=== PATIENT | female | born 1985 | race Caucasian/White ===

== ENCOUNTER → 2021-07-22 11:32 | Outpatient (CLI) | payer MEDICAID, SELFPAY ==
[2021-07-22 12:38] LABS: Basophils % 0.6 % (0.1-2.0); Eosinophils # 0.3 K/mm3 (0.0-0.4); Hemoglobin 13.8 g/dL (12.2-16.2); Lymphocytes # 1.3 K/mm3 (0.7-4.5); Lymphocytes % 23.2 % (10-50); Mean Corpuscular HGB Conc 31.5 g/dL (31.8-35.4); Mean Corpuscular Hemoglobin 30.1 pg (27.0-31.2); Mean Corpuscular Volume 95.5 fl (81-99); Mean Platelet Volume 8.1 fl (7.4-10.4); Monocytes # 0.2 K/mm3 (0.1-1.0); Monocytes % 3.4 % (1.7-9.3); Neutrophils # 3.7 K/mm3 (1.8-7.8); Neutrophils % 66.9 % (37.0-80.0); Platelet Count 232 K/mm3 (142-424); Red Cell Distribution Width 13.7 % (11.5-17.5); White Blood Count 5.6 K/mm3 (4.8-10.8)
[2021-07-22 13:40] LABS: Alanine Aminotransferase 21 U/L (12-78); Albumin Level 4.1 g/dl (3.5-5.0); Albumin/Globulin Ratio 1.4 (1.1-1.8); Alkaline Phosphatase 70 U/L (38-126); Anion Gap 10.1 mEq/L (5-15); Aspartate Amino Transferase 36 U/L (14-36); Bilirubin,Total 0.4 mg/dl (0.2-1.3); Blood Urea Nitrogen 6 mg/dl (7-17); Carbon Dioxide 25 mmol/L (22.0-30.0); Chloride 107 mmol/L (98-107); Chol/HDL Ratio 3.2 (1-3.5); Cholesterol 214 mg/dl (140-200); Estimated Glomerular Filt Rate 112 ml/min (>60); GFR (African American) 135 ML/MIN (>60); Globulin 2.9 g/dL (1.3-3.2); Glucose 119 mg/dl (74-100); HDL Cholesterol 66 mg/dl (40-60); Potassium 4.1 mmoL/L (3.5-5.1); Sodium 138 mmol/L (136-145); Triglycerides 120 mg/dl (30-150); VLDL Cholesterol 24 mg/dL (0-40)
[2021-07-22 14:08] LABS: Direct LDL Cholesterol 120.05 mg/dL (100-129)
[2021-07-22 14:12] LABS: Thyroid Stimulating Hormone 1.24 uIU/mL (0.465-4.68)
[2021-07-22 14:37] LABS: Hemoglobin A1C 5.1 % (4.0-6.0)
[2021-07-22 15:18] LABS: Amphetamine/Metha Screen,Urine Negative ng/ml (<1000); Barbiturates Screen,Urine Negative ng/ml (<200)
[2021-07-22 15:19] LABS: Benzodiazepines Screen,Urine Negative ng/ml (<200)
[2021-07-22 15:20] LABS: Cannabinoid Screen,Urine Negative ng/ml (<50); Cocaine Screen,Urine Negative ng/ml (<300)
[2021-07-22 15:21] LABS: Methadone Screen,Urine Negative ng/ml (<300)
[2021-07-22 15:22] LABS: Opiate Screen,Urine Negative ng/ml (<300); Phencyclidine Screen,Urine Negative ng/ml (<25)
== END ==
LOC: LAB 11:33 → LAB.DROPOF 13:43
PROVIDERS: PCP Family Medicine; Visit Provider Family Medicine
DX: D68.61 Antiphospholipid syndrome (principal); M54.9 Dorsalgia, unspecified
CPT/HCPCS: 36415; 80053; 80061; 80305; 83036; 84443; 85025

== ENCOUNTER → 2021-08-22 16:00 | Outpatient (CLI) | payer MEDICAID, SELFPAY ==
[2021-08-22 18:51] LABS: Alanine Aminotransferase 32 U/L (12-78); Albumin Level 4.3 g/dl (3.5-5.0); Albumin/Globulin Ratio 1.3 (1.1-1.8); Alkaline Phosphatase 88 U/L (38-126); Anion Gap 11.7 mEq/L (5-15); Aspartate Amino Transferase 53 U/L (14-36); Bilirubin,Total 0.6 mg/dl (0.2-1.3); Blood Urea Nitrogen 3 mg/dl (7-17); Carbon Dioxide 25 mmol/L (22.0-30.0); Chloride 106 mmol/L (98-107); Estimated Glomerular Filt Rate 112 ml/min (>60); GFR (African American) 135 ML/MIN (>60); Globulin 3.2 g/dL (1.3-3.2); Glucose 98 mg/dl (74-100); Lipase 154 U/L (23-300); Potassium 4.7 mmoL/L (3.5-5.1); Sodium 138 mmol/L (136-145); Total Protein,Serum 7.5 g/dl (6.3-8.2)
== END ==
PROVIDERS: Visit Provider Family Medicine
DX: K85.90 Acute pancreatitis without necrosis or infection, unspecified (principal)
CPT/HCPCS: 80053; 83690

== ENCOUNTER → 2021-09-03 10:08 | Outpatient (CLI) | payer MEDICAID, SELFPAY ==
[2021-09-03 11:23] LABS: Basophils % 0.7 % (0.1-2.0); Eosinophils # 0.2 K/mm3 (0.0-0.4); Eosinophils % 5.9 % (0.1-12.0); Hematocrit 41.5 % (37.0-47.0); Hemoglobin 13.5 g/dL (12.2-16.2); Lymphocytes # 1.5 K/mm3 (0.7-4.5); Lymphocytes % 36.3 % (10-50); Mean Corpuscular HGB Conc 32.6 g/dL (31.8-35.4); Mean Corpuscular Hemoglobin 30.7 pg (27.0-31.2); Mean Corpuscular Volume 94.1 fl (81-99); Monocytes # 0.3 K/mm3 (0.1-1.0); Monocytes % 7.4 % (1.7-9.3); Neutrophils % 49.6 % (37.0-80.0); Platelet Count 276 K/mm3 (142-424); Red Blood Count 4.41 M/mm3 (4.20-5.40); Red Cell Distribution Width 13.3 % (11.5-17.5)
[2021-09-03 11:31] LABS: INR 1.03 (0.9-1.1); Prothrombin Time 11.6 seconds (10.1-12.5)
[2021-09-03 13:32] LABS: Chloride 109 mmol/L (98-107); Potassium 4.3 mmoL/L (3.5-5.1); Sodium 135 mmol/L (136-145)
[2021-09-03 13:34] LABS: Amylase 63 U/L (30-110); Blood Urea Nitrogen 9 mg/dl (7-17); Estimated Glomerular Filt Rate 112 ml/min (>60); GFR (African American) 135 ML/MIN (>60)
[2021-09-03 13:35] LABS: Alanine Aminotransferase 22 U/L (12-78); Albumin Level 3.8 g/dl (3.5-5.0); Albumin/Globulin Ratio 1.3 (1.1-1.8); Alkaline Phosphatase 62 U/L (38-126); Anion Gap 5.3 mEq/L (5-15); Aspartate Amino Transferase 35 U/L (14-36); Bilirubin,Total 0.5 mg/dl (0.2-1.3); Calcium 7.9 mg/dl (8.4-10.2); Carbon Dioxide 25 mmol/L (22.0-30.0); Globulin 2.9 g/dL (1.3-3.2); Glucose 67 mg/dl (74-100); Lipase 221 U/L (23-300); Total Protein,Serum 6.7 g/dl (6.3-8.2)
--- NOTE | 2021-09-04 07:57 | PC.NURSE ---
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 States on pt portal she has COVID results of positive and pt would like to double check. Pt covid swab is positive at this time. pt is scheduled for gallbladder surgery in the am with Dr Vang. was contacted and notified of results. per Dr Vang, notify pt that she needs to reschedule her surgery due to positive test results. Surgery department also notified at this time.
== END ==
PROVIDERS: Visit Provider Surgery
DX: Z01.812 Encounter for preprocedural laboratory examination (principal); U07.1 COVID-19; K85.10 Biliary acute pancreatitis without necrosis or infection
CPT/HCPCS: 36415; 80053; 82150; 83690; 85025; 85610; C9803; U0003; U0005

== ENCOUNTER → 2021-09-14 14:23 | Outpatient (CLI) | payer MEDICAID, SELFPAY | PROVIDERS: PCP Nurse Practitioner Family; Visit Provider Nurse Practitioner Family | DX: R55 Syncope and collapse (principal) | CPT/HCPCS: 93225; 93226 ==

== ENCOUNTER → 2021-09-17 10:45 | Outpatient (CLI) | payer MEDICAID, SELFPAY | PROVIDERS: PCP Family Medicine; Visit Provider Surgery | DX: Z01.812 Encounter for preprocedural laboratory examination (principal); Z11.52 Encounter for screening for COVID-19; K85.10 Biliary acute pancreatitis without necrosis or infection | CPT/HCPCS: C9803; U0003; U0005 ==

== ENCOUNTER 2021-09-20 06:05 | Day surgery (SDC) | payer MEDICAID, SELFPAY ==
[2021-09-15 14:23] VITALS: BMI 37.6
[2021-09-20] VITALS (16 sets, daily range): BP systolic 117–168; BP diastolic 55–94; PULSE 88–97; RESP 16–18; TEMP 36.2–43; O2SAT 96–100
[2021-09-20 06:21] LABS: Urine Pregnancy, HCG Qual. Negative (Negative)
--- NOTE | 2021-09-20 07:03 | HMH.ANESCL ---
[facility] Anesthesia Checklist - Structural Data Admitted From: Home Planned Operative Procedure/s: luis m garay Consent for Planned Operative Procedure(s) Verified: Yes - Additional verifications Anesthesia Reactions: No Hx Blood Transfusions: No Blood Transfusion Reaction: No - Airway Assessment C-Spine Mobility Assessed: Yes TMJ Mobility Assessed: Yes Dentition: Edentulous - Neurological Assessment Level of Consciousness: Awake, Alert, Appropriate - Anesthesia Plan Anesthesia Risk discussed: Yes Anesthesia Plan: Verified ASA Class: III Anesthesia Type: General [facility] History I have reviewed the patient's past medical history: Yes Medical History: Denies:: Cancer, Diabetes Mellitus Type 1, Diabetes Mellitus Type 2, Internal Pacemaker, MRSA, Seizures *Have you ever received a pneumonia vaccine?: No *Have you received a flu vaccine this season?: Yes Other Medical History: Reports: Other. Denies: Blood Transfusion Reaction Anesthesia experience/problems:: none Other Surgeries: No: Pacemaker Amputation: No Fractures: No - *Social History Smoking Status: Current every day smoker Tobacco Type: cigarettes # Packs/Day (cigarettes): 1 Alcohol Intake: current Alcohol Intake Frequency:: a few times a month Substance Use Type: denies use *Occupational Status:: disabled Housing: house Household Members: family *Travel in the last 8 weeks: None Family Hx:: No significant family history
--- NOTE | 2021-09-20 08:36 | XR_ITS ---
FINAL REPORT CLINICAL HISTORY: CHOLANGIOGRAM 0.15 fluoro time FINDINGS: Intraoperative cholangiogram was performed. No definite filling defect is identified to suggest an obstruction. IMPRESSION: No definite filling defect identified. Reviewed, Interpreted and Dictated by Richard Estes III, MD Transcribed by Annamarie Hill Authenticated by Richard Estes III, MD on 09/20/2021 09:18:21 AM [facility]
--- NOTE | 2021-09-20 08:55 | HMH.OPNOTE ---
Date of procedure: 09/20/21 Pre-op Diagnosis:: History of biliary pancreatitis Post-op Diagnosis:: Same Procedure performed:: Laparoscopic cholecystectomy with intraoperative cholangiogram Surgeon:: Richard Vang MD DIRECTOR DESIGN:: Billy Armstrong Anesthesia: GETA Estimated blood loss (mL): 15 Clinical Note:: Patient is a 36-year-old female from [facility] reportedly referred by Dr. Love for gallbladder. Patient states that she is originally from [place]. She has known gallstones since at least 2017. She underwent laparoscopic gastric bypass [id number] in 2018. She states that the tentative plan at that time was for removal of her gallbladder but this could not be done as her liver was too big . Patient had apparently developed acute onset of epigastric pain and had reportedly been seen in [facility]. She was diagnosed with pancreatitis. She states that this was by blood work. She apparently did not have imaging. She was managed as an outpatient from the emergency department. She presented to [facility] and was admitted on 08/14/2021 and discharged on 08/17/2021 for acute pancreatitis. She apparently had elevated lipase. Liver function tests were unremarkable. CT scan did reveal findings of radiographic pancreatitis with a moderately distended gallbladder. Gallbladder ultrasound revealed multiple gallstones, gallbladder wall thickening, with normal 4 mm common bile duct. There was noted to be some coarse architecture and heterogenicity of the liver. Interestingly she had a HIDA scan with CCK which did reveal a normal ejection fraction. Interestingly, she was discharged for follow-up as an outpatient. She was seen as a surgical consultation. Based on prior history is felt that she may have had biliary pancreatitis. Options were discussed. She wished to pursue surgery. Plan was made for laparoscopic with possibly open cholecystectomy with intraoperative cholangiogram. Operative findings:: He had a distended slightly thickened gallbladder with numerous small stones with a moderate stone. She had some mild fatty infiltration of the liver. There was a prominent vessel posterior to the gallbladder in the liver bed. Operative note:: Patient was taken to the operating room. She was given preoperative intravenous antibiotics. In the operating room she was placed in a supine position. General anesthesia was induced via endotracheal tube. Abdomen was prepped and draped in the standard surgical fashion. Subumbilical skin incision was made. Dissection was carried down to the fascia. Abdominal wall dose was inserted. Veress needle was inserted but good insufflation pressures could not be achieved. Veress needle was then inserted through a small 1 to 2 mm incision in the left subcostal area. CO2 pneumoperitoneum was achieved. 11 mm optical trocar was inserted at the umbilicus. Intraperitoneal contents were visualized. She was positioned in reverse Trendelenburg with left side down. A couple of 5 mm trochars were inserted in the right upper abdomen. 10 mm trocar was inserted in the epigastrium. There were some adhesions of omentum focally to a point in the right upper abdomen likely previous laparoscopy trocar site. This was taken down using CHARANJIT ultrasonic robotic jose f. She had some mild fatty infiltration of the liver. Gallbladder was grasped retracted anteriorly and superiorly over the dome of the liver. Infundibulum the gallbladder was retracted anterior laterally. Blunt dissection was carried out the neck of the gallbladder bluntly incising the visceral peritoneum. Obvious cystic artery was actually anterior to the cystic duct. This was coagulated with CHARANJIT ultrasonic harmonic jose f and divided. Dissection was carried out of the cystic duct. There was noted to be multiple small stones in the neck of the gallbladder. Cystic duct was isolated. It was clipped proximal to the gallbladder.
--- NOTE | 2021-09-20 09:05 | P.PN_ITS ---
[facility] Anesthesia Record Part I Intake, IV Amount: 1,200 Estimated blood loss (mL): 10 Urine output (mL): 0 Blood Pressure: 168/94 SaO2: 100 Pulse Rate: 94 Respiratory Rate: 16 Temperature: 99.5 F Patient is:: Drowsy, Stable Stable to PACU at:: 09:00
--- NOTE | 2021-09-20 09:47 | PC.NURSE ---
0942-detailed report called to ARLEY Hanson, pt reports pain continues to slowly ease, denies nausea, vss 0944-pt transported to post op via stretcher w/yumiko rails up and left in care of ARLEY Hanson with bed locked in lowest position, vss, pt stable
--- NOTE | 2021-09-20 09:55 | P.PN_ITS ---
[facility] Anesthesia Record Part II Discharge Time: 09:40 Destination: Surgical Day Care (OP Surgery) PACU nurse assessment reviewed?: Yes Patient Condition:: Good Anesthesia Complications:: None Swallowing reflex intact?: Yes Cyanosis?: No Blood Pressure: 134/70 Pulse Rate: 88 Temperature: 99.5 F Mental Status: Alert & Oriented Pain level:: 6 Nausea and/or vomitting:: None Intake, IV Amount: 0
== END 2021-09-20 10:30 | disposition home or self-care (01) ==
LOC: OR 06:06
PROVIDERS: PCP Family Medicine; Visit Provider Surgery
PROC: 0FT44ZZ Resection of Gallbladder, Percutaneous Endoscopic Approach (ICD-10-PCS; CPT 47562; principal; 2021-09-20 07:30)
DX: K85.10 Biliary acute pancreatitis without necrosis or infection (principal); Z79.899 Other long term (current) drug therapy; F17.210 Nicotine dependence, cigarettes, uncomplicated; R29.6 Repeated falls
CPT/HCPCS: 47563; 74300; 81025; 96374; J2405; J2710

== ENCOUNTER → 2021-10-05 08:05 | Outpatient (CLI) | payer MEDICAID, SELFPAY ==
--- NOTE | 2021-10-05 | CA_ITS ---
APPROVED REPORT Exam: Exercise Treadmill Technologist: Teena Carlson Ht: 5 ft 11 in Wt: 285 lbs BSA: 2.45 m2 HR: 77 bpm BP: 136/76 mmHg Indications: Chest pain Medical History Medications: Clonidine,,,,, PERCOCET,,,,, Zolpidem,,,,, FluTICASONE,,,,, Cyclobenzaprine,,,,, Metronidazole,,,,, ONdansetron,,,,, Oxcarbazepine,,,,, UBrelvy,,,,, Stress Test Details Test: Neeraj HR Resting HR: 95 bpm Max Heart Rate (APMHR): 182.831694 bpm Max HR Achieved: 174 bpm Target HR (85% APMHR): 154.793632 bpm % of APMHR: 95.60 Recovery HR: 86 bpm BP Resting BP: 136.0/76.0 mmHg Max BP: 160.0/80.0 mmHg Recovery BP: 133.0/67.0 mmHg ECG Resting ECG: Normal sinus rhythm, ST abnormalities inferiorly and laterally. Clinical Exercise duration: 04:58 min Highest Stage Achieved: Exercise capacity: 7.0 METs Stress ECG Conclusion Patient exercised 4:58 into stage II Neeraj Protocol. Test stopped due to shortness of air, fatigue. Symptoms: Shortness of air. No chest pain. Arrhythmias/Ectopy: None ST-T Changes: Exaggeration of baseline ST-T abnormalities. Conclusion: Non-diagnostic GXT due to baseline abnormalities. GXT only (no imaging). Test Summary REST . . . . . . . Sitting REST . . . . . . . Standing REST 02:48 0.0 0.0 95 . 136/ 76 . . Stage 1 01:00 10.0 1.7 121 . . . . Stage 1 02:00 10.0 1.7 138 . . . . Stage 1 . . . . . . . Shortness of Breath Stage 1 03:00 10.0 1.7 146 . 160/ 80 . . Stage 2 01:00 12.0 2.5 160 . . . . Stage 2 01:58 12.0 2.5 171 . . . Stop exercise at 04:58 RECOVERY 01:00 0.0 0.0 144 . . . . RECOVERY 02:00 0.0 0.0 116 . 156/ 80 . . RECOVERY 03:00 0.0 0.0 88 . 156/ 80 . . RECOVERY 04:00 0.0 0.0 89 . 130/ 62 . . RECOVERY 05:00 0.0 0.0 84 . 130/ 62 . . RECOVERY 05:31 0.0 0.0 90 . 133/ 67 . . Electronically signed by : Clive Keller MD 10/05/2021 18:12:26
--- NOTE | 2021-10-05 08:06 | CA_ITS ---
APPROVED REPORT EXAM: Comprehensive 2D, Doppler, and color-flow Echocardiogram Substance Abuse Rn: Jackie Espinosa CRT Ht: 5 ft 11 in Wt: 285lbs BSA: 2.45 BP: 136/82 mmHg Indications: Chest Pain, Obesity, Fatigue, chest pain 2D Dimensions Aortic Root 2.37 cm LA Volume 54.80 mL LA Volume Index 22.40 mL/m2 (M/F) 16-34 M-Mode Dimensions RVDd 2.28 cm (0.9-2.6) LA Diam 4.04 cm (1.9-4.0) LVDd 5.48 cm (3.5-5.7) Ao Diam 4.13 cm (2.0-3.7) LVDs 3.91 cm (3.5-5.7) IVSd 1.02 cm (0.6-1.1) PWd 0.84 cm (0.6-1.1) EF (Teich) 54.70% FS 28.60% EDV (Teich) 146.20 mL TAPSE 1.98 (<1.7) ESV (Teich) 66.30 mL LV Diastology E Decel Time 217.00 (160-240 msec) E/A Ratio 1.41 MED E' 8.40 (< 7 cm/sec) MED A' 6.80 cm/s E'/MED E' Ratio 9.36 (>14) LAT E' 11.90 (<10 cm/sec) LAT A' 8.60 cm/s E/LAT E' Ratio 6.61 (>14) Aortic Valve AO Peak GR. 6.00 mmHg Mitral Valve MV E Max Gadiel. 79.00 (40-130 cm/s) MV A Velocity 56.00 (40-130 cm/s) E/A Ratio 1.41 MV Decel. Time 217.00 (160-240 ms) MV PHT 63.00 ms Pulmonary Valve PV Peak Velocity 85.00 (50-150 cm/s) Tricuspid Valve TR P. Velocity 219.00 cm/s RAP Estimate 10.00 mmHg RVSP 29.30 mmHg Left Ventricle Left atrium is normal size, left ventricle is normal size, there is no concentric left ventricular hypertrophy, visually estimated ejection fraction 55% with no regional wall motion abnormality, diastolic parameters are within normal range. Right Ventricle Right atrium and right ventricle are normal size and contractility. Aortic Valve Aortic valve is grossly normal, there is no aortic stenosis or aortic insufficiency. Mitral Valve Mitral valve grossly normal, there is trace mitral regurgitation. Tricuspid Valve Tricuspid grossly normal, there is trace tricuspid regurgitation, tricuspid regurgitation jet velocity is inadequate for calculation of the right ventricular systolic pressure. Pulmonic Valve Pulmonic valve is poorly visualized. Great Vessels Aortic root is normal size. Inferior vena cava normal size with normal inspiratory collapse. Pericardium No significant pericardial effusion. Conclusion 1. Normal left ventricular size, preserved left ventricular systolic function, visually estimated ejection fraction 55% with no regional wall motion abnormality, diastolic parameters are within normal range. 2. Trace mitral and tricuspid regurgitation. 3. No significant pericardial effusion. 4. Inferior vena cava is normal size with normal inspiratory collapse. Electronically signed by : Harry Woods MD 10/05/2021 20:55:04
== END ==
PROVIDERS: PCP Family Medicine; Visit Provider Nurse Practitioner Family
DX: R07.9 Chest pain, unspecified (principal)
CPT/HCPCS: 93017; 93306

== ENCOUNTER → 2021-10-12 11:30 | Outpatient (CLI) | payer MEDICAID, SELFPAY ==
--- NOTE | 2021-10-12 | CA_ITS ---
APPROVED REPORT Exam: Pharmacologic Technologist: Blanquita Sanchez, Ht: 5 ft 11 in Wt: 281 lbs BSA: 2.44 m2 HR: 73 bpm BP: 122/61 mmHg Rhythm: NSR, ST-T abns inferiorly and laterally Medical History Medications: Clonidine,,,,, Metoprolol,,,,, Asa,,,,, Zolpidem,,,,, Clotrimazole,,,,, FluTICASONE,,,,, Oxcarbazepine,,,,, CyclobenAPRINE,,,,, ONdanESETRAN,,,,, Norgestimate,,,,, UBrelvy,,,,, Bactrim,,,,, Stress Test Details Test: LEXISCAN HR Resting HR: 72 bpm Max Heart Rate (APMHR): 182.349089 bpm Max HR Achieved: 120 bpm Target HR (85% APMHR): 154.757619 bpm % of APMHR: 65.93 Recovery HR: 92 bpm BP Resting BP: 122/61 mmHg Max BP: 127/62 mmHg Recovery BP: 119.0/67.0 mmHg ECG Resting ECG: NSR, ST-T abns inferiorly and laterally Clinical Exercise duration: 04:01 min Highest Stage Achieved: Exercise capacity: 1.0 METs Stress ECG Conclusion During lexiscan pt experinced mild chest tightness, mild SOA, quizzy stomach. No arrhythmias noted. Mild exaggeration of baseline abns. Non diagnostic lexiscan stress. Myoview images reported separately. Electronically signed by : Harry Woods MD 10/12/2021 18:25:18
--- NOTE | 2021-10-12 11:34 | NM_ITS ---
APPROVED REPORT Exam: Nuclear Stress Test Indication: OBESITY, TOB USE, FM HX, C.P., SOB, SYNCOPE, FATIGUE, ABN EKG Patient Location: Outpatient Stress Tech: Blanquita Sanchez NM Tech:Kaila Kuo TATOJerson RT (R)(N)(M) Ht: 5 ft 11 in Wt: 281 lbs Bra Size: 44DD HR: 73 bpm BP: 122/61 mmHg BSA: 2.44 m2 BMI: 39.1 History: OBESITY, TOB USE, FM HX, C.P., SOB, SYNCOPE, FATIGUE, ABN EKG Procedure: Patient received a 0.4 mg of intravenous Lexiscan, resting heart rate 73 bpm, resting blood pressure 122/61 mmHg, with Lexiscan maximum heart rate achived was 112 bpm which is Less than 85 % of the maximum predicted heart rate and blood pressure was 127/62 mmHg. MILD C.P. Electrocardiogram Resting electrocardiogram shows sinus rhythm nonspecific ST-T changes, with Lexiscan there is less than 1.[address] segment depression noted from the baseline EKG. The EKG portion of the Lexiscan is nondiagnostic. Cardiac Stress and Resting SPECT Images: Cardiac Stress and Resting SPECT images were obtained using technetium 99m Myoview 30.1 mCi stress and 10.60 mCi at rest. Gated SPECT for analysis of segmental wall motion and calculation of the ejection fraction also done. Cardiac stress and resting SPECT images show uniform myocardial activity without segmental perfusion abnormality, computer derived ejection fraction is 41% with left ventricular global hypokinesis. Conclusion: 1. The EKG portion of the Lexiscan is nondiagnostic. 2. No scintigraphic evidence of reversible ischemia seen, computer ejection fraction is 41% with left ventricular global hypokinesis. Right ventricle is normal size and contractility. 3. Abnormal Lexiscan Myoview study due to low ejection fraction. Electronically signed by : Harry Woods MD 10/12/2021 19:11:56
== END ==
PROVIDERS: PCP Family Medicine; Visit Provider Nurse Practitioner Family
DX: R07.9 Chest pain, unspecified (principal); G89.29 Other chronic pain; M54.9 Dorsalgia, unspecified; Z82.49 Family history of ischemic heart disease and other diseases of the circulatory system
CPT/HCPCS: 78452; 93017; A9502; J2785

== ENCOUNTER → 2022-02-27 08:04 | Outpatient (POV) | payer MEDICAID, SELFPAY ==
[2022-02-27 08:46] VITALS: BP 136/84; PULSE 95; RESP 18; TEMP 36.8; O2SAT 96; BMI 37.0
--- NOTE | 2022-02-27 09:23 | HMH.PMCON ---
Assessment and Plan (1) Low back pain Status: Acute Category: Medical Code(s): M54.50 - Low back pain, unspecified (2) Bilateral leg pain Status: Acute Category: Medical Code(s): M79.604 - Pain in right leg; M79.605 - Pain in left leg - Assessment and plan all Dx Assessment and Plan for all problems:: Patient states she is having worsening low back pain that occasionally radiates into her bilateral lower extremities. I have discussed with the patient regarding our office being a injective therapy clinic and that I think she would benefit highly from these injections. Patient had negative disposition for the entire clinic visit. Patient has no interest in doing injections or physical therapy at this time. I have told her I would like to get a copy of her records/MRI imaging from her doctor at [facility]. I have explained to the patient at this time and limited in what I can offer her without having updated imaging. I did tell the patient that we would be unable to prescribe opioids and benzos together and that typically we would not take over her oral medication unless in combination with other treatments. I did talk to her regarding starting a compounding cream and that we would follow-up in office in 2 weeks following getting her imaging from . Patient will return to clinic in 2 weeks for follow-up and reevaluation of symptoms Patient has been instructed to contact the clinic with any concerns before the next appointment. Dr. Schafer has reviewed this note and agrees with this plan of care. This note was dictated using voice recognition software and make contain errors or omissions. Patient left our office without scheduling a follow-up visit. Prescription of the compounding cream will be put on hold. HPI - Data of Consult Patient: new to practice Consult date: 02/27/22 Requesting Physician: Inge Bose APRN Primary Care Provider: Rios Allred MD Family Provider: Clive Love - Consult Narrative Reason for consult: Low back pain, bilateral leg pain History of present illness: Ms. Olguin is a 36 year old female resents today as a new new patient. She is a referral from Clive Love. Patient states that she is been experiencing constant low back pain that occasionally radiates into both bilateral extremities. Patient denies any trauma or injury to the sites. She states that she has sciatic issues bilaterally, she has degenerative disc disease of her lumbar spine and also has neuropathy unrelated to diabetes. Patient rates her pain a 9 out of 10 today patient states that she has seen a pain doctor in the past in [place]. She also states that she has seen a Ortho surgeon at [facility]. She states that this physician Dr. Mata at has done imaging and that she has appointment with him tomorrow. She states that he has stated that she does need surgery for her condition. Patient has had gastric bypass in the past and cannot tolerate any NSAIDs. Patient states that she has tried [id number] Tylenol and it does not do anything. She states she has used heat and ice with no improvement of symptoms. She also states she has used multiple [id number] topical creams and patches with no relief. She states that she has been to the ER recently where the ER physician prescribed her Percocet 5 mg along with Flexeril, lidocaine patches and Valium and this did give her relief. Patient currently takes gabapentin 300 mg 3 times a day that is written by Dulce Gomez in [place]. She is also managed with oxycodone 10 mg twice a day and Ambien 10 mg daily, written by Dr. Love in [facility]. Patient is prescribed clonazepam 0.5 mg twice a day by Dr. Jefry Montemayor in [place]. Patient states she has had 1 injection in the past that provided no relief and actually made her symptoms worse.patient said that she is not interested in injective therapy. Patient states that she has been
== END ==
PROVIDERS: PCP Emergency Medicine; Visit Provider Nurse Practitioner Family
DX: M54.50 Low back pain, unspecified (principal); M79.604 Pain in right leg; M79.605 Pain in left leg
CPT/HCPCS: 99202; G0463

== ENCOUNTER → 2022-05-30 09:17 | Outpatient (POV) | payer MEDICAID, SELFPAY ==
[2022-05-30 09:37] VITALS: BP 113/60; PULSE 74; RESP 18; O2SAT 98; BMI 35.9
--- NOTE | 2022-05-30 10:52 | EXP.PAIN.SOA ---
[facility] Pain Management SOAP Note Subjective:: Patient is a pleasant 36-year-old female who presents today for follow-up. We are currently treating the patient for degenerative disc disease of lumbar spine with lumbar radiculopathy symptoms, low back pain, bilateral leg pain. Today she rates her pain a 9 out of 10. Patient denies any change location or type of pain she experiences. Patient does state that her pain is all in her low back that radiates into her lower extremities. She describes this as a aching, throbbing sensation that is worse with increased activity. Since our last visit the patient has had a hairline fracture of her left ankle that she was seen at [facility] for. Today she presents with crutches. Patient states that she fell in a hole in her yard on Sunday resulting in this injury. Patient has seen a doctor in the past in [place]. She was last seen a Ortho surgeon at the [facility]. She states that Dr. Mata had done imaging and was stating that since her last fall in January she is now a surgical candidate however the patient states that he has concerns of possible paralyzation and so he is not proceeded forward with this plan of care. Patient states she does have a gastric bypass in the past and cannot tolerate any NSAIDs. Patient states she has tried [id number] Tylenol but it does not do anything for her pain symptoms. Patient also states she has tried heat and ice with no improvement as well as topical creams and patches. Patient states that she has had injections in the past both resulting in her going to the ER due to worsening, burning pain following these and is not interested in injective therapy at this time. Patient is currently managed with gabapentin 600 mg 3 times a day, clonazepam 0.5 mg twice a day and Tylenol 3 3 times a day by her primary care doctor Dr. Love. Patient denies any side effects from these medications. She states these medications do help manage her pain symptoms. Patient also states she has been to a chiropractor and physical therapy in the past however neither of these options provided any improvement of her symptoms. Her Maciej is [phone]. It has been reviewed and appropriate. Review of Systems: General: No recent weight changes, no fever, no sleep disturbances Respiratory: No cough, no shortness of air, no recurring pulmonary infections Cardiovascular/peripheral vascular: No chest pain, no palpitations, no edema, no shortness of breath Gastrointestinal: No new onset incontinence, normal bowel movements reported Genitourinary: No new onset incontinence Musculoskeletal: Low back pain, bilateral leg pain Psychiatric: [Normal mood/affect] Neurological: [Denies weakness in extremities], [denies balance issues] Objective:: Physical Exam: General: Alert and oriented x3, no acute distress, pleasant and cooperative Lungs: Respirations even and unlabored, symmetrical chest expansion Eyes: PERRL Musculoskeletal: Flexion and extension of lumbar [spine] somewhat guarded secondary to pain, [antalgic gait noted] Neurological: Speech clear, no gross sensory deficit Assessment:: Degenerative disc disease of lumbar spine with lumbar radiculopathy symptoms, low back pain, bilateral leg pain Plan:: Patient continues to experience significant pain in her low back that radiates into her bilateral lower extremities. Patient did have limited range of motion of her lumbar spine during today's visit. Patient has tried and failed conservative therapy such as oral medications, topicals, heat and ice, injective therapy, physical therapy, at home stretching and exercise longer than 6 weeks. I have discussed with the patient that she may be a beneficial candidate for a spinal cord stimulator trial. Risk and benefits were discussed with the patient as well as educational handouts given out. Patient would like to proceed forward with this plan of care. I will order a psychiatric evaluation with
== END ==
PROVIDERS: PCP Family Medicine; Visit Provider Nurse Practitioner Family
DX: M51.16 Intervertebral disc disorders with radiculopathy, lumbar region (principal); M79.604 Pain in right leg; M79.605 Pain in left leg; Z72.0 Tobacco use
CPT/HCPCS: 99212; G0463

== ENCOUNTER → 2022-06-21 12:44 | Outpatient (CLI) | payer MEDICAID, SELFPAY ==
[2022-06-21 13:29] LABS: Basophils # 0.1 K/mm3 (0-0.2); Eosinophils # 0.2 K/mm3 (0.0-0.4); Eosinophils % 3.3 % (0.1-12.0); Hematocrit 40.7 % (37.0-47.0); Hemoglobin 13.2 g/dL (12.2-16.2); Lymphocytes # 1.8 K/mm3 (0.7-4.5); Lymphocytes % 37.9 % (10-50); Mean Corpuscular HGB Conc 32.5 g/dL (31.8-35.4); Mean Corpuscular Hemoglobin 32.7 pg (27.0-31.2); Mean Corpuscular Volume 100.6 fl (81-99); Mean Platelet Volume 7.9 fl (7.4-10.4); Monocytes # 0.3 K/mm3 (0.1-1.0); Monocytes % 5.9 % (1.7-9.3); Neutrophils # 2.4 K/mm3 (1.8-7.8); Neutrophils % 51.8 % (37.0-80.0); Platelet Count 190 K/mm3 (142-424); Red Blood Count 4.05 M/mm3 (4.20-5.40); Red Cell Distribution Width 12.9 % (11.5-17.5); White Blood Count 4.7 K/mm3 (4.8-10.8)
[2022-06-21 15:27] LABS: Alanine Aminotransferase 19 U/L (12-78); Alkaline Phosphatase 77 U/L (38-126); Anion Gap 11.4 mEq/L (5-15); Aspartate Amino Transferase 31 U/L (14-36); Bilirubin,Unconjugated 0.1 mg/dL (0.0-1.1); Blood Urea Nitrogen 7 mg/dl (7-17); Calcium 8.9 mg/dl (8.4-10.2); Carbon Dioxide 26 mmol/L (22.0-30.0); Chloride 108 mmol/L (98-107); Chol/HDL Ratio 4.2 (1-3.5); Cholesterol 168 mg/dl (140-200); Estimated Glomerular Filt Rate 93 ml/min (>60); GFR (African American) 113 ML/MIN (>60); Glucose 79 mg/dl (74-100); HDL Cholesterol 40 mg/dl (40-60); Magnesium 1.9 mg/dl (1.6-2.3); Potassium 4.4 mmoL/L (3.5-5.1); Sodium 141 mmol/L (136-145); Total Protein,Serum 6.7 g/dl (6.3-8.2); Triglycerides 169 mg/dl (30-150); VLDL Cholesterol 34 mg/dL (0-40)
[2022-06-21 15:29] LABS: Bilirubin,Total < 0.1 mg/dl (0.2-1.3)
[2022-06-21 15:30] LABS: Bilirubin,Indirect 0.1 mg/dL (0.0-0.9)
[2022-06-21 15:38] LABS: Direct LDL Cholesterol 92.32 mg/dL (100-129)
[2022-06-21 15:44] LABS: Free T4 (Free Thyroxine) 1.06 ng/dl (0.78-2.19)
[2022-06-21 15:57] LABS: Thyroid Stimulating Hormone 1.34 uIU/mL (0.465-4.68)
== END ==
PROVIDERS: PCP Family Medicine; Visit Provider Internal Medicine
DX: R06.00 Dyspnea, unspecified (principal); R00.2 Palpitations; I20.8 Other forms of angina pectoris; R94.30 Abnormal result of cardiovascular function study, unspecified; R94.31 Abnormal electrocardiogram [ECG] [EKG]
CPT/HCPCS: 36415; 80048; 80061; 80076; 83735; 84439; 84443; 85025

== ENCOUNTER 2022-06-29 08:10 | Day surgery (SDC) | payer MEDICAID, SELFPAY ==
[2022-06-29] VITALS (12 sets, daily range): BP systolic 114–152; BP diastolic 76–98; PULSE 59–92; RESP 16–18; TEMP 37; O2SAT 93–100; BMI 36.5
--- NOTE | 2022-06-29 07:10 | IR_ITS ---
APPROVED REPORT Patient Location: Outpatient Retail Service Technician: ADY Restrepo RT (R) PROCEDURES Left heart catheterization Left ventriculogram Selective coronary injury INDICATION High risk abnormal Myoview, Persistent angina pectoris, Informed consent was obtained prior to the procedure. COMPLICATIONS None Estimated Blood Loss: Less than 10 ML TECHNIQUE One percent lidocaine used to anesthetize the right anterior aspect of the wrist. The right radial artery was accessed via the Seldinger technique. A 6 Yi sheath was placed in the right radial artery. 2.5 mg of verapamil, 800 mcg of nitroglycerin, 1mg Lidocaine and 5000 U Heparin were given through the arterial sheath. The papa catheter was also used to perform left heart catheterization, left ventriculogram and selective coronary angiogram. At the end of the procedure the sheath was removed good hemostasis was achieved using Traclet band, patient was transferred to the postop holding area in stable condition. ANGIOGRAPHIC RESULTS The left main artery Normal The left anterior descending artery Normal The circumflex artery Normal The right coronary artery Is dominant and has proximal 10 to 20% stenoses The BLANTON ventriculogram reveals Ejection fraction 50% The left ventricular end-diastolic pressure 25 mmHg IMPRESSION Mild nonflow limiting coronary disease Elevated LVEDP consistent with diastolic dysfunction Ejection fraction 50% also consistent with diastolic dysfunction likely from hypertensive heart disease PLAN 1. Standard therapy for risk factor modification for ischemic heart disease 2. Treatment of diastolic dysfunction 3. Recommend sleep study 4. Weight loss exercise Electronically signed by : Amado Rodriguez MD 06/29/2022 09:49:08
== END 2022-06-29 12:37 | disposition home or self-care (01) ==
PROVIDERS: PCP Family Medicine; Visit Provider Internal Medicine
DX: R94.31 Abnormal electrocardiogram [ECG] [EKG] (principal); I25.118 Atherosclerotic heart disease of native coronary artery with other forms of angina pectoris; F17.210 Nicotine dependence, cigarettes, uncomplicated; M79.605 Pain in left leg; M79.604 Pain in right leg; M51.36 Other intervertebral disc degeneration, lumbar region; Z82.49 Family history of ischemic heart disease and other diseases of the circulatory system; F60.3 Borderline personality disorder; Z79.899 Other long term (current) drug therapy
CPT/HCPCS: 93458; 99152; C1725; C1760; C1769; J1644; Q9967

== ENCOUNTER 2022-12-27 11:47 | Day surgery (SDC) | payer MEDICAID, SELFPAY ==
[2022-12-20 13:36] VITALS: BMI 41.3
[2022-12-27] VITALS (8 sets, daily range): BP systolic 79–160; BP diastolic 38–83; PULSE 63–71; RESP 14–18; TEMP 36.4–36.8; O2SAT 91–98
--- NOTE | 2022-12-27 12:24 | EXP.ANES.CKL ---
[facility] Disclaimer: The information contained in this section may have been updated after the patient was seen, as this information can be updated by other users. Medical History Abnormal electrocardiogram [ECG] [EKG] Abnormal result of cardiovascular function study Angina, class II Anxiety and depression Borderline personality disorder CAD (coronary atherosclerotic disease) Chest pain Dizziness Elevated left ventricular end-diastolic pressure (LVEDP) Palpitations Typical angina Surgical History History of cholecystectomy History of hysterectomy Hx of gastric bypass Hx of tooth extraction Family History Other Family history of Alzheimer's disease Family history of allergies Family history of diabetes mellitus type II Family history of irritable bowel syndrome Family history of macular degeneration Family history of myocardial infarction Social History Smoking Status: Current every day smoker tobacco type: cigarettes packs per day: 1 pack-years: 25 second hand exposure: Yes alcohol intake: never substance use type: denies use current occupational status: unemployed Travel in the last 8 weeks: [place] the [place] household members: spouse housing: house marital status: education level: college service: No current occupational exposures/hazards: No caffeine: Yes do you feel safe at home: Yes victim of physical abuse: No victim of emotional abuse: No victim of sexual abuse: No would you like helpful sources: No [facility] Anesthesia Checklist Patient Identification Patient Identification: Arm Band and Verbal (Name & ) Structural Data Admitted From: Home Planned Operative Procedure/s: Colonoscopy Consent for Planned Operative Procedure(s) Verified: Yes NPO Status Verified Time NPO: 00:00 Additional verifications Patient : No Anesthesia Reactions: No Hx Blood Transfusions: No Blood Transfusion Reaction: No Airway Assessment C-Spine Mobility Assessed: Yes TMJ Mobility Assessed: Yes Dentition: Edentulous Neurological Assessment Level of Consciousness: Awake Hx Seizures: No Numbness or tingling in extremities: No Anesthesia Plan Anesthesia Risk discussed: Yes Anesthesia Plan: Verified ASA Class: III Anesthesia Type: MAC
--- NOTE | 2022-12-27 13:27 | HMH.SCOPE ---
Procedure: Date: 12/27/22 Patient Date of :: 1985 Procedure Performed:: Colonoscopy Indications:: The patient is a 37 year old who presents for colonoscopy evaluation of intermittent blood in stools and chronic constipation Performing Provider:: Ike Velasco MD Referring Provider:: Clive Love MD Sedation:: See RN records Procedure:: After placing the patient in the left lateral decubitus position, the colonoscopy was gently inserted into the rectum and under direct visualization advanced to the cecum which was identified by transillumination in the right lower quadrant, identification of the ileocecal valve, appendiceal orifice, and cecal strap. Color, texture, mucosa, and anatomy of the colon were carefully examined with the scope. Findings:: Anal canal: normal Rectum: hemorrhoids Sigmoid colon: fair preparation Descending colon: fair preparation Splenic flexure: normal Transverse colon: normal without polyps or inflammatory changes Hepatic flexure: normal Ascending colon: fair preparation Cecum: fair preparation Terminal ileum: not visualized Impression: Hemorrhoids Fair bowel preparation Recommendations:: Recommend to increase fiber intake. Can use metamucil or citrucel to achieve up to 25 gm of fiber daily Miralax once daily and encourage increase hydration with water Can use topical treatments of hemorrhoids as needed Complications:: None Estimated blood obtained (mL): 0 Colonoscopy Component Colonoscopy Component Was a colonoscopy performed during today's procedure?: Yes Recommended follow up colonoscopy of at least 10 years?: Yes
--- NOTE | 2022-12-27 14:06 | SUR.PHASEII ---
[facility] CMA aware of bp
== END 2022-12-27 14:35 | disposition home or self-care (01) ==
LOC: OUTP 11:48
PROVIDERS: PCP Family Medicine; Visit Provider Internal Medicine
PROC: 0DJD8ZZ Inspection of Lower Intestinal Tract, Via Natural or Artificial Opening Endoscopic (ICD-10-PCS; CPT 45378; principal; 2022-12-27 13:00)
DX: K64.8 Other hemorrhoids (principal); K92.1 Melena; K59.09 Other constipation
CPT/HCPCS: 45378; J2704

== ENCOUNTER 2023-10-15 18:25 | Outpatient (CLI) | payer MEDICAID, SELFPAY ==
[2023-10-15 18:25] LABS: Basophils # 0.1 K/mm3 (0-0.2); Basophils % 1.3 % (0.1-2.0); Eosinophils # 0.3 K/mm3 (0.0-0.4); Eosinophils % 4.2 % (0.1-12.0); Hematocrit 41.8 % (37.0-47.0); Hemoglobin 13.5 g/dL (12.2-16.2); Lymphocytes # 2.2 K/mm3 (0.7-4.5); Lymphocytes % 36.6 % (10-50); Mean Corpuscular HGB Conc 32.3 g/dL (31.8-35.4); Mean Corpuscular Hemoglobin 33.2 pg (27.0-31.2); Mean Corpuscular Volume 102.7 fl (81-99); Mean Platelet Volume 8.6 fl (7.4-10.4); Monocytes # 0.5 K/mm3 (0.1-1.0); Monocytes % 8.7 % (1.7-9.3); Neutrophils # 2.9 K/mm3 (1.8-7.8); Neutrophils % 49.1 % (37.0-80.0); Platelet Count 256 K/mm3 (142-424); Red Blood Count 4.07 M/mm3 (4.20-5.40); Red Cell Distribution Width 13.3 % (11.5-17.5)
[2023-10-15 18:55] LABS: Alanine Aminotransferase 21 U/L (12-78); Albumin Level 3.7 g/dl (3.5-5.0); Albumin/Globulin Ratio 1.4 (1.1-1.8); Alkaline Phosphatase 77 U/L (38-126); Anion Gap 6.4 mEq/L (5-15); Aspartate Amino Transferase 27 U/L (14-36); Bilirubin,Total 0.3 mg/dl (0.2-1.3); Blood Urea Nitrogen 9 mg/dl (7-17); Calcium 9.2 mg/dl (8.4-10.2); Carbon Dioxide 26 mmol/L (22.0-30.0); Chloride 112 mmol/L (98-107); Chol/HDL Ratio 3.8 (1-3.5); Cholesterol 212 mg/dl (140-200); Estimated Glomerular Filt Rate 111 ml/min (>60); GFR (African American) 134 ML/MIN (>60); Globulin 2.7 g/dL (1.3-3.2); Glucose 64 mg/dl (74-100); HDL Cholesterol 56 mg/dl (40-60); Potassium 3.4 mmoL/L (3.5-5.1); Sodium 141 mmol/L (136-145); Total Protein,Serum 6.4 g/dl (6.3-8.2); Triglycerides 162 mg/dl (30-150); VLDL Cholesterol 32 mg/dL (0-40)
[2023-10-15 19:11] LABS: T4 (Thyroxine) 8.7 ug/dl (5.53-11.0)
[2023-10-15 19:25] LABS: Thyroid Stimulating Hormone 6.78 uIU/mL (0.465-4.68)
[2023-10-15 19:28] LABS: Hemoglobin A1C 5.8 % (4.0-6.0)
== END 2023-10-15 23:59 ==
LOC: LAB.DROPOF 18:25
PROVIDERS: PCP Family Medicine; Visit Provider Family Medicine
DX: M79.674 Pain in right toe(s) (principal); S99.821A Other specified injuries of right foot, initial encounter; F17.210 Nicotine dependence, cigarettes, uncomplicated; Z79.899 Other long term (current) drug therapy
CPT/HCPCS: 80053; 80061; 83036; 84436; 84443; 85025

== ENCOUNTER 2023-10-31 18:00 | Outpatient (CLI) | payer MEDICAID, SELFPAY ==
[2023-10-31 18:04] LABS: Coronavirus 19, PCR Not Detected (NotDetected); Influenza A, PCR Not Detected (NotDetected); Influenza B, PCR Not Detected (NotDetected)
== END 2023-10-31 23:59 ==
LOC: LAB.DROPOF 11-01 09:29
PROVIDERS: PCP Nurse Practitioner; Visit Provider Nurse Practitioner
DX: J06.9 Acute upper respiratory infection, unspecified (principal); R06.02 Shortness of breath; R06.2 Wheezing; R05.8 Other specified cough
CPT/HCPCS: 87636

== ENCOUNTER 2024-03-07 10:33 | Outpatient (CLI) | payer MEDICAID, SELFPAY ==
[2024-03-07 18:34] LABS: Adenovirus F 40/41, stool Not Detected (NotDetected); Astrovirus Not Detected (NotDetected); Campylobacter Not Detected (NotDetected); Clostridium Difficile A/B, PCR Not Detected (NotDetected); Cryptosporidium Not Detected (NotDetected); Cyclospora Cayetanesis Not Detected (NotDetected); Entamoeba histolytica Not Detected (NotDetected); Enteroaggregative E coli Not Detected (NotDetected); Enteropathogenic E coli Not Detected (NotDetected); Enterotoxigenic E coli Not Detected (NotDetected); Giardia lamblia Not Detected (NotDetected); Norovirus Not Detected (NotDetected); Plesimonas Shigalloides, PCR Not Detected (NotDetected); Rotavirus A Not Detected (NotDetected); Salmonella, PCR Not Detected (NotDetected); Sapovirus Not Detected (NotDetected); Shiga-like toxin E coli Not Detected (NotDetected); Shigella Enterovasive E coli Not Detected (NotDetected); Vibrio Cholerae Not Detected (NotDetected); Vibrio, PCR Not Detected (NotDetected); Yersinia Entercolitica, PCR Not Detected (NotDetected)
== END 2024-03-07 23:59 | disposition home or self-care (01) ==
LOC: LAB.DROPOF 03-10 10:33
PROVIDERS: PCP Nurse Practitioner Family; Visit Provider Nurse Practitioner Family
DX: R19.7 Diarrhea, unspecified (principal)
CPT/HCPCS: 87507

== ENCOUNTER 2024-03-24 07:19 | Outpatient (CLI) | payer MEDICAID, SELFPAY ==
--- NOTE | 2024-03-24 07:30 | MR_ITS ---
FINAL REPORT TECHNIQUE: Multiplanar MR imaging of the thoracic spine was performed without and with contrast. CLINICAL HISTORY: [facility]. mid back pain. symptoms xyrs FINDINGS: The thyroid is enlarged and heterogeneous which represent goiter. On the sagittal T2-weighted images, disc degeneration is seen at multiple levels. There is no evidence of fracture. The vertebral alignment is normal. No bony mass is identified. There is abnormal signal within the mid thoracic spinal canal on some sequences favored represent pulsation artifact. This is not seen on other sequences. The thoracic spinal cord has an unremarkable appearance without evidence of mass, edema or syrinx. There is no evidence of significant canal stenosis. On the axial images, annular bulges are seen at multiple levels. Multiple vertebral osteophytes are present. There is no evidence of disc protrusion. No significant canal stenosis is identified. On the postcontrast images, no abnormal contrast enhancement is identified. IMPRESSION: Multilevel degenerative disc disease as described. No abnormal contrast enhancement identified. Reviewed, Interpreted and Dictated by Richard Estes III, MD Transcribed by Katty Abrams Authenticated and [facility]
[2024-03-24 07:53] LABS: Blood Urea Nitrogen 5 mg/dl (7-17); Estimated Glomerular Filt Rate 93 ml/min (>60); GFR (African American) 112 ML/MIN (>60)
[2024-03-24 08:10] LABS: Albumin Level 3.6 g/dl (3.5-5.0); Chloride 109 mmol/L (98-107); Sodium 138 mmol/L (136-145)
[2024-03-24 08:11] LABS: Potassium 3.6 mmoL/L (3.5-5.1)
[2024-03-24 08:13] LABS: Alanine Aminotransferase 20 U/L (12-78); Albumin/Globulin Ratio 1.2 (1.1-1.8); Alkaline Phosphatase 68 U/L (38-126); Anion Gap 5.6 mEq/L (5-15); Aspartate Amino Transferase 21 U/L (14-36); Bilirubin,Total 0.7 mg/dl (0.2-1.3); Blood Urea Nitrogen 5 mg/dl (7-17); Calcium 8.9 mg/dl (8.4-10.2); Carbon Dioxide 27 mmol/L (22.0-30.0); Estimated Glomerular Filt Rate 93 ml/min (>60); GFR (African American) 112 ML/MIN (>60); Globulin 2.9 g/dL (1.3-3.2); Glucose 124 mg/dl (74-100); Total Protein,Serum 6.5 g/dl (6.3-8.2)
[2024-03-24 08:44] LABS: Thyroid Stimulating Hormone 8.42 uIU/mL (0.465-4.68)
[2024-03-24 08:51] LABS: Free T4 (Free Thyroxine) 1.07 ng/dl (0.78-2.19)
[2024-03-24] MEDS: GADOTERIDOL INJ 10ML SYRINGE 8 ML IV (08:52)
[2024-03-24] MEDS: GADOTERIDOL INJ 20ML SYRINGE 20 ML IV (08:53)
[2024-03-24] MEDS: SODIUM CHLORIDE 0.9% 10ML SYR (RAD ONLY) 10 ML IV (08:53)
[2024-03-25 12:12] LABS: Lithium (Eskalith(R)) 1.1 mmol/L (0.5-1.2)
== END 2024-03-24 23:59 | disposition home or self-care (01) ==
LOC: RAD 07:19
PROVIDERS: Nurse Practitioner Acute Care; PCP Family Medicine; Visit Provider Family Medicine
DX: M51.9 Unspecified thoracic, thoracolumbar and lumbosacral intervertebral disc disorder; F33.1 Major depressive disorder, recurrent, moderate; F41.1 Generalized anxiety disorder; F43.10 Post-traumatic stress disorder, unspecified
CPT/HCPCS: 36415; 72157; 80053; 80178; 82565; 84439; 84443; 84520; A9576

== ENCOUNTER 2024-03-24 09:22 | Emergency (ER) | payer MEDICAID, SELFPAY ==
[2024-03-24 09:23] VITALS: BP 110/51; PULSE 79; RESP 13; TEMP 36.6; O2SAT 98; BMI 43.2
--- NOTE | 2024-03-24 09:44 | PC.NURSE ---
Dr. Cody at bedside for eval
--- NOTE | 2024-03-24 09:51 | ED_ITS ---
Discharge Plan Disposition Patient Disposition: Home, Self-Care Prescriptions Prescriptions: New sulfamethoxazole-trimethoprim [Bactrim DS] 800-160 mg tablet 1 tab PO BID 10 Days Qty: 20 0RF No Action Nurtec ODT 75 mg tablet,disintegrating 75 mg PO Q OTHER DAY PRN (Reason: migraine headache) Qty: 10 0RF doxycycline monohydrate 150 mg capsule 150 mg PO BID Qty: 20 1RF alprazolam 2 mg tablet 2 mg PO ONCE Qty: 1 0RF Rx Instructions: take 1-2 hours before mri scan Wegovy 0.25 mg/0.5 mL pen injector 0.25 mg SQ WEEKLY Qty: 2 1RF Rx Instructions: administer weeks 1 through 4 of therapy doxycycline hyclate 100 mg capsule 100 mg PO BID Qty: 20 0RF albuterol sulfate 90 mcg/actuation HFA aerosol inhaler 2 puff inhalation QID PRN (Reason: shortness of breath or wheezing) Qty: 8.5 5RF fluticasone propionate 50 mcg/actuation spray,suspension 2 spray intranasal DAILY hydrocodone-acetaminophen 5-300 mg tablet 1 tab PO TID PRN tizanidine 4 mg tablet 4 mg PO Q8H PRN (Reason: muscle spasticity) Qty: 90 3RF lithium carbonate 300 mg capsule 300 mg PO QAM naloxone 4 mg/actuation spray,non-aerosol intranasal lithium carbonate 450 mg tablet extended release 900 mg PO DAILY Qty: 60 2RF mirtazapine [Remeron] 30 mg tablet 45 mg PO HS Qty: 45 2RF Trintellix 10 mg tablet 10 mg PO DAILY Qty: 30 2RF aspirin [Adult Low Dose Aspirin] 81 mg tablet,delayed release (DR/EC) 81 mg PO DAILY Qty: 30 5RF levothyroxine [Synthroid] 50 mcg tablet 50 mcg PO DAILY Qty: 90 3RF ketoconazole 2 % cream 1 applic topical BID Qty: 60 5RF clonidine HCl 0.1 mg tablet extended release 12 hr 0.1 mg PO BID Qty: 60 2RF furosemide 20 mg tablet 20 mg PO DAILY Qty: 30 2RF metoprolol succinate 25 mg tablet extended release 24 hr See Rx Instructions .ROUTE .COMPLEX Qty: 30 0RF Dose Instruction: TAKE 1 TABLET BY MOUTH DAILY Rx Instructions: TAKE 1 TABLET BY MOUTH DAILY sulfamethoxazole-trimethoprim [Bactrim DS] 800-160 mg tablet 1 tab PO BID Qty: 20 0RF lurasidone [Latuda] 80 mg tablet 80 mg PO DAILY Qty: 30 2RF Rx Instructions: must administer with food (at least 350 calories) prenat.vits,keaton,[id number]-[id number] Tablet 1 tab PO DAILY albuterol sulfate 2.5 mg /3 mL (0.083 %) solution for nebulization 2.5 mg IH Q6H Referrals Follow up/Referrals: Ryan Love MD [Primary Care Provider] - See instructions Activity Restrictions/Add. Instructions Additional Instructions/Restrictions: As discussed please floss the vessel loop 1-2 times a day until there is no longer blood or pus coming from it at which point you can cut it out. You should notice significant improvement in her symptoms over the next 48 to 72 hours return with any spreading redness high fevers feeling sick or other concerns. Please take your entire course of antibiotics. Clinical Impressions Clinical Impression: Cellulitis of buttock, left, Abscess of buttock, left Instructions Patient Instructions: DI for Skin Abscess Print Language Print Language: Korean Discharge ED Provider: Swetha Cody General Adult HPI General Chief complaint: Skin/Abscess/Foreign Body Stated complaint: infection on L buttox Time Seen by Provider: 03/24/24 09:43 Mode of Arrival: Ambulatory Source of Information: Patient Limitations: No Limitations Description of Symptoms (Recalled from ER Triage Doc. by RN): pt presents to Ed with c/o bump on her left buttcheck. pt reprots no drainage, tenderness at site. symptoms began sunday History of Present Illness HPI narrative: Patient is a 38-year-old female presenting today with a bump on her left buttock. This has been worsening over the last week no fevers or chills or other systemic symptoms. She does have a history of MRSA. Other than Avelox no other antibiotic allergies. Related Data Home Medications ?Medication ?Instructions ?Recorded ?Confirmed prenat.vits,keaton,dso-gcdv-nibjq 1 tab PO DAILY Supplement 06/29/22 03/14/24 albuterol sulfate 2.5 mg/3 mL 2.5 mg inhalation Q6H Breathing 12/20/22 03/14/24 (0.083 %) solution for nebulization problems fluticasone propionate 50 2 spray intranasal DAILY 01/14/24 03/14/24 mcg/actuation nasal spray,suspension lithium carbonate 300 mg capsule 300 mg PO QAM 02/19/24 03/14/24 naloxone 4 mg/actuation nasal spray intranasal 02/19/24 03/14/24 hydrocodone 5 mg-acetaminophen 300 1 tab PO TID PRN 03/14/24 03/14/24 mg tablet Previous Rx's ?Medication ?Instructions ?Recorded aspirin 81 mg tablet,delayed 81 mg PO DAILY #30 tabs 08/14/23 release (Adult Low Dose Aspirin) levothyroxine 50 mcg tablet 50 mcg PO DAILY #90 tabs 10/19/23 (Synthroid) ketoconazole 2 % topical cream 1 applic topical BID #60 grams 11/15/23 clonidine HCl 0.1 mg 0.1 mg PO BID #60 tabs 12/31/23 tablet,extended release,12 hr albuterol sulfate 90 mcg/actuation 2 puff inhalation QID PRN 01/14/24 aerosol inhaler shortness of breath or wheezing #8.5 grams rimegepant 75 mg disintegrating 75 mg PO Q OTHER DAY PRN migraine 01/23/24 tablet (Nurtec ODT) headache #10 tabs furosemide 20 mg tablet 20 mg PO DAILY #30 tabs 01/28/24 tizanidine 4 mg tablet 4 mg PO Q8H PRN muscle spasticity 02/05/24 #90 tabs metoprolol succinate 25 mg See Rx Instructions .Route 02/11/24 tablet,extended release 24 hr .COMPLEX #30 tabs lithium carbonate 450 mg 900 mg (2 x 450 mg) PO DAILY #60 02/20/24 tablet,extended release tabs mirtazapine 30 mg tablet (Remeron) 45 mg (1.5 x 30 mg) PO HS #45 tabs 02/20/24 sulfamethoxazole 800 1 tab PO BID #20 tabs 02/20/24 mg-trimethoprim 160 mg tablet (Bactrim DS) vortioxetine 10 mg tablet 10 mg PO DAILY #30 tabs 02/20/24 (Trintellix) lurasidone 80 mg tablet (Latuda) 80 mg PO DAILY #30 tabs 03/02/24 alprazolam 2 mg tablet 2 mg PO ONCE #1 tab 03/14/24 doxycycline hyclate 100 mg capsule 100 mg PO BID #20 caps 03/14/24 doxycycline monohydrate 150 mg 150 mg PO BID #20 caps 03/14/24 capsule semaglutide (weight loss) 0.25 0.25 mg (0.5 mL) SQ WEEKLY #2 mL 03/14/24 mg/0.5 mL subcutaneous pen injector (Wegovy) sulfamethoxazole 800 1 tab PO BID 10 days #20 tabs 03/24/24 mg-trimethoprim 160 mg tablet (Bactrim DS) Allergies Allergy/AdvReac Type Severity Reaction Status Date / Time moxifloxacin [From Avelox] AdvReac Unknown Verified 03/14/24 13:06 allergy reaction [facility] Disclaimer: The information contained in this section may have been updated after the patient was seen, as this information can be updated by other users. Medical History Hx MRSA infection Abscess of abdominal wall COPD exacerbation CAD (coronary atherosclerotic disease) Elevated left ventricular end-diastolic pressure (LVEDP) Chest pain Abnormal result of cardiovascular function study Typical angina Abnormal electrocardiogram [ECG] [EKG] Angina, class II Palpitations Anxiety and depression Borderline personality disorder Dizziness Surgical History Hx of tooth extraction all teeth Hx of gastric bypass History of cholecystectomy History of hysterectomy Family History Other Family history of Alzheimer's disease Family history of allergies Family history of diabetes mellitus type II Family history of irritable bowel syndrome Family history of macular degeneration Family history of myocardial infarction Social History Smoking Status: Current every day smoker tobacco type: cigarettes packs per day: 1 second hand exposure: Yes alcohol intake: never substance use type: denies use current occupational status: unemployed Travel in the last 8 weeks: [place] the [place] household members: spouse housing: house marital status: education level: college service: No current occupational exposures/hazards: No caffeine: Yes do you feel safe at home: Yes victim of physical abuse: No victim of emotional abuse: No victim of sexual abuse: No would you like helpful sources: No ROS Obtained: Yes All systems reviewed & no additional complaints except as documented Physical Exam General General appearance: alert Respiratory Respiratory exam: Present normal lung sounds bilaterally Cardiovascular Cardiovascular exam: Present regular rate Rectal Exam Rectal exam: Present other (Left buttock there is a 5 x 5 cm of erythema with central induration) Neurological Exam Neurological exam: Present alert and oriented X3 Medical Decision Making Maciej Inquiry Pt receiving controlled substance: No Vital Signs: 03/24/24 09:23 Temperature 97.9 F Temperature Source Oral Pulse Rate [Left Radial] 79 Respiratory Rate 13 Blood Pressure [Right Arm] 110/51 L Blood Pressure Mean [Right Arm] 70 02 Sat by Pulse Oximetry 98 Oxygen Delivery Method Room Air Orders (Tests/Meds): ORDERS Category Date Time Status POCUS Point of Care (ER Only) Stat Exams 03/24/24 09:45 Ordered Wound Culture and Gram Stain Stat Micro 03/24/24 10:44 Ordered Medical Decision Narrative: Systemically well 38-year-old female presents today with left buttock cellulitis versus cellulitis with abscess will perform a bedside ultrasound to dictate whether or not there is an incision and drainage that is needed. Limited bedside ultrasound was consistent with a localize drainable fluid collection we performed an incision and drainage which was successfully performed. Patient was given Bactrim with presumed MRSA coverage this was cultured given its location return precautions emphasized patient was discharged in stable condition. Procedures Abscess I/D Site: other (Left buttock) Side (if applicable): left Local Anesthetic: lidocaine 1% and with epi Amount of anesthesia used (mL): 10 Technique: incised with #11 blade Amount of fluid expressed (mL): 5 Packing used?: plain (Vessel loop) Miscellaneous Procedure Procedure Performed: Limited soft tissue ultrasound Indication: Soft tissue redness and swelling Identified structures: Location: Left buttock Findings: There is a well-circumscribed 1 x 1 x 1 cm area of hypoechoic/debris consistent with abscess with surrounding cobblestoning and cellulitis clinically Impression: Left buttock cellulitis with localized drainable fluid collection consistent with abscess Images were saved to permanent archive The study was technically adequate Soft Tissue CPT Codes: CPT Neck: 16225-66 CPT Upper extremity: 22748-95 CPT Axilla: 01286-02 CPT Chest wall: 80637-57 CPT Breast: 50360-90-KI/LT (complete), 14783-54-KO/LT (limited), CPT Upper Back: 46470-92 CPT Lower Back: 09999-74 CPT Abdominal Wall: 23311-82 CPT Pelvic Wall: 76054-12 CPT Lower Extremity: 46935-84 CPT Other Soft Tissue: 85934-23 This study was performed by me, and I personally interpreted all images/videos. Based on my clinical judgement, these images were adequate and did not necessitate further imaging. Critical Care Critical Care Time Critical Care Time: No
--- NOTE | 2024-03-24 10:47 | PC.NURSE ---
Dr. Cody and PA student Grace collected wound culture from R buttock abscess. This was labeled by myself and submitted to the lab. Dr. Cody entered order for culture, however it was noted that the order showed right breast instead of right buttock. I called lab and s/w medical laboratory technician who stated she can adjust the site collection.
[2024-03-24 10:50] VITALS: BP 129/76; PULSE 74; RESP 13; TEMP 36.6
--- NOTE | 2024-03-26 11:09 | PC.NURSE ---
discussed wound culture with , pt dc with bactrim, ntd
--- NOTE | 2024-03-29 08:44 | PC.NURSE ---
wound culture final discussed with , pt dc with bactrim, ntd
== END 2024-03-24 10:52 | disposition home or self-care (01) ==
PROVIDERS: Emergency Provider Student in an Organized Health Care Education/Training Program; PCP Family Medicine
DX: L02.31 Cutaneous abscess of buttock (principal); B95.7 Other staphylococcus as the cause of diseases classified elsewhere; L03.317 Cellulitis of buttock
CPT/HCPCS: 10060; 87070; 87077; 87186; 87205; 99284

== ENCOUNTER 2024-04-02 14:44 | Outpatient (CLI) | payer MEDICAID, SELFPAY | END 2024-04-02 23:59 | disposition home or self-care (01) | LOC: RT 14:45 | PROVIDERS: PCP Family Medicine; Visit Provider Nurse Practitioner Family | DX: R06.02 Shortness of breath (principal); F17.210 Nicotine dependence, cigarettes, uncomplicated | CPT/HCPCS: 94060; 94618; 94726; 94729 ==

== ENCOUNTER 2024-04-21 11:40 | Outpatient (CLI) | payer MEDICAID, SELFPAY ==
[2024-04-21 20:49] LABS: Alanine Aminotransferase 23 U/L (12-78); Albumin Level 3.5 g/dl (3.5-5.0); Albumin/Globulin Ratio 1.2 (1.1-1.8); Alkaline Phosphatase 65 U/L (38-126); Anion Gap 4.7 mEq/L (5-15); Aspartate Amino Transferase 27 U/L (14-36); Bilirubin,Total 0.8 mg/dl (0.2-1.3); Blood Urea Nitrogen 7 mg/dl (7-17); Calcium 9.1 mg/dl (8.4-10.2); Carbon Dioxide 28 mmol/L (22.0-30.0); Chloride 106 mmol/L (98-107); Estimated Glomerular Filt Rate 79 ml/min (>60); GFR (African American) 96 ML/MIN (>60); Globulin 2.9 g/dL (1.3-3.2); Glucose 126 mg/dl (74-100); Potassium 3.7 mmoL/L (3.5-5.1); Sodium 135 mmol/L (136-145); Total Protein,Serum 6.4 g/dl (6.3-8.2)
[2024-04-21 21:01] LABS: Free T4 (Free Thyroxine) 0.97 ng/dl (0.78-2.19)
[2024-04-21 21:18] LABS: Thyroid Stimulating Hormone 2.43 uIU/mL (0.465-4.68)
[2024-04-23 14:47] LABS: Lithium (Eskalith(R)) 0.8 mmol/L (0.5-1.2)
== END 2024-04-21 23:59 | disposition home or self-care (01) ==
LOC: LAB.DROPOF 04-22 10:03
PROVIDERS: PCP Nurse Practitioner Acute Care; Visit Provider Nurse Practitioner Acute Care
DX: F41.9 Anxiety disorder, unspecified (principal); F32.A Depression, unspecified; Z79.899 Other long term (current) drug therapy; E03.9 Hypothyroidism, unspecified
CPT/HCPCS: 80053; 80178; 84439; 84443

== ENCOUNTER 2024-04-22 11:38 | Outpatient (CLI) | payer MEDICAID, SELFPAY ==
[2024-04-22 13:38] LABS: Chol/HDL Ratio 5.6 (1-3.5); Cholesterol 224 mg/dl (140-200); HDL Cholesterol 40 mg/dl (40-60); Triglycerides 249 mg/dl (30-150); VLDL Cholesterol 50 mg/dL (0-40)
== END 2024-04-22 23:59 | disposition home or self-care (01) ==
LOC: LAB 11:39
PROVIDERS: PCP Family Medicine; Visit Provider Nurse Practitioner
DX: E78.5 Hyperlipidemia, unspecified (principal); I25.10 Atherosclerotic heart disease of native coronary artery without angina pectoris; F17.210 Nicotine dependence, cigarettes, uncomplicated
CPT/HCPCS: 36415; 80061

== ENCOUNTER 2024-05-01 08:37 | Outpatient (CLI) | payer MEDICAID, SELFPAY ==
--- NOTE | 2024-05-01 08:40 | CA_ITS ---
APPROVED REPORT EXAM: Comprehensive 2D, Doppler, and color-flow Echocardiogram Beverage Sales Consultant: Nano Torres RT(R) Ht: 5 ft 11 in Wt: 312lbs BSA: 2.55 BP: 141/73 mmHg Indications: edema, DD. LVEDP, abn EKG, CAD, hx gastric bypass 2D Dimensions LVEF ([facility]) 65.00 % F: 54 - 74 LV Volume 102.80 mL F: 46 - 106 LV Volume Index 40.3 mL/m2 F: 29 - 61 LA Volume 42.00 mL LA Volume Index 16.47 mL/m2 (M/F) 16-34 EF AP4 69.10 % EF AP2 59.5 % EF BP 65.0 % GL Strain -14.9 % M-Mode Dimensions RVDd 2.25 cm (0.9-2.6) LA Diam 3.07 cm (1.9-4.0) LVDd 5.39 cm (3.5-5.7) LVDs 3.78 cm (3.5-5.7) IVSd 0.93 cm (0.6-1.1) PWd 0.93 cm (0.6-1.1) EF (Teich) 56.50% FS 29.90% EDV (Teich) 140.70 mL ESV (Teich) 61.20 mL LV Diastology E Decel Time 223 (160-240 msec) E/A Ratio 1.1 Mitral Valve MV E Max Gadiel. 63.0 (40-130 cm/s) MV A Velocity 59.0 (40-130 cm/s) E/A Ratio 1.06 MV PHT 65.0 ms Left Ventricle The left ventricle is normal size. The left ventricular systolic function is normal. The left ventricular ejection fraction is within the normal range. There is increased LV wall thickness. There is normal LV segmental wall motion. The left ventricular diastolic function is normal. LVEF is 55%. Right Ventricle Right ventricle is mildly dilated. The right ventricular systolic function is normal. Atria The left atrium size is normal. The right atrium size is normal. There is no Doppler evidence of interatrial shunt. Aortic Valve The aortic valve opens well. There is no aortic valvular stenosis. No aortic regurgitation is present. Mitral Valve The mitral valve is normal in structure. No evidence of mitral valve stenosis. Trace mitral regurgitation. Tricuspid Valve The tricuspid valve leaflets are thin and pliable. Trace tricuspid regurgitation. There is insufficient TR jet to estimate RVSP. Pulmonic Valve The pulmonary valve is normal in structure. Trace pulmonic regurgitation. Great Vessels The aortic root is normal in size. The ascending aorta is normal in size. IVC is normal in size and collapses >50% with inspiration. Pericardium There is no pericardial effusion. Other Information Study Quality: Fair Conclusion Normal biventricular systolic function. Mild RV dilation. No significant valvular stenosis or regurgitation. Electronically signed by : Lesli Redmond MD 05/06/2024 11:36:12
== END 2024-05-01 23:59 | disposition home or self-care (01) ==
LOC: RT 08:38
PROVIDERS: PCP Family Medicine; Visit Provider Nurse Practitioner
DX: I51.89 Other ill-defined heart diseases (principal); R60.9 Edema, unspecified; R94.30 Abnormal result of cardiovascular function study, unspecified
CPT/HCPCS: 93306

== ENCOUNTER 2024-05-20 09:08 | Outpatient (CLI) | payer MEDICAID, SELFPAY ==
[2024-05-20 10:43] LABS: Anion Gap 10.3 mEq/L (5-15); Blood Urea Nitrogen 7 mg/dl (7-17); Calcium 9.5 mg/dl (8.4-10.2); Carbon Dioxide 27 mmol/L (22.0-30.0); Chloride 107 mmol/L (98-107); Estimated Glomerular Filt Rate 93 ml/min (>60); GFR (African American) 112 ML/MIN (>60); Glucose 124 mg/dl (74-100); Potassium 3.3 mmoL/L (3.5-5.1); Sodium 141 mmol/L (136-145)
== END 2024-05-20 23:59 | disposition home or self-care (01) ==
LOC: LAB 09:09
PROVIDERS: PCP Family Medicine; Visit Provider Nurse Practitioner
DX: E78.5 Hyperlipidemia, unspecified (principal); I25.10 Atherosclerotic heart disease of native coronary artery without angina pectoris; Z72.0 Tobacco use
CPT/HCPCS: 36415; 80048

== ENCOUNTER 2024-09-03 11:17 | Outpatient (CLI) | payer MEDICAID, SELFPAY ==
--- NOTE | 2024-09-03 | CA_ITS ---
APPROVED REPORT Exam: Pharmacologic Technologist: Teena Carlson Ht: 5 ft 11 in Wt: 311 lbs BSA: 2.54 m2 HR: 61 bpm BP: 112/60 mmHg Stress Test Details Test: Lexiscan HR Resting HR: 61 bpm Max Heart Rate (APMHR): 179.066427 bpm Max HR Achieved: 91 bpm Target HR (85% APMHR): 152.143020 bpm % of APMHR: 50.84 Recovery HR: 75 bpm BP Resting BP: 112.0/60.0 mmHg Max BP: 116.0/60.0 mmHg Recovery BP: 112.0/63.0 mmHg ECG Resting ECG: Sinus rhythm, incomplete right bundle branch block Stress ECG Conclusion Symptoms: Mild shortness of air and chest pain Arrhythmias/Ectopy: None ST-T Changes: None Lexiscan Electronically signed by : Lesli Redmond MD 09/04/2024 12:50:14
--- NOTE | 2024-09-03 11:18 | NM_ITS ---
APPROVED REPORT Exam: Nuclear Stress Test Indication: hyperlipidemia, tob use, fm hx., c.p., sob, fatigue Patient Location: Outpatient Stress Tech: Teena Carlson [place] Tech:ADY Hamilton RT (R)(N)(M) Ht: 5 ft 11 in Wt: 311 lbs Bra Size: d HR: 61 bpm BP: 112/60 mmHg BSA: 2.54 m2 TID: 1.17 BMI: 43.3 History: hyperlipidemia, tob use, fm hx., c.p., sob, fatigue Procedure: Patient received 0.4 mg of intravenous Lexiscan, resting heart rate 61 bpm, resting blood pressure 112/60 mmHg, with Lexiscan maximum heart rate achieved was 91 bpm which is % of the maximum predicted heart rate and blood pressure was 116/60 mmHg. With Lexiscan, patient denied any complaint of chest pain. Cardiac Stress and Resting SPECT Images: Cardiac Stress and Resting SPECT images were obtained using technetium 99m Myoview 32.3 mCi stress and 10.44 mCi at rest. Raw images demonstrate significant soft tissue diaphragmatic overlap with the cardiac borders. This may affect the diagnostic interpretation of the study findings. Resting and stress imaging in supine and prone positions demonstrate a medium sized, mild, partially reversible perfusion defect in the basal to mid anterior LV wall. Gated imaging demonstrates mild reduction global LV systolic function. LVEF is calculated at 46%. Conclusion: Technically difficult study. Diaphragmatic attenuation is present. Medium sized, mild, partially reversible perfusion defect in the basal to mid anterior LV wall. Findings are suggestive of partial reversible ischemia. Gated imaging demonstrates mild reduction global LV systolic function. LVEF is calculated at 46%. Electronically signed by : Lesli Redmond MD 09/04/2024 12:44:23
[2024-09-03] MEDS: SODIUM CHLORIDE 0.9% 10ML SYR (RAD ONLY) 10 ML IV ×2 (11:30→13:00)
[2024-09-03] MEDS: REGADENOSON 0.4MG/5ML SYRINGE 0.4 MG IV (13:00)
[2024-09-03] MEDS: ISOTOPE MYOVIEW (PER STUDY) 1 DOSE IV (14:01)
== END 2024-09-03 23:59 | disposition home or self-care (01) ==
LOC: RAD 11:18
PROVIDERS: PCP Family Medicine; Visit Provider Nurse Practitioner
DX: I25.10 Atherosclerotic heart disease of native coronary artery without angina pectoris (principal); R07.89 Other chest pain
CPT/HCPCS: 78452; 93017; 93018; A9502; J2785

== ENCOUNTER → 2024-09-23 13:34 | Outpatient (CLI) | payer MEDICAID, SELFPAY | LOC: SL 13:36 | PROVIDERS: PCP Nurse Practitioner; Visit Provider Nurse Practitioner | DX: R53.83 Other fatigue (principal); G47.36 Sleep related hypoventilation in conditions classified elsewhere; R06.83 Snoring; Z72.820 Sleep deprivation | CPT/HCPCS: G0399 ==

== ENCOUNTER 2024-10-06 11:05 | Day surgery (SDC) | payer OTHER, SELFPAY ==
[2024-10-06] VITALS (8 sets, daily range): BP systolic 116–138; BP diastolic 60–75; PULSE 65–84; RESP 18–20; O2SAT 97–99; BMI 43.9
--- NOTE | 2024-10-06 07:16 | IR_ITS ---
APPROVED REPORT Patient Location: Outpatient PROCEDURES Left heart catheterization Left ventriculogram Selective coronary angiogram INDICATION Abnormal Myoview, Angina pectoris Informed consent was obtained prior to the procedure. COMPLICATIONS NONE Estimated Blood Loss: LESS THAN 10 ML TECHNIQUE One percent lidocaine used to anesthetize the right anterior aspect of the wrist. The right radial artery was accessed via the Seldinger technique. A 6 Yoruba sheath was placed in the right radial artery. 2.5 mg of Verapamil, 800 mcg of nitroglycerin, 1mg Lidocaine and 5000 U Heparin were given through the arterial sheath. The papa catheter was also used to perform left heart catheterization, left ventriculogram and selective coronary angiogram. At the end of the procedure the sheath was removed good hemostasis was achieved using Traclet band, patient was transferred to the postop holding area in stable condition. ANGIOGRAPHIC RESULTS The left main artery Normal The left anterior descending artery Normal The circumflex artery Normal The right coronary artery Dominant normal The BLANTON ventriculogram reveals Normal 60% The left ventricular end-diastolic pressure 10 to 15 mmHg IMPRESSION Normal coronary arteries Normal ejection fraction Normal LVEDP PLAN 1. Evaluation of noncardiac symptoms Electronically signed by : Amado Rodriguez MD 10/06/2024 13:17:09
[2024-10-06 11:21] LABS: Basophils # 0.1 K/mm3 (0-0.2); Basophils % 0.6 % (0.1-2.0); Eosinophils # 0.5 K/mm3 (0.0-0.4); Eosinophils % 6.2 % (0.1-12.0); Hematocrit 41.3 % (37.0-47.0); Hemoglobin 13.7 g/dL (12.2-16.2); Lymphocytes # 2.7 K/mm3 (0.7-4.5); Lymphocytes % 34.3 % (10-50); Mean Corpuscular HGB Conc 33.2 g/dL (31.8-35.4); Mean Corpuscular Hemoglobin 33.3 pg (27.0-31.2); Mean Corpuscular Volume 100.2 fl (81-99); Mean Platelet Volume 8.7 fl (7.4-10.4); Monocytes # 0.6 K/mm3 (0.1-1.0); Monocytes % 7.6 % (1.7-9.3); Platelet Count 203 K/mm3 (142-424); Red Blood Count 4.12 M/mm3 (4.20-5.40); Red Cell Distribution Width 12.1 % (11.5-17.5); White Blood Count 7.9 K/mm3 (4.8-10.8)
[2024-10-06 11:29] LABS: Chloride 106 mmol/L (98-107)
[2024-10-06 11:30] LABS: Potassium 4.3 mmoL/L (3.5-5.1); Sodium 135 mmol/L (136-145)
[2024-10-06 11:32] LABS: Anion Gap 3.3 mEq/L (5-15); Blood Urea Nitrogen 9 mg/dl (7-17); Carbon Dioxide 30 mmol/L (22.0-30.0); Creatinine Clearance Estimated 118 mL/min (50-200); Estimated Glomerular Filt Rate 92 ml/min (>60); GFR (African American) 112 ML/MIN (>60)
[2024-10-06 11:33] LABS: Calcium 9.2 mg/dl (8.4-10.2); Glucose 130 mg/dl (74-100)
[2024-10-06 11:38] LABS: HCG Qualitative, Serum Negative (Negative)
[2024-10-06] MEDS: HEPARIN 1,000 UNITS/ML 10ML VIAL (CATH LAB) 10000 UNIT IV (12:45)
[2024-10-06] MEDS: diphenhydrAMINE 50MG/ML VIAL 50 MG IV (12:45)
[2024-10-06] MEDS: HEPARIN 1,000 UNITS/500ML NS (CATH LAB) 3000 UNIT IV (12:45)
[2024-10-06] MEDS: 0.9 % SODIUM CHLORIDE 500 ML 25 ML IV (12:45)
[2024-10-06] MEDS: LIDOCAINE 1% 10ML MDV 20 ML IJ (12:45)
[2024-10-06] MEDS: VERAPAMIL 2.5MG/ML 2ML VIAL 2.5 MG IV (12:46)
[2024-10-06] MEDS: NITROGLYCERIN 800MCG/8ML SYR (CATH LAB) 800 MCG IA (12:52)
[2024-10-06] MEDS: FENTANYL 100MCG/2ML VIAL 50 MCG IV (12:54)
[2024-10-06] MEDS: MIDAZOLAM HCL 1MG/ML 5ML VIAL 1 MG IV (12:55)
[2024-10-06] MEDS: IOPAMIDOL-370 (76%);100ML BOTTLE 50 ML IV (15:08)
== END 2024-10-06 15:17 | disposition home or self-care (01) ==
PROVIDERS: PCP Family Medicine; Visit Provider Internal Medicine
DX: I25.118 Atherosclerotic heart disease of native coronary artery with other forms of angina pectoris (principal); R53.83 Other fatigue; R06.02 Shortness of breath; R93.1 Abnormal findings on diagnostic imaging of heart and coronary circulation; J44.9 Chronic obstructive pulmonary disease, unspecified; E78.5 Hyperlipidemia, unspecified; Z79.899 Other long term (current) drug therapy; F17.210 Nicotine dependence, cigarettes, uncomplicated; R94.31 Abnormal electrocardiogram [ECG] [EKG]; E66.01 Morbid (severe) obesity due to excess calories; Z68.41 Body mass index [BMI] 40.0-44.9, adult; Z98.84 Bariatric surgery status; Z82.49 Family history of ischemic heart disease and other diseases of the circulatory system; Z79.82 Long term (current) use of aspirin; Z79.51 Long term (current) use of inhaled steroids
CPT/HCPCS: 36415; 80048; 84703; 85025; 93458; 99152; C1725; C1769; J1200; J1644; J3010; Q9967

== ENCOUNTER 2024-10-17 13:55 | Outpatient (CLI) | payer OTHER, SELFPAY ==
[2024-10-17 17:17] LABS: Basophils # 0.1 K/mm3 (0-0.2); Basophils % 0.8 % (0.1-2.0); Eosinophils # 0.4 K/mm3 (0.0-0.4); Eosinophils % 4.2 % (0.1-12.0); Hematocrit 44.1 % (37.0-47.0); Hemoglobin 14.9 g/dL (12.2-16.2); Lymphocytes # 2.3 K/mm3 (0.7-4.5); Lymphocytes % 24.8 % (10-50); Mean Corpuscular HGB Conc 33.8 g/dL (31.8-35.4); Mean Corpuscular Hemoglobin 33.5 pg (27.0-31.2); Mean Corpuscular Volume 99.1 fl (81-99); Mean Platelet Volume 10.5 fl (7.4-10.4); Monocytes # 0.6 K/mm3 (0.1-1.0); Monocytes % 6.5 % (1.7-9.3); Neutrophils # 5.8 K/mm3 (1.8-7.8); Neutrophils % 63.5 % (37.0-80.0); Platelet Count 230 K/mm3 (142-424); Red Blood Count 4.45 M/mm3 (4.20-5.40); Red Cell Distribution Width 11.9 % (11.5-17.5); White Blood Count 9.1 K/mm3 (4.8-10.8)
[2024-10-17 17:47] LABS: Albumin Level 4.5 g/dl (3.5-5.0); Chloride 107 mmol/L (98-107); Potassium 4.3 mmoL/L (3.5-5.1); Sodium 141 mmol/L (136-145)
[2024-10-17 17:49] LABS: Alanine Aminotransferase 46 U/L (12-78); Aspartate Amino Transferase 43 U/L (14-36); Blood Urea Nitrogen 8 mg/dl (7-17); Estimated Glomerular Filt Rate 110 ml/min (>60); GFR (African American) 133 ML/MIN (>60)
[2024-10-17 17:50] LABS: Albumin/Globulin Ratio 1.5 (1.1-1.8); Alkaline Phosphatase 68 U/L (38-126); Anion Gap 12.3 mEq/L (5-15); Bilirubin,Total 0.7 mg/dl (0.2-1.3); Calcium 9.7 mg/dl (8.4-10.2); Carbon Dioxide 26 mmol/L (22.0-30.0); Glucose 109 mg/dl (74-100); Total Protein,Serum 7.5 g/dl (6.3-8.2)
[2024-10-17 18:07] LABS: T4 (Thyroxine) 9.2 ug/dl (5.53-11.0)
[2024-10-17 18:21] LABS: Thyroid Stimulating Hormone 3.36 uIU/mL (0.465-4.68)
[2024-10-17 18:30] LABS: HIV Combo NEGATIVE (Negative)
[2024-10-17 18:37] LABS: Hepatitis C Ab Qual. W/ RFX NEGATIVE (Negative)
[2024-10-19 09:52] LABS: Lithium (Eskalith(R)) 0.8 mmol/L (0.5-1.2)
== END 2024-10-17 23:59 | disposition home or self-care (01) ==
LOC: LAB.DROPOF 10-18 11:54
PROVIDERS: PCP Family Medicine; Visit Provider Family Medicine
DX: E78.5 Hyperlipidemia, unspecified (principal)
CPT/HCPCS: 80053; 80178; 84436; 84443; 85025; 86803; 87389

== ENCOUNTER 2024-11-03 23:25 | Outpatient (CLI) | payer OTHER, SELFPAY ==
[2024-11-04 00:12] LABS: Albumin Level 4.1 g/dl (3.5-5.0); Chloride 104 mmol/L (98-107); Potassium 3.6 mmoL/L (3.5-5.1); Sodium 137 mmol/L (136-145)
[2024-11-04 00:13] LABS: Alanine Aminotransferase 23 U/L (12-78); Albumin/Globulin Ratio 1.4 (1.1-1.8); Alkaline Phosphatase 70 U/L (38-126); Anion Gap 11.6 mEq/L (5-15); Aspartate Amino Transferase 30 U/L (14-36); Bilirubin,Total 0.4 mg/dl (0.2-1.3); Blood Urea Nitrogen 9 mg/dl (7-17); Carbon Dioxide 25 mmol/L (22.0-30.0); Estimated Glomerular Filt Rate 79 ml/min (>60); GFR (African American) 96 ML/MIN (>60); Globulin 2.9 g/dL (1.3-3.2)
[2024-11-04 00:14] LABS: Calcium 9.2 mg/dl (8.4-10.2); Glucose 68 mg/dl (74-100)
[2024-11-04 00:45] LABS: Thyroid Stimulating Hormone 9.62 uIU/mL (0.465-4.68)
[2024-11-04 01:14] LABS: Free T4 (Free Thyroxine) 1.07 ng/dl (0.78-2.19)
[2024-11-05 11:28] LABS: Lithium (Eskalith(R)) 0.9 mmol/L (0.5-1.2)
== END 2024-11-03 23:59 | disposition home or self-care (01) ==
LOC: LAB.DROPOF 23:27
PROVIDERS: PCP Family Medicine; Visit Provider Nurse Practitioner Acute Care
DX: F25.0 Schizoaffective disorder, bipolar type (principal); R53.83 Other fatigue; I10 Essential (primary) hypertension; Z79.899 Other long term (current) drug therapy
CPT/HCPCS: 80053; 80178; 84439; 84443

== ENCOUNTER 2024-12-25 12:00 | Outpatient (CLI) | payer OTHER, SELFPAY ==
--- OUTSIDE RECORDS SUMMARY | 2022-06-14 07:09 | XMS_ITS | Continuity of Care Document ---
Author Organization [facility] o Address [address] [place] [address] Phone Care Team Providers Care Oven Unloader Name Role Phone Lawson PHILLIPS, Rios Unavailable Unavailabl e Advance Directives Directive Yes / No Effective Date File Name No Information Encounters Encounter Description Practice Location Reason(s) For Visit Diagnoses Date Provider Providers Copied on Encounter [facility] [place], [facility][note 3] [place], [place], [facility], tel:[phone] 00 [facility] No Information 2 [facility]. [address], [place], [facility], . tel:[phone] Family History Family Member Type Diagnosis Age At Onset No Information Payers Payer name Insurance type Covered green party ID Authoriza tion(s) No Information Social History Type Description Quantity Date Captured Comments Sex Female Smoking Status No Information Chief Complaint And Reason For Visit No Information Reason For Referral Reason For Referral No Information History Of Present Illness Encounter Date Complaint History Of Prese nt Illness No Information Functional Status Date Functional Assessmen t No Information Instructions Date Instruction Additional Infor mation No Information Assessments Type Assessment Date No Information Patient Care Teams Name Effective Dates (start - stop) Status Members No Information
--- OUTSIDE RECORDS SUMMARY | 2024-12-19 23:59 | XMS_ITS | Encounter Summary ---
Author Organization [facility] Address [address] [place] [id number] Care Team Providers Care Business Objects Analyst Name Role Phone Ryan Love MD Primary Care Provider [phone] Source Comments This information has been disclosed [...] release of HIV test results or diagnoses. [id number] Reason for Visit * Reason Comments Ankle Swelling Encounter Details Date Type Department Care Team (Late st Contact Info) Description 12/19/2024 11:59 PM EDT - 12/20/2024 2:59 AM EDT Emergency [facility] Emergency Department [address] [place] [id number] Discharge Disposition: ED Dismiss - Left [...] each 1 08/02/2021 naloxone (NARCAN) 4 mg/actuation [place] Insert into either nostril then completely depress [...] 12/20/2024 12:01 AM EDT Pt presents to [facility] with complaints of swelling of the [...] DEBBIE Mcneil - 12/20/2024 12:28 AM EDT [facility] Provider Note MEDICAL SCREENING EXAM Date of Service: 12/20/2024 Reason for Visit: Ankle Swelling MSE Plan The patient was briefly evaluated from the hospital for behavioral medicine for a medical screening exam. In short, [...] Disp: , Rfl: naloxone (NARCAN) 4 mg/actuation [place], Apply 1 spray in one nostril if needed. Call 911. May repeatdose in other nostril if no response in 3 minutes., Disp: 2 each, Rfl: 1 naloxone (NARCAN) 4 mg/actuation [place], Insert into either nostril then completely depress [...] ng/L 12/20/2024 1:30 AM EDT [facility] Serum 12/20/2024 12:5 7 AM EDT 12/20/2024 1:04 AM EDT us Kathryn LEWIS [facility] BLOOD ORDERABLES Final Resul t [facility] [address] [place] [address], [facility] * Hepatic Function Panel (12/20/2024 12:56 AM EDT) Total Bilirubin 0.6 0.0 - 1.5 mg/dL 12/20/2024 1:22 AM EDT [facility] Bilirubin, Direct 0.1 0.0 - 0.4 mg/dL 12/20/2024 1:22 AM EDT [facility] AST 19 13 - 39 U/L 12/20/2024 1:22 AM EDT [facility] ALT 24 7 - 52 U/L 12/20/2024 1:22 AM EDT [facility] Alkaline Phosphatase 52 36 - 125 U/L 12/20/2024 1:22 AM EDT [facility] Total Protein 6.5 6.4 - 8.9 g/dL 12/20/2024 1:22 AM EDT [facility] Albumin 3.7 3.5 - 5.7 g/dL 12/20/2024 1:22 AM EDT [facility] Bilirubin, Indirect 0.5 0.0 - 1.1 mg/dL 12/20/2024 1:22 AM EDT [facility] Plasma 12/20/2024 12:5 6 AM EDT 12/20/2024 1:04 AM EDT us Kathryn LEWIS LAB BLOOD ORDERABLES Final Resul t [facility] [address] * BNP (12/20/2024 12:56 AM EDT) [...] BLOOD ORDERABLES Final Resul t [facility] [address] * (ABNORMAL) Differential (12/20/2024 12:56 AM EDT) Pathologist [facility] Neutrophils Relative 55.1 40.0 - 80.0 % 12/20/2024 1:29 AM EDT [facility] Lymphocytes Relative 30.9 15.0 - 45.0 % 12/20/2024 1:29 AM EDT [facility] Monocytes Relative 7.3 0.0 - 12.0 % 12/20/2024 1:29 AM EDT [facility] Eosinophils Relative 4.7 0.0 - 8.0 % 12/20/2024 1:29 AM EDT [facility] Basophils Relative 2.0(H) 0.0 - 1.0 % 12/20/2024 1:29 AM EDT [facility] nRBC 0 0 - 0 /100 WBC 12/20/2024 1:29 AM EDT [facility] Neutrophils Absolute 4,739 1,520 - 8,640 /uL 12/20/2024 1:29 AM EDT [facility] Lymphocytes Absolute 2,657 570 - 4,860 /uL 12/20/2024 1:29 AM EDT [facility] Monocytes Absolute 628 0 - 1,296 /uL 12/20/2024 1:29 AM EDT [facility] Eosinophils Absolute 404 0 - 864 /uL 12/20/2024 1:29 AM EDT [facility] Basophils Absolute 172(H) 0 - 108 /uL 12/20/2024 1:29 AM EDT [facility] Whole Blood 12/20/2024 12:5 6 AM EDT 12/20/2024 1:10 AM EDT Kathryn LEWIS [facility] BLOOD ORDERABLES Final Resul t [facility] [address] * (ABNORMAL) CBC (12/20/2024 12:56 AM EDT) WBC 8.6 3.8 - 10.8 10E3/uL 12/20/2024 1:29 AM EDT [facility] RBC 3.75(L) 3.80 - 5.10 10E6/uL 12/20/2024 1:29 AM EDT [facility] Hemoglobin 12.6 11.7 - 15.5 g/dL 12/20/2024 1:29 AM EDT [facility] Hematocrit 36.3 35.0 - 45.0 % 12/20/2024 1:29 AM EDT [facility] MCV 96.8 80.0 - 100.0 fL 12/20/2024 1:29 AM EDT [facility] MCH 33.7(H) 27.0 - 33.0 pg 12/20/2024 1:29 AM EDT [facility] MCHC 34.8 32.0 - 36.0 g/dL 12/20/2024 1:29 AM EDT [facility] RDW 13.4 11.0 - 15.0 % 12/20/2024 1:29 AM EDT [facility] Platelets 244 140 - 400 10E3/uL 12/20/2024 1:29 AM EDT [facility] MPV 7.6 7.5 - 11.5 fL 12/20/2024 1:29 AM EDT [facility] Whole Blood 12/20/2024 12:5 6 AM EDT 12/20/2024 1:10 AM EDT us Kathryn LEWIS LAB BLOOD ORDERABLES Final Resul t [facility] [address] * ED HCV Ab Reflex To HCV Quant (12/20/2024 12:56 AM EDT) HCV Ab Nonreactive Nonreactive 12/20/2024 2:07 AM EDT [facility] Comment:Health Department no tified in accordance with reportable infectious disease guidelines. HCVAB Number 0.05 0.00 - 0.79 S/CO 12/20/2024 2:07 AM EDT [facility] Serum 12/20/2024 12:5 6 AM EDT 12/20/2024 1:08 AM EDT us Kathryn LEWIS LAB BLOOD ORDERABLES Final Resul t [facility] [address] [place] [address], [facility] * (ABNORMAL) Basic metabolic panel (12/20/2024 12:56 AM EDT) Sodium 138 133 - 146 mmol/L 12/20/2024 1:22 AM EDT [facility] Potassium 3.7 3.5 - 5.3 mmol/L 12/20/2024 1:22 AM EDT [facility] Chloride 107 98 - 110 mmol/L 12/20/2024 1:22 AM EDT [facility] CO2 25 21 - 33 mmol/L 12/20/2024 1:22 AM EDT [facility] Anion Gap 6 3 - 16 mmol/L 12/20/2024 1:22 AM EDT [facility] BUN 9 7 - 25 mg/dL 12/20/2024 1:22 AM EDT [facility] Creatinine 0.75 0.60 - 1.30 mg/dL 12/20/2024 1:22 AM EDT [facility] Glucose 107(H) 70 - 100 mg/dL 12/20/2024 1:22 AM EDT [facility] Calcium 8.6 8.6 - 10.3 mg/dL 12/20/2024 1:22 AM EDT [facility] Osmolality, Calculated 285 278 - 305 mOsm/kg 12/20/2024 1:22 AM EDT [facility] EGFR >90 12/20/2024 1:22 AM EDT [facility] Comment: As of 2021, the [...] ORDERABLES Final Resul t Performing Organization Address City/State/[facility] Co de Phone Number [facility] [address] * ECG for indication of syncope (12/20/2024 12:50 AM EDT) 12/20/2024 12:5 0 AM EDT Narrative MUSE - 12/20/2024 8:16 AM EDT Ventricular Rate: 67 BPM Atrial Rate: 67 BPM P-R Interval: 154 ms QRS Duration: 88 ms QT: 394 ms QTc: 416 ms P [place]: 11 degrees R [place]: -4 degrees T [place]: -5 degrees Diagnosis Line: ^ INTERPRETATION NOT AVAILABLE--ECG READ IN ER ^ Confirmed by PHYSICIAN, ER ([id number]), copy editor Le Simon ([id number]) on 12/20/2024 8:16:14 AM Kathryn LEWIS ECG ORDERABLES Final Result MUSE documented in this encounter Visit Diagnoses Not on filedocumented in this encounter Care Teams Business Objects Analyst Relationship Specialty Start Date End Date Ryan Love MD [address] [place] [address] PCP - General Family Medicine 09/24/24 documented as of this encounter
--- OUTSIDE RECORDS SUMMARY | 2024-12-23 21:46 | XMS_ITS | Encounter Summary ---
Author Organization [facility] Address [address] [place] [address] Care Team Providers Care Party Host Name Role Phone Ryan Love MD Primary Care Provider [phone] Source Comments This information has been disclosed [...] release of HIV test results or diagnoses. [id number] Reason for Visit * Reason Comments Foot Swelling Bilateral Fall Encounter Details Date Type Department Care Team (Late st Contact Info) Description 12/23/2024 9:46 PM EDT - 12/24/2024 12:31 AM EDT Emergency [facility] Emergency Department [address] [place] [phone] Discharge Disposition: ED Dismiss - Left Before [...] each 1 08/02/2021 naloxone (NARCAN) 4 mg/actuation [place] Insert into either nostril then completely depress [...] DEBBIE Avila - 12/24/2024 12:31 AM EDT [facility] ED Callback Note Juliana Olguin is [...] patient understands and agrees with this plan. DBEBIE [facility] This note was dictated using voice-recognition software, which occasionally leads to inadvertent typographic errors. Cosigned by Sam Eduardo III, MD at 12/24/2024 7:59 PM EDT * ED Medical Screening Exam - DEBBIE Shetty - 12/23/2024 10:11 PM EDT [facility] MEDICAL SCREENING EXAM Date of Service: 12/23/2024 Reason for Visit: Foot Swelling (Bilateral ) and Fall MSE Plan Patient evaluated from the [facility] for a medical screening exam. In [...] (from the past 4160 hours). [facility]. See primary provider's [...] Disp: , Rfl: naloxone (NARCAN) 4 mg/actuation [place], Apply 1 spray in one nostril if needed. Call 911. May repeatdose in other nostril if no response in 3 minutes., Disp: 2 each, Rfl: 1 naloxone (NARCAN) 4 mg/actuation [place], Insert into either nostril then completely depress [...] - 3 /HPF 12/23/2024 10:59 PM EDT [facility] WBC, UA >100(H) 0 - 5 /HPF 12/23/2024 10:59 PM EDT [facility] WBC Clumps, UA Moderate(A ) None Seen /HPF 12/23/2024 10:59 PM EDT [facility] Squam Epithel, UA 1 0 - 5 /HPF 12/23/2024 10:59 PM EDT [facility] Trans Epithel, UA 2 0 - 5 /HPF 12/23/2024 10:59 PM EDT [facility] Bacteria, UA Moderate(A ) None Seen /HPF 12/23/2024 10:59 PM EDT [facility] Hyaline Casts, UA 1 0 - 2 /LPF 12/23/2024 10:59 PM EDT [facility] Urine 12/23/2024 10:2 8 PM EDT 12/23/2024 10:35 PM EDT Amisha LEWIS URINE ORDERABLES Final Result Performing Organization Address City/[facility]/ZIP Co de Phone Number [facility] [address] [facility] * HCG Urine, Qualitative (12/23/2024 10:28 PM EDT) hCG Qualitative -Clinitek Negative Negative 12/23/2024 10:42 PM EDT [facility] Urine 12/23/2024 10:2 8 PM EDT 12/23/2024 10:33 PM EDT Amisha LEWIS URINE ORDERABLES Final Result Performing Organization Address City/[facility]/ZIP Wv de Phone Number [facility] [address] [facility] * (ABNORMAL) Urinalysis-Macroscopic w/Rfx to Microsco (12/23/2024 10:28 PM EDT) Color, UA Yellow Yellow,Straw 12/23/2024 10:59 PM EDT [facility] Clarity, UA Cloudy(A) Clear 12/23/2024 10:59 PM EDT [facility] Specific [place], UA 1.015 1.005 - 1.035 12/23/2024 10:59 PM EDT [facility] pH, UA 6.0 5.0 - 8.0 12/23/2024 10:59 PM EDT [facility] Protein, UA Negative Negative mg/dL 12/23/2024 10:59 PM EDT [facility] Glucose, UA Negative Negative mg/dL 12/23/2024 10:59 PM EDT [facility] Ketones, UA Negative Negative mg/dL 12/23/2024 10:59 PM EDT [facility] Bilirubin, UA Negative Negative 12/23/2024 10:59 PM EDT [facility] Blood, UA Trace-intact (A) Negative 12/23/2024 10:59 PM EDT [facility] Nitrite, UA Positive(A) Negative 12/23/2024 10:59 PM EDT [facility] Urobilinogen, UA 0.2 E.U./dL 0.2 - 1.0 EU/dL 12/23/2024 10:59 PM EDT [facility] Leukocyte Esterase, UA Moderate(A) Negative 12/23/2024 10:59 PM EDT [facility] Urine 12/23/2024 10:2 8 PM EDT 12/23/2024 10:33 PM EDT us Amisha LEWIS URINE ORDERABLES Final Result Performing Organization Address [facility]/ZIP Co de Phone Number [facility] [address] [facility] * High Sensitivity Troponin (12/23/2024 10:28 PM EDT) High Sensitivity Troponin 3 0 - 14 ng/L 12/23/2024 10:58 PM EDT [facility] Serum 12/23/2024 10:2 8 PM EDT 12/23/2024 10:33 PM EDT us Amisha LEWIS LAB BLOOD ORDERABLES Final Resul t [facility] [address] [facility] * Hepatic Function Panel (12/23/2024 10:28 PM EDT) Total Bilirubin 0.5 0.0 - 1.5 mg/dL 12/23/2024 10:52 PM EDT [facility] Bilirubin, Direct 0.3 0.0 - 0.4 mg/dL 12/23/2024 10:52 PM EDT [facility] AST 18 13 - 39 U/L 12/23/2024 10:52 PM EDT [facility] ALT 17 7 - 52 U/L 12/23/2024 10:52 PM EDT [facility] Alkaline Phosphatase 47 36 - 125 U/L 12/23/2024 10:52 PM EDT [facility] Total Protein 6.9 6.4 - 8.9 g/dL 12/23/2024 10:52 PM EDT [facility] Albumin 4.0 3.5 - 5.7 g/dL 12/23/2024 10:52 PM EDT [facility] Bilirubin, Indirect 0.2 0.0 - 1.1 mg/dL 12/23/2024 10:52 PM EDT [facility] Plasma 12/23/2024 10:2 8 PM EDT 12/23/2024 10:33 PM EDT us Amisha LEWIS LAB BLOOD ORDERABLES Final Resul t [facility] [address] * Differential (12/23/2024 10:28 PM EDT) Neutrophils Relative 54.5 40.0 - 80.0 % 12/23/2024 10:54 PM EDT [facility] Lymphocytes Relative 31.9 15.0 - 45.0 % 12/23/2024 10:54 PM EDT [facility] Monocytes Relative 7.9 0.0 - 12.0 % 12/23/2024 10:54 PM EDT [facility] Eosinophils Relative 4.8 0.0 - 8.0 % 12/23/2024 10:54 PM EDT [facility] Basophils Relative 0.9 0.0 - 1.0 % 12/23/2024 10:54 PM EDT [facility] nRBC 0 0 - 0 /100 WBC 12/23/2024 10:54 PM EDT [facility] Neutrophils Absolute 4,197 1,520 - 8,640 /uL 12/23/2024 10:54 PM EDT [facility] Lymphocytes Absolute 2,456 570 - 4,860 /uL 12/23/2024 10:54 PM EDT [facility] Monocytes Absolute 608 0 - 1,296 /uL 12/23/2024 10:54 PM EDT [facility] Eosinophils Absolute 370 0 - 864 /uL 12/23/2024 10:54 PM EDT [facility] Basophils Absolute 69 0 - 108 /uL 12/23/2024 10:54 PM EDT [facility] Whole Blood 12/23/2024 10:2 8 PM EDT 12/23/2024 10:46 PM EDT us Amisha LEWIS LAB BLOOD ORDERABLES Final Resul t [facility] [address] [place] [address], [facility] * (ABNORMAL) CBC (12/23/2024 10:28 PM EDT) WBC 7.7 3.8 - 10.8 10E3/uL 12/23/2024 10:54 PM EDT [facility] RBC 3.81 3.80 - 5.10 10E6/uL 12/23/2024 10:54 PM EDT [facility] Hemoglobin 12.6 11.7 - 15.5 g/dL 12/23/2024 10:54 PM EDT [facility] Hematocrit 37.3 35.0 - 45.0 % 12/23/2024 10:54 PM EDT [facility] MCV 98.1 80.0 - 100.0 fL 12/23/2024 10:54 PM EDT [facility] MCH 33.1(H) 27.0 - 33.0 pg 12/23/2024 10:54 PM EDT [facility] MCHC 33.8 32.0 - 36.0 g/dL 12/23/2024 10:54 PM EDT [facility] RDW 13.3 11.0 - 15.0 % 12/23/2024 10:54 PM EDT [facility] Platelets 247 140 - 400 10E3/uL 12/23/2024 10:54 PM EDT [facility] MPV 7.6 7.5 - 11.5 fL 12/23/2024 10:54 PM EDT [facility] Whole Blood 12/23/2024 10:2 8 PM EDT 12/23/2024 10:46 PM EDT us Amisha LEWIS LAB BLOOD ORDERABLES Final Resul t [facility] [address] * (ABNORMAL) Basic metabolic panel (12/23/2024 10:28 PM EDT) Sodium 140 133 - 146 mmol/L 12/23/2024 10:52 PM EDT [facility] Potassium 3.8 3.5 - 5.3 mmol/L 12/23/2024 10:52 PM EDT [facility] Chloride 110 98 - 110 mmol/L 12/23/2024 10:52 PM EDT [facility] CO2 24 21 - 33 mmol/L 12/23/2024 10:52 PM EDT [facility] Anion Gap 6 3 - 16 mmol/L 12/23/2024 10:52 PM EDT [facility] BUN 6(L) 7 - 25 mg/dL 12/23/2024 10:52 PM EDT [facility] Creatinine 0.88 0.60 - 1.30 mg/dL 12/23/2024 10:52 PM EDT [facility] Glucose 124(H) 70 - 100 mg/dL 12/23/2024 10:52 PM EDT [facility] Calcium 8.7 8.6 - 10.3 mg/dL 12/23/2024 10:52 PM EDT [facility] Osmolality, Calculated 289 278 - 305 mOsm/kg 12/23/2024 10:52 PM EDT [facility] EGFR 85 12/23/2024 10:52 PM EDT [facility] Comment:As of 2021, the estimated GFR [...] LEWIS LAB BLOOD ORDERABLES Final Resul t [facility] [address] * X-ray Chest PA and Lateral [...] on filedocumented in this encounter Care Teams Party Host Relationship Specialty Start Date End Date Ryan Love MD [address] [place] [address] PCP - General Family Medicine 09/24/24 documented as of this encounter
[2024-12-25 19:33] LABS: Hemoglobin A1C 5.3 % (4.0-6.0)
[2024-12-25 19:43] LABS: Alanine Aminotransferase 19 U/L (12-78); Albumin Level 3.6 g/dl (3.5-5.0); Albumin/Globulin Ratio 1.3 (1.1-1.8); Alkaline Phosphatase 64 U/L (38-126); Anion Gap 5.8 mEq/L (5-15); Aspartate Amino Transferase 22 U/L (14-36); Bilirubin,Total 0.7 mg/dl (0.2-1.3); Blood Urea Nitrogen 5 mg/dl (7-17); Calcium 9.2 mg/dl (8.4-10.2); Carbon Dioxide 25 mmol/L (22.0-30.0); Chloride 111 mmol/L (98-107); Chol/HDL Ratio 2.7 (1-3.5); Cholesterol 142 mg/dl (140-200); Estimated Glomerular Filt Rate 92 ml/min (>60); GFR (African American) 112 ML/MIN (>60); Globulin 2.7 g/dL (1.3-3.2); Glucose 96 mg/dl (74-100); HDL Cholesterol 53 mg/dl (40-60); Potassium 3.8 mmoL/L (3.5-5.1); Sodium 138 mmol/L (136-145); Total Protein,Serum 6.3 g/dl (6.3-8.2); Triglycerides 178 mg/dl (30-150); VLDL Cholesterol 36 mg/dL (0-40)
[2024-12-25 19:54] LABS: Direct LDL Cholesterol 56.66 mg/dL (100-129); Free T4 (Free Thyroxine) 1.12 ng/dl (0.78-2.19)
[2024-12-25 20:13] LABS: Thyroid Stimulating Hormone 4.43 uIU/mL (0.465-4.68)
--- OUTSIDE RECORDS SUMMARY | 2024-12-26 14:30 | XMS_ITS | Encounter Summary ---
Author Organization [facility] Address [address] [place] [address] Care Team Providers Care Asbestos Brake Lining Finisher Name Role Phone Pcp, No Primary Care Provider Unavailabl e Bren Lira DMD Unavailable [phone] Eugene Holloway Unavailable Unavailabl e Reason for Visit * Consultation (Routine) - Closed Specialty Diagnoses / Procedures Referred By Octavio hicks Referred To Contact Oral Surgery Diagnoses Encounter for dental examination Garrison Rosenberg, DMD 800 [facility] [address] [place] [address] Phone: tel: fax: [facility] [address] [address] Phone: tel: fax: Referral ID Status Reason Start Date Expiration Date V isits Requested Visits Authorized [id number] Closed Specialty Services Required 09/05/2024 03/07/2026 1 1 Encounter Details Date Type Department Care Team (Late st Contact Info) Description 12/26/2024 2:30 PM EDT Evaluation [facility] [address] [address] Akin Shay, DMD 800 [facility] [address] [place] [address] Oral mucosal lesion (Primary Dx) Social History Tobacco Use Types Packs/Day Years Used Date Smoking Tobacco: Every Day Cigarettes 1 27 Smokeless Tobacco: Never Alcohol Use Standard Drinks/Week Comments Not Currently 0 (1 standard drink = 0.6 oz pur e alcohol) Comments Unknown Sex and Gender Information Value Date Recorded Sex Assigned at Not on file Legal Sex Female 8:06 PM EDT Gender Identity Not on file Sexual Orientation Not on file documented as of this encounter Last Filed Vital Signs Vital Sign Reading Time Taken Comments Blood Pressure 109/65 12/26/2024 3:20 PM EDT Pulse 70 12/26/2024 3:20 PM EDT Temperature 36.6 C (97.9 F) 12/26/2024 3:20 PM EDT Respiratory Rate - - Oxygen Saturation 96% 12/26/2024 3:20 PM EDT Inhaled Oxygen Concentration - - Weight 143 kg (315 lb 11.2 oz) 12/26/2024 3:20 P M EDT Height 180.3 cm (5' 11 ) 12/26/2024 3:20 PM EDT Body Mass Index 44.03 12/26/2024 3:20 PM EDT documented in this encounter Plan of Treatment Upcoming Encounters Date Type Department Care Team (Late st Contact Info) Description 12/31/2024 9:00 AM EDT Office Visit [facility] [address] [phone] documented as of this encounter Visit Diagnoses Diagnosis Oral mucosal lesion- Primary documented in this encounter Care Teams Asbestos Brake Lining Finisher Relationship Specialty Start Date End Date Pcp, No 800 [place] [address] PCP - General Family Medicine 09/05/24 Bren Lira, DMD [address] [address] Dentist 09/18/24 Eugene Holloway Dental Student Dental Paste Thinner 09/18/24 documented as of this encounter
--- OUTSIDE RECORDS SUMMARY | 2024-12-26 23:21 | XMS_ITS | Clinical Summary ---
Author Organization [facility] Address [address] [place] [address] Care Team Providers Care Support Services Tech Name Role Phone Pcp, No Primary Care Provider Unavailabl e Bren Lira DMD Unavailable Eugene Holloway Unavailable Unavailabl e Allergies No known active allergies Medications HYDROcodone-acetami nophen ([place]) 5-325 MG tabletIndications:P ain,Back pain Take 1 tablet (5 mg of hydrocodone ) by mouth 3 (three) times a day. Taken 3 times a day for back pain Active cloNIDine (Catap[place]) 0.1 MG tabletIndications:T olesya for anxiety Take 1 tablet (0.1 mg) by mouth 2 (two) times a day. Active aspirin 81 MG EC tablet Take 1 tablet (81 mg) by mouth daily. Takes once a day for heart pressure. Active baclofen (Lioresal) 10 MG tabletIndications:b ack pain Take 1 tablet (10 mg) by mouth daily. Active mirtazapine (Remeron Edna-Tab) 45 MG disintegrating tabletIndications:S leep Take 1 tablet (45 mg) by mouth nightly. Active lithium ER (Eskalith) 450 MG 12 hr tabletIndications:B ipolar Mood Disorder Take 1 tablet (450 mg) by mouth 2 (two) times a day. Do not crush, chew, or split. Active Encounters Date Type Department Care Team Description 12/26/2024 2:30 PM EDT Evaluation [facility] [address] [phone] Akin Shay, DMD Oral mucosal lesion (Primary Dx) 12/26/2024 Travel 12/26/2024 Telephone [facility] [address] [phone] Dental, SurgeonMD 12/25/2024 Telephone [facility] [address] [phone] Dental, SurgeonMD 11/09/2024 Travel from Last 3 Months Family History Medical History Relation Name Comments Heart disease Maternal Grandmother Heart disease Mother Relation Name Status Comments Maternal Grandmother Mother Social History Tobacco Use Types Packs/Day Years Used Date Smoking Tobacco: Every Day Cigarettes 08 11 Smokeless Tobacco: Never Tobacco Cessation:Ready to Q uit: No; Counseling Given: No Alcohol Use Standard Drinks/Week Comments Not Currently 0 (1 standard drink = 0.6 oz pur e alcohol) Comments Unknown Sex and Gender Information Value Date Recorded Sex Assigned at Not on file Legal Sex Female 8:06 PM EDT Gender Identity Not on file Sexual Orientation Not on file Last Filed Vital Signs Vital Sign Reading [...] Mass Index 44.03 12/26/2024 3:20 PM EDT Plan of Treatment Upcoming Encounters Date Type Department Care Team (Late st Contact Info) Description 12/31/2024 9:00 AM EDT Office Visit [facility] [address] [place] [phone] Health Maintenance Due Date Last Done Comments Dental Prophylaxis 1983 Dental X-Ray: Bitewings 1983 [facility]-Depression Screening 1983 [facility]-HIV Screening 1983 [facility]-Hepatitis C Screening 1983 [facility]-/Child/Adol SDOH Screenings 1983 [facility]-Obesity Intervention 1989 [facility]-Varicella Vaccines (1 of 2 - 13+ 2-dose series) 1996 HPV Vaccines (1 - 3-dose series) 1998 [facility]- SDOH Screenings 2001 [facility]-Adult SDOH Screenings 2001 [facility]-DTaP,Tdap,and Td Vaccine s (1 - Tdap) 2002 [facility]-Hepatitis B Vaccines (1 of 3 - 19+ 3-dose series) 2002 [id number] Vaccine (3 - season) 2024 11/24/2020, 10/27/2020 Dental Oral Exam 03/06/2025 09/05/2024 Dental X-Ray: Full Mouth 09/06/2027 09/05/2024 [facility]-Zoster Vaccines (1 of 2) 2033 [facility]-Pneumococcal Vaccine: Pediatrics (0 to 5 Years) and At-Risk Patients (6 to 49 Years) Completed 08/21/2023 [facility]-Influenza Vaccine Completed 03/13/2024 , 04/28/2023, 05/09/2021 [facility]-HIB Vaccines Aged Out No longer e ligible based on patient's age to complete this topic [facility]-Hepatitis A Vaccines Aged Out No longer eligible based on patient's age to complete this topic [facility]-IPV Vaccines Aged Out No longer e ligible based on patient's age to complete this topic [facility]-Rotavirus Vaccines Aged Out No lo nger eligible based on patient's age to complete this topic Procedures Procedure Name Priority Date/Time Associated Diagnosis Comments PANORAMIC RADIOGRAPHIC IMAGE Routine 09/05/2024 8:30 AM EST Encounter for dental examination COMPREHENSIVE ORAL EVALUATION - NEW OR ESTABLISHED PATIENT Routine 09/05/2024 8:30 AM EST Encounter for dental examination from Last 3 Months or Most Recently Relevant to Health Maintenance Insurance [address] Care Teams Support Services Tech Relationship Specialty Start Date End Date Pcp, No [address] [place] [address] PCP - General Family Medicine 09/05/24 Bren Lira, DASHAWN [address] [phone] Dentist 09/18/24 Eugene Holloway Dental Student Dental President And Ceo 09/18/24
--- OUTSIDE RECORDS SUMMARY | 2024-12-26 23:21 | XMS_ITS | Encounter Summary ---
Author Organization [facility] Address [address] [place] [address] Care Team Providers Care Lace Mender Name Role Phone Pcp, No Primary Care Provider Unavailabl e Bren Lira DMD Unavailable [phone] Eugene Holloway Unavailable Unavailabl e Reason for Referral * Consultation (Routine) - Authorized Specialty Diagnoses / Procedures Referred By Octavio t Referred To Contact Neurosurgery Diagnoses Thoracic, thoracolumbar and lumbosacral intervertebral disc disorder Ryan Love MD [address] [place] [phone] Phone: tel: fax: Referral ID Status Reason Start Date Expiration Date Visits Requested Visits Authorized [id number] Authorized Specialty Services Required 02/04/2024 08/05/2025 1 1 Encounter Details Date Type Department Care Team (Latest Contact Info) Description 02/04/2024 Community [facility] [address] [place] [phone] Ryan Love MD [facility] [place] [address] Thoracic, thoracolumbar and lumbosacral intervertebral disc disorder (Primary Dx) Social History Tobacco Use Types Packs/Day Years Used Date Smoking Tobacco: Never Assessed Comments Unknown Sex and Gender Information Value Date Recorded Sex Assigned at Not on file Legal Sex Female 8:06 PM EDT Gender Identity Not on file Sexual Orientation Not on file documented as of this encounter Plan of Treatment Upcoming Encounters Date Type Department Care Team (Late st Contact Info) Description 12/31/2024 9:00 AM EDT Office Visit [facility] [address] [phone] Scheduled Referrals Name Type Priority Associated Diagnoses Orde r Schedule Ambulatory Referral to Neurosurgery Outpatient Referral Routine Thoracic, thoracolumbar and lumbosacral intervertebral disc disorder Expected: 02/04/2024 (Approximate), Expires: 08/06/2025 documented as of this encounter Visit Diagnoses Diagnosis Thoracic, thoracolumbar and lumbosacral intervertebral disc disorder- Primary documented in this encounter Care Teams Lace Mender Relationship Specialty Start Date End Date Pcp, No [address] [place] [address] PCP - General Family Medicine 09/05/24 Bren Lira, DMD [address] [phone] Dentist 09/18/24 Eugene Holloway Dental Student Dental Home Sales Consultant 09/18/24 documented as of this encounter
--- OUTSIDE RECORDS SUMMARY | 2024-12-26 23:21 | XMS_ITS | Data Portability ---
Author Organization [facility] Address [address] [place] [address] Assessment No assessment recorded. Plan of Treatment Reminders Order Date Submit Date Provider Last Modified By Organization Details Last Modified Time Details Appointments None recorded. Lab None recorded. Referral None recorded. Procedures None recorded. Surgeries None recorded. Imaging [facility], [facility], w/o contrast [facility] [address] [place] [address] [place], [address], 4 12:54:46 XR, knee 2023 024 jill [facility], [address] [place] [address] [place], [address], 4 09:06:17 XR, ankle 2023 024 rios [facility], [address] [place] [address] [place], [address], 4 09:47:02 Medication Orders Voltaren Arthritis Pain 1 % topical gel 2023 024 rios [facility] [id number], [address] [place] [address] [place], [address], 4 11:18:36 Medrol (Desmond) 4 mg tablets in a dose pack [address] [place] [address] Pharmacy [id number], [address] [place] [address] [place], [address], 11:18:36 Patient TargetsNo targets recorded. Patient InstructionsNo instructions recorded. Reason for Referral None Reported. Results Created Date Observation Date Name Description Value Unit Range Abnormal Flag Note LastModifiedBy Organization Detail LastModifiedTime 08/08/19 XR, ankle No observ ation record ed. [email or web address] Not Available 2023 09:27:26 09/05/19 24 XR, ankle No observ ation record ed. MARY [address] [place], [address], 09/05/2023 09:20:29 03/13/20 XR, knee No observ ation record ed. MARY Tillman [address] [place], [address], 03/13/2024 09:54:46 04/15/2004/15/2024 MRI, knee, w/o contr ast [facility] Name: VERNON OLGUIN [employer] Phys: [place] [address] : 1984 Age: 38 Sex: F Acct: [id number] Loc: G.MRI PHONE #: [phone] Exam Date: 2023 Status : REG CLI FAX #: [phone] Rad# [id number] Unit# [id number] Admit Date: 2023 EXAMS: CPT CODE: [id number] MRI KNEE LEFT W/O CONT 68761 CLINIC AL INFORM ATION: Left knee pain for 2-1/2 months with no known trauma . Swelli ng and instab ility. COMPAR WILMAR: No compar wilmar availa ble. TECHNI QUE: Sagitt al T2, proton densit y, and proton -densi ty fat-sa turate d; snider l T1 and T2 fat-sa t; axial T2. FINDIN GS: Marrow signal age-ap propri ate. Crucia te and collat eral ligame nts are intact . Mild chondr al irregu lariti es noted in the medial knee joint compar tment. Latera l joint and the patell ofemor al articu lation are within normal limits . Trace suprap atella r joint effusi on. No visibl e menisc al tears. There is mild superf icial edema noted anteri or to the patell a and the patell ar tendon . IMPRES KG: 1. Mild osteoa rthrit is of the medial knee joint compar tment with trace joint effusi on. 2. Nonspe cific superf icial edema anteri or to the patell a and patell ar tendon This report is genera shaneka using voice recogn ition comput er softwa re. Inadve rtent errors may have occurr ed while dictat ing report . Common sense approa ch is apprec iated and do not hesita te to call for Geoli.st Classifieds icatio n when necess fili. Electr onical ly Signed by Yudy Do on 2023 at 8847 Report ed and signed by: STEVE Do M.D. PAGE 1 Signed Report (JASON NUED) [facility] Name: VERNON OLGUIN Pam Garcia [address] [place], [place] [address]a Lyst Phys: Lowell Mac[place] [address] : 1984 Age: 38 Sex: F Acct: [id number] Loc: G.MRI PHONE #: Exam Date: 2023 Status : REG CLI FAX #: Rad# [id number] Unit# [id number] Admit Date: 2023 EXAMS: CPT CODE: [id number] MRI KNEE LEFT W/O CONT 95839 CC: Earnest Mackey DO; Ryan Love MD Dictat ed Date/T eliseo: 2023 (5307) Techno logist : WHITNEY AYALA RT(R)( M)(CT) (MR) Transc ribed Date/T eliseo: 2023 (1249) Transc riptio nist: DR.HAR SUZANNE elmore Signat ure Date/T eliseo: 2023 (9562) Printe d Date/T eliseo: 2023 (9076) BATCH NO: N/A PAGE 2 Signed Report CC'ed Logic: Orderi ng Provid er: KEY EARNEST Attend ing Provid er: KEY EARNEST Referr ing Provid er: KEY HUFF Consul ting Provid er: EVE MCMANUS [email or web address], [place], [address], 04/15/2024 15:04:25 Result Notes Documentation Provider Name and Address Organization Details Recorded Time Mri, Knee, W/o Contrast : [facility] Name: JULIANA OLGUIN Jose [address] [place] [address] Phys: [place] [address] : 1985 Age: 38 Sex: F Acct: [id number] Loc: G.MRI PHONE #: Exam Date: 04/15/2024 Status: REG CLI FAX #: Rad# [id number] Unit# [id number] Admit Date: 04/15/2024 EXAMS: CPT CODE: [id number] MRI KNEE LEFT W/O CONT 11343 CLINICAL INFORMATION: Left knee pain for 2-1/2 months with no known trauma. Swelling and instability. COMPARISON: No comparison available. TECHNIQUE: Sagittal T2, proton density, and proton-density fat-saturated; coronal T1 and T2 fat-sat; axial T2. FINDINGS: Marrow signal age-appropriate. Cruciate and collateral ligaments are intact. Mild chondral irregularities noted in the medial knee joint compartment. Lateral joint and the patellofemoral articulation are within normal limits. Trace suprapatellar joint effusion. No visible meniscal tears. There is mild superficial edema noted anterior to the patella and the patellar tendon. IMPRESSION: 1. Mild osteoarthritis of the medial knee joint compartment with trace joint effusion. 2. Nonspecific superficial edema anterior to the patella and patellar tendon This report is generated using voice recognition computer software. Inadvertent errors may have occurred while dictating report. Common sense approach is appreciated and do not hesitate to call for clarification when necessary. at 1249 Reported and signed by: SHANA PRUETT M.D. PAGE 1 Signed Report (CONTINUED) [facility] Name: JULIANA OLGUIN [place] Phys: [place] [address] : 1985 Age: 38 Sex: F Acct: [id number] Loc: G.MRI PHONE #: Exam Date: 04/15/2024 Status: REG CLI FAX #: Rad# [id number] Unit# [id number] Admit Date: 04/15/2024 EXAMS: CPT CODE: [id number] MRI KNEE LEFT W/O CONT 64262 CC: Earnest Mackey DO; Ryan Love MD Dictated Date/Time: 04/15/2024 (1249) Technologist: WHITNEY AYALA RT(R)(M)(CT)(MR) Transcribed Date/Time: 04/15/2024 (1249) Piledriver Carpenter: Electronic Signature Date/Time: 04/15/2024 (1249) Printed Date/Time: 04/15/2024 (1113) BATCH NO: N/A PAGE 2 Signed Report CC'ed Logic: Ordering Provider: KEY HUFF Attending Provider: KEY HUFF Referring Provider: KEY HUFF Consulting Provider: EVE velarde [facility] & [place] 04/15/2024 15:04:25 Procedures Surgical History Date Name Laterality Status Provider Name and Address Organization Details Recorded Time 8 Abdominal Surgery completed Pamela Chen [facility] & [place] 06/26/2023 14:21:16 Imaging Results None recorded. Procedure Notes None recorded. Medical Equipment None Reported. Allergies No known drug allergies Medications Name Sig Start Date Stop Date Status Note LastModified by Organization Details LastModified Time cyclobenzap rine 10 mg tablet 06/23 completed Not Available Not Available Not Available furosemide 40 mg tablet active Not Available Not Available Not Available fluconazole 100 mg tablet active Not Available Not Available Not Available ascorbic acid (vitamin C) 1,000 mg tablet 06/23 completed Not Available Not Available Not Available prednisone 10 mg tablet 06/23 completed Not Available Not Available Not Available gabapentin 600 mg tablet 06/23 completed Not Available Not Available Not Available doxycycline hyclate 100 mg capsule active Not Available Not Available N ot Available propranolol 80 mg tablet 06/23 completed Not Available Not Available Not Available Vitamin B-6 25 mg tablet 06/23 completed Not Available Not Available Not Available atorvastati n 20 mg tablet 06/23 completed Not Available Not Available Not Available perphenazin e 2 mg tablet 06/23 completed Not Available Not Available Not Available clindamycin HCl 300 mg capsule active Not Available Not Available Not Available albuterol sulfate 2.5 mg/3 mL (0.083 %) solution for nebulizatio n active Not Available Not Available Not Available trazodone 50 mg tablet active Not Available Not Available Not Available tizanidine 4 mg tablet TAKE 1 TABLET BY MOUTH EVERY 8 HOURS NEEDED FOR MUSCLE SPASM active Not Available Not Available No t Available benzonatate 200 mg capsule active Not Available Not Available Not Available sumatriptan 100 mg tablet active Not Available Not Available Not Available minocycline 100 mg capsule active Not Available Not Available Not Available meloxicam 15 mg tablet Take 1 tablet every day by oral route. active Not Available Not Available No t Available metronidazo le 0.75 % (37.5 mg/5 gram) vaginal gel 06/23 completed Not Available Not Available Not Available prednisone 20 mg tablet active Not Available Not Available Not Available clindamycin HCl 150 mg capsule active Not Available Not Available Not Available fexofenadin e 180 mg tablet active Not Available Not Available Not Available sulfamethox azole 800 mg-trimetho prim 160 mg tablet active Not Available Not Available Not Available aspirin 81 mg tablet,jg yed release active Not Available Not Available Not Available quetiapine 100 mg tablet active Not Available Not Available Not Available spironolact one 25 mg tablet active Not Available Not Available Not Available lithium carbonate ER 450 mg tablet,exte nded release active Not Available Not Available Not Available lamotrigine 25 mg tablet active Not Available Not Available Not Available amitriptyli ne 25 mg tablet 06/23 completed Not Available Not Available Not Available IBU 600 mg tablet active Not Available Not Available Not Available gabapentin 800 mg tablet active Not Available Not Available Not Available dextroamphe tamine-amph etamine ER 20 mg 24hr capsule,ext end release active Not Available Not Available Not Available OneTouch Ultra Test strips TEST BLOOD SUGAR ONCE DAILY 06/23 completed Not Available Not Available Not Available Kenalog 10 mg/mL suspension for injection Take 20 mg by injection route. 08/08 completed Not Available Not Available Not Available baclofen 10 mg tablet active Not Available Not Available No t Available levothyroxi ne 50 mcg tablet active Not Available Not Available Not Available hydrocodone 7.5 mg-acetamin ophen 325 mg tablet active Not Available Not Available No t Available cephalexin 500 mg capsule active Not Available Not Available Not Available mirtazapine 30 mg tablet active Not Available Not Available Not Available trazodone 150 mg tablet active Not Available Not Available Not Available nystatin 100,000 unit/gram topical cream active Not Available Not Available Not Available fluorometho lone 0.1 % eye drops,suspe nsion active Not Available Not Available Not Available lidocaine 5 % topical patch active Not Available Not Available Not Available perphenazin e 4 mg tablet active Not Available Not Available Not Available indomethaci n 50 mg capsule active Not Available Not Available Not Available aspirin 81 mg chewable tablet 06/23 completed Not Available Not Available Not Available dextroamphe tamine-amph etamine ER 10 mg 24hr capsule,ext end release active Not Available Not Available Not Available mupirocin 2 % topical ointment active Not Available Not Available Not Available furosemide 20 mg tablet active Not Available Not Available Not Available alprazolam 2 mg tablet active Not Available Not Available Not Available mirtazapine 15 mg tablet active Not Available Not Available Not Available metoprolol succinate ER 25 mg tablet,exte nded release 24 hr active Not Available Not Available Not Available nystatin 100,000 unit/gram topical powder active Not Available Not Available Not Available methylpredn isolone 4 mg tablets in a dose pack Take 1 dose pk by oral route. active Not Available Not Available No t Available propranolol 20 mg tablet 06/23 completed Not Available Not Available Not Available ketoconazol e 2 % topical cream active Not Available Not Available Not Available ondansetron 4 mg disintegrat ing tablet 06/23 completed Not Available Not Available Not Available cefdinir 300 mg capsule active Not Available Not Available Not Available lithium carbonate 300 mg tablet active Not Available Not Available Not Available fluticasone propionate 50 mcg/actuati on nasal spray,suspe nsion active Not Available Not Available Not Available clotrimazol e 1 % topical cream active Not Available Not Available Not Available doxycycline hyclate 100 mg tablet active Not Available Not Available No t Available spironolact one 50 mg tablet active Not Available Not Available Not Available diazepam 5 mg tablet 06/23 completed Not Available Not Available Not Available amoxicillin 875 mg-potassiu m clavulanate 125 mg tablet active Not Available Not Available Not Available Ventolin HFA 90 mcg/actuati on aerosol inhaler active Not Available Not Available Not Available metaxalone 800 mg tablet 06/23 completed Not Available Not Available Not Available atomoxetine 25 mg capsule active Not Available Not Available Not Available atomoxetine 40 mg capsule 06/23 completed Not Available Not Available Not Available atomoxetine 60 mg capsule active Not Available Not Available Not Available bupivacaine (PF) 0.5 % (5 mg/mL) injection solution Take 2 mL by injection route. 08/08 completed Not Available Not Available Not Available rosuvastati n 20 mg tablet active Not Available Not Available Not Available bupropion HCl XL 150 mg 24 hr tablet, extended release 06/23 completed Not Available Not Available Not Available nitrofurant oin monohydrate /macrocryst als 100 mg capsule 06/23 completed Not Available Not Available Not Available atomoxetine 80 mg capsule active Not Available Not Available Not Available paliperidon e ER 9 mg tablet,exte nded release 24 hr 06/23 completed Not Available Not Available Not Available paliperidon e ER 6 mg tablet,exte nded release 24 hr 06/23 completed Not Available Not Available Not Available paliperidon e ER 3 mg tablet,exte nded release 24 hr 06/23 completed Not Available Not Available Not Available levocetiriz ine 5 mg tablet 06/23 completed Not Available Not Available Not Available oxycodone 10 mg tablet 06/23 completed Not Available Not Available Not Available diclofenac 1 % topical gel APPLY 2 GRAMS TO THE AFFECTED AREA(S) BY TOPICAL ROUTE 4 TIMES PER DAY active Not Available Not Available No t Available cholecalcif xu (vitamin D3) 50 mcg (2,000 unit) capsule 06/23 completed Not Available Not Available Not Available GaviLyte-G 236 gram-22.74 gram-6.74 gram-5.86 gram oral solution 06/23 completed Not Available Not Available Not Available Invega Sustenna 156 mg/mL intramuscul ar syringe 06/23 completed Not Available Not Available Not Available Invega Sustenna 234 mg/1.5 mL intramuscul ar syringe active Not Available Not Available N ot Available paliperidon e ER 1.5 mg tablet,exte nded release 24 hr active Not Available Not Available Not Available lurasidone 40 mg tablet active Not Available Not Available Not Available clonidine HCl ER 0.1 mg tablet,exte nded release,12 hr active Not Available Not Available Not Available lurasidone 80 mg tablet active Not Available Not Available Not Available 28 mg iron-800 mcg tablet active Not Available Not Available N ot Available Invega Trinza 819 mg/2.63 mL intramuscul ar syringe active Not Available Not Available N ot Available naloxone 4 mg/actuatio n nasal spray active Not Available Not Available Not Available Vraylar 1.5 mg capsule 06/23 completed Not Available Not Available Not Available Trintellix 5 mg tablet active Not Available Not Available Not Available Trintellix 10 mg tablet active Not Available Not Available Not Available magnesium 400 mg (as magnesium oxide) tablet 06/23 completed Not Available Not Available Not Available OneTouch Ultra2 Meter USE DIRECTED 06/23 completed Not Available Not Available Not Available OneTouch Delica Plus Lancet 30 gauge TEST BLOOD SUGAR ONCE DAILY 06/23 completed Not Available Not Available Not Available [facility] 75 mg disintegrat ing tablet active Not Available Not Available N ot Available Auvelity 45 mg-105 mg tablet, extended release 06/23 completed Not Available Not Available Not Available Vitals None Recorded Social History Question Answer Notes LastModified by Organizat ion Details LastModified Time Tobacco Smoking Status Current Every Day Smoker Pamela Chen null, [place] - [facility] - [place] & [place] 06/26/2023 14:21:10 Do You Have An Advance Directive? No [email or web address] Information not available 06/26/2023 Are You Blind Or Do You Have Difficulty Seeing? No Information not available 06/26/2023 What Was The Date Of Your Most Recent Tobacco Screening? 06/23/2023 Information not available 06/26/2023 Are You Passively Exposed To Smoke? Yes Information not available 06/26/2023 How Much Tobacco Do You Smoke? 0.5 PPD Information not available 06/26/2023 How Many Years Have You Smoked Tobacco? 26 Information not available 06/26/2023 Sex: Unknown Functional Status Question Answer Note LastModified by Organizat ion Details LastModified Time Do you use any illicit or recreational drugs? No Information not available 06/26/2023 What is your level of alcohol consumption? None Information not available 06/26/2023 Do you or have you ever used smokeless tobacco? Never used smokeless tobacco Information not available 06/26/2023 What is your exercise level? None Information not available 06/26/2023 Mental Status Question Answer Note LastModified by Organization D etails LastModified Time Do you feel stressed (tense, restless, nervous, or anxious, or unable to sleep at night)? [id number] Information not available 06/26/2023 Family History Nothing Reported. Medical History Condition Response Obesity Y Gout Y Arthritis Y Headaches Y Back Problems Y Gynecological History Statement/Question Response Menses Monthly N Abnormal Pap N Age at Menarche 10 Date of LMP 10/21/2021 Obstetrics History GPAL:G 0 P 0 0 0 0 Immunizations Vaccine Type Date Status Note Provider Nam e and Address Organization Details Recorded Time Influenza, split virus, quadrivalent, preservative 1 completed Fauzia velarde, [place] - [facility] - [facility] 08/08/2023 09:29:02 Influenza, recombinant, quadrivalent, PF 3 completed Fauzia velarde, [place] - [facility] - [facility] 08/08/2023 09:29:02 COVID-19, mRNA, LNP-S, PF, 100 mcg/0.5mL dose or 50 mcg/0.25mL dose 1 completed RA Riddle LPRESHMA [facility] & [place] 08/08/2023 09:29:02 COVID-19, mRNA, LNP-S, PF, 100 mcg/0.5mL dose or 50 mcg/0.25mL dose completed RA Riddle LPNT [facility] & [place] 08/08/2023 09:29:02 Past Encounters Encounter ID Performer Location Encounter Start Date Encounter Closed Date Diagnosis/Indication Diagnosis SNOMED-CT Code Diagnosis ICD10 Code Diagnosis Note [id number] RODY MASTERS NP [facility] [place] [address] 06/26/2023 14:14:14 06/26/2023 14:54:19 Pain of right knee joint 8253240130 75454 M25.561 Arthritis of right knee 3784993308 662426 M13.861 [id number] [facility] [place] [address] 08/08/2023 09:15:32 08/08/2023 09:56:09 Pain of right knee joint 5316159379 88857 M25.561 Arthritis of right knee 4688518887 209263 M13.861 Sprain of right ankle 11 20474409 1351992 S93.401A [id number] [facility] [address] 09/05/2023 09:05:38 09/05/2023 09:43:31 Pain of right knee joint 6775836194 00579 M25.561 Arthritis of right knee 4585502484 901516 M13.861 Sprain of right ankle 11 45534562 3411106 S93.401A [id number] MD RAJAT Perez [place] [address] 03/13/2024 09:19:55 03/13/2024 10:37:02 Pain of left knee joint 9942660537 93881 M25.562 Osteoarthr itis of left knee joint 0911070838 20088 M17.12 [id number] DO RAJAT [facility] [address] [place] [address] 04/08/2024 09:28:45 04/08/2024 10:42:00 Pain of left knee joint 1484309930 25446 M25.562 Tear of me dial meniscus of knee 893152234 S83.232A [id number] DO RAJAT [facility] [address] [place] [address] 05/05/2024 09:43:42 05/05/2024 10:48:50 Osteoarthritis of left knee joint 7276959946 37466 M17.12 Health Concerns Section Related Observation LastModified by Organization Detai ls LastModified Time None Recorded Concern Status LastModified by Organization Details LastModified Time None Recorded Advance Directives Directive N: Payers Insurance Date Sequence Insurance Name Policy Number Policy Cunningham Covered Member ID Cunningham Member ID Guarantor Name 05/12/2024 1 [facility] (MEDICAID REPLACEMENT - HMO) Juliana Olguin [id number] Juliana Olguin Notes Date Note Type Note Provider Name and Address Organization Details Recorded Time 08/08/2023 text/html Pt is here for f /u of her rt knee pain. She reports the inj and mobic have been effective. She is 95% better. She reports on 08/03/2023 she slipped and fell injuring her rt ankle. She does have a medial malleolus fx. She had Xrays at [facility]-E7[facility] EARNEST MACKEY[address], [place], [address], [place] - [facility] & [place] 08/09/2023 07:58:11 09/05/2023 text/html Pt is here for f /u of her rt ankle. She reports she continues to have significant rt ankle pain. She is not wearing her boot. She works at [email or web address]. We are getting new Xrays of the ankle R/T increased pain. She reports her rt knee inj was effective-E7SF EARNEST MACKEY[address], [place], [address], [facility] - NT [facility] & [place] 09/05/2023 13:00:34 03/13/2024 text/html Pt is here for l eft knee pain with onset of about 2 months from February 2024. She reports pain with ambulation and flexing the knee. We are getting Xrays today-E1SF Jeff Costa MD [address] [place] [address],[address], [place], [address], [place] - [facility] - [place] & [place] 03/14/2024 09:53:58 04/08/2024 text/html Patient presents in office for follow up effectiveness of left knee injection given 03/13/24. States injection was ineffective, symptoms unchanged. [id number] EARNEST MACKEY DO [address] [place] [address] Drive,[address], [place], [address], [place] - [facility] [place] & [place] 04/09/2024 09:12:39 05/05/2024 text/html MRI results of l eft knee.MRI knee left W/O cont done @ [facility] on 04.15.24:1. Mild osteoarthritis of the medial knee joint compartment with trace joint effusion.2. Nonspecific superficial edema anterior to the patella and patellar tendon Patient states pain is worse, mostly bothering her about patellofemoral joint. Taking Ibu and Tyl. 03.13.24 left knee injection- states it didn't give any relief. [id number] EARNEST MACKEY DO [address] [place] [address] Drive,[address], [place], [address], [place] [facility] [place] & [place] 05/05/2024 12:17:43 OBGyn Episode No OBEpisode recorded.
--- OUTSIDE RECORDS SUMMARY | 2024-12-26 23:22 | XMS_ITS | Encounter Summary ---
Author Organization Healthcare Address [address] [place] [address] Care Team Providers Care Historic Sites Supervisor Name Role Phone Pcp, No Primary Care Provider Unavailabl e Bren Lira DMD Unavailable Eugene Holloway Unavailable Unavailabl e Encounter Details Date Type Department Care Team (Latest Contact Info) Description 11/09/2024 Travel Social History Tobacco Use Types Packs/Day Years [...] 12/31/2024 9:00 AM EDT Office Visit [facility] [address] [phone] documented as of this encounter Visit Diagnoses Not on filedocumented in this encounter Care Teams Historic Sites Supervisor Relationship Specialty Start Date End Date Pcp, No [address] [place] [address] PCP - General Family Medicine 09/05/24 Bren Lira DMD [address] [phone] Dentist 09/18/24 Eugene Holloway Dental Student Dental Patrol Lady 09/18/24 documented as of this encounter
--- OUTSIDE RECORDS SUMMARY | 2024-12-26 23:22 | XMS_ITS | Encounter Summary ---
Author Organization Healthcare Address [address] [place] [address] Care Team Providers Care Community Aide Name Role Phone Pcp, No Primary Care Provider Unavailabl e Bren Lira DMD Unavailable Eugene Holloway Unavailable Unavailabl e Encounter Details Date Type Department Care Team (Late st Contact Info) Description 12/26/2024 Telephone [facility] [address] [phone] Dental, Surgeon, [address] [place], [place] [id number] Social History Tobacco Use Types Packs/Day Years [...] on file documented as of this encounter Miscellaneous Notes * Telephone Encounter - Kathryn Knight - 12/26/2024 11:02 AM EDT Called to verify if pt had new insurance. She said she now has [employer] through her husbands work and would bring info with her to appt. documented in this encounter Plan of Treatment Upcoming Encounters Date Type Department Care Team (Late st Contact Info) Description 12/31/2024 9:00 AM EDT Office Visit [facility] [address] [phone] documented as of this encounter Visit Diagnoses Not on filedocumented in this encounter Care Teams Community Aide Relationship Specialty Start Date End Date Pcp, No [address] [place] [address] PCP - General Family Medicine 09/05/24 Bren Lira, DMD [address] [phone] Dentist 09/18/24 Eugene Holloway Dental Student Dental Policy Loan Calculator 09/18/24 documented as of this encounter
--- OUTSIDE RECORDS SUMMARY | 2024-12-26 23:22 | XMS_ITS | Data Portability ---
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 She reports pain has been present since 2002 related to . Has been slowly progressive since this time. States that all this occurred while she was living in [place]. At that time she states that she was seeing pain management in [place] undergoing treatment with a combination of medications and injections. States that she also saw surgeon in [place] who recommended lumbar fusion. Before they would consider this she had to lose weight. She had gastric bypass and lost weight however shortly following this she became and put weight back on so she was not able to have surgery. After the of her child she reports that she moved back to this area secondary to her family being from this area. Since being back in this area she reports that she is looking to have somebody else take over her pain management. At first her family physician sent her to a pain management clinic in [place] however the only thing they offered were injections so she declined. She states previously injections have been extremely painful and have not helped her so she did not return. Originally she was told the same at our clinic so she declined referral here as well however recently changed her mind and made an appointment today. She still reports that she is not interested in injections despite being told from this office that she would be injection management only. She has not had any imaging or treatment since moving to this area from its bed. She does not have any of her records with her. I have no records to review regarding previous history, imaging. CURRENT SYMPTOMS: She reports pain across low back with radiation down the back and sides of both legs down to the knees. Occasionally the right will go down into the calf. States the pain is a constant aching, burning, throbbing, sharp that is aggravated with activity including standing walking bending and lifting. Going up and down stairs. Cold weather and damp weather. No current weakness or numbness of the legs. Denies any bowel or bladder incontinence. PRIOR TREATMENTS: CONSERVATIVE: She reports physical therapy previously in [place] without relief. INTERVENTIONAL: States injections in [place] only made her symptoms worse. SURGICAL: None. States that she saw a surgeon in [place] who recommended fusion but would not proceed because she needed to lose weight. IMAGING/LABS: None to review RISK FACTORS: Smoker: Yes Employed: No Diabetic: Denies Anticoagulated: Denies RX: None from this office SCREENING: CHARY/OARS/INSPE CT was reviewed and is appropriate Preliminary UDS today is as expected I will not need to send this for LCMS confirmation for a baseline since the patient is new to the practice. Based on above screening, co-morbidities, MED, and my clinical judgement: I consider this patient to be moderate risk for abuse/diversion. ORT: 4 PHQ-9: 0 DISCUSSION: I discussed treatment options with the patient. I would not recommend opioid management or controlled medications for this patient. I discussed NSAIDs, muscle relaxants, multiple other nonopioid medications. She reports having tried all of these without relief. I discussed with her that due to her insurance that she would be required to start with lumbar x-ray and physical therapy before moving forward with lumbar MRI. However I also discussed with her that I do not see any reason to move forward with imaging if she is refusing interventional and she does not want surgery. She has already failed physical therapy and other non opioid medications. If she is not interested in injections that I did not see if I have any other therapies to offer that she has not already tried and failed. Discussed with her that I am going to move forward with x-ray and physical therapy if she would like to reconsider injections at a future date. PLAN: 1. Referral for physical therapy. 2. Order for lumbar x-ray Discussed new orders/changes with patient. Patient expressed agreement and full understanding of above plan. All questions answered in full. Follow-up in 30 days. 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 The electronic translation of spoken language may permit erroneous or at times nonsensical words of phrases to be inadvertently transcribed; Although I have reviewed the note for such errors, some may still exist. [email or web address] Not available 11/23/2020 10:51:32 12/21/2020 12/21/2020 INTERVAL HX: Patient is a 35-year-old female that is here for her first follow-up visit regarding chronic low back pain and bilateral leg pain. She feels that the pain she has is getting worse. She primarily has bilateral paraspinal pain that radiates down bilateral lower extremities to the foot. Unfortunately her pain does not allow for her to exercise or participate in recreational activities on a regular basis. We had referred the patient for physical therapy however she has not heard back from the therapy office to begin this. I have encouraged her to work through home exercise program to stay as as active as she can until she does hear from them. At the initial visit we did order a lumbar x-ray which we reviewed today HX: Low back and bilateral leg pain 35-year-old female new patient referral for chronic low back and bilateral leg pain. She reports pain has been present since 2002 related to . Has been slowly progressive since this time. States that all this occurred while she was living in [place]. At that time she states that she was seeing pain management in [place] undergoing treatment with a combination of medications and injections. States that she also saw surgeon in [place] who recommended lumbar fusion. Before they would consider this she had to lose weight. She had gastric bypass and lost weight however shortly following this she became and put weight back on so she was not able to have surgery. After the of her child she reports that she moved back to this area secondary to her family being from this area. Since being back in this area she reports that she is looking to have somebody else take over her pain management. At first her family physician sent her to a pain management clinic in [place] however the only thing they offered were injections so she declined. She states previously injections have been extremely painful and have not helped her so she did not return. Originally she was told the same at our clinic so she declined referral here as well however recently changed her mind and made an appointment today. She still reports that she is not interested in injections despite being told from this office that she would be injection management only. She has not had any imaging or treatment since moving to this area from its bed. She does not have any of her records with her. I have no records to review regarding previous history, imaging. PRIOR TREATMENTS: CONSERVATIVE: She reports physical therapy previously in [place] without relief. INTERVENTIONAL: States injections in [place] only made her symptoms worse. SURGICAL: None. States that she saw a surgeon in [place] who recommended fusion but would not proceed because she needed to lose weight. IMAGING/LABS: 5 view lumbar x-ray 11/24/2020 Findings: There are 5 lumbar type vertebral bodies with straightening of the lumbar lordosis. The vertebral body heights and spinal alignment are intact. There is moderate degenerative disc disease at L5/S1. The remaining disc heights are well-preserved. There is no pars defect. Incidentally there is an IUD in place. RISK FACTORS: Smoker: Yes Employed: No Diabetic: Denies Anticoagulated: Denies RX: None from this office SCREENING: CHARY/OARS/INSPE CT was reviewed and is appropriate No UDS was performed today as the patient is not prescribed medications Based on above screening, co-morbidities, MED, and my clinical judgement: I consider this patient to be moderate risk for abuse/diversion. ORT: 4 PHQ-9: 0 DISCUSSION: The patient's x-ray was discussed with her today. Straightening of the lumbar lordosis is often seen with muscle spasm and is possible she could have some reasonably significant pain with the degenerative disc disease. She states to me that she had physical therapy before while in [place] and was not helpful. I have suggested to her that continued core strengthening exercises will be of value even if pain continues. When she first met with Dr. Jain opioid management or controlled substances were not recommended. Have suggested to her that there are a number of nonopioid-based medications, including various NSAIDs and muscle relaxers and some antidepressant medications that can be helpful. These are what will focus our attention on trialing first after therapy. I do feel that she may be a candidate for interventional procedures MBB/RFA. This is something we can consider after finishing her therapy. PLAN: 1. Starting continue to work through formal physical therapy and an HEP. 2. After review of her x-ray and physical exam findings I do think she would be a candidate for MBB RFA interventional procedures. 3. Nonnarcotic medication may be instituted after she works through therapy. Discussed new orders/changes with patient. Patient expressed agreement and full understanding of above plan. All questions answered in full. Follow-up in 30 days. [email or web address] Not available 12/21/2020 11:33:02 Plan of Treatment Reminders Order Date Submit Date Provider Last Modified By Organization Details Last Modified Time Details Appointments None recorded. Lab drug screen, urine 2020 021 [email or web address] [place], [address], [address], [place], [address], 10:52:30 Referral physical therapist referral [address] (Centralized Scheduling), [address] [place] [address] [place], [address], 12:12:43 Procedures None recorded. Surgeries None recorded. Imaging XR, lumbar spine 2020 021 [facility], [address] [place] [address] [place], [address], 15:22:45 Medication Orders None recorded. Patient TargetsNo targets recorded. Patient InstructionsNo instructions recorded. Reason for Referral Physical Therapist Referral for Degeneration of lumbar intervertebral disc Referring Physician: Rios Jain, Pain Management, Encounter Date: 11/23/2020 Results Created Date Observation Date Name Description Value Unit Range Abnormal Flag Note LastModifiedBy Organization Detail LastModifiedTime 11/24/19 21 11/23/2020 drug scree n, urine THC: negati ve Not Available [facility] [address], [place], [address], 11/23/2020 10:15:03 11/24/19 21 11/23/2020 drug scree n, urine Buprenorphin e: negati ve Not Available [place] [address], [place], [address], 11/23/2020 10:15:03 11/24/19 21 11/23/2020 drug scree n, urine TCA: negati ve Not Available [place] [address], [place], [id number], 11/23/2020 10:15:03 11/24/19 21 11/23/2020 drug scree n, urine Barbiturates : negati ve Not Available [place] [address], [place], [phone], 11/23/2020 10:15:03 11/24/19 21 11/23/2020 drug scree n, urine Benzodiazepi joselyn: negati ve Not Available [facility] [address], [place], [address], 11/23/2020 10:15:03 11/24/19 21 11/23/2020 drug scree n, urine Methadone: negati ve Not Available [place] [address], [place], [phone], 11/23/2020 10:15:03 11/24/19 21 11/23/2020 drug scree n, urine Amphetamines : negati ve Not Available [place] [address], [place], [address], 11/23/2020 10:15:03 11/24/19 21 11/23/2020 drug scree n, urine Morphine/Opi ates: negati ve Not Available [place] [address], [place], [address], 11/23/2020 10:15:03 11/24/19 21 11/23/2020 drug scree n, urine Oxycodone: negati ve Not Available [place] [address], [place], [address], 11/23/2020 10:15:03 11/24/19 21 11/23/2020 drug scree n, urine MDMA: negati ve Not Available [facility] [address], [place], [address], 11/23/2020 10:15:03 11/24/19 21 11/23/2020 drug scree n, urine Cocaine: negati ve Not Available [facility] [address], [place], [address], 11/23/2020 10:15:03 11/24/19 21 11/23/2020 drug scree n, urine Methamphetam ine: negati ve Not Available [facility] [address], [place], [address], 11/23/2020 10:15:03 12/16/19 21 11/24/2020 XR, lumba r spine No observ ation record ed. [facility] [place] [address] , [place], [address], 12/15/2020 15:50:06 Result Notes None recorded. Problems Name Problem SNOMED Code Status Onset Date Resolution Date Notes Provider Name and Address Organization Details Recorded Time Degeneration of lumbar intervertebral disc 46154215 Active 2020 Mei velarde [facility] 10:32:50 Problem Notes None recorded. Procedures Surgical History Date Name Laterality Status Provider Name and Address Organization Details Recorded Time ligation of fallopian tube completed Samra Partida [facility] 12/21/2020 11:06:57 General Surgery completed Mei Wang [facility] 11/23/2020 10:20:49 Imaging Results None recorded. Procedure Notes None recorded. Medical Equipment None Reported. Allergies No known drug allergies Medications Name Sig Start Date Stop Date Status Note LastModified by Organization Details LastModified Time fluoxetine 40 mg capsule active Not Available Not Available N ot Available cyclobenzaprine 10 mg tablet active Not Available Not Available Not Available metformin 500 mg tablet active Not Available Not Available No t Available prednisone 10 mg tablet 12/21 completed Not Available Not Available Not Available cefuroxime axetil 250 mg tablet active Not Available Not Available Not Available fluconazole 150 mg tablet 12/21 completed Not Available Not Available Not Available hydrocodone 5 mg-acetaminophe n 325 mg tablet active Not Available Not Availa ble Not Available Nystop 100,000 unit/gram topical powder active Not Available Not Availab le Not Available ondansetron HCl 8 mg tablet active Not Available Not Available Not Available prednisone 20 mg tablet active Not Available Not Available No t Available sumatriptan 50 mg tablet active Not Available Not Available No t Available hydroxyzine pamoate 50 mg capsule 11/23 completed Not Available Not Available Not Available ciprofloxacin 500 mg tablet active Not Available Not Availabl e Not Available sulfamethoxazol e 800 mg-trimethoprim 160 mg tablet 11/23 completed Not Available Not Available Not Available hydrocodone 10 mg-acetaminophe n 325 mg tablet active Not Available Not Availa ble Not Available cephalexin 500 mg capsule 11/23 completed Not Available Not Available Not Available clotrimazole-be tamethasone 1 %-0.05 % topical cream active Not Available Not Availabl e Not Available metoprolol succinate ER 25 mg tablet,extended release 24 hr active Not Available Not Availabl e Not Available ibuprofen 600 mg tablet 12/21 completed Not Available Not Available Not Available methylprednisol one 4 mg tablets in a dose pack 11/23 completed Not Available Not Available Not Available fluoxetine 20 mg capsule active Takes both to make 60 mg Not Available Not Available Not Available fluticasone propionate 50 mcg/actuation nasal spray,suspensio n active Not Available Not Available Not Available Ventolin HFA 90 mcg/actuation aerosol inhaler active Not Available Not Availa ble Not Available Vitals Date Recorded Body height Body mass index (BMI) Body weight Provider Name and Address Organization Details Last Updated DateTime 11/23/2020 177.8 cm 41 kg/m2 823578.42 g Mei Garciaer [facility] 11/23/2020 10:17:39 Date Recorded Body height Provider Name an d Address Organization Details Last Updated DateTime 12/21/2020 177.8 cm Samra Partida [place] [facility] 12/21/2020 11:05:41 Social History Question Answer Notes LastModified by Organizat ion Details LastModified Time Tobacco Smoking Status Current Every Day Smoker Mei Wang [facility] - [facility] 11/23/2020 10:19:59 What Is Your Level Of Caffeine Consumption? Heavy [email or web address] Information not available 11/23/2020 How Much Tobacco Do You Chew? None [email or web address] Information not available 11/23/2020 Are You Deaf Or Do You Have Serious Difficulty Hearing? No [email or web address] Information not available 11/23/2020 Which Illicit Or Recreational Drugs Have You Used? DENIES [email or web address] Information not available 11/23/2020 Education 12 [email or web address] Information no t available 11/23/2020 Hard Of Hearing Or Deaf In One Or Both Ears? No Information not available 11/23/2020 Prescription Drug Abuse No [email or web address] Information not available 11/23/2020 Disability No [email or web address] Information no t available 11/23/2020 History Of Sexual Abuse No [email or web address] Information not available 11/23/2020 Marital Status [email or web address] Informatio n not available 11/23/2020 What Was The Date Of Your Most Recent Tobacco Screening? 12/21/2020 [email or web address] Information not available 12/21/2020 At What Age Did You Start Smoking Tobacco? 12 [email or web address] Information not available 11/23/2020 How Much Tobacco Do You Smoke? 2 PPW [email or web address] Information not available 11/23/2020 General Stress Level High [email or web address] Information not available 11/23/2020 On What Date Was Tobacco Cessation Counseling Provided? 12/21/2020 [email or web address] Information not available 12/21/2020 How Many Years Have You Smoked Tobacco? 23 [email or web address] Information not available 11/23/2020 Do You Have Difficulty Walking Or Climbing Stairs? Yes [email or web address] Information not available 11/23/2020 Sex: Unknown Functional Status Question Answer Note LastModified by Organizat ion Details LastModified Time What is your level of alcohol consumption? Occasional [email or web address] Information not available 11/23/2020 Do you or have you ever used smokeless tobacco? Never used smokeless tobacco [email or web address] Information not available 11/23/2020 Are you able to walk? YESWOREST [email or web address] Information not available 11/23/2020 Do you have difficulty doing errands alone? 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 Yes [email or web address] Information not available 11/23/2020 Do you or have you ever used e-cigarettes or vape? Never used electronic cigarettes [email or web address] Information not available 11/23/2020 What is your exercise level? Moderate [email or web address] Information not available 11/23/2020 Mental Status Question Answer Note LastModified by Organization D etails LastModified Time Do you have difficulty concentrating, remembering or making decisions? Yes [email or web address] Information no t available 11/23/2020 Family History Relationship Description Onset Age of this Age Resolved Age Notes LastModified by Organization Details LastModified Time Paternal Grandfather Heart disease [email or web address] Not available 11/23 10:17:51 Maternal Grandmother Hypertensive disorder [email or web address] Not available 11/23 10:17:51 Maternal Grandmother Heart disease [email or web address] Not available 11/23 10:17:51 Mother Diabetes mellitus [email or web address] Not available 11/23 10:17:51 Mother Fibromyalgia [email or web address] Not augie ilable 11/23/2020 10:17:51 Mother Heart disease [email or web address] Not available 11/23 10:17:51 Mother Mental disorder Not available 11/23 10:17:51 Mother Hypertensive disorder [email or web address] Not available 11/23 10:17:51 Mother Rheumatoid arthritis [email or web address] Not available 11/23 10:17:51 Medical History Condition Response Bipolar Disease N Coronary Artery Disease N Gout Y Seizure Disorder N Atrial Fibrillation N Thyroid Disease N Head Trauma/Injury N Hernia N Depression Y COPD N Anxiety Disorder Y Acid Reflux (GERD) N Cancer N Stroke N Skin Disorder N High Cholesterol Y Liver Disease N Rheumatoid Arthritis N Headaches Y Fibromyalgia N Kidney Disease N Autoimmune Disease Y Osteoarthritis Y Neurosurgery N DVT N Peptic Ulcer Disease N Anemia Y Heart Attack (ME) Y Diabetes Y Cardiomyopathy N Bleeding Disorder N CHF N AIDS/HIV N Inflammatory Bowel Disease N Dementia N Asthma N Substance Abuse N Sleep Apnea N Hepatitis N Heart Disease N Pulmonary Embolism N Chronic Low Back Pain Y Hypertension N Osteoporosis N Gynecological HistoryNo gynecological history recorded. Obstetrics History GPAL:G 0 P 0 0 0 0 Past Encounters Encounter ID Performer Location Encounter Start Date Encounter Closed Date Diagnosis/Indication Diagnosis SNOMED-CT Code Diagnosis ICD10 Code Diagnosis Note [id number] Rios Jain MD [place] [address] [address] 11/23/2020 09:38:35 11/23/2020 10:42:34 Long-term drug therapy 153925928 Z79.899 Degenerati on of lumbar intervertebral disc 81666187 M51.36 [id number] Rios Jain MD [place] [address] [address] 12/21/2020 10:52:18 12/21/2020 11:17:14 Degeneration of lumbar intervertebral disc 41173633 M51.36 Long-term drug therapy 687479580 Z79.899 Health Concerns Section Related Observation LastModified by Organization Detai ls LastModified Time None Recorded Concern Status LastModified by Organization Details LastModified Time None Recorded Advance Directives Directive None Recorded Payers Insurance Date Sequence Insurance Name Policy Number Policy Cunningham Covered Member ID Cunningham Member ID Guarantor Name 02/19/2021 1 [facility] (MEDICAID REPLACEMENT - HMO) Juliana Olguin [id number] Juliana Olguin Notes Date Note Type Note Provider Name and Address Organization Details Recorded Time 11/23/2020 text/html Low back painReported bypatient.Onset:frederick e of onset: (01/2003) Location:bilateral paraspinal; radiating down the bilateral lower extremities to the feet Context:overuse Quality:aching; burning; throbbing; sharp Severity:current pain level: 6/10; average pain level: 6/10; worst pain level: 10/10 Alleviating Factors:nothing helps Aggravating Factors:sitting; standing; walking; bending/squatting; weightbearing; going from sit to stand; upstairs; downstairs; cold weather; damp weather Timing:constant Associated Symptoms:no weakness; no numbness; no tingling; no pain radiating down lower extremities; no swelling; no popping/clicking; no bowel incontinence; no urinary retention; no urinary incontinence; no perineal paresthesia/anesthe farhana Previous Lumbar Surgery:none Previous Injections:lumbar ESIs: no relief Previous physical therapy:currently in PT:; completed all recommended PT visits; more than 6weeks of PT completed; dates:; response to therapy: no improvement in pain/symptoms Daily Activities:Living independently.; Able to bathe/groom without assistance.; Able to complete family court justice without much difficulty.; Walking without assistance or significant difficulty; Working without restriction.;Diffic ulty exercising on a regular basis secondary to pain.;Difficulty participating in recreation on a regular basis secondary to pain. Rios Jain MD [address] [place] [address], [address] 11/23/2020 10:53:00 12/21/2020 text/html Follow-up (meds & injections)Reported bypatient.Improveme nt:Pain is getting worse.; Reports she had a tubal ligation 12/15/2020 Has not attended PT yet as she has not heard from them Pain Scores:Average pain- 8/10; Current pain- 9/10; Worst pain- 10/10 Recent Injections:Pain relief from injections- % lasting for ; Improvement in ADLs-; None Current Analgesics:We do not RX Adverse Reactions:No nausea.; No vomiting.; No constipation.; No itching.; No sedation.; No respiratory depression.; No sexual dysfunction. Activities of Daily Living (ADL):Living independently.; Able to bathe/groom without assistance.; Able to complete family court justice.; Walking without assistance.; Working.; Exercising. Neuroflow:Not UtilizingLow back painReported bypatient.Onset:frederick e of onset: (01/2003) Location:bilateral paraspinal; radiating down the bilateral lower extremities to the feet Context:overuse Quality:aching; burning; throbbing; sharp Severity:current pain level: 9/10; average pain level: 6/10; worst pain level: 10/10 Alleviating Factors:nothing helps Aggravating Factors:sitting; standing; walking; bending/squatting; weightbearing; going from sit to stand; upstairs; downstairs; cold weather; damp weather Timing:constant Associated Symptoms:no weakness; no numbness; no tingling; no pain radiating down lower extremities; no swelling; no popping/clicking; no bowel incontinence; no urinary retention; no urinary incontinence; no perineal paresthesia/anesthe farhana Prior Imaging:x-ray Previous Lumbar Surgery:none Previous Injections:lumbar ESIs: no relief Previous physical therapy:currently in PT:; completed all recommended PT visits; more than 6weeks of PT completed; dates:; response to therapy: no improvement in pain/symptoms Daily Activities:Living independently.; Able to bathe/groom without assistance.; Able to complete family court justice without much difficulty.; Walking without assistance or significant difficulty; Working without restriction.;Diffic ulty exercising on a regular basis secondary to pain.;Difficulty participating in recreation on a regular basis secondary to pain. DEBBIE REGAN [address] [place] [address], [phone], Formerly [facility] 12/21/2020 12:47:49 OBGyn Episode No OBEpisode recorded.
--- OUTSIDE RECORDS SUMMARY | 2024-12-26 23:22 | XMS_ITS | Encounter Summary ---
Author Organization Healthcare Address [address] [place] [address] Care Team Providers Care Brim Setter Name Role Phone Pcp, No Primary Care Provider Unavailabl e Bren Lira DMD Unavailable Eugene Holloway Unavailable Unavailabl e Encounter Details Date Type Department Care Team (Late Contact Info) Description 12/25/2024 Telephone [facility] [address] [phone] Dental, Surgeon, [address] [place] [address] Social History Tobacco Use Types Packs/Day Years [...] * Telephone Encounter - Kathryn Knight - 12/25/2024 10:43 AM EDT Called to confirm appt date and time. Pt answered and confirmed. documented in this encounter Plan of Treatment Upcoming Encounters Date Type Department Care Team (Late Contact Info) Description 12/31/2024 9:00 AM EDT Office [facility] [address] [phone] documented as of this encounter Visit Diagnoses Not on filedocumented in this encounter Care Teams Brim Setter Relationship Specialty Start Date End Date Pcp, No [address] [place] [address] PCP - General Family Medicine 09/05/24 Bren Lira, DASHAWN [address] [phone] Dentist 09/18/24 Eugene Holloway Dental Student Dental Baggage Handling Supervisor 09/18/24 documented as of this encounter
--- OUTSIDE RECORDS SUMMARY | 2024-12-26 23:22 | XMS_ITS | Clinical Summary ---
Author Organization [facility] Address [address] [place] [address] Care Team Providers Care Quality Assurance Consultant Name Role Phone Ryan Love MD Primary Care Provider [phone] Source Comments This information has been disclosed to you from confidential records protectedfrom disclosure by state law. You shall make no further disclosure of thisinformation without the specific, written, and informed release of theindividual to whom it pertains, or as otherwise permitted by law. A generalauthorization for the release of medical or other information is not sufficientfor the purposes of therelease of HIV test results or diagnoses. [id number] Allergies Active Allergy Reactions Criticality Noted Date Comments Moxifloxacin 09/15/2011 Medications cyclobenzaprine (FLEXERIL) 10 MG tablet Take 1 tablet (10 mg total) by mouth 3 times a day as needed for Muscle spasms. Active oxyCODONE-acetami nophen (PERCOCET) 10-325 mg per tablet Take 1 tablet by mouth in the morning and at bedtime. Active OXcarbazepine (TRILEPTAL) 300 MG tablet Take 1 tablet (300 mg total) by mouth 2 times a day. Active levonorgestreL (MIRENA) 20 mcg/24 hours (7 yrs) 52 mg IUD 1 Intra Uterine Device by Intrauterine route continuous. Active norgestimate-ethi nyl estradioL (ORTHO-CYCLEN) 0.25-35 mg-mcg per tablet Take 1 tablet by mouth daily. Active ALBUTEROL INHL Inhale into the lungs. 2 Puffs Daily PRN Active fluticasone propionate (FLONASE) 50 mcg/actuation nasal spray Use 1 spray into each nostril daily. Active calcium citrate-vitamin D (CITRACAL+D) 315 mg-5 mcg (200 unit) Take 1 tablet by mouth daily. Active cloNIDine HCL (CATAPRES) 0.1 MG tablet Take 1 tablet (0.1 mg total) by mouth 2 times a day as needed. Active naloxone (NARCAN) 4 mg/actuation SpryIndications:L umbar radiculopathy Apply 1 spray in one nostril if needed. Call 911. May repeat dose in other nostril if no response in 3 minutes. 2 each 1 08/02/19 Active aspirin 81 MG EC tablet 11/08/19 Active metoprolol succinate (TOPROL-XL) 25 MG 24 hr tablet 11/08/19 Active QUEtiapine (SEROQUEL) 50 MG tablet 2 tablets (100 mg total). 10/25/19 Active clonazePAM (KLONOPIN) 0.5 MG tablet Take 1 tablet (0.5 mg total) by mouth 2 times a day as needed for Anxiety. Active metaxalone (SKELAXIN) 800 MG tablet Take 1 tablet (800 mg total) by mouth 3 times a day. Active oxyCODONE (OXY-IR) 5 mg capsule Take 1 capsule (5 mg total) by mouth every 6 hours as needed for Pain. Active diphenhydrAMINE (BENADRYL) 50 MG capsule Take 1 capsule (50 mg total) by mouth every 6 hours as needed for Itching. Active methylPREDNISolon e (MEDROL, ISMAEL,) 4 mg tablet Take as instructed in package 21 tablet 02/16/20 Active lidocaine (LIDODERM) 5 % Place 1 patch onto the skin daily. Apply patch for 12 hours and then remove patch and leave off for 12 hours. 30 patch 02/25/20 22 Active naloxone (NARCAN) 4 mg/actuation [place] Insert into either nostril then completely depress plunger to give dose of naloxone. Use as needed for opiate/narcotic overdose that leads to decreased breathing or no breathing 2 each 02/25/20 22 Active gabapentin (NEURONTIN) 300 MG capsuleIndication s:Lumbar radiculopathy TAKE 1 CAPSULE (300 MG TOTAL) BY MOUTH 3 TIMES A DAY. 90 capsule 03/16/20 Active Active Problems Problem Noted Date Diagnosed Date Bipolar 2 disorder 11/15/2021 Pre-diabetes 08/16/2021 Cholelithiasis 08/15/2021 Obese 08/15/2021 Fatty liver 08/15/2021 Acute pancreatitis without infection or necrosis 08/14/2021 Bicipital tendinitis of right shoulder Tendinitis of right rotator cuff 03/16/2021 Degeneration of lumbar intervertebral disc 11/23 Borderline personality disorder in adult 017 COPD (chronic obstructive pulmonary disease) 10/2016 Anxiety 06/06/2013 ADHD (attention deficit hyperactivity disorder) 04/18/2013 Asthma 04/18/2012 Encounters Date Type Department Care Team Description 12/23/2024 9:46 PM EDT - 12/24/2024 12:31 AM EDT Emergency [facility] Emergency Department [address] [place] [phone] Discharge Disposition: ED Dismiss - Left Before Treatment 12/23/2024 Travel 12/20/2024 Travel 12/19/2024 11:59 PM EDT - 12/20/2024 2:59 AM EDT Emergency [facility] Emergency Department [address] [place] [phone] Discharge Disposition: ED Dismiss - Left Before Treatment 10/24/2024 9:16 PM EDT - 10/24/2024 11:40 PM EDT Emergency [facility] Emergency Department [address] [place] [phone] Doris Miller MD Chronic bilateral low back pain with bilateral sciatica (Primary Dx) Discharge Disposition: Home or Self Care WITHOUT Home Care Services 10/24/2024 Travel 10/18/2024 8:59 PM EDT - 10/18/2024 11:12 PM EDT Emergency [facility] Emergency Department [address] [place] [phone] Raghu Chiu MD Lumbar back pain (Primary Dx) Discharge Disposition: Home or Self Care WITHOUT Home Care Services 10/18/2024 Travel from Last 3 Months Social History Tobacco Use Types Packs/Day Years Used Date Smoking Tobacco: Every Day Cigarettes 0.3 24 Smokeless Tobacco: Never Tobacco Cessation:Ready to Q uit: Not Asked; Counseling Given: Not Answered Alcohol Use Standard Drinks/Week Comments Yes 2 [...] Orientation Straight 02/13/2022 2: 53 PM EDT Last Filed Vital Signs Vital Sign Reading Time Taken Comments Blood Pressure 133/72 12/23/2024 9:52 PM EDT Pulse 77 12/23/2024 9:52 PM EDT Temperature 37 C (98.6 F) 12/23/2024 9:52 PM EDT Respiratory Rate 18 12/23/2024 9:52 PM EDT Oxygen Saturation 100% 12/23/2024 9:52 PM EDT Inhaled Oxygen Concentration 100% 12/23/2024 9 :52 PM EDT Weight 121.6 kg (268 lb) 09/05/2022 1:28 PM EST Height 180.3 cm (5' 11 ) 09/05/2022 1:28 PM EST Body Mass Index 37.38 09/05/2022 1:28 PM EST Plan of Treatment Health Maintenance Due Date Last Done Comments ASCVD Assessment 1983 Depression Monitoring (PHQ-9) 1983 Diabetes Screening 1983 Lipid Panel 1983 Pulmonary Function Testing 1983 Alcohol Misuse Screening 2001 HIV Screening 2001 Immunization: DTaP/Tdap/Td (1 - Tdap) 2002 Immunization: Hepatitis B (1 of 3 - 19+ 3-dose series) 2002 Cervical Cancer Screening/Pa p Smear ([employer]) 2013 Tobacco Cessation Readiness 08/02/2022 08/02/2021 Mammogram ([employer]) 2023 Immunization: COVID-19 ( season) 2024 11/24/2020, 10/27/2020 Immunization: Pneumococcal Completed 08/21/2023 Immunization: Influenza (MyChart) Completed 03/13/2024, 04/28/2023, 05/09/2021 Hepatitis C Screening (MyChart) Completed Procedures Procedure Name Priority Date/Time Associated Diagnosis Comments URINALYSIS, MICROSCOPIC STAT 12/23/2024 10:28 PM EDT HCG URINE, QUALITATIVE STAT 12/23/2024 10:28 PM EDT URINALYSIS-MACROSCOPI C W/REFLEX TO MICROSCOPIC STAT 12/23/2024 10:28 PM EDT HIGH SENSITIVITY TROPONIN STAT 12/23/2024 10:28 PM EDT HEPATIC FUNCTION PANEL STAT 12/23/2024 10:28 PM EDT DIFFERENTIAL STAT 12/23/2024 10:28 PM EDT CBC STAT 12/23/2024 10:28 PM EDT BASIC METABOLIC PANEL STAT 12/23/2024 10:28 PM EDT XR CHEST PA AND LATERAL ROBERT 12/23/2024 10:24 PM EDT HIGH SENSITIVITY TROPONIN STAT 12/20/2024 12:57 AM EDT HEPATIC FUNCTION PANEL STAT 12/20/2024 12:56 AM EDT B NATRIURETIC PEPTIDE STAT 12/20/2024 12:56 AM EDT DIFFERENTIAL STAT 12/20/2024 12:56 AM EDT CBC STAT 12/20/2024 12:56 AM EDT ED HCV AB REFLEX TO HCV QUANT Routine 12/20/2024 12:56 AM EDT BASIC METABOLIC PANEL STAT 12/20/2024 12:56 AM EDT ED ECG 12-LEAD (MUSE) STAT 12/20/2024 12:50 AM EDT from Last 3 Months Results * HCG Urine, Qualitative (12/23/2024 10:28 PM EDT) [facility] hCG Qualitative -Clinitek Negative Negative 12/23/2024 10:42 PM EDT [facility] Urine 12/23/2024 10:2 8 PM EDT 12/23/2024 10:33 PM EDT us Amisha LEWIS URINE ORDERABLES Final Result Performing Organization Address City/[facility]/ZIP Co de Phone Number [facility] [address] [place] [address]. [address] * High Sensitivity Troponin (12/23/2024 10:28 PM EDT) Only the most recent of2 resultswithin the time period is included. [facility] High Sensitivity Troponin 3 0 - 14 ng/L 12/23/2024 10:58 PM EDT [facility] Serum 12/23/2024 10:2 8 PM EDT 12/23/2024 10:33 PM EDT us Amisha LEWIS LAB BLOOD ORDERABLES Final Resul t Performing Organization Address City/[facility]/ZIP Co de Phone Number [facility] [address] [facility]. [address] * (ABNORMAL) Urinalysis, Microscopic (12/23/2024 10:28 PM EDT) [facility] RBC, UA 3 0 - 3 /HPF 12/23/2024 10:59 PM EDT [facility] WBC, UA >100(H) 0 - 5 /HPF 12/23/2024 10:59 PM EDT [facility] WBC Clumps, UA Moderate(A ) None Seen /HPF 12/23/2024 10:59 PM EDT [facility] Squam Epithel, UA 1 0 - 5 /HPF 12/23/2024 10:59 PM EDT [facility] Trans Epithel, UA 2 0 - 5 /HPF 12/23/2024 10:59 PM EDT [facility] Bacteria, UA Moderate(A ) None Seen /HPF 12/23/2024 10:59 PM EDT [facility] Hyaline Casts, UA 1 0 - 2 /LPF 12/23/2024 10:59 PM EDT [facility] Urine 12/23/2024 10:2 8 PM EDT 12/23/2024 10:35 PM EDT us Amisha LEWIS URINE ORDERABLES Final Result [facility] [address] [place] [address], [facility] * (ABNORMAL) Urinalysis-Macroscopic w/Rfx to Microsco (12/23/2024 10:28 PM EDT) Color, UA Yellow Yellow,Straw 12/23/2024 10:59 PM EDT [facility] Clarity, UA Cloudy(A) Clear 12/23/2024 10:59 PM EDT [facility] Specific Griffith, UA 1.015 1.005 - 1.035 12/23/2024 10:59 PM EDT [facility] pH, UA 6.0 5.0 - 8.0 12/23/2024 10:59 PM EDT [facility] Protein, UA Negative Negative mg/dL 12/23/2024 10:59 PM EDT [facility] Glucose, UA Negative Negative mg/dL 12/23/2024 10:59 PM EDT [facility] Ketones, UA Negative Negative mg/dL 12/23/2024 10:59 PM EDT [facility] Bilirubin, UA Negative Negative 12/23/2024 10:59 PM EDT [facility] Blood, UA Trace-intact (A) Negative 12/23/2024 10:59 PM EDT [facility] Nitrite, UA Positive(A) Negative 12/23/2024 10:59 PM EDT [facility] Urobilinogen, UA 0.2 E.U./dL 0.2 - 1.0 EU/dL 12/23/2024 10:59 PM EDT [facility] Leukocyte Esterase, UA Moderate(A) Negative 12/23/2024 10:59 PM EDT [facility] Urine 12/23/2024 10:2 8 PM EDT 12/23/2024 10:33 PM EDT us Amisha LEWIS URINE ORDERABLES Final Result Performing Organization Address City/[facility]/ZIP Co de Phone Number [facility] [address] [facility]. [address] * Hepatic Function Panel (12/23/2024 10:28 PM EDT) Only the most recent of2 resultswithin the time period is included. Total Bilirubin 0.5 0.0 - 1.5 mg/dL 12/23/2024 10:52 PM EDT [facility] Bilirubin, Direct 0.3 0.0 - 0.4 mg/dL 12/23/2024 10:52 PM EDT [facility] AST 18 13 - 39 U/L 12/23/2024 10:52 PM EDT [facility] ALT 17 7 - 52 U/L 12/23/2024 10:52 PM EDT [facility] Alkaline Phosphatase 47 36 - 125 U/L 12/23/2024 10:52 PM EDT [facility] Total Protein 6.9 6.4 - 8.9 g/dL 12/23/2024 10:52 PM EDT [facility] Albumin 4.0 3.5 - 5.7 g/dL 12/23/2024 10:52 PM EDT [facility] Bilirubin, Indirect 0.2 0.0 - 1.1 mg/dL 12/23/2024 10:52 PM EDT [facility] Plasma 12/23/2024 10:2 8 PM EDT 12/23/2024 10:33 PM EDT us Amisha LEWIS LAB BLOOD ORDERABLES Final Resul t [facility] [address] * Differential (12/23/2024 10:28 PM EDT) Only the most recent of2 resultswithin the time period is included. Neutrophils Relative 54.5 40.0 - 80.0 % 12/23/2024 10:54 PM EDT [facility] Lymphocytes Relative 31.9 15.0 - 45.0 % 12/23/2024 10:54 PM EDT [facility] Monocytes Relative 7.9 0.0 - 12.0 % 12/23/2024 10:54 PM EDT [facility] Eosinophils Relative 4.8 0.0 - 8.0 % 12/23/2024 10:54 PM EDT [facility] Basophils Relative 0.9 0.0 - 1.0 % 12/23/2024 10:54 PM EDT [facility] nRBC 0 0 - 0 /100 WBC 12/23/2024 10:54 PM EDT [facility] Neutrophils Absolute 4,197 1,520 - 8,640 /uL 12/23/2024 10:54 PM EDT [facility] Lymphocytes Absolute 2,456 570 - 4,860 /uL 12/23/2024 10:54 PM EDT [facility] Monocytes Absolute 608 0 - 1,296 /uL 12/23/2024 10:54 PM EDT [facility] Eosinophils Absolute 370 0 - 864 /uL 12/23/2024 10:54 PM EDT [facility] Basophils Absolute 69 0 - 108 /uL 12/23/2024 10:54 PM EDT [facility] Whole Blood 12/23/2024 10:2 8 PM EDT 12/23/2024 10:46 PM EDT us Amisha LEWIS LAB BLOOD ORDERABLES Final Resul t [facility] [address] [place] [address], [facility] * (ABNORMAL) CBC (12/23/2024 10:28 PM EDT) Only the most recent of2 resultswithin the time period is included. WBC 7.7 3.8 - 10.8 10E3/uL 12/23/2024 10:54 PM EDT [facility] RBC 3.81 3.80 - 5.10 10E6/uL 12/23/2024 10:54 PM EDT [facility] Hemoglobin 12.6 11.7 - 15.5 g/dL 12/23/2024 10:54 PM EDT [facility] Hematocrit 37.3 35.0 - 45.0 % 12/23/2024 10:54 PM EDT [facility] MCV 98.1 80.0 - 100.0 fL 12/23/2024 10:54 PM EDT [facility] MCH 33.1(H) 27.0 - 33.0 pg 12/23/2024 10:54 PM EDT [facility] MCHC 33.8 32.0 - 36.0 g/dL 12/23/2024 10:54 PM EDT [facility] RDW 13.3 11.0 - 15.0 % 12/23/2024 10:54 PM EDT [facility] Platelets 247 140 - 400 10E3/uL 12/23/2024 10:54 PM EDT [facility] MPV 7.6 7.5 - 11.5 fL 12/23/2024 10:54 PM EDT [facility] Whole Blood 12/23/2024 10:2 8 PM EDT 12/23/2024 10:46 PM EDT us Amisha LEWIS LAB BLOOD ORDERABLES Final Resul t [facility] [address] [place] [address], [facility] * (ABNORMAL) Basic metabolic panel (12/23/2024 10:28 PM EDT) Only the most recent of2 resultswithin the time period is included. Sodium 140 133 - 146 mmol/L 12/23/2024 10:52 PM EDT [facility] Potassium 3.8 3.5 - 5.3 mmol/L 12/23/2024 10:52 PM EDT [facility] Chloride 110 98 - 110 mmol/L 12/23/2024 10:52 PM EDT [facility] CO2 24 21 - 33 mmol/L 12/23/2024 10:52 PM EDT [facility] Anion Gap 6 3 - 16 mmol/L 12/23/2024 10:52 PM EDT [facility] BUN 6(L) 7 - 25 mg/dL 12/23/2024 10:52 PM EDT [facility] Creatinine 0.88 0.60 - 1.30 mg/dL 12/23/2024 10:52 PM EDT [facility] Glucose 124(H) 70 - 100 mg/dL 12/23/2024 10:52 PM EDT [facility] Calcium 8.7 8.6 - 10.3 mg/dL 12/23/2024 10:52 PM EDT [facility] Osmolality, Calculated 289 278 - 305 mOsm/kg 12/23/2024 10:52 PM EDT [facility] EGFR 85 12/23/2024 10:52 PM EDT [facility] Comment:As of 2021, the estimated GFR [...] LEWIS LAB BLOOD ORDERABLES Final Resul t [facility] [address] [place] [address], [facility] * X-ray Chest PA and Lateral (12/23/2024 [...] IMG DIAGNOSTIC IMAGING ORDERABLE S Final Result * ED HCV Ab Reflex To HCV Quant (12/20/2024 12:56 AM EDT) HCV Ab Nonreactive Nonreactive 12/20/2024 2:07 AM EDT [facility] Comment:Health Department no tified in accordance with reportable infectious disease guidelines. HCVAB Number 0.05 0.00 - 0.79 S/CO 12/20/2024 2:07 AM EDT [facility] Serum 12/20/2024 12:5 6 AM EDT 12/20/2024 1:08 AM EDT us Kathryn LEWIS LAB BLOOD ORDERABLES Final Resul t [facility] [address] [place] [address], [facility] * BNP (12/20/2024 12:56 AM EDT) BNP 20 0 - 100 pg/mL 12/20/2024 2:10 AM EDT [facility] Comment: BNP may be increased in the presence of sacubitril/valsartan (Entresto). Please interpret accordingly. Plasma 12/20/2024 12:5 6 AM EDT 12/20/2024 1:10 AM EDT Narrative [facility] - 12/20/2024 2:10 AM EDT The presence of high concentrations of biotin may cause falsely lowered BNP results. Biotin interference may be seen if an individual is taking >5 mg biotin per day. Interpret BNP results in the context of the patient's clinical presentation. Kathryn LEWIS LAB BLOOD ORDERABLES Final Resul t [facility] [address] * ECG for indication of syncope (12/20/2024 12:50 AM EDT) 12/20/2024 12:5 0 AM EDT Narrative MUSE - 12/20/2024 8:16 AM EDT Ventricular Rate: 67 BPM Atrial Rate: 67 BPM P-R Interval: 154 ms QRS Duration: 88 ms QT: 394 ms QTc: 416 ms P [place]: 11 degrees R [place]: -4 degrees T [place]: -5 degrees Diagnosis Line: ^ INTERPRETATION NOT AVAILABLE--ECG READ IN ER ^ Confirmed by PHYSICIAN, ER ([id number]), design editor Le Simon ([id number]) on 12/20/2024 8:16:14 AM Kathryn LEWIS ECG ORDERABLES Final Result MUSE from Last 3 Months Insurance Care Teams Quality Assurance Consultant Relationship Specialty [place] [address] [place] [address] PCP - General Family Medicine 09/24/24
--- OUTSIDE RECORDS SUMMARY | 2024-12-26 23:22 | XMS_ITS | Encounter Summary ---
Author Organization Healthcare Address [address] [place] [address] Care Team Providers Care Senior Designer/Art Director Name Role Phone Pcp, No Primary Care Provider Unavailabl e Bren Lira DMD Unavailable Eugene Holloway Unavailable Unavailabl e Encounter Details Date Type Department Care Team (Latest Contact Info) Description 12/26/2024 Travel Social History Tobacco Use Types Packs/Day [...] 12/31/2024 9:00 AM EDT Office Visit [facility] [address] [phone] documented as of this encounter Visit Diagnoses Not on filedocumented in this encounter Care Teams Senior Designer/Art Director Relationship Specialty Start Date End Date Pcp, No [address] [place] [address] PCP - General Family Medicine 09/05/24 Bren Lira DMD [address] [place] [address] [phone] Dentist 09/18/24 Eugene Holloway Dental Student Dental [place] Supervisor 09/18/24 documented as of this encounter
--- OUTSIDE RECORDS SUMMARY | 2024-12-26 23:22 | XMS_ITS | Encounter Summary ---
Author Organization [facility] Address [address] [place] [id number] Care Team Providers Care Manager Process Improvement Name Role Phone Ryan Love MD Primary Care Provider [phone] Source Comments This information has been disclosed [...] release of HIV test results or diagnoses. [id number] Health Encounter Details Date Type Department Care Team (Latest Contact Info) Description 12/23/2024 Travel Social History Tobacco Use Types Packs/Day [...] PM EDT documented as of this encounter Plan of Treatment Not on file documented as of this encounter Visit Diagnoses Not on filedocumented in this encounter Care Teams Manager Process Improvement Relationship Specialty Start Date End Date Ryan Love MD [address] [place] [address] [place] [address] PCP - General Family Medicine 09/24/24 documented as of this encounter
--- OUTSIDE RECORDS SUMMARY | 2024-12-26 23:22 | XMS_ITS | Clinical Summary ---
Author Organization [facility] Address [address] [place] [address] Phone Care Team Providers Care Suppository Molding Machine Operator Name Role Phone Ryan Love MD Primary Care Provider [phone] Allergies Active Allergy Reactions Criticality Noted Date Comments Moxifloxacin 09/15/2011 Medications cyclobenzaprine (FLEXERIL) 10 mg Oral TabletIndications :muscle spasm Take 10 mg by mouth 3 times daily. Indications: muscle spasm 01/25/20 21 Active VENTOLIN HFA 90 mcg/actuation Inhl HFA Aerosol Inhaler 11/24/19 21 Active traMADoL (ULTRAM) 50 mg Oral TabletIndications :Lumbar radiculopathy Take 1 tablet by mouth every 6 hours as needed [PRN] 15 Tablet 03/14/20 21 Active Additional Information Patient not taking.Reason: Therapy Completed, Reported on 01/09/2022 zolpidem (AMBIEN) 10 mg Oral Tablet Take by mouth nightly. Active OXcarbazepine (TRILEPTAL) 300 mg Oral TabletIndications :mood stablization Take 300 mg by mouth 2 times daily. Indications: mood stablization Active norgestimate-ethi nyl estradioL (ORTHO-CYCLEN) 0.25-35 mg-mcg Oral TabletIndications :abnormal uterine bleeding Take 1 Tablet by mouth daily. Indications: abnormal bleeding from the uterus Active oxyCODONE (ROXICODONE) 5 mg Oral Tablet Take by mouth 2 times daily. Active clonazePAM (KLONOPIN) 0.5 mg Oral Tablet Take 0.5 mg by mouth 2 times daily. Active Active Problems Problem Noted Date Diagnosed Date Pre-diabetes 08/16/2021 Tobacco abuse 08/16/2021 Obese 08/15/2021 Cholelithiasis 08/15/2021 Fatty liver 08/15/2021 Acute pancreatitis without infection or necrosis 08/14/2021 Tendinitis of right rotator cuff 03/16/2021 Bicipital tendinitis of right shoulder COPD (chronic obstructive pulmonary disease) 10/2016 Borderline personality disorder in adult 017 Anxiety 06/06/2013 ADHD (attention deficit hyperactivity disorder) 04/18/2013 Asthma 04/18/2012 Bipolar 2 disorder Surgical History Surgery Date Site/Laterality Comments YOANDY-EN-Y GASTRIC BYPASS 07/16/2017 - 07/15/2018 Medical History Medical History Date Comments Diabetes mellitus (HCC) Asthma Bipolar 2 disorder (HCC) Arthritis COPD (chronic obstructive pulmonary disease) (HC C) H/O degenerative disc disease Social History Tobacco Use Types Packs/Day Years Used Date Smoking Tobacco: Every Day Cigarettes 0.5 28 Started: 12/25/1996 Smokeless Tobacco: Never Tobacco Cessation:Ready to Q uit: No Alcohol Use Standard Drinks/Week Comments Yes 0 (1 standard drink = 0.6 oz pur e alcohol) occ Overall Financial Resource Strain (CARDIA) Answe r Date Recorded How hard is it for you to pa y for the very basics like food, housing, medical care, and heating? Not very hard 08/15/2021 Hunger Vital Sign Answer Date Recorded Within the past 12 months, y ou worried that your food would run out before you got the money to buy more. Never true 08/15/19 22 Within the past 12 months, t he food you bought just didn't last and you didn't have money to get more. Never true 08/15/2021 PRAPARE - Transportation Answer Date Re corded In the past 12 months, has l ack of transportation kept you from medical appointments or from getting medications? No 07/18 In the past 12 months, has l ack of transportation kept you from meetings, work, or from getting things needed for daily living? No 08/15/2021 Comments No Sex and Gender Information Value Date Recorded Sex Assigned at Not on file Legal Sex Female 8:34 AM EDT Gender Identity Not on file Sexual Orientation Not on file Obstetrics History Last Filed Vital Signs Vital Sign Reading Time Taken Comments Blood Pressure 112/74 12/23/2022 1:00 AM EDT Pulse 61 12/23/2022 1:00 AM EDT Temperature 36.3 C (97.3 F) 12/22/2022 8:09 PM EDT Respiratory Rate 20 12/22/2022 8:09 PM EDT Oxygen Saturation 99% 12/23/2022 1:00 AM EDT Inhaled Oxygen Concentration - - Weight 138 kg (304 lb 3.2 oz) 12/22/2022 8:09 PM EDT Height 180.3 cm (5' 11 ) 12/22/2022 8:09 PM EDT Body Mass Index 42.43 12/22/2022 8:09 PM EDT Plan of Treatment Health Maintenance Due Date Last Done Comments Annual Wellness Exam 1986 DTaP/TDaP/Td (1 - Tdap) 2002 Hepatitis B Vaccine (1 of 3 - 19+ 3-dose series) 2002 Pneumococcal Vaccine 0-49 (1 of 2 - PCV) 2002 Cervical Cancer Screening 2004 Pap Smear 2004 HPV/Pap Cotest 2013 Breast Cancer Screening 2023 COVID-19 Vaccine (3 - 2023-2 5 season) 2024 11/24/2020, 10/27/2020 Influenza Vaccine (Season Ended) 2025 05/09/2021 Meningococcal B Vaccine Aged Out No l onger eligible based on patient's age to complete this topic Insurance [facility] MDR [facility] MDR Advance Directives For more information, please contact: [phone] * Full Code (Latest Code Status on File) Date Activated Date Inactivated Comments 08/14/2021 11:15 PM 08/17/2021 5:25 PM Care Teams Suppository Molding Machine Operator Relationship Specialty Start Date End Date Ryan Love MD [address] [place] [address] PCP - General Family Medicine 08/14/21
--- OUTSIDE RECORDS SUMMARY | 2024-12-26 23:22 | XMS_ITS | Encounter Summary ---
Author Organization [facility] Address [address] [place] [address] Care Team Providers Care Artist Manager Name Role Phone Ryan Love MD Primary Care Provider [phone] Source Comments This information has been disclosed [...] release of HIV test results or diagnoses. [id number] Health Encounter Details Date Type Department Care Team (Latest Contact Info) Description 12/20/2024 Travel Social History Tobacco Use Types Packs/Day [...] on filedocumented in this encounter Care Teams Artist Manager Relationship Specialty Start Date End Date Ryan Love MD [address] [place] [address] [place] [address] PCP - General Family Medicine 09/24/24 documented as of this encounter
[2025-01-09 15:34] LABS: Lithium (Eskalith(R)) 0.5
== END 2024-12-25 23:59 | disposition home or self-care (01) ==
LOC: LAB.DROPOF 12-26 23:19
PROVIDERS: Nurse Practitioner Acute Care; PCP Nurse Practitioner Family; Visit Provider Nurse Practitioner Family
DX: Z00.00 Encounter for general adult medical examination without abnormal findings (principal); E11.8 Type 2 diabetes mellitus with unspecified complications; I25.10 Atherosclerotic heart disease of native coronary artery without angina pectoris; R53.83 Other fatigue; I10 Essential (primary) hypertension; R30.0 Dysuria; R32 Unspecified urinary incontinence; F41.9 Anxiety disorder, unspecified; F32.A Depression, unspecified; F25.0 Schizoaffective disorder, bipolar type
CPT/HCPCS: 80053; 80061; 80178; 83036; 84439; 84443; 87086; 87088; 87186

== ENCOUNTER → 2025-01-05 20:28 | Outpatient (CLI) | payer OTHER, SELFPAY ==
--- OUTSIDE RECORDS SUMMARY | 2022-06-14 07:09 | XMS_ITS | Continuity of Care Document ---
Author Organization [facility] o Address [address] [place] [address] Phone Care Team Providers Care Garage Mechanic Name Role Phone Lawson PHILLIPS, Rios Unavailable Unavailabl e Advance Directives Directive Yes / No Effective Date File Name No Information Encounters Encounter Description Practice Location Reason(s) For Visit Diagnoses Date Provider Providers Copied on Encounter [facility] [place], [facility] [address] [place], [place], [facility], tel:[phone] 00 [facility] No Information 2 [facility]. [address] [place], [place], [facility], . tel:[phone] Family History Family Member Type Diagnosis Age [...]
--- OUTSIDE RECORDS SUMMARY | 2024-12-19 23:59 | XMS_ITS | Encounter Summary ---
Author Organization [facility] Address [address] [place] [id number] Care Team Providers Care Systems Test Technician Name Role Phone Ryan Love MD Primary Care Provider [phone] Source Comments This information has been disclosed to you from confidential records protectfrom disclosure by state law. You shall make no further disclosure of thisinformation without the specific, written, and informed release of theindividual to whom it pertains, or as otherwise permitted by law. A generalauthorization for the release of medical or other information is not sufficientfor the purposes of the release of HIV test results or diagnoses. [id number] Reason for Visit * Reason Comments Ankle Swelling Encounter Details Date Type Department Care Team (Late st Contact Info) Description 12/19/2024 11:59 PM EDT - 12/20/2024 2:59 AM EDT Emergency [facility] Emergency Department [address] [place] [id number] Discharge Disposition: ED Dismiss - Left Before Treatment Social History Tobacco Use Types Packs/Day Years Used Date Smoking Tobacco: Every Day Cigarettes 0.3 24 Smokeless Tobacco: Never Alcohol Use Standard Drinks/Week Comments Yes 2 (1 standard drink = 0.6 oz pur e alcohol) Weekly 1 Shot Whiskey Monthly PHQ-2 Answer Date Recorded PHQ-2 Total Score 0 11/15/2021 Comments No Sex and Gender Information Value Date Recorded Sex Assigned at Female 02/13/2022 2:53 PM EDT Legal Sex Female 4:20 PM EST Gender Identity Female 02/13/2022 2:53 PM EDT Sexual Orientation Straight 02/13/2022 2: 53 PM EDT documented as of this encounter Last Filed Vital Signs Vital Sign Reading Time Taken Comments Blood Pressure 149/82 12/20/2024 12:02 AM EDT Pulse 72 12/20/2024 12:02 AM EDT Temperature 37.1 C (98.8 F) 12/20/2024 12:02 AM EDT Respiratory Rate 16 12/20/2024 12:02 AM EDT Oxygen Saturation 98% 12/20/2024 12:02 AM EDT Inhaled Oxygen Concentration 98% 12/20/2024 1 2:02 AM EDT Weight - - Height - - Body Mass Index - - documented in this encounter Medications at Time of Discharge ALBUTEROL INHL Inhale into the lungs. 2 Puffs Daily PRN aspirin 81 MG EC tablet 11/07/2021 calcium citrate-vitamin D (CITRACAL+D) 315 mg-5 mcg (200 unit) Take 1 tablet by mouth daily. clonazePAM (KLONOPIN) 0.5 MG tablet Take 1 tablet (0.5 mg total) by mouth 2 times a day as needed for Anxiety. cloNIDine HCL (CATAPRES) 0.1 MG tablet Take 1 tablet (0.1 mg total) by mouth 2 times a day as needed. cyclobenzaprine (FLEXERIL) 10 MG tablet Take 1 tablet (10 mg total) by mouth 3 times a day as needed for Muscle spasms. diphenhydrAMINE (BENADRYL) 50 MG capsule Take 1 capsule (50 mg total) by mouth every 6 hours as needed for Itching. fluticasone propionate (FLONASE) 50 mcg/actuation nasal spray Use 1 spray into each nostril daily. gabapentin (NEURONTIN) 300 MG capsuleIndications :Lumbar radiculopathy TAKE 1 CAPSULE (300 MG TOTAL) BY MOUTH 3 TIMES A DAY. 90 capsule 03/16/2022 levonorgestreL (MIRENA) 20 mcg/24 hours (7 yrs) 52 mg IUD 1 Intra Uterine Device by Intrauterine route continuous. lidocaine (LIDODERM) 5 % Place 1 patch onto the skin daily. Apply patch for 12 hours and then remove patch and leave off for 12 hours. 30 patch 02/24/2022 metaxalone (SKELAXIN) 800 MG tablet Take 1 tablet (800 mg total) by mouth 3 times a day. methylPREDNISolone (MEDROL, ISMAEL,) 4 mg tablet Take as instructed in package 21 tablet 02/15/2022 metoprolol succinate (TOPROL-XL) 25 MG 24 hr tablet 11/07/2021 naloxone (NARCAN) 4 mg/actuation SpryIndications:Delilah gonzales radiculopathy Apply 1 spray in one nostril if needed. Call 911. May repeat dose in other nostril if no response in 3 minutes. 2 each 1 08/02/2021 naloxone (NARCAN) 4 mg/actuation [place] Insert into either nostril then completely depress plunger to give dose of naloxone. Use as needed for opiate/narcotic overdose that leads to decreased breathing or no breathing 2 each 02/24/2022 norgestimate-ethin yl estradioL (ORTHO-CYCLEN) 0.25-35 mg-mcg per tablet Take 1 tablet by mouth daily. OXcarbazepine (TRILEPTAL) 300 MG tablet Take 1 tablet (300 mg total) by mouth 2 times a day. oxyCODONE (OXY-IR) 5 mg capsule Take 1 capsule (5 mg total) by mouth every 6 hours as needed for Pain. oxyCODONE-acetamin ophen (PERCOCET) 10-325 mg per tablet Take 1 tablet by mouth in the morning and at bedtime. QUEtiapine (SEROQUEL) 50 MG tablet 2 tablets (100 mg total). 10/24/2021 documented as of this encounter Nursing Notes * Obi Valdovinos RN - 12/20/2024 12:01 AM EDT [place] [facility] [place] complaints of swelling of the ankles that started aprox 2-3 weeks prior. Ptalso complains of dizziness with random falls. Pt states she fell aprox 2x this week, denies hitting her head. Pt denies headache at this time documented in this encounter ED Notes * Eufemia Nassar RN - 12/20/2024 2:59 AM EDT Pt to desk at this time and states they no longer wish to wait for a room. PIV removed. Pt ambulate from lobby in stable condition. documented in this encounter Miscellaneous Notes * ED Medical Screening Exam - DEBBIE Mcneil - 12/20/2024 12:28 AM EDT [facility] for Emergency Care Provider Note MEDICAL SCREENING EXAM Date of Service: 12/20/2024 Reason for Visit: Ankle Swelling MSE Plan The patient was briefly evaluated from the [facility] for a medical screening exam. In short, this is a patient presenting with bilateral lower extremity edema. To further evaluate their complaints, the following orders have been placed: Labs Reviewed - No data to display No orders to display The following medication orders have been placed: Medications - No data to display Based on the patient's presentation, the patient has been identified as needing a bed, however no beds are currently available in our emergency department. The patient will be held in the lobby untila treatment space is made available. Brief HPI Juliana Olguin is a 39 y.o. female with history of asthma, COPD, [place], L5/S1 right disc herniation, degenerative disc disease with bilateral sciatica, peripheral neuropathy, bipolar disorder presenting with bilateral lower extremity edema. Patient reports that for the past 3 weeks now she is experien cing persistent bilateral lower extremity edema. She has tried elevating her legs. She has been taking her water pills regularly as they have been prescribed to her. She denies any recent changes in medication besides a slight decrease in her metoprolol dose. Additionally she reports that she has been falling a lot more recently. She denies having any chest pain or feeling lightheaded dizzy or nauseous prior to falling. She denies tripping and falling. She denies her legs feeling weak and giving out on her. She is completely in uncertain what is causing her to fall. Last fall was 2 days ago. Denies any injury from fall. Did not hit her head during the fall and has not been experiencing any nausea or vomiting. Denies any chest pain shortness of breath. Pertinent Physical Exam ED Triage Vitals [12/20/24 0002] Encounter Vitals Group BP 149/82 Systolic BP Percentile Diastolic BP Percentile Heart Rate 72 Resp 16 Temp 98.8 ??F (37.1 ??C) Temp Source Oral SpO2 98 % Weight Height Head Circumference Peak Flow Pain Score Eight Pain Loc Pain Education Exclude from Growth Chart Physical Exam Vitals: 12/20/24 0002 BP: 149/82 BP Location: Right upper arm Patient Position: Sitting BP Cuff Size: Large Pulse: 72 Resp: 16 Temp: 98.8 ??F (37.1 ??C) TempSrc: Oral SpO2: 98% General: 39 y.o. female in no apparent distress, well developed, well nourished, non-toxic appearance. HEENT: Atraumatic, normocephalic. Neck: Full range of motion. Chest/pulm: Respiratory rate normal. Speaks in complete sentences, no respiratory distress. Cardiovascular: Heart rate normal. Abdomen: No gross distension. : Deferred. Musculoskeletal: No obvious joint deformity. Bilateral lower extremity edema. 5 out of 5 hip flexion bilaterally. 5 out of 5 knee flexion and extension bilaterally. 5 out of 5 plantar and dorsi flexion bilaterally. Neuro: A&O x 4. Normal speech without dysarthria or aphasia. Moves all extremities spontaneously and symmetrically. Skin: Warm, dry. No obvious rashes, petechiae, or purpura. Psych: Appropriate mood and affect, normal interaction. Past Medical History Medical History: Past Medical History: Diagnosis Date Bilateral leg numbness Neuropathy Numbness and tingling of both feet Surgical History: History reviewed. No pertinent surgical history. Medications: No current facility-administered medications for this encounter. Current Outpatient Medications: ALBUTEROL INHL, Inhale into the lungs. 2 Puffs Daily PRN, Disp: , Rfl: aspirin 81 MG EC tablet, , Disp: , Rfl: calcium citrate-vitamin D (CITRACAL+D) 315 mg-5 mcg (200 unit), Take 1 tablet by mouth daily., Disp: , Rfl: clonazePAM (KLONOPIN) 0.5 MG tablet, Take 1 tablet (0.5 mg total) by mouth 2 times a day as needed for Anxiety., Disp: , Rfl: cloNIDine HCL (CATAPRES) 0.1 MG tablet, Take 1 tablet (0.1 mg total) by mouth 2 times a day as needed., Disp: , Rfl: cyclobenzaprine (FLEXERIL) 10 MG tablet, Take 1 tablet (10 mg total) by mouth 3 times a day as needed for Muscle spasms., Disp: , Rfl: diphenhydrAMINE (BENADRYL) 50 MG capsule, Take 1 capsule (50 mg total) by mouth every 6 hours as needed for Itching., Disp: , Rfl: fluticasone propionate (FLONASE) 50 mcg/actuation nasal spray, Use 1 spray into each nostril daily., Disp: , Rfl: gabapentin (NEURONTIN) 300 MG capsule, TAKE 1 CAPSULE (300 MG TOTAL) BY MOUTH 3 TIMES A DAY., Disp:90 capsule, Rfl: 0 levonorgestreL (MIRENA) 20 mcg/24 hours (7 yrs) 52 mg IUD, 1 Intra Uterine Device by Intrauterine route continuous., Disp: , Rfl: lidocaine (LIDODERM) 5 %, Place 1 patch onto the skin daily. Apply patch for 12 hours and then remove patch and leave off for 12 hours., Disp: 30 patch, Rfl: 0 metaxalone (SKELAXIN) 800 MG tablet, Take 1 tablet (800 mg total) by mouth 3 times a day., Disp: , Rfl: methylPREDNISolone (MEDROL, ISMAEL,) 4 mg tablet, Take as instructed in package, Disp: 21 tablet, Rfl:0 metoprolol succinate (TOPROL-XL) 25 MG 24 hr tablet, , Disp: , Rfl: naloxone (NARCAN) 4 mg/actuation [place], Apply 1 spray in one nostril if needed. Call 911. May repeatdose in other nostril if no response in 3 minutes., Disp: 2 each, Rfl: 1 naloxone (NARCAN) 4 mg/actuation [place], Insert into either nostril then completely depress plunger to give dose of naloxone. Use as needed for opiate/narcotic overdose that leads to decreased breathing or no breathing, Disp: 2 each, Rfl: 0 norgestimate-ethinyl estradioL (ORTHO-CYCLEN) 0.25-35 mg-mcg per tablet, Take 1 tablet by mouth daily., Disp: , Rfl: OXcarbazepine (TRILEPTAL) 300 MG tablet, Take 1 tablet (300 mg total) by mouth 2 times a day., Disp: , Rfl: oxyCODONE (OXY-IR) 5 mg capsule, Take 1 capsule (5 mg total) by mouth every 6 hours as needed for Pain., Disp: , Rfl: oxyCODONE-acetaminophen (PERCOCET) 10-325 mg per tablet, Take 1 tablet by mouth in the morning and at bedtime., Disp: , Rfl: QUEtiapine (SEROQUEL) 50 MG tablet, 2 tablets (100 mg total)., Disp: , Rfl: documented in this encounter Plan of Treatment Scheduled Orders Name Type Priority Associated Diagnoses Orde r Schedule Urine culture Microbiology Routine Once for 1 Occurrences starting 12/20/2024 until 12/20/2024 documented as of this encounter Procedures Procedure Name Priority Date/Time Associated Diagnosis Comments HIGH SENSITIVITY TROPONIN STAT 12/20/2024 12:57 AM EDT HEPATIC FUNCTION PANEL STAT 12/20/2024 12:56 AM EDT ED HCV AB REFLEX TO HCV QUANT Routine 12/20/2024 12:56 AM EDT DIFFERENTIAL STAT 12/20/2024 12:56 AM EDT CBC STAT 12/20/2024 12:56 AM EDT B NATRIURETIC PEPTIDE STAT 12/20/2024 12:56 AM EDT BASIC METABOLIC PANEL STAT 12/20/2024 12:56 AM EDT ED ECG 12-LEAD (MUSE) STAT 12/20/2024 12:50 AM EDT documented in this encounter Results * High Sensitivity Troponin (12/20/2024 12:57 AM EDT) High Sensitivity Troponin 3 0 - 14 ng/L 12/20/2024 1:30 AM EDT [facility] Serum 12/20/2024 12:5 7 AM EDT 12/20/2024 1:04 AM EDT us Kathryn LEW[facility] BLOOD ORDERABLES Final Resul t [facility] [address] [place] [address], [facility] * Hepatic Function Panel (12/20/2024 12:56 AM EDT) Total Bilirubin 0.6 0.0 - 1.5 mg/dL 12/20/2024 1:22 AM EDT [facility] Bilirubin, Direct 0.1 0.0 - 0.4 mg/dL 12/20/2024 1:22 AM EDT [facility] AST 19 13 - 39 U/L 12/20/2024 1:22 AM EDT [facility] ALT 24 7 - 52 U/L 12/20/2024 1:22 AM EDT [facility] Alkaline Phosphatase 52 36 - 125 U/L 12/20/2024 1:22 AM EDT [facility] Total Protein 6.5 6.4 - 8.9 g/dL 12/20/2024 1:22 AM EDT [facility] Albumin 3.7 3.5 - 5.7 g/dL 12/20/2024 1:22 AM EDT [facility] Bilirubin, Indirect 0.5 0.0 - 1.1 mg/dL 12/20/2024 1:22 AM EDT [facility] Plasma 12/20/2024 12:5 6 AM EDT 12/20/2024 1:04 AM EDT us Kathryn LEWIS LAB BLOOD ORDERABLES Final Resul t [facility] [address] * BNP (12/20/2024 12:56 AM EDT) BNP 20 0 - 100 pg/mL 12/20/2024 2:10 AM EDT [facility] Comment: BNP may be increased in the presence of sacubitril/valsartan (Entresto). Please interpret accordingly. Plasma 12/20/2024 12:5 6 AM EDT 12/20/2024 1:10 AM EDT Narrative [facility] - 12/20/2024 2:10 AM EDT The presence of high concentrations of biotin may cause falsely lowered BNP results. Biotin interference may be seen if an individual is taking >5 mg biotin per day. Interpret BNP results in the context of the patient's clinical presentation. us Kathryn LEWIS [facility] BLOOD ORDERABLES Final Resul t [facility] [address] * (ABNORMAL) Differential (12/20/2024 12:56 AM EDT) Pathologist [facility] [place] Neutrophils Relative 55.1 40.0 - 80.0 % 12/20/2024 1:29 AM EDT [facility] Lymphocytes Relative 30.9 15.0 - 45.0 % 12/20/2024 1:29 AM EDT [facility] Monocytes Relative 7.3 0.0 - 12.0 % 12/20/2024 1:29 AM EDT [facility] Eosinophils Relative 4.7 0.0 - 8.0 % 12/20/2024 1:29 AM EDT [facility] Basophils Relative 2.0(H) 0.0 - 1.0 % 12/20/2024 1:29 AM EDT [facility] nRBC 0 0 - 0 /100 WBC 12/20/2024 1:29 AM EDT [facility] Neutrophils Absolute 4,739 1,520 - 8,640 /uL 12/20/2024 1:29 AM EDT [facility] Lymphocytes Absolute 2,657 570 - 4,860 /uL 12/20/2024 1:29 AM EDT [facility] Monocytes Absolute 628 0 - 1,296 /uL 12/20/2024 1:29 AM EDT [facility] Eosinophils Absolute 404 0 - 864 /uL 12/20/2024 1:29 AM EDT [facility] Basophils Absolute 172(H) 0 - 108 /uL 12/20/2024 1:29 AM EDT [facility] Whole Blood 12/20/2024 12:5 6 AM EDT 12/20/2024 1:10 AM EDT Kathryn LEWIS [facility] BLOOD ORDERABLES Final Resul t [facility] [address] * (ABNORMAL) CBC (12/20/2024 12:56 AM EDT) WBC 8.6 3.8 - 10.8 10E3/uL 12/20/2024 1:29 AM EDT [facility] RBC 3.75(L) 3.80 - 5.10 10E6/uL 12/20/2024 1:29 AM EDT [facility] Hemoglobin 12.6 11.7 - 15.5 g/dL 12/20/2024 1:29 AM EDT [facility] Hematocrit 36.3 35.0 - 45.0 % 12/20/2024 1:29 AM EDT [facility] MCV 96.8 80.0 - 100.0 fL 12/20/2024 1:29 AM EDT [facility] MCH 33.7(H) 27.0 - 33.0 pg 12/20/2024 1:29 AM EDT [facility] MCHC 34.8 32.0 - 36.0 g/dL 12/20/2024 1:29 AM EDT [facility] RDW 13.4 11.0 - 15.0 % 12/20/2024 1:29 AM EDT [facility] Platelets 244 140 - 400 10E3/uL 12/20/2024 1:29 AM EDT [facility] MPV 7.6 7.5 - 11.5 fL 12/20/2024 1:29 AM EDT [facility] Whole Blood 12/20/2024 12:5 6 AM EDT 12/20/2024 1:10 AM EDT us Kathryn LEWIS LAB BLOOD ORDERABLES Final Resul t [facility] [address] * ED HCV Ab Reflex To HCV Quant (12/20/2024 12:56 AM EDT) HCV Ab Nonreactive Nonreactive 12/20/2024 2:07 AM EDT [facility] Comment:Health Department no tified in accordance with reportable infectious disease guidelines. HCVAB Number 0.05 0.00 - 0.79 S/CO 12/20/2024 2:07 AM EDT [facility] Serum 12/20/2024 12:5 6 AM EDT 12/20/2024 1:08 AM EDT us Kathryn LEWIS LAB BLOOD ORDERABLES Final Resul t [facility] [address] [place] [address], [facility] * (ABNORMAL) Basic metabolic panel (12/20/2024 12:56 AM EDT) Sodium 138 133 - 146 mmol/L 12/20/2024 1:22 AM EDT [facility] Potassium 3.7 3.5 - 5.3 mmol/L 12/20/2024 1:22 AM EDT [facility] Chloride 107 98 - 110 mmol/L 12/20/2024 1:22 AM EDT [facility] CO2 25 21 - 33 mmol/L 12/20/2024 1:22 AM EDT [facility] Anion Gap 6 3 - 16 mmol/L 12/20/2024 1:22 AM EDT [facility] BUN 9 7 - 25 mg/dL 12/20/2024 1:22 AM EDT [facility] Creatinine 0.75 0.60 - 1.30 mg/dL 12/20/2024 1:22 AM EDT [facility] Glucose 107(H) 70 - 100 mg/dL 12/20/2024 1:22 AM EDT [facility] Calcium 8.6 8.6 - 10.3 mg/dL 12/20/2024 1:22 AM EDT [facility] Osmolality, Calculated 285 278 - 305 mOsm/kg 12/20/2024 1:22 AM EDT [facility] EGFR >90 12/20/2024 1:22 AM EDT [facility] Comment: As of 2021, the estimated GFR is calculated using the 2020 Chronic Kidney Disease Epidemiology Collaboration (CKD-EPI) equation. In line with the NKF-ASN Task Force Recommendations, this equation does not include a coefficient for race. A single eGFR value is calculated for each patient. The reference interval is >60 mL/min/1.73m2. eGFR values greater than 90 will be reported as >90mL/min/1.73m2. Reference: Ruiz C, Sheryl M, Dontrell [place], Hudson [place], Phill [place], Cony [place], et al. A Unifying Approach for GFR Estimation: Recommendations of the NKF-ASN Task Force on Reassessing the inclusion of Race in Diagnosing Kidney Disease. Am J Kidney Dis. 2020. GFR is estimated using creatinine, age, and sex. Patient's values should be interpreted as a trend. Below 90 mL/min/1.73m2, the patient may have renal disease. For additional information: www.kidney.org Plasma 12/20/2024 12:5 6 AM EDT 12/20/2024 1:04 AM EDT Kathryn LEW[facility] BLOOD ORDERABLES Final Resul t Performing Organization Address City/State/[facility] Co de Phone Number [facility] [address] * ECG for indication of syncope (12/20/2024 12:50 AM EDT) 12/20/2024 12:5 0 AM EDT Narrative MUSE - 12/20/2024 8:16 AM EDT Ventricular Rate: 67 BPM Atrial Rate: 67 BPM P-R Interval: 154 ms QRS Duration: 88 ms QT: 394 ms QTc: 416 ms P [place]: 11 degrees R [place]: -4 degrees T [place]: -5 degrees Diagnosis Line: ^ INTERPRETATION NOT AVAILABLE--ECG READ IN ER ^ Confirmed by PHYSICIAN, ER ([id number]), communications editor Le Simon ([id number]) on 12/20/2024 8:16:14 AM Kathryn LEWIS ECG ORDERABLES Final Result MUSE documented in this encounter Visit Diagnoses Not on filedocumented in this encounter Care Teams Systems Test Technician Relationship Specialty Start Date End Date Ryan Love MD [address] [place] [address] PCP - General Family Medicine 09/24/24 documented as of this encounter
--- OUTSIDE RECORDS SUMMARY | 2024-12-23 21:46 | XMS_ITS | Encounter Summary ---
Author Organization [facility] Address [address] [place] [id number] Care Team Providers Care Hot Plate Press Operator Name Role Phone Ryan Love MD Primary Care Provider [phone] Source Comments This information has been disclosed [...] release of HIV test results or diagnoses. [id number] Reason for Visit * Reason Comments Foot Swelling Bilateral Fall Encounter Details Date Type Department Care Team (Late st Contact Info) Description 12/23/2024 9:46 PM EDT - 12/24/2024 12:31 AM EDT Emergency [facility] Emergency Department [address] [place] [phone] Discharge Disposition: ED Dismiss - Left Before [...] tablet 11/07/2021 naloxone (NARCAN) 4 mg/actuation SpryIndications:Delilah christian radiculopathy Apply 1 spray in one nostril if needed. Call 911. May repeat dose in other nostril if no response in 3 minutes. 2 each 1 08/02/2021 naloxone (NARCAN) 4 mg/actuation [place] Insert into either nostril then completely depress [...] total). 10/24/2021 documented as of this encounter ED Notes * Rubina Savage RN - 12/24/2024 12:30 AM EDT Pt to desk stating she would like to leave and cannot wait any longer. Pt states she has PCP appt tomorrow, PIV removed and pt ambulatory leaving dept documented in this encounter Miscellaneous Notes * ED Medical Screening Exam - DEBBIE Avila - 12/24/2024 12:31 AM EDT [facility] ED Callback Note Juliana Olguin is a [...] DEBBIE Shetty - 12/23/2024 10:11 PM EDT [facility] MEDICAL SCREENING EXAM Date of Service: 12/23/2024 Reason for Visit: Foot Swelling (Bilateral ) and Fall MSE Plan Patient evaluated from the [facility] for a medical screening exam. In [...] (from the past 4160 hours). [facility]. See primary provider's [...] Disp: , Rfl: naloxone (NARCAN) 4 mg/actuation [place], Apply 1 spray in one nostril if needed. Call 911. May repeatdose in other nostril if no response in 3 minutes., Disp: 2 each, Rfl: 1 naloxone (NARCAN) 4 mg/actuation [place], Insert into either nostril then completely depress [...] - 3 /HPF 12/23/2024 10:59 PM EDT [facility] WBC, UA >100(H) 0 - 5 /HPF 12/23/2024 10:59 PM EDT [facility] WBC Clumps, UA Moderate(A ) None Seen /HPF 12/23/2024 10:59 PM EDT [facility] Squam Epithel, UA 1 0 - 5 /HPF 12/23/2024 10:59 PM EDT [facility] Trans Epithel, UA 2 0 - 5 /HPF 12/23/2024 10:59 PM EDT [facility] Bacteria, UA Moderate(A ) None Seen /HPF 12/23/2024 10:59 PM EDT [facility] Hyaline Casts, UA 1 0 - 2 /LPF 12/23/2024 10:59 PM EDT [facility] Urine 12/23/2024 10:2 8 PM EDT 12/23/2024 10:35 PM EDT Amisha LEWIS URINE ORDERABLES Final Result Performing Organization Address City/[facility]/ZIP Co de Phone Number [facility] [address] [facility]. [address] * HCG Urine, Qualitative (12/23/2024 10:28 PM EDT) hCG Qualitative -Clinitek Negative Negative 12/23/2024 10:42 PM EDT [facility] Urine 12/23/2024 10:2 8 PM EDT 12/23/2024 10:33 PM EDT Amisha LEWIS URINE ORDERABLES Final Result Performing Organization Address City/[facility]/ZIP Va de Phone Number [facility] [address] [facility]. [address] * (ABNORMAL) Urinalysis-Macroscopic w/Rfx to Microsco (12/23/2024 10:28 PM EDT) Color, UA Yellow Yellow,Straw 12/23/2024 10:59 PM EDT [facility] Clarity, UA Cloudy(A) Clear 12/23/2024 10:59 PM EDT [facility] Specific [place], UA 1.015 1.005 - 1.035 12/23/2024 10:59 PM EDT [facility] pH, UA 6.0 5.0 - 8.0 12/23/2024 10:59 PM EDT [facility] Protein, UA Negative Negative mg/dL 12/23/2024 10:59 PM EDT [facility] Glucose, UA Negative Negative mg/dL 12/23/2024 10:59 PM EDT [facility] Ketones, UA Negative Negative mg/dL 12/23/2024 10:59 PM EDT [facility] Bilirubin, UA Negative Negative 12/23/2024 10:59 PM EDT [facility] Blood, UA Trace-intact (A) Negative 12/23/2024 10:59 PM EDT [facility] Nitrite, UA Positive(A) Negative 12/23/2024 10:59 PM EDT [facility] Urobilinogen, UA 0.2 E.U./dL 0.2 - 1.0 EU/dL 12/23/2024 10:59 PM EDT [facility] Leukocyte Esterase, UA Moderate(A) Negative 12/23/2024 10:59 PM EDT [facility] Urine 12/23/2024 10:2 8 PM EDT 12/23/2024 10:33 PM EDT us Amisha LEWIS URINE ORDERABLES Final Result Performing Organization Address [facility]/ZIP Co de Phone Number [facility] [address] [facility]. [address] * High Sensitivity Troponin (12/23/2024 10:28 PM EDT) High Sensitivity Troponin 3 0 - 14 ng/L 12/23/2024 10:58 PM EDT [facility] Serum 12/23/2024 10:2 8 PM EDT 12/23/2024 10:33 PM EDT us Amisha LEWIS LAB BLOOD ORDERABLES Final Resul t [facility] [address] [facility]. [address] * Hepatic Function Panel (12/23/2024 10:28 PM EDT) Total Bilirubin 0.5 0.0 - 1.5 mg/dL 12/23/2024 10:52 PM EDT [facility] Bilirubin, Direct 0.3 0.0 - 0.4 mg/dL 12/23/2024 10:52 PM EDT [facility] AST 18 13 - 39 U/L 12/23/2024 10:52 PM EDT [facility] ALT 17 7 - 52 U/L 12/23/2024 10:52 PM EDT [facility] Alkaline Phosphatase 47 36 - 125 U/L 12/23/2024 10:52 PM EDT [facility] Total Protein 6.9 6.4 - 8.9 g/dL 12/23/2024 10:52 PM EDT [facility] Albumin 4.0 3.5 - 5.7 g/dL 12/23/2024 10:52 PM EDT [facility] Bilirubin, Indirect 0.2 0.0 - 1.1 mg/dL 12/23/2024 10:52 PM EDT [facility] Plasma 12/23/2024 10:2 8 PM EDT 12/23/2024 10:33 PM EDT us Amisha LEWIS LAB BLOOD ORDERABLES Final Resul t [facility] [address] * Differential (12/23/2024 10:28 PM EDT) Neutrophils Relative 54.5 40.0 - 80.0 % 12/23/2024 10:54 PM EDT [facility] Lymphocytes Relative 31.9 15.0 - 45.0 % 12/23/2024 10:54 PM EDT [facility] Monocytes Relative 7.9 0.0 - 12.0 % 12/23/2024 10:54 PM EDT [facility] Eosinophils Relative 4.8 0.0 - 8.0 % 12/23/2024 10:54 PM EDT [facility] Basophils Relative 0.9 0.0 - 1.0 % 12/23/2024 10:54 PM EDT [facility] nRBC 0 0 - 0 /100 WBC 12/23/2024 10:54 PM EDT [facility] Neutrophils Absolute 4,197 1,520 - 8,640 /uL 12/23/2024 10:54 PM EDT [facility] Lymphocytes Absolute 2,456 570 - 4,860 /uL 12/23/2024 10:54 PM EDT [facility] Monocytes Absolute 608 0 - 1,296 /uL 12/23/2024 10:54 PM EDT [facility] Eosinophils Absolute 370 0 - 864 /uL 12/23/2024 10:54 PM EDT [facility] Basophils Absolute 69 0 - 108 /uL 12/23/2024 10:54 PM EDT [facility] Whole Blood 12/23/2024 10:2 8 PM EDT 12/23/2024 10:46 PM EDT us Amisha LEW[facility] LAB BLOOD ORDERABLES Final Resul t [facility] [address] [place] [address], [facility] * (ABNORMAL) CBC (12/23/2024 10:28 PM EDT) WBC 7.7 3.8 - 10.8 10E3/uL 12/23/2024 10:54 PM EDT [facility] RBC 3.81 3.80 - 5.10 10E6/uL 12/23/2024 10:54 PM EDT [facility] Hemoglobin 12.6 11.7 - 15.5 g/dL 12/23/2024 10:54 PM EDT [facility] Hematocrit 37.3 35.0 - 45.0 % 12/23/2024 10:54 PM EDT [facility] MCV 98.1 80.0 - 100.0 fL 12/23/2024 10:54 PM EDT [facility] MCH 33.1(H) 27.0 - 33.0 pg 12/23/2024 10:54 PM EDT [facility] MCHC 33.8 32.0 - 36.0 g/dL 12/23/2024 10:54 PM EDT [facility] RDW 13.3 11.0 - 15.0 % 12/23/2024 10:54 PM EDT [facility] Platelets 247 140 - 400 10E3/uL 12/23/2024 10:54 PM EDT [facility] MPV 7.6 7.5 - 11.5 fL 12/23/2024 10:54 PM EDT [facility] Whole Blood 12/23/2024 10:2 8 PM EDT 12/23/2024 10:46 PM EDT us Amisha LEW[facility] LAB BLOOD ORDERABLES Final Resul t [facility] [address] * (ABNORMAL) Basic metabolic panel (12/23/2024 10:28 PM EDT) Sodium 140 133 - 146 mmol/L 12/23/2024 10:52 PM EDT [facility] Potassium 3.8 3.5 - 5.3 mmol/L 12/23/2024 10:52 PM EDT [facility] Chloride 110 98 - 110 mmol/L 12/23/2024 10:52 PM EDT [facility] CO2 24 21 - 33 mmol/L 12/23/2024 10:52 PM EDT [facility] Anion Gap 6 3 - 16 mmol/L 12/23/2024 10:52 PM EDT [facility] BUN 6(L) 7 - 25 mg/dL 12/23/2024 10:52 PM EDT [facility] Creatinine 0.88 0.60 - 1.30 mg/dL 12/23/2024 10:52 PM EDT [facility] Glucose 124(H) 70 - 100 mg/dL 12/23/2024 10:52 PM EDT [facility] Calcium 8.7 8.6 - 10.3 mg/dL 12/23/2024 10:52 PM EDT [facility] Osmolality, Calculated 289 278 - 305 mOsm/kg 12/23/2024 10:52 PM EDT [facility] EGFR 85 12/23/2024 10:52 PM EDT [facility] Comment:As of 2021, the estimated GFR [...] LEWIS LAB BLOOD ORDERABLES Final Resul t [facility] [address] * X-ray Chest PA and Lateral (12/23/2024 [...] on filedocumented in this encounter Care Teams Hot Plate Press Operator Relationship Specialty Start Date End Date Ryan Love MD [address] [place] [address] PCP - General Family Medicine 09/24/24 documented as of this encounter
--- OUTSIDE RECORDS SUMMARY | 2024-12-26 14:30 | XMS_ITS | Encounter Summary ---
Author Organization [facility] Address [address] [place] [address] Care Team Providers Care Systems Management Consultant Name Role Phone Pcp, No Primary Care Provider Unavailabl e Bren Lira DMD Unavailable [phone] Eugene Holloway Unavailable Unavailabl e Reason for Visit * Consultation (Routine) - Closed Specialty Diagnoses / Procedures Referred By Octavio hicks Referred To Contact Oral Surgery Diagnoses Encounter for dental examination Garrison Rosenberg, DMD 800 [facility] [address] [place] [address] Phone: tel: fax: [facility] [address] [address] Phone: tel: fax: Referral ID Status Reason Start Date Expiration Date V isits Requested Visits Authorized [id number] Closed Specialty Services Required 09/05/2024 03/07/2026 1 1 Encounter Details Date Type Department Care Team (Late st Contact Info) Description 12/26/2024 2:30 PM EDT Evaluation [facility] [address] [phone] Akin Shay, DMD 800 [facility] [address] [place] [address] Oral mucosal lesion (Primary Dx) [...] that she had her teeth taken out [id number]. Denies nausea, vomiting, fever, or chills. Objective: [...] fissuratum removal local anesthesia. Michael Araujo DDS opera singer Cosigned by Akin Shay DMD at 12/31/2024 [...] 01/15/2025 7:30 AM EDT Office Visit [facility] [address] [address] documented as of this encounter Visit Diagnoses Diagnosis Oral mucosal lesion- Primary documented in this encounter Care Teams Systems Management Consultant Relationship Specialty Start Date End Date Pcp, No 800 [place] [address] PCP - General Family Medicine 09/05/24 Bren Lira, DMD [address] [address] Dentist 09/18/24 Eugene Holloway Dental Student Dental Assistant Dean Of Students 09/18/24 documented as of this encounter
--- OUTSIDE RECORDS SUMMARY | 2025-01-05 20:32 | XMS_ITS | Encounter Summary ---
Author Organization [facility] Address [address] [place] [address] Care Team Providers Care Computer Support Specialist Name Role Phone Pcp, No Primary Care Provider Unavailabl e Bren Lira DMD Unavailable [phone] Eugene Holloway Unavailable Unavailabl e Reason for Referral * Consultation (Routine) - Authorized Specialty Diagnoses / Procedures Referred By Octavio t Referred To Contact Neurosurgery Diagnoses Thoracic, thoracolumbar and lumbosacral intervertebral disc disorder Ryan Love MD [address] [place] [address] Phone: tel: fax: Referral ID Status Reason Start Date Expiration Date Visits Requested Visits Authorized [id number] Authorized Specialty Services Required 02/04/2024 08/05/2025 1 1 Encounter Details Date Type Department Care Team (Latest Contact Info) Description 02/04/2024 Community [facility] [address] [place] [address] Ryan Love MD [address] [place] [address] Thoracic, thoracolumbar and lumbosacral intervertebral disc disorder [...] 01/15/2025 7:30 AM EDT Office Visit [facility] [address] [address] Scheduled Referrals Name Type Priority Associated Diagnoses Orde r Schedule Ambulatory Referral to Neurosurgery Outpatient Referral Routine Thoracic, thoracolumbar and lumbosacral intervertebral disc disorder Expected: 02/04/2024 (Approximate), Expires: 08/06/2025 documented as of this encounter Visit Diagnoses Diagnosis Thoracic, thoracolumbar and lumbosacral intervertebral disc disorder- Primary documented in this encounter Care Teams Computer Support Specialist Relationship Specialty Start Date End Date Pcp, No [address] [place] [address] PCP - General Family Medicine 09/05/24 Bren Lira, DMD [address] [address] Dentist 09/18/24 Eugene Holloway Dental Student Dental Acquisition Editor 09/18/24 documented as of this encounter
--- OUTSIDE RECORDS SUMMARY | 2025-01-05 20:33 | XMS_ITS | Encounter Summary ---
Author Organization [facility] Address [address] [place] [address] Care Team Providers Care Lead Pourer Name Role Phone Pcp, No Primary Care [...] 01/15/2025 7:30 AM EDT Office Visit [facility] automatic centrifugal station operator [facility] [address] [address] documented as of this encounter Visit Diagnoses Not on filedocumented in this encounter Care Teams Lead Pourer Relationship Specialty Start Date End Date Pcp, No [address] [place] [address] PCP - General Family Medicine 09/05/24 Bren Lira DMD [address] [address] Dentist 09/18/24 Eugene Holloway Dental Student Dental Jack Spooler Tender 09/18/24 documented as of this encounter
--- OUTSIDE RECORDS SUMMARY | 2025-01-05 20:33 | XMS_ITS | Data Portability ---
Author Organization [facility] Address [address] [place] [address] Assessment No assessment recorded. Plan of Treatment Reminders Order Date Submit Date Provider Last Modified By Organization Details Last Modified Time Details Appointments None recorded. Lab None recorded. Referral None recorded. Procedures None recorded. Surgeries None recorded. Imaging [facility], [facility], w[facility]o contrast [facility] [address] [place] [address] , [place], [address], 4 12:54:46 XR, knee 2023 024 jill [facility], [address] [place] [address] , [place], [address], 4 09:06:17 XR, ankle 2023 024 rios [facility], [address] [place] [address] , [place], [address], 4 09:47:02 Medication Orders Voltaren Arthritis Pain 1 % topical gel [email or web address] [facility] [id number], [address] [place] [address] , [place], [address], 4 11:18:36 Medrol (Desmond) 4 mg tablets in a dose pack [email or web address] [facility] [id number], [address] [place] [address] [place], [address], 11:18:36 Patient TargetsNo targets recorded. Patient InstructionsNo instructions recorded. Reason for Referral None Reported. Results Created Date Observation Date Name Description Value Unit Range Abnormal Flag Note LastModifiedBy Organization Detail LastModifiedTime 08/08/19 XR, ankle No observ ation record ed. [email or web address] Not Available 2023 09:27:26 09/05/19 24 XR, ankle No observ ation record ed. MARY Tillman [address] [place], [address], 09/05/2023 09:20:29 03/13/20 XR, knee No observ ation record ed. MARY Tillman [address] [place], [address], 03/13/2024 09:54:46 04/15/2004/15/2024 MRI, knee, w/o contr ast [facility] Name: VERNON OLGUIN [facility] Med[facility] l [employer] Phys: [place] [address] : 1984 Age: 38 Sex: F Acct: [id number] Loc: G.MRI PHONE #: [phone] Exam Date: 2023 Status : REG CLI FAX #: Rad# [id number] Unit# [id number] Admit Date: 2023 EXAMS: CPT CODE: [id number] MRI KNEE LEFT W/O CONT [id number] CLINIC AL INFORM ATION: Left knee pain [...] do not hesita te to call for clarif icatio n when necess fili. Electr onical ly Signed by Yudy Do on 2023 at 1245 Report ed and signed by: STEVE Do M.D. PAGE 1 Signed Report (JASON NUED) [facility] Name: VERNON OLGUIN [facility] [employer] Phys: Low[place] [address] : 1984 Age: 38 Sex: F Acct: [id number] Loc: G.MRI PHONE #: [phone] Exam Date: 2023 Status : REG CLI FAX #: [phone] Rad# [id number] Unit# [id number] Admit Date: 2023 EXAMS: CPT CODE: [id number] MRI KNEE LEFT W/O CONT 74514 CC: Earnest Mackey DO; Ryan Love MD Dictat ed Date/T eliseo: 2023 (6899) Techno logist : WHITNEY AYALA RT(R)( M)(CT) (MR) Transc ribed Date/T eliseo: 2023 (1249) Transc riptio nist: DR.HAR SUZANNE Garcia onic Signat ure Date/T eliseo: 2023 (1249) Printe d Date/T eliseo: 2023 (3767) BATCH NO: N/A PAGE 2 Signed Report CC'ed Logic: Orderi ng Provid er: KEY HUFF Attend ing Provid er: KEY HUFF Referr ing Provid er: KEY HUFF Consul ting Provid er: EVE MCMANUS [email or web address], [place], [address], 04/15/2024 15:04:25 Result Notes Documentation Provider Name and Address Organization Details Recorded Time Mri, Knee, W/o Contrast : [facility] Ce Name: JULIANA OLGUIN Jose [address] [place] [address] Phys: [place] [address] : 1985 Age: 38 Sex: F Acct: [id number] Loc: G.MRI PHONE #: Exam Date: 04/15/2024 Status: REG CLI FAX #: Rad# [id number] Unit# [id number] Admit Date: 04/15/2024 EXAMS: CPT CODE: [id number] MRI KNEE LEFT W/O CONT 72419 CLINICAL INFORMATION: Left knee pain for 2-1/2 [...] PRUETT M.D. PAGE 1 Signed Report (CONTINUED) [facility] Ce Name: JULIANA OLGUIN [facility] [employer] Phys: [place] [address] : 1985 Age: 38 Sex: F Acct: [id number] Loc: G.MRI PHONE #: Exam Date: 04/15/2024 Status: REG CLI FAX #: Rad# [id number] Unit# [id number] Admit Date: 04/15/2024 EXAMS: CPT CODE: [id number] MRI KNEE LEFT W/O CONT [id number] CC: Earnest Mackey DO; Ryan Love MD Dictated Date/Time: 04/15/2024 (1249) Technologist: WHITNEY AYALA RT(R)(M)(CT)(MR) Transcribed Date/Time: 04/15/2024 (1249) Mold Carrier: Electronic Signature Date/Time: 04/15/2024 (1249) Printed Date/Time: 04/15/2024 (5553) BATCH NO: N/A PAGE 2 Signed Report CC'ed Logic: Ordering Provider: KEY HUFF Attending Provider: KEY HUFF Referring Provider: KEY HUFF Consulting Provider: EVE velarde [facility] & [place] 04/15/2024 15:04:25 Procedures Surgical History Date Name Laterality Status Provider Name and Address Organization Details Recorded Time 8 Abdominal Surgery completed Pamela Chen [place] - [facility] & [place] 06/26/2023 14:21:16 Imaging Results None recorded. Procedure [...] completed Not Available Not Available Not Available Nurte ODT 75 mg disintegrat ing tablet active Not Available Not Available N ot Available Auvelity 45 mg-105 mg tablet, extended release 06/23 completed Not Available Not Available Not Available Vitals None Recorded Social History Question Answer Notes LastModified by Organizat ion Details LastModified Time Tobacco Smoking Status Current Every Day Smoker Pamela Garner-Arabella null, [place] - [facility] - [place] & [place] 06/26/2023 14:21:10 Do You Have An Advance [...] anxious, or unable to sleep at night)? [id number] Information not available 06/26/2023 Family History Nothing Reported. Medical History Condition Response Gout Y Obesity Y Arthritis Y Back Problems Y Headaches Y Gynecological History Statement/Question Response Menses Monthly N Abnormal Pap N Age at Menarche 10 Date of LMP 10/21/2021 Obstetrics History GPAL:G 0 P 0 0 0 0 Immunizations Vaccine Type Date Status Note Provider Nam e and Address Organization Details Recorded Time Influenza, split virus, quadrivalent, preservative 1 completed Fauzia velarde [place] - [facility] - [place] [facility] [place] 08/08/2023 09:29:02 Influenza, recombinant, quadrivalent, PF 3 completed Fauzia velarde, [place] - [facility] - [facility] 08/08/2023 09:29:02 COVID-19, mRNA, LNP-S, PF, 100 mcg/0.5mL dose or 50 mcg/0.25mL dose 04/14/202 1 completed RA Riddle [facility] & [place] 08/08/2023 09:29:02 COVID-19, mRNA, LNP-S, PF, 100 mcg/0.5mL dose or 50 mcg/0.25mL dose completed RA Riddle [facility] & [place] 08/08/2023 09:29:02 Past Encounters Encounter ID Performer Location Encounter Start Date Encounter Closed Date Diagnosis/Indication Diagnosis SNOMED-CT Code Diagnosis ICD10 Code Diagnosis Note [id number] [facility] [place] [address] 06/26/2023 14:14:14 06/26/2023 14:54:19 Pain of right knee joint [id number] 29533 M25.561 Arthritis of right knee 6694430390 796502 M13.861 [id number] EARNEST MACKEY DO [place] [address] 08/08/2023 09:15:32 08/08/2023 09:56:09 Pain of right knee joint 3915992160 05644 M25.561 Arthritis of right knee 9035114648 347196 M13.861 Sprain of right ankle 11 87825177 5712961 S93.401A [id number] DO RAJAT WAKEFIELD [place] [address] 09/05/2023 09:05:38 09/05/2023 09:43:31 Pain of right knee joint 8906662390 23595 M25.561 Arthritis of right knee 3188399632 465886 M13.861 Sprain of right ankle 11 79884176 1401060 S93.401A [id number] MD RAJAT Perez [facility] [place] [address] 03/13/2024 09:19:55 03/13/2024 10:37:02 Pain of left knee joint 8768246154 66022 M25.562 Osteoarthr itis of left knee joint 1395605971 53545 M17.12 [id number] DO RAJAT WAKEFIELD [facility] [address] [place] [address] 04/08/2024 09:28:45 04/08/2024 10:42:00 Pain of left knee joint 4969718219 88188 M25.562 Tear of me dial meniscus of knee 675954147 S83.232A [id number] DO RAJAT WAKEFIELD [facility] [address] [place] [address] 05/05/2024 09:43:42 05/05/2024 10:48:50 Osteoarthritis of left knee joint 3428656872 88421 M17.12 Health Concerns Section Related Observation LastModified by Organization Detai ls LastModified Time None Recorded Concern Status LastModified by Organization Details LastModified Time None Recorded Advance Directives Directive N: Payers Insurance Date Sequence Insurance Name Policy Number Policy Cunningham Covered Member ID Cunningham Member ID Guarantor Name 05/12/2024 1 [facility] (MEDICAID REPLACEMENT - HMO) Juliana Olguin [id number] Juliana Olguin Notes Date Note Type Note [...] medial malleolus fx. She had Xrays at [facility]-E7S EARNEST MACKEY[address], [place], [address], [facility] 08/09/2023 07:58:11 09/05/2023 text/html Pt is here for f /u of her rt ankle. She reports she continues to have significant rt ankle pain. She is not wearing her boot. She works at [employer]. We are getting new Xrays of the ankle R/T increased pain. She reports her rt knee inj was effective-E7S EARNEST MACKEY, [address], [place], [address], [facility] & [place] 09/05/2023 13:00:34 03/13/2024 text/html Pt is here for l eft knee pain with onset of about 2 months from February 2024. She reports pain with ambulation and flexing the knee. We are getting Xrays today-E1SF Jeff Costa MD [address] [place] [address],[address], [place], [address], [facility] - [facility] & [place] 03/14/2024 09:53:58 04/08/2024 text/html Patient presents in office for follow up effectiveness of left knee injection given 03/13/24. States injection was ineffective, symptoms unchanged. E1RB EARNEST MACKEY DO [address] [place] [address] Drive,[address], [place], [address], [facility] & [place] 04/09/2024 09:12:39 05/05/2024 text/html MRI results of l eft knee.MRI knee left W/O cont done @ [facility] on 04.15.24:1. Mild osteoarthritis of the medial knee joint compartment with trace joint effusion.2. Nonspecific superficial edema anterior to the patella and patellar tendon Patient states pain is worse, mostly bothering her about patellofemoral joint. Taking Ibu and Tyl. 03.13.24 left knee injection- states it didn't give any relief. E3AP EARNEST MACKEY DO [address] [place] [address] Drive,[address], [place], [address], [facility] [place] 05/05/2024 12:17:43 OBGyn Episode No OBEpisode recorded.
--- OUTSIDE RECORDS SUMMARY | 2025-01-05 20:33 | XMS_ITS | Encounter Summary ---
Author Organization [facility] Address [address] [place] [address] Care Team Providers Care Section Leader And Machine Setter Name Role Phone Pcp, No Primary Care Provider Unavailabl e Bren Lira DMD Unavailable [phone] Eugene Holloway Unavailable Unavailabl e Encounter Details [...] 01/15/2025 7:30 AM EDT Office Visit [facility] [address] [address] documented as of this encounter Visit Diagnoses Not on filedocumented in this encounter Care Teams Section Leader And Machine Setter Relationship Specialty Start Date End Date Pcp, No [address] [place] [address] PCP - General Family Medicine 09/05/24 Bren Lira DMD [address] [address] Dentist 09/18/24 Eugene Holloway Dental Student Dental Credit Underwriter 09/18/24 documented as of this encounter
--- OUTSIDE RECORDS SUMMARY | 2025-01-05 20:33 | XMS_ITS | Clinical Summary ---
Author Organization [facility] Address [address] [place] [address] Phone Care Team Providers Care Nicu Rn Name Role Phone Ryan Love MD Primary Care Provider [phone] Allergies Active Allergy Reactions Criticality Noted Date [...] patient's age to complete this topic Insurance [facility] makerSQR [facility] MDR [facility] [employer] [facility] MDR Advance Directives For more information, please contact: [phone] * Full Code (Latest Code Status on File) Date Activated Date Inactivated Comments 08/14/2021 11:15 PM 08/17/2021 5:25 PM Care Teams Nicu Rn Relationship Specialty Start Date End Date Ryan Love MD [address] [place] [address] PCP - General Family Medicine 08/14/21
--- OUTSIDE RECORDS SUMMARY | 2025-01-05 20:33 | XMS_ITS | Encounter Summary ---
Author Organization [facility] Address [address] [place] [address] Care Team Providers Care Study Director Name Role Phone Ryan Love MD Primary Care Provider [phone] Source Comments This information has been disclosed [...] release of HIV test results or diagnoses. [id number] Health Encounter Details Date Type Department Care [...] on filedocumented in this encounter Care Teams Study Director Relationship Specialty Start Date End Date Ryan Love MD [address] [place] [address] [place] [address] PCP - General Family Medicine 09/24/24 documented as of this encounter
--- OUTSIDE RECORDS SUMMARY | 2025-01-05 20:33 | XMS_ITS | Encounter Summary ---
Author Organization [facility] Address [address] [place] [address] Care Team Providers Care Assistant Media Planner Name Role Phone Ryan Love MD Primary Care Provider [phone] Source Comments This information has been disclosed [...] release of HIV test results or diagnoses. [id number] Health Encounter Details Date Type Department Care [...] on filedocumented in this encounter Care Teams Assistant Media Planner Relationship Specialty Start Date End Date Ryan Love MD [address] [place] [address] [place] [address] PCP - General Family Medicine 09/24/24 documented as of this encounter
--- OUTSIDE RECORDS SUMMARY | 2025-01-05 20:33 | XMS_ITS | Encounter Summary ---
Author Organization [facility] Address [address] [place] [address] Care Team Providers Care Content Coordinator Name Role Phone Pcp, No Primary Care Provider Unavailabl e Bren Lira DMD Unavailable Eugene Holloway Unavailable Unavailabl e Encounter Details Date Type Department Care Team (Late st Contact Info) Description 12/26/2024 Telephone [facility] screen and cyclone repairer Clinic [address] [address] Dental, Surgeon, [address] [place], [place] [id number] Social History Tobacco Use Types Packs/Day Years [...] 01/15/2025 7:30 AM EDT Office Visit [facility] screen and cyclone repairer [facility] [address] [address] documented as of this encounter Visit Diagnoses Not on filedocumented in this encounter Care Teams Content Coordinator Relationship Specialty Start Date End Date Pcp, No 800 [place] [address] PCP - General Family Medicine 09/05/24 Bren Lira, DMD [address] [address] Dentist 09/18/24 Eugene Holloway Dental Student Dental Show Operations Supervisor 09/18/24 documented as of this encounter
--- OUTSIDE RECORDS SUMMARY | 2025-01-05 20:33 | XMS_ITS | Clinical Summary ---
Author Organization [facility] Address [address] [place] [id number] Care Team Providers Care Production Clerk Name Role Phone Ryan Love MD Primary Care Provider [phone] Source Comments This information has been disclosed [...] therelease of HIV test results or diagnoses. [id number] Allergies Active Allergy Reactions Criticality Noted [...] 02/25/20 22 Active naloxone (NARCAN) 4 mg/actuation Ray Insert into either nostril then completely depress [...] EDT - 12/24/2024 12:31 AM EDT Emergency [facility] Emergency Department [address] [place] [phone] Discharge Disposition: ED Dismiss - Left Before Treatment 12/23/2024 Travel 12/20/2024 Travel 12/19/2024 11:59 PM EDT - 12/20/2024 2:59 AM EDT Emergency [facility] Emergency Department [address] [place] [phone] Discharge Disposition: ED Dismiss - Left Before Treatment 10/24/2024 9:16 PM EDT - 10/24/2024 11:40 PM EDT Emergency [facility] Emergency Department [address] [place] [phone] Doris Miller MD Chronic bilateral low back pain with bilateral sciatica (Primary Dx) Discharge Disposition: Home or Self Care WITHOUT Home Care Services 10/24/2024 Travel 10/18/2024 8:59 PM EDT - 10/18/2024 11:12 PM EDT Emergency [facility] Emergency Department [address] [place] [phone] Raghu Chiu MD Lumbar back pain (Primary [...] series) 2002 Cervical Cancer Screening/Pa p Smear (Matomy Moneyhart) 2013 Tobacco Cessation Readiness 08/02/2022 08/02/2021 Mammogram (Matomy Moneyhart) 2023 Immunization: COVID-19 ( season) 2024 11/24/2020, [...] HCG Urine, Qualitative (12/23/2024 10:28 PM EDT) [facility] hCG Qualitative -Clinitek Negative Negative 12/23/2024 10:42 PM EDT [facility] Urine 12/23/2024 10:2 8 PM EDT 12/23/2024 10:33 PM EDT us Amisha LEWIS URINE ORDERABLES Final Result Performing Organization Address City/[facility]/ZIP Co de Phone Number [facility] [address] [place] [address]. [address] * High Sensitivity Troponin (12/23/2024 10:28 PM EDT) Only the most recent of2 resultswithin the time period is included. [facility] High Sensitivity Troponin 3 0 - 14 ng/L 12/23/2024 10:58 PM EDT [facility] Serum 12/23/2024 10:2 8 PM EDT 12/23/2024 10:33 PM EDT us Amisha LEWIS LAB BLOOD ORDERABLES Final Resul t Performing Organization Address City/[facility]/ZIP Co de Phone Number [facility] [address] [facility]. [address] * (ABNORMAL) Urinalysis, Microscopic (12/23/2024 10:28 PM EDT) [facility] RBC, UA 3 0 - 3 /HPF 12/23/2024 10:59 PM EDT [facility] WBC, UA >100(H) 0 - 5 /HPF 12/23/2024 10:59 PM EDT [facility] WBC Clumps, UA Moderate(A ) None Seen /HPF 12/23/2024 10:59 PM EDT [facility] Squam Epithel, UA 1 0 - 5 /HPF 12/23/2024 10:59 PM EDT [facility] Trans Epithel, UA 2 0 - 5 /HPF 12/23/2024 10:59 PM EDT [facility] Bacteria, UA Moderate(A ) None Seen /HPF 12/23/2024 10:59 PM EDT [facility] Hyaline Casts, UA 1 0 - 2 /LPF 12/23/2024 10:59 PM EDT [facility] Urine 12/23/2024 10:2 8 PM EDT 12/23/2024 10:35 PM EDT us Amisha LEWIS URINE ORDERABLES Final Result [facility] [address] [place] [address], [facility] * (ABNORMAL) Urinalysis-Macroscopic w/Rfx to Microsco (12/23/2024 10:28 PM EDT) Color, UA Yellow Yellow,Straw 12/23/2024 10:59 PM EDT [facility] Clarity, UA Cloudy(A) Clear 12/23/2024 10:59 PM EDT [facility] Specific Lamont, UA 1.015 1.005 - 1.035 12/23/2024 10:59 PM EDT [facility] pH, UA 6.0 5.0 - 8.0 12/23/2024 10:59 PM EDT [facility] Protein, UA Negative Negative mg/dL 12/23/2024 10:59 PM EDT [facility] Glucose, UA Negative Negative mg/dL 12/23/2024 10:59 PM EDT [facility] Ketones, UA Negative Negative mg/dL 12/23/2024 10:59 PM EDT [facility] Bilirubin, UA Negative Negative 12/23/2024 10:59 PM EDT [facility] Blood, UA Trace-intact (A) Negative 12/23/2024 10:59 PM EDT [facility] Nitrite, UA Positive(A) Negative 12/23/2024 10:59 PM EDT [facility] Urobilinogen, UA 0.2 E.U./dL 0.2 - 1.0 EU/dL 12/23/2024 10:59 PM EDT [facility] Leukocyte Esterase, UA Moderate(A) Negative 12/23/2024 10:59 PM EDT [facility] Urine 12/23/2024 10:2 8 PM EDT 12/23/2024 10:33 PM EDT us Amisha LEWIS URINE ORDERABLES Final Result Performing Organization Address City/[facility]/ZIP Co de Phone Number [facility] [address] [facility]. [address] * Hepatic Function Panel (12/23/2024 10:28 PM EDT) Only the most recent of2 resultswithin the time period is included. Total Bilirubin 0.5 0.0 - 1.5 mg/dL 12/23/2024 10:52 PM EDT [facility] Bilirubin, Direct 0.3 0.0 - 0.4 mg/dL 12/23/2024 10:52 PM EDT [facility] AST 18 13 - 39 U/L 12/23/2024 10:52 PM EDT [facility] ALT 17 7 - 52 U/L 12/23/2024 10:52 PM EDT [facility] Alkaline Phosphatase 47 36 - 125 U/L 12/23/2024 10:52 PM EDT [facility] Total Protein 6.9 6.4 - 8.9 g/dL 12/23/2024 10:52 PM EDT [facility] Albumin 4.0 3.5 - 5.7 g/dL 12/23/2024 10:52 PM EDT [facility] Bilirubin, Indirect 0.2 0.0 - 1.1 mg/dL 12/23/2024 10:52 PM EDT [facility] Plasma 12/23/2024 10:2 8 PM EDT 12/23/2024 10:33 PM EDT us Amisha LEWIS LAB BLOOD ORDERABLES Final Resul t [facility] [address] * Differential (12/23/2024 10:28 PM EDT) Only the most recent of2 resultswithin the time period is included. Neutrophils Relative 54.5 40.0 - 80.0 % 12/23/2024 10:54 PM EDT [facility] Lymphocytes Relative 31.9 15.0 - 45.0 % 12/23/2024 10:54 PM EDT [facility] Monocytes Relative 7.9 0.0 - 12.0 % 12/23/2024 10:54 PM EDT [facility] Eosinophils Relative 4.8 0.0 - 8.0 % 12/23/2024 10:54 PM EDT [facility] Basophils Relative 0.9 0.0 - 1.0 % 12/23/2024 10:54 PM EDT [facility] nRBC 0 0 - 0 /100 WBC 12/23/2024 10:54 PM EDT [facility] Neutrophils Absolute 4,197 1,520 - 8,640 /uL 12/23/2024 10:54 PM EDT [facility] Lymphocytes Absolute 2,456 570 - 4,860 /uL 12/23/2024 10:54 PM EDT [facility] Monocytes Absolute 608 0 - 1,296 /uL 12/23/2024 10:54 PM EDT [facility] Eosinophils Absolute 370 0 - 864 /uL 12/23/2024 10:54 PM EDT [facility] Basophils Absolute 69 0 - 108 /uL 12/23/2024 10:54 PM EDT [facility] Whole Blood 12/23/2024 10:2 8 PM EDT 12/23/2024 10:46 PM EDT us Amisha LEWIS LAB BLOOD ORDERABLES Final Resul t [facility] [address] [place] [address], [facility] * (ABNORMAL) CBC (12/23/2024 10:28 PM EDT) Only the most recent of2 resultswithin the time period is included. WBC 7.7 3.8 - 10.8 10E3/uL 12/23/2024 10:54 PM EDT [facility] RBC 3.81 3.80 - 5.10 10E6/uL 12/23/2024 10:54 PM EDT [facility] Hemoglobin 12.6 11.7 - 15.5 g/dL 12/23/2024 10:54 PM EDT [facility] Hematocrit 37.3 35.0 - 45.0 % 12/23/2024 10:54 PM EDT [facility] MCV 98.1 80.0 - 100.0 fL 12/23/2024 10:54 PM EDT [facility] MCH 33.1(H) 27.0 - 33.0 pg 12/23/2024 10:54 PM EDT [facility] MCHC 33.8 32.0 - 36.0 g/dL 12/23/2024 10:54 PM EDT [facility] RDW 13.3 11.0 - 15.0 % 12/23/2024 10:54 PM EDT [facility] Platelets 247 140 - 400 10E3/uL 12/23/2024 10:54 PM EDT [facility] MPV 7.6 7.5 - 11.5 fL 12/23/2024 10:54 PM EDT [facility] Whole Blood 12/23/2024 10:2 8 PM EDT 12/23/2024 10:46 PM EDT us Amisha LEWIS LAB BLOOD ORDERABLES Final Resul t [facility] [address] [place] [address], [facility] * (ABNORMAL) Basic metabolic panel (12/23/2024 10:28 PM EDT) Only the most recent of2 resultswithin the time period is included. Sodium 140 133 - 146 mmol/L 12/23/2024 10:52 PM EDT [facility] Potassium 3.8 3.5 - 5.3 mmol/L 12/23/2024 10:52 PM EDT [facility] Chloride 110 98 - 110 mmol/L 12/23/2024 10:52 PM EDT [facility] CO2 24 21 - 33 mmol/L 12/23/2024 10:52 PM EDT [facility] Anion Gap 6 3 - 16 mmol/L 12/23/2024 10:52 PM EDT [facility] BUN 6(L) 7 - 25 mg/dL 12/23/2024 10:52 PM EDT [facility] Creatinine 0.88 0.60 - 1.30 mg/dL 12/23/2024 10:52 PM EDT [facility] Glucose 124(H) 70 - 100 mg/dL 12/23/2024 10:52 PM EDT [facility] Calcium 8.7 8.6 - 10.3 mg/dL 12/23/2024 10:52 PM EDT [facility] Osmolality, Calculated 289 278 - 305 mOsm/kg 12/23/2024 10:52 PM EDT [facility] EGFR 85 12/23/2024 10:52 PM EDT [facility] Comment:As of 2021, the estimated [...] LEWIS LAB BLOOD ORDERABLES Final Resul t [facility] [address] [place] [address], [facility] * X-ray Chest PA and Lateral (12/23/2024 [...] Ab Nonreactive Nonreactive 12/20/2024 2:07 AM EDT [facility] Comment:Health Department no tified in accordance with reportable infectious disease guidelines. HCVAB Number 0.05 0.00 - 0.79 S/CO 12/20/2024 2:07 AM EDT [facility] Serum 12/20/2024 12:5 6 AM EDT 12/20/2024 1:08 AM EDT us Kathryn LEWIS LAB BLOOD ORDERABLES Final Resul t [facility] [address] [place] [address], [facility] * BNP (12/20/2024 12:56 AM EDT) BNP 20 0 - 100 pg/mL 12/20/2024 2:10 AM EDT [facility] Comment: BNP may be increased in the presence of sacubitril/valsartan (Entresto). Please interpret accordingly. Plasma 12/20/2024 12:5 6 AM EDT 12/20/2024 1:10 AM EDT Narrative [facility] - 12/20/2024 2:10 AM EDT The presence of high concentrations of biotin may cause falsely lowered BNP results. Biotin interference may be seen if an individual is taking >5 mg biotin per day. Interpret BNP results in the context of the patient's clinical presentation. Kathryn LWEIS LAB BLOOD ORDERABLES Final Resul t [facility] [address] * ECG for indication of syncope (12/20/2024 12:50 AM EDT) 12/20/2024 12:5 0 AM EDT Narrative MUSE - 12/20/2024 8:16 AM EDT Ventricular Rate: 67 BPM Atrial Rate: 67 BPM P-R Interval: 154 ms QRS Duration: 88 ms QT: 394 ms QTc: 416 ms P Donaldson: 11 degrees R Donaldson: -4 degrees T Donaldson: -5 degrees Diagnosis Line: ^ INTERPRETATION NOT AVAILABLE--ECG READ IN ER ^ Confirmed by PHYSICIAN, ER ([id number]), editorial project manager Le Simon ([id number]) on 12/20/2024 8:16:14 AM Kathryn LEWIS ECG ORDERABLES Final Result MUSE from Last 3 Months Insurance Care Teams Production Clerk Relationship Specialty [place] [address] [place] [address] PCP - General Family Medicine 09/24/24
--- OUTSIDE RECORDS SUMMARY | 2025-01-05 20:33 | XMS_ITS | Data Portability ---
Author Organization [facility] Address [address] [place] [address] Care Team Providers Care Behavior Interventionist Name Role Phone BABAR ANGELES Primary Care Provider BABAR ANGELES Referring Provider Assessment Encounter Date [...] this occurred while she was living in [place]. At that time she states that she was seeing pain management in [place] undergoing treatment with a combination of medications and injections. States that she also saw surgeon in [place] who recommended lumbar fusion. Before they would [...] her to a pain management clinic in [place] however the only thing they offered were [...] CONSERVATIVE: She reports physical therapy previously in [place] without relief. INTERVENTIONAL: States injections in [place] only made her symptoms worse. SURGICAL: None. States that she saw a surgeon in [place] who recommended fusion but would not proceed [...] Much of this encounter is an electronic runstitching machine operator/tra nslation of spoken language to printed text. The electronic translation of spoken language may permit erroneous or at times nonsensical words of phrases to be inadvertently transcribed; Although I have reviewed the note for such errors, some may still exist. [email or web address] Not available 11/23/2020 10:51:32 12/21/2020 12/21/2020 INTERVAL [...] this occurred while she was living in [place]. At that time she states that she was seeing pain management in [place] undergoing treatment with a combination of medications and injections. States that she also saw surgeon in [place] who recommended lumbar fusion. Before they would [...] her to a pain management clinic in [place] however the only thing they offered were [...] CONSERVATIVE: She reports physical therapy previously in [place] without relief. INTERVENTIONAL: States injections in [place] only made her symptoms worse. SURGICAL: None. States that she saw a surgeon in [place] who recommended fusion but would not proceed [...] she had physical therapy before while in [place] and was not helpful. I have suggested [...] recorded. Lab drug screen, urine 2020 021 [facility], [address], [address], [place], [address], 10:52:30 Referral physical therapist referral [address] (Centralized Scheduling), [address] [place] [address] [place], [address], 12:12:43 Procedures None recorded. Surgeries None recorded. Imaging XR, lumbar spine 2020 021 [facility], [address] [place] [address] [place], [address], 15:22:45 Medication Orders None recorded. Patient TargetsNo targets recorded. Patient InstructionsNo instructions recorded. Reason for Referral Physical Therapist Referral for Degeneration of lumbar intervertebral disc Referring Physician: Rios Jain, Pain Management, Encounter Date: 11/23/2020 Results Created Date Observation Date Name Description Value Unit Range Abnormal Flag Note LastModifiedBy Organization Detail LastModifiedTime 11/24/19 21 11/23/2020 drug scree n, urine THC: negati ve Not Available [facility] [address], [place], [address], 11/23/2020 10:15:03 11/24/19 21 11/23/2020 drug scree n, urine Buprenorphin e: negati ve Not Available [facility] [address], [place], [address], 11/23/2020 10:15:03 11/24/19 21 11/23/2020 drug scree n, urine TCA: negati ve Not Available [facility] [address], [place], [address], 11/23/2020 10:15:03 11/24/19 21 11/23/2020 drug scree n, urine Barbiturates : negati ve Not Available [facility] [address], [place], [address], 11/23/2020 10:15:03 11/24/19 21 11/23/2020 drug scree n, urine Benzodiazepi joselyn: negati ve Not Available [facility] [address], [place], [address], 11/23/2020 10:15:03 11/24/19 21 11/23/2020 drug scree n, urine Methadone: negati ve Not Available [facility] [address], [place], [address], 11/23/2020 10:15:03 11/24/19 21 11/23/2020 drug scree n, urine Amphetamines : negati ve Not Available [facility] [address], [place], [address], 11/23/2020 10:15:03 11/24/19 21 11/23/2020 drug scree n, urine Morphine/Opi ates: negati ve Not Available [facility] [address], [place], [address], 11/23/2020 10:15:03 11/24/19 21 11/23/2020 drug scree n, urine Oxycodone: negati ve Not Available [facility] [address], [place], [address], 11/23/2020 10:15:03 11/24/19 21 11/23/2020 drug scree n, urine MDMA: negati ve Not Available [facility] [address], [place], [address], 11/23/2020 10:15:03 11/24/19 21 11/23/2020 drug scree n, urine Cocaine: negati ve Not Available [facility] [address], [place], [address], 11/23/2020 10:15:03 11/24/19 21 11/23/2020 drug scree n, urine Methamphetam ine: negati ve Not Available [facility] [address], [place], [address], 11/23/2020 10:15:03 12/16/19 21 11/24/2020 XR, lumba r spine No observ ation record ed. [facility] [address] , [place], [address], 12/15/2020 15:50:06 Result Notes None recorded. Problems Name Problem SNOMED Code Status Onset Date Resolution Date Notes Provider Name and Address Organization Details Recorded Time Degeneration of lumbar intervertebral disc 99284057 Active 2020 Mei velarde [facility] 10:32:50 Problem Notes None recorded. Procedures Surgical History Date Name Laterality Status Provider Name and Address Organization Details Recorded Time ligation of fallopian tube completed Samra Partida [facility] 12/21/2020 11:06:57 General Surgery completed Mei Wang [facility] 11/23/2020 10:20:49 Imaging Results None recorded. [...] Updated DateTime 11/23/2020 177.8 cm 41 kg/m2 017409.42 g Mei Felipe [facility] 11/23/2020 10:17:39 Date Recorded Body height Provider Name an d Address Organization Details Last Updated DateTime 12/21/2020 177.8 cm Samratrish Partida [facility] 12/21/2020 11:05:41 Social History Question Answer Notes LastModified by Organizat ion Details LastModified Time Tobacco Smoking Status Current Every Day Smoker Mei Wang syd [facility] 11/23/2020 10:19:59 What Is Your Level Of Caffeine Consumption? Heavy [email or web address] Information not available 11/23/2020 How Much Tobacco Do You Chew? None [email or web address] Information not available 11/23/2020 Are You Deaf Or Do You Have Serious Difficulty Hearing? No [email or web address] Information not available 11/23/2020 Which Illicit Or Recreational Drugs Have You Used? DENIES [email or web address] Information not available 11/23/2020 Education 12 [email or web address] Information no t available 11/23/2020 Hard Of Hearing Or Deaf In One Or Both Ears? No Information not available 11/23/2020 Prescription Drug Abuse No [email or web address] Information not available 11/23/2020 Disability No [email or web address] Information no t available 11/23/2020 History Of Sexual Abuse No Information not available 11/23/2020 Marital Status [email or web address] Informatio n not available 11/23/2020 What Was The Date Of Your Most Recent Tobacco Screening? 12/21/2020 Information not available 12/21/2020 At What Age Did You Start Smoking Tobacco? 12 [email or web address] Information not available 11/23/2020 How Much Tobacco Do You Smoke? 2 PPW [email or web address] Information not available 11/23/2020 General Stress Level High [email or web address] Information not available 11/23/2020 On What Date Was Tobacco Cessation Counseling Provided? 12/21/2020 [email or web address] Information not available 12/21/2020 How Many Years Have You Smoked Tobacco? 23 [email or web address] Information not available 11/23/2020 Do You Have Difficulty Walking Or Climbing Stairs? Yes [email or web address] Information not available 11/23/2020 Sex: Unknown Functional Status Question Answer Note LastModified by Organizat ion Details LastModified Time What is your level of alcohol consumption? Occasional [email or web address] Information not available 11/23/2020 Do you or have you ever used smokeless tobacco? Never used smokeless tobacco [email or web address] Information not available 11/23/2020 Are you able to walk? YESWOREST [email or web address] Information not available 11/23/2020 Do you have difficulty doing errands alone? 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 Yes [email or web address] Information not available 11/23/2020 Do you or have you ever used e-cigarettes or vape? Never used electronic cigarettes [email or web address] Information not available 11/23/2020 What is your exercise level? Moderate Information not available 11/23/2020 Mental Status Question Answer Note LastModified by Organization D etails LastModified Time Do you have difficulty concentrating, remembering or making decisions? Yes [email or web address] Information no t available 11/23/2020 Family History Relationship Description Onset Age of this Age Resolved Age Notes LastModified by Organization Details LastModified Time Paternal Grandfather Heart disease [email or web address] Not available 11/23 10:17:51 Maternal Grandmother Hypertensive disorder [email or web address] Not available 11/23 10:17:51 Maternal Grandmother Heart disease [email or web address] Not available 11/23 10:17:51 Mother Diabetes mellitus Not available 11/23 10:17:51 Mother Fibromyalgia [email or web address] Not augie ilable 11/23/2020 10:17:51 Mother Heart disease [email or web address] Not available 11/23 10:17:51 Mother Mental disorder [email or web address] Not available 11/23 10:17:51 Mother Hypertensive disorder [email or web address] Not available 11/23 10:17:51 Mother Rheumatoid arthritis [email or web address] Not available 11/23 10:17:51 Medical History Condition Response Bipolar Disease N Coronary Artery Disease N Gout Y Seizure Disorder N Thyroid Disease N Atrial Fibrillation N Hernia N Head Trauma/Injury N COPD N Depression Y Anxiety Disorder Y Acid Reflux (GERD) N Cancer N Skin Disorder N Stroke N High Cholesterol Y Liver Disease N Rheumatoid Arthritis N Fibromyalgia N Headaches Y Autoimmune Disease Y Kidney Disease N Osteoarthritis Y Neurosurgery N DVT N Peptic Ulcer Disease N Anemia Y Heart Attack (PR) Y Diabetes Y Cardiomyopathy N Bleeding Disorder [...] SNOMED-CT Code Diagnosis ICD10 Code Diagnosis Note [id number] Rios Jain MD [facility] [address] [address] 11/23/2020 09:38:35 11/23/2020 10:42:34 Long-term drug therapy 616928591 Z79.899 Degenerati on of lumbar intervertebral disc 09529363 M51.36 [id number] Rios Jain MD [facility] [address] [address] 12/21/2020 10:52:18 12/21/2020 11:17:14 Degeneration of lumbar intervertebral disc 59044682 M51.36 Long-term drug therapy 691915381 Z79.899 Health Concerns Section Related Observation LastModified by Organization Detai ls LastModified Time None Recorded Concern Status LastModified by Organization Details LastModified Time None Recorded Advance Directives Directive None Recorded Payers Insurance Date Sequence Insurance Name Policy Number Policy Cunningham Covered Member ID Cunningham Member ID Guarantor Name 02/19/2021 1 [facility] (MEDICAID REPLACEMENT - HMO) Juliana Olguin [id number] Juliana Olguin Notes Date Note Type Note [...] to bathe/groom without assistance.; Able to complete information systems security officer without much difficulty.; Walking without assistance or significant difficulty; Working without restriction.;Diffic ulty exercising on a regular basis secondary to pain.;Difficulty participating in recreation on a regular basis secondary to pain. Rios Jain MD [address] [place] [address], [phone] 11/23/2020 10:53:00 12/21/2020 text/html Follow-up (meds [...] to bathe/groom without assistance.; Able to complete information systems security officer.; Walking without assistance.; Working.; Exercising. Neuroflow:Not UtilizingLow [...] to bathe/groom without assistance.; Able to complete information systems security officer without much difficulty.; Walking without assistance or significant difficulty; Working without restriction.;Diffic ulty exercising on a regular basis secondary to pain.;Difficulty participating in recreation on a regular basis secondary to pain. DEBBIE REGAN [address] [place] [address], [phone], [facility] 12/21/2020 12:47:49 OBGyn Episode No OBEpisode recorded.
--- OUTSIDE RECORDS SUMMARY | 2025-01-05 20:33 | XMS_ITS | Clinical Summary ---
Author Organization [facility] Address [address] [place] [address] Care Team Providers Care Chicken Hanger Name Role Phone Pcp, No Primary Care Provider Unavailabl e Bren Lira DMD Unavailable Eugene Holloway Unavailable Unavailabl e Allergies No known active allergies Medications HYDROcodone-acetami nophen ([place]) 5-325 MG tabletIndications:P ain,Back pain Take 1 [...] Description 12/26/2024 2:30 PM EDT Evaluation [facility] [address] [phone] kAin Shay, DMD Oral mucosal lesion (Primary Dx) 12/26/2024 Travel 12/26/2024 Telephone [facility] [address] [phone] Dental, SurgeonMD 12/25/2024 Telephone [facility] [address] [address] Dental, SurgeonMD 11/09/2024 Travel from Last 3 [...] 01/15/2025 7:30 AM EDT Office Visit [facility] [address] [place] [phone] Health Maintenance Due Date Last Done Comments [...] of 3 - 19+ 3-dose series) 2002 [id number] Vaccine (3 - season) 2024 11/24/2020, 10/27/2020 [...] Most Recently Relevant to Health Maintenance Insurance [address] Care Teams Chicken Hanger Relationship Specialty Start Date End Date Pcp, No [address] [place] [address] PCP - General Family Medicine 09/05/24 Bren Lira, DASHAWN [address] [address] Dentist 09/18/24 Eugene Holloway Dental Student Dental Glass Carrier 09/18/24
--- OUTSIDE RECORDS SUMMARY | 2025-01-05 20:33 | XMS_ITS | Encounter Summary ---
Author Organization Healthcare Address [address] [place] [address] Care Team Providers Care Penology Teacher Name Role Phone Pcp, No Primary Care Provider Unavailabl e Bren Lira DMD Unavailable Eugene Holloway Unavailable Unavailabl e Encounter Details Date Type Department Care Team (Late Contact Info) Description 12/25/2024 Telephone [facility] [address] [address] Dental, Surgeon, [address] [place] [address] Social History Tobacco Use Types Packs/Day Years [...] Department Care Team (Late Contact Info) Description 01/15/2025 7:30 AM EDT Office Visit [facility] [address] [address] documented as of this encounter Visit Diagnoses Not on filedocumented in this encounter Care Teams Penology Teacher Relationship Specialty Start Date End Date Pcp, No [address] [place] [address] PCP - General Family Medicine 09/05/24 Bren Lira, DASHAWN [address] [address] Dentist 09/18/24 Eugene Holloway Dental Student Dental Script Artist 09/18/24 documented as of this encounter
== END ==
LOC: SL 20:31
PROVIDERS: PCP Family Medicine; Visit Provider Nurse Practitioner
DX: R53.83 Other fatigue; Z72.820 Sleep deprivation
CPT/HCPCS: 95810

== ENCOUNTER 2025-01-09 14:47 | Outpatient (CLI) | payer OTHER, SELFPAY ==
--- OUTSIDE RECORDS SUMMARY | 2022-06-14 07:09 | XMS_ITS | Continuity of Care Document ---
Author Organization [facility] o Address [address] [place] [address] Phone Care Team Providers Care Telephone Sterilizer Name Role Phone Lawson PHILLIPS, Rios Unavailable Unavailabl e Advance Directives Directive Yes / No Effective Date File Name No Information Encounters Encounter Description Practice Location Reason(s) For Visit Diagnoses Date Provider Providers Copied on Encounter [facility] [place], [facility] [place], [place], [facility], tel:[phone] 00 [facility] No Information 2 [facility]. [address] [place], [place], [facility], . tel:[phone] Family History Family Member Type Diagnosis Age [...]
--- OUTSIDE RECORDS SUMMARY | 2024-12-19 23:59 | XMS_ITS | Encounter Summary ---
Author Organization [facility] Address [address] [place] [id number] Care Team Providers Care Priest Name Role Phone Ryan Love MD Primary Care Provider [phone] Source Comments This information has been disclosed [...] release of HIV test results or diagnoses. [id number] Reason for Visit * Reason Comments Ankle Swelling Encounter Details Date Type Department Care Team (Late st Contact Info) Description 12/19/2024 11:59 PM EDT - 12/20/2024 2:59 AM EDT Emergency [facility] Emergency Department [address] [place] [id number] Discharge Disposition: ED Dismiss - Left [...] this encounter Medications at Time of Discharge albuterol (VENTOLIN HFA) 90 mcg/actuation Inhl inhaler Inhale 2 puffs into the lungs every 6 hours as needed for Shortness of Breath. 11/23/2020 aspirin 81 MG EC tablet Take 1 tablet (81 mg total) by mouth daily. 11/07/2021 cloNIDine HCL (CATAPRES) 0.1 MG tablet Take 1 tablet (0.1 mg total) by mouth 2 times a day as needed. diphenhydrAMINE (BENADRYL) 50 MG capsule Take 1 capsule (50 mg total) by mouth every 6 hours as needed for Itching. metoprolol succinate (TOPROL-XL) 25 MG 24 hr tablet Take 0.5 tablets (12.5 mg total) by mouth daily. 11/07/2021 QUEtiapine (SEROQUEL) 50 MG tablet Take 1 tablet (50 mg total) by mouth at bedtime. 10/24/2021 ALBUTEROL INHL Inhale into the lungs. 2 Puffs Daily PRN 01/09/20 25 calcium citrate-vitamin D (CITRACAL+D) 315 mg-5 mcg (200 unit) Take 1 tablet by mouth daily. 01/10/20 25 clonazePAM (KLONOPIN) 0.5 MG tablet Take 1 tablet (0.5 mg total) by mouth 2 times a day as needed for Anxiety. 01/10/20 25 cyclobenzaprine (FLEXERIL) 10 MG tablet Take 1 tablet (10 mg total) by mouth 3 times a day as needed for Muscle spasms. 01/10/20 25 fluticasone propionate (FLONASE) 50 mcg/actuation nasal spray Use 1 spray into each nostril daily. 01/10/20 25 gabapentin (NEURONTIN) 300 MG capsuleIndications :Lumbar radiculopathy TAKE 1 CAPSULE (300 MG TOTAL) BY MOUTH 3 TIMES A DAY. 90 capsule 03/16/2022 01/10/20 25 levonorgestreL (MIRENA) 20 mcg/24 hours (7 yrs) 52 mg IUD 1 Intra Uterine Device by Intrauterine route continuous. 01/10/20 25 lidocaine (LIDODERM) 5 % Place 1 patch onto the skin daily. Apply patch for 12 hours and then remove patch and leave off for 12 hours. 30 patch 02/24/2022 01/10/20 25 metaxalone (SKELAXIN) 800 MG tablet Take 1 tablet (800 mg total) by mouth 3 times a day. 01/10/20 25 methylPREDNISolone (MEDROL, ISMAEL,) 4 mg tablet Take as instructed in package 21 tablet 02/15/2022 01/10/20 25 naloxone (NARCAN) 4 mg/actuation SpryIndications:Delilah mbar radiculopathy Apply 1 spray in one nostril if needed. Call 911. May repeat dose in other nostril if no response in 3 minutes. 2 each 1 08/02/2021 01/10/20 25 naloxone (NARCAN) 4 mg/actuation [place] Insert into either nostril then completely depress plunger to give dose of naloxone. Use as needed for opiate/narcotic overdose that leads to decreased breathing or no breathing 2 each 02/24/2022 01/10/20 25 norgestimate-ethin yl estradioL (ORTHO-CYCLEN) 0.25-35 mg-mcg per tablet Take 1 tablet by mouth daily. 01/10/20 25 OXcarbazepine (TRILEPTAL) 300 MG tablet Take 1 tablet (300 mg total) by mouth 2 times a day. 01/10/20 25 oxyCODONE (OXY-IR) 5 mg capsule Take 1 capsule (5 mg total) by mouth every 6 hours as needed for Pain. 01/10/20 25 oxyCODONE-acetamin ophen (PERCOCET) 10-325 mg per tablet Take 1 tablet by mouth in the morning and at bedtime. 01/10/20 25 documented as of this encounter Nursing Notes * Obi Valdovinos RN - 12/20/2024 12:01 AM EDT [place] [facility] [place] of [place] of the ankles [...] a room. PIV removed. Pt ambulate from [facility] in stable condition. documented in this encounter Miscellaneous Notes * ED Medical Screening Exam - DEBBIE Mcneil - 12/20/2024 12:28 AM EDT [facility] for Emergency Care Provider Note MEDICAL SCREENING EXAM Date of Service: 12/20/2024 Reason for Visit: Ankle Swelling MSE Plan The patient was briefly evaluated from the [facility] for a medical screening exam. In short, [...] The patient will be held in the [facility] untila treatment space is made available. Brief [...] Disp: , Rfl: naloxone (NARCAN) 4 mg/actuation [place], Apply 1 spray in one nostril if needed. Call 911. May repeatdose in other nostril if no response in 3 minutes., Disp: 2 each, Rfl: 1 naloxone (NARCAN) 4 mg/actuation [place], Insert into either nostril then completely depress [...] High Sensitivity Troponin (12/20/2024 12:57 AM EDT) Pathologist [facility] High Sensitivity Troponin 3 0 - 14 ng/L 12/20/2024 1:30 AM EDT [facility] Serum 12/20/2024 12:5 7 AM EDT 12/20/2024 1:04 AM EDT Kathryn LEWIS LAB BLOOD ORDERABLES Final Resul t [facility] [address] * Hepatic Function Panel (12/20/2024 12:56 AM EDT) Pathologist [facility] Total Bilirubin 0.6 0.0 - 1.5 mg/dL 12/20/2024 1:22 AM EDT [facility] Bilirubin, Direct 0.1 0.0 - 0.4 mg/dL 12/20/2024 1:22 AM EDT [facility] AST 19 13 - 39 U/L 12/20/2024 1:22 AM EDT [facility] ALT 24 7 - 52 U/L 12/20/2024 1:22 AM EDT [facility] Alkaline Phosphatase 52 36 - 125 U/L 12/20/2024 1:22 AM EDT [facility] Total Protein 6.5 6.4 - 8.9 g/dL 12/20/2024 1:22 AM EDT [facility] Albumin 3.7 3.5 - 5.7 g/dL 12/20/2024 1:22 AM EDT [facility] Bilirubin, Indirect 0.5 0.0 - 1.1 mg/dL 12/20/2024 1:22 AM EDT [facility] Plasma 12/20/2024 12:5 6 AM EDT 12/20/2024 1:04 AM EDT Kathryn LEWIS LAB BLOOD ORDERABLES Final Resul t [facility] [address] * BNP (12/20/2024 12:56 AM EDT) BNP 20 0 - 100 pg/mL 12/20/2024 2:10 AM EDT [facility] Comment: BNP may be increased in the presence of sacubitril/valsartan (Entresto). Please interpret accordingly. Plasma 12/20/2024 12:5 6 AM EDT 12/20/2024 1:10 AM EDT Narrative [facility] - 12/20/2024 2:10 AM EDT The presence of high concentrations of biotin may cause falsely lowered BNP results. Biotin interference may be seen if an individual is taking >5 mg biotin per day. Interpret BNP results in the context of the patient's clinical presentation. Kathryn LEWIS LAB BLOOD ORDERABLES Final Resul t [facility] [address] * (ABNORMAL) Differential (12/20/2024 12:56 AM EDT) Pathologist [facility] Neutrophils Relative 55.1 40.0 - 80.0 % 12/20/2024 1:29 AM EDT [facility] Lymphocytes Relative 30.9 15.0 - 45.0 % 12/20/2024 1:29 AM EDT [facility] Monocytes Relative 7.3 0.0 - 12.0 % 12/20/2024 1:29 AM EDT [facility] Eosinophils Relative 4.7 0.0 - 8.0 % 12/20/2024 1:29 AM EDT [facility] Basophils Relative 2.0(H) 0.0 - 1.0 % 12/20/2024 1:29 AM EDT [facility] nRBC 0 0 - 0 /100 WBC 12/20/2024 1:29 AM EDT [facility] Neutrophils Absolute 4,739 1,520 - 8,640 /uL 12/20/2024 1:29 AM EDT [facility] Lymphocytes Absolute 2,657 570 - 4,860 /uL 12/20/2024 1:29 AM EDT [facility] Monocytes Absolute 628 0 - 1,296 /uL 12/20/2024 1:29 AM EDT [facility] Eosinophils Absolute 404 0 - 864 /uL 12/20/2024 1:29 AM EDT [facility] Basophils Absolute 172(H) 0 - 108 /uL 12/20/2024 1:29 AM EDT [facility] Whole Blood 12/20/2024 12:5 6 AM EDT 12/20/2024 1:10 AM EDT us Kathryn LEWIS LAB BLOOD ORDERABLES Final Resul t [facility] [address] [facility] [place] [address], [facility] * (ABNORMAL) CBC (12/20/2024 12:56 AM EDT) WBC 8.6 3.8 - 10.8 10E3/uL 12/20/2024 1:29 AM EDT [facility] RBC 3.75(L) 3.80 - 5.10 10E6/uL 12/20/2024 1:29 AM EDT [facility] Hemoglobin 12.6 11.7 - 15.5 g/dL 12/20/2024 1:29 AM EDT [facility] Hematocrit 36.3 35.0 - 45.0 % 12/20/2024 1:29 AM EDT [facility] MCV 96.8 80.0 - 100.0 fL 12/20/2024 1:29 AM EDT [facility] MCH 33.7(H) 27.0 - 33.0 pg 12/20/2024 1:29 AM EDT [facility] MCHC 34.8 32.0 - 36.0 g/dL 12/20/2024 1:29 AM EDT [facility] RDW 13.4 11.0 - 15.0 % 12/20/2024 1:29 AM EDT [facility] Platelets 244 140 - 400 10E3/uL 12/20/2024 1:29 AM EDT [facility] MPV 7.6 7.5 - 11.5 fL 12/20/2024 1:29 AM EDT [facility] Whole Blood 12/20/2024 12:5 6 AM EDT 12/20/2024 1:10 AM EDT Kathryn LEWIS LAB BLOOD ORDERABLES Final Resul t [facility] [address] [facility]. [address] * ED HCV Ab Reflex To HCV Quant (12/20/2024 12:56 AM EDT) HCV Ab Nonreactive Nonreactive 12/20/2024 2:07 AM EDT [facility] Comment:Health Department no tified in accordance with reportable infectious disease guidelines. HCVAB Number 0.05 0.00 - 0.79 S/CO 12/20/2024 2:07 AM EDT [facility] Serum 12/20/2024 12:5 6 AM EDT 12/20/2024 1:08 AM EDT Kathryn LEWIS LAB BLOOD ORDERABLES Final Resul t Performing Organization Address [facility] Co de Phone Number [facility] [address] [facility]. [address] * (ABNORMAL) Basic metabolic panel (12/20/2024 12:56 AM EDT) Sodium 138 133 - 146 mmol/L 12/20/2024 1:22 AM EDT [facility] Potassium 3.7 3.5 - 5.3 mmol/L 12/20/2024 1:22 AM EDT [facility] Chloride 107 98 - 110 mmol/L 12/20/2024 1:22 AM EDT [facility] CO2 25 21 - 33 mmol/L 12/20/2024 1:22 AM EDT [facility] Anion Gap 6 3 - 16 mmol/L 12/20/2024 1:22 AM EDT [facility] BUN 9 7 - 25 mg/dL 12/20/2024 1:22 AM EDT [facility] Creatinine 0.75 0.60 - 1.30 mg/dL 12/20/2024 1:22 AM EDT [facility] Glucose 107(H) 70 - 100 mg/dL 12/20/2024 1:22 AM EDT [facility] Calcium 8.6 8.6 - 10.3 mg/dL 12/20/2024 1:22 AM EDT [facility] Osmolality, Calculated 285 278 - 305 mOsm/kg 12/20/2024 1:22 AM EDT [facility] EGFR >90 12/20/2024 1:22 AM EDT [facility] Comment: As of 2021, the estimated [...] LEWIS LAB BLOOD ORDERABLES Final Resul t [facility] [address] [place] [address], [facility] * ECG for indication of syncope (12/20/2024 12:50 AM EDT) 12/20/2024 12:5 0 AM EDT Narrative MUSE - 12/20/2024 8:16 AM EDT Ventricular Rate: 67 BPM Atrial Rate: 67 BPM P-R Interval: 154 ms QRS Duration: 88 ms QT: 394 ms QTc: 416 ms P [place]: 11 degrees R [place]: -4 degrees T [place]: -5 degrees Diagnosis Line: ^ INTERPRETATION NOT AVAILABLE--ECG READ IN ER ^ Confirmed by PHYSICIAN, ER ([id number]), managing editor Le Simon ([id number]) on 12/20/2024 8:16:14 AM Kathryn LEWIS ECG ORDERABLES Final Result MUSE documented in this encounter Visit Diagnoses Not on filedocumented in this encounter Care Teams Priest Relationship Specialty Start Date End Date Ryan Love MD [address] [place] [address] PCP - General Family Medicine 09/24/24 documented as of this encounter
--- OUTSIDE RECORDS SUMMARY | 2024-12-23 21:46 | XMS_ITS | Encounter Summary ---
Author Organization [facility] Address [address] [place] [id number] Care Team Providers Care Voting Machine Repairer Name Role Phone Ryan Love MD Primary Care Provider [phone] Source Comments This information has been disclosed [...] release of HIV test results or diagnoses. [id number] Reason for Visit * Reason Comments Foot Swelling Bilateral Fall Encounter Details Date Type Department Care Team (Late st Contact Info) Description 12/23/2024 9:46 PM EDT - 12/24/2024 12:31 AM EDT Emergency [facility] Emergency Department [address] [place] [phone] Discharge Disposition: ED Dismiss - Left Before [...] Sign Reading Time Taken Comments Blood Pressure 133/72 12/23/2024 9:52 PM EDT Pulse 77 12/23/2024 9:52 PM EDT Temperature 37 C (98.6 F) 12/23/2024 9:52 PM EDT Respiratory Rate 18 12/23/2024 9:52 PM EDT Oxygen Saturation 100% 12/23/2024 9:52 PM EDT Inhaled Oxygen Concentration 100% 12/23/2024 9 :52 PM EDT Weight - - Height - - [...] 08/02/2021 01/10/20 25 naloxone (NARCAN) 4 mg/actuation Vazquez Insert into either nostril then completely depress [...] 01/10/20 25 documented as of this encounter ED Notes * Rubina Savage RN - 12/24/2024 12:30 AM EDT Pt to desk stating she would like to leave and cannot wait any longer. Pt states she has PCP appt tomorrow, PIV removed and pt ambulatory leaving dept documented in this encounter Miscellaneous Notes * ED Medical Screening Exam - DEBBIE Avila - 12/24/2024 12:31 AM EDT [facility] ED Callback Note Juliana Olguin is a 39 y.o. female patient who presented to the Emergency Department on December 23, 2024 with a chief complaint of bilateral lower extremity edema and falls who Left Before Treatment Complete. Patient's chart was reviewed and notable for the following abnormal results: Urinalysis showedpositive nitrites, positive leukocytes with greater than 100 white blood cells and white blood cellclumps. As such, I called the patient and was able to discuss their abnormal result(s) with them. We agreed upon the following plan for the patient to address their abnormal result: The patient states she has no dysuria or urinary frequency and denies back or flank pain. She states she has an appoin tment with her primary care physician tomorrow afternoon at 2:40 PM. She will follow-up with them as scheduled but will go to the emergency department should her symptoms worsen patient understands and agrees with this plan. DEBBIE [facility] This note was dictated using voice-recognition software, which occasionally leads to inadvertent typographic errors. Cosigned by Sam Eduardo III, MD at 12/24/2024 7:59 PM EDT * ED Medical Screening Exam - DEBBIE Shetty - 12/23/2024 10:11 PM EDT [facility] MEDICAL SCREENING EXAM Date of Service: 12/23/2024 Reason for Visit: Foot Swelling (Bilateral ) and Fall MSE Plan Patient evaluated from the lobby for a medical screening exam. In short, this is a patient presenting with bilateral lower leg edema and falls. To further evaluate their complaints, the following orders have been placed: Labs Reviewed BASIC METABOLIC PANEL CBC DIFFERENTIAL HIGH SENSITIVITY TROPONIN HEPATIC FUNCTION PANEL HIGH SENSITIVITY TROPONIN X-ray Chest PA and Lateral (Results Pending) No results found for this or any previous visit (from the past 4160 hours). Stable for lobby while awaiting ED bed. See primary provider's note for full details and final disposition. Brief HPI Juliana Olguin is a 39 y.o. female presenting with bilateral lower leg edema and falls. Symptoms have been present over the last few weeks. She reports swelling in her lower legs and feet that normally get better when she takes her diuretic. She has been compliant with taking Lasix and spironolactone, reports decreased urine output and persistent swelling. No improvement with elevation of her legs. No chest pain or shortness of breath, no fevers or chills. Also reports intermittent episodes of falls, cannot tell me what is causing these falls but they have been happening 2 or 3 times a week. She does not know if her legs are giving out on her, but doesnot believe that she is tripping or having episodes of syncope. She lays on the ground for about a minute and then gets up without difficulty. Pertinent Physical Exam ED Triage Vitals Encounter Vitals Group BP 12/23/242151 133/72 Systolic BP Percentile -- Diastolic BP Percentile -- Heart Rate 12/23/242151 77 Resp 12/23/242151 18 Temp 12/23/242151 98.6 ??F (37 ??C) Temp Source 12/23/242151 Oral SpO2 12/23/242151 100 % Weight -- Height -- Head Circumference -- Peak Flow -- Pain Score 12/23/242147 Zero Pain Loc -- Pain Education -- Exclude from Growth Chart -- Physical Exam Constitutional: Appearance: Normal appearance. HENT: Head: Normocephalic. Cardiovascular: Rate and Rhythm: Normal rate and regular rhythm. Pulses: Normal pulses. Pulmonary: Effort: Pulmonary effort is normal. No respiratory distress. Breath sounds: Normal breath sounds. Musculoskeletal: Right lower leg: Edema present. Left lower leg: Edema present. Neurological: Mental Status: She is alert. Gait: Gait normal. Psychiatric: Mood and Affect: Mood normal. Patient History Medical History: Past Medical History: Diagnosis [...] Disp: , Rfl: naloxone (NARCAN) 4 mg/actuation Vazquez, Apply 1 spray in one nostril if needed. Call 911. May repeatdose in other nostril if no response in 3 minutes., Disp: 2 each, Rfl: 1 naloxone (NARCAN) 4 mg/actuation Vazquez, Insert into either nostril then completely depress [...] tablets (100 mg total)., Disp: , Rfl: Allergies: Allergies[1] DEBBIE Shetty [1] Allergies Allergen Reactions Moxifloxacin documented in this encounter Plan of Treatment Not on file documented as of this encounter Procedures Procedure Name Priority Date/Time Associated Diagnosis Comments HCG URINE, QUALITATIVE STAT 12/23/2024 10:28 PM EDT HIGH SENSITIVITY TROPONIN STAT 12/23/2024 10:28 PM EDT URINALYSIS, MICROSCOPIC STAT 12/23/2024 10:28 PM EDT URINALYSIS-MACROSCOPI C W/REFLEX TO MICROSCOPIC STAT 12/23/2024 10:28 PM EDT HEPATIC FUNCTION PANEL STAT 12/23/2024 10:28 PM EDT DIFFERENTIAL STAT 12/23/2024 10:28 PM EDT CBC STAT 12/23/2024 10:28 PM EDT BASIC METABOLIC PANEL STAT 12/23/2024 10:28 PM EDT XR CHEST PA AND LATERAL ROBERT 12/23/2024 10:24 PM EDT documented in this encounter Results * (ABNORMAL) Urinalysis, Microscopic (12/23/2024 10:28 PM EDT) RBC, UA 3 0 - 3 /HPF 12/23/2024 10:59 PM EDT [facility] WBC, UA >100(H) 0 - 5 /HPF 12/23/2024 10:59 PM EDT [facility] WBC Clumps, UA Moderate(A ) None Seen /HPF 12/23/2024 10:59 PM EDT [facility] Squam Epithel, UA 1 0 - 5 /HPF 12/23/2024 10:59 PM EDT [facility] Trans Epithel, UA 2 0 - 5 /HPF 12/23/2024 10:59 PM EDT [facility] Bacteria, UA Moderate(A ) None Seen /HPF 12/23/2024 10:59 PM EDT [facility] Hyaline Casts, UA 1 0 - 2 /LPF 12/23/2024 10:59 PM EDT [facility] Urine 12/23/2024 10:2 8 PM EDT 12/23/2024 10:35 PM EDT us Amisha LEWIS URINE ORDERABLES Final Result [facility] [address] [place] [address], [facility] * HCG Urine, Qualitative (12/23/2024 10:28 PM EDT) hCG Qualitative -Clinitek Negative Negative 12/23/2024 10:42 PM EDT [facility] Urine 12/23/2024 10:2 8 PM EDT 12/23/2024 10:33 PM EDT us Amisha LWEIS URINE ORDERABLES Final Result Performing Organization Address City/State/[facility] Co de Phone Number [facility] [address] [id number], [facility] * (ABNORMAL) Urinalysis-Macroscopic w/Rfx to Microsco (12/23/2024 10:28 PM EDT) Color, UA Yellow Yellow,Straw 12/23/2024 10:59 PM EDT [facility] Clarity, UA Cloudy(A) Clear 12/23/2024 10:59 PM EDT [facility] Specific [place], UA 1.015 1.005 - 1.035 12/23/2024 10:59 PM EDT [facility] pH, UA 6.0 5.0 - 8.0 12/23/2024 10:59 PM EDT [facility] Protein, UA Negative Negative mg/dL 12/23/2024 10:59 PM EDT [facility] Glucose, UA Negative Negative mg/dL 12/23/2024 10:59 PM EDT [facility] Ketones, UA Negative Negative mg/dL 12/23/2024 10:59 PM EDT [facility] Bilirubin, UA Negative Negative 12/23/2024 10:59 PM EDT [facility] Blood, UA Trace-intact (A) Negative 12/23/2024 10:59 PM EDT [facility] Nitrite, UA Positive(A) Negative 12/23/2024 10:59 PM EDT [facility] Urobilinogen, UA 0.2 E.U./dL 0.2 - 1.0 EU/dL 12/23/2024 10:59 PM EDT [facility] Leukocyte Esterase, UA Moderate(A) Negative 12/23/2024 10:59 PM EDT [facility] Urine 12/23/2024 10:2 8 PM EDT 12/23/2024 10:33 PM EDT us Amisha LEWIS URINE ORDERABLES Final Result [facility] [address] [facility]. [address] * High Sensitivity Troponin (12/23/2024 10:28 PM EDT) Pathologist [facility] High Sensitivity Troponin 3 0 - 14 ng/L 12/23/2024 10:58 PM EDT [facility] Serum 12/23/2024 10:2 8 PM EDT 12/23/2024 10:33 PM EDT us Amisha LEWIS LAB BLOOD ORDERABLES Final Resul t Performing Organization Address [facility] Co de Phone Number [facility] [address] [facility]. [address] * Hepatic Function Panel (12/23/2024 10:28 PM EDT) Pathologist [facility] Total Bilirubin 0.5 0.0 - 1.5 mg/dL 12/23/2024 10:52 PM EDT [facility] Bilirubin, Direct 0.3 0.0 - 0.4 mg/dL 12/23/2024 10:52 PM EDT [facility] AST 18 13 - 39 U/L 12/23/2024 10:52 PM EDT [facility] ALT 17 7 - 52 U/L 12/23/2024 10:52 PM EDT [facility] Alkaline Phosphatase 47 36 - 125 U/L 12/23/2024 10:52 PM EDT [facility] Total Protein 6.9 6.4 - 8.9 g/dL 12/23/2024 10:52 PM EDT [facility] Albumin 4.0 3.5 - 5.7 g/dL 12/23/2024 10:52 PM EDT [facility] Bilirubin, Indirect 0.2 0.0 - 1.1 mg/dL 12/23/2024 10:52 PM EDT [facility] Plasma 12/23/2024 10:2 8 PM EDT 12/23/2024 10:33 PM EDT us Amisha LEWIS LAB BLOOD ORDERABLES Final Resul t [facility] [address] [facility]. [address] * Differential (12/23/2024 10:28 PM EDT) Neutrophils Relative 54.5 40.0 - 80.0 % 12/23/2024 10:54 PM EDT [facility] Lymphocytes Relative 31.9 15.0 - 45.0 % 12/23/2024 10:54 PM EDT [facility] Monocytes Relative 7.9 0.0 - 12.0 % 12/23/2024 10:54 PM EDT [facility] Eosinophils Relative 4.8 0.0 - 8.0 % 12/23/2024 10:54 PM EDT [facility] Basophils Relative 0.9 0.0 - 1.0 % 12/23/2024 10:54 PM EDT [facility] nRBC 0 0 - 0 /100 WBC 12/23/2024 10:54 PM EDT [facility] Neutrophils Absolute 4,197 1,520 - 8,640 /uL 12/23/2024 10:54 PM EDT [facility] Lymphocytes Absolute 2,456 570 - 4,860 /uL 12/23/2024 10:54 PM EDT [facility] Monocytes Absolute 608 0 - 1,296 /uL 12/23/2024 10:54 PM EDT [facility] Eosinophils Absolute 370 0 - 864 /uL 12/23/2024 10:54 PM EDT [facility] Basophils Absolute 69 0 - 108 /uL 12/23/2024 10:54 PM EDT [facility] Whole Blood 12/23/2024 10:2 8 PM EDT 12/23/2024 10:46 PM EDT us Amisha LEWIS LAB BLOOD ORDERABLES Final Resul t [facility] [address] [facility]. [address] * (ABNORMAL) CBC (12/23/2024 10:28 PM EDT) WBC 7.7 3.8 - 10.8 10E3/uL 12/23/2024 10:54 PM EDT [facility] RBC 3.81 3.80 - 5.10 10E6/uL 12/23/2024 10:54 PM EDT [facility] Hemoglobin 12.6 11.7 - 15.5 g/dL 12/23/2024 10:54 PM EDT [facility] Hematocrit 37.3 35.0 - 45.0 % 12/23/2024 10:54 PM EDT [facility] MCV 98.1 80.0 - 100.0 fL 12/23/2024 10:54 PM EDT [facility] MCH 33.1(H) 27.0 - 33.0 pg 12/23/2024 10:54 PM EDT [facility] MCHC 33.8 32.0 - 36.0 g/dL 12/23/2024 10:54 PM EDT [facility] RDW 13.3 11.0 - 15.0 % 12/23/2024 10:54 PM EDT [facility] Platelets 247 140 - 400 10E3/uL 12/23/2024 10:54 PM EDT [facility] MPV 7.6 7.5 - 11.5 fL 12/23/2024 10:54 PM EDT [facility] Whole Blood 12/23/2024 10:2 8 PM EDT 12/23/2024 10:46 PM EDT us Amisha LEWIS LAB BLOOD ORDERABLES Final Resul t [facility] [address] * (ABNORMAL) Basic metabolic panel (12/23/2024 10:28 PM EDT) Sodium 140 133 - 146 mmol/L 12/23/2024 10:52 PM EDT [facility] Potassium 3.8 3.5 - 5.3 mmol/L 12/23/2024 10:52 PM EDT [facility] Chloride 110 98 - 110 mmol/L 12/23/2024 10:52 PM EDT [facility] CO2 24 21 - 33 mmol/L 12/23/2024 10:52 PM EDT [facility] Anion Gap 6 3 - 16 mmol/L 12/23/2024 10:52 PM EDT [facility] BUN 6(L) 7 - 25 mg/dL 12/23/2024 10:52 PM EDT [facility] Creatinine 0.88 0.60 - 1.30 mg/dL 12/23/2024 10:52 PM EDT [facility] Glucose 124(H) 70 - 100 mg/dL 12/23/2024 10:52 PM EDT [facility] Calcium 8.7 8.6 - 10.3 mg/dL 12/23/2024 10:52 PM EDT [facility] Osmolality, Calculated 289 278 - 305 mOsm/kg 12/23/2024 10:52 PM EDT [facility] EGFR 85 12/23/2024 10:52 PM EDT [facility] Comment:As of 2021, the estimated GFR is calculated [...] Kidney Disease. Am J Kidney Dis. 2020. Plasma 12/23/2024 10:2 8 PM EDT 12/23/2024 10:33 PM EDT us Amisha LEWIS LAB BLOOD ORDERABLES Final Resul t [facility] [address] [place], [place] [address] * X-ray Chest PA and Lateral (12/23/2024 10:24 PM EDT) Anatomical Region Laterality Modality Chest Radiographic Savanah ging 12/23/2024 10:1 8 PM EDT Impressions 12/23/2024 10:39 PM EDT IMPRESSION: No acute cardiopulmonary abnormality. Report Verified by: Mayo Valente MD at 12/23/2024 10:39 PM EDT Narrative 12/23/2024 10:39 PM EDT EXAM: XR CHEST PA AND LATERAL INDICATION: Other - Must Specify in Comments; edema TECHNIQUE: 2 views of the chest. COMPARISON: None. FINDINGS: Medical Devices: None. Heart and Mediastinum: Cardiomediastinal silhouette is within normal limits. Lungs and Pleura: Lungs are clear with no pleural effusions or evidence of pneumothorax. Bones and Soft tissues: No acute abnormalities. Procedure Note Max Valente MD - 12/23/2024 EXAM: XR CHEST PA AND LATERAL INDICATION: Other - Must Specify in Comments; edema TECHNIQUE: 2 views of the chest. COMPARISON: None. FINDINGS: Medical Devices: None. Heart and Mediastinum: Cardiomediastinal silhouette is within normallimits. Lungs and Pleura: Lungs are clear with no pleural effusions or evidence ofpneumothorax. Bones and Soft tissues: No acute abnormalities. IMPRESSION: No acute cardiopulmonary abnormality. Report Verified by: Mayo Valente MD at 12/23/2024 10:39 PM EDT Amisha LEWIS IMG DIAGNOSTIC IMAGING ORDERABLE S Final Result documented in this encounter Visit Diagnoses Not on filedocumented in this encounter Care Teams Voting Machine Repairer Relationship Specialty Start Date End Date Ryan Love MD [address] [place] [address] PCP - General Family Medicine 09/24/24 documented as of this encounter
--- OUTSIDE RECORDS SUMMARY | 2024-12-26 14:30 | XMS_ITS | Encounter Summary ---
Author Organization [facility] Address [address] [place] [address] Care Team Providers Care Process Improvement Engineer Name Role Phone Pcp, No Primary Care Provider Unavailabl e Bren Lira DMD Unavailable [phone] Eugene Holloway Unavailable Unavailabl e Reason for Visit * Consultation (Routine) - Closed Specialty Diagnoses / Procedures Referred By Octavio hicks Referred To Contact Oral Surgery Diagnoses Encounter for dental examination Garrison Rosenberg, DMD 800 [facility] [address] [place] [address] Phone: tel: fax: [facility] [address] [address] Phone: tel: fax: Referral ID Status Reason Start Date Expiration Date V isits Requested Visits Authorized [id number] Closed Specialty Services Required 09/05/2024 03/07/2026 1 1 Encounter Details Date Type Department Care Team (Late st Contact Info) Description 12/26/2024 2:30 PM EDT Evaluation [facility] [address] [phone] Akin Shay, DMD 800 [facility] [address] [place] [address] Oral mucosal lesion (Primary Dx) [...] that she had her teeth taken out [id number]. Denies nausea, vomiting, fever, or chills. Objective: [...] fissuratum removal local anesthesia. Michael Araujo DDS vfx artist Cosigned by Akin Shay DMD at 12/31/2024 [...] Care Team (Late st Contact Info) Description 01/15/2025 7:30 AM EDT Office Visit [facility] [address] [address] documented as of this encounter Visit Diagnoses Diagnosis Oral mucosal lesion- Primary documented in this encounter Care Teams Process Improvement Engineer Relationship Specialty Start Date End Date Pcp, No 800 [place] [address] PCP - General Family Medicine 09/05/24 Bren Lira, DMD [address] [address] Dentist 09/18/24 Eugene Holloway Dental Student Dental Triple Valve Tester 09/18/24 documented as of this encounter
--- OUTSIDE RECORDS SUMMARY | 2025-01-09 03:53 | XMS_ITS | Encounter Summary ---
Author Organization [facility] Address [address] [place] [address] Care Team Providers Care Face And Fill Packer Name Role Phone Ryan Love MD Primary Care Provider [phone] Source Comments This information has been disclosed [...] release of HIV test results or diagnoses. [id number] Reason for Visit * Reason Comments Abscess Encounter Details Date Type Department Care Team (Late st Contact Info) Description 01/09/2025 3:53 AM EDT - 01/09/2025 7:21 AM EDT Emergency [facility] Emergency Department [address] [place] [phone] Franki Pedroza MD [address] [facility]. [place] [address] Abscess (Primary Dx) Discharge Disposition: [...] encounter Discharge Instructions * Discharge Instructions* Richard Barrientos MD - 01/09/2025 6:38 AM EDT You [...] sent through Care Everywhere. * Skin Abscess Dbxm-iw-Xflm (Stateless) documented in this encounter Medications at Time [...] incision and drainage.. documented in this encounter Nursing Notes * [...] DEBBIE Chambers - 01/08/2025 11:50 PM EDT [facility] for Emergency Care MEDICAL SCREENING EXAM Date of Service: 01/09/2025 Reason for Visit: Abscess MSE Plan Patient evaluated from the [facility] for a medical screening exam. In [...] (from the past 4160 hours). Stable for [facility] while awaiting ED bed. See primary provider's [...] -- Heart Rate 01/08/25 2342 77 Resp 01/08/252 16 Temp 01/08/252341 98.3 ??F (36.8 ??C) Temp Source 01/08/25 2342 Oral SpO2 01/08/252341 98 % Weight -- Height -- Head [...] Asthma Bilateral leg numbness Bipolar 2 disorder ([facility]) COPD (chronic obstructive pulmonary disease) ([facility]) Degenerative disc disease, lumbar History of pancreatitis Peripheral neuropathy Pre-diabetes Prediabetes Surgical History: Past Surgical History: Procedure Laterality Date YOANDY-EN-Y PROCEDURE 2018 Medications: No current facility-administered medications for this [...] documented in this encounter Plan of Treatment Pending Results Name Type Priority Associated Diagnoses Date /Time Incision/Drainage Procedures Routine 7:42 AM EDT documented as of this encounter Procedures Procedure Name Priority Date/Time Associated Diagnosis Comments INCISION AND DRAINAGE Routine 01/09/2025 7:42 AM EDT POC GLU MONITORING DEVICE Routine 01/09/2025 12:34 AM EDT documented in this encounter Results * (ABNORMAL) POC Glucose Monitoring Device (01/09/2025 12:34 AM EDT) POC Glucose Monitoring Device 113(H) 70 - 100 mg/dL 01/09/2025 12:35 AM EDT [facility] Blood 01/09/2025 12:3 4 AM EDT 01/09/2025 12:35 AM EDT us Ryan Love MD POINT OF CARE TEST ORDERABLES F inal Result [facility] [address] [place] [address], [facility] documented in this encounter Visit Diagnoses Diagnosis [...] RN) documented in this encounter Care Teams Face And Fill Packer Relationship Specialty Start Date End Date Ryan Love MD [address] [place] [address] PCP - General Family Medicine 09/24/24 documented as of this encounter
--- OUTSIDE RECORDS SUMMARY | 2025-01-09 14:51 | XMS_ITS | Encounter Summary ---
Author Organization [facility] Address [address] [place] [address] Care Team Providers Care National Sales Associate Name Role Phone Pcp, No Primary Care Provider Unavailabl e Bren Lira DMD Unavailable Eugene Holloway Unavailable Unavailabl e Reason for Referral * Consultation (Routine) - Authorized Specialty Diagnoses / Procedures Referred By Octavio t Referred To Contact Neurosurgery Diagnoses Thoracic, thoracolumbar and lumbosacral intervertebral disc disorder Ryan Love MD [address] [place] [address] Phone: tel: fax: Referral ID Status Reason Start Date Expiration Date Visits Requested Visits Authorized [id number] Authorized Specialty Services Required 02/04/2024 08/05/2025 1 1 Encounter Details Date Type Department Care Team (Latest Contact Info) Description 02/04/2024 Community [facility] [address] [place] [address] Ryan Love MD [facility] [place] [address] Thoracic, thoracolumbar and lumbosacral intervertebral disc disorder [...] 01/15/2025 7:30 AM EDT Office Visit [facility] [address] [phone] Scheduled Referrals Name Type Priority Associated Diagnoses Orde r Schedule Ambulatory Referral to Neurosurgery Outpatient Referral Routine Thoracic, thoracolumbar and lumbosacral intervertebral disc disorder Expected: 02/04/2024 (Approximate), Expires: 08/06/2025 documented as of this encounter Visit Diagnoses Diagnosis Thoracic, thoracolumbar and lumbosacral intervertebral disc disorder- Primary documented in this encounter Care Teams National Sales Associate Relationship Specialty Start Date End Date Pcp, No [address] [place] [address] PCP - General Family Medicine 09/05/24 Bren Lira, DMD [address] [phone] Dentist 09/18/24 Eugene Holloway Dental Student Dental Field Support Rep 09/18/24 documented as of this encounter
--- OUTSIDE RECORDS SUMMARY | 2025-01-09 14:51 | XMS_ITS | Clinical Summary ---
Author Organization [facility] Address [address] [place] [address] Care Team Providers Care Fountain Worker Name Role Phone Pcp, No Primary Care Provider Unavailabl e Bren Lira DMD Unavailable [phone] Eugene Holloway Unavailable Unavailabl e Allergies No known active allergies Medications HYDROcodone-acetami nophen ([place]) 5-325 MG tabletIndications:P ain,Back pain Take 1 [...] Description 12/26/2024 2:30 PM EDT Evaluation [facility] [address] [phone] Akin Shay, DMD Oral mucosal lesion (Primary Dx) 12/26/2024 Travel 12/26/2024 Telephone [facility] [address] [phone] Dental, SurgeonMD 12/25/2024 Telephone [facility] [address] [phone] Dental, SurgeonMD 11/09/2024 Travel from [...] 01/15/2025 7:30 AM EDT Office Visit [facility] [address] [place] [phone] Health Maintenance Due Date Last Done Comments [...] of 3 - 19+ 3-dose series) 2002 AGO-VVMGL-38 Vaccine (3 - season) 2024 11/24/2020, 10/27/2020 [...] Most Recently Relevant to Health Maintenance Insurance [address] Care Teams Fountain Worker Relationship Specialty Start Date End Date Pcp, No [address] [place] [address] PCP - General Family Medicine 09/05/24 Bren Lira, DASHAWN [address] [phone] Dentist 09/18/24 Eugene Holloway Dental Student Dental Oracle Sql Developer 09/18/24
--- OUTSIDE RECORDS SUMMARY | 2025-01-09 14:52 | XMS_ITS | Clinical Summary ---
Author Organization [facility] Address [address] [place] [address] Care Team Providers Care Mainframe Software Developer Name Role Phone Ryan Love MD Primary Care Provider [phone] Source Comments This information has been disclosed [...] therelease of HIV test results or diagnoses. [id number] Health Allergies Active Allergy Reactions Criticality Noted Date Comments Moxifloxacin 09/15/2011 Medications cloNIDine HCL (CATAPRES) 0.1 MG tablet Take 1 tablet (0.1 mg total) by mouth 2 times a day as needed. Active aspirin 81 MG EC tablet Take 1 tablet (81 mg total) by mouth daily. Active metoprolol succinate (TOPROL-XL) 25 MG 24 hr tablet Take 0.5 tablets (12.5 mg total) by mouth daily. Active QUEtiapine (SEROQUEL) 50 MG tablet Take 1 tablet (50 mg total) by mouth at bedtime. Active diphenhydrAMINE (BENADRYL) 50 MG capsule Take 1 capsule (50 mg total) by mouth every 6 hours as needed for Itching. Active budesonide/formo terol fumarate (SYMBICORT INHL) Inhale 1 puff into the lungs 2 times a day. Active azelastine (ASTELIN) 137 mcg (0.1 %) nasal spray Use 1 spray into each nostril 2 times a day. Use in each nostril as directed Active cetirizine (ZYRTEC) 10 MG tablet Take 1 tablet (10 mg total) by mouth daily. Active dextromethorphan -guaifenesin (MUCINEX DM) 30-600 mg per 12 hr tablet Take 1 tablet by mouth every 12 hours as needed. Active vortioxetine (TRINTELLIX) 10 mg Tab Take 1 tablet (10 mg total) by mouth daily. Active albuterol (VENTOLIN HFA) 90 mcg/actuation Inhl inhaler Inhale 2 puffs into the lungs every 6 hours as needed for Shortness of Breath. 021 Active lithium (ESKALITH) 450 MG ER tablet Take 1 tablet (450 mg total) by mouth 2 times a day. Active baclofen (LIORESAL) 10 MG tablet Take 1 tablet (10 mg total) by mouth 2 times a day. Active HYDROcodone-acet aminophen (NORCO) 5-325 mg per tablet Take 5 mg of hydrocodone by mouth 3 times a day. Active sulfamethoxazole -trimethoprim (BACTRIM DS) 800-160 mg per tabletIndication s:Abscess Take 1 tablet by mouth 2 times a day for 7 days. 14 tablet 025 2024 Active cephALEXin (KEFLEX) 500 MG capsuleIndicatio ns:Abscess Take 1 capsule (500 mg total) by mouth 4 times daily before meals and at bedtime for 7 days. 28 capsule 025 2024 Active cyclobenzaprine (FLEXERIL) 10 MG tablet Take 1 tablet (10 mg total) by mouth 3 times a day as needed for Muscle spasms. 2024 Discontinued( Therapy Completed / No Longer Needed) oxyCODONE-acetam inophen (PERCOCET) 10-325 mg per tablet Take 1 tablet by mouth in the morning and at bedtime. 2024 Discontinued( Therapy Completed / No Longer Needed) OXcarbazepine (TRILEPTAL) 300 MG tablet Take 1 tablet (300 mg total) by mouth 2 times a day. 2024 Discontinued( Therapy Completed / No Longer Needed) levonorgestreL (MIRENA) 20 mcg/24 hours (7 yrs) 52 mg IUD 1 Intra Uterine Device by Intrauterine route continuous. 2024 Discontinued( Therapy Completed / No Longer Needed) norgestimate-eth inyl estradioL (ORTHO-CYCLEN) 0.25-35 mg-mcg per tablet Take 1 tablet by mouth daily. 2024 Discontinued( Therapy Completed / No Longer Needed) ALBUTEROL INHL Inhale into the lungs. 2 Puffs Daily PRN 2024 Discontinued( Formulary change / Therapeutic Interchange) fluticasone propionate (FLONASE) 50 mcg/actuation nasal spray Use 1 spray into each nostril daily. 2024 Discontinued( Therapy Completed / No Longer Needed) calcium citrate-vitamin D (CITRACAL+D) 315 mg-5 mcg (200 unit) Take 1 tablet by mouth daily. 2024 Discontinued( Therapy Completed / No Longer Needed) naloxone (NARCAN) 4 mg/actuation SpryIndications: Lumbar radiculopathy Apply 1 spray in one nostril if needed. Call 911. May repeat dose in other nostril if no response in 3 minutes. 2 each 1 022 2024 Discontinued( Therapy Completed / No Longer Needed) clonazePAM (KLONOPIN) 0.5 MG tablet Take 1 tablet (0.5 mg total) by mouth 2 times a day as needed for Anxiety. 2024 Discontinued( Therapy Completed / No Longer Needed) metaxalone (SKELAXIN) 800 MG tablet Take 1 tablet (800 mg total) by mouth 3 times a day. 2024 Discontinued( Therapy Completed / No Longer Needed) oxyCODONE (OXY-IR) 5 mg capsule Take 1 capsule (5 mg total) by mouth every 6 hours as needed for Pain. 2024 Discontinued( Therapy Completed / No Longer Needed) methylPREDNISolo ne (MEDROL, ISMAEL,) 4 mg tablet Take as instructed in package 21 tablet 2024 Discontinued( Therapy Completed / No Longer Needed) lidocaine (LIDODERM) 5 % Place 1 patch onto the skin daily. Apply patch for 12 hours and then remove patch and leave off for 12 hours. 30 patch 2024 Discontinued( Therapy Completed / No Longer Needed) naloxone (NARCAN) 4 mg/actuation Welch Insert into either nostril then completely depress plunger to give dose of naloxone. Use as needed for opiate/narcotic overdose that leads to decreased breathing or no breathing 2 each 022 2024 Discontinued( Therapy Completed / No Longer Needed) gabapentin (NEURONTIN) 300 MG capsuleIndicatio ns:Lumbar radiculopathy TAKE 1 CAPSULE (300 MG TOTAL) BY MOUTH 3 TIMES A DAY. 90 capsule 022 2024 Discontinued( Therapy Completed / No Longer Needed) Active Problems Problem Noted Date Diagnosed Date [...] Encounters Date Type Department Care Team Description 01/09/2025 3:53 AM EDT - 01/09/2025 7:21 AM EDT Emergency [facility] Emergency Department [address] [place] [phone] Franki Pedroza MD Abscess (Primary Dx) Discharge Disposition: Home or Self Care WITHOUT Home Care Services 01/08/2025 Travel 12/23/2024 9:46 PM EDT - 12/24/2024 12:31 AM EDT Emergency [facility] Emergency Department [address] [place] [phone] Discharge Disposition: ED Dismiss - Left Before Treatment 12/23/2024 Travel 12/20/2024 Travel 12/19/2024 11:59 PM EDT - 12/20/2024 2:59 AM EDT Emergency [facility] Emergency Department [address] [place] [phone] Discharge Disposition: ED Dismiss - Left Before Treatment 10/24/2024 9:16 PM EDT - 10/24/2024 11:40 PM EDT Emergency [facility] Emergency Department [address] [place] [address] Doris Miller MD Chronic bilateral low back pain with bilateral sciatica (Primary Dx) Discharge Disposition: Home or Self Care WITHOUT Home Care Services 10/24/2024 Travel 10/18/2024 8:59 PM EDT - 10/18/2024 11:12 PM EDT Emergency [facility] Emergency Department [address] [facility] [place] [address] Raghu Chiu MD Lumbar back pain (Primary [...] 100% 01/09/2025 6 :44 AM EDT Weight 121.6 kg (268 lb) 09/05/2022 [...] series) 2002 Cervical Cancer Screening/Pa p Smear ([facility]) 2013 Tobacco Cessation Readiness 08/02/2022 08/02/2021 Mammogram ([facility]) 2023 Immunization: COVID-19 ( season) 2024 11/24/2020, 10/27/2020 Immunization: Pneumococcal Completed 08/21/2023 Immunization: Influenza ([facility]) Completed 03/13/2024, 04/28/2023, 05/09/2021 Hepatitis C Screening ([facility]) Completed Procedures Procedure Name Priority Date/Time Associated Diagnosis Comments INCISION AND DRAINAGE Routine 01/09/2025 7:42 AM EDT POC GLU MONITORING DEVICE Routine 01/09/2025 12:34 AM EDT URINALYSIS, MICROSCOPIC STAT 12/23/2024 10:28 PM [...] EDT from Last 3 Months Results * (ABNORMAL) POC Glucose Monitoring Device (01/09/2025 12:34 AM EDT) POC Glucose Monitoring Device 113(H) 70 - 100 mg/dL 01/09/2025 12:35 AM EDT [facility] Blood 01/09/2025 12:3 4 AM EDT 01/09/2025 12:35 AM EDT us Ryan Love MD POINT OF CARE TEST ORDERABLES F inal Result [facility] [address] [place] [address], [facility] * HCG Urine, Qualitative (12/23/2024 10:28 PM EDT) [facility] hCG Qualitative -Clinitek Negative Negative 12/23/2024 10:42 PM EDT [facility] Urine 12/23/2024 10:2 8 PM EDT 12/23/2024 10:33 PM EDT Amisha LEWIS URINE ORDERABLES Final Result [facility] [address] * High Sensitivity Troponin (12/23/2024 10:28 PM EDT) Only the most recent of2 resultswithin the time period is included. [facility] High Sensitivity Troponin 3 0 - 14 ng/L 12/23/2024 10:58 PM EDT [facility] Serum 12/23/2024 10:2 8 PM EDT 12/23/2024 10:33 PM EDT us Amisha LEWIS LAB BLOOD ORDERABLES Final Resul t [facility] [address] * (ABNORMAL) Urinalysis, Microscopic (12/23/2024 10:28 PM EDT) [facility] RBC, UA 3 0 - 3 /HPF 12/23/2024 10:59 PM EDT [facility] WBC, UA >100(H) 0 - 5 /HPF 12/23/2024 10:59 PM EDT [facility] WBC Clumps, UA Moderate(A ) None Seen /HPF 12/23/2024 10:59 PM EDT [facility] Squam Epithel, UA 1 0 - 5 /HPF 12/23/2024 10:59 PM EDT [facility] Trans Epithel, UA 2 0 - 5 /HPF 12/23/2024 10:59 PM EDT [facility] Bacteria, UA Moderate(A ) None Seen /HPF 12/23/2024 10:59 PM EDT [facility] Hyaline Casts, UA 1 0 - 2 /LPF 12/23/2024 10:59 PM EDT [facility] Urine 12/23/2024 10:2 8 PM EDT 12/23/2024 10:35 PM EDT us Amisha LEWIS URINE ORDERABLES Final Result [facility] [address] [place] [address], [facility] * (ABNORMAL) Urinalysis-Macroscopic w/Rfx to Microsco (12/23/2024 10:28 PM EDT) Color, UA Yellow Yellow,Straw 12/23/2024 10:59 PM EDT [facility] Clarity, UA Cloudy(A) Clear 12/23/2024 10:59 PM EDT [facility] Specific [place], UA 1.015 1.005 - 1.035 12/23/2024 10:59 PM EDT [facility] pH, UA 6.0 5.0 - 8.0 12/23/2024 10:59 PM EDT [facility] Protein, UA Negative Negative mg/dL 12/23/2024 10:59 PM EDT [facility] Glucose, UA Negative Negative mg/dL 12/23/2024 10:59 PM EDT [facility] Ketones, UA Negative Negative mg/dL 12/23/2024 10:59 PM EDT [facility] Bilirubin, UA Negative Negative 12/23/2024 10:59 PM EDT [facility] Blood, UA Trace-intact (A) Negative 12/23/2024 10:59 PM EDT [facility] Nitrite, UA Positive(A) Negative 12/23/2024 10:59 PM EDT [facility] Urobilinogen, UA 0.2 E.U./dL 0.2 - 1.0 EU/dL 12/23/2024 10:59 PM EDT [facility] Leukocyte Esterase, UA Moderate(A) Negative 12/23/2024 10:59 PM EDT [facility] Urine 12/23/2024 10:2 8 PM EDT 12/23/2024 10:33 PM EDT Amisha LEWIS URINE ORDERABLES Final Result Performing Organization Address [facility] Co de Phone Number [facility] [address] [facility]. [address] * Hepatic Function Panel (12/23/2024 10:28 PM EDT) Only the most recent of2 resultswithin the time period is included. Total Bilirubin 0.5 0.0 - 1.5 mg/dL 12/23/2024 10:52 PM EDT [facility] Bilirubin, Direct 0.3 0.0 - 0.4 mg/dL 12/23/2024 10:52 PM EDT [facility] AST 18 13 - 39 U/L 12/23/2024 10:52 PM EDT [facility] ALT 17 7 - 52 U/L 12/23/2024 10:52 PM EDT [facility] Alkaline Phosphatase 47 36 - 125 U/L 12/23/2024 10:52 PM EDT [facility] Total Protein 6.9 6.4 - 8.9 g/dL 12/23/2024 10:52 PM EDT [facility] Albumin 4.0 3.5 - 5.7 g/dL 12/23/2024 10:52 PM EDT [facility] Bilirubin, Indirect 0.2 0.0 - 1.1 mg/dL 12/23/2024 10:52 PM EDT [facility] Plasma 12/23/2024 10:2 8 PM EDT 12/23/2024 10:33 PM EDT Amisha LEWIS LAB BLOOD ORDERABLES Final Resul t [facility] [address] [facility]. [address] * Differential (12/23/2024 10:28 PM EDT) Only the most recent of2 resultswithin the time period is included. Neutrophils Relative 54.5 40.0 - 80.0 % 12/23/2024 10:54 PM EDT [facility] Lymphocytes Relative 31.9 15.0 - 45.0 % 12/23/2024 10:54 PM EDT [facility] Monocytes Relative 7.9 0.0 - 12.0 % 12/23/2024 10:54 PM EDT [facility] Eosinophils Relative 4.8 0.0 - 8.0 % 12/23/2024 10:54 PM EDT [facility] Basophils Relative 0.9 0.0 - 1.0 % 12/23/2024 10:54 PM EDT [facility] nRBC 0 0 - 0 /100 WBC 12/23/2024 10:54 PM EDT [facility] Neutrophils Absolute 4,197 1,520 - 8,640 /uL 12/23/2024 10:54 PM EDT [facility] Lymphocytes Absolute 2,456 570 - 4,860 /uL 12/23/2024 10:54 PM EDT [facility] Monocytes Absolute 608 0 - 1,296 /uL 12/23/2024 10:54 PM EDT [facility] Eosinophils Absolute 370 0 - 864 /uL 12/23/2024 10:54 PM EDT [facility] Basophils Absolute 69 0 - 108 /uL 12/23/2024 10:54 PM EDT [facility] Whole Blood 12/23/2024 10:2 8 PM EDT 12/23/2024 10:46 PM EDT us Amisha LEWIS LAB BLOOD ORDERABLES Final Resul t Performing Organization Address City/State/[facility] Co de Phone Number [facility] [address] * (ABNORMAL) CBC (12/23/2024 10:28 PM EDT) Only the most recent of2 resultswithin the time period is included. WBC 7.7 3.8 - 10.8 10E3/uL 12/23/2024 10:54 PM EDT [facility] RBC 3.81 3.80 - 5.10 10E6/uL 12/23/2024 10:54 PM EDT [facility] Hemoglobin 12.6 11.7 - 15.5 g/dL 12/23/2024 10:54 PM EDT [facility] Hematocrit 37.3 35.0 - 45.0 % 12/23/2024 10:54 PM EDT [facility] MCV 98.1 80.0 - 100.0 fL 12/23/2024 10:54 PM EDT [facility] MCH 33.1(H) 27.0 - 33.0 pg 12/23/2024 10:54 PM EDT [facility] MCHC 33.8 32.0 - 36.0 g/dL 12/23/2024 10:54 PM EDT [facility] RDW 13.3 11.0 - 15.0 % 12/23/2024 10:54 PM EDT [facility] Platelets 247 140 - 400 10E3/uL 12/23/2024 10:54 PM EDT [facility] MPV 7.6 7.5 - 11.5 fL 12/23/2024 10:54 PM EDT [facility] Whole Blood 12/23/2024 10:2 8 PM EDT 12/23/2024 10:46 PM EDT us Amisha LEWIS LAB BLOOD ORDERABLES Final Resul t [facility] [address] [place] [address], [facility] * (ABNORMAL) Basic metabolic panel (12/23/2024 10:28 PM EDT) Only the most recent of2 resultswithin the time period is included. Sodium 140 133 - 146 mmol/L 12/23/2024 10:52 PM EDT [facility] Potassium 3.8 3.5 - 5.3 mmol/L 12/23/2024 10:52 PM EDT [facility] Chloride 110 98 - 110 mmol/L 12/23/2024 10:52 PM EDT [facility] CO2 24 21 - 33 mmol/L 12/23/2024 10:52 PM EDT [facility] Anion Gap 6 3 - 16 mmol/L 12/23/2024 10:52 PM EDT [facility] BUN 6(L) 7 - 25 mg/dL 12/23/2024 10:52 PM EDT [facility] Creatinine 0.88 0.60 - 1.30 mg/dL 12/23/2024 10:52 PM EDT [facility] Glucose 124(H) 70 - 100 mg/dL 12/23/2024 10:52 PM EDT [facility] Calcium 8.7 8.6 - 10.3 mg/dL 12/23/2024 10:52 PM EDT [facility] Osmolality, Calculated 289 278 - 305 mOsm/kg 12/23/2024 10:52 PM EDT [facility] EGFR 85 12/23/2024 10:52 PM EDT [facility] Comment:As of 2021, the estimated [...] Sheryl M, Dontrell DC, Hudson ND, Phill ELENA, Cony CHAO, et al. A Unifying Approach for GFR Estimation: Recommendations of the NKF-ASN Task Force on Reassessing the inclusion of Race in Diagnosing Kidney Disease. Am J Kidney Dis. 2020. Plasma 12/23/2024 10:2 8 PM EDT 12/23/2024 10:33 PM EDT us Amisha LEWIS LAB BLOOD ORDERABLES Final Resul t [facility] [address] * X-ray Chest PA and Lateral [...] Ab Nonreactive Nonreactive 12/20/2024 2:07 AM EDT [facility] Comment:Health Department no tified in accordance with reportable infectious disease guidelines. HCVAB Number 0.05 0.00 - 0.79 S/CO 12/20/2024 2:07 AM EDT [facility] Serum 12/20/2024 12:5 6 AM EDT 12/20/2024 1:08 AM EDT Kathryn LEWIS LAB BLOOD ORDERABLES Final Resul t [facility] [address] [place] [address], [facility] * BNP (12/20/2024 12:56 AM EDT) BNP 20 0 - 100 pg/mL 12/20/2024 2:10 AM EDT [facility] Comment: BNP may be increased in [...] LEWIS LAB BLOOD ORDERABLES Final Resul t [facility] [address] [place] [address], [facility] * ECG for indication of syncope (12/20/2024 12:50 AM EDT) 12/20/2024 12:5 0 AM EDT Narrative MUSE - 12/20/2024 8:16 AM EDT Ventricular Rate: 67 BPM Atrial Rate: 67 BPM P-R Interval: 154 ms QRS Duration: 88 ms QT: 394 ms QTc: 416 ms P [place]: 11 degrees R [place]: -4 degrees T [place]: -5 degrees Diagnosis Line: ^ INTERPRETATION NOT AVAILABLE--ECG READ IN ER ^ Confirmed by PHYSICIAN, ER ([id number]), editor trade journal [place] ([id number]) on 12/20/2024 8:16:14 AM Kathryn LEWIS ECG ORDERABLES Final Result BRADY from Last 3 Months Insurance [employer] [facility] Care Teams Mainframe Software Developer Relationship Specialty [place] [address] [place] [address] [place] [address] PCP - General Family Medicine 09/24/24
--- OUTSIDE RECORDS SUMMARY | 2025-01-09 14:52 | XMS_ITS | Clinical Summary ---
Author Organization [facility] Address [address] [place] [address] Phone Care Team Providers Care Product Controller Name Role Phone Ryan Love MD Primary Care Provider [phone] Allergies Active Allergy Reactions Criticality Noted Date [...] patient's age to complete this topic Insurance [facility] MDR [facility] MDR [facility] MDR Advance Directives For more information, please contact: [phone] * Full Code (Latest Code Status on File) Date Activated Date Inactivated Comments 08/14/2021 11:15 PM 08/17/2021 5:25 PM Care Teams Product Controller Relationship Specialty Start Date End Date Ryan Love MD PCP - General Family Medicine 08/14/21
--- OUTSIDE RECORDS SUMMARY | 2025-01-09 14:52 | XMS_ITS | Encounter Summary ---
Author Organization Healthcare Address [address] [place] [address] Care Team Providers Care Graphics Manager Name Role Phone Pcp, No Primary Care Provider Unavailabl e Bren Lira DMD Unavailable [phone] Eugene Holloway Unavailable Unavailabl e Encounter [...] 01/15/2025 7:30 AM EDT Office Visit [facility] [address] [address] documented as of this encounter Visit Diagnoses Not on filedocumented in this encounter Care Teams Graphics Manager Relationship Specialty Start Date End Date Pcp, No [address] [place] [address] PCP - General Family Medicine 09/05/24 Bren Lira DMD [address] [address] Dentist 09/18/24 Eugene Holloway Dental Student Dental Plan Rep 09/18/24 documented as of this encounter
--- OUTSIDE RECORDS SUMMARY | 2025-01-09 14:52 | XMS_ITS | Encounter Summary ---
Author Organization [facility] Address [address] [place] [address] Care Team Providers Care Senior Web Developer Name Role Phone Ryan Love MD Primary Care Provider [phone] Source Comments This information has been disclosed [...] release of HIV test results or diagnoses. [id number] Health Encounter Details Date Type Department Care [...] filedocumented in this encounter Care Teams Senior Web Developer Relationship Specialty Start Date End Date Ryan Love MD [address] [place] [address] [place] [address] PCP - General Family Medicine 09/24/24 documented as of this encounter
--- OUTSIDE RECORDS SUMMARY | 2025-01-09 14:52 | XMS_ITS | Encounter Summary ---
Author Organization [facility] Address [address] [place] [address] Care Team Providers Care Data Coder Operator Name Role Phone Ryan Love MD Primary Care Provider [phone] Source Comments This information has been disclosed [...] release of HIV test results or diagnoses. [id number] Health Encounter Details Date Type Department Care [...] on filedocumented in this encounter Care Teams Data Coder Operator Relationship Specialty Start Date End Date Ryan Love MD [address] [place] [address] [place] [address] PCP - General Family Medicine 09/24/24 documented as of this encounter
--- OUTSIDE RECORDS SUMMARY | 2025-01-09 14:52 | XMS_ITS | Encounter Summary ---
Author Organization [facility] Address [address] [place] [address] Care Team Providers Care Produce Inspector Name Role Phone Ryan Love MD Primary Care Provider [phone] Source Comments This information has been disclosed [...] release of HIV test results or diagnoses. [id number] Health Encounter Details Date Type Department Care Team (Latest Contact Info) Description 01/08/2025 Travel Social History Tobacco Use Types Packs/Day [...] on filedocumented in this encounter Care Teams Produce Inspector Relationship Specialty Start Date End Date Ryan Love MD [address] [place] [address] [place] [address] PCP - General Family Medicine 09/24/24 documented as of this encounter
--- OUTSIDE RECORDS SUMMARY | 2025-01-09 14:52 | XMS_ITS | Encounter Summary ---
Author Organization Healthcare Address [address] [place] [address] Care Team Providers Care Cashier Receptionist Name Role Phone Pcp, No Primary Care Provider Unavailabl e Bren Lira DMD Unavailable Eugene Holloway Unavailable Unavailabl e Encounter Details Date Type Department Care Team (Late Contact Info) Description 12/25/2024 Telephone [facility] [address] [address] Dental, Surgeon, [address] [place] [address] Social History Tobacco Use Types Packs/Day Years [...] 01/15/2025 7:30 AM EDT Office Visit [facility] [address] [phone] documented as of this encounter Visit Diagnoses Not on filedocumented in this encounter Care Teams Cashier Receptionist Relationship Specialty Start Date End Date Pcp, No [address] [place] [address] PCP - General Family Medicine 09/05/24 Bren Lira, DASHAWN [address] [address] Dentist 09/18/24 Eugene Holloway Dental Student Dental Academic Services Coordinator 09/18/24 documented as of this encounter
--- OUTSIDE RECORDS SUMMARY | 2025-01-09 14:52 | XMS_ITS | Encounter Summary ---
Author Organization Healthcare Address [address] [place] [address] Care Team Providers Care Cd Manufacturing Supervisor Name Role Phone Pcp, No Primary Care Provider Unavailabl e Bren Lira DMD Unavailable Eugene Holloway Unavailable Unavailabl e Encounter Details Date Type Department Care Team (Late st Contact Info) Description 12/26/2024 Telephone [facility] [address] [phone] Dental, Surgeon, [address] [place], [place] [id number] Social History Tobacco Use Types Packs/Day Years [...] 01/15/2025 7:30 AM EDT Office Visit [facility] [address] [phone] documented as of this encounter Visit Diagnoses Not on filedocumented in this encounter Care Teams Cd Manufacturing Supervisor Relationship Specialty Start Date End Date Pcp, No [address] [place] [address] PCP - General Family Medicine 09/05/24 Bren Lira, DMD [address] [phone] Dentist 09/18/24 Eugene Holloway Dental Student Dental Gate Shear Operator 09/18/24 documented as of this encounter
--- NOTE | 2025-01-09 15:35 | PC.NURSE ---
PFT and 6 Minute Walk test completed without incident. Albuterol 0.083% given via HHN, per written protocol, Pt tolerated tx well.
[2025-01-09] MEDS: ALBUTEROL 0.083% 2.5 MG/3 ML NEB IH (16:26)
== END 2025-01-09 23:59 | disposition home or self-care (01) ==
LOC: RT 14:48
PROVIDERS: PCP Family Medicine; Visit Provider Internal Medicine Pulmonary Disease
DX: J45.909 Unspecified asthma, uncomplicated (principal); R94.2 Abnormal results of pulmonary function studies
CPT/HCPCS: 94060; 94618; 94726; 94729

== ENCOUNTER 2025-02-16 15:27 | Outpatient (CLI) | payer OTHER, SELFPAY ==
--- OUTSIDE RECORDS SUMMARY | 2024-12-19 23:59 | XMS_ITS | Encounter Summary ---
Author Organization [facility] Address [address] [place] [address] Care Team Providers Care Hair Rooting Machine Operator Name Role Phone Ryan Love MD Primary Care Provider [phone] Source Comments This information has been disclosed [...] release of HIV test results or diagnoses. [id number] Reason for Visit * Reason Comments Ankle Swelling Encounter Details Date Type Department Care Team (Late st Contact Info) Description 12/19/2024 11:59 PM EDT - 12/20/2024 2:59 AM EDT Emergency [facility] Emergency Department [address] [place] [id number] Discharge Disposition: ED Dismiss - Left [...] 08/02/2021 01/10/20 25 naloxone (NARCAN) 4 mg/actuation [place] Insert into either nostril then completely depress [...] 12/20/2024 12:01 AM EDT Pt presents to [facility] with complaints of swelling of the ankles [...] a room. PIV removed. Pt ambulate from [facility] in stable condition. documented in this encounter Miscellaneous Notes * ED Medical Screening Exam - DEBBIE Mcneil - 12/20/2024 12:28 AM EDT [facility] for Emergency Care Provider Note MEDICAL SCREENING EXAM Date of Service: 12/20/2024 Reason for Visit: Ankle Swelling MSE Plan The patient was briefly evaluated from the [facility] for a medical screening exam. In short, [...] The patient will be held in the [facility] untila treatment space is made available. Brief [...] Disp: , Rfl: naloxone (NARCAN) 4 mg/actuation [place], Apply 1 spray in one nostril if needed. Call 911. May repeatdose in other nostril if no response in 3 minutes., Disp: 2 each, Rfl: 1 naloxone (NARCAN) 4 mg/actuation [place], Insert into either nostril then completely depress [...] Sensitivity Troponin (12/20/2024 12:57 AM EDT) Pathologist [facility] Emergency Department High Sensitivity Troponin 3 0 - 14 ng/L 12/20/2024 1:30 AM EDT [facility] Serum 12/20/2024 12:5 7 AM EDT 12/20/2024 1:04 AM EDT Kathryn LEWIS LAB BLOOD ORDERABLES Final Resul t [facility] [address] * Hepatic Function Panel (12/20/2024 12:56 AM EDT) Pathologist [facility] Emergency Department Total Bilirubin 0.6 0.0 - 1.5 mg/dL 12/20/2024 1:22 AM EDT [facility] Bilirubin, Direct 0.1 0.0 - 0.4 mg/dL 12/20/2024 1:22 AM EDT [facility] AST 19 13 - 39 U/L 12/20/2024 1:22 AM EDT [facility] ALT 24 7 - 52 U/L 12/20/2024 1:22 AM EDT [facility] Alkaline Phosphatase 52 36 - 125 U/L 12/20/2024 1:22 AM EDT [facility] Total Protein 6.5 6.4 - 8.9 g/dL 12/20/2024 1:22 AM EDT [facility] Albumin 3.7 3.5 - 5.7 g/dL 12/20/2024 1:22 AM EDT [facility] Bilirubin, Indirect 0.5 0.0 - 1.1 mg/dL 12/20/2024 1:22 AM EDT [facility] Plasma 12/20/2024 12:5 6 AM EDT 12/20/2024 1:04 AM EDT Kathryn LEWIS LAB BLOOD ORDERABLES Final Resul t [facility] [address] * BNP (12/20/2024 12:56 AM EDT) BNP 20 0 - 100 pg/mL 12/20/2024 2:10 AM EDT [facility] Comment: BNP may be increased in the presence of sacubitril/valsartan (Entresto). Please interpret accordingly. Plasma 12/20/2024 12:5 6 AM EDT 12/20/2024 1:10 AM EDT Narrative [facility] - 12/20/2024 2:10 AM EDT The presence of high concentrations of biotin may cause falsely lowered BNP results. Biotin interference may be seen if an individual is taking >5 mg biotin per day. Interpret BNP results in the context of the patient's clinical presentation. Kathryn LEWIS LAB BLOOD ORDERABLES Final Resul t [facility] [address] * (ABNORMAL) Differential (12/20/2024 12:56 AM EDT) Pathologist [facility] Emergency Department Neutrophils Relative 55.1 40.0 - 80.0 % 12/20/2024 1:29 AM EDT [facility] Lymphocytes Relative 30.9 15.0 - 45.0 % 12/20/2024 1:29 AM EDT [facility] Monocytes Relative 7.3 0.0 - 12.0 % 12/20/2024 1:29 AM EDT [facility] Eosinophils Relative 4.7 0.0 - 8.0 % 12/20/2024 1:29 AM EDT [facility] Basophils Relative 2.0(H) 0.0 - 1.0 % 12/20/2024 1:29 AM EDT [facility] nRBC 0 0 - 0 /100 WBC 12/20/2024 1:29 AM EDT [facility] Neutrophils Absolute 4,739 1,520 - 8,640 /uL 12/20/2024 1:29 AM EDT [facility] Lymphocytes Absolute 2,657 570 - 4,860 /uL 12/20/2024 1:29 AM EDT [facility] Monocytes Absolute 628 0 - 1,296 /uL 12/20/2024 1:29 AM EDT [facility] Eosinophils Absolute 404 0 - 864 /uL 12/20/2024 1:29 AM EDT [facility] Basophils Absolute 172(H) 0 - 108 /uL 12/20/2024 1:29 AM EDT [facility] Whole Blood 12/20/2024 12:5 6 AM EDT 12/20/2024 1:10 AM EDT us Kathryn LEWIS LAB BLOOD ORDERABLES Final Resul t [facility] [address] [place] [address], [facility] * (ABNORMAL) CBC (12/20/2024 12:56 AM EDT) WBC 8.6 3.8 - 10.8 10E3/uL 12/20/2024 1:29 AM EDT [facility] RBC 3.75(L) 3.80 - 5.10 10E6/uL 12/20/2024 1:29 AM EDT [facility] Hemoglobin 12.6 11.7 - 15.5 g/dL 12/20/2024 1:29 AM EDT [facility] Hematocrit 36.3 35.0 - 45.0 % 12/20/2024 1:29 AM EDT [facility] MCV 96.8 80.0 - 100.0 fL 12/20/2024 1:29 AM EDT [facility] MCH 33.7(H) 27.0 - 33.0 pg 12/20/2024 1:29 AM EDT [facility] MCHC 34.8 32.0 - 36.0 g/dL 12/20/2024 1:29 AM EDT [facility] RDW 13.4 11.0 - 15.0 % 12/20/2024 1:29 AM EDT [facility] Platelets 244 140 - 400 10E3/uL 12/20/2024 1:29 AM EDT [facility] MPV 7.6 7.5 - 11.5 fL 12/20/2024 1:29 AM EDT [facility] Whole Blood 12/20/2024 12:5 6 AM EDT 12/20/2024 1:10 AM EDT Kathryn LEWIS LAB BLOOD ORDERABLES Final Resul t [facility] [address] [facility]. [address] * ED HCV Ab Reflex To HCV Quant (12/20/2024 12:56 AM EDT) HCV Ab Nonreactive Nonreactive 12/20/2024 2:07 AM EDT [facility] Comment:Health Department no tified in accordance with reportable infectious disease guidelines. HCVAB Number 0.05 0.00 - 0.79 S/CO 12/20/2024 2:07 AM EDT [facility] Serum 12/20/2024 12:5 6 AM EDT 12/20/2024 1:08 AM EDT Kathryn LEWSI LAB BLOOD ORDERABLES Final Resul t Performing Organization Address [facility] Co de Phone Number [facility] [address] [facility]. [address] * (ABNORMAL) Basic metabolic panel (12/20/2024 12:56 AM EDT) Sodium 138 133 - 146 mmol/L 12/20/2024 1:22 AM EDT [facility] Potassium 3.7 3.5 - 5.3 mmol/L 12/20/2024 1:22 AM EDT [facility] Chloride 107 98 - 110 mmol/L 12/20/2024 1:22 AM EDT [facility] CO2 25 21 - 33 mmol/L 12/20/2024 1:22 AM EDT [facility] Anion Gap 6 3 - 16 mmol/L 12/20/2024 1:22 AM EDT [facility] BUN 9 7 - 25 mg/dL 12/20/2024 1:22 AM EDT [facility] Creatinine 0.75 0.60 - 1.30 mg/dL 12/20/2024 1:22 AM EDT [facility] Glucose 107(H) 70 - 100 mg/dL 12/20/2024 1:22 AM EDT [facility] Calcium 8.6 8.6 - 10.3 mg/dL 12/20/2024 1:22 AM EDT [facility] Osmolality, Calculated 285 278 - 305 mOsm/kg 12/20/2024 1:22 AM EDT [facility] EGFR >90 12/20/2024 1:22 AM EDT [facility] Comment: As of 2021, the estimated [...] BLOOD ORDERABLES Final Resul t [facility] [address] [place] [address], [facility] * ECG for indication of syncope (12/20/2024 12:50 AM EDT) 12/20/2024 12:5 0 AM EDT Narrative MUSE - 12/20/2024 8:16 AM EDT Ventricular Rate: 67 BPM Atrial Rate: 67 BPM P-R Interval: 154 ms QRS Duration: 88 ms QT: 394 ms QTc: 416 ms P [place]: 11 degrees R [place]: -4 degrees T [place]: -5 degrees Diagnosis Line: ^ INTERPRETATION NOT AVAILABLE--ECG READ IN ER ^ Confirmed by PHYSICIAN, ER ([id number]), assistant production editor Le Simon ([id number]) on 12/20/2024 8:16:14 AM Kathryn LEWIS ECG ORDERABLES Final Result MUSE documented in this encounter Visit Diagnoses Not on filedocumented in this encounter Care Teams Hair Rooting Machine Operator Relationship Specialty Start Date End Date Ryan Love MD [address] [place] [address] PCP - General Family Medicine 09/24/24 documented as of this encounter
--- OUTSIDE RECORDS SUMMARY | 2024-12-26 14:30 | XMS_ITS | Encounter Summary ---
Author Organization [facility] Address [address] [place] [address] Care Team Providers Care Paper Grader Name Role Phone Pcp, No Primary Care Provider Unavailabl e Bren Lira DMD Unavailable [phone] Eugene Holloway Unavailable Unavailabl e Reason for Visit * Consultation (Routine) - Closed Specialty Diagnoses / Procedures Referred By Octavio hicks Referred To Contact Oral Surgery Diagnoses Encounter for dental examination Garrison Rosenberg, DMD 800 [facility] [address] [place] [address] Phone: tel: fax: [facility] [address] [address] Phone: tel: fax: Referral ID Status Reason Start Date Expiration Date V isits Requested Visits Authorized [id number] Closed Specialty Services Required 09/05/2024 03/07/2026 1 1 Encounter Details Date Type Department Care Team (Late st Contact Info) Description 12/26/2024 2:30 PM EDT Evaluation [facility] [address] [phone] Akin Shay, DMD 800 [facility] [address] [place] [address] Oral mucosal lesion (Primary Dx) [...] were not included. OMS Evaluation Appointment Subjective: Juilana Olguin is a 39 y.o. female who presents for evaluation for vestibuloplasty of the upper left, epulis fissuratum of the lower right. Patient states that she had her teeth taken out [id number]. Denies nausea, vomiting, fever, or chills. Objective: [...] fissuratum removal local anesthesia. Michael Araujo DDS plant tech Cosigned by kAin Shay DMD at 12/31/2024 9:14 AM EDT [...] Primary documented in this encounter Care Teams Paper Grader Relationship Specialty Start Date End Date Pcp, No 800 [place] [address] PCP - General Family Medicine 09/05/24 Bren Lira DMD [address] [address] Dentist 09/18/24 Eugene Holloway Dental Student Dental Diagnostic Sales Specialist 09/18/24 documented as of this encounter
--- OUTSIDE RECORDS SUMMARY | 2025-01-09 03:53 | XMS_ITS | Encounter Summary ---
Author Organization [facility] Address [address] [place] [id number] Care Team Providers Care Spray Cementer Name Role Phone Ryan Love MD Primary Care Provider [phone] Source Comments This information has been disclosed [...] release of HIV test results or diagnoses. [id number] Reason for Visit * Reason Comments Abscess Encounter Details Date Type Department Care Team (Late st Contact Info) Description 01/09/2025 3:53 AM EDT - 01/09/2025 7:21 AM EDT Emergency [facility] Emergency Department [address] [place] [id number] Franki Pedroza MD [address] [facility] [address] Abscess (Primary Dx) Discharge Disposition: Home or Self Care WITHOUT Home Care Services Social History Tobacco Use Types Packs/Day Years [...] Sign Reading Time Taken Comments Blood Pressure 129/54 01/09/2025 6:44 AM EDT Pulse 62 01/09/2025 6:44 AM EDT Temperature 36.8 C (98.3 F) 01/08/2025 11:42 PM EDT Respiratory Rate 18 01/09/2025 6:44 AM EDT Oxygen Saturation 100% 01/09/2025 6:44 AM EDT Inhaled Oxygen Concentration 100% 01/09/2025 6 :44 AM EDT Weight - - Height - - Body Mass Index - - documented in this encounter Discharge Instructions * Discharge Instructions* Richard Chan MD - 01/09/2025 6:38 AM EDT You are seen in the emergency department today for a skin abscess. This was drained in the emergency department. I have prescribed 2 antibiotics for you to take 1 is called Keflex the other is calledBactrim. Please take these as prescribed for the next 7 days. I also recommend following up with your primary care provider tomorrow as scheduled for evaluation. You may remove the pack wound packingin the next 48-72 hours. If you notice increased swelling, redness to the area, extension into yourgenitalia, fevers, chills, worsening pain, recurrence in the abscess please return back to the emergency department for evaluation. * Attachments The following attachments cannot be sent through Care Everywhere. * Skin Abscess [id number] (Polish) documented in this encounter Medications at Time of Discharge albuterol (VENTOLIN HFA) 90 mcg/actuation Inhl inhaler Inhale 2 puffs into the lungs every 6 hours as needed for Shortness of Breath. 11/23/2020 aspirin 81 MG EC tablet Take 1 tablet (81 mg total) by mouth daily. 11/07/2021 azelastine (ASTELIN) 137 mcg (0.1 %) nasal spray Use 1 spray into each nostril 2 times a day. Use in each nostril as directed baclofen (LIORESAL) 10 MG tablet Take 1 tablet (10 mg total) by mouth 2 times a day. budesonide/formo terol fumarate (SYMBICORT INHL) Inhale 1 puff into the lungs 2 times a day. cetirizine (ZYRTEC) 10 MG tablet Take 1 tablet (10 mg total) by mouth daily. cloNIDine HCL (CATAPRES) 0.1 MG tablet Take 1 tablet (0.1 mg total) by mouth 2 times a day as needed. dextromethorphan -guaifenesin (MUCINEX DM) 30-600 mg per 12 hr tablet Take 1 tablet by mouth every 12 hours as needed. diphenhydrAMINE (BENADRYL) 50 MG capsule Take 1 capsule (50 mg total) by mouth every 6 hours as needed for Itching. HYDROcodone-acet aminophen (NORCO) 5-325 mg per tablet Take 5 mg of hydrocodone by mouth 3 times a day. lithium (ESKALITH) 450 MG ER tablet Take 1 tablet (450 mg total) by mouth 2 times a day. metoprolol succinate (TOPROL-XL) 25 MG 24 hr tablet Take 0.5 tablets (12.5 mg total) by mouth daily. 11/07/2021 QUEtiapine (SEROQUEL) 50 MG tablet Take 1 tablet (50 mg total) by mouth at bedtime. 10/24/2021 vortioxetine (TRINTELLIX) 10 mg Tab Take 1 tablet (10 mg total) by mouth daily. cephALEXin (KEFLEX) 500 MG capsuleIndicatio ns:Abscess Take 1 capsule (500 mg total) by mouth 4 times daily before meals and at bedtime for 7 days. 28 capsule 01/09/2025 5 sulfamethoxazole -trimethoprim (BACTRIM DS) 800-160 mg per tabletIndication s:Abscess Take 1 tablet by mouth 2 times a day for 7 days. 14 tablet 01/09/2025 5 documented as of this encounter Progress Notes * Franki Pedorza MD - 01/09/2025 4:43 AM EDT ED Attending Attestation Note Date of service: 01/09/2025 This patient was seen by the resident physician. I have seen and examined the patient, agree with the workup, evaluation, management and diagnosis. The care plan has been discussed and I concur. My assessment reveals a 39 y.o. female nontoxic-appearing patient. Afebrile unremarkable vital signs. Fairly significant abscess to the medial proximal thigh not involving the genitalia. No systemic symptoms. I was present for the entirety of the resident performed incision and drainage.. documented in this encounter H&P Notes * Richard Chan MD - 01/09/2025 6:35 AM EDT Images from the original note were not included. [facility] ED Note Date of Service: 01/09/2025 Reason for Visit: Abscess Patient History JARED Olguin is a 39 y.o. female with history as noted below who presents with a chief complaint of abscess. Patient states that she noticed a painful lump to her right superior inner thigh over the day. No fevers or constitutional symptoms. States that she has had abscesses before that required I&D. States that it does not involve her genitalia. Past Medical History Past Medical History: Diagnosis Date Anxiety Arthritis Asthma Bilateral leg numbness Bipolar 2 disorder ([facility]) COPD (chronic obstructive pulmonary disease) ([facility]) Degenerative disc disease, lumbar History of pancreatitis Peripheral neuropathy Pre-diabetes Prediabetes Past Surgical History Past Surgical History: Procedure Laterality Date YOANDY-EN-Y PROCEDURE 2017 Family History No family history on file. Social History Juliana Olguin reports that she has been smoking cigarettes. She has a 6 pack- year smoking history. She has never used smokeless tobacco. She reports current alcohol use of about 2.0 standard drinks of alcohol per week. She reports that she does not use drugs. Home Medications Discharge Medication List as of 01/09/2025 6:50 AM CONTINUE these medications which have NOT CHANGED Details albuterol (VENTOLIN HFA) 90 mcg/actuation Inhl inhaler Inhale 2 puffs into the lungs every 6 hours as needed for Shortness of Breath., Starting Sun11/23/2020, Historical Med aspirin 81 MG EC tablet Take 1 tablet (81 mg total) by mouth daily., Starting 11/07/2021, Historical Med azelastine (ASTELIN) 137 mcg (0.1 %) nasal spray Use 1 spray into each nostril 2 times a day. Use in each nostril as directed, Historical Med baclofen (LIORESAL) 10 MG tablet Take 1 tablet (10 mg total) by mouth 2 times a day., Historical Med budesonide/formoterol fumarate (SYMBICORT INHL) Inhale 1 puff into the lungs 2 times a day., Historical Med cetirizine (ZYRTEC) 10 MG tablet Take 1 tablet (10 mg total) by mouth daily., Historical Med cloNIDine HCL (CATAPRES) 0.1 MG tablet Take 1 tablet (0.1 mg total) by mouth 2 times a day as needed., Historical Med dextromethorphan-guaifenesin (MUCINEX DM) 30-600 mg per 12 hr tablet Take 1 tablet by mouth every 12 hours as needed., Historical Med diphenhydrAMINE (BENADRYL) 50 MG capsule Take 1 capsule (50 mg total) by mouth every 6 hours as needed for Itching., Historical Med HYDROcodone-acetaminophen (NORCO) 5-325 mg per tablet Take 5 mg of hydrocodone by mouth 3 times a day., Historical Med lithium (ESKALITH) 450 MG ER tablet Take 1 tablet (450 mg total) by mouth 2 times a day., Historical Med metoprolol succinate (TOPROL-XL) 25 MG 24 hr tablet Take 0.5 tablets (12.5 mg total) by mouth daily., Starting Sun11/07/2021, Historical Med QUEtiapine (SEROQUEL) 50 MG tablet Take 1 tablet (50 mg total) by mouth at bedtime., Starting Sun10/24/2021, Historical Med vortioxetine (TRINTELLIX) 10 mg Tab Take 1 tablet (10 mg total) by mouth daily., Historical Med Allergies: Allergies as of 01/08/2025 - Fully Reviewed 01/08/2025 Allergen Reaction Noted Moxifloxacin 09/15/2011 Review of Systems All relevant systems negative except for pertinent positives and negatives as noted in the HPI. Physical Exam Vitals: 01/08/25 2342 01/09/25 0644 BP: 128/69 129/54 BP Location: Left upper arm Right upper arm Patient Position: Sitting Lying BP Cuff Size: Large Large Pulse: 77 62 Resp: 16 18 Temp: 98.3 ??F (36.8 ??C) TempSrc: Oral SpO2: 98% 100% General: Well appearing. No acute distress Eyes: Pupils reactive. No discharge from eyes ENT: No discharge from nose. OP clear. Neck: Supple, trachea midline Pulmonary: Non-labored breathing. Breath sounds clear bilaterally. Cardiac: Regular rate and rhythm. No murmurs. Abdomen: Soft. Non-tender. Non-distended. Musculoskeletal: No long bone deformity. Vascular: Extremities warm and perfused. Skin: 2 x 3 cm superficial abscess noted to the right inguinal region. Does not involve the genitalia. Is extremely tender to palpation with induration, underlying fluctuance. 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 Extremities: No peripheral edema. Neuro: Alert. No facial asymmetry. Moves all four extremities to command. Psychiatric: Mood normal. Affect appropriate for situation. Diagnostic Studies Labs: Please see EMR for laboratory studies performed in the ED. Radiology: Please see EMR for imaging studies performed in the ED. EKG: EKG not obtained, not indicated Emergency Department Procedures Procedures ED Course and MDM Juliana Olguin is a 39 y.o. female with a history and presentation as described above in HPI. The patient was evaluated by myself and the ED Attending Physician, Dr. Pedroza, and R4 Dr. Liu. All management and disposition plans were discussed and agreed upon. Medical Decision Making Problems Addressed: Abscess: complicated acute illness or injury Risk Prescription drug management. Initial impression reveals a nontoxic-appearing 39-year-old female with normal vital signs. Briefly, this is a patient presenting for evaluation of a right inguinal abscess. Physical exam demonstrating a fairly significant right inguinal abscess without involvement of the genitalia. No fevers or systemic symptoms. Bedside ultrasound demonstrating a approximately 1 x 2 cm subcutaneous abscess. Will perform incision and drainage, packing treat with antibiotics as outpatient given the absence of vital sign abnormalities, constitutional signs, and involvement of the genitalia. Incision and drainage performed without complication with copious purulent discharge appreciated. The wound was irrigated copiously with saline. The wound was packed with iodoform gauze and dressed. She was provided Keflex, Bactrim for antibiotic coverage. She does have a PCP appointment in the next few days and she was encouraged to follow-up with the PCP regarding the drainage, and packing. Shewas discharged in stable condition. Medications received during this ED visit: Medications lidocaine-EPINEPHrine 1 %-1:100,000 injection 10 mL (10 mLs Intradermal Given 01/09/25 0609) oxyCODONE (ROXICODONE) immediate release tablet 10 mg (10 mg Oral Given 01/09/25 0552) Impression 1. Abscess Plan Discharge in stable/improved condition Patient will be discharged in stable or improved condition. The workup, treatment, and diagnoses were discussed with the patient and/or their family members. The patient agrees to the plan and questions were addressed and answered. The patient is instructed to return to the emergency department should their symptoms worsen or any concern they believes warrants acute physician evaluation. Specificreturn precautions discussed include: Increasing pain, swelling, redness, fevers, recurrent foul-smelling drainage, involvement of the genitalia, or any new or worsening symptoms. Discharge Medications: Discharge Medication List as of 01/09/2025 6:50 AM START taking these medications Details cephALEXin (KEFLEX) 500 MG capsule Take 1 capsule (500 mg total) by mouth 4 times daily before meals and at bedtime for 7 days., Starting Sun01/09/2025, Until Sun01/16/2025, Normal, Disp-28 capsule, R-0 sulfamethoxazole-trimethoprim (BACTRIM DS) 800-160 mg per tablet Take 1 tablet by mouth 2 times a day for 7 days., Starting Sun01/09/2025, Until Sun01/16/2025, Normal, Disp-14 tablet, R-0 RICHARD CHAN MD, PGY-1 Emergency Medicine Richard Chan MD Resident 01/09/25 182 Cosigned by Franki Pedroza MD at 01/09/2025 11:03 PM EDT documented in this encounter Procedure Notes * Richard Chan MD - 01/09/2025 7:21 AM EDTAssociated Order(s): Incision/Drainage [facility] ED Procedure Note Emergency Department Procedures Incision/Drainage Date/Time: 01/09/2025 7:42 AM Performed by: Richard Chan MD Authorized by: Franki Pedroza MD Consent: Verbal consent obtained Risks and benefits: risks, benefits and alternatives were discussed Consent given by: patient Patient understanding: patient states understanding of the procedure being performed Patient consent: the patient's understanding of the procedure matches consent given Procedure consent: procedure consent matches procedure scheduled Patient identity confirmed: verbally with patient and arm band Type: abscess Location: Right upper thigh. Anesthesia: local infiltration Anesthesia: Local Anesthetic: lidocaine 1% with epinephrine Anesthetic total: 10 mL Sedation: Patient sedated: no Scalpel size: 15 Needle gauge: 20 Incision type: single straight Incision depth: subcutaneous Complexity: simple Drainage: purulent and bloody Drainage amount: moderate Wound treatment: wound left open Packing material: 1/2 in iodoform gauze Patient tolerance: patient tolerated the procedure well with no immediate complications Cosigned by Franki Pedroza MD at 01/09/2025 11:03 PM EDT documented in this encounter Nursing Notes * Eufemia Nassar RN - 01/08/2025 11:38 PM EDT Pt to [facility] with c/o multiple abscesses to her vaginal area/ groin. Pt states they have been there a couple days. Pt states she was previously seen for them a while ago and provided with abx or they were lanced. Pt ambulatory to triage A&O x4 documented in this encounter ED Notes * Ivory Steiner RN - 01/09/2025 7:17 AM EDT Report received from Lorena TUBBS * Lorena Gerardo RN - 01/09/2025 5:55 AM EDT MD at bedside. * Lorena Gerardo RN - 01/09/2025 5:33 AM EDT Pt resting comfortably with eyes closed. Call light within reach, no other questions or concerns. Side rails up for safety. NSR noted per monitor. Respirations are easy, even and unlabored. * Lorena Gerardo RN - 01/09/2025 4:24 AM EDT Pt resting comfortably with eyes closed. Call light within reach, no other questions or concerns. Side rails up for safety. NSR noted per monitor. Respirations are easy, even and unlabored. * Alisson Carpio RN - 01/09/2025 3:53 AM EDT Bed: [id number] Expected date: Expected time: Means of arrival: Comments: TRIAGE-valerie documented in this encounter Miscellaneous Notes * ED Medical Screening Exam - DEBBIE Chambers - 01/08/2025 11:50 PM EDT [facility] MEDICAL SCREENING EXAM Date of Service: 01/09/2025 Reason for Visit: Abscess MSE Plan Patient evaluated from the [facility] for a medical screening exam. In short, this is a patient presenting with right groin abscess, lower abdominal/groin rash and low back pain with frequent falls. To further evaluate their complaints, the following orders have been placed: Labs Reviewed - No data to display No orders to display No results found for this or any previous visit (from the past 4160 hours). Stable for [facility] while awaiting ED bed. See primary provider's note for full details and final disposition. Brief HPI Juliana Olguin is a 39 y.o. female, with a history of asthma, anxiety, bipolar disorder, peripheral neuropathy, prediabetes and lumbar degenerative disc disease for which she is opiate dependent, presenting with multiple complaints. She complains of an approximate 1 week history of painful boil on her right inner thigh just distal to the groin that has not been draining. She also reports multiple abscesses under her abdominal fold and groin however on exam, it appears more consistent with fungalinfection with no obvious drainable abscesses on quick visualization. She also reports falling for no known reasons 2-3 times a week over the last month and was recommended to be evaluated by her pain management physician. She has paresthesias in the feet and distal two thirds of the lower legs which she states is her baseline, unchanged. Denies weakness in the legs. She does report occasional urinary incontinence that has been persistent for several years, unchanged. She had a more recent episode of incontinence of stool when straining. Pertinent Physical Exam ED Triage Vitals Encounter Vitals Group BP 01/08/25 2342 128/69 Girls Systolic BP Percentile -- Girls Diastolic BP Percentile -- Boys Systolic BP Percentile -- Boys Diastolic BP Percentile -- Heart Rate 01/08/25 2342 77 Resp 01/08/25 2342 16 Temp 01/08/25 2342 98.3 ??F (36.8 ??C) Temp Source 01/08/25 2342 Oral SpO2 01/08/252 98 % Weight -- Height -- Head Circumference -- Peak Flow -- Pain Score 01/08/25 2340 Seven Pain Loc -- Pain Education -- Exclude from Growth Chart -- Physical Exam Vitals reviewed. Constitutional: General: She is not in acute distress. Appearance: She is well-developed. She is obese. HENT: Head: Normocephalic and atraumatic. Mouth/Throat: Mouth: Mucous membranes are moist. Neck: Trachea: Phonation normal. Cardiovascular: Rate and Rhythm: Normal rate and regular rhythm. Heart sounds: No murmur heard. No friction rub. No gallop. Pulmonary: Effort: Pulmonary effort is normal. No respiratory distress. Breath sounds: No wheezing, rhonchi or rales. Musculoskeletal: Cervical back: Normal range of motion and neck supple. Lumbar back: Bony tenderness (diffuse, lumbar) present. No swelling, deformity or spasms. Normal range of motion. Skin: General: Skin is warm and dry. Findings: Abscess (approximately 3 cm right proximal medial thigh) and rash (Moist, pink, macular malodorous rash under the abdominal pannus and in the groin folds.) present. Neurological: Mental Status: She is alert and oriented to person, place, and time. Sensory: Sensation is intact. Motor: Motor function is intact. Psychiatric: Mood and Affect: Mood and affect normal. Behavior: Behavior normal. Patient History Medical History: Past Medical History: Diagnosis Date Anxiety Arthritis Asthma Bilateral leg numbness Bipolar 2 disorder ([facility]) COPD (chronic obstructive pulmonary disease) ([facility]) Degenerative disc disease, lumbar History of pancreatitis Peripheral neuropathy Pre-diabetes Prediabetes Surgical History: Past Surgical History: Procedure Laterality Date YOANDY-EN-Y PROCEDURE 2017 Medications: No current facility-administered medications for this encounter. Current Outpatient Medications: albuterol (VENTOLIN HFA) 90 mcg/actuation Inhl inhaler, Inhale 2 puffs into the lungs every 6 hoursas needed for Shortness of Breath., Disp: , Rfl: aspirin 81 MG EC tablet, Take 1 tablet (81 mg total) by mouth daily., Disp: , Rfl: azelastine (ASTELIN) 137 mcg (0.1 %) nasal spray, Use 1 spray into each nostril 2 times a day. Use in each nostril as directed, Disp: , Rfl: budesonide/formoterol fumarate (SYMBICORT INHL), Inhale 1 puff into the lungs 2 times a day., Disp:, Rfl: lithium (ESKALITH) 450 MG ER tablet, Take 1 tablet (450 mg total) by mouth 2 times a day., Disp: , Rfl: metoprolol succinate (TOPROL-XL) 25 MG 24 hr tablet, Take 0.5 tablets (12.5 mg total) by mouth daily., Disp: , Rfl: vortioxetine (TRINTELLIX) 10 mg Tab, Take 1 tablet (10 mg total) by mouth daily., Disp: , Rfl: baclofen (LIORESAL) 10 MG tablet, Take 1 tablet (10 mg total) by mouth 2 times a day., Disp: , Rfl: cetirizine (ZYRTEC) 10 MG tablet, Take 1 tablet (10 mg total) by mouth daily., Disp: , Rfl: cloNIDine HCL (CATAPRES) 0.1 MG tablet, Take 1 tablet (0.1 mg total) by mouth 2 times a day as needed., Disp: , Rfl: dextromethorphan-guaifenesin (MUCINEX DM) 30-600 mg per 12 hr tablet, Take 1 tablet by mouth every 12 hours as needed., Disp: , Rfl: diphenhydrAMINE (BENADRYL) 50 MG capsule, Take 1 capsule (50 mg total) by mouth every 6 hours as needed for Itching., Disp: , Rfl: HYDROcodone-acetaminophen (NORCO) 5-325 mg per tablet, Take 5 mg of hydrocodone by mouth 3 times a day., Disp: , Rfl: QUEtiapine (SEROQUEL) 50 MG tablet, Take 1 tablet (50 mg total) by mouth at bedtime., Disp: , Rfl: Allergies: Allergies[1] DEBBIE Tavarez [1] Allergies Allergen Reactions Moxifloxacin documented in this encounter Plan of Treatment Not on file documented as of this encounter Procedures Procedure Name Priority Date/Time Associated Diagnosis Comments INCISION AND DRAINAGE Routine 01/09/2025 7:42 AM EDT POC GLU MONITORING DEVICE Routine 01/09/2025 12:34 AM EDT documented in this encounter Results * Incision/Drainage (01/09/2025 7:42 AM EDT) Franki Kauffman MD - 01/09/2025 7:42 AM EDT Franki Pedroza MD 01/09/2025 11:03 PM Incision/Drainage Date/Time: 01/09/2025 7:42 AM Performed by: Richard Chan MD Authorized by: Franki Pedroza MD Consent: Verbal consent obtained Risks and benefits: risks, benefits and alternatives were discussed Consent given by: patient Patient understanding: patient states understanding of the procedure being performed Patient consent: the patient's understanding of the procedure matches consent given Procedure consent: procedure consent matches procedure scheduled Patient identity confirmed: verbally with patient and arm band Type: abscess Location: Right upper thigh. Anesthesia: local infiltration Anesthesia: Local Anesthetic: lidocaine 1% with epinephrine Anesthetic total: 10 mL Sedation: Patient sedated: no Scalpel size: 15 Needle gauge: 20 Incision type: single straight Incision depth: subcutaneous Complexity: simple Drainage: purulent and bloody Drainage amount: moderate Wound treatment: wound left open Packing material: 1/2 in iodoform gauze Patient tolerance: patient tolerated the procedure well with no immediate complications Franki Pedroza MD PROCEDURE/MINOR SURGICAL ORDER LORI Final Result * (ABNORMAL) POC Glucose Monitoring Device (01/09/2025 12:34 AM EDT) POC Glucose Monitoring Device 113(H) 70 - 100 mg/dL 01/09/2025 12:35 AM EDT [facility] Blood 01/09/2025 12:3 4 AM EDT 01/09/2025 12:35 AM EDT Result [facility] Ryan Love MD POINT OF CARE TEST ORDERABLES F inal Result Performing Organization Address City/State/[facility] Co de Phone Number [facility] [address] documented in this encounter Visit Diagnoses Diagnosis Abscess- Primary Cellulitis and abscess of unspecified site documented in this encounter Administered Medications Inactive Administered Medications - up to 3 most recent administrations Medication Order MAR Action Action Date Dose Rate Site lidocaine-EPINEPHrine 1 %-1:100,000 injection 10 mL 10 mL, Intradermal, Once, On Sun01/09/25 at 0503, For 1 dose Given 01/09/2025 6:09 AM EDT 10 mLs Other oxyCODONE (ROXICODONE) immediate release tablet 10 mg 10 mg, Oral, Once, On Sun01/09/25 at 0541, For 1 dose Given 01/09/2025 5:52 AM EDT 10 mg documented in this encounter Active and Recently Administered Medications Times are shown in EDT. Scheduled Medication Order 01/07/2025 01/08/2025 01/09/2025 lidocaine-EPINEPHrine 1 %-1:100,000 injection 10 mL (COMPLETED) 10 mL, Intradermal, Once, On Sun01/09/25 at 0503, For 1 dose 0609 (Given - Provid er: Lorena Gerardo RN - Comment: given by MD) oxyCODONE (ROXICODONE) immediate release tablet 10 mg (COMPLETED) 10 mg, Oral, Once, On Sun01/09/25 at 0541, For 1 dose 0552 (Given - Provid er: Lorena Gerardo RN) documented in this encounter Care Teams Spray Cementer Relationship Specialty Start Date End Date Ryan Love MD [address] [place] [address] PCP - General Family Medicine 09/24/24 documented as of this encounter
--- OUTSIDE RECORDS SUMMARY | 2025-01-09 22:05 | XMS_ITS | Encounter Summary ---
Author [place] [address] Care Team Providers Care Case Management Assistant Name Role Phone Ryan Love MD Primary Care Provider [phone] Reason for Visit * Reason Comments Wound Check Pt had a MRSA bump drained at [facility] yesterday, now the packing has fallen out, she states she is here to have it repacked. Wound is located on her right upper inner thigh. Encounter Details Date Type Department Care Team (Late Contact Info) Description 01/09/2025 10:05 PM EDT - 01/09/2025 11:01 PM EDT Emergency [facility] [address] [place] [id number] Nisa Carter MD [address] [place] [address] [place] [address] Visit for wound check (Primary Dx); Abscess; Yeast vaginitis Discharge Disposition: Home or Self Care Social History Tobacco Use Types Packs/Day Years Used Date Smoking Tobacco: Every Day Cigarettes 0.5 28.1 Started: 12/25/1996 Smokeless Tobacco: Never Alcohol Use Standard Drinks/Week Comments Yes 0 (1 standard drink = 0.6 oz pur e alcohol) occ Overall Financial Resource Strain (CARDIA) Madie r Date Recorded How hard is it [...] of Assessment Author No 08/17/2021 12:27 PM EST Selwyn Harrison RN * Suicide Severity Rating Answer Date of Assessment Author No Risk 01/09/2025 10:17 PM EDT Azam Frances RN * [place] Suicide Severity Rating Scale (Q shift for [...] Entry Date Author No 08/17/2021 12:27 PM EST Selwyn Harrison RN documented in this encounter Discharge Instructions [...] Means Destination Comment s Home or Self Longterm documented in this encounter ED Notes * Curtis George NP - 01/09/2025 9:49 PM EDTAssociated Order(s): Incision-Drainage Post-Procedure Diagnose(s): Abscess Images from the original note were not included. Chief Complaint Patient presents with Wound Check Pt had a MRSA bump drained at [facility] yesterday, now the packing has fallen out, she states she is here to have it repacked. Wound is located on her right upper inner thigh. Wound Check 39 y.o. y.o. with has a past medical history of Arthritis, Asthma, Bipolar 2 disorder ([facility]), COPD (chronic obstructive pulmonary disease) ([facility]), Diabetes mellitus ([facility]), and H/O degenerative disc disease. presents to ED with c/o packing falling out of an abscess. Patient had I&D at [facility] this morning. She was prescribed Bactrim [...] nursing note reviewed. Exam conducted with a geriatric social worker present. Constitutional: General: She is not [...] discussed: No treatment, alternative treatment and referral [place] protocol: Patient identity confirmed: Verbally with patient Pre-procedure details: Skin preparation: Povidone-iodine Procedure details: Wound management: Irrigated with saline Packing materials: 1/ in iodoform gauze Comments: Patient had I&D [...] may contain unintended errors Curtis George NP 01/09/25 2243 Cosigned by Nisa Carter MD at 01/10/2025 [...] * Incision-Drainage (01/09/2025 10:44 PM EDT) Narrative [facility] - 01/09/2025 10:44 PM EDT Nisa Carter MD 01/10/2025 8:13 AM Incision-Drainage Date/Time: 01/09/2025 10:44 PM Performed by: Curtis George NP Authorized by: Curtis George NP Consent: Consent obtained: Verbal Consent given by: Patient Risks, benefits, and alternatives were discussed: yes Risks discussed: Bleeding, incomplete drainage, pain, damage to other organs and infection Alternatives discussed: No treatment, alternative treatment and referral [place] protocol: Patient identity confirmed: Verbally with patient Pre-procedure details: Skin preparation: Povidone-iodine Procedure details: Wound management: Irrigated with saline Packing materials: 07/19 in iodoform gauze Comments: Patient had I&D done at . Her packing fallen out. We placed packing after irrigating the wound Curtis George NP PROCEDURE/MINOR SURGICAL ORDER LORI Final Result [facility] [address] [place] [address] documented in this encounter Visit Diagnoses Diagnosis [...] at 2245, Reason for Therapy: Medical Prophylaxis 2257 (Given - Provid er: KENNY Antunez) documented in this encounter Orders Medications Ordered That [place] ht Not Have Been Administered Count Last Ordered Date First Ordered Date fluconazole (DIFLUCAN) tablet 150 mg 1 12/15 documented in this encounter Care Teams Case Management Assistant Relationship Specialty Start Date End Date Ryan Love MD PCP - General Family Medicine 08/14/21 documented as of this encounter
--- OUTSIDE RECORDS SUMMARY | 2025-01-15 07:30 | XMS_ITS | Encounter Summary ---
Author Organization Healthcare Address [address] [place] [address] Care Team Providers Care Appraiser Land Name Role Phone Pcp, No Primary Care Provider Unavailabl e Bren Lira DMD Unavailable [phone] Eugene Holloway Unavailable Unavailabl e Encounter Details Date Type Department Care Team (Latest Contact Info) Description 01/15/2025 7:30 AM EDT Office Visit [facility] sales [facility] [address] [place] [phone] Garrison Galindo, DMD [address] [place] [address] Oral mucosal lesion (Primary Dx) Social History [...] Patient to follow-up p.r.n. Garrison Galindo DMD [facility] epitaxial reactor operator PGY-1 Pager #: [phone] Cosigned by Akin Shay DMD at 01/21/2025 8:36 AM EDT Associated attestation - Akin Shay DMD - 01/21/2025 8:36 AM EDT I was present during all critical and ashton portions of the procedure(s) and immediately available [facility] services the entire duration. See resident note [...] documented as of this encounter Care Teams Appraiser Land Relationship Specialty Start Date End Date Pcp, No [address] [place] [address] PCP - General Family Medicine 09/05/24 Bren Lira, DMD [address] [phone] Dentist 09/18/24 Eugene Holloway Dental Student Dental Assembler 1St Shift 09/18/24 documented as of this encounter
--- OUTSIDE RECORDS SUMMARY | 2025-02-16 15:30 | XMS_ITS | Encounter Summary ---
Author Organization [facility] Address [address] [place] [address] Care Team Providers Care Scalp Specialist Name Role Phone Pcp, No Primary Care Provider Unavailabl e Bren Lira DMD Unavailable Eugene Holloway Unavailable Unavailabl e Reason for Referral * Consultation (Routine) - Authorized Specialty Diagnoses / Procedures Referred By Octavio t Referred To Contact Neurosurgery Diagnoses Thoracic, thoracolumbar and lumbosacral intervertebral disc disorder Ryan Love MD [address] [place] [address] Phone: tel: fax: Referral ID Status Reason Start Date Expiration Date Visits Requested Visits Authorized [id number] Authorized Specialty Services Required 02/04/2024 08/05/2025 1 1 Encounter Details Date Type Department Care Team (Latest Contact Info) Description 02/04/2024 Community [facility] [address] [place] [address] Ryan Love MD [address] [place] [address] Thoracic, thoracolumbar and lumbosacral intervertebral disc disorder (Primary Dx) Social History Tobacco Use Types Packs/Day Years Used Date Smoking Tobacco: Never Assessed Comments Unknown Sex and Gender Information Value Date Recorded Sex Assigned at Not on file Legal Sex Female 8:06 PM EDT Gender Identity Not on file Sexual Orientation Not on file documented as of this encounter Plan of Treatment Scheduled Referrals Name Type Priority Associated Diagnoses Orde r Schedule Ambulatory Referral to Neurosurgery Outpatient Referral Routine Thoracic, thoracolumbar and lumbosacral intervertebral disc disorder Expected: 02/04/2024 (Approximate), Expires: 08/06/2025 documented as of this encounter Visit Diagnoses Diagnosis Thoracic, thoracolumbar and lumbosacral intervertebral disc disorder- Primary documented in this encounter Care Teams Scalp Specialist Relationship Specialty Start Date End Date Pcp, No 800 [place] [address] PCP - General Family Medicine 09/05/24 Bren Lira, DMD [address] [phone] Dentist 09/18/24 Eugene Holloway Dental Student Dental Criminal Defense Lawyer 09/18/24 documented as of this encounter
--- OUTSIDE RECORDS SUMMARY | 2025-02-16 15:30 | XMS_ITS | Encounter Summary ---
Author Organization [facility] Address [address] [place] [address] Care Team Providers Care Car Trimmer Name Role Phone Pcp, Paulina Primary Care Provider Unavailabl e Bren Lira DMD Unavailable Eugene Holloway Unavailable Unavailabl e Encounter Details Date Type Department Care Team (Latest Contact Info) Description 01/15/2025 Travel Social History Tobacco Use Types Packs/Day [...] Diagnoses Not on filedocumented in this encounter Additional Health Concerns Assessment Noted Time A Body Mass Index follow-up plan has been documented for the patient 01/16/2025 12:08 PM EDT documented as of this encounter Care Teams Car Trimmer Relationship Specialty Start Date End Date Pcp, No [address] [place] [address] PCP - General Family Medicine 09/05/24 Bren Lira DMD [address] [phone] Dentist 09/18/24 Eugene Holloway Dental Student Dental Plow And Boring Machine Tender 09/18/24 documented as of this encounter
--- OUTSIDE RECORDS SUMMARY | 2025-02-16 15:30 | XMS_ITS | Clinical Summary ---
Author Organization [facility] Address [address] [facility] [place] [address] Phone Care Team Providers Care Chief Jailer Name Role Phone Ryan Love MD Primary Care Provider [phone] Allergies Active Allergy Reactions Criticality Noted Date [...] disorder) 04/18/2013 Asthma 04/18/2012 Bipolar 2 disorder Encounters Date Type Department Care Team Description 01/09/2025 10:05 PM EDT - 01/09/2025 11:01 PM EDT Emergency [facility] [place] [address] [place] [address] Nisa Carter MD Visit for wound check (Primary Dx); Abscess; Yeast vaginitis Discharge Disposition: Home or Self Care 01/09/2025 Travel from Last 3 Months Surgical History Surgery Date Site/Laterality Comments YOANDY-EN-Y GASTRIC BYPASS 07/16/2017 - 07/15/2018 Medical History Medical History Date Comments Diabetes mellitus (HCC) Asthma Bipolar 2 disorder (HCC) Arthritis COPD (chronic obstructive pulmonary disease) ([facility]) H/O degenerative disc disease Social History Tobacco Use Types Packs/Day Years Used Date Smoking Tobacco: Every Day Cigarettes 0.5 28.1 Started: 12/25/1996 Smokeless Tobacco: Never Tobacco Cessation:Ready [...] Mass Index 43.85 01/09/2025 10:04 PM EDT Plan of Treatment Health Maintenance Due Date Last Done Comments Annual Wellness Exam 1986 DTaP/TDaP/Td (1 - Tdap) 2002 Hepatitis B Vaccine (1 of 3 - 19+ 3-dose series) 2002 Cervical Cancer Screening 2004 Pap Smear 2004 HPV/Pap Cotest 2013 Breast Cancer Screening 2023 COVID-19 Vaccine (3 - 2023-2 5 season) 2024 11/24/2020, 10/27/2020 Influenza Vaccine (#1) 2025 , 04/28/2023, 05/09/2021 Pneumococcal Vaccine 0-49 Completed 08/21/2023 Meningococcal B Vaccine Aged Out No l onger eligible based on patient's age to complete this topic Procedures Procedure Name Priority Date/Time Associated Diagnosis Comments ED INCISION AND DRAINAGE Routine 01/09/2025 10:44 PM EDT Abscess from Last 3 Months Results * Incision-Drainage (01/09/2025 10:44 PM EDT) Narrative [facility] - 01/09/2025 10:44 PM EDT Nisa Carter MD 01/10/2025 8:13 AM Incision-Drainage Date/Time: 01/09/2025 10:44 PM Performed by: Curtis George NP Authorized by: Curtis George NP Consent: Consent obtained: Verbal Consent given by: Patient Risks, benefits, and alternatives were discussed: yes Risks discussed: Bleeding, incomplete drainage, pain, damage to other organs and infection Alternatives discussed: No treatment, alternative treatment and referral [place] protocol: Patient identity confirmed: Verbally with patient Pre-procedure details: Skin preparation: Povidone-iodine Procedure details: Wound management: Irrigated with saline Packing materials: 07/19 in iodoform gauze Comments: Patient had I&D done at . Her packing fallen out. We placed packing after irrigating the wound Curtis George NP PROCEDURE/MINOR SURGICAL ORDER LORI Final Result Performing Organization Address City/State/[facility] Co de Phone Number [facility] [address] [place] [address] from Last 3 Months Insurance CHOICE PLUS [id number] Advance Directives For more information, please contact: [phone] * Full Code (Latest Code Status on File) Date Activated Date Inactivated Comments 08/14/2021 11:15 PM 08/17/2021 5:25 PM Care Teams Chief Jailer Relationship Specialty Start Date End Date Ryan Love MD PCP - General Family Medicine 08/14/21
--- OUTSIDE RECORDS SUMMARY | 2025-02-16 15:30 | XMS_ITS | Encounter Summary ---
Author Organization [facility] [place] [address] Care Team Providers Care Voip Network Engineer Name Role Phone Ryan Love MD Primary Care Provider [phone] Encounter Details Date Type Department Care Team (Latest Contact Info) Description 01/09/2025 Travel Social History Tobacco Use Types Packs/Day [...] on file documented as of this encounter Functional Status * Is the [...] 10:17 PM EDT Azam Frances RN * [place] Suicide Severity Rating Scale (Q shift for [...] 6) 0 01/09/2025 10:17 PM EDT Bren Frances, R N 6. Have you ever done [...] Selwyn Welsh RN documented in this encounter Plan of Treatment Not on file documented as of this encounter Visit Diagnoses Not on filedocumented in this encounter Care Teams Voip Network Engineer Relationship Specialty Start Date End Date Ryan Love MD PCP - General Family Medicine 08/14/21 documented as of this encounter
--- OUTSIDE RECORDS SUMMARY | 2025-02-16 15:31 | XMS_ITS | Clinical Summary ---
Author Organization [facility] Address [address] [place] [address] Care Team Providers Care Trial Mgr Name Role Phone Pcp, No Primary Care Provider Unavailabl e Bren Lira DMD Unavailable Eugene Holloway Unavailable Unavailabl e Allergies No known active allergies Medications HYDROcodone-acetami nophen ([place]) 5-325 MG tabletIndications:P ain,Back pain Take 1 [...] Encounters Date Type Department Care Team Description 01/15/2025 7:30 AM EDT Office Visit [facility] [address] [place] [phone] Garrison Galindo, DMD Oral mucosal lesion (Primary Dx) 01/15/2025 Travel 12/26/2024 2:30 PM EDT Evaluation [facility] [address] [place] [phone] Akin Shay, DMD Oral mucosal lesion (Primary Dx) 12/26/2024 Travel 12/26/2024 Telephone [facility] [address] [place] [phone] Dental, Surgeon, 12/25/2024 Telephone [facility] [address] [place] [phone] Dental, SurgeonMD from Last 3 Months Family History Medical History Relation Name Comments Heart disease Maternal Grandmother Heart disease Mother Relation Name Status Comments Maternal Grandmother Mother Social History Tobacco Use Types Packs/Day Years Used Date Smoking Tobacco: Every Day Cigarettes 1 27 Smokeless Tobacco: Never Tobacco Cessation:Ready to Q [...] Mass Index 44.28 01/15/2025 7:34 AM EDT Plan of Treatment Health Maintenance Due Date Last Done Comments Dental Prophylaxis 1983 Dental X-Ray: Bitewings 1983 [facility]-Depression Screening 1983 [facility]-HIV Screening 1983 [facility]-Hepatitis C Screening 1983 [facility]-Infant/Child/Adol SDOH Screenings 1983 [facility]-Varicella Vaccines (1 of 2 - 13+ 2-dose series) 1996 HPV Vaccines (1 - 3-dose series) 1998 [facility]- SDOH Screenings 2001 [facility]-Adult SDOH Screenings 2001 [facility]-DTaP,Tdap,and Td Vaccine s (1 - Tdap) 2002 [facility]-Hepatitis B Vaccines (1 of 3 - 19+ 3-dose series) 2002 VII-FALFG-[id number] Vaccine (3 - 2023- season) 2024 11/24/2020, 10/27/2020 Dental Oral Exam 03/06/2025 09/05/2024 [facility]-Influenza Vaccine (#1) 03/16/202503/13, 04/28/2023, 05/09/2021 Dental X-Ray: Full Mouth 09/06/2027 09/05/2024 [facility]-Zoster Vaccines (1 of 2) 2033 [facility]-Pneumococcal Vaccine: Pediatrics (0 to 5 Years) and At-Risk Patients (6 to 49 Years) Completed 08/21/2023 [facility]-Obesity Intervention Completed 01/15/2025 [facility]-HIB Vaccines Aged Out No longer e [...] Most Recently Relevant to Health Maintenance [place] [address] Care Teams Trial Mgr Relationship Specialty Start Date End Date Pcp, No [address] [place] [address] PCP - General Family Medicine 09/05/24 Bren Lira, DMD [address] [phone] Dentist 09/18/24 Eugene Holloway Dental Student Dental Heat Treater Helper 09/18/24
--- OUTSIDE RECORDS SUMMARY | 2025-02-16 15:33 | XMS_ITS | Encounter Summary ---
Author Organization Healthcare Address [address] [place] [address] Care Team Providers Care Senior Unix Administrator Name Role Phone Pcp, No Primary Care Provider Unavailabl e Bren Lira DMD Unavailable Eugene Holloway Unavailable Unavailabl e Encounter Details Date Type Department Care Team (Late st Contact Info) Description 12/26/2024 Telephone [facility] [address] [phone] Dental, Surgeon, [address] [place], [place] [phone] Social History Tobacco Use Types Packs/Day Years [...] filedocumented in this encounter Care Teams Senior Unix Administrator Relationship Specialty Start Date End Date Pcp, No [address] [place] [address] PCP - General Family Medicine 09/05/24 Bren Lira, DASHAWN [address] [phone] Dentist 09/18/24 Eugene Holloway Dental Student Dental Car Seat Coverer 09/18/24 documented as of this encounter
--- OUTSIDE RECORDS SUMMARY | 2025-02-16 15:33 | XMS_ITS | Encounter Summary ---
Author Organization Healthcare Address [address] [place] [address] Care Team Providers Care Service Delivery Manager Name Role Phone Pcp, No Primary Care Provider Unavailabl e Bren Lira DMD Unavailable Eugene Holloway Unavailable Unavailabl e Encounter Details Date Type Department Care Team (Late st Contact Info) Description 12/25/2024 Telephone [facility] [address] [place] [phone] Dental, Surgeon, [address] [place], [place] [phone] Social History Tobacco Use Types Packs/Day Years [...] on filedocumented in this encounter Care Teams Service Delivery Manager Relationship Specialty Start Date End Date Pcp, Paulina [address] [place] [address] PCP - General Family Medicine 09/05/24 Bren Lira, DMD [address] [phone] Dentist 09/18/24 Eugene Holloway Dental Student Dental Journeyman Machinist 09/18/24 documented as of this encounter
--- OUTSIDE RECORDS SUMMARY | 2025-02-16 15:33 | XMS_ITS | Encounter Summary ---
Author Organization Healthcare Address [address] [place] [address] Care Team Providers Care Entrepreneurial Finance Professor Name Role Phone Pcp, No Primary Care [...] on filedocumented in this encounter Care Teams Entrepreneurial Finance Professor Relationship Specialty Start Date End Date Pcp, No 800 [place] [address] PCP - General Family Medicine 09/05/24 Bren Lira DMD [address] [phone] Dentist 09/18/24 Eugene Holloway Dental Student Dental Research Tech 09/18/24 documented as of this encounter
--- OUTSIDE RECORDS SUMMARY | 2025-02-16 15:33 | XMS_ITS | Clinical Summary ---
Author Organization [facility] Address [address] [place] [address] Care Team Providers Care General Forecaster Name Role Phone Ryan Love MD Primary Care Provider [phone] Source Comments This information has been disclosed [...] therelease of HIV test results or diagnoses. [id number] Health Allergies Active Allergy Reactions Criticality Noted Date Comments Moxifloxacin 09/15/2011 Medications cloNIDine HCL (CATAPRES) 0.1 MG tablet Take 1 tablet (0.1 mg total) by mouth 2 times a day as needed. Active aspirin 81 MG EC tablet Take 1 tablet (81 mg total) by mouth daily. 2 Active metoprolol succinate (TOPROL-XL) 25 MG 24 hr tablet Take 0.5 tablets (12.5 mg total) by mouth daily. 2 Active QUEtiapine (SEROQUEL) 50 MG tablet Take 1 tablet (50 mg total) by mouth at bedtime. 2 Active diphenhydrAMINE (BENADRYL) 50 MG capsule Take 1 capsule (50 mg total) by mouth every 6 hours as needed for Itching. Active budesonide/form oterol fumarate (SYMBICORT INHL) Inhale 1 puff into the lungs 2 times a day. Active azelastine (ASTELIN) 137 mcg (0.1 %) nasal spray Use 1 spray into each nostril 2 times a day. Use in each nostril as directed Active cetirizine (ZYRTEC) 10 MG tablet Take 1 tablet (10 mg total) by mouth daily. Active dextromethorpha n-guaifenesin (MUCINEX DM) 30-600 mg per 12 hr tablet Take 1 tablet by mouth every 12 hours as needed. Active vortioxetine (TRINTELLIX) 10 mg Tab Take 1 tablet (10 mg total) by mouth daily. Active albuterol (VENTOLIN HFA) 90 mcg/actuation Inhl inhaler Inhale 2 puffs into the lungs every 6 hours as needed for Shortness of Breath. Active lithium (ESKALITH) 450 MG ER tablet Take 1 tablet (450 mg total) by mouth 2 times a day. Active baclofen (LIORESAL) 10 MG tablet Take 1 tablet (10 mg total) by mouth 2 times a day. Active HYDROcodone-jenna taminophen (NORCO) 5-325 mg per tablet Take 5 mg of hydrocodone by mouth 3 times a day. Active Active Problems Problem Noted Date Diagnosed [...] EDT - 01/09/2025 7:21 AM EDT Emergency [facility] Emergency Department [address] [place] [phone] Franki Pedroza MD Abscess (Primary Dx) Discharge Disposition: Home or Self Care WITHOUT Home Care Services 01/08/2025 Travel 12/23/2024 9:46 PM EDT - 12/24/2024 12:31 AM EDT Emergency [facility] Emergency Department [address] [place] [address] Discharge Disposition: ED Dismiss - Left Before Treatment 12/23/2024 Travel 12/20/2024 Travel 12/19/2024 11:59 PM EDT - 12/20/2024 2:59 AM EDT Emergency [facility] Emergency Department [address] [place] [address] Discharge Disposition: ED Dismiss - Left Before Treatment from Last 3 Months Social History Tobacco [...] series) 2002 Cervical Cancer Screening/Pa p Smear (MyChart) 2013 Tobacco Cessation Readiness 08/02/2022 08/02/2021 Mammogram (MyChart) 2023 Immunization: COVID-19 ( season) 2024 11/24/2020, 10/27/2020 Immunization: Influenza (MyC louie) (#1) 2025 03/13/2024, 04/28/2023, 05/09/2021 Immunization: Pneumococcal Completed 08/21/2023 Hepatitis C Screening (MyChart) Completed Procedures Procedure [...] EDT from Last 3 Months Results * Incision/Drainage (01/09/2025 7:42 AM EDT) Franki Kauffman MD - 01/09/2025 7:42 AM EDT Franki Pedroza MD 01/09/2025 11:03 PM Incision/Drainage Date/Time: 01/09/2025 7:42 AM Performed by: Richard Barrientos MD Authorized by: Franki Pedroza MD Consent: [...] Wound treatment: wound left open Packing material: 2 in iodoform gauze Patient tolerance: patient tolerated the procedure well with no immediate complications Franki Pedroza MD PROCEDURE/MINOR SURGICAL ORDER LORI Final Result * (ABNORMAL) POC Glucose Monitoring Device (01/09/2025 12:34 AM EDT) Pathologist [facility] POC Glucose Monitoring Device 113(H) 70 - 100 mg/dL 01/09/2025 12:35 AM EDT [facility] Blood 01/09/2025 12:3 4 AM EDT 01/09/2025 12:35 AM EDT Ryan Love MD POINT OF CARE TEST ORDERABLES F inal Result Performing Organization Address [facility] Co de Phone Number [facility] [address] [facility] * HCG Urine, Qualitative (12/23/2024 10:28 PM EDT) Pathologist [facility] hCG Qualitative -Clinitek Negative Negative 12/23/2024 10:42 PM EDT [facility] Urine 12/23/2024 10:2 8 PM EDT 12/23/2024 10:33 PM EDT Amisha LEWIS URINE ORDERABLES Final Result Performing Organization Address [facility] Co de Phone Number [facility] [address] [facility] * High Sensitivity Troponin (12/23/2024 10:28 PM EDT) Only the most recent of2 resultswithin the time period is included. Pathologist [facility] High Sensitivity Troponin 3 0 - 14 ng/L 12/23/2024 10:58 PM EDT [facility] Serum 12/23/2024 10:2 8 PM EDT 12/23/2024 10:33 PM EDT Amisha LEWIS LAB BLOOD ORDERABLES Final Resul t [facility] [address] * (ABNORMAL) Urinalysis, Microscopic (12/23/2024 10:28 PM EDT) RBC, UA 3 0 - 3 /HPF 12/23/2024 10:59 PM EDT [facility] WBC, UA >100(H) 0 - 5 /HPF 12/23/2024 10:59 PM EDT [facility] WBC Clumps, UA Moderate(A ) None Seen /HPF 12/23/2024 10:59 PM EDT [facility] Squam Epithel, UA 1 0 - 5 /HPF 12/23/2024 10:59 PM EDT [facility] Trans Epithel, UA 2 0 - 5 /HPF 12/23/2024 10:59 PM EDT [facility] Bacteria, UA Moderate(A ) None Seen /HPF 12/23/2024 10:59 PM EDT [facility] Hyaline Casts, UA 1 0 - 2 /LPF 12/23/2024 10:59 PM EDT [facility] Urine 12/23/2024 10:2 8 PM EDT 12/23/2024 10:35 PM EDT Amisha LEWIS URINE ORDERABLES Final Result Performing Organization Address [facility]/State/ZIP Co de Phone Number [facility] [address] * (ABNORMAL) Urinalysis-Macroscopic w/Rfx to Microsco (12/23/2024 10:28 PM EDT) Color, UA Yellow Yellow,Straw 12/23/2024 10:59 PM EDT [facility] Clarity, UA Cloudy(A) Clear 12/23/2024 10:59 PM EDT [facility] Specific Sparks, UA 1.015 1.005 - 1.035 12/23/2024 10:59 PM EDT [facility] pH, UA 6.0 5.0 - 8.0 12/23/2024 10:59 PM EDT [facility] Protein, UA Negative Negative mg/dL 12/23/2024 10:59 PM EDT [facility] Glucose, UA Negative Negative mg/dL 12/23/2024 10:59 PM EDT [facility] Ketones, UA Negative Negative mg/dL 12/23/2024 10:59 PM EDT [facility] Bilirubin, UA Negative Negative 12/23/2024 10:59 PM EDT [facility] Blood, UA Trace-intact (A) Negative 12/23/2024 10:59 PM EDT [facility] Nitrite, UA Positive(A) Negative 12/23/2024 10:59 PM EDT [facility] Urobilinogen, UA 0.2 E.U./dL 0.2 - 1.0 EU/dL 12/23/2024 10:59 PM EDT [facility] Leukocyte Esterase, UA Moderate(A) Negative 12/23/2024 10:59 PM EDT [facility] Urine 12/23/2024 10:2 8 PM EDT 12/23/2024 10:33 PM EDT Amisha LEWIS URINE ORDERABLES Final Result [facility] [address] [place] [address], [facility] * Hepatic Function Panel (12/23/2024 10:28 PM EDT) Only the most recent of2 resultswithin the time period is included. Total Bilirubin 0.5 0.0 - 1.5 mg/dL 12/23/2024 10:52 PM EDT [facility] Bilirubin, Direct 0.3 0.0 - 0.4 mg/dL 12/23/2024 10:52 PM EDT [facility] AST 18 13 - 39 U/L 12/23/2024 10:52 PM EDT [facility] ALT 17 7 - 52 U/L 12/23/2024 10:52 PM EDT [facility] Alkaline Phosphatase 47 36 - 125 U/L 12/23/2024 10:52 PM EDT [facility] Total Protein 6.9 6.4 - 8.9 g/dL 12/23/2024 10:52 PM EDT [facility] Albumin 4.0 3.5 - 5.7 g/dL 12/23/2024 10:52 PM EDT [facility] Bilirubin, Indirect 0.2 0.0 - 1.1 mg/dL 12/23/2024 10:52 PM EDT [facility] Plasma 12/23/2024 10:2 8 PM EDT 12/23/2024 10:33 PM EDT us Amisha LEWIS LAB BLOOD ORDERABLES Final Resul t [facility] [address] [facility] [place] [address], [facility] * Differential (12/23/2024 10:28 PM EDT) Only the most recent of2 resultswithin the time period is included. Neutrophils Relative 54.5 40.0 - 80.0 % 12/23/2024 10:54 PM EDT [facility] Lymphocytes Relative 31.9 15.0 - 45.0 % 12/23/2024 10:54 PM EDT [facility] Monocytes Relative 7.9 0.0 - 12.0 % 12/23/2024 10:54 PM EDT [facility] Eosinophils Relative 4.8 0.0 - 8.0 % 12/23/2024 10:54 PM EDT [facility] Basophils Relative 0.9 0.0 - 1.0 % 12/23/2024 10:54 PM EDT [facility] nRBC 0 0 - 0 /100 WBC 12/23/2024 10:54 PM EDT [facility] Neutrophils Absolute 4,197 1,520 - 8,640 /uL 12/23/2024 10:54 PM EDT [facility] Lymphocytes Absolute 2,456 570 - 4,860 /uL 12/23/2024 10:54 PM EDT [facility] Monocytes Absolute 608 0 - 1,296 /uL 12/23/2024 10:54 PM EDT [facility] Eosinophils Absolute 370 0 - 864 /uL 12/23/2024 10:54 PM EDT [facility] Basophils Absolute 69 0 - 108 /uL 12/23/2024 10:54 PM EDT [facility] Whole Blood 12/23/2024 10:2 8 PM EDT 12/23/2024 10:46 PM EDT Amisha LEWIS LAB BLOOD ORDERABLES Final Resul t [facility] [address] [facility] * (ABNORMAL) CBC (12/23/2024 10:28 PM EDT) Only the most recent of2 resultswithin the time period is included. WBC 7.7 3.8 - 10.8 10E3/uL 12/23/2024 10:54 PM EDT [facility] RBC 3.81 3.80 - 5.10 10E6/uL 12/23/2024 10:54 PM EDT [facility] Hemoglobin 12.6 11.7 - 15.5 g/dL 12/23/2024 10:54 PM EDT [facility] Hematocrit 37.3 35.0 - 45.0 % 12/23/2024 10:54 PM EDT [facility] MCV 98.1 80.0 - 100.0 fL 12/23/2024 10:54 PM EDT [facility] MCH 33.1(H) 27.0 - 33.0 pg 12/23/2024 10:54 PM EDT [facility] MCHC 33.8 32.0 - 36.0 g/dL 12/23/2024 10:54 PM EDT [facility] RDW 13.3 11.0 - 15.0 % 12/23/2024 10:54 PM EDT [facility] Platelets 247 140 - 400 10E3/uL 12/23/2024 10:54 PM EDT [facility] MPV 7.6 7.5 - 11.5 fL 12/23/2024 10:54 PM EDT [facility] Whole Blood 12/23/2024 10:2 8 PM EDT 12/23/2024 10:46 PM EDT Amisha LEWIS LAB BLOOD ORDERABLES Final Resul t [facility] [address] [facility] [place] [address], [facility] * (ABNORMAL) Basic metabolic panel (12/23/2024 10:28 PM EDT) Only the most recent of2 resultswithin the time period is included. Sodium 140 133 - 146 mmol/L 12/23/2024 10:52 PM EDT [facility] Potassium 3.8 3.5 - 5.3 mmol/L 12/23/2024 10:52 PM EDT [facility] Chloride 110 98 - 110 mmol/L 12/23/2024 10:52 PM EDT [facility] CO2 24 21 - 33 mmol/L 12/23/2024 10:52 PM EDT [facility] Anion Gap 6 3 - 16 mmol/L 12/23/2024 10:52 PM EDT [facility] BUN 6(L) 7 - 25 mg/dL 12/23/2024 10:52 PM EDT [facility] Creatinine 0.88 0.60 - 1.30 mg/dL 12/23/2024 10:52 PM EDT [facility] Glucose 124(H) 70 - 100 mg/dL 12/23/2024 10:52 PM EDT [facility] Calcium 8.7 8.6 - 10.3 mg/dL 12/23/2024 10:52 PM EDT [facility] Osmolality, Calculated 289 278 - 305 mOsm/kg 12/23/2024 10:52 PM EDT [facility] EGFR 85 12/23/2024 10:52 PM EDT [facility] Comment:As of 2021, the estimated GFR [...] LEWIS LAB BLOOD ORDERABLES Final Resul t [facility] [address] [id number], [facility] * X-ray Chest PA and Lateral (12/23/2024 [...] Valente MD at 12/23/2024 10:39 PM EDT us Amisha LEWIS IMG DIAGNOSTIC IMAGING ORDERABLE S Final Result * ED HCV Ab Reflex To HCV Quant (12/20/2024 12:56 AM EDT) HCV Ab Nonreactive Nonreactive 12/20/2024 2:07 AM EDT [facility] Comment:Health Department no tified in accordance with reportable infectious disease guidelines. HCVAB Number 0.05 0.00 - 0.79 S/CO 12/20/2024 2:07 AM EDT [facility] Serum 12/20/2024 12:5 6 AM EDT 12/20/2024 1:[address] [facility] BLOOD ORDERABLES Final Resul t Performing Organization Address [facility] de Phone Number [facility] [address] [facility] [place] [address], [facility] * BNP (12/20/2024 12:56 AM EDT) Pathologist [facility] BNP 20 0 - 100 pg/mL 12/20/2024 2:10 AM EDT [facility] Comment: BNP may be increased in the presence of sacubitril/valsartan (Entresto). Please interpret accordingly. Plasma 12/20/2024 12:5 6 AM EDT 12/20/2024 1:10 AM EDT Narrative [facility] - 12/20/2024 2:10 AM EDT The presence of high concentrations of biotin may cause falsely lowered BNP results. Biotin interference may be seen if an individual is taking >5 mg biotin per day. Interpret BNP results in the context of the patient's clinical presentation. [facility] BLOOD ORDERABLES Final Resul t Performing Organization Address [facility] de Phone Number [facility] [address] [facility] [place] [address], [facility] * ECG for indication of syncope (12/20/2024 12:50 AM EDT) 12/20/2024 12:5 0 AM EDT Narrative [facility] - 12/20/2024 8:16 AM EDT Ventricular Rate: 67 BPM Atrial Rate: 67 BPM P-R Interval: 154 ms QRS Duration: 88 ms QT: 394 ms QTc: 416 ms P Ballinger: 11 degrees R Ballinger: -4 degrees T Ballinger: -5 degrees Diagnosis Line: ^ INTERPRETATION NOT AVAILABLE--ECG READ IN ER ^ Confirmed by PHYSICIAN, ER ([id number]), proposal editor Le Simon ([id number]) on 12/20/2024 8:16:14 AM us Kathryn LEWIS ECG ORDERABLES Final Result MUSE from Last 3 Months Insurance Care Teams General Forecaster Relationship Specialty Start Date End Date Ryan Love MD [address] [place] [address] PCP - General Family Medicine 09/24/24
--- OUTSIDE RECORDS SUMMARY | 2025-02-16 15:33 | XMS_ITS | Encounter Summary ---
Author Organization [facility] Address [address] [place] [address] Care Team Providers Care Eviction Specialist Name Role Phone Ryan Love MD Primary Care Provider [phone] Source Comments This information has been disclosed [...] release of HIV test results or diagnoses. [id number] Health Encounter Details Date Type Department Care [...] on filedocumented in this encounter Care Teams Eviction Specialist Relationship Specialty Start Date End Date Ryan Love MD [address] [place] [address] [place] [address] PCP - General Family Medicine 09/24/24 documented as of this encounter
--- OUTSIDE RECORDS SUMMARY | 2025-02-16 15:33 | XMS_ITS | Encounter Summary ---
Author Organization [facility] Address [address] [place] [address] Care Team Providers Care Videotape Editor Name Role Phone Ryan Love MD Primary Care Provider [phone] Source Comments This information has been disclosed [...] release of HIV test results or diagnoses. [id number] Health Encounter Details Date Type Department Care [...] on filedocumented in this encounter Care Teams Videotape Editor Relationship Specialty Start Date End Date Ryan Lvoe MD [address] [place] [address] [place] [address] PCP - General Family Medicine 09/24/24 documented as of this encounter
--- OUTSIDE RECORDS SUMMARY | 2025-02-16 15:33 | XMS_ITS | Encounter Summary ---
Author Organization [facility] Address [address] [place] [address] Care Team Providers Care Third Officer Name Role Phone Ryan Love MD Primary Care Provider [phone] Source Comments This information has been disclosed [...] release of HIV test results or diagnoses. [id number] Health Encounter Details Date Type Department Care [...] on filedocumented in this encounter Care Teams Third Officer Relationship Specialty Start Date End Date Ryan Love MD [address] [place] [address] [place] [address] PCP - General Family Medicine 09/24/24 documented as of this encounter
[2025-02-16 17:25] LABS: Anion Gap 6.4 mEq/L (5-15); Blood Urea Nitrogen 9 mg/dl (7-17); Calcium 9.9 mg/dl (8.4-10.2); Carbon Dioxide 29 mmol/L (22.0-30.0); Chloride 104 mmol/L (98-107); Creatinine,Serum 0.60 mg/dl (0.52-1.04); Estimated Glomerular Filt Rate 110 ml/min (>60); GFR (African American) 133 ML/MIN (>60); Glucose 108 mg/dl (74-100); Potassium 3.4 mmoL/L (3.5-5.1); Sodium 136 mmol/L (136-145)
== END 2025-02-16 23:59 | disposition home or self-care (01) ==
LOC: LAB 15:28
PROVIDERS: PCP Family Medicine; Visit Provider Nurse Practitioner Family
DX: I25.10 Atherosclerotic heart disease of native coronary artery without angina pectoris (principal); J44.1 Chronic obstructive pulmonary disease with (acute) exacerbation; E78.5 Hyperlipidemia, unspecified; I51.89 Other ill-defined heart diseases; R60.9 Edema, unspecified; E66.01 Morbid (severe) obesity due to excess calories; R94.31 Abnormal electrocardiogram [ECG] [EKG]; R94.30 Abnormal result of cardiovascular function study, unspecified
CPT/HCPCS: 36415; 80048

== ENCOUNTER 2025-02-19 21:07 | Outpatient (CLI) | payer OTHER, SELFPAY ==
--- OUTSIDE RECORDS SUMMARY | 2022-06-14 07:09 | XMS_ITS | Continuity of Care Document ---
Author Organization [facility] o Address [address] [place] [address] Phone Care Team Providers Care Comsec Manager Name Role Phone Lawson PHILLIPS, Rios Unavailable Unavailabl e Advance Directives Directive Yes / No Effective Date File Name No Information Encounters Encounter Description Practice Location Reason(s) For Visit Diagnoses Date Provider Providers Copied on Encounter [facility] [place], [facility] [place], [place], [facility], tel:[phone] [address] [facility] No Information 2 Lawson [facility]. [address] [place], [place], [facility], . tel:[phone] Family History Family Member Type Diagnosis Age At Onset No Information Payers Payer name Insurance type Covered libertarian ID Authoriza tion(s) No Information Social History [...]
--- OUTSIDE RECORDS SUMMARY | 2024-12-23 21:46 | XMS_ITS | Encounter Summary ---
Author Organization [facility] Address [address] [place] [address] Care Team Providers Care Lens Blocker Name Role Phone Ryan Love MD Primary Care Provider [phone] Source Comments This information has been disclosed [...] release of HIV test results or diagnoses. [id number] Reason for Visit * Reason Comments Foot Swelling Bilateral Fall Encounter Details Date Type Department Care Team (Late st Contact Info) Description 12/23/2024 9:46 PM EDT - 12/24/2024 12:31 AM EDT Emergency [facility] Emergency Department [address] [place] [phone] Discharge Disposition: ED Dismiss - Left Before [...] 08/02/2021 01/10/20 25 naloxone (NARCAN) 4 mg/actuation [place] Insert into either nostril then completely depress [...] DEBBIE Avila - 12/24/2024 12:31 AM EDT [facility] ED Callback Note Juliana Olguin is a [...] DEBBIE Shetty - 12/23/2024 10:11 PM EDT [facility] MEDICAL SCREENING [...] Disp: , Rfl: naloxone (NARCAN) 4 mg/actuation [place], Apply 1 spray in one nostril if needed. Call 911. May repeatdose in other nostril if no response in 3 minutes., Disp: 2 each, Rfl: 1 naloxone (NARCAN) 4 mg/actuation [place], Insert into either nostril then completely depress [...] - 3 /HPF 12/23/2024 10:59 PM EDT [facility] WBC, UA >100(H) 0 - 5 /HPF 12/23/2024 10:59 PM EDT [facility] WBC Clumps, UA Moderate(A ) None Seen /HPF 12/23/2024 10:59 PM EDT [facility] Squam Epithel, UA 1 0 - 5 /HPF 12/23/2024 10:59 PM EDT [facility] Trans Epithel, UA 2 0 - 5 /HPF 12/23/2024 10:59 PM EDT [facility] Bacteria, UA Moderate(A ) None Seen /HPF 12/23/2024 10:59 PM EDT [facility] Hyaline Casts, UA 1 0 - 2 /LPF 12/23/2024 10:59 PM EDT [facility] Urine 12/23/2024 10:2 8 PM EDT 12/23/2024 10:35 PM EDT us Amisha LEWIS URINE ORDERABLES Final Result [facility] [address] [place] [address], [facility] * HCG Urine, Qualitative (12/23/2024 10:28 PM EDT) hCG Qualitative -Clinitek Negative Negative 12/23/2024 10:42 PM EDT [facility] Urine 12/23/2024 10:2 8 PM EDT 12/23/2024 10:33 PM EDT us Amisha LEWIS URINE ORDERABLES Final Result Performing Organization Address City/State/[facility] Co de Phone Number [facility] [address] [id number], [facility] * (ABNORMAL) Urinalysis-Macroscopic w/Rfx to Microsco (12/23/2024 10:28 PM EDT) Color, UA Yellow Yellow,Straw 12/23/2024 10:59 PM EDT [facility] Clarity, UA Cloudy(A) Clear 12/23/2024 10:59 PM EDT [facility] Specific [place], UA 1.015 1.005 - 1.035 12/23/2024 10:59 PM EDT [facility] pH, UA 6.0 5.0 - 8.0 12/23/2024 10:59 PM EDT [facility] Protein, UA Negative Negative mg/dL 12/23/2024 10:59 PM EDT [facility] Glucose, UA Negative Negative mg/dL 12/23/2024 10:59 PM EDT [facility] Ketones, UA Negative Negative mg/dL 12/23/2024 10:59 PM EDT [facility] Bilirubin, UA Negative Negative 12/23/2024 10:59 PM EDT [facility] Blood, UA Trace-intact (A) Negative 12/23/2024 10:59 PM EDT [facility] Nitrite, UA Positive(A) Negative 12/23/2024 10:59 PM EDT [facility] Urobilinogen, UA 0.2 E.U./dL 0.2 - 1.0 EU/dL 12/23/2024 10:59 PM EDT [facility] Leukocyte Esterase, UA Moderate(A) Negative 12/23/2024 10:59 PM EDT [facility] Urine 12/23/2024 10:2 8 PM EDT 12/23/2024 10:33 PM EDT us Amisha LEWIS URINE ORDERABLES Final Result [facility] [address] [facility]. [address] * High Sensitivity Troponin (12/23/2024 10:28 PM EDT) Pathologist [facility] High Sensitivity Troponin 3 0 - 14 ng/L 12/23/2024 10:58 PM EDT [facility] Serum 12/23/2024 10:2 8 PM EDT 12/23/2024 10:33 PM EDT us Amisha LEWIS LAB BLOOD ORDERABLES Final Resul t Performing Organization Address [facility] Co de Phone Number [facility] [address] [facility]. [address] * Hepatic Function Panel (12/23/2024 10:28 PM EDT) Pathologist [facility] Total Bilirubin 0.5 0.0 - 1.5 mg/dL 12/23/2024 10:52 PM EDT [facility] Bilirubin, Direct 0.3 0.0 - 0.4 mg/dL 12/23/2024 10:52 PM EDT [facility] AST 18 13 - 39 U/L 12/23/2024 10:52 PM EDT [facility] ALT 17 7 - 52 U/L 12/23/2024 10:52 PM EDT [facility] Alkaline Phosphatase 47 36 - 125 U/L 12/23/2024 10:52 PM EDT [facility] Total Protein 6.9 6.4 - 8.9 g/dL 12/23/2024 10:52 PM EDT [facility] Albumin 4.0 3.5 - 5.7 g/dL 12/23/2024 10:52 PM EDT [facility] Bilirubin, Indirect 0.2 0.0 - 1.1 mg/dL 12/23/2024 10:52 PM EDT [facility] Plasma 12/23/2024 10:2 8 PM EDT 12/23/2024 10:33 PM EDT us Amisha LEWIS LAB BLOOD ORDERABLES Final Resul t [facility] [address] [facility]. [address] * Differential (12/23/2024 10:28 PM EDT) Neutrophils Relative 54.5 40.0 - 80.0 % 12/23/2024 10:54 PM EDT [facility] Lymphocytes Relative 31.9 15.0 - 45.0 % 12/23/2024 10:54 PM EDT [facility] Monocytes Relative 7.9 0.0 - 12.0 % 12/23/2024 10:54 PM EDT [facility] Eosinophils Relative 4.8 0.0 - 8.0 % 12/23/2024 10:54 PM EDT [facility] Basophils Relative 0.9 0.0 - 1.0 % 12/23/2024 10:54 PM EDT [facility] nRBC 0 0 - 0 /100 WBC 12/23/2024 10:54 PM EDT [facility] Neutrophils Absolute 4,197 1,520 - 8,640 /uL 12/23/2024 10:54 PM EDT [facility] Lymphocytes Absolute 2,456 570 - 4,860 /uL 12/23/2024 10:54 PM EDT [facility] Monocytes Absolute 608 0 - 1,296 /uL 12/23/2024 10:54 PM EDT [facility] Eosinophils Absolute 370 0 - 864 /uL 12/23/2024 10:54 PM EDT [facility] Basophils Absolute 69 0 - 108 /uL 12/23/2024 10:54 PM EDT [facility] Whole Blood 12/23/2024 10:2 8 PM EDT 12/23/2024 10:46 PM EDT us Amisha LEWIS LAB BLOOD ORDERABLES Final Resul t [facility] [address] [facility]. [address] * (ABNORMAL) CBC (12/23/2024 10:28 PM EDT) WBC 7.7 3.8 - 10.8 10E3/uL 12/23/2024 10:54 PM EDT [facility] RBC 3.81 3.80 - 5.10 10E6/uL 12/23/2024 10:54 PM EDT [facility] Hemoglobin 12.6 11.7 - 15.5 g/dL 12/23/2024 10:54 PM EDT [facility] Hematocrit 37.3 35.0 - 45.0 % 12/23/2024 10:54 PM EDT [facility] MCV 98.1 80.0 - 100.0 fL 12/23/2024 10:54 PM EDT [facility] MCH 33.1(H) 27.0 - 33.0 pg 12/23/2024 10:54 PM EDT [facility] MCHC 33.8 32.0 - 36.0 g/dL 12/23/2024 10:54 PM EDT [facility] RDW 13.3 11.0 - 15.0 % 12/23/2024 10:54 PM EDT [facility] Platelets 247 140 - 400 10E3/uL 12/23/2024 10:54 PM EDT [facility] MPV 7.6 7.5 - 11.5 fL 12/23/2024 10:54 PM EDT [facility] Whole Blood 12/23/2024 10:2 8 PM EDT 12/23/2024 10:46 PM EDT us Amisha LEWIS LAB BLOOD ORDERABLES Final Resul t [facility] [address] * (ABNORMAL) Basic metabolic panel (12/23/2024 10:28 PM EDT) Sodium 140 133 - 146 mmol/L 12/23/2024 10:52 PM EDT [facility] Potassium 3.8 3.5 - 5.3 mmol/L 12/23/2024 10:52 PM EDT [facility] Chloride 110 98 - 110 mmol/L 12/23/2024 10:52 PM EDT [facility] CO2 24 21 - 33 mmol/L 12/23/2024 10:52 PM EDT [facility] Anion Gap 6 3 - 16 mmol/L 12/23/2024 10:52 PM EDT [facility] BUN 6(L) 7 - 25 mg/dL 12/23/2024 10:52 PM EDT [facility] Creatinine 0.88 0.60 - 1.30 mg/dL 12/23/2024 10:52 PM EDT [facility] Glucose 124(H) 70 - 100 mg/dL 12/23/2024 10:52 PM EDT [facility] Calcium 8.7 8.6 - 10.3 mg/dL 12/23/2024 10:52 PM EDT [facility] Osmolality, Calculated 289 278 - 305 mOsm/kg 12/23/2024 10:52 PM EDT [facility] EGFR 85 12/23/2024 10:52 PM EDT [facility] Comment:As of 2021, the estimated [...] LEWIS LAB BLOOD ORDERABLES Final Resul t [facility] [address] [place], [place] [address] * X-ray Chest PA and Lateral [...] on filedocumented in this encounter Care Teams Lens Blocker Relationship Specialty Start Date End Date Ryan Love MD [address] [place] [address] PCP - General Family Medicine 09/24/24 documented as of this encounter
--- OUTSIDE RECORDS SUMMARY | 2024-12-26 14:30 | XMS_ITS | Encounter Summary ---
Author Organization [facility] Address [address] [place] [address] Care Team Providers Care Water Pumping Station Engineer Name Role Phone Pcp, No Primary Care Provider Unavailabl e Bren Lira DMD Unavailable [phone] Eugene Holloway Unavailable Unavailabl e Reason for Visit * Consultation (Routine) - Closed Specialty Diagnoses / Procedures Referred By Octavio hicks Referred To Contact Oral Surgery Diagnoses Encounter for dental examination Garrison Rosenberg, DMD 800 [facility] [address] [place] [address] Phone: tel: fax: [facility] [address] [address] Phone: tel: fax: Referral ID Status Reason Start Date Expiration Date V isits Requested Visits Authorized [id number] Closed Specialty Services Required 09/05/2024 03/07/2026 1 1 Encounter Details Date Type Department Care Team (Late st Contact Info) Description 12/26/2024 2:30 PM EDT Evaluation [facility] [address] [phone] Akin Shay, DMD 800 [facility] [address] [place] [address] Oral mucosal lesion (Primary Dx) [...] 3:20 PM EDT documented in this encounter Miscellaneous Notes * Progress Notes - Michael Araujo DDS - 12/26/2024 2:30 PM EDT Images from the original note were not included. OMS Evaluation Appointment Subjective: Juliana Olguin is a 39 y.o. female who presents for evaluation for vestibuloplasty of the upper left, epulis fissuratum of the lower right. Patient states that she had her teeth taken out [id number]. Denies nausea, vomiting, fever, or chills. Objective: Vitals: 12/26/24 1520 BP: 109/65 Pulse: 70 Temp: 36.6 ??C (97.9 ??F) SpO2: 96% Medical History: HTN Ankle swelling Asthma Hypothyroidism ADHD Anxiety Depression Gout ROS: Relevant ROS reviewed with patient and reported negative except as mentioned above in HPI. Surgical History: Hysterectomy Gallbladder Medications: Albuterol Aspirin Clonazepam Clonidine Gabapentin Metoprolol Seroquel Allergies: Denies Social: Denies smoking Denies drinking Denies illicit drug use Physical Exam General: Well nourished, in no acute distress.? HEENT: Normocephalic, atraumatic. No facial swelling, asymmetry, or lesions. Neck is soft, supple, nontender to palpation. Intra-Oral: CYNDI 40 mm. Edentulous maxilla and mandible with appropriate ridges. Soft tissue excess and rubbing erythema of lower right vestibule anterior around frenum both lingual and buccal surface. Oral mucosa moist, intact. No intraoral lesions. No pharyngeal edema. FOM soft/nontender/non-elevated. Heart: Regular rate. Lungs: Symmetrical chest rise b/l, nonlabored respirations on room air. Neurologic: Awake, alert and oriented x3. CN V and VII intact bilaterally. Imaging: Film Ordered: Panoramic Date Ordered: 12/26/24 Radiographic Indication: Dental Evaluation Radiographic Interpretation/Findings: Condyles round, seated posterior to fossa. Sinuses clear & symmetrical bilaterally. Normal trabeculation pattern. No appreciable bony pathology. - Edentulous maxilla and mandible Assessment: Juliana Olguin is a 39 y.o. female who presents with a referral for soft tissue surgery. She may benefit from epulis fissuratum removal of the lower right under local anesthesia. Patient denies any procedures to restore teeth. Plan: -Discussed R/B/I. Opportunity was given for patient to ask questions. All questions answered to patients apparent satisfaction. -Discussed possible complications including, but not limited to, infection, bleeding, swelling, damage to adjacent structures, alveolar osteitis, nerve injury, or sinus involvement requiring secondary surgery -Schedule for anterior lower right epulis fissuratum removal local anesthesia. Michael Araujo DDS yard hostler Cosigned by Akin Shay DMD at 12/31/2024 9:14 AM EDT Associated attestation - Akin Shay DMD - 12/31/2024 9:14 AM EDT I saw and evaluated the patient, discussed with the resident, personally reviewed the images and agree with resident's findings, radiographic interpretations, and plan as documented in the note. documented in this encounter Plan of Treatment Not on file documented as of this encounter Visit Diagnoses Diagnosis Oral mucosal lesion- Primary documented in this encounter Care Teams Water Pumping Station Engineer Relationship Specialty Start Date End Date Pcp, No 800 [place] [address] PCP - General Family Medicine 09/05/24 Bren Lira DMD [address] [address] Dentist 09/18/24 Eugene Holloway Dental Student Dental Head Boys Tennis Coach 09/18/24 documented as of this encounter
--- OUTSIDE RECORDS SUMMARY | 2025-01-09 03:53 | XMS_ITS | Encounter Summary ---
Author Organization [facility] Address [address] [place] [address] Care Team Providers Care Stock Analyst Name Role Phone Ryan Love MD Primary Care Provider [phone] Source Comments This information has been disclosed [...] release of HIV test results or diagnoses. [id number] Reason for Visit * Reason Comments Abscess Encounter Details Date Type Department Care Team (Late st Contact Info) Description 01/09/2025 3:53 AM EDT - 01/09/2025 7:21 AM EDT Emergency [facility] Emergency Department [address] [place] [phone] Franki Pedroza MD [address] [facility] [address] Abscess (Primary Dx) Discharge Disposition: [...] sent through Care Everywhere. * Skin Abscess Bfiw-mo-Dqkh (Greenlandic) documented in this encounter Medications at Time [...] of this encounter Progress Notes * Franki Pedroza MD - 01/09/2025 4:43 AM EDT ED [...] from the original note were not included. [facility] ED Note Date of Service: 01/09/2025 Reason [...] Asthma Bilateral leg numbness Bipolar 2 disorder ([facility]) COPD (chronic obstructive pulmonary disease) ([facility]) Degenerative disc disease, lumbar History of pancreatitis [...] noted on sensitive skin exam with nurse mail handler. Extremities: No peripheral edema. Neuro: Alert. No [...] - 01/09/2025 7:21 AM EDTAssociated Order(s): Incision/Drainage [facility] ED Procedure Note Emergency Department Procedures Incision/Drainage [...] DEBBIE Chambers - 01/08/2025 11:50 PM EDT [facility] for Emergency Care MEDICAL SCREENING EXAM Date of Service: 01/09/2025 Reason for Visit: Abscess MSE Plan Patient evaluated from the [facility] for a medical screening exam. In short, [...] (from the past 4160 hours). Stable for [facility] while awaiting ED bed. See primary provider's [...] Asthma Bilateral leg numbness Bipolar 2 disorder ([facility]) COPD (chronic obstructive pulmonary disease) ([facility]) Degenerative disc disease, lumbar History of pancreatitis [...] Incision/Drainage Date/Time: 01/09/2025 7:42 AM Performed by: Rcihard Chan MD Authorized by: Franki Pedroza MD [...] AM EDT 01/09/2025 12:35 AM EDT Result [facility] Ryan Love MD POINT OF CARE TEST ORDERABLES F inal Result Performing Organization Address City/State/[facility] Co de Phone Number [facility] [address] documented in this encounter Visit Diagnoses [...] RN) documented in this encounter Care Teams Stock Analyst Relationship Specialty Start Date End Date Ryan Love MD [address] [place] [address] PCP - General Family Medicine 09/24/24 documented as of this encounter
--- OUTSIDE RECORDS SUMMARY | 2025-01-09 22:05 | XMS_ITS | Encounter Summary ---
Author Organization [place] [address] Care Team Providers Care Loading Checker Name Role Phone Ryan Love MD Primary Care Provider [phone] Reason for Visit * Reason Comments Wound Check Pt had a MRSA bump drained at [facility] yesterday, now the packing has fallen out, she states she is here to have it repacked. Wound is located on her right upper inner thigh. Encounter Details Date Type Department Care Team (Late Contact Info) Description 01/09/2025 10:05 PM EDT - 01/09/2025 11:01 PM EDT Emergency [facility] [address] [place] [id number] Nisa Carter MD [address] [place] [address] [place] [address] Visit for wound check (Primary [...] 10:17 PM EDT Azam Frances RN * [place] Suicide Severity Rating Scale (Q shift for [...] Means Destination Comment s Home or Self [facility] documented in this encounter ED Notes * Curtis George NP - 01/09/2025 9:49 PM EDTAssociated Order(s): Incision-Drainage Post-Procedure Diagnose(s): Abscess Images from the original note were not included. Chief Complaint Patient presents with Wound Check Pt had a MRSA bump drained at [facility] yesterday, now the packing has fallen out, she states she is here to have it repacked. Wound is located on her right upper inner thigh. Wound Check 39 y.o. y.o. with has a past medical history of Arthritis, Asthma, Bipolar 2 disorder ([facility]), COPD (chronic obstructive pulmonary disease) ([facility]), Diabetes mellitus ([facility]), and H/O degenerative disc disease. presents to ED with c/o packing falling out of an abscess. Patient had I&D at [facility] this morning. She was prescribed Bactrim and [...] nursing note reviewed. Exam conducted with a mysql dba present. Constitutional: General: She is not in [...] discussed: No treatment, alternative treatment and referral [place] protocol: Patient identity confirmed: Verbally with patient [...] contain unintended errors Curtis George NP 01/09/25 224 Cosigned by Nisa Carter MD at 01/10/2025 [...] * Incision-Drainage (01/09/2025 10:44 PM EDT) Narrative [facility] - 01/09/2025 10:44 PM EDT Nisa Catrer MD 01/10/2025 8:13 AM Incision-Drainage Date/Time: 01/09/2025 10:44 PM Performed by: Curtis George NP Authorized by: Curtis George NP Consent: Consent obtained: Verbal Consent given by: Patient Risks, benefits, and alternatives were discussed: yes Risks discussed: Bleeding, incomplete drainage, pain, damage to other organs and infection Alternatives discussed: No treatment, alternative treatment and referral [place] protocol: Patient identity confirmed: Verbally with patient Pre-procedure details: Skin preparation: Povidone-iodine Procedure details: Wound management: Irrigated with saline Packing materials: 07/19 in iodoform gauze Comments: Patient had I&D done at . Her packing fallen out. We placed packing after irrigating the wound Curtis George NP PROCEDURE/MINOR SURGICAL ORDER LORI Final Result [facility] [address] [place] [address] documented in this encounter Visit Diagnoses Diagnosis [...] 12/15 documented in this encounter Care Teams Loading Checker Relationship Specialty Start Date End Date Ryan Love MD PCP - General Family Medicine 08/14/21 documented as of this encounter
--- OUTSIDE RECORDS SUMMARY | 2025-01-15 07:30 | XMS_ITS | Encounter Summary ---
Author Organization Healthcare Address [address] [place] [address] Care Team Providers Care Pcmh Specialist Name Role Phone Pcp, No Primary Care Provider Unavailabl e Bren Lira DMD Unavailable Eugene Holloway Unavailable Unavailabl e Encounter Details Date Type Department Care Team (Latest Contact Info) Description 01/15/2025 7:30 AM EDT Office Visit [facility] h[facility] refrigeration technician [facility] [address] [place] [phone] Garrison Galindo, DMD [address] [place] [address] Oral mucosal lesion (Primary Dx) Social History [...] Patient to follow-up p.r.n. Garrison Galindo DMD [facility] sed middle school teacher PGY-1 Pager #: [phone] Cosigned by Akin Shay DMD at 01/21/2025 8:36 AM EDT Associated attestation - Akin Shay DMD - 01/21/2025 8:36 AM EDT I was present during all critical and ashton portions of the procedure(s) and immediately available [facility] services the entire duration. See resident [...] documented as of this encounter Care Teams Pcmh Specialist Relationship Specialty Start Date End Date Pcp, No [address] [place] [address] PCP - General Family Medicine 09/05/24 Bren Lira, DMD [address] [phone] Dentist 09/18/24 Eugene Holloway Dental Student Dental Inspector Eyeglass 09/18/24 documented as of this encounter
--- OUTSIDE RECORDS SUMMARY | 2025-02-19 21:10 | XMS_ITS | Encounter Summary ---
Author Organization [facility] Address [address] [place] [address] Care Team Providers Care Sketcher Name Role Phone Ryan Love MD Primary Care Provider [phone] Source Comments This information has been disclosed [...] release of HIV test results or diagnoses. [id number] Health Encounter Details Date Type Department Care [...] on filedocumented in this encounter Care Teams Sketcher Relationship Specialty Start Date End Date Ryan Love MD [address] [place] [address] [place] [address] PCP - General Family Medicine 09/24/24 documented as of this encounter
--- OUTSIDE RECORDS SUMMARY | 2025-02-19 21:10 | XMS_ITS | Encounter Summary ---
Author Organization [facility] Address [address] [place] [address] Care Team Providers Care Sugar Drier Name Role Phone Pcp, Paulina Primary Care [...] documented as of this encounter Care Teams Sugar Drier Relationship Specialty Start Date End Date Pcp, No 800 [place] [address] PCP - General Family Medicine 09/05/24 Bren Lira DMD [address] [address] Dentist 09/18/24 Eugene Holloway Dental Student Dental Thermal Engineer 09/18/24 documented as of this encounter
--- OUTSIDE RECORDS SUMMARY | 2025-02-19 21:10 | XMS_ITS | Clinical Summary ---
Author Organization [facility] Address [address] [place] [address] Care Team Providers Care System Auditor Name Role Phone Pcp, No Primary Care Provider Unavailabl e Bren Lira DMD Unavailable Eugene Holloway Unavailable Unavailabl e Allergies No known active allergies Medications HYDROcodone-acetami nophen (Dolomite) 5-325 MG tabletIndications:P ain,Back pain Take 1 [...] 01/15/2025 7:30 AM EDT Office Visit [facility] systems [facility] [address] [place] [phone] Garrison Galindo, DMD Oral mucosal lesion (Primary Dx) 01/15/2025 Travel 12/26/2024 2:30 PM EDT Evaluation [facility] [address] [place] [phone] Akni Shay, DMD Oral mucosal lesion (Primary Dx) 12/26/2024 Travel 12/26/2024 Telephone [facility] systems [facility] [address] [place] [phone] Dental, Surgeon, 12/25/2024 Telephone [facility] [address] [place] [phone] Dental, SurgeonMD from Last 3 Months [...] of 3 - 19+ 3-dose series) 2002 [id number] Vaccine (3 - 2023- season) 2024 11/24/2020, [...] Most Recently Relevant to Health Maintenance [place] [address] Care Teams System Auditor Relationship Specialty Start Date End Date Pcp, No [address] [place] [address] PCP - General Family Medicine 09/05/24 Bren Lira, DMD [address] [phone] Dentist 09/18/24 Eugene Holloway Dental Student Dental Casino Floor Person 09/18/24
--- OUTSIDE RECORDS SUMMARY | 2025-02-19 21:10 | XMS_ITS | Clinical Summary ---
Author Organization [facility] Address [address] [facility] [place] [address] Phone Care Team Providers Care Field Talent Qualification Specialist Name Role Phone Ryan Love MD Primary Care Provider [phone] Allergies Active Allergy Reactions Criticality Noted Date [...] EDT - 01/09/2025 11:01 PM EDT Emergency [facility] [place] [address] Nisa Carter MD Visit for wound check [...] 0.5 28.2 Started: 12/25/1996 Smokeless Tobacco: Never Tobacco Cessation:Ready [...] * Incision-Drainage (01/09/2025 10:44 PM EDT) Narrative [facility] - 01/09/2025 10:44 PM EDT Nisa Carter MD 01/10/2025 8:13 AM Incision-Drainage Date/Time: 01/09/2025 10:44 PM Performed by: Curtis George NP Authorized by: Curtis George NP Consent: Consent obtained: Verbal Consent given by: Patient Risks, benefits, and alternatives were discussed: yes Risks discussed: Bleeding, incomplete drainage, pain, damage to other organs and infection Alternatives discussed: No treatment, alternative treatment and referral Spencer protocol: Patient identity confirmed: Verbally with patient Pre-procedure details: Skin preparation: Povidone-iodine Procedure details: Wound management: Irrigated with saline Packing materials: 07/19 in iodoform gauze Comments: Patient had I&D done at . Her packing fallen out. We placed packing after irrigating the wound Curtis George NP PROCEDURE/MINOR SURGICAL ORDER LORI Final Result Performing Organization Address City/State/[facility] Co de Phone Number [facility] [address] [place] [address] from Last 3 Months Insurance CHOICE PLUS [id number] Advance Directives For more information, please contact: [phone] * Full Code (Latest Code Status on File) Date Activated Date Inactivated Comments 08/14/2021 11:15 PM 08/17/2021 5:25 PM Care Teams Field Talent Qualification Specialist Relationship Specialty Start Date End Date Ryan Love MD PCP - General Family Medicine 08/14/21
--- OUTSIDE RECORDS SUMMARY | 2025-02-19 21:10 | XMS_ITS | Encounter Summary ---
Author Organization [facility] [place] [address] Care Team Providers Care Mortgage Protection Sales Name Role Phone Ryan Love MD Primary Care Provider Encounter Details Date Type Department Care Team [...] 10:17 PM EDT Azam Frances RN * [place] Suicide Severity Rating Scale (Q shift for [...] on filedocumented in this encounter Care Teams Mortgage Protection Sales Relationship Specialty Start Date End Date Ryan Love MD PCP - General Family Medicine 08/14/21 documented as of this encounter
--- OUTSIDE RECORDS SUMMARY | 2025-02-19 21:10 | XMS_ITS | Encounter Summary ---
Author Organization [facility] Address [address] [place] [address] Care Team Providers Care Factory Superintendent Name Role Phone Pcp, No Primary Care Provider Unavailabl e Bren Lira DMD Unavailable Eugene Holloway Unavailable Unavailabl e Reason for Referral * Consultation (Routine) - Authorized Specialty Diagnoses / Procedures Referred By Octavio t Referred To Contact Neurosurgery Diagnoses Thoracic, thoracolumbar and lumbosacral intervertebral disc disorder Ryan Love MD [address] [place] [address] Phone: tel: fax: Referral ID Status Reason Start Date Expiration Date Visits Requested Visits Authorized [id number] Authorized Specialty Services Required 02/04/2024 08/05/2025 1 1 Encounter Details Date Type Department Care Team (Latest Contact Info) Description 02/04/2024 Community [facility] [address] [place] [address] Ryan Love MD [address] [place] [address] Thoracic, thoracolumbar and lumbosacral intervertebral disc disorder [...] Primary documented in this encounter Care Teams Factory Superintendent Relationship Specialty Start Date End Date Pcp, No 800 [place] [address] PCP - General Family Medicine 09/05/24 Bren Lira, DMD [address] [phone] Dentist 09/18/24 Eugene Holloway Dental Student Dental Cleaner Furniture 09/18/24 documented as of this encounter
--- OUTSIDE RECORDS SUMMARY | 2025-02-19 21:11 | XMS_ITS | Encounter Summary ---
Author Organization [facility] Address [address] [place] [address] Care Team Providers Care Lawn Mower Mechanic Name Role Phone Pcp, No Primary Care Provider Unavailabl e Bren Lira DMD Unavailable Eugene Holloway Unavailable Unavailabl e Encounter Details Date Type Department Care Team (Late st Contact Info) Description 12/25/2024 Telephone [facility] [address] [place] [phone] Dental, Surgeon, [address] [place], [place] [phone] Social History Tobacco Use Types Packs/Day Years [...] on filedocumented in this encounter Care Teams Lawn Mower Mechanic Relationship Specialty Start Date End Date Pcp, [place] [address] [place] [address] PCP - General Family Medicine 09/05/24 Bren Lira, DMD [address] [phone] Dentist 09/18/24 Eugene Holloway Dental Student Dental Weather Reporter 09/18/24 documented as of this encounter
--- OUTSIDE RECORDS SUMMARY | 2025-02-19 21:11 | XMS_ITS | Encounter Summary ---
Author Organization [facility] Address [address] [place] [address] Care Team Providers Care Supervisor Grove Name Role Phone Pcp, No Primary Care Provider Unavailabl e Bren Lira DMD Unavailable Eugene Holloway Unavailable Unavailabl e Encounter Details Date Type Department Care Team (Late st Contact Info) Description 12/26/2024 Telephone [facility] warehouse packaging supervisor Clinic [address] [phone] Dental, Surgeon, [address] [place], [place] [phone] Social History Tobacco Use Types Packs/Day Years [...] on filedocumented in this encounter Care Teams Supervisor Grove Relationship Specialty Start Date End Date Pcp, No 800 [place] [address] PCP - General Family Medicine 09/05/24 Bren Lira, DASHAWN [address] [phone] Dentist 09/18/24 Eugene Holloway Dental Student Dental Sales Service Route Manager 09/18/24 documented as of this encounter
--- OUTSIDE RECORDS SUMMARY | 2025-02-19 21:11 | XMS_ITS | Encounter Summary ---
Author Organization [facility] Address [address] [place] [address] Care Team Providers Care Voice Coach Name Role Phone Ryan Love MD Primary Care Provider [phone] Source Comments This information has been disclosed [...] release of HIV test results or diagnoses. [id number] Health Encounter Details Date Type Department Care [...] on filedocumented in this encounter Care Teams Voice Coach Relationship Specialty Start Date End Date Ryan Love MD [address] [place] [address] [place] [address] PCP - General Family Medicine 09/24/24 documented as of this encounter
--- OUTSIDE RECORDS SUMMARY | 2025-02-19 21:11 | XMS_ITS | Encounter Summary ---
Author Organization [facility] Address [address] [place] [address] Care Team Providers Care Resource Paraprofessional Name Role Phone Pcp, No Primary Care [...] on filedocumented in this encounter Care Teams Resource Paraprofessional Relationship Specialty Start Date End Date Pcp, No 800 [place] [address] PCP - General Family Medicine 09/05/24 Bren Lira DMD [address] [phone] Dentist 09/18/24 Eugene Holloway Dental Student Dental Pottery Striper 09/18/24 documented as of this encounter
--- OUTSIDE RECORDS SUMMARY | 2025-02-19 21:11 | XMS_ITS | Clinical Summary ---
Author Organization [facility] Address [address] [place] [address] Care Team Providers Care Criminology Teacher Name Role Phone Ryan Love MD Primary Care Provider [phone] Source Comments This information has been disclosed [...] therelease of HIV test results or diagnoses. [id number] Health Allergies Active Allergy Reactions Criticality Noted [...] EDT - 01/09/2025 7:21 AM EDT Emergency [facility] Emergency Department [address] [place] [phone] Franki Pedroza MD Abscess (Primary Dx) Discharge Disposition: Home or Self Care WITHOUT Home Care Services 01/08/2025 Travel 12/23/2024 9:46 PM EDT - 12/24/2024 12:31 AM EDT Emergency [facility] Emergency Department [address] [facility] [place] [address] Discharge Disposition: ED Dismiss - Left Before Treatment 12/23/2024 Travel 12/20/2024 Travel 12/19/2024 11:59 PM EDT - 12/20/2024 2:59 AM EDT Emergency [facility] Emergency Department [address] [place] [address] Discharge Disposition: ED Dismiss - Left Before [...] procedure well with no immediate complications Franki Pedroaz MD PROCEDURE/MINOR SURGICAL ORDER LORI Final Result * (ABNORMAL) POC Glucose Monitoring Device (01/09/2025 12:34 AM EDT) Pathologist [facility] POC Glucose Monitoring Device 113(H) 70 - 100 mg/dL 01/09/2025 12:35 AM EDT [facility] Blood 01/09/2025 12:3 4 AM EDT 01/09/2025 12:35 AM EDT Ryan Love MD POINT OF CARE TEST ORDERABLES F inal Result Performing Organization Address [facility] Co de Phone Number [facility] [address] [facility] * HCG Urine, Qualitative (12/23/2024 10:28 PM EDT) Pathologist [facility] hCG Qualitative -Clinitek Negative Negative 12/23/2024 10:42 PM EDT [facility] Urine 12/23/2024 10:2 8 PM EDT 12/23/2024 10:33 PM EDT Amisha LEWIS URINE ORDERABLES Final Result Performing Organization Address [facility] Co de Phone Number [facility] [address] [facility]. [address] * High Sensitivity Troponin (12/23/2024 10:28 PM EDT) Only the most recent of2 resultswithin the time period is included. Pathologist [facility] High Sensitivity Troponin 3 0 - 14 ng/L 12/23/2024 10:58 PM EDT [facility] Serum 12/23/2024 10:2 8 PM EDT 12/23/2024 10:33 PM EDT Amisha LEWIS LAB BLOOD ORDERABLES Final Resul t [facility] [address] * (ABNORMAL) Urinalysis, Microscopic (12/23/2024 10:28 PM EDT) RBC, UA 3 0 - 3 /HPF 12/23/2024 10:59 PM EDT [facility] WBC, UA >100(H) 0 - 5 /HPF 12/23/2024 10:59 PM EDT [facility] WBC Clumps, UA Moderate(A ) None Seen /HPF 12/23/2024 10:59 PM EDT [facility] Squam Epithel, UA 1 0 - 5 /HPF 12/23/2024 10:59 PM EDT [facility] Trans Epithel, UA 2 0 - 5 /HPF 12/23/2024 10:59 PM EDT [facility] Bacteria, UA Moderate(A ) None Seen /HPF 12/23/2024 10:59 PM EDT [facility] Hyaline Casts, UA 1 0 - 2 /LPF 12/23/2024 10:59 PM EDT [facility] Urine 12/23/2024 10:2 8 PM EDT 12/23/2024 10:35 PM EDT Amisha LEWIS URINE ORDERABLES Final Result Performing Organization Address [facility]/State/ZIP Co de Phone Number [facility] [address] * (ABNORMAL) Urinalysis-Macroscopic w/Rfx to Microsco (12/23/2024 10:28 PM EDT) Color, UA Yellow Yellow,Straw 12/23/2024 10:59 PM EDT [facility] Clarity, UA Cloudy(A) Clear 12/23/2024 10:59 PM EDT [facility] Specific Geyser, UA 1.015 1.005 - 1.035 12/23/2024 10:59 PM EDT [facility] pH, UA 6.0 5.0 - 8.0 12/23/2024 10:59 PM EDT [facility] Protein, UA Negative Negative mg/dL 12/23/2024 10:59 PM EDT [facility] Glucose, UA Negative Negative mg/dL 12/23/2024 10:59 PM EDT [facility] Ketones, UA Negative Negative mg/dL 12/23/2024 10:59 PM EDT [facility] Bilirubin, UA Negative Negative 12/23/2024 10:59 PM EDT [facility] Blood, UA Trace-intact (A) Negative 12/23/2024 10:59 PM EDT [facility] Nitrite, UA Positive(A) Negative 12/23/2024 10:59 PM EDT [facility] Urobilinogen, UA 0.2 E.U./dL 0.2 - 1.0 EU/dL 12/23/2024 10:59 PM EDT [facility] Leukocyte Esterase, UA Moderate(A) Negative 12/23/2024 10:59 PM EDT [facility] Urine 12/23/2024 10:2 8 PM EDT 12/23/2024 10:33 PM EDT Amisha LEWIS URINE ORDERABLES Final Result [facility] [address] [place] [address], [facility] * Hepatic Function Panel (12/23/2024 10:28 PM EDT) Only the most recent of2 resultswithin the time period is included. Total Bilirubin 0.5 0.0 - 1.5 mg/dL 12/23/2024 10:52 PM EDT [facility] Bilirubin, Direct 0.3 0.0 - 0.4 mg/dL 12/23/2024 10:52 PM EDT [facility] AST 18 13 - 39 U/L 12/23/2024 10:52 PM EDT [facility] ALT 17 7 - 52 U/L 12/23/2024 10:52 PM EDT [facility] Alkaline Phosphatase 47 36 - 125 U/L 12/23/2024 10:52 PM EDT [facility] Total Protein 6.9 6.4 - 8.9 g/dL 12/23/2024 10:52 PM EDT [facility] Albumin 4.0 3.5 - 5.7 g/dL 12/23/2024 10:52 PM EDT [facility] Bilirubin, Indirect 0.2 0.0 - 1.1 mg/dL 12/23/2024 10:52 PM EDT [facility] Plasma 12/23/2024 10:2 8 PM EDT 12/23/2024 10:33 PM EDT us Amisha LEWIS LAB BLOOD ORDERABLES Final Resul t [facility] [address] [facility] [place] [address], [facility] * Differential (12/23/2024 10:28 PM EDT) Only the most recent of2 resultswithin the time period is included. Neutrophils Relative 54.5 40.0 - 80.0 % 12/23/2024 10:54 PM EDT [facility] Lymphocytes Relative 31.9 15.0 - 45.0 % 12/23/2024 10:54 PM EDT [facility] Monocytes Relative 7.9 0.0 - 12.0 % 12/23/2024 10:54 PM EDT [facility] Eosinophils Relative 4.8 0.0 - 8.0 % 12/23/2024 10:54 PM EDT [facility] Basophils Relative 0.9 0.0 - 1.0 % 12/23/2024 10:54 PM EDT [facility] nRBC 0 0 - 0 /100 WBC 12/23/2024 10:54 PM EDT [facility] Neutrophils Absolute 4,197 1,520 - 8,640 /uL 12/23/2024 10:54 PM EDT [facility] Lymphocytes Absolute 2,456 570 - 4,860 /uL 12/23/2024 10:54 PM EDT [facility] Monocytes Absolute 608 0 - 1,296 /uL 12/23/2024 10:54 PM EDT [facility] Eosinophils Absolute 370 0 - 864 /uL 12/23/2024 10:54 PM EDT [facility] Basophils Absolute 69 0 - 108 /uL 12/23/2024 10:54 PM EDT [facility] Whole Blood 12/23/2024 10:2 8 PM EDT 12/23/2024 10:46 PM EDT Amisha LEWIS LAB BLOOD ORDERABLES Final Resul t [facility] [address] [facility] * (ABNORMAL) CBC (12/23/2024 10:28 PM EDT) Only the most recent of2 resultswithin the time period is included. WBC 7.7 3.8 - 10.8 10E3/uL 12/23/2024 10:54 PM EDT [facility] RBC 3.81 3.80 - 5.10 10E6/uL 12/23/2024 10:54 PM EDT [facility] Hemoglobin 12.6 11.7 - 15.5 g/dL 12/23/2024 10:54 PM EDT [facility] Hematocrit 37.3 35.0 - 45.0 % 12/23/2024 10:54 PM EDT [facility] MCV 98.1 80.0 - 100.0 fL 12/23/2024 10:54 PM EDT [facility] MCH 33.1(H) 27.0 - 33.0 pg 12/23/2024 10:54 PM EDT [facility] MCHC 33.8 32.0 - 36.0 g/dL 12/23/2024 10:54 PM EDT [facility] RDW 13.3 11.0 - 15.0 % 12/23/2024 10:54 PM EDT [facility] Platelets 247 140 - 400 10E3/uL 12/23/2024 10:54 PM EDT [facility] MPV 7.6 7.5 - 11.5 fL 12/23/2024 10:54 PM EDT [facility] Whole Blood 12/23/2024 10:2 8 PM EDT 12/23/2024 10:46 PM EDT Amisha LEWIS LAB BLOOD ORDERABLES Final Resul t [facility] [address] [facility] [place] [address], [facility] * (ABNORMAL) Basic metabolic panel (12/23/2024 10:28 [...] - 16 mmol/L 12/23/2024 10:52 PM EDT [facility] BUN 6(L) 7 - 25 mg/dL 12/23/2024 10:52 PM EDT [facility] Creatinine 0.88 0.60 - 1.30 mg/dL 12/23/2024 10:52 PM EDT [facility] Glucose 124(H) 70 - [...] LEWIS LAB BLOOD ORDERABLES Final Resul t [facility] [address] [place] [address], [facility] * X-ray Chest PA and Lateral [...] Ab Nonreactive Nonreactive 12/20/2024 2:07 AM EDT [facility] Comment:Health Department no tified in accordance with reportable infectious disease guidelines. HCVAB Number 0.05 0.00 - 0.79 S/CO 12/20/2024 2:07 AM EDT [facility] Serum 12/20/2024 12:5 6 AM EDT 12/20/2024 1:08 AM EDT [facility] [place] [facility] BLOOD ORDERABLES Final Resul t Performing Organization Address [facility] de Phone Number [facility] [address] [facility] [place] [address], [facility] * BNP (12/20/2024 12:56 AM EDT) Pathologist [facility] BNP 20 0 - 100 pg/mL 12/20/2024 2:10 AM EDT [facility] Comment: BNP may be increased in the presence of sacubitril/valsartan (Entresto). Please interpret accordingly. Plasma 12/20/2024 12:5 6 AM EDT 12/20/2024 1:10 AM EDT Narrative [facility] - 12/20/2024 2:10 AM EDT The presence of high concentrations of biotin may cause falsely lowered BNP results. Biotin interference may be seen if an individual is taking >5 mg biotin per day. Interpret BNP results in the context of the patient's clinical presentation. [facility] BLOOD ORDERABLES Final Resul t Performing Organization Address [facility] de Phone Number [facility] [address] [place] [place] [address], [facility] * ECG for indication of syncope (12/20/2024 12:50 AM EDT) 12/20/2024 12:5 0 AM EDT Narrative MUSE - 12/20/2024 8:16 AM EDT Ventricular Rate: 67 BPM Atrial Rate: 67 BPM P-R Interval: 154 ms QRS Duration: 88 ms QT: 394 ms QTc: 416 ms P Henrietta: 11 degrees R Henrietta: -4 degrees T Henrietta: -5 degrees Diagnosis Line: ^ INTERPRETATION NOT AVAILABLE--ECG READ IN ER ^ Confirmed by PHYSICIAN, ER ([id number]), editor city [place] ([id number]) on 12/20/2024 8:16:14 AM us Kathryn LEWIS ECG ORDERABLES Final Result MUSE from Last 3 Months Insurance Member Subscriber Plan / Payer (Ef fective 2024-Present) Name:Juliana Rossi Relation to Subscriber:Spouse Name:MAGDIEL ROSSI Date of :1977 (Home) Address: [address] [place] [address] Payer ID:[id number] (NAIC) Type:O Address: [facility] [id number] [place] [address] Care Teams Criminology Teacher Relationship Specialty Start Date End Date Ryan Love MD [address] [place] [address] PCP - General Family Medicine 09/24/24
[2025-02-19 21:26] LABS: Hematocrit 38.5 % (37.0-47.0); Hemoglobin 12.7 g/dL (12.2-16.2); Immature Granulocytes % 0.1 %; Mean Corpuscular HGB Conc 33.0 g/dL (31.8-35.4); Mean Corpuscular Hemoglobin 33.0 pg (27.0-31.2); Mean Corpuscular Volume 100.0 fl (81-99); Nucleated Red Blood Cells % 0 %; Platelet Count 255 K/mm3 (142-424); Red Blood Count 3.85 M/mm3 (4.20-5.40); Red Cell Distribution Width-SD 45.5 fL; White Blood Count 6.9 K/mm3 (4.8-10.8)
[2025-02-19 21:50] LABS: Albumin Level 4.5 g/dl (3.5-5.0); Chloride 97 mmol/L (98-107); Potassium 3.1 mmoL/L (3.5-5.1); Sodium 134 mmol/L (136-145)
[2025-02-19 21:52] LABS: Blood Urea Nitrogen 17 mg/dl (7-17); Creatinine,Serum 0.90 mg/dl (0.52-1.04); Estimated Glomerular Filt Rate 69 ml/min (>60); GFR (African American) 83 ML/MIN (>60)
[2025-02-19 21:53] LABS: Alanine Aminotransferase 23 U/L (12-78); Alkaline Phosphatase 75 U/L (38-126); Anion Gap 12.1 mEq/L (5-15); Aspartate Amino Transferase 29 U/L (14-36); Bilirubin,Direct 0.3 mg/dl (0.0-0.4); Bilirubin,Indirect 0.3 mg/dL (0.0-0.9); Bilirubin,Total 0.6 mg/dl (0.2-1.3); Bilirubin,Unconjugated 0.3 mg/dL (0.0-1.1); Calcium 9.4 mg/dl (8.4-10.2); Carbon Dioxide 28 mmol/L (22.0-30.0); Cholesterol 167 mg/dl (140-200); Glucose 221 mg/dl (74-100); HDL Cholesterol 60 mg/dl (40-60); Magnesium 1.5 mg/dl (1.6-2.3); Total Protein,Serum 7.4 g/dl (6.3-8.2); Triglycerides 159 mg/dl (30-150)
[2025-02-19 22:11] LABS: Free T4 (Free Thyroxine) 1.65 ng/dl (0.78-2.19)
[2025-02-19 22:25] LABS: Thyroid Stimulating Hormone 0.59 uIU/mL (0.465-4.68)
== END 2025-02-19 23:59 | disposition home or self-care (01) ==
LOC: LAB.DROPOF 21:08
PROVIDERS: PCP Nurse Practitioner; Visit Provider Nurse Practitioner
DX: I25.10 Atherosclerotic heart disease of native coronary artery without angina pectoris (principal); E78.5 Hyperlipidemia, unspecified; R53.83 Other fatigue; E66.01 Morbid (severe) obesity due to excess calories; R42 Dizziness and giddiness; R94.30 Abnormal result of cardiovascular function study, unspecified; I51.89 Other ill-defined heart diseases; R60.9 Edema, unspecified
CPT/HCPCS: 80048; 80061; 80076; 83735; 84439; 84443; 85025

== ENCOUNTER 2025-03-03 08:42 | Outpatient (CLI) | payer OTHER, SELFPAY ==
--- OUTSIDE RECORDS SUMMARY | 2025-01-09 03:53 | XMS_ITS | Encounter Summary ---
Author Organization [facility] Address [address] [place] [address] Care Team Providers Care Gear Repair Supervisor Name Role Phone Ryan Love MD Primary Care Provider [phone] Source Comments This information has been disclosed [...] release of HIV test results or diagnoses. [id number] Reason for Visit * Reason Comments Abscess Encounter Details Date Type Department Care Team (Late st Contact Info) Description 01/09/2025 3:53 AM EDT - 01/09/2025 7:21 AM EDT Emergency [facility] Emergency Department [address] [place] [phone] Franki Pedroza MD [address] [facility] [address] Abscess (Primary Dx) Discharge Disposition: [...] sent through Care Everywhere. * Skin Abscess Yakh-pu-Hyar (Austrian) documented in this encounter Medications at Time [...] from the original note were not included. [facility] ED Note Date of Service: 01/09/2025 Reason [...] numbness Bipolar 2 disorder ([facility]) COPD (chronic obstructive pulmonary disease) ([facility]) Degenerative disc disease, lumbar History of pancreatitis [...] noted on sensitive skin exam with nurse steak tenderizer machine. Extremities: No peripheral edema. Neuro: Alert. No [...] - 01/09/2025 7:21 AM EDTAssociated Order(s): Incision/Drainage [facility] ED Procedure Note Emergency Department Procedures Incision/Drainage [...] DEBBIE Chambers - 01/08/2025 11:50 PM EDT [facility] for Emergency Care MEDICAL SCREENING EXAM Date of Service: 01/09/2025 Reason for Visit: Abscess MSE Plan Patient evaluated from the [facility] for a medical screening exam. In [...] (from the past 4160 hours). Stable for [facility] while awaiting ED bed. See primary [...] numbness Bipolar 2 disorder ([facility]) COPD (chronic obstructive pulmonary disease) ([facility]) Degenerative disc disease, lumbar History of pancreatitis [...] AM EDT 01/09/2025 12:35 AM EDT Result [facility] Ryan Love MD POINT OF CARE TEST ORDERABLES F inal Result Performing Organization Address City/State/[facility] Co de Phone Number [facility] [address] documented in this encounter Visit Diagnoses [...] RN) documented in this encounter Care Teams Gear Repair Supervisor Relationship Specialty Start Date End Date Ryan Love MD [address] [place] [address] PCP - General Family Medicine 09/24/24 documented as of this encounter
--- OUTSIDE RECORDS SUMMARY | 2025-01-09 22:05 | XMS_ITS | Encounter Summary ---
Author Organization [place] [address] Care Team Providers Care Transit Vehicle Inspector Name Role Phone Ryan Love MD Primary Care Provider [phone] Reason for Visit * Reason Comments Wound Check Pt had a MRSA bump drained at [facility] yesterday, now the packing has fallen out, she states she is here to have it repacked. Wound is located on her right upper inner thigh. Encounter Details Date Type Department Care Team (Late Contact Info) Description 01/09/2025 10:05 PM EDT - 01/09/2025 11:01 PM EDT Emergency [place] [facility] [place] [address] Nisa Carter MD [address] [place] [address] [place] [address] Visit for wound check (Primary Dx); Abscess; Yeast vaginitis Discharge Disposition: Home or Self Care Social History Tobacco Use Types Packs/Day Years Used Date Smoking Tobacco: Every Day Cigarettes 0.5 28.2 Started: 12/25/1996 Smokeless Tobacco: Never Alcohol Use Standard Drinks/Week Comments Yes 0 (1 standard drink = 0.6 oz pur e alcohol) occ Overall Financial Resource Strain (CARDIA) Sixt[place] r Date Recorded How hard is it [...] Sign Reading Time Taken Comments Blood Pressure 115/54 01/09/2025 10:04 PM EDT Pulse 79 01/09/2025 10:04 PM EDT Temperature 36.7 C (98.1 F) 01/09/2025 10:04 PM EDT Respiratory Rate 16 01/09/2025 10:0 4 PM EDT Oxygen Saturation 99% 01/09/2025 10: 04 PM EDT Inhaled Oxygen Concentration - - Weight 142.6 kg (314 lb 6.4 oz) 025 10:04 PM EDT Height 180.3 cm (5' 11 ) 01/09/2025 10: 04 PM EDT Body Mass Index 43.85 01/09/2025 10:04 PM EDT documented in this encounter Functional Status * Is the person deaf or does he/she have serious difficulty hearing? Answer Date of Assessment Author No 08/17/2021 12:27 PM Selwyn Welsh RN * Is the person blind or does he/she have serious difficulty seeing even when wearing glasses? Answer Date of Assessment Author No 08/17/2021 12:27 PM Selwyn Welsh RN * Does this person have serious difficulty walking or climbing stairs? Answer Date of Assessment Author No 08/17/2021 12:27 PM Selwyn Welsh RN * Does this person have difficulty dressing or bathing? Answer Date of Assessment Author No 08/17/2021 12:27 PM Selwyn Welsh RN * Because of a physical, mental or emotional condition, does this person have difficulty doing errands alone such as visiting a doctor's office or shopping? Answer Date of Assessment Author No 08/17/2021 12:27 PM Selwyn Welsh RN * Suicide Severity Rating Answer Date of Assessment Author No Risk 01/09/2025 10:17 PM EDT Azam Frances RN * [place] Suicide Severity Rating Scale (Q shift for moderate and high) Question Answer Date of Assessment Author 1. In the past month, have y ou wished you were or wished you could go to sleep and not wake up? 0 01/09/2025 10:17 PM EDT Bren Tobin RN 2. In the past month, have y ou actually had any thoughts of killing yourself? (If no, skip to question 6) 0 01/09/2025 10:17 PM EDT Bren Frances R N 6. Have you ever done anythi ng, started to do anything, or prepared to do anything to end your life? 0 01/09/2025 10:17 PM EDT Bren Wong RN documented as of this encounter Mental Status * Because of a physical, mental or emotional condition, does this person have serious difficulty concentrating, remembering or making decisions? Answer Entry Date Author No 08/17/2021 12:27 PM Selwyn Welsh RN documented in this encounter Discharge Instructions * Discharge Instructions* Curtis George NP - 01/09/2025 10:44 PM EDT Please take antibiotics as prescribed by . Return to ED if any worsening signs of infection as discussed documented in this encounter Medications at Time of Discharge clonazePAM (KLONOPIN) 0.5 mg Oral Tablet Take 0.5 mg by mouth 2 times daily. cyclobenzaprine (FLEXERIL) 10 mg Oral TabletIndications: muscle spasm Take 10 mg by mouth 3 times daily. Indications: muscle spasm 01/24/2021 norgestimate-ethin yl estradioL (ORTHO-CYCLEN) 0.25-35 mg-mcg Oral TabletIndications: abnormal uterine bleeding Take 1 Tablet by mouth daily. Indications: abnormal bleeding from the uterus OXcarbazepine (TRILEPTAL) 300 mg Oral TabletIndications: mood stablization Take 300 mg by mouth 2 times daily. Indications: mood stablization oxyCODONE (ROXICODONE) 5 mg Oral Tablet Take by mouth 2 times daily. traMADoL (ULTRAM) 50 mg Oral TabletIndications: Lumbar radiculopathy Take 1 tablet by mouth every 6 hours as needed [PRN] 15 Tablet 03/14/2021 VENTOLIN HFA 90 mcg/actuation Inhl HFA Aerosol Inhaler 11/23/2020 zolpidem (AMBIEN) 10 mg Oral Tablet Take by mouth nightly. documented as of this encounter Discharge Disposition Disposition Code Departure Means Destination Comment s Home or Self [facility]dc documented in this encounter ED Notes * Curtis George NP - 01/09/2025 9:49 PM EDTAssociated Order(s): Incision-Drainage Post-Procedure Diagnose(s): Abscess Images from the original note were not included. Chief Complaint Patient presents with Wound Check Pt had a MRSA bump drained at [facility] yesterday, now the packing has fallen out, she states she is here to have it repacked. Wound is located on her right upper inner thigh. Wound Check 39 y.o. y.o. with has a past medical history of Arthritis, Asthma, Bipolar 2 disorder ([facility]), COPD (chronic obstructive pulmonary disease) ([facility]), Diabetes mellitus ([facility]), and H/O degenerative disc disease. presents to ED with c/o packing falling out of an abscess. Patient had I&D at [facility] this morning. She was prescribed Bactrim and Keflex. Unfortunate home today the packing fell out. She also has a vaginal yeast infection but has been unable to afford the Diflucan which was sent inby her PCP. Denies any fevers or chills. No nausea or vomiting. Nothing makes symptoms better or worse. The infection does not appear to be spreading to her. Seen with my attending NISA Ty Patient History Allergies Allergen Reactions Avelox [Moxifloxacin] Home Medications: Prior to Admission medications Medication Sig Start Date End Date Last Dose Authorizing Provider clonazePAM (KLONOPIN) 0.5 mg Oral Tablet Take 0.5 mg by mouth 2 times daily. Provider, Historical cyclobenzaprine (FLEXERIL) 10 mg Oral Tablet Take 10 mg by mouth 3 times daily. Indications: musclespasm 01/24/21 Provider, Historical norgestimate-ethinyl estradioL (ORTHO-CYCLEN) 0.25-35 mg-mcg Oral Tablet Take 1 Tablet by mouth daily. Indications: abnormal bleeding from the uterus Patient not taking: Reported on 01/09/2022 Provider, Historical OXcarbazepine (TRILEPTAL) 300 mg Oral Tablet Take 300 mg by mouth 2 times daily. Indications: mood stablization Provider, Historical oxyCODONE (ROXICODONE) 5 mg Oral Tablet Take by mouth 2 times daily. Provider, Historical traMADoL (ULTRAM) 50 mg Oral Tablet Take 1 tablet by mouth every 6 hours as needed [PRN] Patient not taking: No sig reported 03/14/21 Nba Bañuelos MD VENTOLIN HFA 90 mcg/actuation Inhl HFA Aerosol Inhaler 11/23/20 Provider, Historical zolpidem (AMBIEN) 10 mg Oral Tablet Take by mouth nightly. Provider, Historical Past Medical History: Past Medical History: Diagnosis Date Arthritis Asthma Bipolar 2 disorder (HCC) COPD (chronic obstructive pulmonary disease) (HCC) Diabetes mellitus (HCC) H/O degenerative disc disease Social History: reports that she has been smoking cigarettes. She started smoking about 28 years ago. She has a 14 pack-year smoking history. She has never used smokeless tobacco. She reports currentalcohol use. She reports that she does not use drugs. E-Cigarettes (such as Vapes or Juul) E-Cigarette Use Never Assessed Family History: No family history on file. Surgical History: Past Surgical History: Procedure Laterality Date YOANDY-EN-Y GASTRIC BYPASS 2017 Review of Systems Physical Exam Blood pressure 115/54, pulse 79, temperature 98.1 ??F (36.7 ??C), temperature source Oral, resp. rate 16, height 5' 11 (1.803 m), weight (!) 314 lb 6.4 oz (142.6 kg), last menstrual period 09/13/2011, SpO2 99%, not currently . Physical Exam Vitals and nursing note reviewed. Exam conducted with a pumper helper present. Constitutional: General: She is not in acute distress. Appearance: She is well-developed. She is obese. HENT: Right Ear: External ear normal. Left Ear: External ear normal. Eyes: Conjunctiva/sclera: Conjunctivae normal. Pupils: Pupils are equal, round, and reactive to light. Cardiovascular: Rate and Rhythm: Normal rate and regular rhythm. Pulmonary: Effort: Pulmonary effort is normal. Breath sounds: Normal breath sounds. Genitourinary: Comments: The patient has roughly 5 cm of induration surrounding the wound. There is no active drainage. Musculoskeletal: Cervical back: Normal range of motion and neck supple. Comments: Tenderness in the right lateral malleolus with moderate swelling. Lymphadenopathy: Cervical: No cervical adenopathy. Skin: General: Skin is warm and dry. Capillary Refill: Capillary refill takes less than 2 seconds. Findings: No rash. Comments: Abrasion to the left knee and left childress Neurological: Mental Status: She is alert and oriented to person, place, and time. Incision-Drainage Date/Time: 01/09/2025 10:44 PM Performed by: Curtis George NP Authorized by: Curtis George NP Consent: Consent obtained: Verbal Consent given by: Patient Risks, benefits, and alternatives were discussed: yes Risks discussed: Bleeding, incomplete drainage, pain, damage to other organs and infection Alternatives discussed: No treatment, alternative treatment and referral [place] protocol: Patient identity confirmed: Verbally with patient Pre-procedure details: Skin preparation: Povidone-iodine Procedure details: Wound management: Irrigated with saline Packing materials: / in iodoform gauze Comments: Patient had I&D done at . Her packing fallen out. We placed packing after irrigating the wound Radiology/EKG/Labs: No orders to display EKG No orders to display Labs Reviewed - No data to display Medications fluconazole (DIFLUCAN) tablet 150 mg (has no administration in time range) ED Course: Appropriate laboratory and radiology studies reviewed ED Clinical Impression: 1. Visit for wound check 2. Abscess 3. Yeast vaginitis Critical Care time MDM Medical Decision Making 39-year-old presents as above. No fevers or chills. Vitals are stable. After discussion of risks and benefits we replaced packing per her preference. She has Bactrim Keflex currently in her car and declines them in the ER. She tells me the wound is not getting any worse. The infection is not getting any worse. We will also treat for yeast vaginitis with a dose of Diflucan in the ED as she is unable to affordoutpatient medications. Discussed need for close follow-up with PCP for wound check and she is agreeable. Will discharge with close follow-up Although hospitalization was considered given age, medical co morbidities and chief complaint; reassuring workup and symptom improvement on reassessment prior to discharge supports decision for further outpatient management/evaluation/treatment. The plan is to discharge to home. Patient is in agreement with plan and questions have been answered. I discussed with patient the results of evaluation in the ED, diagnosis, care, and prognosis. I also discussed with patient the reasons which may require a return visit and the importance of follow-up care. The patient is well- appearing, nontoxic, and improved at the time of discharge. Patient agrees to call to arrange follow-up care as directed. Patient understands to return immediately for worsening/change in symptoms. Condition at Discharge/Transfer from Department: Stable This chart was completed using voice recognition technology and may contain unintended errors Curtis George NP 01/09/252247 Cosigned by Nisa Carter MD at 01/10/2025 8:13 AM EDT Associated attestation - Nisa Carter MD - 01/10/2025 8:13 AM EDT I have reviewed the chief complaint, history of present illness, physical examination, and workup results for this patient. I have participated in the care of this patient. I personally approved the management plan for this patient and took responsibility for the patient management. This chart was completed using voice recognition technology and may contain unintended errors documented in this encounter Plan of Treatment Not on file documented as of this encounter Procedures Procedure Name Priority Date/Time Associated Diagnosis Comments ED INCISION AND DRAINAGE Routine 01/09/2025 10:44 PM EDT Abscess documented in this encounter Results * Incision-Drainage (01/09/2025 10:44 PM EDT) Narrative [facility] - 01/09/2025 10:44 PM EDT Nisa Carter MD 01/10/2025 8:13 AM Incision-Drainage Date/Time: 01/09/2025 10:44 PM Performed by: Curtis George NP Authorized by: Curtis Georeg NP Consent: Consent obtained: Verbal Consent given by: Patient Risks, benefits, and alternatives were discussed: yes Risks discussed: Bleeding, incomplete drainage, pain, damage to other organs and infection Alternatives discussed: No treatment, alternative treatment and referral [place] protocol: Patient identity confirmed: Verbally with patient Pre-procedure details: Skin preparation: Povidone-iodine Procedure details: Wound management: Irrigated with saline Packing materials: 07/19 in iodoform gauze Comments: Patient had I&D done at . Her packing fallen out. We placed packing after irrigating the wound Curtis George TRAVELING PHLEBOTOMIST PROCEDURE/MINOR SURGICAL ORDER LORI Final Result [facility] [address] [id number] documented in this encounter Visit Diagnoses Diagnosis Visit for wound check- Primary Encounter for other specified aftercare Abscess Cellulitis and abscess of unspecified site Yeast vaginitis Candidiasis of vulva and vagina documented in this encounter Administered Medications Inactive Administered Medications - up to 1 most recent administrations Medication Order MAR Action Action Date Dose Rate Site fluconazole (DIFLUCAN) tablet 150 mg 150 mg, Oral, ONCE, 1 dose, On Sun01/09/25 at 2245, Reason for Therapy: Medical Prophylaxis Given 01/09/2025 10:58 PM EDT 150 mg documented in this encounter Active and Recently Administered Medications Times are shown in EDT. Scheduled Medication Order 01/07/2025 01/08/2025 01/09/2025 fluconazole (DIFLUCAN) tablet 150 mg (COMPLETED) 150 mg, Oral, ONCE, 1 dose, On Sun01/09/25 at 2245, Reason for Therapy: Medical Prophylaxis 2534 (Given - Provid er: KENNY Antunez) documented in this encounter Orders Medications Ordered That [place] ht Not Have Been Administered Count Last Ordered Date First Ordered Date fluconazole (DIFLUCAN) tablet 150 mg 1 12/15 documented in this encounter Care Teams Transit Vehicle Inspector Relationship Specialty Start Date End Date Ryan Love MD PCP - General Family Medicine 08/14/21 documented as of this encounter
--- OUTSIDE RECORDS SUMMARY | 2025-01-15 07:30 | XMS_ITS | Encounter Summary ---
Author Organization Healthcare Address [address] [place] [address] Care Team Providers Care Certified Family Mediator Name Role Phone Pcp, No Primary Care Provider Unavailabl e Bren Lira DMD Unavailable [phone] Eugene Holloway Unavailable Unavailabl e Encounter Details Date Type Department Care Team (Latest Contact Info) Description 01/15/2025 7:30 AM EDT Office Visit [facility] supervisor [facility] [address] [place] [phone] Garrison Galindo, DMD [address] [place] [address] Oral mucosal lesion (Primary Dx) Social History [...] Patient to follow-up p.r.n. Garrison Galindo DMD [facility] hand glass cutter PGY-1 Pager #: [phone] Cosigned by Akin Shay DMD at 01/21/2025 8:36 AM EDT Associated attestation - Akin Shay DMD - 01/21/2025 8:36 AM EDT I was present during all critical and ashton portions of the procedure(s) and immediately available [facility] services the entire duration. See resident [...] documented as of this encounter Care Teams Certified Family Mediator Relationship Specialty Start Date End Date Pcp, No [address] [place] [address] PCP - General Family Medicine 09/05/24 Bren Lira, DMD [address] [phone] Dentist 09/18/24 Eugene Holloway Dental Student Dental Credit Analyst 09/18/24 documented as of this encounter
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
--- OUTSIDE RECORDS SUMMARY | 2025-03-03 09:02 | XMS_ITS | Encounter Summary ---
Author Organization [facility] [place] [address] Care Team Providers Care Service Dispatcher Name Role Phone Ryan Love MD Primary Care Provider [phone] Encounter Details Date Type Department Care Team [...] 10:17 PM EDT Azam Frances RN * [place] Suicide Severity Rating Scale (Q shift for [...] filedocumented in this encounter Care Teams Service Dispatcher Relationship Specialty Start Date End Date Ryan Love MD PCP - General Family Medicine 08/14/21 documented as of this encounter
--- OUTSIDE RECORDS SUMMARY | 2025-03-03 09:03 | XMS_ITS | Encounter Summary ---
Author Organization [facility] Address [address] [place] [id number] Care Team Providers Care Gas Burner Operator Name Role Phone Ryan Love MD Primary Care Provider [phone] Source Comments This information has been disclosed [...] release of HIV test results or diagnoses. [id number] Health Encounter Details Date Type Department Care [...] on filedocumented in this encounter Care Teams Gas Burner Operator Relationship Specialty Start Date End Date Ryan Love MD [address] [place] [address] PCP - General Family Medicine 09/24/24 documented as of this encounter
--- OUTSIDE RECORDS SUMMARY | 2025-03-03 09:03 | XMS_ITS | Clinical Summary ---
Author Organization [facility] Address [address] [place] [address] Care Team Providers Care Salad Counter Attendant Name Role Phone Ryan Love MD Primary Care Provider [phone] Source Comments This information has been disclosed [...] therelease of HIV test results or diagnoses. [id number] Health Allergies Active Allergy Reactions [...] Encounters Date Type Department Care Team Description 02/27/2025 Orders Only [facility] [address] [place] [address] Georgina Saxena CNP Neoplasm of uncertain behavior of skin (Primary Dx) 01/09/2025 3:53 AM EDT - 01/09/2025 7:21 AM EDT Emergency [facility] Emergency Department [address] [place] [address] Franki Pedroza MD Abscess (Primary Dx) Discharge Disposition: Home or Self Care WITHOUT Home Care Services 01/08/2025 Travel 12/23/2024 9:46 PM EDT - 12/24/2024 12:31 AM EDT Emergency [facility] Emergency Department [address] [place] [phone] Discharge Disposition: ED Dismiss - Left Before Treatment 12/23/2024 Travel 12/20/2024 Travel 12/19/2024 11:59 PM EDT - 12/20/2024 2:59 AM EDT Emergency [facility] Emergency Department [address] [place] [phone] Discharge Disposition: ED Dismiss - Left Before [...] Procedure Name Priority Date/Time Associated Diagnosis Comments SKIN / NAIL BIOPSY Routine 02/26/2025 12 :00 AM EDT Neoplasm of uncertain behavior of skin INCISION AND DRAINAGE Routine 01/09/2025 7:42 AM [...] EDT from Last 3 Months Results * Skin / nail biopsy (02/26/2025 12:00 AM EDT) 02/26/2025 02/27/2025 Narrative [facility] - 02/26/2025 12:00 AM EDT CASE: [id number] PATIENT: JULIANA ROSSI Clinical Impression: A) B) DN. Site(s): A. R upper back B. R upper back lat CPT Code(s): 63688 X 2 Diagnosis: A. 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 B. R upper back lat Compound nevus. Microscopic Exam: A. R upper back There is a compound nevus that extends into the reticular dermis. B. R upper back lat There are nests and sheets of nevus cells in the dermis and dermoepidermal junction. There is no atypia or inflammation. Gross Description: Specimens of skin were received measuring: A) 7 x 6 x 1 mm B) 7 x 7 x 1 mm. Final Diagnosis performed by BRADLEY VEGA MD Electronically signed 03/02/2025 03:28:53 PM The Pathologist signing this report is located at [facility], [address] [place] [address], [address], , CLIA ID: [id number] [facility] DERM PROCEDURE ORDERABLES Sandie l Result [facility] * Incision/Drainage (01/09/2025 7:42 AM EDT) Franki [...] - 100 mg/dL 01/09/2025 12:35 AM EDT [facility] Blood 01/09/2025 12:3 4 AM EDT 01/09/2025 12:35 AM EDT Ryan Love MD POINT OF CARE TEST ORDERABLES F inal Result [facility] [address] [place] [address]. [address] * HCG Urine, Qualitative (12/23/2024 10:28 PM EDT) Pathologist [facility] hCG Qualitative -Clinitek Negative Negative 12/23/2024 10:42 PM EDT [facility] Urine 12/23/2024 10:2 8 PM EDT 12/23/2024 10:33 PM EDT Amisha LEWIS URINE ORDERABLES Final Result Performing Organization Address [facility] Co de Phone Number [facility] [address] [facility]. [address] * High Sensitivity Troponin (12/23/2024 10:28 PM EDT) Only the most recent of2 resultswithin the time period is included. Pathologist [facility] High Sensitivity Troponin 3 0 - 14 ng/L 12/23/2024 10:58 PM EDT [facility] Serum 12/23/2024 10:2 8 PM EDT 12/23/2024 10:33 PM EDT Amisha LEWIS LAB BLOOD ORDERABLES Final Resul t Performing Organization Address [facility] Co de Phone Number [facility] [address] [place] [address]. [address] * (ABNORMAL) Urinalysis, Microscopic (12/23/2024 10:28 PM EDT) Pathologist [facility] RBC, UA 3 0 - 3 /HPF 12/23/2024 10:59 PM EDT [facility] WBC, UA >100(H) 0 - 5 /HPF 12/23/2024 10:59 PM EDT [facility] WBC Clumps, UA Moderate(A ) None Seen /HPF 12/23/2024 10:59 PM EDT [facility] Squam Epithel, UA 1 0 - 5 /HPF 12/23/2024 10:59 PM EDT [facility] Trans Epithel, UA 2 0 - 5 /HPF 12/23/2024 10:59 PM EDT [facility] Bacteria, UA Moderate(A ) None Seen /HPF 12/23/2024 10:59 PM EDT [facility] Hyaline Casts, UA 1 0 - 2 /LPF 12/23/2024 10:59 PM EDT [facility] Urine 12/23/2024 10:2 8 PM EDT 12/23/2024 10:35 PM EDT us Amisha LEWIS URINE ORDERABLES Final Result Performing Organization Address City/State/[facility] Co de Phone Number [facility] [address] * (ABNORMAL) Urinalysis-Macroscopic w/Rfx to Microsco (12/23/2024 10:28 PM EDT) Color, UA Yellow Yellow,Straw 12/23/2024 10:59 PM EDT [facility] Clarity, UA Cloudy(A) Clear 12/23/2024 10:59 PM EDT [facility] Specific [place], UA 1.015 1.005 - 1.035 12/23/2024 10:59 PM EDT [facility] pH, UA 6.0 5.0 - 8.0 12/23/2024 10:59 PM EDT [facility] Protein, UA Negative Negative mg/dL 12/23/2024 10:59 PM EDT [facility] Glucose, UA Negative Negative mg/dL 12/23/2024 10:59 PM EDT [facility] Ketones, UA Negative Negative mg/dL 12/23/2024 10:59 PM EDT [facility] Bilirubin, UA Negative Negative 12/23/2024 10:59 PM EDT [facility] Blood, UA Trace-intact (A) Negative 12/23/2024 10:59 PM EDT [facility] Nitrite, UA Positive(A) Negative 12/23/2024 10:59 PM EDT [facility] Urobilinogen, UA 0.2 E.U./dL 0.2 - 1.0 EU/dL 12/23/2024 10:59 PM EDT [facility] Leukocyte Esterase, UA Moderate(A) Negative 12/23/2024 10:59 PM EDT [facility] Urine 12/23/2024 10:2 8 PM EDT 12/23/2024 10:33 PM EDT us Amisha LEWIS URINE ORDERABLES Final Result [facility] [address] [place] [address], [facility] * Hepatic Function Panel (12/23/2024 10:28 PM EDT) Only the most recent of2 resultswithin the time period is included. Total Bilirubin 0.5 0.0 - 1.5 mg/dL 12/23/2024 10:52 PM EDT [facility] Bilirubin, Direct 0.3 0.0 - 0.4 mg/dL 12/23/2024 10:52 PM EDT [facility] AST 18 13 - 39 U/L 12/23/2024 10:52 PM EDT [facility] ALT 17 7 - 52 U/L 12/23/2024 10:52 PM EDT [facility] Alkaline Phosphatase 47 36 - 125 U/L 12/23/2024 10:52 PM EDT [facility] Total Protein 6.9 6.4 - 8.9 g/dL 12/23/2024 10:52 PM EDT [facility] Albumin 4.0 3.5 - 5.7 g/dL 12/23/2024 10:52 PM EDT [facility] Bilirubin, Indirect 0.2 0.0 - 1.1 mg/dL 12/23/2024 10:52 PM EDT [facility] Plasma 12/23/2024 10:2 8 PM EDT 12/23/2024 10:33 PM EDT Amisha LEWIS LAB BLOOD ORDERABLES Final Resul t [facility] [address] [facility]. [address] * Differential (12/23/2024 10:28 PM EDT) Only the most recent of2 resultswithin the time period is included. Neutrophils Relative 54.5 40.0 - 80.0 % 12/23/2024 10:54 PM EDT [facility] Lymphocytes Relative 31.9 15.0 - 45.0 % 12/23/2024 10:54 PM EDT [facility] Monocytes Relative 7.9 0.0 - 12.0 % 12/23/2024 10:54 PM EDT [facility] Eosinophils Relative 4.8 0.0 - 8.0 % 12/23/2024 10:54 PM EDT [facility] Basophils Relative 0.9 0.0 - 1.0 % 12/23/2024 10:54 PM EDT [facility] nRBC 0 0 - 0 /100 WBC 12/23/2024 10:54 PM EDT [facility] Neutrophils Absolute 4,197 1,520 - 8,640 /uL 12/23/2024 10:54 PM EDT [facility] Lymphocytes Absolute 2,456 570 - 4,860 /uL 12/23/2024 10:54 PM EDT [facility] Monocytes Absolute 608 0 - 1,296 /uL 12/23/2024 10:54 PM EDT [facility] Eosinophils Absolute 370 0 - 864 /uL 12/23/2024 10:54 PM EDT [facility] Basophils Absolute 69 0 - 108 /uL 12/23/2024 10:54 PM EDT [facility] Whole Blood 12/23/2024 10:2 8 PM EDT 12/23/2024 10:46 PM EDT Amisha LEWIS LAB BLOOD ORDERABLES Final Resul t [facility] [address] [place] [address], [facility] * (ABNORMAL) CBC (12/23/2024 10:28 PM EDT) Only the most recent of2 resultswithin the time period is included. WBC 7.7 3.8 - 10.8 10E3/uL 12/23/2024 10:54 PM EDT [facility] RBC 3.81 3.80 - 5.10 10E6/uL 12/23/2024 10:54 PM EDT [facility] Hemoglobin 12.6 11.7 - 15.5 g/dL 12/23/2024 10:54 PM EDT [facility] Hematocrit 37.3 35.0 - 45.0 % 12/23/2024 10:54 PM EDT [facility] MCV 98.1 80.0 - 100.0 fL 12/23/2024 10:54 PM EDT [facility] MCH 33.1(H) 27.0 - 33.0 pg 12/23/2024 10:54 PM EDT [facility] MCHC 33.8 32.0 - 36.0 g/dL 12/23/2024 10:54 PM EDT [facility] RDW 13.3 11.0 - 15.0 % 12/23/2024 10:54 PM EDT [facility] Platelets 247 140 - 400 10E3/uL 12/23/2024 10:54 PM EDT [facility] MPV 7.6 7.5 - 11.5 fL 12/23/2024 10:54 PM EDT [facility] Whole Blood 12/23/2024 10:2 8 PM EDT 12/23/2024 10:46 PM EDT us Amisha LEWIS LAB BLOOD ORDERABLES Final Resul t [facility] [address] [place] [address], [facility] * (ABNORMAL) Basic metabolic panel (12/23/2024 10:28 PM EDT) Only the most recent of2 resultswithin the time period is included. Sodium 140 133 - 146 mmol/L 12/23/2024 10:52 PM EDT [facility] Potassium 3.8 3.5 - 5.3 mmol/L 12/23/2024 10:52 PM EDT [facility] Chloride 110 98 - 110 mmol/L 12/23/2024 10:52 PM EDT [facility] CO2 24 21 - 33 mmol/L 12/23/2024 10:52 PM EDT [facility] Anion Gap 6 3 - 16 mmol/L 12/23/2024 10:52 PM EDT [facility] BUN 6(L) 7 - 25 mg/dL 12/23/2024 10:52 PM EDT [facility] Creatinine 0.88 0.60 - 1.30 mg/dL 12/23/2024 10:52 PM EDT [facility] Glucose 124(H) 70 - 100 mg/dL 12/23/2024 10:52 PM EDT [facility] Calcium 8.7 8.6 - 10.3 mg/dL 12/23/2024 10:52 PM EDT [facility] Osmolality, Calculated 289 278 - 305 mOsm/kg 12/23/2024 10:52 PM EDT [facility] EGFR 85 12/23/2024 10:52 PM EDT [facility] Comment:As of 2021, the [...] LEWIS LAB BLOOD ORDERABLES Final Resul t [facility] [address] [place] [address], [facility] * X-ray Chest PA and Lateral [...] Ab Nonreactive Nonreactive 12/20/2024 2:07 AM EDT [facility] Comment:Health Department no tified in accordance with reportable infectious disease guidelines. HCVAB Number 0.05 0.00 - 0.79 S/CO 12/20/2024 2:07 AM EDT [facility] Serum 12/20/2024 12:5 6 AM EDT 12/20/2024 1:08 AM EDT Kathryn LEWIS LAB BLOOD ORDERABLES Final Resul t Performing Organization Address [facility] Co de Phone Number [facility] [address] [facility] [place] [address], [facility] * BNP (12/20/2024 12:56 AM EDT) BNP 20 0 - 100 pg/mL 12/20/2024 2:10 AM EDT [facility] Comment: BNP may be increased in the presence of sacubitril/valsartan (Entresto). Please interpret accordingly. Plasma 12/20/2024 12:5 6 AM EDT 12/20/2024 1:10 AM EDT Narrative [facility] - 12/20/2024 2:10 AM EDT The presence of high concentrations of biotin may cause falsely lowered BNP results. Biotin interference may be seen if an individual is taking >5 mg biotin per day. Interpret BNP results in the context of the patient's clinical presentation. Kathryn LEWIS LAB BLOOD ORDERABLES Final Resul t Performing Organization Address [facility] de Phone Number [facility] [address] [facility] [place] [address], [facility] * ECG for indication of syncope (12/20/2024 12:50 AM EDT) 12/20/2024 12:5 0 AM EDT Narrative [facility] - 12/20/2024 8:16 AM EDT Ventricular Rate: 67 BPM Atrial Rate: 67 BPM P-R Interval: 154 ms QRS Duration: 88 ms QT: 394 ms QTc: 416 ms P Sharon: 11 degrees R Sharon: -4 degrees T Sharon: -5 degrees Diagnosis Line: ^ INTERPRETATION NOT AVAILABLE--ECG READ IN ER ^ Confirmed by PHYSICIAN, ER ([id number]), news editor Le Simon ([id number]) on 12/20/2024 8:16:14 AM Kathryn Talley PA ECG ORDERABLES Final Result MUSE from Last 3 Months Insurance [facility] Address: [facility] [id number] [place] [address] Care Teams Salad Counter Attendant Relationship Specialty [place] [address] [place] [address] [place] [address] PCP - General Family Medicine 09/24/24
--- OUTSIDE RECORDS SUMMARY | 2025-03-03 09:03 | XMS_ITS | Clinical Summary ---
Author Organization [facility] Address [address] [place] [address] Care Team Providers Care Construction Inspector Name Role Phone Pcp, No Primary Care Provider Unavailabl e Bren Lira DMD Unavailable Eugene Holloway Unavailable Unavailabl e Allergies No known active allergies Medications HYDROcodone-acetami nophen ([place]) 5-325 MG tabletIndications:P ain,Back pain Take 1 [...] 01/15/2025 7:30 AM EDT Office Visit [facility] [address] [place] [phone] Garrison Galindo, DMD Oral mucosal lesion (Primary Dx) 01/15/2025 Travel 12/26/2024 2:30 PM EDT Evaluation [facility] [address] [place] [phone] Akin Shay, DMD Oral mucosal lesion (Primary Dx) 12/26/2024 Travel 12/26/2024 Telephone [facility] [address] [place] [phone] Surgeon Rosas MD 12/25/2024 Telephone [facility] [address] [place] [phone] Surgeon Rosas MD from Last 3 Months Family History Medical [...] of 2 - 13+ 2-dose series) 1996 [facility]- SDOH Screenings 2001 [facility]-Adult SDOH Screenings 2001 [facility]-DTaP,Tdap,and Td Vaccine s (1 - Tdap) 2002 [facility]-Hepatitis B Vaccines (1 of 3 - 19+ 3-dose series) 2002 HPV Vaccines (1 - 3-dose SCD M series) 2010 [id number]-11 Vaccine ( - 2023- season) 2024 11/24/2020, 10/27/2020 Dental [...] Most Recently Relevant to Health Maintenance Insurance [address] Care Teams Construction Inspector Relationship Specialty Start Date End Date Pcp, No [address] [place] [address] PCP - General Family Medicine 09/05/24 Bren Lira, DMD [address] [address] Dentist 09/18/24 Eugene Holloway Dental Student Dental General Internist 09/18/24
--- OUTSIDE RECORDS SUMMARY | 2025-03-03 09:03 | XMS_ITS | Encounter Summary ---
Author Organization [facility] Address [facility] [place] [address] Care Team Providers Care Washing Machine Mechanic Name Role Phone Ryan Love MD Primary Care Provider [phone] Source Comments This information has been disclosed [...] release of HIV test results or diagnoses. [id number] Health Encounter Details Date Type Department Care Team (Late st Contact Info) Description 02/27/2025 Orders Only [facility] [address] [place] [address] Georgina Saxena, [facility] [address] [id number] Neoplasm of uncertain behavior of skin (Primary Dx) Social History Tobacco Use Types [...] EDT Neoplasm of uncertain behavior of skin documented in this encounter Results * Skin / nail biopsy (02/26/2025 12:00 AM EDT) 02/26/2025 02/27/2025 Narrative [facility] - 02/26/2025 12:00 AM EDT CASE: [id number] PATIENT: JULIANA ROSSI Clinical Impression: A) B) DN. Site(s): A. R upper back B. R upper back lat CPT Code(s): 06465 X 2 Diagnosis: A. R upper back [...] Pathologist signing this report is located at [facility] Dermatopathology Laboratory, [address] [place] [address], [address], , CLIA ID: [id number] [facility] DERM PROCEDURE ORDERABLES Sandie l Result [facility] documented in this encounter Visit Diagnoses Diagnosis Neoplasm of uncertain behavior of skin- Primary documented in this encounter Care Teams Washing Machine Mechanic Relationship Specialty Start Date End Date Ryan Love MD [address] [place] [address] PCP - General Family Medicine 09/24/24 documented as of this encounter
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
--- OUTSIDE RECORDS SUMMARY | 2025-03-03 09:03 | XMS_ITS | Encounter Summary ---
Author Organization [facility] Address [address] [place] [address] Care Team Providers Care Reference Assistant Name Role Phone Pcp, Paulina Primary Care [...] documented as of this encounter Care Teams Reference Assistant Relationship Specialty Start Date End Date Pcp, No [address] [place] [address] PCP - General Family Medicine 09/05/24 Bren Lira DMD [address] [phone] Dentist 09/18/24 Eugene Holloway Dental Student Dental Wireless Sales Representative 09/18/24 documented as of this encounter
--- OUTSIDE RECORDS SUMMARY | 2025-03-03 09:03 | XMS_ITS | Encounter Summary ---
Author Organization [facility] Address [address] [place] [address] Care Team Providers Care Third Loader Name Role Phone Pcp, No Primary Care Provider Unavailabl e Bren Lira DMD Unavailable Eugene Holloway Unavailable Unavailabl e Reason for Referral * Consultation (Routine) - Authorized Specialty Diagnoses / Procedures Referred By Octavio t Referred To Contact Neurosurgery Diagnoses Thoracic, thoracolumbar and lumbosacral intervertebral disc disorder Ryan Love MD [address] [place] [address] Phone: tel: fax: Referral ID Status Reason Start Date Expiration Date Visits Requested Visits Authorized [id number] Authorized Specialty Services Required 02/04/2024 08/05/2025 1 1 Encounter Details Date Type Department Care Team (Latest Contact Info) Description 02/04/2024 Community [facility] [address] [place] [address] [facility] [place] [address] Thoracic, thoracolumbar and lumbosacral intervertebral disc disorder [...] Primary documented in this encounter Care Teams Third Loader Relationship Specialty Start Date End Date Pcp, No [address] [place] [address] PCP - General Family Medicine 09/05/24 Bren Lira, DMD [address] [phone] Dentist 09/18/24 Eugene Holloway Dental Student Dental Post Office Markup Clerk 09/18/24 documented as of this encounter
[2025-03-03 09:18] LABS: Anion Gap 8.2 mEq/L (5-15); Blood Urea Nitrogen 14 mg/dl (7-17); Calcium 9.2 mg/dl (8.4-10.2); Carbon Dioxide 24 mmol/L (22.0-30.0); Chloride 106 mmol/L (98-107); Creatinine,Serum 0.70 mg/dl (0.52-1.04); Estimated Glomerular Filt Rate 92 ml/min (>60); GFR (African American) 112 ML/MIN (>60); Glucose 118 mg/dl (74-100); Potassium 3.2 mmoL/L (3.5-5.1); Sodium 135 mmol/L (136-145)
== END 2025-03-03 23:59 | disposition home or self-care (01) ==
LOC: LAB 08:43
PROVIDERS: PCP Family Medicine; Visit Provider Nurse Practitioner
DX: E87.6 Hypokalemia (principal)
CPT/HCPCS: 36415; 80048

== ENCOUNTER 2025-03-10 10:30 | Outpatient (CLI) | payer OTHER, SELFPAY ==
--- OUTSIDE RECORDS SUMMARY | 2025-01-09 22:05 | XMS_ITS | Encounter Summary ---
Author Organization [place] [address] Care Team Providers Care Grommet Worker Name Role Phone Ryan Love MD Primary Care Provider [phone] Reason for Visit * Reason Comments Wound Check Pt had a MRSA bump drained at [facility] yesterday, now the packing has fallen out, she states she is here to have it repacked. Wound is located on her right upper inner thigh. Encounter Details Date Type Department Care Team (Late Contact Info) Description 01/09/2025 10:05 PM EDT - 01/09/2025 11:01 PM EDT Emergency [place] [facility] [place] [address] Nisa Carter MD [address] [place] [address] [place] [address] Visit for wound check (Primary [...] Assessment Author No 08/17/2021 12:27 PM Selwyn Welhs RN * Is the person blind or [...] 10:17 PM EDT Azam Frances RN * [place] Suicide Severity Rating Scale (Q shift for [...] Means Destination Comment s Home or Self [facility] documented in this encounter ED Notes * Curtis George NP - 01/09/2025 9:49 PM EDTAssociated Order(s): Incision-Drainage Post-Procedure Diagnose(s): Abscess Images from the original note were not included. Chief Complaint Patient presents with Wound Check Pt had a MRSA bump drained at [facility] yesterday, now the packing has fallen out, she states she is here to have it repacked. Wound is located on her right upper inner thigh. Wound Check 39 y.o. y.o. with has a past medical history of Arthritis, Asthma, Bipolar 2 disorder ([facility]), COPD (chronic obstructive pulmonary disease) ([facility]), Diabetes mellitus ([facility]), and H/O degenerative disc disease. presents to ED with c/o packing falling out of an abscess. Patient had I&D at [facility] this morning. She was prescribed Bactrim and [...] nursing note reviewed. Exam conducted with a fish house worker present. Constitutional: General: She is not in [...] discussed: No treatment, alternative treatment and referral [place] protocol: Patient identity confirmed: Verbally with patient [...] * Incision-Drainage (01/09/2025 10:44 PM EDT) Narrative [facility] - 01/09/2025 10:44 PM EDT Nisa Carter MD 01/10/2025 8:13 AM Incision-Drainage Date/Time: 01/09/2025 10:44 PM Performed by: Curtis George NP Authorized by: Curtis George NP Consent: Consent obtained: Verbal Consent given by: Patient Risks, benefits, and alternatives were discussed: yes Risks discussed: Bleeding, incomplete drainage, pain, damage to other organs and infection Alternatives discussed: No treatment, alternative treatment and referral [place] protocol: Patient identity confirmed: Verbally with patient Pre-procedure details: Skin preparation: Povidone-iodine Procedure details: Wound management: Irrigated with saline Packing materials: 07/19 in iodoform gauze Comments: Patient had I&D done at . Her packing fallen out. We placed packing after irrigating the wound Curtis George LENS GENERATOR PROCEDURE/MINOR SURGICAL ORDER LORI Final Result [facility] [address] [id number] documented in this encounter Visit Diagnoses Diagnosis [...] at 2245, Reason for Therapy: Medical Prophylaxis 7880 (Given - Provid er: KENNY Antunez) documented in this encounter Orders Medications Ordered That [place] ht Not Have Been Administered Count Last Ordered Date First Ordered Date fluconazole (DIFLUCAN) tablet 150 mg 1 12/15 documented in this encounter Care Teams Grommet Worker Relationship Specialty Start Date End Date Ryan Love MD PCP - General Family Medicine 08/14/21 documented as of this encounter
--- OUTSIDE RECORDS SUMMARY | 2025-01-15 07:30 | XMS_ITS | Encounter Summary ---
Author Organization Healthcare Address [address] [place] [address] Care Team Providers Care Martial Arts Instructor Name Role Phone Pcp, No Primary Care Provider Unavailabl e Bren Lira DMD Unavailable [phone] Eugene Holloway Unavailable Unavailabl e Encounter Details Date Type Department Care Team (Latest Contact Info) Description 01/15/2025 7:30 AM EDT Office Visit [facility] [address] [place] [phone] Garrison Galindo, DMD [address] [place] [address] Oral mucosal lesion (Primary Dx) Social History [...] Sign Reading Time Taken Comments Blood Pressure 115/64 01/15/2025 7:34 AM EDT Pulse 65 01/15/2025 7:34 AM EDT Temperature 36.7 C (98.1 F) 01/15/2025 7:34 AM EDT Respiratory Rate - - Oxygen Saturation 93% 01/15/2025 7:34 AM EDT Inhaled Oxygen Concentration - - Weight 144 kg (317 lb 7.4 oz) 01/15/2025 7:34 AM EDT Height 180.3 cm (5' 11 ) 01/15/2025 7:34 AM EDT Body Mass Index 44.28 01/15/2025 7:34 AM EDT documented in this encounter Miscellaneous Notes * Progress Notes - Garrison Galindo DMD - 01/15/2025 7:30 AM EDT ORAL & MAXILLOFACIAL SURGERY - Operative Report Patient (ASA 2) presents to clinic for scheduled surgery - PMH and R/B/A's reviewed, informed consent updated. - A timeout was performed. - Pre-op Diagnosis: Epulis Fissuratum - Post-op Diagnosis: Same - Resident/Attending: Garrison Galindo DMD/Dr. Shay - Procedure: Exesion of mandibular buccal epulis fissuratum - Estimated Blood Loss: Minimal Local Anesthesia: - 1.8 mg 2% Lidocaine w/1:100,000 epi [x1] Description of Procedure Local anesthesia was achieved. Fifteen blade was used to excise the lesion in totality. Gauze pressure pack placed and held for 5 minutes till hemostasis was observed. More local anesthesia was givenaround the site to help with hemostasis and postoperative discomfort. Patient to follow-up p.r.n. Garrison Galindo DMD [facility] building construction contractor PGY-1 Pager #: [phone] Cosigned by Akin Shay DMD at 01/21/2025 8:36 AM EDT Associated attestation - Akin Shay DMD - 01/21/2025 8:36 AM EDT I was present during all critical and ashton portions of the procedure(s) and immediately available [facility] services the entire duration. See resident note for details. documented in this encounter Plan of Treatment Not on file documented as of this encounter Visit Diagnoses Diagnosis Oral mucosal lesion- Primary documented in this encounter Additional Health Concerns Assessment Noted Time A Body Mass Index follow-up plan has been documented for the patient 01/16/2025 12:08 PM EDT documented as of this encounter Care Teams Martial Arts Instructor Relationship Specialty Start Date End Date Pcp, No [address] [place] [address] PCP - General Family Medicine 09/05/24 Bren Lira, DMD [address] [phone] Dentist 09/18/24 Eugene Holloway Dental Student Dental Entry Level Accountant 09/18/24 documented as of this encounter
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
--- OUTSIDE RECORDS SUMMARY | 2025-03-11 13:13 | XMS_ITS | Encounter Summary ---
Author Organization [facility] Address [address] [place] [address] Care Team Providers Care Soil Conservation Technician Name Role Phone Pcp, No Primary Care Provider Unavailabl e Bren Lira DMD Unavailable [phone] Eugene Holloway Unavailable Unavailabl e Reason for Referral * Consultation (Routine) - Authorized Specialty Diagnoses / Procedures Referred By Octavio t Referred To Contact Neurosurgery Diagnoses Thoracic, thoracolumbar and lumbosacral intervertebral disc disorder Ryan Love MD [address] [place] [address] Phone: tel: fax: Referral ID Status Reason Start Date Expiration Date Visits Requested Visits Authorized [id number] Authorized Specialty Services Required 02/04/2024 08/05/2025 1 1 Encounter Details Date Type Department Care Team (Latest Contact Info) Description 02/04/2024 Community [facility] Community Practice [address] [place] [address] Ryan Love MD [facility] [place] [address] Thoracic, thoracolumbar and lumbosacral intervertebral disc disorder [...] Primary documented in this encounter Care Teams Soil Conservation Technician Relationship Specialty Start Date End Date Pcp, No [address] [place] [address] PCP - General Family Medicine 09/05/24 Bren Lira, DMD [address] [address] Dentist 09/18/24 Eugene Holloway Dental Student Dental Wiring Mechanic 09/18/24 documented as of this encounter
--- OUTSIDE RECORDS SUMMARY | 2025-03-11 13:13 | XMS_ITS | Clinical Summary ---
Author Organization [facility] Address [address] [place] [address] Care Team Providers Care Painter Spray Name Role Phone Ryan Love MD Primary Care Provider [phone] Source Comments This information has been disclosed [...] therelease of HIV test results or diagnoses. [id number] Health Allergies Active Allergy Reactions Criticality [...] [facility] [address] [place] [address] Georgina Saxena CNP Neoplasm of uncertain behavior of skin (Primary Dx) 01/09/2025 3:53 AM EDT - 01/09/2025 7:21 AM EDT Emergency [facility] Emergency Department [address] [place] [address] Franki Pedroza MD Abscess (Primary Dx) Discharge Disposition: Home or Self Care WITHOUT Home Care Services 01/08/2025 Travel 12/23/2024 9:46 PM EDT - 12/24/2024 12:31 AM EDT Emergency [facility] Emergency Department [address] [place] [address] Discharge Disposition: ED Dismiss - Left Before Treatment 12/23/2024 Travel 12/20/2024 Travel 12/19/2024 11:59 PM EDT - 12/20/2024 2:59 AM EDT Emergency [facility] Emergency Department [address] [place] [phone] Discharge Disposition: ED Dismiss - Left Before [...] POWERPATH - 02/26/2025 12:00 AM EDT CASE: [id number] PATIENT: JULIANA ROSSI Clinical Impression: A) B) DN. Site(s): A. R upper back B. R upper back lat CPT Code(s): 73857 X 2 Diagnosis: A. R upper back [...] Pathologist signing this report is located at [facility], [address] [place] [address], [address], , CLIA ID: [id number] [facility] DERM PROCEDURE ORDERABLES Sandie l Result POWERPATH [...] - 100 mg/dL 01/09/2025 12:35 AM EDT [facility] Blood 01/09/2025 12:3 4 AM EDT 01/09/2025 12:35 AM EDT Ryan Love MD POINT OF CARE TEST ORDERABLES F inal Result [facility] [address] [place] [address]. [address] * HCG Urine, Qualitative (12/23/2024 10:28 PM EDT) Pathologist [facility] hCG Qualitative -Clinitek Negative Negative 12/23/2024 10:42 PM EDT [facility] Urine 12/23/2024 10:2 8 PM EDT 12/23/2024 10:33 PM EDT Amisha LEWIS URINE ORDERABLES Final Result Performing Organization Address [facility] Co de Phone Number [facility] [address] [facility]. [address] * High Sensitivity Troponin (12/23/2024 10:28 PM EDT) Only the most recent of2 resultswithin the time period is included. Pathologist [facility] High Sensitivity Troponin 3 0 - 14 ng/L 12/23/2024 10:58 PM EDT [facility] Serum 12/23/2024 10:2 8 PM EDT 12/23/2024 10:33 PM EDT Amisha LEWIS LAB BLOOD ORDERABLES Final Resul t Performing Organization Address [facility] Co de Phone Number [facility] [address] [place] [address]. [address] * (ABNORMAL) Urinalysis, Microscopic (12/23/2024 10:28 PM EDT) Pathologist [facility] RBC, UA 3 0 - 3 /HPF 12/23/2024 10:59 PM EDT [facility] WBC, UA >100(H) 0 - 5 /HPF 12/23/2024 10:59 PM EDT [facility] WBC Clumps, UA Moderate(A ) None Seen /HPF 12/23/2024 10:59 PM EDT [facility] Squam Epithel, UA 1 0 - 5 /HPF 12/23/2024 10:59 PM EDT [facility] Trans Epithel, UA 2 0 - 5 /HPF 12/23/2024 10:59 PM EDT [facility] Bacteria, UA Moderate(A ) None Seen /HPF 12/23/2024 10:59 PM EDT [facility] Hyaline Casts, UA 1 0 - 2 /LPF 12/23/2024 10:59 PM EDT [facility] Urine 12/23/2024 10:2 8 PM EDT 12/23/2024 10:35 PM EDT us Amsiha LEWIS URINE ORDERABLES Final Result Performing Organization Address City/State/[facility] Co de Phone Number [facility] [address] * (ABNORMAL) Urinalysis-Macroscopic w/Rfx to Microsco (12/23/2024 10:28 PM EDT) Color, UA Yellow Yellow,Straw 12/23/2024 10:59 PM EDT [facility] Clarity, UA Cloudy(A) Clear 12/23/2024 10:59 PM EDT [facility] Specific [place], UA 1.015 1.005 - 1.035 12/23/2024 10:59 PM EDT [facility] pH, UA 6.0 5.0 - 8.0 12/23/2024 10:59 PM EDT [facility] Protein, UA Negative Negative mg/dL 12/23/2024 10:59 PM EDT [facility] Glucose, UA Negative Negative mg/dL 12/23/2024 10:59 PM EDT [facility] Ketones, UA Negative Negative mg/dL 12/23/2024 10:59 PM EDT [facility] Bilirubin, UA Negative Negative 12/23/2024 10:59 PM EDT [facility] Blood, UA Trace-intact (A) Negative 12/23/2024 10:59 PM EDT [facility] Nitrite, UA Positive(A) Negative 12/23/2024 10:59 PM EDT [facility] Urobilinogen, UA 0.2 E.U./dL 0.2 - 1.0 EU/dL 12/23/2024 10:59 PM EDT [facility] Leukocyte Esterase, UA Moderate(A) Negative 12/23/2024 10:59 PM EDT [facility] Urine 12/23/2024 10:2 8 PM EDT 12/23/2024 10:33 PM EDT us Amisha LEWIS URINE ORDERABLES Final Result [facility] [address] [place] [address], [facility] * Hepatic Function Panel (12/23/2024 10:28 PM EDT) Only the most recent of2 resultswithin the time period is included. Total Bilirubin 0.5 0.0 - 1.5 mg/dL 12/23/2024 10:52 PM EDT [facility] Bilirubin, Direct 0.3 0.0 - 0.4 mg/dL 12/23/2024 10:52 PM EDT [facility] AST 18 13 - 39 U/L 12/23/2024 10:52 PM EDT [facility] ALT 17 7 - 52 U/L 12/23/2024 10:52 PM EDT [facility] Alkaline Phosphatase 47 36 - 125 U/L 12/23/2024 10:52 PM EDT [facility] Total Protein 6.9 6.4 - 8.9 g/dL 12/23/2024 10:52 PM EDT [facility] Albumin 4.0 3.5 - 5.7 g/dL 12/23/2024 10:52 PM EDT [facility] Bilirubin, Indirect 0.2 0.0 - 1.1 mg/dL 12/23/2024 10:52 PM EDT [facility] Plasma 12/23/2024 10:2 8 PM EDT 12/23/2024 10:33 PM EDT Amisha LEWIS LAB BLOOD ORDERABLES Final Resul t [facility] [address] [facility]. [address] * Differential (12/23/2024 10:28 PM EDT) Only the most recent of2 resultswithin the time period is included. Neutrophils Relative 54.5 40.0 - 80.0 % 12/23/2024 10:54 PM EDT [facility] Lymphocytes Relative 31.9 15.0 - 45.0 % 12/23/2024 10:54 PM EDT [facility] Monocytes Relative 7.9 0.0 - 12.0 % 12/23/2024 10:54 PM EDT [facility] Eosinophils Relative 4.8 0.0 - 8.0 % 12/23/2024 10:54 PM EDT [facility] Basophils Relative 0.9 0.0 - 1.0 % 12/23/2024 10:54 PM EDT [facility] nRBC 0 0 - 0 /100 WBC 12/23/2024 10:54 PM EDT [facility] Neutrophils Absolute 4,197 1,520 - 8,640 /uL 12/23/2024 10:54 PM EDT [facility] Lymphocytes Absolute 2,456 570 - 4,860 /uL 12/23/2024 10:54 PM EDT [facility] Monocytes Absolute 608 0 - 1,296 /uL 12/23/2024 10:54 PM EDT [facility] Eosinophils Absolute 370 0 - 864 /uL 12/23/2024 10:54 PM EDT [facility] Basophils Absolute 69 0 - 108 /uL 12/23/2024 10:54 PM EDT [facility] Whole Blood 12/23/2024 10:2 8 PM EDT 12/23/2024 10:46 PM EDT Amisha LEWIS LAB BLOOD ORDERABLES Final Resul t [facility] [address] [place] [address], [facility] * (ABNORMAL) CBC (12/23/2024 10:28 PM EDT) Only the most recent of2 resultswithin the time period is included. WBC 7.7 3.8 - 10.8 10E3/uL 12/23/2024 10:54 PM EDT [facility] RBC 3.81 3.80 - 5.10 10E6/uL 12/23/2024 10:54 PM EDT [facility] Hemoglobin 12.6 11.7 - 15.5 g/dL 12/23/2024 10:54 PM EDT [facility] Hematocrit 37.3 35.0 - 45.0 % 12/23/2024 10:54 PM EDT [facility] MCV 98.1 80.0 - 100.0 fL 12/23/2024 10:54 PM EDT [facility] MCH 33.1(H) 27.0 - 33.0 pg 12/23/2024 10:54 PM EDT [facility] MCHC 33.8 32.0 - 36.0 g/dL 12/23/2024 10:54 PM EDT [facility] RDW 13.3 11.0 - 15.0 % 12/23/2024 10:54 PM EDT [facility] Platelets 247 140 - 400 10E3/uL 12/23/2024 10:54 PM EDT [facility] MPV 7.6 7.5 - 11.5 fL 12/23/2024 10:54 PM EDT [facility] Whole Blood 12/23/2024 10:2 8 PM EDT 12/23/2024 10:46 PM EDT us Amisha LEWIS LAB BLOOD ORDERABLES Final Resul t [facility] [address] [place] [address], [facility] * (ABNORMAL) Basic metabolic panel (12/23/2024 10:28 PM EDT) Only the most recent of2 resultswithin the time period is included. Sodium 140 133 - 146 mmol/L 12/23/2024 10:52 PM EDT [facility] Potassium 3.8 3.5 - 5.3 mmol/L 12/23/2024 10:52 PM EDT [facility] Chloride 110 98 - 110 mmol/L 12/23/2024 10:52 PM EDT [facility] CO2 24 21 - 33 mmol/L 12/23/2024 10:52 PM EDT [facility] Anion Gap 6 3 - 16 mmol/L 12/23/2024 10:52 PM EDT [facility] BUN 6(L) 7 - 25 mg/dL 12/23/2024 10:52 PM EDT [facility] Creatinine 0.88 0.60 - 1.30 mg/dL 12/23/2024 10:52 PM EDT [facility] Glucose 124(H) 70 - 100 mg/dL 12/23/2024 10:52 PM EDT [facility] Calcium 8.7 8.6 - 10.3 mg/dL 12/23/2024 10:52 PM EDT [facility] Osmolality, Calculated 289 278 - 305 mOsm/kg 12/23/2024 10:52 PM EDT [facility] EGFR 85 12/23/2024 10:52 PM EDT [facility] Comment:As of 2021, the estimated GFR [...] LEWIS LAB BLOOD ORDERABLES Final Resul t [facility] [address] [place] [address], [facility] * X-ray Chest PA and Lateral [...] Ab Nonreactive Nonreactive 12/20/2024 2:07 AM EDT [facility] Comment:Health Department no tified in accordance with reportable infectious disease guidelines. HCVAB Number 0.05 0.00 - 0.79 S/CO 12/20/2024 2:07 AM EDT [facility] Serum 12/20/2024 12:5 6 AM EDT 12/20/2024 1:08 AM EDT Kathryn LEWIS LAB BLOOD ORDERABLES Final Resul t Performing Organization Address [facility] Co de Phone Number [facility] [address] [facility] [place] [address], [facility] * BNP (12/20/2024 12:56 AM EDT) BNP 20 0 - 100 pg/mL 12/20/2024 2:10 AM EDT [facility] Comment: BNP may be increased in the presence of sacubitril/valsartan (Entresto). Please interpret accordingly. Plasma 12/20/2024 12:5 6 AM EDT 12/20/2024 1:10 AM EDT Narrative [facility] - 12/20/2024 2:10 AM EDT The presence of high concentrations of biotin may cause falsely lowered BNP results. Biotin interference may be seen if an individual is taking >5 mg biotin per day. Interpret BNP results in the context of the patient's clinical presentation. Kathryn LEWIS LAB BLOOD ORDERABLES Final Resul t Performing Organization Address [facility] de Phone Number [facility] [address] [facility] [place] [address], [facility] * ECG for indication of syncope (12/20/2024 12:50 AM EDT) 12/20/2024 12:5 0 AM EDT Narrative MUSE - 12/20/2024 8:16 AM EDT Ventricular Rate: 67 BPM Atrial Rate: 67 BPM P-R Interval: 154 ms QRS Duration: 88 ms QT: 394 ms QTc: 416 ms P [place]: 11 degrees R [place]: -4 degrees T [place]: -5 degrees Diagnosis Line: ^ INTERPRETATION NOT AVAILABLE--ECG READ IN ER ^ Confirmed by PHYSICIAN, ER ([id number]), photo editor Le Simon ([id number]) on 12/20/2024 8:16:14 AM Kathryn Talley PA ECG ORDERABLES Final Result MUSE from Last 3 Months Insurance [facility] [place] [place] Address: [facility] [id number] [place] [address] Care Teams Painter Spray Relationship Specialty [place] [address] [place] [address] [place] [address] PCP - General Family Medicine 09/24/24
--- OUTSIDE RECORDS SUMMARY | 2025-03-11 13:13 | XMS_ITS | Clinical Summary ---
Author Organization [facility] Address [address] [place] [address] Phone Care Team Providers Care Senior Account Manager Name Role Phone Louis PHILLIPS, Tann Unavailable Conditions or Problems No information available. Medications No information available. Medications Administered No information available. Allergies, Adverse Reactions, Alerts No information available. Results No information available. Plan of Care No information available. Procedures No information available. Vital Signs No information available. Immunizations No information available. Advance Directives No information available.
--- OUTSIDE RECORDS SUMMARY | 2025-03-11 13:13 | XMS_ITS | Clinical Summary ---
Author Organization [facility] Address [address] [place] [address] Care Team Providers Care Barometers Calibrator Name Role Phone Pcp, No Primary Care Provider Unavailabl e Bren Lira DMD Unavailable Eugene Holloway Unavailable Unavailabl e Allergies No known active allergies Medications HYDROcodone-acetami nophen ([place]) 5-325 MG tabletIndications:P ain,Back pain Take 1 [...] 01/15/2025 7:30 AM EDT Office Visit [facility] [address] [place] [phone] Garrison Galindo, DMD Oral mucosal lesion (Primary Dx) 01/15/2025 Travel 12/26/2024 2:30 PM EDT Evaluation [facility] [address] [place] [phone] Akin Shay, DMD Oral mucosal lesion (Primary Dx) 12/26/2024 Travel 12/26/2024 Telephone [facility] [address] [place] [phone] Surgeon Rosas MD 12/25/2024 Telephone [facility] [address] [place] [phone] Surgeon Rosas MD from Last 3 [...] (1 - 3-dose SCD M series) 2010 [id number] Vaccine ( - 2023- season) 2024 11/24/2020, [...] Most Recently Relevant to Health Maintenance Insurance [address] Care Teams Barometers Calibrator Relationship Specialty Start Date End Date Pcp, No [address] [place] [address] PCP - General Family Medicine 09/05/24 Bren Lira, DMD [address] [address] Dentist 09/18/24 Eugene Holloway Dental Student Dental Dining Car Steward 09/18/24
--- OUTSIDE RECORDS SUMMARY | 2025-03-11 13:13 | XMS_ITS | Encounter Summary ---
Author Organization [facility] Address [address] [place] [address] Care Team Providers Care Gas Distribution And Emergency Clerk Name Role Phone Pcp, Paulina Primary Care [...] documented as of this encounter Care Teams Gas Distribution And Emergency Clerk Relationship Specialty Start Date End Date Pcp, No [address] [place] [address] PCP - General Family Medicine 09/05/24 Bren Lira DMD [address] [address] Dentist 09/18/24 Eugene Holloway Dental Student Dental Harmonic Analyst 09/18/24 documented as of this encounter
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
== END 2025-03-10 23:59 | disposition home or self-care (01) ==
LOC: LAB.DROPOF 03-11 13:10
PROVIDERS: PCP Nurse Practitioner; Visit Provider Nurse Practitioner
DX: B35.1 Tinea unguium (principal); L57.0 Actinic keratosis; L60.8 Other nail disorders; L60.0 Ingrowing nail
CPT/HCPCS: 87101; 87220

== ENCOUNTER 2025-03-17 10:50 | Outpatient (CLI) | payer OTHER, SELFPAY ==
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
[2025-03-17 15:34] LABS: Alanine Aminotransferase 19 U/L (12-78); Albumin Level 4.2 g/dl (3.5-5.0); Albumin/Globulin Ratio 1.6 (1.1-1.8); Alkaline Phosphatase 65 U/L (38-126); Anion Gap 14.3 mEq/L (5-15); Aspartate Amino Transferase 26 U/L (14-36); Bilirubin,Total 0.9 mg/dl (0.2-1.3); Blood Urea Nitrogen 15 mg/dl (7-17); Calcium 9.6 mg/dl (8.4-10.2); Carbon Dioxide 30 mmol/L (22.0-30.0); Chloride 96 mmol/L (98-107); Creatinine,Serum 0.90 mg/dl (0.52-1.04); Estimated Glomerular Filt Rate 69 ml/min (>60); GFR (African American) 83 ML/MIN (>60); Globulin 2.7 g/dL (1.3-3.2); Glucose 109 mg/dl (74-100); Potassium 3.3 mmoL/L (3.5-5.1); Sodium 137 mmol/L (136-145); Total Protein,Serum 6.9 g/dl (6.3-8.2)
[2025-03-19 09:43] LABS: Measles Antibodies, IgG 85.3 AU/mL (Immune >16.4); Mumps Abs, IgG 75.5 AU/mL (Immune >10.9); Rubella Antibodies, IgG 1.84 index (Immune >0.99)
--- OUTSIDE RECORDS SUMMARY | 2025-03-19 13:09 | XMS_ITS | Clinical Summary ---
Author Organization [facility] Address [address] [place] [address] Phone Care Team Providers Care Chain Testing Machine Operator Name Role Phone Louis PHILLIPS, Tann Unavailable [...]
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
--- OUTSIDE RECORDS SUMMARY | 2025-03-19 13:09 | XMS_ITS | Clinical Summary ---
Author Organization [facility] Address [address] [place] [address] Care Team Providers Care Fruit Bar Maker Name Role Phone Ryan Love MD Primary Care Provider [phone] Source Comments This information has been disclosed [...] therelease of HIV test results or diagnoses. [id number] Health Allergies Active Allergy Reactions Criticality [...] Encounters Date Type Department Care Team Description 03/19/2025 Orders Only [facility] [address] [place] [address] Garrison Newman MD Neoplasm of uncertain behavior of skin (Primary Dx) 02/27/2025 Orders Only [facility] [address] [place] [address] Georgina Saxena CNP Neoplasm of uncertain behavior of skin (Primary Dx) 01/09/2025 3:53 AM EDT - 01/09/2025 7:21 AM EDT Emergency [facility] Emergency Department [address] [place] [address] Franki Pedroza MD Abscess (Primary Dx) Discharge Disposition: Home or Self Care WITHOUT Home Care Services 01/08/2025 Travel 12/23/2024 9:46 PM EDT - 12/24/2024 12:31 AM EDT Emergency [facility] Emergency Department [address] [place] [phone] Discharge Disposition: ED Dismiss - Left Before Treatment 12/23/2024 Travel 12/20/2024 Travel 12/19/2024 11:59 PM EDT - 12/20/2024 2:59 AM EDT Emergency [facility] Emergency Department [address] [place] [phone] Discharge Disposition: ED Dismiss - Left Before [...] Mammogram (MyChart) 2023 Immunization: COVID-19 ( season) 2025 11/24/2020, 10/27/2020 Immunization: Influenza (MyC loiue) (#1) 2025 03/13/2024, 04/28/2023, 05/09/2021 Immunization: Pneumococcal Completed 08/21/2023 Hepatitis C Screening (MyChart) Completed 5 Procedures Procedure Name Priority Date/Time Associated Diagnosis [...] POWERPATH - 02/26/2025 12:00 AM EDT CASE: [id number] PATIENT: JULIANA ROSSI Clinical Impression: A) B) DN. Site(s): A. R upper back B. R upper back lat CPT Code(s): 57072 X 2 Diagnosis: A. R upper back [...] Pathologist signing this report is located at [facility], [address] [place] [address], [address], , CLIA ID: [id number] [facility] DERM PROCEDURE ORDERABLES Sandie dias Result POWERPATH * Incision/Drainage (01/09/2025 7:42 AM [...] Glucose Monitoring Device (01/09/2025 12:34 AM EDT) [facility] POC Glucose Monitoring Device 113(H) 70 - 100 mg/dL 01/09/2025 12:35 AM EDT [facility] Blood 01/09/2025 12:3 4 AM EDT 01/09/2025 12:35 AM EDT Ryan Love MD POINT OF CARE TEST ORDERABLES F inal Result [facility] [address] [facility]. [address] * HCG Urine, Qualitative (12/23/2024 10:28 PM EDT) [facility] hCG Qualitative -Clinitek Negative Negative 12/23/2024 10:42 PM EDT [facility] Urine 12/23/2024 10:2 8 PM EDT 12/23/2024 10:33 PM EDT Amisha LEWIS URINE ORDERABLES Final Result Performing Organization Address [facility] Co de Phone Number [facility] [address] [facility]. [address] * High Sensitivity Troponin (12/23/2024 10:28 PM EDT) Only the most recent of2 resultswithin the time period is included. [facility] High Sensitivity Troponin 3 0 - 14 ng/L 12/23/2024 10:58 PM EDT [facility] Serum 12/23/2024 10:2 8 PM EDT 12/23/2024 10:33 PM EDT Amisha LEWIS LAB BLOOD ORDERABLES Final Resul t Performing Organization Address City/[facility]/ZIP Co de Phone Number [facility] [address] [facility]. [address] * (ABNORMAL) Urinalysis, Microscopic (12/23/2024 10:28 PM EDT) RBC, UA 3 0 - 3 /HPF 12/23/2024 10:59 PM EDT [facility] WBC, UA >100(H) 0 - 5 /HPF 12/23/2024 10:59 PM EDT [facility] WBC Clumps, UA Moderate(A ) None Seen /HPF 12/23/2024 10:59 PM EDT [facility] Squam Epithel, UA 1 0 - 5 /HPF 12/23/2024 10:59 PM EDT [facility] Trans Epithel, UA 2 0 - 5 /HPF 12/23/2024 10:59 PM EDT [facility] Bacteria, UA Moderate(A ) None Seen /HPF 12/23/2024 10:59 PM EDT [facility] Hyaline Casts, UA 1 0 - 2 /LPF 12/23/2024 10:59 PM EDT [facility] Urine 12/23/2024 10:2 8 PM EDT 12/23/2024 10:35 PM EDT us Amisha LEWIS URINE ORDERABLES Final Result [facility] [address] [id number] * (ABNORMAL) Urinalysis-Macroscopic w/Rfx to Microsco (12/23/2024 10:28 PM EDT) Color, UA Yellow Yellow,Straw 12/23/2024 10:59 PM EDT [facility] Clarity, UA Cloudy(A) Clear 12/23/2024 10:59 PM EDT [facility] Specific [place], UA 1.015 1.005 - 1.035 12/23/2024 10:59 PM EDT [facility] pH, UA 6.0 5.0 - 8.0 12/23/2024 10:59 PM EDT [facility] Protein, UA Negative Negative mg/dL 12/23/2024 10:59 PM EDT [facility] Glucose, UA Negative Negative mg/dL 12/23/2024 10:59 PM EDT [facility] Ketones, UA Negative Negative mg/dL 12/23/2024 10:59 PM EDT [facility] Bilirubin, UA Negative Negative 12/23/2024 10:59 PM EDT [facility] Blood, UA Trace-intact (A) Negative 12/23/2024 10:59 PM EDT [facility] Nitrite, UA Positive(A) Negative 12/23/2024 10:59 PM EDT [facility] Urobilinogen, UA 0.2 E.U./dL 0.2 - 1.0 EU/dL 12/23/2024 10:59 PM EDT [facility] Leukocyte Esterase, UA Moderate(A) Negative 12/23/2024 10:59 PM EDT [facility] Urine 12/23/2024 10:2 8 PM EDT 12/23/2024 10:33 PM EDT us Amisha LEWIS URINE ORDERABLES Final Result [facility] [address] [id number] * Hepatic Function Panel (12/23/2024 10:28 PM EDT) Only the most recent of2 resultswithin the time period is included. Total Bilirubin 0.5 0.0 - 1.5 mg/dL 12/23/2024 10:52 PM EDT [facility] Bilirubin, Direct 0.3 0.0 - 0.4 mg/dL 12/23/2024 10:52 PM EDT [facility] AST 18 13 - 39 U/L 12/23/2024 10:52 PM EDT [facility] ALT 17 7 - 52 U/L 12/23/2024 10:52 PM EDT [facility] Alkaline Phosphatase 47 36 - 125 U/L 12/23/2024 10:52 PM EDT [facility] Total Protein 6.9 6.4 - 8.9 g/dL 12/23/2024 10:52 PM EDT [facility] Albumin 4.0 3.5 - 5.7 g/dL 12/23/2024 10:52 PM EDT [facility] Bilirubin, Indirect 0.2 0.0 - 1.1 mg/dL 12/23/2024 10:52 PM EDT [facility] Plasma 12/23/2024 10:2 8 PM EDT 12/23/2024 10:33 PM EDT Amisha LEWIS LAB BLOOD ORDERABLES Final Resul t [facility] [address] [place] [address], [facility] * Differential (12/23/2024 10:28 PM EDT) Only the most recent of2 resultswithin the time period is included. Neutrophils Relative 54.5 40.0 - 80.0 % 12/23/2024 10:54 PM EDT [facility] Lymphocytes Relative 31.9 15.0 - 45.0 % 12/23/2024 10:54 PM EDT [facility] Monocytes Relative 7.9 0.0 - 12.0 % 12/23/2024 10:54 PM EDT [facility] Eosinophils Relative 4.8 0.0 - 8.0 % 12/23/2024 10:54 PM EDT [facility] Basophils Relative 0.9 0.0 - 1.0 % 12/23/2024 10:54 PM EDT [facility] nRBC 0 0 - 0 /100 WBC 12/23/2024 10:54 PM EDT [facility] Neutrophils Absolute 4,197 1,520 - 8,640 /uL 12/23/2024 10:54 PM EDT [facility] Lymphocytes Absolute 2,456 570 - 4,860 /uL 12/23/2024 10:54 PM EDT [facility] Monocytes Absolute 608 0 - 1,296 /uL 12/23/2024 10:54 PM EDT [facility] Eosinophils Absolute 370 0 - 864 /uL 12/23/2024 10:54 PM EDT [facility] Basophils Absolute 69 0 - 108 /uL 12/23/2024 10:54 PM EDT [facility] Whole Blood 12/23/2024 10:2 8 PM EDT 12/23/2024 10:46 PM EDT us Amisha LEWIS LAB BLOOD ORDERABLES Final Resul t [facility] [address] * (ABNORMAL) CBC (12/23/2024 10:28 PM EDT) Only the most recent of2 resultswithin the time period is included. WBC 7.7 3.8 - 10.8 10E3/uL 12/23/2024 10:54 PM EDT [facility] RBC 3.81 3.80 - 5.10 10E6/uL 12/23/2024 10:54 PM EDT [facility] Hemoglobin 12.6 11.7 - 15.5 g/dL 12/23/2024 10:54 PM EDT [facility] Hematocrit 37.3 35.0 - 45.0 % 12/23/2024 10:54 PM EDT [facility] MCV 98.1 80.0 - 100.0 fL 12/23/2024 10:54 PM EDT [facility] MCH 33.1(H) 27.0 - 33.0 pg 12/23/2024 10:54 PM EDT [facility] MCHC 33.8 32.0 - 36.0 g/dL 12/23/2024 10:54 PM EDT [facility] RDW 13.3 11.0 - 15.0 % 12/23/2024 10:54 PM EDT [facility] Platelets 247 140 - 400 10E3/uL 12/23/2024 10:54 PM EDT [facility] MPV 7.6 7.5 - 11.5 fL 12/23/2024 10:54 PM EDT [facility] Whole Blood 12/23/2024 10:2 8 PM EDT 12/23/2024 10:46 PM EDT Amisha LEWIS LAB BLOOD ORDERABLES Final Resul t [facility] [address] * (ABNORMAL) Basic metabolic panel (12/23/2024 10:28 PM EDT) Only the most recent of2 resultswithin the time period is included. Sodium 140 133 - 146 mmol/L 12/23/2024 10:52 PM EDT [facility] Potassium 3.8 3.5 - 5.3 mmol/L 12/23/2024 10:52 PM EDT [facility] Chloride 110 98 - 110 mmol/L 12/23/2024 10:52 PM EDT [facility] CO2 24 21 - 33 mmol/L 12/23/2024 10:52 PM EDT [facility] Anion Gap 6 3 - 16 mmol/L 12/23/2024 10:52 PM EDT [facility] BUN 6(L) 7 - 25 mg/dL 12/23/2024 10:52 PM EDT [facility] Creatinine 0.88 0.60 - 1.30 mg/dL 12/23/2024 10:52 PM EDT [facility] Glucose 124(H) 70 - 100 mg/dL 12/23/2024 10:52 PM EDT [facility] Calcium 8.7 8.6 - 10.3 mg/dL 12/23/2024 10:52 PM EDT [facility] Osmolality, Calculated 289 278 - 305 mOsm/kg 12/23/2024 10:52 PM EDT [facility] EGFR 85 12/23/2024 10:52 PM EDT [facility] Comment:As of 2021, the [...] LEWIS LAB BLOOD ORDERABLES Final Resul t [facility] [address] [place] [address], [facility] * X-ray Chest PA and Lateral [...] Ab Nonreactive Nonreactive 12/20/2024 2:07 AM EDT HEALTH LAB Comment:Health Department no tified in accordance with reportable infectious disease guidelines. HCVAB Number 0.05 0.00 - 0.79 S/CO 12/20/2024 2:07 AM EDT [facility] Serum 12/20/2024 12:5 6 AM EDT 12/20/2024 1:08 AM EDT Kathryn LEWIS LAB BLOOD ORDERABLES Final Resul t Performing Organization Address [facility] de Phone Number [facility] [address] [facility]. [address] * BNP (12/20/2024 12:56 AM EDT) BNP 20 0 - 100 pg/mL 12/20/2024 2:10 AM EDT [facility] Comment: BNP may be increased in the presence of sacubitril/valsartan (Entresto). Please interpret accordingly. Plasma 12/20/2024 12:5 6 AM EDT 12/20/2024 1:10 AM EDT Narrative [facility] - 12/20/2024 2:10 AM EDT The presence of high concentrations of biotin may cause falsely lowered BNP results. Biotin interference may be seen if an individual is taking >5 mg biotin per day. Interpret BNP results in the context of the patient's clinical presentation. Kathryn LEWIS LAB BLOOD ORDERABLES Final Resul t Performing Organization Address [facility] de Phone Number [facility] [address] [facility] * ECG for indication of syncope (12/20/2024 12:50 AM EDT) 12/20/2024 12:5 0 AM EDT Narrative MUSE - 12/20/2024 8:16 AM EDT Ventricular Rate: 67 BPM Atrial Rate: 67 BPM P-R Interval: 154 ms QRS Duration: 88 ms QT: 394 ms QTc: 416 ms P [place]: 11 degrees R [place]: -4 degrees T [place]: -5 degrees Diagnosis Line: ^ INTERPRETATION NOT AVAILABLE--ECG READ IN ER ^ Confirmed by PHYSICIAN, ER ([id number]), editor managing director Le Simon ([id number]) on 12/20/2024 8:16:14 AM us Kathryn LEWIS ECG ORDERABLES Final Result MUSE from Last 3 Months [place] [facility] [place] Address: [facility] [id number] [place] [address] Care Teams Fruit Bar Maker Relationship Specialty Start Date End Date Ryan Love MD [address] [place] [address] PCP - General Family Medicine 09/24/24
--- OUTSIDE RECORDS SUMMARY | 2025-03-19 13:09 | XMS_ITS | Encounter Summary ---
Author Organization [facility] Address [address] [place] [address] Care Team Providers Care Molding And Trim Installer Name Role Phone Pcp, No Primary Care Provider Unavailabl e Bren Lira DMD Unavailable [phone] Eugene Holloway Unavailable Unavailabl e Reason for Referral * Consultation (Routine) - Authorized Specialty Diagnoses / Procedures Referred By Octavio t Referred To Contact Neurosurgery Diagnoses Thoracic, thoracolumbar and lumbosacral intervertebral disc disorder Ryan Love MD [address] [place] [address] Phone: tel: fax: Referral ID Status Reason Start Date Expiration Date Visits Requested Visits Authorized [id number] Authorized Specialty Services Required 02/04/2024 08/05/2025 1 1 Encounter Details Date Type Department Care Team (Latest Contact Info) Description 02/04/2024 Community [facility] [address] [place] [address] Ryan Love MD [address] [place] [address] Thoracic, thoracolumbar and lumbosacral intervertebral disc disorder [...] Primary documented in this encounter Care Teams Molding And Trim Installer Relationship Specialty Start Date End Date Pcp, No [address] [place] [address] PCP - General Family Medicine 09/05/24 Bren Lira, DMD [address] [address] Dentist 09/18/24 Eugene Holloway Dental Student Dental Rotary Engraver 09/18/24 documented as of this encounter
--- OUTSIDE RECORDS SUMMARY | 2025-03-19 13:09 | XMS_ITS | Clinical Summary ---
Author Organization [facility] Address [address] [place] [address] Care Team Providers Care Photographic Supervisor Name Role Phone Pcp, No Primary Care Provider Unavailabl e Bren Lira DMD Unavailable Eugene Holloway Unavailable Unavailabl e Allergies No known active allergies Medications HYDROcodone-acetami nophen (Avalon) 5-325 MG tabletIndications:P ain,Back pain Take 1 [...] 01/15/2025 7:30 AM EDT Office Visit [facility] [address] [place] [phone] Garrison Galindo, DMD Oral mucosal lesion (Primary Dx) 01/15/2025 Travel 12/26/2024 2:30 PM EDT Evaluation [facility] [address] [place] [phone] Akin Shay, DMD Oral mucosal lesion (Primary Dx) 12/26/2024 Travel 12/26/2024 Telephone [facility] [address] [place] [phone] Surgeon Rosas MD 12/25/2024 Telephone [facility] [address] [place] [phone] Surgeon Rosas MD from Last 3 [...] (1 - 3-dose SCD M series) 2010 [id number] Vaccine ( - 2023- season) 2024 11/24/2020, [...] Most Recently Relevant to Health Maintenance Insurance [address] Care Teams Photographic Supervisor Relationship Specialty Start Date End Date Pcp, No [address] [place] [address] PCP - General Family Medicine 09/05/24 Bren Lira, DMD [address] [phone] Dentist 09/18/24 Eugene Holloway Dental Student Dental Order Manager 09/18/24
--- OUTSIDE RECORDS SUMMARY | 2025-03-19 13:09 | XMS_ITS | Encounter Summary ---
Author Organization [facility] Address [facility] [place] [address] Care Team Providers Care Tool Builder Name Role Phone Ryan Love MD Primary Care Provider Source Comments This information has been disclosed [...] release of HIV test results or diagnoses. [id number] Health Encounter Details Date Type Department Care Team (Late st Contact Info) Description 02/27/2025 Orders Only [facility] [address] [place] [address] Georgina Saxena, [facility] [address] [phone] Neoplasm of uncertain behavior of skin (Primary [...] POWERPATH - 02/26/2025 12:00 AM EDT CASE: [id number] PATIENT: JULIANA ROSSI Clinical Impression: A) B) DN. Site(s): A. R upper back B. R upper back lat CPT Code(s): 31220 X 2 Diagnosis: A. R upper back [...] Pathologist signing this report is located at [facility], [address] [place] [address], [address], , CLIA ID: [id number] [facility] DERM PROCEDURE ORDERABLES Sandie l Result ABDELRAHMANPATH documented in this encounter Visit Diagnoses Diagnosis Neoplasm of uncertain behavior of skin- Primary documented in this encounter Care Teams Tool Builder Relationship Specialty Start Date End Date Ryan Love MD [address] [place] [address] PCP - General Family Medicine 09/24/24 documented as of this encounter
--- OUTSIDE RECORDS SUMMARY | 2025-03-19 13:09 | XMS_ITS | Encounter Summary ---
Author Organization [facility] Address [facility] [place] [address] Care Team Providers Care Car And Yard Supervisor Name Role Phone Ryan Love MD Primary Care Provider [phone] Source Comments This information has been disclosed [...] release of HIV test results or diagnoses. [id number] Health Encounter Details Date Type Department Care Team (Late st Contact Info) Description 03/19/2025 Orders Only [facility] [address] [place] [address] [place] [address] [phone] Neoplasm of uncertain behavior of skin (Primary [...] of this encounter Plan of Treatment Scheduled Orders Name Type Priority Associated Diagnoses Orde r Schedule Skin / nail biopsy Pathology and Cytology Routine Neoplasm of uncertain behavior of skin Ordered: 03/19/2025 documented as of this encounter Visit Diagnoses Diagnosis Neoplasm of uncertain behavior of skin- Primary documented in this encounter Care Teams Car And Yard Supervisor Relationship Specialty Start Date End Date Ryan Love MD [address] [place] [address] PCP - General Family Medicine 09/24/24 documented as of this encounter
[2025-03-19 17:13] LABS: Varicella-Zoster Ab, IgM <0.91 index (0.00-0.90)
== END 2025-03-17 23:59 | disposition home or self-care (01) ==
LOC: LAB.DROPOF 03-19 13:06
PROVIDERS: PCP Nurse Practitioner Acute Care; Visit Provider Nurse Practitioner Acute Care
DX: Z11.59 Encounter for screening for other viral diseases (principal); Z01.84 Encounter for antibody response examination; F90.9 Attention-deficit hyperactivity disorder, unspecified type; F60.3 Borderline personality disorder
CPT/HCPCS: 80053; 80178; 86706; 86735; 86762; 86765; 86787

== ENCOUNTER 2025-06-17 08:14 | Outpatient (CLI) | payer MEDICAID, SELFPAY ==
--- OUTSIDE RECORDS SUMMARY | 2025-04-29 07:04 | XMS_ITS | Encounter Summary ---
Author Organization [place] [address] Care Team Providers Care Dopeman Name Role Phone Ryan Love MD Primary Care Provider Reason for Referral * Consultation (Routine) - Pending Review Specialty Diagnoses / Procedures Referred By Contac t Referred To Contact Neurosurgery Diagnoses Intractable back pain Procedures CO OFFICE/OUTPATIENT NEW MODERATE MDM 45 MINUTES Eric Gerardo MD [address] [phone] Phone: tel: fax: Referral ID Status Reason Start Date Expiration Date V isits Requested Visits Authorized [id number] Pending Review 05/02/2025 05/02/2026 1 1 Reason for Visit * Reason Comments Back Pain woke up confused 2 F ridays ago and fell, hurt low back, pain is getting worse. Has lost control of bowel and bladder * Auth/Cert/Inpt Specialty Diagnoses / Procedures Referred By Contac t Referred To Contact Diagnoses Midline low back pain without sciatica, unspecified chronicity Referral ID Status Reason Start Date Expiration Date Visits Re quested Visits Authorized [id number] 1 1 Encounter Details Date Type Department Care Team (Latest Contact Info) Description 04/29/2025 8:04 AM EDT - 05/02/2025 3:33 PM EDT Hospital Encounter [facility] [address] [place] [address] Shawn Galindo MD [address] [place] [phone] Eric Gerardo MD [address] [place] [id number] Midline low back pain without sciatica, unspecified chronicity (Primary Dx); Difficulty walking; Urinary incontinence, unspecified type; Incontinence of feces, unspecified fecal incontinence type; Homeless; Intractable back pain Discharge Disposition: Home or Self Care Social History Tobacco Use Types Packs/Day Years Used Date Smoking Tobacco: Every Day Cigarettes 0.5 28.5 Started: 12/25/1996 Smokeless Tobacco: Never Alcohol Use Standard Drinks/Week Comments Yes 0 (1 standard drink = 0.6 oz pur e alcohol) occ PHQ-2 Answer Date Recorded PHQ-2 Total Score 4 04/29/2025 PRAPARE - Transportation Answer Date Re corded In the past 12 months, has l ack of transportation kept you from medical appointments or from getting medications? No 07/18 In the past 12 months, has l ack of transportation kept you from meetings, work, or from getting things needed for daily living? No 08/15/2021 Overall Financial Resource Strain (CARDIA) Answe r Date Recorded How hard is it for you to pa y for the very basics like food, housing, medical care, and heating? Very hard 04/29/2025 [facility] - Occupational Stress Questionnaire Answer Date Recorded Do you feel stress - tense, restless, nervous, or anxious, or unable to sleep at night because your mind is troubled all the time - these days? Very much 04/29/2025 Exercise Vital Sign Answer Date Recorde d On average, how many days pe r week do you engage in moderate to strenuous exercise (like a brisk walk)? 0 days 04/29/2025 On average, how many minutes do you engage in exercise at this level? 0 min 04/29/2025 Hunger Vital Sign Answer Date Recorded Within the past 12 months, y ou worried that your food would run out before you got the money to buy more. Often true 04/29/20 25 Within the past 12 months, t he food you bought just didn't last and you didn't have money to get more. Often true 04/29/2025 [facility] Utilities Answer Date Recorded In the past 12 months has th e electric, gas, oil, or water company threatened to shut off services in your home? No 04/29/2025 [facility] IP Transportation Answer D ate Recorded In the past 12 months, has l ack of reliable transportation kept you from medical appointments, meetings, work or from getting things needed for daily living? Yes 04/29/2025 Comments No Sex and Gender Information Value Date Recorded Sex Assigned at Not on file Legal Sex Female 8:34 AM EDT Gender Identity Not on file Sexual Orientation Not on file documented as of this encounter Last Filed Vital Signs Vital Sign Reading Time Taken Comments Blood Pressure 111/58 05/02/2025 7:53 AM EDT Pulse 70 05/02/2025 8:42 AM EDT Temperature 36.8 C (98.2 F) 05/02/2025 7:53 AM EDT Respiratory Rate 18 05/02/2025 8:42 AM EDT Oxygen Saturation 95% 05/02/2025 8:40 AM EDT Inhaled Oxygen Concentration - - Weight 139.3 kg (307 lb) 04/29/2025 4:15 PM EDT Height 180.3 cm (5' 11 ) 04/29/2025 4:15 PM EDT Body Mass Index 42.82 04/29/2025 4:15 PM EDT documented in this encounter Functional Status * Is the person deaf or does he/she have serious difficulty hearing? Answer Date of Assessment Author No 08/17/2021 12:27 PM EST Selwyn Harrison RN * Is the person blind or [...] Assessment Author No 08/17/2021 12:27 PM EST See, Selwyn Bravo RN * Question Answer Date of Assessment Author Little interest or pleasure in doing things 2 04/29/2025 3:35 PM EDT Hunter Gutierrez RN Feeling down, depressed, or hopeless 2 04/29/2025 3:35 PM EDT Hunter Gutierrez RN PHQ-2 Total Score 4 04/29/2025 3:35 PM EDT Hunter Gutierrez RN Trouble falling or staying asleep, or sleeping too much 2 04/29/2025 3:35 PM EDT Hunter Gutiérrez RN Feeling tired or having gomez le energy 2 04/29/2025 3:35 PM DANIELET Hunter Gutierrez RN Poor appetite or overeating 2 04/29/2025 3: 35 PM DANIELET Hunter Gutierrez RN Feeling bad about yourself - or that you are a failure or have let yourself or your family down 0 04/29/2025 3:35 PM DANIELET Hunter Gutierrez RN Trouble concentrating on things, such as reading the newspaper or watching television 0 04/29/2025 3:35 PM Hunter Vidales RN Moving or speaking so slowly that other people could have noticed. Or the opposite - being so fidgety or restless that you have been moving around a lot more than usual 0 04/29/2025 3:35 PM DANIELET Hunter Gutierrez RN Thoughts that you would be better off , or of hurting yourself in some way 0 04/29/2025 3:35 PM EDT Paige Gutierrez RN PHQ-9 Total Score 10 04/29/2025 3:35 PM DANIELET Hunter Gutierrez RN * PHQ-2 Total Score Answer Date of Assessment Author 4 04/29/2025 3:35 PM EDHunter Suarez RN documented as of this encounter Mental Status * Because of a physical, mental or emotional condition, does this person have serious difficulty concentrating, remembering or making decisions? Answer Entry Date Author No 08/17/2021 12:27 PM EST Selwyn Harrison RN documented in this encounter Discharge Summaries * Eric Gerardo MD - 05/02/2025 1:00 PM EDT [facility] Discharge Summary Patient Name: Juliana Olguin : 1985 Admit Date: 04/29/2025 Discharge Date: 05/02/2025 Admitting Physician: Eric Gerardo MD Discharging Physician: Eric Gerardo MD Reason for Hospitalization: Active Hospital Problems Bilateral leg weakness Bilateral leg pain Hypertension *Midline low back pain without sciatica, unspecified chronicity Tobacco abuse Anxiety ADHD (attention deficit hyperactivity disorder) Bipolar 2 disorder (HCC) Brief Hospital Summary: 39-year-old female with multiple medical comorbidities admitted for intractable lower back pain with right-sided leg weakness. MRI of L-spine did not show any acute abnormality. MRI of C and T-spine was obtained as well and they did not show any acute abnormality. Patient did improve clinically during hospital stay. Neurology was consulted and recommended outpatient follow- up. Patient was agreeable to discharge home. She was discharged home in stable condition. Hospital problems addressed during this admission as below: Assessment & Plan Midline low back pain without sciatica, unspecified chronicity - MRI of C, T and L-spine unremarkable. Due to persistent weakness, neurology consulted. DC IV painmedications. Bipolar 2 disorder (HCC) ADHD (attention deficit hyperactivity disorder) Anxiety - Home medications resumed Tobacco abuse - Nicotine patch ordered. Hypertension - Blood pressure trend better today. Bumex resumed. Continue Aldactone. Labs and imaging follow-up needed: Consultants: Treatment Team: Consulting Physician: Silverio Whyte MD Consulting Physician: Georgina Carballo, DO Discharge Exam: Vitals: 05/02/25 0842 BP: Pulse: 70 Resp: 18 Temp: SpO2: Gen: awake and alert, no acute distress CV: S1S2 normal, no murmurs Chest: CTA, BLAE, no rales or wheezing Abdomen: Soft, BS present, NT, ND, no palpable organomegaly Ext: no edema Neuro: AAOx4, no focal deficits Correct Full Discharge Med List: Medication List START taking these medications oxyCODONE 5 mg Tab Dose: 5 mg Qty: 9 Tablet Refills: 0 Commonly known as: ROXICODONE 5 mg, Oral, EVERY 6 HOURS PRN CONTINUE taking these medications albuterol 2.5 mg /3 mL (0.083 %) Nebu Dose: 2.5 mg Refills: 0 Commonly known as: PROVENTIL aspirin 81 mg Chew Dose: 81 mg Refills: 0 azelastine 137 mcg (0.1 %) [place] Dose: 274 mcg Refills: 0 Commonly known as: ASTELIN baclofen 10 mg Tab Dose: 10 mg Refills: 0 Commonly known as: LIORESAL budesonide-formoteroL 160-4.5 mcg/actuation Hfaa Dose: 2 Puff Refills: 0 Commonly known as: SYMBICORT bumetanide 2 mg Tab Dose: 2 mg Refills: 0 Commonly known as: BUMEX cetirizine 10 mg Tab Dose: 10 mg Refills: 0 Commonly known as: ZyrTEC ketoconazole 2 % Crea Refills: 0 Commonly known as: NIZORAL LEVOthyroxine 112 mcg Tab Dose: 112 mcg Refills: 0 Commonly known as: SYNTHROID lithium 450 mg Tbsr Dose: 450 mg Refills: 0 Commonly known as: LITHOBID methylphenidate HCl 36 mg Tr24 Dose: 36 mg Refills: 0 montelukast 10 mg Tab Refills: 0 Commonly known as: SINGULAIR MOVANTIK 25 mg Tab Dose: 25 mg Refills: 0 Generic drug: naloxegoL oxybutynin 5 mg Tab Dose: 5 mg Refills: 0 Commonly known as: DITROPAN prochlorperazine 10 mg Tab Dose: 10 mg Refills: 0 Commonly known as: COMPAZINE QUEtiapine 100 mg Tab Dose: 100 mg Refills: 0 Commonly known as: SEROquel rosuvastatin 20 mg Tab Dose: 20 mg Refills: 0 Commonly known as: CRESTOR spironolactone 100 mg Tab Dose: 100 mg Refills: 0 Commonly known as: ALDACTONE vortioxetine 10 mg tablet Dose: 10 mg Refills: 0 Commonly known as: TRINTELLIX STOP taking these medications HYDROcodone-acetaminophen 5-325 mg Tab Commonly known as: NORCO norgestimate-ethinyl estradioL 0.25-0.035 mg Tab Commonly known as: ORTHO-CYCLEN OXcarbazepine 300 mg Tab Commonly known as: TRILEPTAL Where to Get Your Medications These medications were sent to [facility] [address] [facility] [place] [facility] [address] Hours: Sunday-Sunday 8:00am - 6:30pm Sunday-Sunday 9:00am - 5:00pm oxyCODONE 5 mg Tab Condition at Discharge: good Disposition: Home Follow-up: Ryan Love MD [address] [place] [id number] Schedule an appointment as soon as possible for a visit in 1 week(s) 35 minutes were spent on discharging this patient up to this point - including reviewing any labs, results, imaging, discussing with patient, discussing with any consultants, discussing with family, discharge planning, any care coordination as needed, med rec, summarization of medical records, review and prescription of medications, setting up patient follow up care and outpatient testing, and counseling patient and/or family, which required over 50% of this time. Part of this note was dictated using voice recognition technology and may include unintended spelling errors. Eric Gerardo MD 05/02/2025 documented in this encounter Discharge Instructions * Discharge Instructions* Robyn Youngblood RN - 05/02/2025 1:[address] WHILE TAKING OXICODONE CBC and CMP in the next 3 to 5 days. Monitor blood pressure closely, hold Bumex if it is less than 110. documented in this encounter Medications at Time of Discharge albuterol (PROVENTIL) 2.5 mg /3 mL (0.083 %) Inhl Solution for Nebulization Take 2.5 mg by nebulization as needed for Wheezing. aspirin 81 mg Oral Tablet, Chewable Take 81 mg by mouth daily. azelastine (ASTELIN) 137 mcg (0.1 %) Nasl Helm, Non-Aerosol 274 mcg in each nostril 2 times daily. Use in each nostril as directed baclofen (LIORESAL) 10 mg Oral Tablet Take 10 mg by mouth 2 times daily. budesonide-formot Margo (SYMBICORT) 160-4.5 mcg/actuation Inhl HFA Aerosol Inhaler Inhale 2 Puffs into the lungs 2 times daily. bumetanide (BUMEX) 2 mg Oral Tablet Take 2 mg by mouth daily. cetirizine (ZYRTEC) 10 mg Oral Tablet Take 10 mg by mouth daily. ketoconazole (NIZORAL) 2 % Top Cream Apply topically 2 times daily as needed for Itching. LEVOthyroxine (SYNTHROID) 112 mcg Oral Tablet Take 112 mcg by mouth daily. lithium (LITHOBID) 450 mg Oral Tablet Sustained Release Take 450 mg by mouth 2 times daily. methylphenidate ER 36 mg tablet,extended release 24 hr Take 36 mg by mouth daily. montelukast (SINGULAIR) 10 mg Oral Tablet Take by mouth every evening. naloxegoL (MOVANTIK) 25 mg Oral Tablet Take 25 mg by mouth daily. oxybutynin (DITROPAN) 5 mg Oral Tablet Take 5 mg by mouth 2 times daily. prochlorperazine (COMPAZINE) 10 mg Oral Tablet Take 10 mg by mouth every 6 hours as needed for Nausea or Vomiting. QUEtiapine (SEROQUEL) 100 mg Oral Tablet Take 100 mg by mouth daily at 8pm. rosuvastatin (CRESTOR) 20 mg Oral Tablet Take 20 mg by mouth daily. spironolactone (ALDACTONE) 100 mg Oral Tablet Take 100 mg by mouth daily. vortioxetine (TRINTELLIX) 10 mg Oral tablet Take 10 mg by mouth daily. oxyCODONE (ROXICODONE) 5 mg Oral Tablet Take 1 Tablet by mouth every 6 hours as needed for Acute Pain > 3 Days Medically Necessary (R52) for up to 3 days. 9 Tablet 05/02/2025 3:47 PM EDT 05/02/2025 5 documented as of this encounter Ordered Prescriptions Prescription Sig Dispense Quantity Refills Last Filled Start Date End Date oxyCODONE (ROXICODONE) 5 mg Oral Tablet Take 1 Tablet by mouth every 6 hours as needed for Acute Pain > 3 Days Medically Necessary (R52) for up to 3 days. 9 Tablet 05/02/2025 3:47 PM EDT 05/02/2025 5 documented in this encounter Discharge Disposition Disposition Code Departure Means Destination Comment s Home or Self Care Car Home documented in this encounter Progress Notes * Eric Gerardo MD - 05/02/2025 1:00 PM EDTAssociated Problem(s): Midline low back pain without sciatica, unspecified chronicity - MRI of C, T and L-spine unremarkable. Due to persistent weakness, neurology consulted. DC IV painmedications. * Eric Gerardo MD - 05/02/2025 1:00 PM EDTAssociated Problem(s): Bipolar 2 disorder (HCC) - Home medications resumed * Eric Gerardo MD - 05/02/2025 1:00 PM EDTAssociated Problem(s): ADHD (attention deficit hyperactivity disorder) - Home medications resumed * Eric Gerardo MD - 05/02/2025 1:00 PM EDTAssociated Problem(s): Anxiety - Home medications resumed * Eric Gerardo MD - 05/02/2025 1:00 PM EDTAssociated Problem(s): Tobacco abuse - Nicotine patch ordered. * Eric Gerardo MD - 05/02/2025 1:00 PM EDTAssociated Problem(s): Hypertension - Blood pressure trend better today. Bumex resumed. Continue Aldactone. * Willie Sheppard RN - 05/01/2025 4:32 PM EDT 05/01/25 1630 Ongoing Discharge Planning Evaluation Actual Discharge Plan 05/01/25 Update: Pt is not medically ready for DC at this time. PT is recommending low frequency therapy with a 2 WW. CC provided pt with donated 2 WW. [facility] is unable to accept pt for valery PT becuase of the pt residence location. Pt stated she need help paying for food and housing. CC provided pt with patient toolkit. Plan for a friend to discharge at time of discharge.No other discharge needs identified at this time. CC will continue to follow * Eric Gerardo MD - 05/01/2025 4:10 PM EDTAssociated Problem(s): Midline low back pain without sciatica, unspecified chronicity - MRI of C, T and L-spine unremarkable. Due to persistent weakness, neurology consulted. DC IV painmedications. * Eric Gerardo MD - 05/01/2025 4:10 PM EDTAssociated Problem(s): Bipolar 2 disorder (HCC) - Home medications resumed * Eric Gerardo MD - 05/01/2025 4:10 PM EDTAssociated Problem(s): ADHD (attention deficit hyperactivity disorder) - Home medications resumed * Eric Gerardo MD - 05/01/2025 4:10 PM EDTAssociated Problem(s): Anxiety - Home medications resumed * Eric Gerardo MD - 05/01/2025 4:10 PM EDTAssociated Problem(s): Tobacco abuse - Nicotine patch ordered. * Eric Gerardo MD - 05/01/2025 4:10 PM EDTAssociated Problem(s): Hypertension - Blood pressure trend better today. Bumex resumed. Continue Aldactone. * Eric Gerardo MD - 05/01/2025 4:09 PM EDT Images from the original note were not included. PROGRESS NOTE Medically Ready for Discharge?: No EDOD: 05/01/2025 Not Ready for Discharge because: Pending neurology evaluation Assessment/Plan: Assessment & Plan Midline low back pain without sciatica, unspecified chronicity - MRI of C, T and L-spine unremarkable. Due to persistent weakness, neurology consulted. DC IV painmedications. Bipolar 2 disorder (HCC) ADHD (attention deficit hyperactivity disorder) Anxiety - Home medications resumed Tobacco abuse - Nicotine patch ordered. Hypertension - Blood pressure trend better today. Bumex resumed. Continue Aldactone. Most recent EKG, telemetry tracings, Imaging, and labs independently reviewed and interpreted by josé miguel 05/01/2025 VTE Prophylaxis: Qualifying Pharmacologic Prophylaxis enoxaparin (LOVENOX) injection 40 mg 2 TIMES DAILY Active Hospital Problems Diagnosis *Midline low back pain without sciatica, unspecified chronicity Hypertension Tobacco abuse Anxiety ADHD (attention deficit hyperactivity disorder) Bipolar 2 disorder (HCC) Subjective: Seen and examined in am. No new complaints or concerns voiced. Objective: BP 113/98 (BP Location: Right arm, Patient Position: Semi Fowlers) Pulse 67 Temp 97.4 ??F (36.3??C) (Oral) Resp 16 Ht 5' 11 (1.803 m) Wt (!) 307 lb (139.3 kg) LMP 09/13/2011 SpO2 97% BMI 42.82 kg/m?? I/O last 3 completed shifts: In: 240 [P.O.:240] Out: - Weight: (!) 307 lb (139.3 kg) Constitutional: AAOx3 Cardiovascular: RRR Pulmonary/Chest: CTAB Abdominal: Soft. NT ND Musculoskeletal: No edema. Neurological: AO x 4, bilateral expected weakness Skin: Skin is warm and dry. Labs: Laboratory data and diagnostic testing reviewed 05/01/25. Part of this note was dictated using voice recognition technology and may include unintended spelling errors. Eric Gerardo MD 05/01/2025 4:09 PM * Neli Mariano RN - 05/01/2025 2:48 PM EDT LOW BACK PAIN Pt/ot eval consult neurology,decadron iv qid Dilaudid iv x2, oxycodone po x3 Pt recommends low frequency therapy * Diann Ortiz OT - 05/01/2025 2:05 PM EDT 05/01/25 1352 OT Subjective Note Type Chart Review;Evaluation Patient Room/Unit 392 OT Subjective Comments #1 Pt agreed to session Others Present/Assisting spouse at [facility] Discharge Information Evaluation to serve as discharge summary if no further treatment provided before the facility discharge Admitting Diagnosis fall resulting in back pain Past Med Hx bipolar disorder, asthma, COPD, DM2 Diagnostic Testing MRI Lumbar Spine: Overall mild lumbar spine degenerative changes without high-grade neuroforaminal or canal stenosis. Facet synovitis at L4-L5 is possibly degenerative. MRI T spine: No acute abnormality of the thoracic spine. MRI C spine: Minor discogenic changes without neural co mpression. No cord signal alteration. Clinical Course per Jacqumin-> MRI of lumbar, thoracic and c spine w/o severe pathology. The L5s1 disc has some ddd changes but not indication for surgery at this time Precautions Therapy Precautions Yes Precaution Info Given Yes;To use call light to request assistance with all mobility Home Living/Prior Function Type of Home Other (comment) ([employer]) Home Equipment None Level of Assistance Independent with ADLs ;Independent with functional transfers;Independent with homemaking;Ambulatory in home;Ambulatory in the community Lives With Spouse Fall History 1-3 falls in the last three months ADL Assistance Independent;Bathing;Dressing;Grooming;Feeding;Toileting Vocational (was working at [employer] but recently fired d/t no call no show while being in hospital) Cognition Orientation Intact Arousal Normal Safety Awareness Normal Affect/Ability to cope Normal Command Following Normal Memory Intact Communication Intact Pain Screening PT/OT Patient Currently in Pain Yes Pain Rating 6 Pain Location Back Pain Orientation Lower Pain Intervention(s) Emotional support;Ambulation/Increased activity;Repositioned Observation Presentation Patient resting in bed Posture 5'11 307# Observation Bed alarm Vitals no signs of vital distress UE Assessment LUE Assessment WFL RUE Assessment WFL Coord/Sensation Assessed Grossly Intact/Normal Perception Perception Grossly intact/normal ADL Interventions Where Assessed Sitting on toilet/bedside commode;Standing at sink Grooming Assistance Set up;Washing hands;Stand by;Oral care UE Bathing Assistance Set up;RUE;LUE;Chest;Abdomen LE Bathing Assistance Stand by;R upper leg;L upper leg;L lower leg/foot;R lower leg/foot;[place] area;Buttock UE Dressing Assistance Set up (gown) LE Dressing Assistance Stand by;With verbal cues;Thread LLE into underwear;Thread RLE into underwear;Pull up over hips;Don/doff R sock;Don/doff L sock (cues to sit to doff vs completing in stance) Toileting Stand by assist;Anterior arron care;Posterior arron care;Clothing management Bed Mobility Supine to Sit Supervision;Head of bed elevated;With bed rails Transfers Sit to Stand Stand by assist;Walker Stand to Sit Stand by assistance;Walker Ventilator Mobility Patient mobilized on ventilator No Functional Transfers Toilet Transfers Stand by assist;Contact guard assist Additional Comments 2ww; began w/ CGA and progressed to SBA OT Gait Gait Contact guard assist;Stand by assist Gait Distance (Feet) 20 Feet Assistive Device 2 Wheel walker Additional Comments 2ww; began w/ CGA and progressed to SBA Balance Sitting Balance 4+/5 moves/returns trunkal midpoint 1-2 inches in multiple planes Standing Balance 2+/5 indep, requires 1 UE support PT/OT Mobility Documentation PT/OT Mobility Score 7 Interventions Additional Comments Lengthy discussion in regards to dc locations d/t pt currently staying in [facility]. Exercise Exercise No Functional Status Score (FSS-ICU) Is the patient currently in ICU? No AM PAC: How much help from another person does the patient currently need... putting on and taking off regular lower body clothing? 3 bathing (including washing, rinsing, drying)? 3 toileting, which includes using toilet, bedpan or urinal? 3 putting on and taking off regular upper body clothing? 4 taking care of personal grooming such as brushing teeth? 4 eating meals? 4 AM PAC DAILY ACTIVITY SCORING Daily Activity Raw Score 21 AM PAC Daily Activity CMS 0-100% Functional Percentage 32.79 AM PAC Daily Activity CMS G Code Modifier CJ Education Education To use call light to request assistance with all mobility;Role of Therapy;Patient/Family Education;Safety with mobility;Cues for proper technique;Discharge planning;Up with assistance only;Safe and proper technique with transfers;Educated on benefits of mobility, upright positioning, and g etting out of bed Patient Safety Patient in bed with needs in reach;Bed alarm activated Assessment Assessment Decreased ADL status;Decreased UE strength;Decreased self-care transfers;Decreased high-level ADLs Prognosis Good Rationale for Skilled Therapy Fall Risk;Balance Deficits;Not safe ambulating independently;Needs physical cues for ADL's Goals Patient and/or Family Goal Find somehwere to live. Goals Yes Goal Formulation With Patient Time for Goal Achievement/Duration of Treatment 5-6 visits Additional Goals Additional Goals complete ADLs w/ SPV Additionals Goals 2 complete fxal transfers/mobility w/ SPV Additional Goals 3 educate pt on energy conservation techniques to protect back while engaging in ADLs/IADLs Plan Treatment Interventions ADL retraining;Functional transfer training;UE strengthening/ROM;Patient/Family training OT Frequency 2-5x/wk Recommendation OT Recommendation Low frequency therapy with intensity appropriate for patient need recommended. Time In / Time Out [id number] IP OT Evaluation Minutes 8 IP OT Individual Treatment Minutes 23 The total time spent caring for this patient included but was not limited to medical record review;hands-on treatment;communication and education with patient and/or family/caregiver;clinical judgement necessary for treatment planning for next session;communication with nursing and/or care coordinat ion/social work regarding patient status and discharge planning * Reza Alatorre - 05/01/2025 1:58 PM EDT Images from the original note were not included. 05/01/25 1300 Reason for Visit Date of visit 05/01/25 Visited With Patient Visited By CPE Tile Presser Reason for Visit Hospitality visit;Spiritual, emotional or social support Patient Assessment Patient Appears Calm;Pleasant Patient Sabianist at Registration Nazarene Patient Sabianist Upon Assessment Nazarene Spiritual Strengths and Coping Resources Accepts help from others;Gratitude Patient Spiritual Wellbeing Appears to be coping adequately Interventions with Patient Relationship Building Interventions Listened empathetically;Provided hospitality Islam Interventions Prayer with patient or family Outcomes Expressed Outcomes Appreciative of prayer/ritual;Appreciative of visit Care Plan Plan for Follow-Up Acoustical Engineer(s) remains available as needed Reza Alatorre Acoustical Engineer, Pastoral and Spiritual Care For non-urgent requests, please place a Pastoral Care consult in [facility]. For all urgent matters, please send an urgent [facility] Secure Chat to the Pastoral Care group at your location. Between 11pm and 7am, please use On-Call Finder to send an [facility] Secure Chat to the on-call food management aide. Pastoral Care office phone numbers: EDG/COV/GRT [phone], JAMAAL [phone], FTT [phone], DBN [phone] * Wilman Lomax, PT - 05/01/2025 9:31 AM EDT 05/01/25 0924 PT Subjective Note Type Evaluation Patient Room/Unit 392 PT Subjective Comments #1 Agrees to evaluation. Requests to use the restroom. Others Present/Assisting ortho present momentarily during session Discharge Information Evaluation to serve as discharge summary if no further treatment provided before the facility discharge Admitting Diagnosis back pain Past Med Hx bipolar disorder, asthma, COPD, DM2 Diagnostic Testing MRI Lumbar Spine: Overall mild lumbar spine degenerative changes without high-grade neuroforaminal or canal stenosis. Facet synovitis at L4-L5 is possibly degenerative. MRI T spine: No acute abnormality of the thoracic spine. MRI C spine: Minor discogenic changes without neural co mpression. No cord signal alteration. Clinical Course Admitted on 04/29 due to back pain, after falling ~10 days ago. Pain Screening PT/OT Patient Currently in Pain Yes Pain Rating 6 Pain Location Back Pain Orientation Lower Pain Intervention(s) Repositioned;Ambulation/Increased activity;Distraction Cognition Additional comments A&Ox3 Precautions Therapy Precautions Yes Precaution Info Given To use call light to request assistance with all mobility Home Living/Prior Function Type of Home (hotel) Home Equipment None Level of Assistance Ambulatory in the community Lives With Spouse Fall History 1-3 falls in the last three months Coord/Sensation Assessed Impaired Light Touch Partial deficits in the LLE;Partial deficits in the RLE Additional Comments She states having decreased sensation secondary to neuropathy at baseline but mentions that this decreased sensation has been worse since the fall Perception Perception Grossly intact/normal Observation Presentation Patient resting in bed Observation Bed alarm LE Assessment LLE Additional Comments ROM WFL's. Strength 4/5 throughout except quads 3+/5. RLE Additional Comments ROM WFL's. Strength 4/5 throughout except quads 3+/5. Bed Mobility Supine to Sit Stand by assist;With cues Transfers Sit to Stand Stand by assist;With verbal cues Stand to Sit Stand by assistance;With verbal cues Gait Gait Contact guard assist Gait Distance (Feet) 36 Feet Assistive Device 2 Wheel walker Pattern Slow simin Additional Comments Patient amb to the restroom and back. Declined further Functional Status Score (FSS-ICU) Is the patient currently in ICU? No PT/OT Mobility Documentation PT/OT Mobility Score 7 AM PAC: How much help from another person does the patient currently need... turning from your back to your side while in a flat bed without using bedrails? 4 moving from lying on your back to sitting on the side of a flat bed without using bedrails? 4 moving to and from a bed to a chair? 4 standing up from a chair using your arms (e.g. wheelchair, or bedside chair)? 3 need to walk in hospital room? 3 climbing 3-5 steps with a railing? 3 AM PAC: BASIC MOBILITY SCORING AM PAC Moblity Raw Score 21 AM PAC Mobility CMS 0-100% Functional Percentage 29.52 AM PAC Mobility CMS G Code Modifier CJ Balance Sitting Balance 4/5 moves/returns trunkal midpoint 1-2 inches in multiple planes Standing Balance 2+/5 indep, requires 1 UE support Education Education To use call light to request assistance with all mobility;Role of Therapy;Patient/Family Education;Safety with mobility;Cues for proper technique;Discharge planning;Up with assistance only;Safe and proper technique with transfers;Safe and proper technique with gait pattern Additional Comments Patient instructed to perform quad sets and LAQ's (when in the chair) throughout the day. She verbalized an understanding Patient Safety Patient Safety Patient left in chair with needs in reach;Chair/personal alarm activated Assessment Assessment Decreased gait;Decreased functional mobility;Decreased balance;Decreased RightLower Extremity strength;Decreased Left Lower Extremity strength;Decreased activity tolerance ;Decreased endurance Prognosis Fair;With continued PT s/p acute discharge Rationale for Skilled Therapy Fall Risk;Balance Deficits;Not safe ambulating independently Goals Patient and/or Family Goal To feel better PT GOALS (Yes/No) Yes Add Goals Will Perform Sit to Stand Supervision;With least restrictive assistive device;To improve functionalmobility Will Ambulate With least restrictive assistive device;101-150 feet;With stand by assist;To improve functional mobility Will Tolerate Exercise 11-15 reps;With verbal cues required/provided;To improve functional mobility Will Tolerate Continuous Activity 11-15 min;With verbal cues required/provided;To improve functional mobility Goal Formulation With patient Time for Goal Achievement/Duration of Treatment 05/15/25 Recommendation PT Recommendation Low frequency therapy with intensity appropriate for patient need recommended. Therapy Equipment Recommended 2 Wheel walker Time In / Time Out 0837/0849 IP PT Evaluation Minutes 12 * Silverio Whyte MD - 05/01/2025 9:12 AM EDT Images from the original note were not included. Spine Pt mri of lumbar, thoracic and c spine without severe pathology The L5s1 disc has some ddd changes but not indication for surgery at this time I rec she begin PT Fu spine center or pcp No plan for surgery Silverio Whyte MD * Eric Gerardo MD - 04/30/2025 4:48 PM EDTAssociated Problem(s): Midline low back pain without sciatica, unspecified chronicity - MRI of L-spine nonacute. MRI of T-spine and C-spine pending. Orthopedic input appreciated. Started on Decadron by orthopedic team. Multimodal pain control. Patient was able to walk to the bathroom.PT/OT. * Eric Gerardo MD - 04/30/2025 4:48 PM EDTAssociated Problem(s): Bipolar 2 disorder (HCC) - Home medications resumed * Eric Gerardo MD - 04/30/2025 4:48 PM EDTAssociated Problem(s): ADHD (attention deficit hyperactivity disorder) - Home medications resumed * Eric Gerardo MD - 04/30/2025 4:48 PM EDTAssociated Problem(s): Anxiety - Home medications resumed * Eric Gerardo MD - 04/30/2025 4:48 PM EDTAssociated Problem(s): Tobacco abuse - Nicotine patch ordered. * Eric Gerardo MD - 04/30/2025 4:48 PM EDTAssociated Problem(s): Hypertension - Hold Bumex. Hold Aldactone if systolic pressures less than 110 Patient is on a high risk drug therapy requiring intensive monitoring to prevent drug toxicity: Dilaudid IV - requiring intensive monitoring of respiratory status. * Eric Gerardo MD - 04/30/2025 4:43 PM EDT Images from the original note were not included. PROGRESS NOTE Medically Ready for Discharge?: No EDOD: 05/02/2025 Not Ready for Discharge because: pending MRI Assessment/Plan: Assessment & Plan Midline low back pain without sciatica, unspecified chronicity - MRI of L-spine nonacute. MRI of T-spine and C-spine pending. Orthopedic input appreciated. Started on Decadron by orthopedic team. Multimodal pain control. Patient was able to walk to the bathroom.PT/OT. Bipolar 2 disorder (HCC) ADHD (attention deficit hyperactivity disorder) Anxiety - Home medications resumed Tobacco abuse - Nicotine patch ordered. Hypertension - Hold Bumex. Hold Aldactone if systolic pressures less than 110 Patient is on a high risk drug therapy requiring intensive monitoring to prevent drug toxicity: Dilaudid IV - requiring intensive monitoring of respiratory status. DVT prophylaxis: SQ Lovenox. Most recent EKG, telemetry tracings, Imaging, and labs independently reviewed and interpreted by josé miguel 04/30/2025 VTE Prophylaxis: Qualifying Pharmacologic Prophylaxis enoxaparin (LOVENOX) injection 40 mg 2 TIMES DAILY Active Hospital Problems Diagnosis *Midline low back pain without sciatica, unspecified chronicity Tobacco abuse Anxiety ADHD (attention deficit hyperactivity disorder) Bipolar 2 disorder (HCC) Subjective: Seen and examined in am. Persistent back pain. Objective: BP 97/50 (BP Location: Left arm, Patient Position: Semi Fowlers) Pulse 64 Temp 98.4 ??F (36.9 ??C) (Oral) Resp 17 Ht 5' 11 (1.803 m) Wt (!) 307 lb (139.3 kg) LMP 09/13/2011 SpO2 98% BMI 42.82 kg/m?? No intake/output data recorded. Weight: (!) 307 lb (139.3 kg) Constitutional: AAOx3 Cardiovascular: RRR Pulmonary/Chest: CTAB Abdominal: Soft. NT ND Musculoskeletal: No edema. Neurological: AO x 4, bilateral lower extremity weakness Skin: Skin is warm and dry. Labs: Laboratory data and diagnostic testing reviewed 04/30/25. Part of this note was dictated using voice recognition technology and may include unintended spelling errors. Eric Gerardo MD 04/30/2025 4:43 PM * Shavon Ring, OT - 04/30/2025 3:08 PM EDT 04/30/25 1507 OT Subjective Note Type Chart Review;Hold Patient Room/Unit 392 OT Subjective Comments #1 Patient unable to perform motor strength testing BLE d/t weakness/pain. No severe pathology on MRI to explain. Will obtain MRI thoracic spine and MRI cervical spine for further evaluation. Therapy delay reason Awaiting test results Plan OT Frequency OT to complete evaluation * Neli Mariano RN - 04/30/2025 2:31 PM EDT LOW BACK PAIN Mri cervical and thoracic spine Dcplan- cc/ss following * Wilman Lomax, PT - 04/30/2025 2:04 PM EDT 04/30/25 1402 PT Subjective Note Type Chart Review Patient Room/Unit 392 Therapy delay reason Await test results (Per ortho note, she is to have an MRI of the C and T spine, secondary to B LE pain and numbness that can't be explained by her lumbar MRI results. We will hold until afterwards) * Kathryn Mack RN - 04/30/2025 1:02 PM EDT Images from the original note were not included. WOUND CARE: Consulted for: abdominal folds Please see LDA(s) for complete documentation and assessment. Upon assessment, pt with the following present on admission wounds: Left abdominal fold and right groin- open wounds presenting as irregular, red, moist and raised. Patient with numerous other intact areas of scarring. Patient reports she frequently gets boils/wounds in this area. Concerning for Hidradenitis, recommend outpatient Dermatology follow-up. Recommend to cleanse area with Hibiclen and cover open wounds with Mepilex AG Foam (11488) to provide an antimicrobial component, manage exudate, promote autolysis and to offer padding/protection. Encourage continuation of preventative interventions such as frequent repositioning/ scheduled turns, as well as offloading bilateral heels. Patient is on a low air loss sleep surface to manage the microclimate of the skin (ensure function is on). Orders updated in [facility]. Primary nurse, Tahmina lainez. Will continue to follow along and offer support. Thanks! RIGHT GROIN LEFT ABDOMINAL FOLD * Kathryn Mack RN - 04/30/2025 8:46 AM EDT WOUND CARE: Consulted for abdominal folds/arron-area. No LDA noted. Secure chat sent to primary RNJaz, Wound care was consulted for abdominal folds/arron area. I do not see an LDA. If this is simple moisture, please place LDA and initiate superficial yeast protocol. If you find something that wound care does need to assess, please place new consult. Thanks! * Hunter Gutierrez RN - 04/29/2025 3:35 PM EDT 04/29/25 1527 Discharge Planning Evaluation Completed by CC/SW Yes Referral Source Chart review Who you interviewed In person interview with patient Mental Status Alert and oriented Decision Maker Patient Who does pt identify as their caregiver/support person who will be their active partner in the dc planning process Pt identified caregiver/support person for dc planning process Caregiver Name Magdiel Olguin Does patient need sandwich artist? No Activities of Daily Living Prior to Admission Independent with ADLS;Independent with Homemaking;Independent with mobility DME Used at Home None Patient's Living Arrangments Prior to Admission? Other (Comment) ([facility]) Support Systems Spouse/Significant Other Is PCP listed on facesheet correct? Yes Quality of Support System Adequate Identified psychosocial/financial issues Homelessness/Housing Community Resources Subsidized Housing Assistance Information;Meal Assistance Actual Discharge Plan 04/29/2025 CC Initial assessment spoke with patient at bedside. Juliana lives with spouse Magdiel at [facility] and has lived there since January, she is independent with her care and does not use DME. SDOH complete and she does struggle with housing and food insecurity and wasgiven housing resources and food resources. Juliana can not get to [place] because they have issues with transportation. PCP is DR Love but she has not seen him since she lost her insurance. [facility]acy [facility] so we can assist with her medications. Patient will need transportation assistance at discharge. SW to follow. * Eric Gerardo MD - 04/29/2025 3:35 PM EDTAssociated Problem(s): Midline low back pain without sciatica, unspecified chronicity - MRI of L-spine ordered by ER, follow-up on results. Multimodal pain control. Patient stated that morphine was not effective. Dilaudid for breakthrough pain. Baclofen for muscle spasms. * Eric Gerardo MD - 04/29/2025 3:35 PM EDTAssociated Problem(s): Bipolar 2 disorder (HCC) - Resume home medications once verified. * Eric Gerardo MD - 04/29/2025 3:35 PM EDTAssociated Problem(s): Tobacco abuse - Nicotine patch ordered. CBC, BMP documented in this encounter H&P Notes * Eric Gerardo MD - 04/29/2025 3:32 PM EDT [facility] History and Physical Name: Juliana Olguin ADDRESS: [address] [place] [address] : 1985 AGE: 39 y.o. Referring Physician: Admitting Physician: Eric Gerardo MD Date of Admit: 04/29/2025 SUBJECTIVE Chief Complaint: History of Present Illness: Juliana Olguin is a 39 y.o. year old female with past medical history of has a past medical history of Arthritis, Asthma, Bipolar 2 disorder (HCC), COPD (chronic obstructive pulmonary disease) ([facility]), Diabetes mellitus ([facility]), and H/O degenerative disc disease. is admitted due to CC of intractable lower back pain. Patient fell around 10 days ago and landed on her lower back. Since then she has been having intractable lower back pain, 10 out of 10 intensity, unable to describe in detail, worse with activity. She has chronic occasional bowel and bladder incontinence which has gotten worse since fall. She also reports worsening tingling and numbness in the right foot. She denied any other compla ints. Admission Dx: Intractable lower back pain Past Medical History[1] Surgical History[2] Allergies[3] Social History[4] Family History[5] Prescriptions Prior to Admission[6] Review of Systems: ROS ROS negative except for symptoms stated in HPI OBJECTIVE Physical Exam: Patient Vitals for the past 2 hrs: Pulse Resp 04/29/25 1400 64 19 Patient not in acute distress HEENT Head is AT, PEERLA Neck supple, NO JVD, No carotid bruit, no lymphadenopathy. Lungs CTA Heart Regular, S1, S2 are normal. No murmur Abd soft , NT, ND, bowels sounds are present Ext No edema or calf pain Neuro AAOx 3. Right lower extremity greater than left lower EXTR weakness Skin intact, no rash or jaundice. Labs: CBC: Lab Results Component Value Date WBC 5.2 04/29/2025 RBC 3.89 (L) 04/29/2025 HGB 12.7 04/29/2025 HCT 37.7 04/29/2025 MCV 96.9 04/29/2025 MCHC 33.7 04/29/2025 RDW 13.1 04/29/2025 MPV 9.5 04/29/2025 BMP: Lab Results Component Value Date NA 139 04/29/2025 K 4.0 04/29/2025 CL 110 (H) 04/29/2025 CO2 20 (L) 04/29/2025 BUN 5 (L) 04/29/2025 CREATININE 0.67 04/29/2025 CALCIUM 9.0 04/29/2025 GLU 86 04/29/2025 Lab Results Component Value Date ALKPHOS 98 04/29/2025 ALT 21 04/29/2025 AST 52 (H) 04/29/2025 PROT 6.6 04/29/2025 LABBILI 0.4 04/29/2025 No results found for: AMYLASE , LIPASE Lab Results Component Value Date SPECGRAV 1.006 04/29/2025 UAPROTEIN Negative 04/29/2025 BLOODU Negative 04/29/2025 NITRITE Negative 04/29/2025 LEUKOCYTESUR Negative 04/29/2025 WBCUA <1 04/29/2025 RBCUA 1 04/29/2025 Coagulation: No results found for: PT , INR , APTT Cardiac markers: No results found for: CKMB , MYOGLOBIN ABGs: No results found for: PH , PCO2 , PO2 , HCO3 , TCO2 , BASEEXCESS , O2SAT , INSPIREDO2 , SPECIMENTYPE Radiology: No results found. Assessment / Plan: Active Hospital Problems Diagnosis *Midline low back pain without sciatica, unspecified chronicity Tobacco abuse Anxiety ADHD (attention deficit hyperactivity disorder) Bipolar 2 disorder (HCC) Assessment & Plan Midline low back pain without sciatica, unspecified chronicity - MRI of L-spine ordered by ER, follow-up on results. Multimodal pain control. Patient stated that morphine was not effective. Dilaudid for breakthrough pain. Baclofen for muscle spasms. Bipolar 2 disorder (HCC) - Resume home medications once verified. ADHD (attention deficit hyperactivity disorder) Anxiety Tobacco abuse - Nicotine patch ordered. CBC, BMP And UA results reviewed. Case discussed with ER attending. Labs ordered for tomorrow. CODE STATUS: Full code, discussed with patient. DVT prophylaxis: SQ Lovenox. Part of this note was dictated using voice recognition technology and may include unintended spelling errors. Eric Gerardo MD 04/29/2025 [1] Past Medical History: Diagnosis Date Arthritis Asthma Bipolar 2 disorder (HCC) COPD (chronic obstructive pulmonary disease) (HCC) Diabetes mellitus (HCC) H/O degenerative disc disease [2] Past Surgical History: Procedure Laterality Date YOANDY-EN-Y GASTRIC BYPASS 2018 [3] Allergies Allergen Reactions Avelox [Moxifloxacin] [4] Social History Socioeconomic History Marital status: Spouse name: None Number of children: None Years of education: None Highest education level: None Tobacco Use Smoking status: Every Day Current packs/day: 0.50 Average packs/day: 0.5 packs/day for 28.3 years (14.2 ttl pk-yrs) Types: Cigarettes Start date: 12/25/1996 [...] Transportation Needs: Low Risk (06/06/2022) Received from [facility] Medicaid PRAPARE Survey 1.0 Has lack of transportation kept you from medical appointments, meetings, work, or from getting things needed for daily living? Check all that apply.: No Housing Stability: Low Risk (06/06/2022) Received from [facility] Medicaid PRAPARE Survey 1.0 What is your housing situation today?: I have housing [5] No family history on file. [6] (Not in a hospital admission) documented in this encounter Consult Notes * Georgina Carballo DO - 05/02/2025 11:18 AM EDTAssociated Order(s): IP CONSULT TO NEUROLOGY Admit date: 04/29/2025 Admitting diagnosis: Midline low back pain without sciatica, unspecified chronicity [M54.50] Today's date: 05/02/2025 Current length of stay: 0 day(s) HPI: This is a 39 y.o. right handed female with a hx of chronic LBP, tobacco abuse, HTN, bipolar disorder and tobacco abuse whom I am seeing in neurologic consultation at the request of Eric Gerardo MD for evaluation of LE weakness/pain. Patient provides her own history and additional history obtained from the chart. Patient states that she has chronic low back pain. She states this has been since she was age 17 and told she had degenerative changes in her low back. She previously followed with pain management in [place]. She hasreceived injections in the past. She states that she can no longer follow-up with pain management because she does not have insurance. She states her last injection was a few months ago and it does not seem to make it the symptoms any better. She states that she has chronic bowel/bladder incontinence, but this is not new. Patient states that she fell about 2 weeks ago. She states after falling, she had worsening chroniclow back pain. She states that it was causing more radicular symptoms, specifically down her right lower extremity. She states that it was just progressively getting worse until 2 days ago when the pain was so severe that she felt that she could not walk. She states she felt she had to use a wheelchair to come to the emergency department. Overall, she states the pain is still present, but the weakness is improved. She denies any upper extremity symptoms. Orthopedics saw the patient and reviewed the MRI. They did note the L5-S1 disc changes, but there was nothing surgical. It was recommended she follow-up with her PCP or the spine center. They also recommended MRI cervical and thoracic spine for completeness. Primary team consulted neurology. 04/29/2025 MRI lumbar spine personally reviewed: Degenerative changes with multilevel disc bulging and moderate to severe disc space narrowing at L5-S1. There is narrowing of the right greater than left subarticular zones with abutment of the descending S1 nerves. 04/30/2025 MRI cervical spine without contrast personally reviewed: No spinal cord abnormalities 04/30/2025 MRI thoracic spine without contrast personally reviewed: No spinal cord abnormalities BUN/creatinine: 5/0.58 UA: Negative Telemetry: NSR Past Medical History[1] Active Hospital Problems Diagnosis *Midline low back pain without sciatica, unspecified chronicity Hypertension Tobacco abuse Anxiety ADHD (attention deficit hyperactivity disorder) Bipolar 2 disorder (HCC) Surgical History[2] Social History Tobacco Use Smoking status: Every Day Current packs/day: 0.50 Average packs/day: 0.5 packs/day for 28.4 years (14.2 ttl pk-yrs) Types: Cigarettes Start date: 12/25/1996 Smokeless tobacco: Never Substance Use Topics Alcohol use: Yes Comment: occ Family History[3] Medications ordered prior to the current encounter[4] Scheduled Meds: aspirin 81 mg Oral Daily azelastine 2 Helm Each Nare BID budesonide-formoteroL 2 Puff Inhalation RESP BID bumetanide 2 mg Oral Daily dexAMETHasone 6 mg Oral Daily WM enoxaparin 40 mg Subcutaneous BID LEVOthyroxine 112 mcg Oral Daily lithium 450 mg Oral BID methylphenidate HCl 36 mg Oral Daily miconazole Topical BID montelukast 10 mg Oral QPM naloxegoL 25 mg Oral Daily nicotine 1 Patch Transdermal Daily And nicotine 1 Patch Transdermal Nightly oxybutynin 5 mg Oral BID QUEtiapine 100 mg Oral Daily 8PM rosuvastatin 20 mg Oral Daily spironolactone 100 mg Oral Daily vortioxetine 10 mg Oral Daily Continuous Infusions: PRN Meds:.budesonide-formoteroL AND albuterol, baclofen, ondansetron OR ondansetron, oxyCODONE, prochlorperazine Allergies[5] ROS: Denies CP, SOB, diaphoresis, palpitations, N/V/D, constipation, dysuria, hematuria, F/C, recent illnesses, or sick exposures. All other systems reviewed and are negative. Physical Examination: Patient Vitals for the past 24 hrs: BP Temp Temp src Pulse Resp SpO2 05/02/25 0842 -- -- -- 70 18 -- 05/02/25 0840 -- -- -- 72 18 95 % 05/02/25 0753 111/58 98.2 ??F (36.8 ??C) -- 57 16 98 % 05/02/25 0524 123/61 98.4 ??F (36.9 ??C) Oral 62 18 93 % 05/01/252019 -- -- -- 74 18 97 % 05/01/252013 -- -- -- 75 18 96 % 05/01/251953 114/63 98.4 ??F (36.9 ??C) Oral 73 17 95 % 05/01/25 1548 113/98 97.4 ??F (36.3 ??C) Oral 67 16 97 % General: This is a pleasant cooperative female in [facility]. HEENT: NC/AT, fundi not fully visualized Cardiovascular: Carotid auscultation negative bilaterally. RRR, no murmurs/gallops/rubs Resp: CTAB, no wheezes/rales/rhonchi Abd: soft, NT, ND Ext: no cyanosis, clubbing, edema, 2/4 pedal pulses bilaterally Mental Status: A+O to person, place, time and situation. Remote and recent memory intact. Normal language, attention, concentration, fund of knowledge. Cranial Nerves: II: Visual mejia full to confrontation. Pupils equal, round and reactive to light, 4-2 mm OU. III, IV, : EOMI. No nystagmus V: Facial sensations symmetric to light touch VII: Facial movements symmetric, smile symmetric VIII: Hearing grossly intact IX, X: Palate raises midline, no uvula deviation XI: Shoulder shrug symmetric XII: Tongue protrudes midline Motor: 5/5 strength in bilateral upper extremities proximally and distally. Besides some mild pain limitation in the lower extremities, no clear weakness. She has at least 4+/5 bilateral hip flexors and with effort, 5/5 in the remainder of the lower extremities. Normal muscle bulk and tone in bilateral upper and lower extremities. No spasticity, rigidity or tremor noted. Sensory: Sensation to light touch, temp, and vibration intact in the bilateral upper and lower extremities. Coordination: Finger to nose and rapid alternating movements intact. No dysmetria or dysdiadochokinesia. Reflexes: 2/4 bilateral biceps, triceps, brachioradialis. 1/4 bilateral patellar, 1/4 bilateral Achilles. Toes downgoing bilaterally. Gait: Not assessed due to pain complaints Labs and Imaging: Admission on 04/29/2025 Component Date Value WBC 04/29/2025 5.2 RBC 04/29/2025 3.89 (L) Hgb 04/29/2025 12.7 Hct 04/29/2025 37.7 MCV 04/29/2025 96.9 MCH 04/29/2025 32.6 MCHC 04/29/2025 33.7 RDW 04/29/2025 13.1 Platelet 04/29/2025 216 MPV 04/29/2025 9.5 Neut Percent 04/29/2025 42.9 Imm Gran% 04/29/2025 0.0 Lymph Percent 04/29/2025 41.4 Dent Percent 04/29/2025 7.5 Eos Percent 04/29/2025 7.4 Baso Percent 04/29/2025 0.8 Neut # 04/29/2025 2.2 IMMGRAN# 04/29/2025 0.0 Lymph # 04/29/2025 2.1 Dent # 04/29/2025 0.4 Eos# 04/29/2025 0.4 Baso # 04/29/2025 0.0 Sodium 04/29/2025 139 Potassium 04/29/2025 4.0 Chloride 04/29/2025 110 (H) Total CO2 04/29/2025 20 (L) Anion Gap 04/29/2025 9 Calcium 04/29/2025 9.0 Glucose Lvl 04/29/2025 86 BUN 04/29/2025 5 (L) Creatinine 04/29/2025 0.67 Albumin 04/29/2025 3.9 Total Protein 04/29/2025 6.6 Bili Total 04/29/2025 0.4 ALT 04/29/2025 21 AST 04/29/2025 52 (H) Alk Phos 04/29/2025 98 eGFR (CKD-EPIcr 2020) 04/29/2025 111 UA Color 04/29/2025 Colorless UA Appear 04/29/2025 Clear UA Glucose 04/29/2025 Negative UA Ketones 04/29/2025 Negative UA Blood 04/29/2025 Negative UA pH 04/29/2025 6.0 UA Protein 04/29/2025 Negative UA Urobilinogen 04/29/2025 Normal UA Bili 04/29/2025 Negative UA Nitrite 04/29/2025 Negative UA Leuk Est 04/29/2025 Negative UA Spec Grav 04/29/2025 1.006 UA WBC 04/29/2025 <1 UA RBC 04/29/2025 1 UA Squam Epi 04/29/2025 2+ UA Bacteria 04/29/2025 Trace (A) WBC 04/30/2025 3.8 RBC 04/30/2025 3.60 (L) Hgb 04/30/2025 11.9 Hct 04/30/2025 35.5 MCV 04/30/2025 98.6 MCH 04/30/2025 33.1 MCHC 04/30/2025 33.5 RDW 04/30/2025 13.2 Platelet 04/30/2025 176 MPV 04/30/2025 9.6 Neut Percent 04/30/2025 35.8 Imm Gran% 04/30/2025 0.0 Lymph Percent 04/30/2025 45.3 Dent Percent 04/30/2025 11.0 Eos Percent 04/30/2025 7.1 Baso Percent 04/30/2025 0.8 Neut # 04/30/2025 1.4 (L) IMMGRAN# 04/30/2025 0.0 Lymph # 04/30/2025 1.7 Dent # 04/30/2025 0.4 Eos# 04/30/2025 0.3 Baso # 04/30/2025 0.0 Sodium 04/30/2025 143 Potassium 04/30/2025 4.1 Chloride 04/30/2025 114 (H) Total CO2 04/30/2025 22 Anion Gap 04/30/2025 7 Calcium 04/30/2025 8.6 Glucose Lvl 04/30/2025 92 BUN 04/30/2025 4 (L) Creatinine 04/30/2025 0.59 Albumin 04/30/2025 3.3 (L) Total Protein 04/30/2025 5.8 (L) Bili Total 04/30/2025 0.4 ALT 04/30/2025 18 AST 04/30/2025 38 Alk Phos 04/30/2025 78 eGFR (CKD-EPIcr 2020) 04/30/2025 115 WBC 05/01/2025 6.1 RBC 05/01/2025 3.96 Hgb 05/01/2025 13.0 Hct 05/01/2025 38.7 MCV 05/01/2025 97.7 MCH 05/01/2025 32.8 MCHC 05/01/2025 33.6 RDW 05/01/2025 12.9 Platelet 05/01/2025 208 MPV 05/01/2025 9.5 Neut Percent 05/01/2025 87.6 Imm Gran% 05/01/2025 0.5 Lymph Percent 05/01/2025 9.9 Dent Percent 05/01/2025 2.0 Eos Percent 05/01/2025 0.0 Baso Percent 05/01/2025 0.0 Neut # 05/01/2025 5.3 IMMGRAN# 05/01/2025 0.0 Lymph # 05/01/2025 0.6 (L) Dent # 05/01/2025 0.1 (L) Eos# 05/01/2025 0.0 Baso # 05/01/2025 0.0 Sodium 05/01/2025 142 Potassium 05/01/2025 4.1 Chloride 05/01/2025 110 (H) Total CO2 05/01/2025 24 Anion Gap 05/01/2025 8 Calcium 05/01/2025 9.4 Glucose Lvl 05/01/2025 200 (H) BUN 05/01/2025 5 (L) Creatinine 05/01/2025 0.58 Albumin 05/01/2025 3.7 Total Protein 05/01/2025 6.6 Bili Total 05/01/2025 0.3 ALT 05/01/2025 18 AST 05/01/2025 24 Alk Phos 05/01/2025 81 eGFR (CKD-EPIcr 2020) 05/01/2025 115 Total Psa 05/01/2025 <0.04 WBC 05/02/2025 8.3 RBC 05/02/2025 3.69 (L) Hgb 05/02/2025 12.1 Hct 05/02/2025 36.4 MCV 05/02/2025 98.6 MCH 05/02/2025 32.8 MCHC 05/02/2025 33.2 RDW 05/02/2025 13.4 Platelet 05/02/2025 199 MPV 05/02/2025 9.7 Neut Percent 05/02/2025 70.7 Imm Gran% 05/02/2025 0.4 Lymph Percent 05/02/2025 21.5 Dent Percent 05/02/2025 7.3 Eos Percent 05/02/2025 0.0 Baso Percent 05/02/2025 0.1 Neut # 05/02/2025 5.9 IMMGRAN# 05/02/2025 0.0 Lymph # 05/02/2025 1.8 Dent # 05/02/2025 0.6 Eos# 05/02/2025 0.0 Baso # 05/02/2025 0.0 No results found. Impression/Recommendations: This is a 39 y.o. female with a hx of chronic LBP, tobacco abuse, HTN, bipolar disorder and tobaccoabuse seen in neurologic evaluation regarding LE weakness/pain. Bilateral lower extremity pain/weakness-with associated back pain s/p fall 2 weeks ago. On exam, besides in pain limitation of the hip flexors, I do not appreciate any clear weakness. No sensory changes. History and exam are not consistent with AIDP. Suspect much of her complaints are more pain related. She has a longstanding history of chronic low back pain. MRI lumbar spine with L5/S1 changes, but nonsurgical per orthopedics. MRI cervical and thoracic spine benign. Orthopedics recommended follow-up with PCP or spine. Agree with orthopedics, she would also benefit from PT. Tobacco abuse-smoking cessation Bipolar disorder-primary team to manage HTN-primary team to manage No further inpatient neurodiagnostics or recommendations. Agree with PT and outpatient follow-up with spine center, PCP or pain management. Neurology will sign off. No need for outpatient neurology follow-up. Neurology Disposition- Will Sign off?: Yes (work up complete) Timeframe for follow-up?: No neurology follow up needed Thank you for allowing me to participate in the care of Julianakai Martleter. Please do no hesitate to contact me with any further questions or concerns. This note was created using voice recognition technology and despite proof- reading efforts may contain unintended errors. [1] Past Medical History: Diagnosis Date Arthritis Asthma Bipolar 2 disorder (HCC) COPD (chronic obstructive pulmonary disease) (HCC) Diabetes mellitus (HCC) H/O degenerative disc disease [2] Past Surgical History: Procedure Laterality Date YOANDY-EN-Y GASTRIC BYPASS 2018 [3] No family history on file. [4] No current facility-administered medications on file prior to encounter. Current Outpatient Medications on File Prior to Encounter Medication Sig Dispense Refill aspirin 81 mg Oral Tablet, Chewable Take 81 mg by mouth daily. azelastine (ASTELIN) 137 mcg (0.1 %) Nasl Helm, Non-Aerosol 274 mcg in each nostril 2 times daily.Use in each nostril as directed baclofen (LIORESAL) 10 mg Oral Tablet Take 10 mg by mouth 2 times daily. bumetanide (BUMEX) 2 mg Oral Tablet Take 2 mg by mouth daily. cetirizine (ZYRTEC) 10 mg Oral Tablet Take 10 mg by mouth daily. HYDROcodone-acetaminophen (NORCO) 5-325 mg Oral Tablet Take 1 Tablet by mouth 3 times daily (beforemeals). LEVOthyroxine (SYNTHROID) 112 mcg Oral Tablet Take 112 mcg by mouth daily. lithium (LITHOBID) 450 mg Oral Tablet Sustained Release Take 450 mg by mouth 2 times daily. methylphenidate ER 36 mg tablet,extended release 24 hr Take 36 mg by mouth daily. montelukast (SINGULAIR) 10 mg Oral Tablet Take by mouth every evening. naloxegoL (MOVANTIK) 25 mg Oral Tablet Take 25 mg by mouth daily. prochlorperazine (COMPAZINE) 10 mg Oral Tablet Take 10 mg by mouth every 6 hours as needed for Nausea or Vomiting. QUEtiapine (SEROQUEL) 100 mg Oral Tablet Take 100 mg by mouth daily at 8pm. rosuvastatin (CRESTOR) 20 mg Oral Tablet Take 20 mg by mouth daily. spironolactone (ALDACTONE) 100 mg Oral Tablet Take 100 mg by mouth daily. vortioxetine (TRINTELLIX) 10 mg Oral tablet Take 10 mg by mouth daily. albuterol (PROVENTIL) 2.5 mg /3 mL (0.083 %) Inhl Solution for Nebulization Take 2.5 mg by nebulization as needed for Wheezing. budesonide-formoteroL (SYMBICORT) 160-4.5 mcg/actuation Inhl HFA Aerosol Inhaler Inhale 2 Puffs into the lungs 2 times daily. ketoconazole (NIZORAL) 2 % Top Cream Apply topically 2 times daily as needed for Itching. norgestimate-ethinyl estradioL (ORTHO-CYCLEN) 0.25-35 mg-mcg Oral Tablet Take 1 Tablet by mouth daily. Indications: abnormal bleeding from the uterus (Patient not taking: Reported on 01/09/2022) OXcarbazepine (TRILEPTAL) 300 mg Oral Tablet Take 300 mg by mouth 2 times daily. Indications: mood stablization (Patient not taking: Reported on 04/29/2025 Indications: mood stablization) oxybutynin (DITROPAN) 5 mg Oral Tablet Take 5 mg by mouth 2 times daily. [5] Allergies Allergen Reactions Avelox [Moxifloxacin] * Ev Tapia PA-C - 04/30/2025 7:31 AM EDTAssociated Order(s): IP CONSULT TO ORTHOPEDIC SURGERY Images from the original note were not included. [phone] [facility] - Spine Ev Tapia PA-C Date of Admission: 04/29/2025 Date of Consult: 04/30/2025 Referring Physician: Eric Gerardo MD Primary Care Physician: Ryan Love MD A/P: - MRI reviewed. Overall mild lumbar spine degenerative changes without high- grade neuroforaminal orcanal stenosis. Facet synovitis at L4-L5 is possibly degenerative. - Patient unable to perform motor strength testing BLE d/t weakness/pain. No severe pathology on MRI to explain. Will obtain MRI thoracic spine and MRI cervical spine for further evaluation. Patient was ambulating last night to bathroom with assistance. - Add decadron Discussed with Dr. Whyte S: Juliana Olguin is a 39 y.o. female who presents w c/o back pain. Fell 10 days ago on lower back Pain since then Pain radiates RLE Sees PM in [place] and gets injections, last one was a few months ago without relief Chronic occasional bowel/bladder incontinence and this is worse N/T RLE to foot Reports legs feel weak x 2 days, had to use wheelchair on arrival to ED Patient reports ambulated to bathroom with assistance last night Denies neck pain Denies BUE pain, N/T/weakness Denies difficulty using arms/hands O: Vital Signs BP 114/69 (BP Location: Right arm, Patient Position: Semi Fowlers) Pulse 58 Temp 98.1 ??F (36.7??C) (Oral) Resp 16 Ht 5' 11 (1.803 m) Wt (!) 307 lb (139.3 kg) LMP 09/13/2011 SpO2 100% BMI 42.82 kg/m?? Physical Exam GENERAL: Lying in bed, appears comfortable RESPIRATORY: Pulmonary effort is normal. No respiratory distress. HENT: Head: Normocephalic and atraumatic. NECK: supple, ROM within normal limits and without pain. SPINE: Decrease ROM secondary to pain. Upper extremities: Motor strength 5/5 bilaterally Negative fuentes sign bilaterally Lower extremities: No c/c/e. Vasculature intact. Motor strength 0-1/5 Unable to perform straight leg raise NEUROLOGIC: Normal deep tendon reflexes No clonus Sensory: Touch: Right Upper Extremity: normal Left Upper Extremity: normal Right Lower Extremity: normal Left Lower Extremity: normal PSYCHIATRIC: Appropriate mood and affect Radiology/ Procedures/Labs Pertinent imaging and laboratory studies were reviewed. MRI LUMBAR SPINE WO CONTRAST Result Date: 04/29/2025 MRI LUMBAR SPINE WITHOUT CONTRAST, 04/29/2025 5:11 PM CLINICAL HISTORY: -Fall 12 days ago, lower back pain, recent urinary and stool incontinence. COMPARISON: MRI 12/23/2022. PROCEDURE COMMENTS: Multiplanar multiecho MR imaging of the lumbar spine without contrast. FINDINGS: Counting reference: TheL4-5 disc space is at the level of the iliac crest. There are 5 lumbar type vertebra. Visualized spinal cord is unremarkable. No substantial listhesis. Maintained vertebral body heights. No suspicious focal marrow replacing lesions. Level by level analysis: L1-L2: Unremarkable L2-L3: Unremarkable L3-L4: Disc bulge narrowing the subarticular zones. Mild facet arthropathy. Neuroforamina are patent.Mild canal stenosis. L4-L5: Disc bulge narrowing the subarticular zones. Mild facet arthropathy with inflammatory changes surrounding the facet joints. Neuroforamina are patent. Mild canal stenosis. L5-S1: Moderate to severe disc space narrowing with type II endplate changes. Disc bulge with superimposed central extrusion and annular fissure. There is narrowing of the right greater than left subarticular zones with abutment of the descending S1 nerves. Mild left greater than right facet arthropathy. Mild right neuroforaminal stenosis. Canal is patent Overall mild lumbar spine degenerative changes without high-grade neuroforaminal or canal stenosis.Facet synovitis at L4-L5 is possibly degenerative. - Note: Radiology results need to be interpretedwithin a comprehensive clinical context. If you have questions about the radiology report, please contact the office of the ordering clinician. Ev Tapia PA-C 04/30/2025 7:31 AM Parts of this note may have been created by a chart review, combined by taking my own patient history. The patient was physically seen and examined by myself, including a personal review of images, tests, and formation of the impression and plan. In addition, unintended typographical errors may be present. Cosigned by Silverio Whyte MD at 04/30/2025 10:10 AM EDT Associated attestation - Silverio Whyte MD - 04/30/2025 10:10 AM EDT agree documented in this encounter ED Notes * Mercy Vaughn RN - 04/29/2025 2:58 PM EDT Report given to ARLEY Peralta * Shawn Galindo MD - 04/29/2025 7:51 AM EDT CHIEF COMPLAINT Chief Complaint Patient presents with Back Pain woke up confused 2 Sundays ago and fell, hurt low back, pain is getting worse. Has lost control of bowel and bladder HPI Juliana Olguin is a 39 y.o. female. Patient presents to hospital complaining of lower back pain aswell as urinary and stool incontinence. Patient states she is currently staying in a hotel room because otherwise she would be homeless. Patient on my review of the EMR was noted to be in the emergency department April 02 with some low blood pressure. She was having lightheaded episode at that time. She ended up being discharged AGAINST MEDICAL ADVICE even though admission was recommended forsome persistent hypotension. Patient tells me that approximately 12 days ago she awoke and tried towalk and felt a bit dazed and lightheaded and not really confused but more just a lightheaded. She ended up falling and states she struck her lower back when she fell. Ever since then she has had worsening of her chronic lower back pain. States it is in the generalized lower back and does not radiate consistently but occasionally radiates down her right leg. She states that on specific questioning she has had some urinary or stool incontinence that is essentially and chronic in nature. However,it has increased in frequency since the fall and back injury. She states at times she will fill up a depends 6 times in a day . She also describes occasionally not knowing she had a bowel movement until she goes to the restroom and wipes her buttocks. Patient denies any IV drug abuse but does smoke tobacco. No history of fever. She states sometimes she feels as if she is dragging her right leg over the past week and states someone told her that was the case when they saw her walk. REVIEW OF SYSTEMS No fever. No abdominal pain. No dysuria or hematuria. No saddle anesthesia reported. See HPI for further details. Remainder of Review of systems is otherwise negative. PAST MEDICAL HISTORY Past Medical History[1] FAMILY HISTORY Family History[2] SOCIAL HISTORY Social History[3] SURGICAL HISTORY Surgical History[4] CURRENT MEDICATIONS Medications ordered prior to the current encounter[5] ALLERGIES Allergies[6] PHYSICAL EXAM VITAL SIGNS: ED Triage Vitals Temp 04/29/25 0803 98.3 ??F (36.8 ??C) Pulse 04/29/25 0753 67 Resp 04/29/25 0753 18 BP 04/29/25 0803 139/70 SpO2 04/29/25 0753 100 % Height 04/29/25 0803 5' 11 (1.803 m) Weight 04/29/25 0803 (!) 307 lb (139.3 kg) Constitutional: Awake and alert. Patient appears her reported weight of 307 pounds. Patient appearsvery comfortable just seated on the stretcher. HENT: Atraumatic. Eyes: Conjunctiva normal. Neck: ROM normal, supple. Cardiovascular: Regular rhythm, No murmur. Thorax & Lungs: Respiratory effort normal. Lungs clear. Abdomen: Soft, nondistended, nontender. No rebound or guarding. /Anorectal: Musculoskeletal: Normal ROM. No edema. When patient was laying supine and I tested straight leg raise she reported pain radiating down both legs. However when she was seated on the edge of the bed with legs dangling I could straighten both legs completely and she did not report any pain rating downthe legs. Certainly that is notable. Patient has some mild nonfocal diffuse lumbar spine tendernesswithout step-offs and some paraspinal lumbar muscular tenderness. No rash. No focal lumbar spine tenderness. Skin: Warm and dry. Neurologic: Alert , Nonfocal. 1+ patellar and Achilles reflexes bilaterally. No clonus with ankle jerk. Patient appears to have good strength and sensation both lower extremities on my exam. Patient was able to ambulate to and from the restroom. Psychiatric: Affect normal. LABS/RADIOLOGY Results for orders placed or performed during the hospital encounter of 04/29/25 CBC WITH DIFF Result Value Ref Range WBC 5.2 3.7 - 10.3 x10(3)/mcL RBC 3.89 (L) 3.90 - 5.20 x10(6)/mcL Hgb 12.7 11.2 - 15.7 g/dL Hct 37.7 34.0 - 45.0 % MCV 96.9 80.0 - 100.0 fL MCH 32.6 26.0 - 34.0 pg MCHC 33.7 30.7 - 35.5 g/dL RDW 13.1 <=14.9 % Platelet 216 155 - 369 x10(3)/mcL MPV 9.5 8.8 - 12.5 fL Neut Percent 42.9 % Imm Gran% 0.0 % Lymph Percent 41.4 % Dent Percent 7.5 % Eos Percent 7.4 % Baso Percent 0.8 % Neut # 2.2 1.6 - 6.1 x10(3)/mcL IMMGRAN# 0.0 0.0 - 0.1 x10(3)/mcL Lymph # 2.1 1.2 - 3.9 x10(3)/mcL Dent # 0.4 0.3 - 0.9 x10(3)/mcL Eos# 0.4 0.0 - 0.5 x10(3)/mcL Baso # 0.0 0.0 - 0.1 x10(3)/mcL COMPREHENSIVE METABOLIC PANEL Result Value Ref Range Sodium 139 136 - 145 mmol/L Potassium 4.0 3.5 - 5.0 mmol/L Chloride 110 (H) 98 - 107 mmol/L Total CO2 20 (L) 22 - 29 mmol/L Anion Gap 9 7 - 16 mmol/L Calcium 9.0 8.6 - 10.4 mg/dL Glucose Lvl 86 70 - 99 mg/dL BUN 5 (L) 6 - 20 mg/dL Creatinine 0.67 0.51 - 1.30 mg/dL Albumin 3.9 3.5 - 5.2 gm/dL Total Protein 6.6 6.4 - 8.3 gm/dL Bili Total 0.4 0.2 - 1.3 mg/dL ALT 21 <=41 U/L AST 52 (H) <=40 U/L Alk Phos 98 36 - 123 U/L eGFR (CKD-EPIcr 2020) 111 >=60 mL/min/1.73 m2 UA W/REFLEX TO CULTURE Specimen: Urine, Clean Catch Narrative The following orders were created for panel order UA W/REFLEX TO CULTURE. Procedure Abnormality Status --------- ------ URINALYSIS REFLEX[[id number]] Abnormal Final result EXTRA CRUZ URINE CX[[id number]] Final result Please view results for these tests on the individual orders. URINALYSIS REFLEX Result Value Ref Range UA Color Colorless UA Appear Clear Clear UA Glucose Negative Negative mg/dL UA Ketones Negative Negative mg/dL UA Blood Negative Negative UA pH 6.0 5.0 - 8.0 pH UA Protein Negative Negative mg/dL UA Urobilinogen Normal <=1 mg/dL UA Bili Negative Negative UA Nitrite Negative Negative UA Leuk Est Negative Negative UA Spec Grav 1.006 1.001 - 1.035 no units UA WBC <1 0 - 4 /HPF UA RBC 1 0 - 3 /HPF UA Squam Epi 2+ /LPF UA Bacteria Trace (A) Negative /HPF EKG No orders to display PROCEDURES ED COURSE Pertinent Labs & Imaging studies reviewed. (See chart for details) Medications Administered Medications sodium chloride 0.9% syringe 5-10 mL (has no administration in time range) sodium chloride 0.9% IV line flush 50 mL (has no administration in time range) midazolam (VERSED) injection 2 mg (has no administration in time range) morphine injection 4 mg (4 mg Intravenous Given 04/29/25 1040) ondansetron (ZOFRAN) injection 4 mg (4 mg Intravenous Given 04/29/25 1040) morphine injection 4 mg (4 mg Intravenous Given 04/29/25 1308) MEDICAL DECISION MAKING Postvoid residual was checked by nursing as follows. Patient ambulated the restroom and urinated approximately 300 mL of urine. Then a straight catheterized urine was obtained with only 75 mL of urine noted to be remaining in the bladder. Certainly that is reassuring for the lack of a neurogenic erika dder. Nevertheless she also reports stool incontinence. Seems most reasonable to get an MRI of the lumbar spine. This was ordered several hours ago now but apparently would not be done into either 4:00 or possibly as late as 9:00 this evening. Given patient's homelessness and reported difficulty with functioning at home at the [facility] I think admission for MRI with results to be followed up on by the hospitalist certainly seems reasonable and most prudent. Patient agreeable with that plan. Patient requesting social work consult during admission given homelessness issues and financial issues. I will defer to the hospitalist in that regard. Patient discussed via secure chat with Dr. Eric Gerardo who agrees to admit the patient. Patient stable for [facility]. Discharge Medications: ED Current Prescriptions None FINAL IMPRESSION 1. Midline low back pain without sciatica, unspecified chronicity 2. Difficulty walking 3. Urinary incontinence, unspecified type 4. Incontinence of feces, unspecified fecal incontinence type 5. Homeless CRITICAL CARE Condition at Discharge/Transfer from Department: Stable In cases where narcotics are prescribed, [facility] report was obtained, reviewed, and made part of record. After examining available information, and risks of prescribing or dispensing controlled substances was explained to the patient (including non-treatment or other treatment), it is considered medically appropriate to administer narcotics as prescribed. [1] Past Medical History: Diagnosis Date Arthritis Asthma Bipolar 2 disorder (HCC) COPD (chronic obstructive pulmonary disease) (HCC) Diabetes mellitus (HCC) H/O degenerative disc disease [2] No family history on file. [3] Social History Socioeconomic History Marital status: Spouse name: None Number of children: None Years of education: None Highest education level: None Tobacco Use Smoking status: Every Day Current packs/day: 0.50 Average packs/day: 0.5 packs/day for 28.3 years (14.2 ttl pk-yrs) Types: Cigarettes Start date: 12/25/1996 [...] your housing situation today?: I have housing [4] Past Surgical History: Procedure Laterality Date YOANDY-EN-Y GASTRIC BYPASS 2018 [5] No current facility-administered medications on file prior [...] mg Oral Tablet Take by mouth nightly. [6] Allergies Allergen Reactions Avelox [Moxifloxacin] Shawn Galindo MD 04/29/25 1456 documented in this encounter Miscellaneous Notes * RT Oxygen Plan of Care Note - Christofer Holly RRT - 05/02/2025 8:42 AM EDT Images from the original note were not included. May 02, 2025 Oxygen Therapy: Maintain Oxygen Sat greater than or equal to: O2 Device: Room Air SpO2: 95 % Will continue to wean oxygen as tolerated to maintain titration goal. Christofer Holly RRT * Utilization Review Notes - Neli Mariano RN - 05/01/2025 9:18 AM EDT Admit as obs 04/29/25. Obs order in epic. Cont stay review. Dx Midline Low Back Pain Without Sciatica, Unspecified Chronicity Pt/ot eval consult neurology,decadron iv qid Dilaudid iv x2, oxycodone po x3 Dcplan- cc/ss following * Utilization Review Notes - Neli Mariano RN - 04/30/2025 9:41 AM EDT Admit as obs 04/29/25. Obs order in epic. Cont stay review. Dx Midline Low Back Pain Without Sciatica, Unspecified Chronicity Dilaudid iv x1, morphine iv x2,zofran iv x 1, oxycodone po x1 Mri cervical and thoracic spine Dcplan- cc/ss following * Utilization Review Notes - Grace Fritz RN - 04/29/2025 3:06 PM EDT PIO ADMITTED OBS ON 04/29. OBS ORDER ON CHART. PT IS TO BE ADMITTED TO MED SURG FOR LOW BACKPAIN LABS RBC 3.89 AST 52 URINE CULTURE PENDING MEDS VERSED IV, MORPHINE IV ZOFRAN IV MRI LUMBAR SPINE WO CONTRAST PENDING PER ER MD NOTE Back Pain woke up confused 2 Fridays ago and fell, hurt low back, pain is getting worse. Has lost control of bowel and bladder When patient was laying supine and I tested straight leg raise she reported pain radiating down both legs. However when she was seated on the edge of the bed with legs dangling I could straighten both legs completely and she did not report any pain rating down the legs. Certainly that is notable. Patient has some mild nonfocal diffuse lumbar spine tenderness without step-offs and some paraspinal lumbar muscular tenderness FINAL IMPRESSION Midline low back pain without sciatica, unspecified chronicity Difficulty walking Urinary incontinence, unspecified type Incontinence of feces, unspecified fecal incontinence type Homeless DC PLAN CC TO FOLLOW documented in this encounter Plan of Treatment Upcoming Encounters Date Type Department Care Team (Late st Contact Info) Description 07/01/2025 9:00 AM EST Appointment [facility] [address] [place] [address] Ken Portillo MD [address] [place] [address] 08/10/2025 9:15 AM EST Office Visit [facility] [address] [place] [address] Magnolia Godoy PA [address] [place] [address] Scheduled Referrals Name Type Priority Associated Diagnoses Orde r Schedule AMB REFERRAL TO PAIN CLINIC Outpatient Referral Routine Intractable back pain Ordered: 05/02/2025 documented as of this encounter Procedures Procedure Name Priority Date/Time Associated Diagnosis Comments CBC WITH DIFF Early AM 05/02/2025 5:19 AM EDT PSA - TOTAL W/ REFLEX TO FREE PSA Routine 05/01/2025 2:25 PM EDT IP CONSULT TO NEUROLOGY Routine 05/01/2025 7:59 AM EDT Procedure Note - Georgina Carballo DO - 05/02/2025 11:18 AM EDTThis note is in progress. Admit date: 04/29/2025 Admitting diagnosis: Midline low back pain without sciatica, unspecifiedchronicity [M54.50] Today's date: 05/02/2025 Current length of stay: 0 day(s) HPI: This is a 39 y.o. right handed female with a hx of chronicLBP, tobacco abuse, HTN, bipolar disorder and tobacco abuse whom I amseeing in neurologic consultation at the request of Eric Gerardo MD forevaluation of LE weakness/pain. Patient provides her own history and additional history obtained from thechart. Patient states that she has chronic low back pain. She statesthis has been since she was age 17 and told she had degenerative changesin her low back. [place] injections in the past. She states that shecan no longer follow-up with pain management because she does not haveinsurance. She states her last injection was a few months ago and it doesnot seem to make it the symptoms any better. She states that she haschronic bowel/bladder incontinence, but this is not new. Patient states that she fell about 2 weeks ago. She states after falling,she had worsening chronic low back pain. She states that it was causingmore radicular symptoms, specifically down her right lower extremity. Shestates that it was just progressively getting worse until 2 days ago whenthe pain was so severe that she felt that she could not walk. She statesshe felt she had to use a wheelchair to come to the emergency department.Overall, she states the pain is still present, but the weakness isimproved. She denies any upper extremity symptoms. Orthopedics saw the patient and reviewed the MRI. They did note the L5-S1disc changes, but there was nothing surgical. It was recommended shefollow-up with her PCP or the spine center. They also recommended MRIcervical and thoracic spine for completeness. Primary team consultedneurology. 04/29/2025 MRI lumbar spine personally reviewed: Degenerative changes withmultilevel disc bulging and moderate to severe disc space narrowing atL5-S1. There is narrowing of the right greater than left subarticularzones with abutment of the descending S1 nerves. 04/30/2025 MRI cervical spine without contrast personally reviewed: Nospinal cord abnormalities 04/30/2025 MRI thoracic spine without contrast personally reviewed: Nospinal cord abnormalities BUN/creatinine: 5/0.58 UA: Negative Telemetry: NSR Past Medical History[1] Active Hospital Problems Diagnosis *Midline low back pain without sciatica, unspecified chronicity Hypertension Tobacco abuse Anxiety ADHD (attention deficit hyperactivity disorder) Bipolar 2 disorder (HCC) Surgical History[2] Social History Tobacco Use Smoking status: Every Day Current packs/day: 0.50 Average packs/day: 0.5 packs/day for 28.4 years (14.2 ttl pk-yrs) Types: Cigarettes Start date: 12/25/1996 Smokeless tobacco: Never Substance Use Topics Alcohol use: Yes Comment: occ Family History[3] Medications ordered prior to the current encounter[4] Scheduled Meds: aspirin 81 mg Oral Daily azelastine 2 Helm Each Nare BID budesonide-formoteroL 2 Puff Inhalation RESP BID bumetanide 2 mg Oral Daily dexAMETHasone 6 mg Oral Daily WM enoxaparin 40 mg Subcutaneous BID LEVOthyroxine 112 mcg Oral Daily lithium 450 mg Oral BID methylphenidate HCl 36 mg Oral Daily miconazole Topical BID montelukast 10 mg Oral QPM naloxegoL 25 mg Oral Daily nicotine 1 Patch Transdermal Daily And nicotine 1 Patch Transdermal Nightly oxybutynin 5 mg Oral BID QUEtiapine 100 mg Oral Daily 8PM rosuvastatin 20 mg Oral Daily spironolactone 100 mg Oral Daily vortioxetine 10 mg Oral Daily Continuous Infusions: PRN Meds:.budesonide-formoteroL AND albuterol, baclofen, ondansetronOR ondansetron, oxyCODONE, prochlorperazine Allergies[5] ROS: Denies CP, SOB, diaphoresis, palpitations, N/V/D, constipation, dysuria,hematuria, F/C, recent illnesses, or sick exposures. All other systemsreviewed and are negative. Physical Examination: Patient Vitals for the past 24 hrs: BP Temp Temp src Pulse Resp SpO2 05/02/25 0842 -- -- -- 70 18 -- 05/02/25 0840 -- -- -- 72 18 95 % 05/02/25 0753 111/58 98.2 F (36.8 C) -- 57 16 98 % 05/02/25 0524 123/61 98.4 F (36.9 C) Oral 62 18 93 % 05/01/252019 -- -- -- 74 18 97 % 05/01/252013 -- -- -- 75 18 96 % 05/01/25 1954 114/63 98.4 F (36.9 C) Oral 73 17 95 % 05/01/25 1548 113/98 97.4 F (36.3 C) Oral 67 16 97 % General: This is a pleasant cooperative female in [facility]. HEENT: NC/AT, fundi not fully visualized Cardiovascular: Carotid auscultation negative bilaterally. RRR, nomurmurs/gallops/rubs Resp: CTAB, no wheezes/rales/rhonchi Abd: soft, NT, ND Ext: no cyanosis, clubbing, edema, 2/4 pedal pulses bilaterally Mental Status: A+O to person, place, time and situation. Remote and recentmemory intact. Normal language, attention, concentration, fund ofknowledge. Cranial Nerves: II: Visual mejia full to confrontation. Pupils equal, round and reactiveto light, 4-2 mm OU. III, IV, : EOMI. No nystagmus V: Facial sensations symmetric to light touch VII: Facial movements symmetric, smile symmetric VIII: Hearing grossly intact IX, X: Palate raises midline, no uvula deviation XI: Shoulder shrug symmetric XII: Tongue protrudes midline Motor: 5/5 strength in bilateral upper extremities proximally anddistally. Besides some mild pain limitation in the lower extremities, noclear weakness. She has at least 4+/5 bilateral hip flexors and witheffort, 5/5 in the remainder of the lower extremities. Normal muscle bulkand tone in bilateral upper and lower extremities. No spasticity,rigidity or tremor noted. Sensory: Sensation to light touch, temp, and vibration intact in thebilateral upper and lower extremities. Coordination: Finger to nose and rapid alternating movements intact. Nodysmetria or dysdiadochokinesia. Reflexes: 2/4 bilateral biceps, triceps, brachioradialis. 1/4 bilateralpatellar, 1/4 bilateral Achilles. Toes downgoing bilaterally. Gait: Not assessed due to pain complaints Labs and Imaging: Admission on 04/29/2025 Component Date Value WBC 04/29/2025 5.2 RBC 04/29/2025 3.89 (L) Hgb 04/29/2025 12.7 Hct 04/29/2025 37.7 MCV 04/29/2025 96.9 MCH 04/29/2025 32.6 MCHC 04/29/2025 33.7 RDW 04/29/2025 13.1 Platelet 04/29/2025 216 MPV 04/29/2025 9.5 Neut Percent 04/29/2025 42.9 Imm Gran% 04/29/2025 0.0 Lymph Percent 04/29/2025 41.4 Dent Percent 04/29/2025 7.5 Eos Percent 04/29/2025 7.4 Baso Percent 04/29/2025 0.8 Neut # 04/29/2025 2.2 IMMGRAN# 04/29/2025 0.0 Lymph # 04/29/2025 2.1 Dent # 04/29/2025 0.4 Eos# 04/29/2025 0.4 Baso # 04/29/2025 0.0 Sodium 04/29/2025 139 Potassium 04/29/2025 4.0 Chloride 04/29/2025 110 (H) Total CO2 04/29/2025 20 (L) Anion Gap 04/29/2025 9 Calcium 04/29/2025 9.0 Glucose Lvl 04/29/2025 86 BUN 04/29/2025 5 (L) Creatinine 04/29/2025 0.67 Albumin 04/29/2025 3.9 Total Protein 04/29/2025 6.6 Bili Total 04/29/2025 0.4 ALT 04/29/2025 21 AST 04/29/2025 52 (H) Alk Phos 04/29/2025 98 eGFR (CKD-EPIcr 2020) 04/29/2025 111 UA Color 04/29/2025 Colorless UA Appear 04/29/2025 Clear UA Glucose 04/29/2025 Negative UA Ketones 04/29/2025 Negative UA Blood 04/29/2025 Negative UA pH 04/29/2025 6.0 UA Protein 04/29/2025 Negative UA Urobilinogen 04/29/2025 Normal UA Bili 04/29/2025 Negative UA Nitrite 04/29/2025 Negative UA Leuk Est 04/29/2025 Negative UA Spec Grav 04/29/2025 1.006 UA WBC 04/29/2025 <1 UA RBC 04/29/2025 1 UA Squam Epi 04/29/2025 2+ UA Bacteria 04/29/2025 Trace (A) WBC 04/30/2025 3.8 RBC 04/30/2025 3.60 (L) Hgb 04/30/2025 11.9 Hct 04/30/2025 35.5 MCV 04/30/2025 98.6 MCH 04/30/2025 33.1 MCHC 04/30/2025 33.5 RDW 04/30/2025 13.2 Platelet 04/30/2025 176 MPV 04/30/2025 9.6 Neut Percent 04/30/2025 35.8 Imm Gran% 04/30/2025 0.0 Lymph Percent 04/30/2025 45.3 Dent Percent 04/30/2025 11.0 Eos Percent 04/30/2025 7.1 Baso Percent 04/30/2025 0.8 Neut # 04/30/2025 1.4 (L) IMMGRAN# 04/30/2025 0.0 Lymph # 04/30/2025 1.7 Dent # 04/30/2025 0.4 Eos# 04/30/2025 0.3 Baso # 04/30/2025 0.0 Sodium 04/30/2025 143 Potassium 04/30/2025 4.1 Chloride 04/30/2025 114 (H) Total CO2 04/30/2025 22 Anion Gap 04/30/2025 7 Calcium 04/30/2025 8.6 Glucose Lvl 04/30/2025 92 BUN 04/30/2025 4 (L) Creatinine 04/30/2025 0.59 Albumin 04/30/2025 3.3 (L) Total Protein 04/30/2025 5.8 (L) Bili Total 04/30/2025 0.4 ALT 04/30/2025 18 AST 04/30/2025 38 Alk Phos 04/30/2025 78 eGFR (CKD-EPIcr 2020) 04/30/2025 115 WBC 05/01/2025 6.1 RBC 05/01/2025 3.96 Hgb 05/01/2025 13.0 Hct 05/01/2025 38.7 MCV 05/01/2025 97.7 MCH 05/01/2025 32.8 MCHC 05/01/2025 33.6 RDW 05/01/2025 12.9 Platelet 05/01/2025 208 MPV 05/01/2025 9.5 Neut Percent 05/01/2025 87.6 Imm Gran% 05/01/2025 0.5 Lymph Percent 05/01/2025 9.9 Dent Percent 05/01/2025 2.0 Eos Percent 05/01/2025 0.0 Baso Percent 05/01/2025 0.0 Neut # 05/01/2025 5.3 IMMGRAN# 05/01/2025 0.0 Lymph # 05/01/2025 0.6 (L) Dent # 05/01/2025 0.1 (L) Eos# 05/01/2025 0.0 Baso # 05/01/2025 0.0 Sodium 05/01/2025 142 Potassium 05/01/2025 4.1 Chloride 05/01/2025 110 (H) Total CO2 05/01/2025 24 Anion Gap 05/01/2025 8 Calcium 05/01/2025 9.4 Glucose Lvl 05/01/2025 200 (H) BUN 05/01/2025 5 (L) Creatinine 05/01/2025 0.58 Albumin 05/01/2025 3.7 Total Protein 05/01/2025 6.6 Bili Total 05/01/2025 0.3 ALT 05/01/2025 18 AST 05/01/2025 24 Alk Phos 05/01/2025 81 eGFR (CKD-EPIcr 2020) 05/01/2025 115 Total Psa 05/01/2025 <0.04 WBC 05/02/2025 8.3 RBC 05/02/2025 3.69 (L) Hgb 05/02/2025 12.1 Hct 05/02/2025 36.4 MCV 05/02/2025 98.6 MCH 05/02/2025 32.8 MCHC 05/02/2025 33.2 RDW 05/02/2025 13.4 Platelet 05/02/2025 199 MPV 05/02/2025 9.7 Neut Percent 05/02/2025 70.7 Imm Gran% 05/02/2025 0.4 Lymph Percent 05/02/2025 21.5 Dent Percent 05/02/2025 7.3 Eos Percent 05/02/2025 0.0 Baso Percent 05/02/2025 0.1 Neut # 05/02/2025 5.9 IMMGRAN# 05/02/2025 0.0 Lymph # 05/02/2025 1.8 Dent # 05/02/2025 0.6 Eos# 05/02/2025 0.0 Baso # 05/02/2025 0.0 No results found. Impression/Recommendations: This is a 39 y.o. female with a hx of chronic LBP, tobacco abuse, HTN,bipolar disorder and tobacco abuse seen in neurologic evaluation regardingLE weakness/pain. Bilateral lower extremity pain/weakness-with associated back pain s/p fall2 weeks ago. On exam, besides in pain limitation of the hip flexors, I donot appreciate any clear weakness. No sensory changes. History and examare not consistent with AIDP. Suspect much of her complaints are morepain related. She has a longstanding history of chronic low back pain.MRI lumbar spine with L5/S1 changes, but nonsurgical per orthopedics. MRIcervical and thoracic spine benign. Orthopedics recommended follow-upwith PCP or spine. Agree with orthopedics, she would also benefit fromPT. Tobacco abuse-smoking cessation Bipolar disorder-primary team to manage HTN-primary team to manage No further inpatient neurodiagnostics or recommendations. Agree with PTand outpatient follow-up with spine center, PCP or pain management.Neurology will sign off. No need for outpatient neurology follow-up. Neurology Disposition- Will Sign off?: Yes (work up complete) Timeframe for follow-up?: No neurology follow up needed Thank you for allowing me to participate in the care of Juliana Olguin.Please do no hesitate to contact me with any further questions orconcerns. This note was created using voice recognition technology and despiteproof-reading efforts may contain unintended errors. [1] Past Medical History: Diagnosis Date Arthritis Asthma Bipolar 2 disorder (HCC) COPD (chronic obstructive pulmonary disease) (HCC) Diabetes mellitus (HCC) H/O degenerative disc disease [2] Past Surgical History: Procedure Laterality Date YOANDY-EN-Y GASTRIC BYPASS 2017 [3] No family history on file. [4] No current facility-administered medications on file prior to encounter. Current Outpatient Medications on File Prior to Encounter Medication Sig Dispense Refill aspirin 81 mg Oral Tablet, Chewable Take 81 mg by mouth daily. azelastine (ASTELIN) 137 mcg (0.1 %) Nasl Helm, Non-Aerosol 274 mcg ineach nostril 2 times daily. Use in each nostril as directed baclofen (LIORESAL) 10 mg Oral Tablet Take 10 mg by mouth 2 times daily. bumetanide (BUMEX) 2 mg Oral Tablet Take 2 mg by mouth daily. cetirizine (ZYRTEC) 10 mg Oral Tablet Take 10 mg by mouth daily. HYDROcodone-acetaminophen (NORCO) 5-325 mg Oral Tablet Take 1 Tablet bymouth 3 times daily (before meals). LEVOthyroxine (SYNTHROID) 112 mcg Oral Tablet Take 112 mcg by mouthdaily. lithium (LITHOBID) 450 mg Oral Tablet Sustained Release Take 450 mg bymouth 2 times daily. methylphenidate ER 36 mg tablet,extended release 24 hr Take 36 mg bymouth daily. montelukast (SINGULAIR) 10 mg Oral Tablet Take by mouth every evening. naloxegoL (MOVANTIK) 25 mg Oral Tablet Take 25 mg by mouth daily. prochlorperazine (COMPAZINE) 10 mg Oral Tablet Take 10 mg by mouth every6 hours as needed for Nausea or Vomiting. QUEtiapine (SEROQUEL) 100 mg Oral Tablet Take 100 mg by mouth daily at8pm. rosuvastatin (CRESTOR) 20 mg Oral Tablet Take 20 mg by mouth daily. spironolactone (ALDACTONE) 100 mg Oral Tablet Take 100 mg by mouth daily. vortioxetine (TRINTELLIX) 10 mg Oral tablet Take 10 mg by mouth daily. albuterol (PROVENTIL) 2.5 mg /3 mL (0.083 %) Inhl Solution forNebulization Take 2.5 mg by nebulization as needed for Wheezing. budesonide-formoteroL (SYMBICORT) 160-4.5 mcg/actuation Inhl HFA AerosolInhaler Inhale 2 Puffs into the lungs 2 times daily. ketoconazole (NIZORAL) 2 % Top Cream Apply topically 2 times daily asneeded for Itching. norgestimate-ethinyl estradioL (ORTHO-CYCLEN) 0.25-35 mg-mcg Oral TabletTake 1 Tablet by mouth daily. Indications: abnormal bleeding from theuterus (Patient not taking: Reported on 01/09/2022) OXcarbazepine (TRILEPTAL) 300 mg Oral Tablet Take 300 mg by mouth 2 timesdaily. Indications: mood stablization (Patient not taking: Reported on04/29/2025 Indications: mood stablization) oxybutynin (DITROPAN) 5 mg Oral Tablet Take 5 mg by mouth 2 times daily. [5] Allergies Allergen Reactions Avelox [Moxifloxacin] CBC WITH DIFF Early AM 05/01/2025 5:56 AM EDT COMPREHENSIVE METABOLIC PANEL Early AM 05/01/2025 5:56 AM EDT MRI THORACIC SPINE WO CONTRAST STAT 04/30/2025 5:15 PM EDT MRI CERVICAL SPINE WO CONTRAST STAT 04/30/2025 5:15 PM EDT IP CONSULT TO WOUND CARE Routine 04/30/2025 10:38 AM EDT CBC WITH DIFF Early AM 04/30/2025 4:50 AM EDT COMPREHENSIVE METABOLIC PANEL Early AM 04/30/2025 4:50 AM EDT MRI LUMBAR SPINE WO CONTRAST STAT 04/29/2025 5:11 PM EDT IP CONSULT TO WOUND CARE Routine 04/29/2025 4:35 PM EDT IP CONSULT TO ORTHOPEDIC SURGERY Routine 04/29/2025 3:29 PM EDT Procedure Note - Ev Tapia PA-C - 04/30/2025 7:31 AM EDTThis note is in progress. Images from the original note were not included. [phone] [facility] - Spine Ev Tapia PA-C Date of Admission: 04/29/2025 Date of Consult: 04/30/2025 Referring Physician: Eric Gerardo MD Primary Care Physician: Ryan Love MD A/P: - MRI reviewed. Overall mild lumbar spine degenerative changes withouthigh-grade neuroforaminal or canal stenosis. Facet synovitis at L4-L5 ispossibly degenerative. - Patient unable to perform motor strength testing BLE d/t weakness/pain.No severe pathology on MRI to explain. Will obtain MRI thoracic spine andMRI cervical spine for further evaluation. Patient was ambulating lastnight to bathroom with assistance. - Add decadron Discussed with Dr. Whyte S: Juliana Olguin is a 39 y.o. female who presents w c/o back pain. Fell 10 days ago on lower back Pain since then Pain radiates RLE Sees PM in [place] and gets injections, last one was a few months agowithout relief Chronic occasional bowel/bladder incontinence and this is worse N/T RLE to foot Reports legs feel weak x 2 days, had to use wheelchair on arrival to ED Patient reports ambulated to bathroom with assistance last night Denies neck pain Denies BUE pain, N/T/weakness Denies difficulty using arms/hands O: Vital Signs BP 114/69 (BP Location: Right arm, Patient Position: Semi Fowlers) Pulse 58 Temp 98.1 F (36.7 C) (Oral) Resp 16 Ht 5' 11 (1.803m) Wt (!) 307 lb (139.3 kg) LMP 09/13/2011 SpO2 100% BMI 42.82kg/m Physical Exam GENERAL: Lying in bed, appears comfortable RESPIRATORY: Pulmonary effort is normal. No respiratory distress. HENT: Head: Normocephalic and atraumatic. NECK: supple, ROM within normal limits and without pain. SPINE: Decrease ROM secondary to pain. Upper extremities: Motor strength 5/5 bilaterally Negative fuentes sign bilaterally Lower extremities: No c/c/e. Vasculature intact. Motor strength 0-1/5 Unable to perform straight leg raise NEUROLOGIC: Normal deep tendon reflexes No clonus Sensory: Touch: Right Upper Extremity: normal Left Upper Extremity: normal Right Lower Extremity: normal Left Lower Extremity: normal PSYCHIATRIC: Appropriate mood and affect Radiology/ Procedures/Labs Pertinent imaging and laboratory studies were reviewed. MRI LUMBAR SPINE WO CONTRAST Result Date: 04/29/2025 MRI LUMBAR SPINE WITHOUT CONTRAST, 04/29/2025 5:11 PM CLINICAL HISTORY:-Fall 12 days ago, lower back pain, recent urinary and stool incontinence.COMPARISON: MRI 12/23/2022. PROCEDURE COMMENTS: Multiplanar multiecho MRimaging of the lumbar spine without contrast. FINDINGS: Countingreference: The L4-5 disc space is at the level of the iliac crest. Thereare 5 lumbar type vertebra. Visualized spinal cord is unremarkable. Nosubstantial listhesis. Maintained vertebral body heights. No suspiciousfocal marrow replacing lesions. Level by level analysis: L1-L2:Unremarkable L2-L3: Unremarkable L3-L4: Disc bulge narrowing thesubarticular zones. Mild facet arthropathy. Neuroforamina are patent. Mildcanal stenosis. L4-L5: Disc bulge narrowing the subarticular zones. Mildfacet arthropathy with inflammatory changes surrounding the facet joints.Neuroforamina are patent. Mild canal stenosis. L5-S1: Moderate to severedisc space narrowing with type II endplate changes. Disc bulge withsuperimposed central extrusion and annular fissure. There is narrowing ofthe right greater than left subarticular zones with abutment of thedescending S1 nerves. Mild left greater than right facet arthropathy. Mildright neuroforaminal stenosis. Canal is patent Overall mild lumbar spine degenerative changes without high-gradeneuroforaminal or canal stenosis. Facet synovitis at L4-L5 is possiblydegenerative. - Note: Radiology results need to be interpreted within acomprehensive clinical context. If you have questions about the radiologyreport, please contact the office of the ordering clinician. Ev Tapia PA-C 04/30/2025 7:31 AM Parts of this note may have been created by a chart review, combined bytaking my own patient history. The patient was physically seen andexamined by myself, including a personal review of images, tests, andformation of the impression and plan. In addition, unintendedtypographical errors may be present. ADMIT Routine 04/29/2025 2:23 PM EDT CBC WITH DIFF STAT 04/29/2025 10:35 AM EDT COMPREHENSIVE METABOLIC PANEL STAT 04/29/2025 10:35 AM EDT URINALYSIS REFLEX STAT 04/29/2025 10:27 AM EDT UA W/REFLEX TO CULTURE STAT 04/29/2025 10:27 AM EDT EXTRA CRUZ URINE CX STAT 04/29/2025 10:27 AM EDT SALINE LOCK IV STAT 04/29/2025 9:57 AM EDT documented in this encounter Results * (ABNORMAL) CBC WITH DIFF (05/02/2025 5:19 AM EDT) WBC 8.3 3.7 - 10.3 x10(3)/mcL 05/02/2025 5:47 AM EDT [facility] RBC 3.69(L) 3.90 - 5.20 x10(6)/mcL 05/02/2025 5:47 AM EDT [facility] Hgb 12.1 11.2 - 15.7 g/dL 05/02/2025 5:47 AM EDT [facility] Hct 36.4 34.0 - 45.0 % 05/02/2025 5:47 AM EDT [facility] MCV 98.6 80.0 - 100.0 fL 05/02/2025 5:47 AM EDT [facility] MCH 32.8 26.0 - 34.0 pg 05/02/2025 5:47 AM EDT [facility] MCHC 33.2 30.7 - 35.5 g/dL 05/02/2025 5:47 AM EDT [facility] RDW 13.4 <=14.9 % 05/02/2025 5:47 AM EDT [facility] Platelet 199 155 - 369 x10(3)/mcL 05/02/2025 5:47 AM EDT [facility] MPV 9.7 8.8 - 12.5 fL 05/02/2025 5:47 AM EDT [facility] Neut Percent 70.7 % 05/02/2025 5:47 AM EDT [facility] Comment:Neutrophils equals s egs plus bands Imm Gran% 0.4 % 05/02/2025 5:47 AM EDT [facility] Comment:Automated count of m etamyelocytes, myelocytes and promyelocytes. Lymph Percent 21.5 % 05/02/2025 5:47 AM EDT [facility] Dent Percent 7.3 % 05/02/2025 5:47 AM EDT [facility] Eos Percent 0.0 % 05/02/2025 5:47 AM EDT [facility] Baso Percent 0.1 % 05/02/2025 5:47 AM EDT [facility] Neut # 5.9 1.6 - 6.1 x10(3)/[facility] 05/02/2025 5:47 AM EDT [facility] Comment:Neutrophils equals s egs plus bands IMMGRAN# 0.0 0.0 - 0.1 x10(3)/[facility] 05/02/2025 5:47 AM EDT [facility] Comment:Automated count of m etamyelocytes, myelocytes and promyelocytes. An absolute IG <0.1 is reported as 0.0. Lymph # 1.8 1.2 - 3.9 x10(3)/[facility] 05/02/2025 5:47 AM EDT [facility] Dent # 0.6 0.3 - 0.9 x10(3)/[facility] 05/02/2025 5:47 AM EDT [facility] Eos# 0.0 0.0 - 0.5 x10(3)/[facility] Baso # 0.0 0.0 - 0.1 x10(3)/[facility] 05/02/2025 5:[facility] Blood VENOUS BLOOD / Unknown Venipuncture / Unknown 05/02/2025 5:19 AM EDT 05/02/2025 5:44 AM EDT us Eric Gerardo MD HEMATOLOGY ORDERABLES Final Re sult Performing Organization Address [facility] de Phone Number [facility] [address] [place] [address] * PSA - TOTAL W/ REFLEX TO FREE PSA (05/01/2025 2:25 PM EDT) Pathologist [facility] Total Psa <0.04 <=4.00 ng/mL 05/01/2025 6:49 PM EDT [facility] Blood VENOUS BLOOD / Unknown Venipuncture / Unknown 05/01/2025 2:25 PM EDT 05/01/2025 2:34 PM EDT Narrative [facility] - 05/01/2025 6:49 PM EDT The Ami Elecsys total PSA electrochemiluminescence (ECLIA) immunoassay is used. Results obtained with different test methods or kits cannot be used interchangeably. The Ami method is approved for use as an aid in the detection of prostate cancer when used in conjunction with a digital rectal exam in individuals with a prostate aged 50 years or older. The assay is also indicated for the serial measurement of PSA to aid in the prognosis and management of prostate cancer patients. Elevated tPSA concentrations can only suggest the presence of prostate cancer until biopsy is performed. Levels may also be elevated in benign prostatic hyperplasia or inflammatory conditions of the prostate. us Eric Gerardo MD CHEMISTRY ORDERABLES Final Res ult Performing Organization Address [facility] Co de Phone Number [employer] [address] [place] [address] , [place] [address] * (ABNORMAL) COMPREHENSIVE METABOLIC PANEL (05/01/2025 5:56 AM EDT) Sodium 142 136 - 145 mmol/L 05/01/2025 6:27 AM EDT [facility] Potassium 4.1 3.5 - 5.0 mmol/L 05/01/2025 6:27 AM EDT [facility] Chloride 110(H) 98 - 107 mmol/L 05/01/2025 6:27 AM EDT [facility] Total CO2 24 22 - 29 mmol/L 05/01/2025 6:27 AM EDT [facility] Anion Gap 8 7 - 16 mmol/L 05/01/2025 6:27 AM EDT [facility] Calcium 9.4 8.6 - 10.4 mg/dL 05/01/2025 6:27 AM EDT [facility] Glucose Lvl 200(H) 70 - 99 mg/dL 05/01/2025 6:27 AM EDT [facility] BUN 5(L) 6 - 20 mg/dL 05/01/2025 6:27 AM EDT [facility] Creatinine 0.58 0.51 - 1.30 mg/dL 05/01/2025 6:27 AM EDT [facility] Albumin 3.7 3.5 - 5.2 gm/dL 05/01/2025 6:27 AM EDT [facility] Total Protein 6.6 6.4 - 8.3 gm/dL 05/01/2025 6:27 AM EDT [facility] Bili Total 0.3 0.2 - 1.3 mg/dL 05/01/2025 6:27 AM EDT [facility] ALT 18 <=41 U/L 05/01/2025 6:27 AM EDT [facility] AST 24 <=40 U/L 05/01/2025 6:27 AM T [facility] Alk Phos 81 36 - 123 U/L 05/01/2025 6:27 AM T [facility] eGFR (CKD-EPIcr 2020) 115 >=60 mL/min/1.7 3 m2 05/01/2025 6:27 AM T [facility] Comment:Estimated GFR was ca lculated using the CKD-EPIcr (2020) equation refit without race. The equation is recommended by the [employer] - [place] [employer] Neph[employer] Task Force. Blood VENOUS BLOOD / Unknown Venipuncture / Unknown 05/01/2025 5:56 AM EDT 05/01/2025 6:05 AM EDT Eric Gerardo MD CHEMISTRY ORDERABLES Final Res ult [facility] [address] [facility] [place] [address] * (ABNORMAL) CBC WITH DIFF (05/01/2025 5:56 AM EDT) WBC 6.1 3.7 - 10.3 x10(3)/mcL 05/01/2025 6:09 AM EDT [facility] RBC 3.96 3.90 - 5.20 x10(6)/mcL 05/01/2025 6:09 AM EDT [facility] Hgb 13.0 11.2 - 15.7 g/dL 05/01/2025 6:09 AM EDT [facility] Hct 38.7 34.0 - 45.0 % 05/01/2025 6:09 AM EDT [facility] MCV 97.7 80.0 - 100.0 fL 05/01/2025 6:09 AM EDT [facility] MCH 32.8 26.0 - 34.0 pg 05/01/2025 6:09 AM EDT [facility] MCHC 33.6 30.7 - 35.5 g/dL 05/01/2025 6:09 AM EDT [facility] RDW 12.9 <=14.9 % 05/01/2025 6:09 AM EDT [facility] Platelet 208 155 - 369 x10(3)/mcL 05/01/2025 6:09 AM EDT [facility] MPV 9.5 8.8 - 12.5 fL 05/01/2025 6:09 AM EDT [facility] Neut Percent 87.6 % 05/01/2025 6:09 AM EDT [facility] Comment:Neutrophils equals s egs plus bands Imm Gran% 0.5 % 05/01/2025 6:09 AM EDT [facility] Comment:Automated count of m etamyelocytes, myelocytes and promyelocytes. Lymph Percent 9.9 % 05/01/2025 6:09 AM EDT [facility] Dent Percent 2.0 % 05/01/2025 6:09 AM EDT [facility] Eos Percent 0.0 % 05/01/2025 6:09 AM EDT [facility] Baso Percent 0.0 % 05/01/2025 6:09 AM EDT [facility] Neut # 5.3 1.6 - 6.1 x10(3)/mcL 05/01/2025 6:09 AM EDT [facility] Comment:Neutrophils equals s egs plus bands IMMGRAN# 0.0 0.0 - 0.1 x10(3)/mcL 05/01/2025 6:09 AM EDT [facility] Comment:Automated count of m etamyelocytes, myelocytes and promyelocytes. An absolute IG <0.1 is reported as 0.0. Lymph # 0.6(L) 1.2 - 3.9 x10(3)/mcL 05/01/2025 6:09 AM EDT [facility] Dent # 0.1(L) 0.3 - 0.9 x10(3)/mcL 05/01/2025 6:09 AM EDT [facility] Eos# 0.0 0.0 - 0.5 x10(3)/mcL 05/01/2025 6:09 AM EDT [facility] Baso # 0.0 0.0 - 0.1 x10(3)/mcL 05/01/2025 6:09 AM EDT [facility] Blood VENOUS BLOOD / Unknown Venipuncture / Unknown 05/01/2025 5:56 AM EDT 05/01/2025 6:05 AM EDT us Eric Gerardo MD HEMATOLOGY ORDERABLES Final Re sult [facility] [address] [place] [address] * MRI THORACIC SPINE WO CONTRAST (04/30/2025 5:15 PM EDT) Anatomical Region Laterality Modality T-spine Magnetic Resonan ce 04/30/2025 5:15 PM EDT Impressions 04/30/2025 5:37 PM EDT No acute abnormality of the thoracic spine. - Note: Radiology results need to be interpreted within a comprehensive clinical context. If you have questions about the radiology report, please contact the office of the ordering clinician. Narrative 04/30/2025 5:37 PM EDT MRI THORACIC SPINE WITHOUT CONTRAST, 04/30/2025 5:15 PM CLINICAL HISTORY: -BLE weakness. COMPARISON: None. PROCEDURE COMMENTS: Multiplanar multiecho MR imaging of the thoracic spine. Sagittal imaging of the entire thoracic spine with selected axial imaging. FINDINGS: No malalignment or concerning marrow signal abnormality. Cord signal unremarkable. No significant dorsal disc pathology, central stenosis, or foraminal stenosis. No significant abnormality of the paraspinous tissues. Procedure Note Jareth Almaguer MD - 04/30/2025 MRI THORACIC SPINE WITHOUT CONTRAST, 04/30/2025 5:15 PM CLINICAL HISTORY: -BLE weakness. COMPARISON: None. PROCEDURE COMMENTS: Multiplanar multiecho MR imaging of the thoracicspine. Sagittal imaging of the entire thoracic spine with selected axial imaging. FINDINGS: No malalignment or concerning marrow signal abnormality. Cord signal unremarkable. No significant dorsal disc pathology, central stenosis, or foraminalstenosis. No significant abnormality of the paraspinous tissues. IMPRESSION: No acute abnormality of the thoracic spine. - Note: Radiology results need to be interpreted within a comprehensiveclinical context. If you have questions about the radiology report, please contactthe office of the ordering clinician. us Silverio Whyte MD IM MRI ORDERABLES Final Res ult * MRI CERVICAL SPINE WO CONTRAST (04/30/2025 5:15 PM EDT) Anatomical Region Laterality Modality Spine, C-spine Magnetic Resonan ce 04/30/2025 5:15 PM EDT Impressions 04/30/2025 5:39 PM EDT Minor discogenic changes without neural compression. No cord signal alteration. - Note: Radiology results need to be interpreted within a comprehensive clinical context. If you have questions about the radiology report, please contact the office of the ordering clinician. Narrative 04/30/2025 5:39 PM EDT MR CERVICAL SPINE WITHOUT CONTRAST, 04/30/2025 5:15 PM CLINICAL HISTORY: -BLE weakness. COMPARISON: None. PROCEDURE COMMENTS: Multiplanar multiecho MR imaging of the cervical spine per protocol. FINDINGS: No malalignment or concerning marrow signal abnormality. Cord signal unremarkable. There is minor broad-based disc bulge present at C4-5 and C5-6 and C6-7 without significant central stenosis or foraminal narrowing Procedure Note Jareth Almaguer MD - 04/30/2025 MR CERVICAL SPINE WITHOUT CONTRAST, 04/30/2025 5:15 PM CLINICAL HISTORY: -BLE weakness. COMPARISON: None. PROCEDURE COMMENTS: Multiplanar multiecho MR imaging of the cervical spineper protocol. FINDINGS: No malalignment or concerning marrow signal abnormality. Cord signal unremarkable. There is minor broad-based disc bulge present at C4-5 and C5-6 and C6-7without significant central stenosis or foraminal narrowing IMPRESSION: Minor discogenic changes without neural compression. No cord signal alteration. - Note: Radiology results need to be interpreted within a comprehensiveclinical context. If you have questions about the radiology report, please contactthe office of the ordering clinician. Silverio Whyte MD IM MRI ORDERABLES Final Res ult * (ABNORMAL) COMPREHENSIVE METABOLIC PANEL (04/30/2025 4:50 AM EDT) Sodium 143 136 - 145 mmol/L 04/30/2025 5:27 AM EDT [facility] Potassium 4.1 3.5 - 5.0 mmol/L 04/30/2025 5:27 AM EDT [facility] Chloride 114(H) 98 - 107 mmol/L 04/30/2025 5:27 AM EDT [facility] Total CO2 22 22 - 29 mmol/L 04/30/2025 5:27 AM EDT [facility] Anion Gap 7 7 - 16 mmol/L 04/30/2025 5:27 AM EDT [facility] Calcium 8.6 8.6 - 10.4 mg/dL 04/30/2025 5:27 AM EDT [facility] Glucose Lvl 92 70 - 99 mg/dL 04/30/2025 5:27 AM EDT [facility] BUN 4(L) 6 - 20 mg/dL 04/30/2025 5:27 AM EDT [facility] Creatinine 0.59 0.51 - 1.30 mg/dL 04/30/2025 5:27 AM EDT [facility] Albumin 3.3(L) 3.5 - 5.2 gm/dL 04/30/2025 5:27 AM EDT [facility] Total Protein 5.8(L) 6.4 - 8.3 gm/dL 04/30/2025 5:27 AM EDT [facility] Bili Total 0.4 0.2 - 1.3 mg/dL 04/30/2025 5:27 AM EDT [facility] ALT 18 <=41 U/L 04/30/2025 5:27 AM EDT [facility] AST 38 <=40 U/L 04/30/2025 5:27 AM EDT [facility] Alk Phos 78 36 - 123 U/L 04/30/2025 5:27 AM EDT [facility] eGFR (CKD-EPIcr 2020) 115 >=60 mL/min/1.7 3 m2 04/30/2025 5:27 AM EDT [facility] Comment:Estimated GFR was ca lculated using the CKD-EPIcr (2020) equation refit without race. The equation is recommended by the National Kid[employer] - [place] [employer] Nephrology Task Force. Blood VENOUS BLOOD / Unknown Venipuncture / Unknown 04/30/2025 4:50 AM EDT 04/30/2025 5:03 AM EDT us Eric Gerardo MD CHEMISTRY ORDERABLES Final Res ult [facility] [address] [place] [address] * (ABNORMAL) CBC WITH DIFF (04/30/2025 4:50 AM EDT) WBC 3.8 3.7 - 10.3 x10(3)/mcL 04/30/2025 5:06 AM EDT [facility] RBC 3.60(L) 3.90 - 5.20 x10(6)/mcL 04/30/2025 5:06 AM EDT [facility] Hgb 11.9 11.2 - 15.7 g/dL 04/30/2025 5:06 AM EDT [facility] Hct 35.5 34.0 - 45.0 % 04/30/2025 5:06 AM EDT [facility] MCV 98.6 80.0 - 100.0 fL 04/30/2025 5:06 AM EDT [facility] MCH 33.1 26.0 - 34.0 pg 04/30/2025 5:06 AM EDT [facility] MCHC 33.5 30.7 - 35.5 g/dL 04/30/2025 5:06 AM EDT [facility] RDW 13.2 <=14.9 % 04/30/2025 5:06 AM EDT [facility] Platelet 176 155 - 369 x10(3)/mcL 04/30/2025 5:06 AM EDT [facility] MPV 9.6 8.8 - 12.5 fL 04/30/2025 5:06 AM EDT [facility] Neut Percent 35.8 % 04/30/2025 5:06 AM EDT [facility] Comment:Neutrophils equals s egs plus bands Imm Gran% 0.0 % 04/30/2025 5:06 AM EDT [facility] Comment:Automated count of m etamyelocytes, myelocytes and promyelocytes. Lymph Percent 45.3 % 04/30/2025 5:06 AM EDT [facility] Dent Percent 11.0 % 04/30/2025 5:06 AM EDT [facility] Eos Percent 7.1 % 04/30/2025 5:06 AM EDT [facility] Baso Percent 0.8 % 04/30/2025 5:06 AM EDT [facility] Neut # 1.4(L) 1.6 - 6.1 x10(3)/mcL 04/30/2025 5:06 AM EDT [facility] Comment:Neutrophils equals s egs plus bands IMMGRAN# 0.0 0.0 - 0.1 x10(3)/mcL 04/30/2025 5:06 AM EDT [facility] Comment:Automated count of m etamyelocytes, myelocytes and promyelocytes. An absolute IG <0.1 is reported as 0.0. Lymph # 1.7 1.2 - 3.9 x10(3)/mcL 04/30/2025 5:06 AM EDT [facility] Dent # 0.4 0.3 - 0.9 x10(3)/mcL 04/30/2025 5:06 AM EDT [facility] Eos# 0.3 0.0 - 0.5 x10(3)/mcL 04/30/2025 5:06 AM EDT [facility] Baso # 0.0 0.0 - 0.1 x10(3)/mcL 04/30/2025 5:06 AM EDT [facility] Blood VENOUS BLOOD / Unknown Venipuncture / Unknown 04/30/2025 4:50 AM EDT 04/30/2025 5:04 AM EDT us Eric Gerardo MD HEMATOLOGY ORDERABLES Final Re sult [facility] [address], [place] [id number] * MRI LUMBAR SPINE WO CONTRAST (04/29/2025 5:11 PM EDT) Anatomical Region Laterality Modality Spine, L-spine Magnetic Resonan ce 04/29/2025 5:11 PM EDT Impressions 04/29/2025 5:46 PM EDT Overall mild lumbar spine degenerative changes without high-grade neuroforaminal or canal stenosis. Facet synovitis at L4-L5 is possibly degenerative. - Note: Radiology results need to be interpreted within a comprehensive clinical context. If you have questions about the radiology report, please contact the office of the ordering clinician. Narrative 04/29/2025 5:46 PM EDT MRI LUMBAR SPINE WITHOUT CONTRAST, 04/29/2025 5:11 PM CLINICAL HISTORY: -Fall 12 days ago, lower back pain, recent urinary and stool incontinence. COMPARISON: MRI 12/23/2022. PROCEDURE COMMENTS: Multiplanar multiecho MR imaging of the lumbar spine without contrast. FINDINGS: Counting reference: The L4-5 disc space is at the level of the iliac crest. There are 5 lumbar type vertebra. Visualized spinal cord is unremarkable. No substantial listhesis. Maintained vertebral body heights. No suspicious focal marrow replacing lesions. Level by level analysis: L1-L2: Unremarkable L2-L3: Unremarkable L3-L4: Disc bulge narrowing the subarticular zones. Mild facet arthropathy. Neuroforamina are patent. Mild canal stenosis. L4-L5: Disc bulge narrowing the subarticular zones. Mild facet arthropathy with inflammatory changes surrounding the facet joints. Neuroforamina are patent. Mild canal stenosis. L5-S1: Moderate to severe disc space narrowing with type II endplate changes. Disc bulge with superimposed central extrusion and annular fissure. There is narrowing of the right greater than left subarticular zones with abutment of the descending S1 nerves. Mild left greater than right facet arthropathy. Mild right neuroforaminal stenosis. Canal is patent Procedure Note Darron Dorado MD - 04/29/2025 MRI LUMBAR SPINE WITHOUT CONTRAST, 04/29/2025 5:11 PM CLINICAL HISTORY: -Fall 12 days ago, lower back pain, recent urinary andstool incontinence. COMPARISON: MRI 12/23/2022. PROCEDURE COMMENTS: Multiplanar multiecho MR imaging of the lumbar spinewithout contrast. FINDINGS: Counting reference: The L4-5 disc space is at the level of the iliaccrest. There are 5 lumbar type vertebra. Visualized spinal cord is unremarkable. No substantial listhesis. Maintained vertebral body heights. No suspiciousfocal marrow replacing lesions. Level by level analysis: L1-L2: Unremarkable L2-L3: Unremarkable L3-L4: Disc bulge narrowing the subarticular zones. Mild facetarthropathy. Neuroforamina are patent. Mild canal stenosis. L4-L5: Disc bulge narrowing the subarticular zones. Mild facet arthropathywith inflammatory changes surrounding the facet joints. Neuroforamina arepatent. Mild canal stenosis. L5-S1: Moderate to severe disc space narrowing with type II endplatechanges. Disc bulge with superimposed central extrusion and annular fissure. Thereis narrowing of the right greater than left subarticular zones with abutmentof the descending S1 nerves. Mild left greater than right facet arthropathy. Mildright neuroforaminal stenosis. Canal is patent IMPRESSION: Overall mild lumbar spine degenerative changes without high-gradeneuroforaminal or canal stenosis. Facet synovitis at L4-L5 is possibly degenerative. - Note: Radiology results need to be interpreted within a comprehensiveclinical context. If you have questions about the radiology report, please contactthe office of the ordering clinician. us Shawn Galindo MD IM MRI ORDERABLES Final Resul t * (ABNORMAL) COMPREHENSIVE METABOLIC PANEL (04/29/2025 10:35 AM EDT) Sodium 139 136 - 145 mmol/L 04/29/2025 10:58 AM EDT [facility] Potassium 4.0 3.5 - 5.0 mmol/L 04/29/2025 10:58 AM EDT [facility] Chloride 110(H) 98 - 107 mmol/L 04/29/2025 10:58 AM EDT [facility] Total CO2 20(L) 22 - 29 mmol/L 04/29/2025 10:58 AM EDT [facility] Anion Gap 9 7 - 16 mmol/L 04/29/2025 10:58 AM EDT [facility] Calcium 9.0 8.6 - 10.4 mg/dL 04/29/2025 10:58 AM EDT [facility] Glucose Lvl 86 70 - 99 mg/dL 04/29/2025 10:58 AM EDT [facility] BUN 5(L) 6 - 20 mg/dL 04/29/2025 10:58 AM EDT [facility] Creatinine 0.67 0.51 - 1.30 mg/dL 04/29/2025 10:58 AM EDT [facility] Albumin 3.9 3.5 - 5.2 gm/dL 04/29/2025 10:58 AM EDT [facility] Total Protein 6.6 6.4 - 8.3 gm/dL 04/29/2025 10:58 AM EDT [facility] Bili Total 0.4 0.2 - 1.3 mg/dL 04/29/2025 10:58 AM EDT [facility] ALT 21 <=41 U/L 04/29/2025 10:58 AM EDT [facility] AST 52(H) <=40 U/L 04/29/2025 10:58 AM EDT [facility] Alk Phos 98 36 - 123 U/L 04/29/2025 10:58 AM EDT [facility] eGFR (CKD-EPIcr 2020) 111 >=60 mL/min/1.7 3 m2 04/29/2025 10:58 AM EDT [facility] Comment:Estimated GFR was ca lculated using the CKD-EPIcr (2020) equation refit without race. The equation is recommended by the [employer] - [place] [employer] Nephrology Task Force. Blood VENOUS BLOOD / Unknown Venipuncture / Unknown 04/29/2025 10:35 AM EDT 04/29/2025 10:38 AM EDT us Shawn Galindo MD CHEMISTRY ORDERABLES Final Res ult [facility] [address] [place] [address] * (ABNORMAL) CBC WITH DIFF (04/29/2025 10:35 AM EDT) WBC 5.2 3.7 - 10.3 x10(3)/mcL 04/29/2025 10:41 AM EDT [facility] RBC 3.89(L) 3.90 - 5.20 x10(6)/mcL 04/29/2025 10:41 AM EDT [facility] Hgb 12.7 11.2 - 15.7 g/dL 04/29/2025 10:41 AM EDT [facility] Hct 37.7 34.0 - 45.0 % 04/29/2025 10:41 AM EDT [facility] MCV 96.9 80.0 - 100.0 fL 04/29/2025 10:41 AM EDT [facility] MCH 32.6 26.0 - 34.0 pg 04/29/2025 10:41 AM EDT [facility] MCHC 33.7 30.7 - 35.5 g/dL 04/29/2025 10:41 AM EDT [facility] RDW 13.1 <=14.9 % 04/29/2025 10:41 AM EDT [facility] Platelet 216 155 - 369 x10(3)/mcL 04/29/2025 10:41 AM EDT [facility] MPV 9.5 8.8 - 12.5 fL 04/29/2025 10:41 AM EDT [facility] Neut Percent 42.9 % 04/29/2025 10:41 AM EDT [facility] Comment:Neutrophils equals s egs plus bands Imm Gran% 0.0 % 04/29/2025 10:41 AM EDT [facility] Comment:Automated count of m etamyelocytes, myelocytes and promyelocytes. Lymph Percent 41.4 % 04/29/2025 10:41 AM EDT [facility] Dent Percent 7.5 % 04/29/2025 10:41 AM EDT [facility] Eos Percent 7.4 % 04/29/2025 10:41 AM EDT [facility] Baso Percent 0.8 % 04/29/2025 10:41 AM EDT [facility] Neut # 2.2 1.6 - 6.1 x10(3)/mcL 04/29/2025 10:41 AM EDT [facility] Comment:Neutrophils equals s egs plus bands IMMGRAN# 0.0 0.0 - 0.1 x10(3)/mcL 04/29/2025 10:41 AM EDT [facility] Comment:Automated count of m etamyelocytes, myelocytes and promyelocytes. An absolute IG <0.1 is reported as 0.0. Lymph # 2.1 1.2 - 3.9 x10(3)/mcL 04/29/2025 10:41 AM EDT [facility] Dent # 0.4 0.3 - 0.9 x10(3)/mcL 04/29/2025 10:41 AM EDT [facility] Eos# 0.4 0.0 - 0.5 x10(3)/mcL 04/29/2025 10:41 AM EDT [facility] Baso # 0.0 0.0 - 0.1 x10(3)/mcL 04/29/2025 10:41 AM EDT [facility] Blood VENOUS BLOOD / Unknown Venipuncture / Unknown 04/29/2025 10:35 AM EDT 04/29/2025 10:38 AM EDT us Shawn Galindo MD HEMATOLOGY ORDERABLES Final Re sult Performing Organization Address [facility] de Phone Number [facility] [address] [place] [address] * EXTRA CRUZ URINE CX (04/29/2025 10:27 AM EDT) Urine STRUCTURE OF URINARY TRACT PROPER / Unknown 04/29/2025 10:27 AM EDT 04/29/2025 10:38 AM EDT us Shawn Galindo MD MICROBIOLOGY - GENERAL ORDERAB LES Final Result Performing Organization Address [facility] de Phone Number [facility] [address] [place] [address] * (ABNORMAL) URINALYSIS REFLEX (04/29/2025 10:27 AM EDT) UA Color Colorless 04/29/2025 10:50 AM EDT [facility] UA Appear Clear Clear 04/29/2025 10:50 AM EDT [facility] UA Glucose Negative Negative mg/dL 04/29/2025 10:50 AM EDT [facility] UA Ketones Negative Negative mg/dL 04/29/2025 10:50 AM EDT [facility] UA Blood Negative Negative 04/29/2025 10:50 AM EDT [facility] UA pH 6.0 5.0 - 8.0 pH 04/29/2025 10:50 AM EDT [facility] UA Protein Negative Negative mg/dL 04/29/2025 10:50 AM EDT [facility] UA Urobilinogen Normal <=1 mg/dL 10:50 AM EDT [facility] UA Bili Negative Negative 04/29/2025 10:50 AM EDT [facility] UA Nitrite Negative Negative 04/29/2025 10:50 AM EDT [facility] UA Leuk Est Negative Negative 04/29/2025 10:50 AM EDT [facility] UA Spec Grav 1.006 1.001 - 1.035 no units 04/29/2025 10:50 AM EDT [facility] Comment:Reference range carlos d for random specimens only. UA WBC <1 0 - 4 /HPF 04/29/2025 10:50 AM EDT [facility] UA RBC 1 0 - 3 /HPF 04/29/2025 10:50 AM EDT [facility] UA Squam Epi 2+ /LPF 04/29/2025 10:50 AM EDT [facility] UA Bacteria Trace(A) Negative /HPF 04/29/2025 10:50 AM EDT [facility] Urine STRUCTURE OF URINARY TRACT PROPER / Unknown 04/29/2025 10:27 AM EDT 04/29/2025 10:38 AM EDT us Shawn Galindo MD URINE ORDERABLES Final Result Performing Organization Address City/State/[facility] Co de Phone Number [facility] [address] [phone] documented in this encounter Visit Diagnoses Diagnosis Midline low back pain without sciatica, unspecified chronicity- Primary Midline low back pain without sciatica, unspecified chronicity Difficulty walking Difficulty in walking Urinary incontinence, unspecified type Incontinence of feces, unspecified fecal incontinence type Homeless Lack of housing Intractable back pain Backache, unspecified Bipolar 2 disorder (HCC) Other bipolar disorders ADHD (attention deficit hyperactivity disorder) Attention deficit disorder with hyperactivity Anxiety Anxiety state, unspecified Tobacco abuse Tobacco use disorder Hypertension Unspecified essential hypertension Bilateral leg weakness Other musculoskeletal symptoms referable to limbs Bilateral leg pain Pain in limb documented in this encounter Admitting Diagnoses Diagnosis Midline low back pain without sciatica, unspecified chronicity documented in this encounter Administered Medications Inactive Administered Medications - up to 1 most recent administrations Medication Order MAR Action Action Date Dose Rate Site albuterol (PROVENTIL HFA;VENTOLIN HFA) inhaler 2 Puff 2 Puff, Inhalation, PRN, Starting on Sun04/29/25 at 2158, Until 05/02/25 at 1938, Wheezing, Shortness of Breath, Waste Sort Code = [employer] ALPRAZolam (XanAX) tablet 2 mg 2 mg, Oral, ONCE, 1 dose, On Sun04/29/25 at 1800 Given During Downtime 04/29/2025 4:35 PM EDT 2 mg ALPRAZolam (XanAX) tablet 2 mg 2 mg, Oral, ONCE PRN, 1 dose, Starting on Sun04/30/25 at 1439, Until Sun04/30/25 at 1618, Anxiety Given 04/30/2025 4:18 PM EDT 2 mg aspirin chewable tablet 81 mg 81 mg, Oral, DAILY, First dose on Sun04/30/25 at 1830, Until Discontinued Given 05/02/2025 9:20 AM EDT 81 mg azelastine (ASTELIN) 137 mcg (0.1 %) nasal spray 2 Helm 2 Helm, Each Nare, 2 TIMES DAILY, First dose on Sun04/29/25 at 2300, Until Discontinued Given 05/02/2025 2:47 PM EDT 2 Sprays Both Nares baclofen (LIORESAL) tablet 5 mg 5 mg, Oral, 3 TIMES DAILY PRN, Starting on Sun04/29/25 at 1529, Until 05/02/25 at 1938, Muscle spasms Given 05/01/2025 3:48 PM EDT 5 mg budesonide-formoteroL (SYMBICORT) 160-4.5 mcg/actuation inhaler 2 Puff 2 Puff, Inhalation, 2 TIMES DAILY (RESP CARE), First dose on Sun04/30/25 at 0800, Until Discontinued, Waste Sort Code = [employer] Given 05/02/2025 8:40 AM EDT 2 Puffs bumetanide (BUMEX) tablet 2 mg 2 mg, Oral, DAILY, First dose on Sun04/30/25 at 0915, Until Discontinued, Hold if systolic pressures less than 110. Given 04/30/2025 10:24 AM EDT 2 mg bumetanide (BUMEX) tablet 2 mg 2 mg, Oral, DAILY, First dose on Sun05/01/25 at 1745, Until Discontinued Given 05/02/2025 9:20 AM EDT 2 mg dexAMETHasone (DECADRON) injection 6 mg 6 mg, Intravenous, EVERY 6 HOURS SCHEDULED (4 times per day), 3 doses, First dose on Sun04/30/25 at 1200, Last dose on Sun05/01/25 at 0000 Given 04/30/2025 11:30 PM EDT 6 mg dexAMETHasone (DECADRON) tablet 6 mg 6 mg, Oral, DAILY WITH MEAL, 7 doses, First dose on Sun05/01/25 at 0800, Last dose on Sun05/07/25 at 0800 Given 05/02/2025 7:56 AM EDT 6 mg enoxaparin (LOVENOX) injection 40 mg 40 mg, Subcutaneous, 2 TIMES DAILY, First dose on Sun04/29/25 at 2100, Until Discontinued Given 05/02/2025 9:19 AM EDT 40 mg Abdominal Tissue HYDROmorphone (DILAUDID) injection 0.5 mg 0.5 mg, Intravenous, EVERY 4 HOURS PRN, Starting on Sun04/29/25 at 1528, Until Sun05/01/25 at 1044, Pain Unrelieved by Oral Opioid Therapy Given 04/30/2025 8:48 PM EDT 0.5 mg LEVOthyroxine (SYNTHROID) tablet 112 mcg 112 mcg, Oral, DAILY, First dose on Sun04/30/25 at 0900, Until Discontinued, Take on empty stomach, at least 30 minutes to 1 hour before breakfast. Take at least 4 hours prior before or after calcium- or iron-containing products or bile acid sequestrants. If given via NG or other tubes administer dose as long as possible after feeding and at least 1 hour before resuming feeding. Given 05/02/2025 9:20 AM EDT 112 mcg lithium (LITHOBID) CR tablet 450 mg 450 mg, Oral, 2 TIMES DAILY, First dose on Sun04/29/25 at 2300, Until Discontinued Given 05/02/2025 9:25 AM EDT 450 mg methylphenidate HCl CR tablet 36 mg 36 mg, Oral, DAILY, First dose (after last modification) on Sun04/30/25 at 1000, Until Discontinued, Patient to use home supply of methylphenidate CR. Notify pharmacy when available to verify identity. Do NOT tube home medications, home medications MUST be walked down to pharmacy. miconazole (MICATIN) 2 % powder Topical, 2 TIMES DAILY, 84 doses, First dose on Sun04/30/25 at 1030, Last dose on Sun06/10/25 at 2100, Application site: abdomen & arron area Given 05/02/2025 9:21 AM EDT montelukast (SINGULAIR) tablet 10 mg 10 mg, Oral, EVERY EVENING, First dose on Sun04/29/25 at 2300, Until Discontinued Given 05/01/2025 5:52 PM EDT 10 mg morphine injection 4 mg 4 mg, Intravenous, ONCE, 1 dose, On Sun04/29/25 at 1000 Given 04/29/2025 10:40 AM EDT 4 mg morphine injection 4 mg 4 mg, Intravenous, ONCE, 1 dose, On Sun04/29/25 at 1300 Given 04/29/2025 1:08 PM EDT 4 mg nicotine (NICODERM CQ) 21 mg/24 hr 1 Patch 1 Patch, Transdermal, DAILY, First dose on Sun04/29/25 at 1500, Until Discontinued, Apply to skin every morning, rotating sites. Remove old patch. Patches may be placed anywhere on the upper body, including arms and back (exceptions: do not place on abdomen if ; do not place over any other medication patch, port-a-cath, or pacemaker). Please place used patch, wrapper, and/or empty package in [employer], Administer over 24 Hours Patch Applied 05/02/2025 9:17 AM EDT 1 Patch Right Arm nicotine (NICODERM CQ) patch CHECK Transdermal, NIGHTLY, First dose on Sun04/29/25 at 2100, Until Discontinued, Confirm patch is in place. Remove patch at bedtime for complaint of insomnia or vivid dreams Patch Applied 04/30/2025 9:00 PM EDT 1 Each Right Arm ondansetron (ZOFRAN) injection 4 mg 4 mg, Intravenous, ONCE, 1 dose, On Sun04/29/25 at 1000 Given 04/29/2025 10:40 AM EDT 4 mg ondansetron (ZOFRAN) injection 4 mg 4 mg, Intravenous, EVERY 6 HOURS PRN, Starting on Sun04/29/25 at 2001, Until 05/02/25 at 1938, Nausea ondansetron (ZOFRAN) tablet 4 mg 4 mg, Oral, EVERY 6 HOURS PRN, Starting on Sun04/29/25 at 2001, Until 05/02/25 at 1938, Nausea Given 04/29/2025 8:13 PM EDT 4 mg oxybutynin (DITROPAN) tablet 5 mg 5 mg, Oral, 2 TIMES DAILY, First dose on Elsi 04/30/25 at 0900, Until Discontinued Given 05/02/2025 9:20 AM EDT 5 mg oxyCODONE (OXY-IR) immediate release tablet 7.5 mg 7.5 mg, Oral, EVERY 6 HOURS PRN, Starting on Sun05/01/25 at 1044, Until 05/02/25 at 1938, Pain Given 05/02/2025 2:10 PM EDT 7.5 mg oxyCODONE (ROXICODONE) immediate release tablet 5 mg 5 mg, Oral, EVERY 6 HOURS PRN, Starting on Sun04/29/25 at 1528, Until Elsi 04/30/25 at 0952, Pain Unrelieved by Oral Non-Opioid Therapy, Begin with lowest dose unless otherwise directed. Reassess pain in one hour. If pain unrelieved, remainder of dose may be given to patient. Given 04/30/2025 6:16 AM EDT 5 mg oxyCODONE (ROXICODONE) immediate release tablet 5 mg 5 mg, Oral, EVERY 6 HOURS PRN, Starting on Elsi 04/30/25 at 0952, Until Sun05/01/25 at 1044, Pain, Begin with lowest dose unless otherwise directed. Reassess pain in one hour. If pain unrelieved, remainder of dose may be given to patient. Given 05/01/2025 6:13 AM EDT 5 mg QUEtiapine (SEROquel) tablet 100 mg 100 mg, Oral, DAILY 8PM, First dose on Sun04/29/25 at 2300, Until Discontinued Given 05/01/2025 8:59 PM EDT 100 mg rosuvastatin (CRESTOR) tablet 20 mg 20 mg, Oral, DAILY, First dose on Elsi 04/30/25 at 0900, Until Discontinued Given 05/02/2025 9:19 AM EDT 20 mg spironolactone (ALDACTONE) tablet 100 mg 100 mg, Oral, DAILY, First dose on Elsi 04/30/25 at 0900, Until Discontinued, Hold if systolic pressures less than 110 Given 05/02/2025 9:20 AM EDT 100 mg vortioxetine (TRINTELLIX) tablet 10 mg 10 mg, Oral, DAILY, First dose (after last modification) on Elsi 04/30/25 at 1115, Until Discontinued Given 05/02/2025 9:20 AM EDT 10 mg documented in this encounter Discontinued Medications Medication Sig Discontinue Reason Start Date End Da te zolpidem (AMBIEN) 10 mg Oral Tablet Take by mouth nightly. Removed During Admission Medication Review 04/30/2025 clonazePAM (KLONOPIN) 0.5 mg Oral Tablet Take 0.5 mg by mouth 2 times daily. Removed During Admission Medication Review 04/30/2025 cyclobenzaprine (FLEXERIL) 10 mg Oral TabletIndications:musc le spasm Take 10 mg by mouth 3 times daily. Indications: muscle spasm Removed During Admission Medication Review 01/24/2021 04/30/2025 oxyCODONE (ROXICODONE) 5 mg Oral Tablet Take by mouth 2 times daily. Removed During Admission Medication Review 04/30/2025 traMADoL (ULTRAM) 50 mg Oral TabletIndications:Lumb ar radiculopathy Take 1 tablet by mouth every 6 hours as needed [PRN] Removed During Admission Medication Review 03/14/2021 04/30/2025 VENTOLIN HFA 90 mcg/actuation Inhl HFA Aerosol Inhaler Removed During Admission Medication Review 11/23/2020 04/30/2025 OXcarbazepine (TRILEPTAL) 300 mg Oral TabletIndications:mood stablization Take 300 mg by mouth 2 times daily. Indications: mood stablization Stop Taking at Discharge 05/02/2025 norgestimate-ethinyl estradioL (ORTHO-CYCLEN) 0.25-35 mg-mcg Oral TabletIndications:abno rmal uterine bleeding Take 1 Tablet by mouth daily. Indications: abnormal bleeding from the uterus Stop Taking at Discharge 05/02/2025 HYDROcodone-acetaminop hen (NORCO) 5-325 mg Oral Tablet Take 1 Tablet by mouth 3 times daily (before meals). Stop Taking at Discharge 05/02/2025 documented as of this encounter Historical Medications * This list may reflect changes made after this encounter. vortioxetine (TRINTELLIX) 10 mg Oral tablet Take 10 mg by mouth daily. spironolactone (ALDACTONE) 100 mg Oral Tablet Take 100 mg by mouth daily. rosuvastatin (CRESTOR) 20 mg Oral Tablet Take 20 mg by mouth daily. prochlorperazine (COMPAZINE) 10 mg Oral Tablet Take 10 mg by mouth every 6 hours as needed for Nausea or Vomiting. oxybutynin (DITROPAN) 5 mg Oral Tablet Take 5 mg by mouth 2 times daily. naloxegoL (MOVANTIK) 25 mg Oral Tablet Take 25 mg by mouth daily. montelukast (SINGULAIR) 10 mg Oral Tablet Take by mouth every evening. methylphenidate ER 36 mg tablet,extended release 24 hr Take 36 mg by mouth daily. lithium (LITHOBID) 450 mg Oral Tablet Sustained Release Take 450 mg by mouth 2 times daily. LEVOthyroxine (SYNTHROID) 112 mcg Oral Tablet Take 112 mcg by mouth daily. ketoconazole (NIZORAL) 2 % Top Cream Apply topically 2 times daily as needed for Itching. cetirizine (ZYRTEC) 10 mg Oral Tablet Take 10 mg by mouth daily. bumetanide (BUMEX) 2 mg Oral Tablet Take 2 mg by mouth daily. budesonide-formot Margo (SYMBICORT) 160-4.5 mcg/actuation Inhl HFA Aerosol Inhaler Inhale 2 Puffs into the lungs 2 times daily. azelastine (ASTELIN) 137 mcg (0.1 %) Nasl Helm, Non-Aerosol 274 mcg in each nostril 2 times daily. Use in each nostril as directed aspirin 81 mg Oral Tablet, Chewable Take 81 mg by mouth daily. albuterol (PROVENTIL) 2.5 mg /3 mL (0.083 %) Inhl Solution for Nebulization Take 2.5 mg by nebulization as needed for Wheezing. QUEtiapine (SEROQUEL) 100 mg Oral Tablet Take 100 mg by mouth daily at 8pm. baclofen (LIORESAL) 10 mg Oral Tablet Take 10 mg by mouth 2 times daily. HYDROcodone-aceta minophen (NORCO) 5-325 mg Oral Tablet Take 1 Tablet by mouth 3 times daily (before meals). added in this encounter Active and Recently Administered Medications Times are shown in EDT. Scheduled Medication Order 04/30/2025 05/01/2025 05/02/2025 aspirin chewable tablet 81 mg 81 mg, Oral, DAILY, First dose on Sun04/30/25 at 1830, Until Discontinued 1749 (Given - Provider: Jaz Arciniega, ARLEY) 0802 (Given - Provider: Jaz Arciniega RN) 0920 (Given - Provider: Isela Lomax, ARLEY) azelastine (ASTELIN) 137 mcg (0.1 %) nasal spray 2 Helm 2 Helm, Each Nare, 2 TIMES DAILY, First dose on Sun04/29/25 at 2300, Until Discontinued 08 (Given - Provider: Jaz Arciniega RN)2033 (Given - Provider: Susan Wang RN) 0900 (Given - Provider: Jaz Arciniega RN)2108 (Given - Provider: Ward Marte RN) 144 (Given - Provider: Isela Lomax, ARLEY) budesonide-formoteroL (SYMBICORT) 160-4.5 mcg/actuation inhaler 2 Puff(Linked Group 1) 2 Puff, Inhalation, 2 TIMES DAILY (RESP CARE), First dose on Sun04/30/25 at 0800, Until Discontinued, Waste Sort Code = [employer] 0852 (Given - Provider: Gerardo Solano, JAEL)2008 (Given - Provider: Elvia Perez, CHOKER HOOKER) 0848 (Given - Provider: Gerardo Solano, CHOKER HOOKER)2018 (Given - Provider: Marva Rowland, CHOKER HOOKER) 0840 (Given - Provider: Christofer Holly, JAEL) bumetanide (BUMEX) tablet 2 mg (CANCELED) 2 mg, Oral, DAILY, First dose on Sun04/30/25 at 0915, Until Discontinued, Hold if systolic pressures less than 110. 1024 (Given - Provider: Jaz Arciniega RN) bumetanide (BUMEX) tablet 2 mg 2 mg, Oral, DAILY, First dose on Sun05/01/25 at 1745, Until Discontinued 1752 (Given - Provider: Jaz Arciniega RN) 0920 (Given - Provider: Isela Lomax, ARLEY) dexAMETHasone (DECADRON) injection 6 mg (COMPLETED)(Linked Group 2) 6 mg, Intravenous, EVERY 6 HOURS SCHEDULED (4 times per day), 3 doses, First dose on Sun04/30/25 at 1200, Last dose on Sun05/01/25 at 0000 1100 (Given - Provider: Jaz Arciniega RN)1749 (Given - Provider: Jaz Arciniega RN)2330 (Given - Provider: Susan Wang, ARLEY) dexAMETHasone (DECADRON) tablet 6 mg(Linked Group 2) 6 mg, Oral, DAILY WITH MEAL, 7 doses, First dose on Sun05/01/25 at 0800, Last dose on Sun05/07/25 at 0800 0802 (Given - Provider: Jza Arciniega RN) 0756 (Given - Provider: Isela Lomax, ARLEY) enoxaparin (LOVENOX) injection 40 mg 40 mg, Subcutaneous, 2 TIMES DAILY, First dose on Sun04/29/25 at 2100, Until Discontinued 826 (Given - Provider: Jaz Arciniega RN)2034 (Given - Provider: Susan Wang, ARLEY) 08 (Given - Provider: Jaz Arciniega RN)2057 (Given - Provider: Ward Marte RN) 09 (Given - Provider: Isela Lomax, ARLEY) LEVOthyroxine (SYNTHROID) tablet 112 mcg 112 mcg, Oral, DAILY, First dose on Sun04/30/25 at 0900, Until Discontinued, Take on empty stomach, at least 30 minutes to 1 hour before breakfast. Take at least 4 hours prior before or after calcium- or iron-containing products or bile acid sequestrants. If given via NG or other tubes administer dose as long as possible after feeding and at least 1 hour before resuming feeding. 0827 (Given - Provider: Jaz Arciniega RN) 0802 (Given - Provider: Jaz Arciniega RN) 0920 (Given - Provider: Isela Lomax, ARLEY) lithium (LITHOBID) CR tablet 450 mg 450 mg, Oral, 2 TIMES DAILY, First dose on Sun04/29/25 at 2300, Until Discontinued 1024 (Given - Provider: Jaz Arciniega RN)2034 (Given - Provider: Susan Wang, ARLEY) 08 (Given - Provider: Jaz Arciniega RN)2058 (Given - Provider: Ward Marte, ARLEY) 0925 (Given - Provider: Isela Lomax, ARLEY) methylphenidate HCl CR tablet 36 mg 36 mg, Oral, DAILY, First dose (after last modification) on Sun04/30/25 at 1000, Until Discontinued, Patient to use home supply of methylphenidate CR. Notify pharmacy when available to verify identity. Do NOT tube home medications, home medications MUST be walked down to pharmacy. 1000 (Not Given - Provider: Jaz Arciniega RN - Reason: Patient Supplied Medication Not Available) 0900 (Not Given - Provider: Jaz Arciniega RN - Reason: Patient Supplied Medication Not Available) 0900 (Not Given - Provider: Isela Lomax, ARLEY - Reason: Patient Supplied Medication Not Available) miconazole (MICATIN) 2 % powder Topical, 2 TIMES DAILY, 84 doses, First dose on Sun04/30/25 at 1030, Last dose on Sun06/10/25 at 2100, Application site: abdomen & arron area 1030 (Given - Provider: Jaz Arciniega RN)2034 (Given - Provider: Susan Wang, ARLEY) 08 (Given - Provider: Jaz Arciniega RN)2100 (Given - Provider: Ward Marte, ARLEY) 09 (Given - Provider: Isela Lomax, ARLEY) montelukast (SINGULAIR) tablet 10 mg 10 mg, Oral, EVERY EVENING, First dose on Sun04/29/25 at 2300, Until Discontinued 1748 (Given - Provider: Jaz Arciniega RN) 175 (Given - Provider: Jaz Arciniega, ARLEY) naloxegoL Tab 25 mg 25 mg, Oral, DAILY, First dose on Elsi 04/30/25 at 1015, Until Discontinued, Patient to use home supply of Movantik. Notify pharmacy when available to verify identity. Do NOT tube home medications, home medications MUST be walked down to pharmacy. 1015 (Not Given - Provider: Jaz Arciniega RN - Reason: Patient Supplied Medication Not Available) 0900 (Not Given - Provider: Jaz Arciniega RN - Reason: Patient Supplied Medication Not Available) 0900 (Not Given - Provider: Isela Lomax RN - Reason: Patient Supplied Medication Not Available) nicotine (NICODERM CQ) 21 mg/24 hr 1 Patch(Linked Group 3) 1 Patch, Transdermal, DAILY, First dose on Sun04/29/25 at 1500, Until Discontinued, Apply to skin every morning, rotating sites. Remove old patch. Patches may be placed anywhere on the upper body, including arms and back (exceptions: do not place on abdomen if ; do not place over any other medication patch, port-a-cath, or pacemaker). Please place used patch, wrapper, and/or empty package in [employer] Container, Administer over 24 Hours 0859 (Patch Removed - Provider: Jaz Arciniega RN)0900 (Hold - Provider: Jaz Arciniega RN - Reason: Contraindicated - Comment: mri) 08 (Patch Applied - Provider: Jaz Arciniega RN) 08 (Patch Removed - Provider: Isela Lomax RN - Comment: was not present)916 (Patch Applied - Provider: Isela Lomax RN)153 (Due: Patch Removed - Provider: Automatic Discharge Provider - Comment: Time automatically adjusted from order being discontinued) nicotine (NICODERM CQ) patch CHECK(Linked Group 3) Transdermal, NIGHTLY, First dose on Sun04/29/25 at 2100, Until Discontinued, Confirm patch is in place. Remove patch at bedtime for complaint of insomnia or vivid dreams 2099 (Patch Applied - Provider: Susan Wang RN - Comment: looked for patch, patch not present, new patch placed) 2099 (Patch Removed - Provider: Inge Long RN - Comment: pt states it fell off) oxybutynin (DITROPAN) tablet 5 mg 5 mg, Oral, 2 TIMES DAILY, First dose on Elsi 04/30/25 at 0900, Until Discontinued 826 (Given - Provider: Jaz Arciniega RN)2034 (Given - Provider: Susan Wang RN) 0802 (Given - Provider: Jaz Arciniega RN)2058 (Given - Provider: Ward Marte, ARLEY) 0920 (Given - Provider: Isela Lomax, ARLEY) QUEtiapine (SEROquel) tablet 100 mg 100 mg, Oral, DAILY 8PM, First dose on Sun04/29/25 at 2300, Until Discontinued 2034 (Given - Provider: Susan Wang, ARLEY) 2058 (Given - Provider: Ward Marte, ARLEY) rosuvastatin (CRESTOR) tablet 20 mg 20 mg, Oral, DAILY, First dose on Sun04/30/25 at 0900, Until Discontinued 1024 (Given - Provider: Jaz Arciniega RN) 0802 (Given - Provider: Jaz Arciniega RN) 0919 (Given - Provider: Isela Lomax, ARLEY) spironolactone (ALDACTONE) tablet 100 mg 100 mg, Oral, DAILY, First dose on Sun04/30/25 at 0900, Until Discontinued, Hold if systolic pressures less than 110 1024 (Given - Provider: Jaz Arciniega RN) 0802 (Given - Provider: Jaz Arciniega RN) 0920 (Given - Provider: Isela Lomax, ARLEY) vortioxetine (TRINTELLIX) tablet 10 mg 10 mg, Oral, DAILY, First dose (after last modification) on Sun04/30/25 at 1115, Until Discontinued 1023 (Given - Provider: Jaz Arciniega RN) 0802 (Given - Provider: Jaz Arciniega RN) 0920 (Given - Provider: Isela Lomax, ARLEY) PRN Medication Order 04/30/2025 05/01/2025 05/02/2025 albuterol (PROVENTIL HFA;VENTOLIN HFA) inhaler 2 Puff(Linked Group 1) 2 Puff, Inhalation, PRN, Starting on Sun04/29/25 at 2158, Until 05/02/25 at 1938, Wheezing, Shortness of Breath, Waste Sort Code = [employer] ALPRAZolam (XanAX) tablet 2 mg (COMPLETED) 2 mg, Oral, ONCE PRN, 1 dose, Starting on Sun04/30/25 at 1439, Until Elsi 04/30/25 at 1618, Anxiety 1618 (Given - Provider: Jaz Arciniega, ARLEY) baclofen (LIORESAL) tablet 5 mg 5 mg, Oral, 3 TIMES DAILY PRN, Starting on Sun04/29/25 at 1529, Until 05/02/25 at 1938, Muscle spasms 1506 (Given - Provider: Jaz Arciniega, ARLEY)2330 (Given - Provider: Susan Wang, ARLEY) 0802 (Given - Provider: Jaz Arciniega RN)1548 (Given - Provider: Jaz Arciniega RN) HYDROmorphone (DILAUDID) injection 0.5 mg (CANCELED) 0.5 mg, Intravenous, EVERY 4 HOURS PRN, Starting on Sun04/29/25 at 1528, Until Sun05/01/25 at 1044, Pain Unrelieved by Oral Opioid Therapy 0831 (Given - Provider: Jaz Arciniega RN)2048 (Given - Provider: Susan Wang RN) ondansetron (ZOFRAN) injection 4 mg(Linked Group 4) 4 mg, Intravenous, EVERY 6 HOURS PRN, Starting on Sun04/29/25 at 2001, Until 05/02/25 at 1938, Nausea ondansetron (ZOFRAN) tablet 4 mg(Linked Group 4) 4 mg, Oral, EVERY 6 HOURS PRN, Starting on Sun04/29/25 at 2001, Until 05/02/25 at 1938, Nausea oxyCODONE (OXY-IR) immediate release tablet 7.5 mg 7.5 mg, Oral, EVERY 6 HOURS PRN, Starting on Sun05/01/25 at 1044, Until 05/02/25 at 1938, Pain 1207 (Given - Provider: Jaz Arciniega RN)1752 (Given - Provider: Jaz Arciniega RN) 0800 (Given - Provider: Isela Lomax, ARLEY)1410 (Given - Provider: Isela Lomax, ARLEY) oxyCODONE (ROXICODONE) immediate release tablet 5 mg (CANCELED) 5 mg, Oral, EVERY 6 HOURS PRN, Starting on Sun04/29/25 at 1528, Until Elsi 25 at 0952, Pain Unrelieved by Oral Non-Opioid Therapy, Begin with lowest dose unless otherwise directed. Reassess pain in one hour. If pain unrelieved, remainder of dose may be given to patient. 0616 (Given - Provider: Alonso Puckett, ARLEY) oxyCODONE (ROXICODONE) immediate release tablet 5 mg (CANCELED) 5 mg, Oral, EVERY 6 HOURS PRN, Starting on Sun04/30/25 at 0952, Until Sun05/01/25 at 1044, Pain, Begin with lowest dose unless otherwise directed. Reassess pain in one hour. If pain unrelieved, remainder of dose may be given to patient. 1251 (Given - Provider: Jaz Arciniega, ARLEY)1839 (Given - Provider: Jaz Arciniega RN) 0613 (Given - Provider: Susan Wang RN) prochlorperazine (COMPAZINE) tablet 10 mg 10 mg, Oral, EVERY 6 HOURS PRN, Starting on Sun04/30/25 at 0844, Until 05/02/25 at 1938, Breakthrough Nausea/Vomiting Linked Groups Order Group 1: budesonide-formoteroL (SYMBICORT) 160-4.5 mcg/actuation inhaler 2 PuffJump to med 2 Puff, Inhalation, 2 TIMES DAILY (RESP CARE), First dose on Sun04/30/25 at 0800, Until Discontinued, Waste Sort Code = [employer] And albuterol (PROVENTIL HFA;VENTOLIN HFA) inhaler 2 PuffJump to med 2 Puff, Inhalation, PRN, Starting on Sun04/29/25 at 2158, Until 05/02/25 at 1938, Wheezing, Shortness of Breath, Waste Sort Code = [employer] Group 2: dexAMETHasone (DECADRON) injection 6 mg (COMPLETED)Jump to med 6 mg, Intravenous, EVERY 6 HOURS SCHEDULED (4 times per day), 3 doses, First dose on Sun04/30/25 at 1200, Last dose on Sun05/01/25 at 0000 Followed by dexAMETHasone (DECADRON) tablet 6 mgJump to med 6 mg, Oral, DAILY WITH MEAL, 7 doses, First dose on Sun05/01/25 at 0800, Last dose on Elsi 05/07/25 at 0800 Group 3: nicotine (NICODERM CQ) 21 mg/24 hr 1 PatchJump to med 1 Patch, Transdermal, DAILY, First dose on Sun04/29/25 at 1500, Until Discontinued, Apply to skin every morning, rotating sites. Remove old patch. Patches may be placed anywhere on the upper body, including arms and back (exceptions: do not place on abdomen if ; do not place over any other medication patch, port-a-cath, or pacemaker). Please place used patch, wrapper, and/or empty package in [employer] Container, Administer over 24 Hours And nicotine (NICODERM CQ) patch CHECKJump to med Transdermal, NIGHTLY, First dose on Sun04/29/25 at 2100, Until Discontinued, Confirm patch is in place. Remove patch at bedtime for complaint of insomnia or vivid dreams Group 4: ondansetron (ZOFRAN) tablet 4 mgJump to med 4 mg, Oral, EVERY 6 HOURS PRN, Starting on Sun04/29/25 at 2000, Until 05/02/25 at 1938, Nausea Or ondansetron (ZOFRAN) injection 4 mgJump to med 4 mg, Intravenous, EVERY 6 HOURS PRN, Starting on Sun04/29/25 at 2000, Until 05/02/25 at 1938, Nausea documented in this encounter Orders Medications Ordered That [place] ht Not Have Been Administered Count Last Ordered Date First Ordered Date dexAMETHasone (DECADRON) 6 m g in sodium chloride 0.9 % IVPB 1 04/30/2025 dexAMETHasone (DECADRON) tablet 6 mg 1 04/15 methylphenidate HCl CR tablet 36 mg 2 04/30 naloxegoL Tab 25 mg 1 04/30/2025 prochlorperazine (COMPAZINE) tablet 10 mg 1 04/30/2025 vortioxetine (TRINTELLIX) tablet 10 mg 1 albuterol (PROVENTIL HFA;RADHA TOLIN HFA) inhaler 2 Puff 1 04/29/2025 budesonide-formoteroL (SYMBI COSME) 160-4.5 mcg/actuation inhaler 2 Puff 1 04/29/2025 diazePAM (VALIUM) injection 2.5 mg 1 2024 midazolam (VERSED) injection 2 mg 1 ondansetron (ZOFRAN) injection 4 mg 1 04/29 sodium chloride 0.9% IV line flush 50 mL 1 04/29/2025 sodium chloride 0.9% syringe 5-10 mL 1 04/15 Nursing Count Last Ordered Date First Orde red Date ACTIVITY FOR DISCHARGE 1 05/02/2025 CARDIAC MONITORING 1 04/29/2025 NURSING COMMUNICATION 1 04/29/2025 ORTHOSTATIC BLOOD PRESSURE AND PULSE 1 04/15 PULSE OXIMETRY - NURSING 1 04/29/2025 Consult Count Last Ordered Date First Orde red Date IP CONSULT TO NEUROLOGY 1 05/01/2025 IP CONSULT TO WOUND CARE 2 04/30/2025 IP CONSULT TO ORTHOPEDIC SURGERY 1 04/29/20 Nourishments Count Last Ordered Date First Orde red Date DIET FOR DISCHARGE 1 05/02/2025 OT Count Last Ordered Date First Orde red Date OT PLAN OF CARE CERTIFICATION 1 05/01/2025 IP CONSULT TO OCCUPATIONAL THERAPY 1 2024 PT Count Last Ordered Date First Orde red Date PT PLAN OF CARE CERTIFICATION 1 05/01/2025 IP CONSULT TO PHYSICAL THERAPY 1 04/30/2025 IV Count Last Ordered Date First Orde red Date SALINE LOCK IV 1 04/29/2025 Admission Count Last Ordered Date First Orde red Date ADMIT 1 04/29/2025 Discharge Count Last Ordered Date First Orde red Date DISCHARGE PATIENT 1 05/02/2025 documented in this encounter Additional Health Concerns Assessment Noted Time PHQ-9 Depression Total Score: 10 025 3:35 PM EDT PHQ-2 Depression Total Score: 4 04/29/20 25 3:35 PM EDT documented as of this encounter Care Teams Dopeman Relationship Specialty Start Date End Date Ryan Love MD PCP - General Family Medicine 08/14/21 documented as of this encounter
--- OUTSIDE RECORDS SUMMARY | 2025-05-16 17:47 | XMS_ITS | Encounter Summary ---
Author Organization [place] [address] Care Team Providers Care [employer] Name Role Phone Ryan Love MD Primary Care Provider [phone] Reason for Visit * Reason Comments Foot Pain right foot pain for past 10 days. no known injuyr Encounter Details Date Type Department Care Team ([facility] st Contact Info) Description 05/16/2025 6:47 PM EDT - 05/16/2025 8:01 PM EDT Emergency [facility] [address] [place] [address] Jefry Krishna MD [address] [place] [address] Pain of right heel (Primary Dx) Discharge Disposition: Home or Self Care Social [...] medical care, and heating? Very hard 04/29/2025 [facility] [place] [facility] - Occupational Stress [...] money to get more. Often true 04/29/2025 [facility] Utilities Answer Date Recorded In the past 12 months has th e [employer], gas, oil, or water [employer] threatened to shut off services in your home? No 04/29/2025 [facility] IP Transportation Answer D ate Recorded In [...] Sign Reading Time Taken Comments Blood Pressure 155/73 05/16/2025 6:45 PM EDT Pulse 73 05/16/2025 6:45 PM EDT Temperature 36.8 C (98.2 F) 05/16/2025 6:45 PM EDT Respiratory Rate 17 05/16/2025 6:45 PM EDT Oxygen Saturation 100% 05/16/2025 6:45 PM EDT Inhaled Oxygen Concentration - - Weight - - Height - - Body Mass Index - - documented in this encounter Functional Status * [...] 08/17/2021 12:27 PM Selwyn Welsh RN documented as of this encounter Mental Status * Because of a physical, mental or emotional condition, does this person have serious difficulty concentrating, remembering or making decisions? Answer Entry Date Author No 08/17/2021 12:27 PM Selwyn Welsh RN documented in this encounter Discharge Instructions * Discharge Instructions* Jefry Krishna MD - 05/16/2025 7:49 PM EDT Use walker to assist with ambulation. Change or worsening symptoms, return. documented in this encounter Medications at Time of Discharge albuterol (PROVENTIL) 2.5 mg /3 mL (0.083 %) Inhl Solution for Nebulization Take 2.5 mg by nebulization as needed for Wheezing. aspirin 81 mg Oral Tablet, Chewable Take 81 mg by mouth daily. azelastine (ASTELIN) 137 mcg (0.1 %) Nasl [place], Non-Aerosol 274 mcg in each nostril 2 [...] tablet Take 10 mg by mouth daily. naproxen (NAPROSYN) 500 mg Oral Tablet Take 1 Tablet by mouth 2 times daily as needed for Pain for up to 30 days. 30 Tablet 05/16/2025 documented as of this encounter Ordered Prescriptions Prescription Sig Dispense Quantity Refills Last Filled Start Date End Date naproxen (NAPROSYN) 500 mg Oral Tablet Take 1 Tablet by mouth 2 times daily as needed for Pain for up to 30 days. 30 Tablet 05/16/2025 06/18/2025 documented in this encounter Discharge Disposition Disposition Code Departure Means Destination Comment s Home or Self Residential documented in this encounter ED Notes * Jefry Krishna MD - 05/16/2025 6:40 PM EDT CHIEF COMPLAINT Chief Complaint Patient presents with Foot Pain right foot pain for past 10 days. no known injuyr HPI Juliana Olguin is a 39 y.o. female who presents heel pain. Patient states she had a recent admission for her back, states she does have chronic back pain she is only been taken ibuprofen for her symptoms. States she has been using a walker since discharge but as of Sunday of last week stopped using the walker and since then she has been having right heel pain that hurts when she walks and even when she walks on the toes of her foot that hurts her heel. Denies any fall injury or fever. REVIEW OF SYSTEMS See HPI for further details. Review of systems otherwise negative. PAST MEDICAL HISTORY Past Medical History[1] FAMILY HISTORY Family History[2] SOCIAL HISTORY Social History[3] SURGICAL HISTORY Surgical History[4] CURRENT MEDICATIONS Current Medications[5] ALLERGIES Allergies[6] PHYSICAL EXAM VITAL SIGNS: BP 155/73 Pulse 73 Temp 98.2 ??F (36.8 ??C) Resp 17 LMP 09/13/2011 SpO2 100% Constitutional: Well developed, Well nourished, No acute distress, Non-toxic appearance. HENT: Normocephalic, Atraumatic, Bilateral external ears normal, Oropharynx moist, No oral exudates, Nose normal. Eyes: PERRLA, EOMI, Conjunctiva normal, No discharge. Neck: Normal range of motion, No tenderness, Supple, No stridor. Lymphatic: No lymphadenopathy noted. Cardiovascular: Regular rate and rhythm Thorax & Lungs: Normal respiratory effort. Abdomen: Nondistended abdomen Skin: Warm, Dry, No erythema, No rash. Back: No tenderness, No CVA tenderness. Extremities: Intact distal pulses, No edema, No tenderness, No cyanosis, No clubbing. Tenderness over the heel pad without erythema or warmth no tenderness over the Achilles forefoot or plantar fascial region. Distal pulses sensation and motor exam is intact. Neurologic: Alert & oriented x 3, Normal motor function, Normal sensory function, No focal deficits noted. EKG LABS/RADIOLOGY/PROCEDURES Labs Reviewed - No data to display XR FOOT RIGHT AP LATERAL AND OBLIQUE Final Result No acute bony abnormality of the foot. - Note: Radiology results need to be interpreted within a comprehensive clinical context. If you have questions about the radiology report, please contact the office of the ordering clinician. COURSE & MEDICAL DECISION MAKING Pertinent Labs & Imaging studies reviewed. (See chart for details) Please note I was wearing appropriate PPE for this encounter. 750 pm well-appearing nontoxic female no distress. Suspect this is musculoskeletal, she has a good vascular exam plan is rest with her walker and follow-up with orthopedics. NSAIDs prescribed FINAL IMPRESSION 1. Pain of right heel This chart was completed using voice recognition technology and may contain unintended errors [1] Past Medical History: Diagnosis Date Arthritis [...] Social Drivers of Health Financial Resource Strain: High Risk (04/29/2025) Overall Financial Resource Strain (CARDIA) Difficulty of Paying Living Expenses: Very hard Food Insecurity: Food Insecurity Present (04/29/2025) Hunger Vital Sign Worried About Running Out of Food in the Last Year: Often true Ran Out of Food in the Last Year: Often true Transportation Needs: Unmet Transportation Needs (04/29/2025) [facility] IP Transportation In the past 12 months, has lack of reliable transportation kept you from medical appointments, meetings, work or from getting things needed for daily living?: Yes Physical Activity: Inactive (04/29/2025) Exercise Vital Sign Days of Exercise per Week: 0 days Minutes of Exercise per Session: 0 min Stress: Stress Concern Present (04/29/2025) [facility] [place] [facility] - Occupational Stress Questionnaire Feeling of Stress: Very much Housing Stability: Low Risk (06/06/2022) Received from [employer] PRAPARE Survey 1.0 What is your housing situation today?: I have housing [4] Past Surgical History: Procedure Laterality Date YOANDY-EN-Y GASTRIC BYPASS 2018 [5] No current facility-administered medications for this encounter. Current Outpatient Medications: albuterol (PROVENTIL) 2.5 mg /3 mL (0.083 %) Inhl Solution for Nebulization, Take 2.5 mg by nebulization as needed for Wheezing., Disp: , Rfl: aspirin 81 mg Oral Tablet, Chewable, Take 81 mg by mouth daily., Disp: , Rfl: azelastine (ASTELIN) 137 mcg (0.1 %) Nasl [place], Non-Aerosol, 274 mcg in each nostril 2 times daily. Use in each nostril as directed, Disp: , Rfl: baclofen (LIORESAL) 10 mg Oral Tablet, Take 10 mg by mouth 2 times daily., Disp: , Rfl: budesonide-formoteroL (SYMBICORT) 160-4.5 mcg/actuation Inhl HFA Aerosol Inhaler, Inhale 2 Puffs into the lungs 2 times daily., Disp: , Rfl: bumetanide (BUMEX) 2 mg Oral Tablet, Take 2 mg by mouth daily., Disp: , Rfl: cetirizine (ZYRTEC) 10 mg Oral Tablet, Take 10 mg by mouth daily., Disp: , Rfl: ketoconazole (NIZORAL) 2 % Top Cream, Apply topically 2 times daily as needed for Itching., Disp: ,Rfl: LEVOthyroxine (SYNTHROID) 112 mcg Oral Tablet, Take 112 mcg by mouth daily., Disp: , Rfl: lithium (LITHOBID) 450 mg Oral Tablet Sustained Release, Take 450 mg by mouth 2 times daily., Disp:, Rfl: methylphenidate ER 36 mg tablet,extended release 24 hr, Take 36 mg by mouth daily., Disp: , Rfl: montelukast (SINGULAIR) 10 mg Oral Tablet, Take by mouth every evening., Disp: , Rfl: naloxegoL (MOVANTIK) 25 mg Oral Tablet, Take 25 mg by mouth daily., Disp: , Rfl: naproxen (NAPROSYN) 500 mg Oral Tablet, Take 1 Tablet by mouth 2 times daily as needed for Pain forup to 30 days., Disp: 30 Tablet, Rfl: 0 oxybutynin (DITROPAN) 5 mg Oral Tablet, Take 5 mg by mouth 2 times daily., Disp: , Rfl: prochlorperazine (COMPAZINE) 10 mg Oral Tablet, Take 10 mg by mouth every 6 hours as needed for Nausea or Vomiting., Disp: , Rfl: QUEtiapine (SEROQUEL) 100 mg Oral Tablet, Take 100 mg by mouth daily at 8pm., Disp: , Rfl: rosuvastatin (CRESTOR) 20 mg Oral Tablet, Take 20 mg by mouth daily., Disp: , Rfl: spironolactone (ALDACTONE) 100 mg Oral Tablet, Take 100 mg by mouth daily., Disp: , Rfl: vortioxetine (TRINTELLIX) 10 mg Oral tablet, Take 10 mg by mouth daily., Disp: , Rfl: [6] Allergies Allergen Reactions Avelox [Moxifloxacin] Jefry Krishna MD 05/16/252031 documented in this encounter Plan of Treatment Upcoming Encounters Date Type Department Care Team (Late st Contact Info) Description 07/01/2025 9:00 AM EST Appointment [facility] [address] [place] [address] Ken Portillo MD [address] [place] [address] 08/10/2025 9:15 AM EST Office Visit [facility] [address] [place] [address] Magnolia Godoy PA [address] [place] [address] documented as of this encounter Procedures Procedure Name Priority Date/Time Associated Diagnosis Comments XR FOOT RIGHT AP LATERAL AND OBLIQUE ROBERT 05/16/2025 7:25 PM EDT documented in this encounter Results * XR FOOT RIGHT AP LATERAL AND OBLIQUE (05/16/2025 7:25 PM EDT) Anatomical Region Laterality Modality Foot Radiographic Savanah ging 05/16/2025 7:25 PM EDT Impressions 05/16/2025 7:27 PM EDT No acute bony abnormality of the foot. - Note: Radiology results need to be interpreted within a comprehensive clinical context. If you have questions about the radiology report, please contact the office of the ordering clinician. Narrative 05/16/2025 7:27 PM EDT XR FOOT RIGHT AP LATERAL AND OBLIQUE, 05/16/2025 7:25 PM CLINICAL HISTORY: -pain COMPARISON: None. PROCEDURE COMMENTS: XR FOOT RIGHT AP LATERAL AND OBLIQUE FINDINGS: No acute fracture or traumatic malalignment. Joint spaces overall well-maintained for age. No periostitis. Procedure Note Miah Sheppard MD - 05/16/2025 XR FOOT RIGHT AP LATERAL AND OBLIQUE, 05/16/2025 7:25 PM CLINICAL HISTORY: -pain COMPARISON: None. PROCEDURE COMMENTS: XR FOOT RIGHT AP LATERAL AND OBLIQUE FINDINGS: No acute fracture or traumatic malalignment. Joint spaces overall well-maintained for age. No periostitis. IMPRESSION: No acute bony abnormality of the foot. - Note: Radiology results need to be interpreted within a comprehensiveclinical context. If you have questions about the radiology report, please contactthe office of the ordering clinician. us Jefry Krishna MD IM DIAGNOSTIC IMAGING ORDER LORI Final Result documented in this encounter Visit Diagnoses Diagnosis Pain of right heel- Primary Pain in limb documented in this encounter Administered Medications Inactive Administered Medications - up to 1 most recent administrations Medication Order MAR Action Action Date Dose Rate Site HYDROcodone-acetaminophen (NORCO) 5-325 mg per tablet 1 Tablet 1 Tablet, Oral, ONCE, 1 dose, On 05/16/25 at 1900, Maximum adult dose of acetaminophen is 4000 mg from all sources in 24 hours. Given 05/16/2025 7:02 PM EDT 1 Tablet documented in this encounter Active and Recently Administered Medications Times are shown in EDT. Scheduled Medication Order 05/14/2025 05/15/2025 05/16/2025 HYDROcodone-acetaminophen (NORCO) 5-325 mg per tablet 1 Tablet (COMPLETED) 1 Tablet, Oral, ONCE, 1 dose, On 05/16/25 at 1900, Maximum adult dose of acetaminophen is 4000 mg from all sources in 24 hours. 1902 (Given - Provid er: Nano Winters RN) documented in this encounter Orders Medications Ordered That [place] ht Not Have Been Administered Count Last Ordered Date First Ordered Date HYDROcodone-acetaminophen (N ORCO) 5-325 mg per tablet 1 Tablet 1 05/16/2025 documented in this encounter Additional Health Concerns Assessment Noted Time PHQ-9 Depression Total Score: 10 025 3:35 PM EDT PHQ-2 Depression Total Score: 4 04/29/20 25 3:35 PM EDT documented as of this encounter Care Teams [employer] Relationship Specialty Start Date End Date Ryan Love MD PCP - General Family Medicine 08/14/21 documented as of this encounter
--- OUTSIDE RECORDS SUMMARY | 2025-05-31 07:24 | XMS_ITS | Encounter Summary ---
Author Organization [facility] [place] [address] Care Team Providers Care Material Handling Equipment Stevedore Name Role Phone Ryan Love MD Primary Care Provider [phone] Reason for Visit * Reason Comments Abdominal Pain Lower abd pain since 0030 this morning. No urinary symptoms. Denies V/D +N. Took compazine around 0100 Encounter Details Date Type Department Care Team (Late st Contact Info) Description 05/31/2025 7:24 AM EST - 05/31/2025 9:56 AM EST Emergency [facility] Emergency [address] [place] [address] Rubina Gunderson MD [address] [place] [address] Lower abdominal pain (Primary Dx); Hypokalemia Discharge Disposition: Home or Self Care Social [...] No 08/15/2021 Overall Financial Resource Strain (CARDIA) [place]xt[place] r Date Recorded How hard is it for you to pa y for the very basics like food, housing, medical care, and heating? Very hard 04/29/2025 [facility] [place] of Occupat ional Health - Occupational Stress [...] money to get more. Often true 04/29/2025 [facility] Utilities Answer Date Recorded In the past 12 months has th e [employer], gas, oil, or water [employer] threatened to shut off services in your home? No 04/29/2025 [facility] HRSN CMS IP Transportation Answer D ate Recorded In [...] Sign Reading Time Taken Comments Blood Pressure 106/70 05/31/2025 7:21 AM EST Pulse 97 05/31/2025 7:06 AM EST Temperature 36.9 C (98.4 F) 05/31/2025 7:21 AM EST Respiratory Rate 18 05/31/2025 7:06 AM EST Oxygen Saturation 93% 05/31/2025 7:06 AM EST Inhaled Oxygen Concentration - - Weight 139.3 kg (307 lb) 05/31/2025 7:21 AM EST Height 180.3 cm (5' 11 ) 05/31/2025 7:21 AM EST Body Mass Index 42.82 05/31/2025 7:21 AM EST documented in this encounter Functional Status * Is the person deaf or does he/she have serious difficulty hearing? Answer Date of Assessment Author No 08/17/2021 12:27 PM EST Selwyn Harrison RN * Is the person blind or does he/she have serious difficulty seeing even when wearing glasses? Answer Date of Assessment Author No 08/17/2021 12:27 PM EST Selwyn Harrison RN * Does this person have serious difficulty walking or climbing stairs? Answer Date of Assessment Author No 08/17/2021 12:27 PM EST Selwyn Harrison RN * Does this person have difficulty dressing or bathing? Answer Date of Assessment Author No 08/17/2021 12:27 PM EST Selwyn Harrison RN * Because of a physical, mental or emotional condition, does this person have difficulty doing errands alone such as visiting a doctor's office or shopping? Answer Date of Assessment Author No 08/17/2021 12:27 PM EST Selwyn Harrison RN documented as of this encounter Mental Status * Because of a physical, mental or emotional condition, does this person have serious difficulty concentrating, remembering or making decisions? Answer Entry Date Author No 08/17/2021 12:27 PM EST Selwyn Harrison RN documented in this encounter Discharge Instructions * Discharge Instructions* Rubina Gunderson MD - 05/31/2025 9:38 AM EST Clear liquid diet for 12 hours. Advance as tolerated. Avoid fatty food and alcohol. Return if worse, increasing pain, persistent vomiting or fever. documented in this encounter Medications at Time of Discharge albuterol (PROVENTIL) 2.5 mg /3 mL (0.083 %) Inhl Solution for Nebulization Take 2.5 mg by nebulization as needed for Wheezing. aspirin 81 mg Oral Tablet, Chewable Take 81 mg by mouth daily. azelastine (ASTELIN) 137 mcg (0.1 %) Nasl [place], Non-Aerosol 274 mcg in each nostril 2 [...] Tablet Take 10 mg by mouth daily. dicyclomine (BENTYL) 20 mg Oral Tablet Take 1 Tablet by mouth every 6 hours as needed for Other (abdominal cramping) for up to 30 days. 20 Tablet 05/31/2025 5 ketoconazole (NIZORAL) 2 % Top Cream Apply [...] hours as needed for Nausea or Vomiting. promethazine (PHENERGAN) 25 mg Oral Tablet Take 1 Tablet by mouth every 6 hours as needed for Nausea or Vomiting for up to 30 days. 12 Tablet 05/31/2025 5 QUEtiapine (SEROQUEL) 100 mg Oral Tablet Take [...] Refills Last Filled Start Date End Date promethazine (PHENERGAN) 25 mg Oral Tablet Take 1 Tablet by mouth every 6 hours as needed for Nausea or Vomiting for up to 30 days. 12 Tablet 05/31/2025 dicyclomine (BENTYL) 20 mg Oral Tablet Take 1 Tablet by mouth every 6 hours as needed for Other (abdominal cramping) for up to 30 days. 20 Tablet 05/31/2025 documented in this encounter Discharge Disposition Disposition Code Departure Means Destination Comment s Home or Self Residential documented in this encounter ED Notes * Rubina Gunderson MD - 05/31/2025 7:05 AM EST Chief Complaint Patient presents with Abdominal Pain Lower abd pain since 0030 this morning. No urinary symptoms. Denies V/D +N. Took compazine around 0100 Patient is a 39-year-old female presents emergency department concern for lower abdominal pain. Pain started this morning. She reports that around midnight, she urinated, symptom started about half hour later. She states the pain is intermittent in nature, at different points in her lower abdomen however always below her umbilicus. She has had nausea. Denies any fevers or chills. No vaginal bleeding or discharge. She reports chronic back pain however no acute change. She is irregular in terms of her bowel habits however the last time she had a bowel movement it was at her baseline. Urination has been normal. She has had multiple intra-abdominal surgeries including hysterectomy, cholecystectomy, gastric bypass. Patient History Allergies[1] Home Medications: Prior to Admission medications Medication Sig Start Date End Date Last Dose Authorizing Provider albuterol (PROVENTIL) 2.5 mg /3 mL (0.083 %) Inhl Solution for Nebulization Take 2.5 mg by nebulization as needed for Wheezing. Provider, Historical aspirin 81 mg Oral Tablet, Chewable Take 81 mg by mouth daily. Provider, Historical azelastine (ASTELIN) 137 mcg (0.1 %) Nasl [place], Non-Aerosol 274 mcg in each nostril 2 times daily.Use in each nostril as directed Provider, Historical baclofen (LIORESAL) 10 mg Oral Tablet Take 10 mg by mouth 2 times daily. Provider, Historical budesonide-formoteroL (SYMBICORT) 160-4.5 mcg/actuation Inhl HFA Aerosol Inhaler Inhale 2 Puffs into the lungs 2 times daily. Provider, Historical bumetanide (BUMEX) 2 mg Oral Tablet Take 2 mg by mouth daily. Provider, Historical cetirizine (ZYRTEC) 10 mg Oral Tablet Take 10 mg by mouth daily. Provider, Historical ketoconazole (NIZORAL) 2 % Top Cream Apply topically 2 times daily as needed for Itching. Provider,Historical LEVOthyroxine (SYNTHROID) 112 mcg Oral Tablet Take 112 mcg by mouth daily. Provider, Historical lithium (LITHOBID) 450 mg Oral Tablet Sustained Release Take 450 mg by mouth 2 times daily. Provider, Historical methylphenidate ER 36 mg tablet,extended release 24 hr Take 36 mg by mouth daily. Provider, Historical montelukast (SINGULAIR) 10 mg Oral Tablet Take by mouth every evening. Provider, Historical naloxegoL (MOVANTIK) 25 mg Oral Tablet Take 25 mg by mouth daily. Provider, Historical naproxen (NAPROSYN) 500 mg Oral Tablet Take 1 Tablet by mouth 2 times daily as needed for Pain for up to 30 days. 05/16/25 06/15/25 Jefry Krishna MD oxybutynin (DITROPAN) 5 mg Oral Tablet Take 5 mg by mouth 2 times daily. Provider, Historical prochlorperazine (COMPAZINE) 10 mg Oral Tablet Take 10 mg by mouth every 6 hours as needed for Nausea or Vomiting. Provider, Historical QUEtiapine (SEROQUEL) 100 mg Oral Tablet Take 100 mg by mouth daily at 8pm. Provider, Historical rosuvastatin (CRESTOR) 20 mg Oral Tablet Take 20 mg by mouth daily. Provider, Historical spironolactone (ALDACTONE) 100 mg Oral Tablet Take 100 mg by mouth daily. Provider, Historical vortioxetine (TRINTELLIX) 10 mg Oral tablet Take 10 mg by mouth daily. Provider, Historical Past Medical History: Past Medical History[2] Social History: reports that she has been smoking cigarettes. She started smoking about 28 years ago. She has a 14.2 pack-year smoking history. She has never used smokeless tobacco. She reports current alcohol use. She reports that she does not use drugs. E-Cigarettes (such as Vapes or Juul) E-Cigarette Use Never Assessed Family History: Family History[3] Surgical History: Surgical History[4] Review of Systems Review of Systems Constitutional: Negative for chills and fever. Gastrointestinal: Positive for abdominal pain and nausea. Negative for vomiting. Genitourinary: Negative for dysuria, flank pain, hematuria, vaginal bleeding and vaginal discharge. All other systems reviewed and are negative. Physical Exam Blood pressure 106/70, pulse 97, temperature 98.4 ??F (36.9 ??C), temperature source Oral, resp. rate 18, height 5' 11 (1.803 m), weight (!) 307 lb (139.3 kg), last menstrual period 09/13/2011, InQ069%, not currently . Physical Exam Vitals and nursing note reviewed. Constitutional: General: She is not in acute distress. Appearance: She is well-developed. HENT: Head: Normocephalic and atraumatic. Eyes: Conjunctiva/sclera: Conjunctivae normal. Cardiovascular: Rate and Rhythm: Normal rate. Pulmonary: Effort: Pulmonary effort is normal. No respiratory distress. Abdominal: General: There is no distension. Palpations: Abdomen is soft. Tenderness: There is generalized abdominal tenderness (mild lower abd, not peritoneal) and tenderness in the right lower quadrant, suprapubic area and left lower quadrant. Musculoskeletal: General: No deformity. Normal range of motion. Cervical back: Normal range of motion and neck supple. Skin: General: Skin is warm and dry. Neurological: Mental Status: She is alert and oriented to person, place, and time. Psychiatric: Behavior: Behavior normal. Procedures Radiology/EKG/Labs: Results for orders placed or performed during the hospital encounter of 05/31/25 CT ABD PEL ED FAST W CONTRAST Narrative CLINICAL HISTORY: -lower abd pain. COMPARISON: 08/14/2021. TECHNIQUE: CT ABD PEL ED FAST W CONTRAST on 05/31/2025 8:48 AM. Iodinated IV contrast as recorded in EPIC. Dose 1 : CT DLP Total : 1017.31 mGycm DLP Spiral Max : 1012.87 mGycm Maximum CTDI Vol : 19.35 mGy FINDINGS: Abdomen: The lung bases are clear. The visualized portions of the heart are normal. The liver, spleen, pancreas, adrenal glands, kidneys are normal. The gallbladder has been removed. Surgical changes are noted in the stomach. The caliber of the small bowel is normal. There are no enlarged abdominal lymph nodes or free fluid. The caliber of the aorta is normal. Degenerative changes are noted at L5-S1. Pelvis: The caliber of the colon is normal. The appendix is unremarkable. There are no enlarged pelvic lymph nodes or free fluid. The urinary bladder and adnexa are normal. The uterus has been removed. The bony pelvis is unremarkable. Impression 1. No acute findings or abnormalities to explain the patient's symptoms. 2. Incidental findings as described Note: Radiology results need to be interpreted within a comprehensive clinical context. If you have questions about the radiology report, please contact the office of the ordering clinician. HUMAN CHORIONIC GONADOTROPIN QUANTITATIVE Result Value Ref Range Hcg Quant <1 <5 mIU/mL Narrative Female (non-): 0-4.9 mIU/mL Female (postmenopausal): 0-8.1 mIU/mL Indeterminate values for (e.g., 5-25 mIU/mL) may be confirmed with a repeat test in 48-72hours. Values in should double every 2-3 days for the first six weeks. Ingestion of eloy doses of biotin (>5 mg/day) taken within 8 hours of drawing blood sample can interfere with this immunoassay test. UA W/REFLEX TO CULTURE Specimen: Urine, Clean Catch Narrative The following orders were created for panel order UA W/REFLEX TO CULTURE. Procedure Abnormality Status --------- ------ URINALYSIS REFLEX[[id number]] Abnormal Final result EXTRA CRUZ URINE CX[[id number]] Final result Please view results for these tests on the individual orders. CBC WITH DIFF Result Value Ref Range WBC 10.8 (H) 3.7 - 10.3 x10(3)/mcL RBC 4.40 3.90 - 5.20 x10(6)/mcL Hgb 14.4 11.2 - 15.7 g/dL Hct 41.5 34.0 - 45.0 % MCV 94.3 80.0 - 100.0 fL MCH 32.7 26.0 - 34.0 pg MCHC 34.7 30.7 - 35.5 g/dL RDW 12.8 <=14.9 % Platelet 291 155 - 369 x10(3)/mcL MPV 9.4 8.8 - 12.5 fL Neut Percent 63.1 % Imm Gran% 0.3 % Lymph Percent 22.5 % Eddy Percent 10.5 % Eos Percent 3.1 % Baso Percent 0.5 % Neut # 6.8 (H) 1.6 - 6.1 x10(3)/mcL IMMGRAN# 0.0 0.0 - 0.1 x10(3)/mcL Lymph # 2.4 1.2 - 3.9 x10(3)/mcL Eddy # 1.1 (H) 0.3 - 0.9 x10(3)/mcL Eos# 0.3 0.0 - 0.5 x10(3)/mcL Baso # 0.1 0.0 - 0.1 x10(3)/mcL LIPASE LEVEL Result Value Ref Range Lipase Lvl 55 13 - 60 U/L COMPREHENSIVE METABOLIC PANEL Result Value Ref Range Sodium 138 136 - 145 mmol/L Potassium 3.1 (L) 3.5 - 5.0 mmol/L Chloride 98 98 - 107 mmol/L Total CO2 27 22 - 29 mmol/L Anion Gap 13 7 - 16 mmol/L Calcium 9.5 8.6 - 10.4 mg/dL Glucose Lvl 87 70 - 99 mg/dL BUN 22 (H) 6 - 20 mg/dL Creatinine 1.15 0.51 - 1.30 mg/dL Albumin 4.7 3.5 - 5.2 gm/dL Total Protein 7.8 6.4 - 8.3 gm/dL Bili Total 0.7 0.2 - 1.3 mg/dL ALT 18 <=41 U/L AST 22 <=40 U/L Alk Phos 89 36 - 123 U/L eGFR (CKD-EPIcr 2020) 61 >=60 mL/min/1.73 m2 URINALYSIS REFLEX Result Value Ref Range UA Color Light Yellow UA Appear Cloudy (A) Clear UA Glucose Negative Negative mg/dL UA Ketones Negative Negative mg/dL UA Blood Negative Negative UA pH 6.0 5.0 - 8.0 pH UA Protein Trace (10-20 mg/dL) Negative mg/dL UA Urobilinogen Normal <=1 mg/dL UA Bili Negative Negative UA Nitrite Negative Negative UA Leuk Est Negative Negative UA Spec Grav 1.020 1.001 - 1.035 no units UA WBC 5 (H) 0 - 4 /HPF UA RBC 1 0 - 3 /HPF UA Squam Epi 4+ /LPF UA Mucus Trace /LPF UA Bacteria Trace (A) Negative /HPF EXTRA TUBES PANEL Narrative The following orders were created for panel order EXTRA TUBES PANEL. Procedure Abnormality Status --------- ------ EXTRA LIGHT BLUE[[id number]] Final result Please view results for these tests on the individual orders. MAGNESIUM LEVEL Result Value Ref Range Magnesium 1.8 1.6 - 2.4 mg/dL ED Course: Appropriate laboratory and radiology studies reviewed Patient is a 39-year-old female presents emergency department for lower abdominal pain. Patient is nontoxic-appearing. She does not have any focal abdominal pain at time my evaluation, minimal generalized lower abd pain. Vital signs are unremarkable. She does report symptoms started after urinating, no other associated symptoms. Blood work was obtained, minimal leukocytosis, no transaminitis, no acute kidney injury, lipase is reassuring, particular given her history of pancreatitis. CT does notshow any acute findings, and urinalysis is without any evidence of infection, no significant hematuria. Patient was updated on all results. She is agreeable with discharge with dicyclomine. She requests Phenergan prescription as that has what has worked best for her in the past for her nausea and this will be prescribed for her. Follow-up with primary care ED Clinical Impression: Lower abdominal pain, acute Hypokalemia, acute Critical Care time MDM Medical Decision Making Problems Addressed: Hypokalemia: complicated acute illness or injury Lower abdominal pain: complicated acute illness or injury Amount and/or Complexity of Data Reviewed Labs: ordered. Radiology: ordered. Risk Prescription drug management. Condition at Discharge/Transfer from Department: Stable This chart was completed using voice recognition technology and may contain unintended errors [1] Allergies Allergen Reactions Avelox [Moxifloxacin] [2] Past Medical History: Diagnosis Date Arthritis Asthma Bipolar 2 disorder (HCC) COPD (chronic obstructive pulmonary disease) (HCC) Diabetes mellitus (HCC) H/O degenerative disc disease [3] No family history on file. [4] Past Surgical History: Procedure Laterality Date YOANDY-EN-Y GASTRIC BYPASS 2017 Rubina Gunderson MD 06/01/25 1411 documented in this encounter Plan of Treatment Upcoming Encounters Date Type Department Care Team (Late st Contact Info) Description 07/01/2025 9:00 AM EST Appointment [facility] [address] [place] [address] Ken Portillo MD [address] [place] [address] 08/10/2025 9:15 AM EST Office Visit [facility] [address] [facility] [place] [address] Magnolia Godoy PA [address] [place] [address] documented as of this encounter Procedures Procedure Name Priority Date/Time Associated Diagnosis Comments CT ABD PEL ED FAST W CONTRAST STAT 05/31/2025 8:48 AM EST EXTRA TUBES PANEL Routine 05/31/2025 8:1 5 AM EST EXTRA LIGHT BLUE Routine 05/31/2025 8:1 5 AM EST URINALYSIS REFLEX STAT 05/31/2025 7:3 9 AM EST UA W/REFLEX TO CULTURE STAT 7:39 AM EST EXTRA CRUZ URINE CX STAT 05/31/2025 7 :39 AM EST CBC WITH DIFF STAT 05/31/2025 7:39 AM EST HUMAN CHORIONIC GONADOTROPIN QUANTITATIVE STAT 05/31/2025 7:39 AM EST MAGNESIUM LEVEL Add-On 05/31/2025 7:39 AM EST LIPASE LEVEL STAT 05/31/2025 7:39 AM EST COMPREHENSIVE METABOLIC PANEL STAT 05/31/2025 7:39 AM EST documented in this encounter Results * CT ABD PEL ED FAST W CONTRAST (05/31/2025 8:48 AM EST) Anatomical Region Laterality Modality Abdomen, Pelvis Computed Tomogra phy 05/31/2025 8:48 AM EST Impressions 05/31/2025 9:02 AM EST 1. No acute findings or abnormalities to explain the patient's symptoms. 2. Incidental findings as described Note: Radiology results need to be interpreted within a comprehensive clinical context. If you have questions about the radiology report, please contact the office of the ordering clinician. Narrative 05/31/2025 9:02 AM EST CLINICAL HISTORY: -lower abd pain. COMPARISON: 08/14/2021. TECHNIQUE: CT ABD PEL ED FAST W CONTRAST on 05/31/2025 8:48 AM. Iodinated IV contrast as recorded in EPIC. Dose 1 : CT DLP Total : 1017.31 mGycm DLP Spiral Max : 1012.87 mGycm Maximum CTDI Vol : 19.35 mGy FINDINGS: Abdomen: The lung bases are clear. The visualized portions of the heart are normal. The liver, spleen, pancreas, adrenal glands, kidneys are normal. The gallbladder has been removed. Surgical changes are noted in the stomach. The caliber of the small bowel is normal. There are no enlarged abdominal lymph nodes or free fluid. The caliber of the aorta is normal. Degenerative changes are noted at L5-S1. Pelvis: The caliber of the colon is normal. The appendix is unremarkable. There are no enlarged pelvic lymph nodes or free fluid. The urinary bladder and adnexa are normal. The uterus has been removed. The bony pelvis is unremarkable. Procedure Note Silverio Barajas MD - 05/31/2025 CLINICAL HISTORY: -lower abd pain. COMPARISON: 08/14/2021. TECHNIQUE: CT ABD PEL ED FAST W CONTRAST on 05/31/2025 8:48 AM. IodinatedIV contrast as recorded in EPIC. Dose 1 : CT DLP Total : 1017.31 mGycm DLP Spiral Max : 1012.87 mGycm Maximum CTDI Vol : 19.35 mGy FINDINGS: Abdomen: The lung bases are clear. The visualized portions of the heartare normal. The liver, spleen, pancreas, adrenal glands, kidneys are normal. Thegallbladder has been removed. Surgical changes are noted in the stomach. The caliberof the small bowel is normal. There are no enlarged abdominal lymph nodes orfree fluid. The caliber of the aorta is normal. Degenerative changes are notedat L5-S1. Pelvis: The caliber of the colon is normal. The appendix is unremarkable.There are no enlarged pelvic lymph nodes or free fluid. The urinary bladder andadnexa are normal. The uterus has been removed. The bony pelvis isunremarkable. IMPRESSION: 1. No acute findings or abnormalities to explain the patient's symptoms. 2. Incidental findings as described Note: Radiology results need to be interpreted within a comprehensiveclinical context. If you have questions about the radiology report, please contactthe office of the ordering clinician. Rubina Gunderson MD IMG CT ORDERABLES Final Res ult * EXTRA LIGHT BLUE (05/31/2025 8:15 AM EST) Blood VENOUS BLOOD / Unknown Venipuncture / Unknown 05/31/2025 8:15 AM EST 05/31/2025 8:15 AM EST Alisson Brink COAL PIPELINE OPERATOR HEMATOLOGY ORDERABLES Final Re sult Performing Organization Address City/[facility] Co de Phone Number [facility] [address] [place] [address] * MAGNESIUM LEVEL (05/31/2025 7:39 AM EST) Magnesium 1.8 1.6 - 2.4 mg/dL 05/31/2025 9:03 AM EST [facility] Blood VENOUS BLOOD / Unknown Venipuncture / Unknown 05/31/2025 7:39 AM EST 05/31/2025 8:05 AM EST Rubina Gunderson MD CHEMISTRY ORDERABLES Final Result Performing Organization Address City/[facility] de Phone Number [facility] [address] [place] [address] * EXTRA CRUZ URINE CX (05/31/2025 7:39 AM EST) Urine STRUCTURE OF URINARY TRACT PROPER / Unknown 05/31/2025 7:39 AM EST 05/31/2025 8:05 AM EST us Rubina Gunderson MD MICROBIOLOGY - GENERAL GORDON GARCIA Final Result [facility] [address] [place] [address] * (ABNORMAL) URINALYSIS REFLEX (05/31/2025 7:39 AM EST) UA Color Light Yellow 05/31/2025 8:16 AM EST [facility] UA Appear Cloudy(A) Clear 05/31/2025 8:16 AM [facility] UA Glucose Negative Negative mg/dL 05/31/2025 8:16 AM [facility] UA Ketones Negative Negative mg/dL 05/31/2025 8:16 AM [facility] UA Blood Negative Negative 05/31/2025 8:16 AM [facility] UA pH 6.0 5.0 - 8.0 pH 05/31/2025 8:16 AM [facility] UA Protein Trace (10-20 mg/dL) Negative mg/dL 05/31/2025 8:16 AM [facility] UA Urobilinogen Normal <=1 mg/dL 8:16 AM [facility] UA Bili Negative Negative 05/31/2025 8:16 AM [facility] UA Nitrite Negative Negative 05/31/2025 8:16 AM [facility] UA Leuk Est Negative Negative 05/31/2025 8:16 AM [facility] UA Spec Grav 1.020 1.001 - 1.035 no units 05/31/2025 8:16 AM [facility] Comment:Reference range carlos d for random specimens only. UA WBC 5(H) 0 - 4 /HPF 05/31/2025 8:16 AM [facility] UA RBC 1 0 - 3 /HPF 05/31/2025 8:16 AM EST [facility] UA Squam Epi 4+ /LPF 05/31/2025 8:16 AM EST [facility] UA Mucus Trace /LPF 05/31/2025 8:16 AM EST [facility] UA Bacteria Trace(A) Negative /HPF 05/31/2025 8:16 AM EST [facility] Urine STRUCTURE OF URINARY TRACT PROPER / Unknown 05/31/2025 7:39 AM EST 05/31/2025 8:05 AM EST us Rubina Gunderson MD URINE ORDERABLES Final Resu lt [facility] [address] [place] [address] * (ABNORMAL) COMPREHENSIVE METABOLIC PANEL (05/31/2025 7:39 AM EST) Sodium 138 136 - 145 mmol/L 05/31/2025 8:31 AM [facility] Potassium 3.1(L) 3.5 - 5.0 mmol/L 05/31/2025 8:31 AM [facility] Chloride 98 98 - 107 mmol/L 05/31/2025 8:31 AM [facility] Total CO2 27 22 - 29 mmol/L 05/31/2025 8:31 AM [facility] Anion Gap 13 7 - 16 mmol/L 05/31/2025 8:31 AM [facility] Calcium 9.5 8.6 - 10.4 mg/dL 05/31/2025 8:31 AM [facility] Glucose Lvl 87 70 - 99 mg/dL 05/31/2025 8:31 AM [facility] BUN 22(H) 6 - 20 mg/dL 05/31/2025 8:31 AM [facility] Creatinine 1.15 0.51 - 1.30 mg/dL 05/31/2025 8:31 AM [facility] Albumin 4.7 3.5 - 5.2 gm/dL 05/31/2025 8:31 AM [facility] Total Protein 7.8 6.4 - 8.3 gm/dL 05/31/2025 8:31 AM EST [facility] Bili Total 0.7 0.2 - 1.3 mg/dL 05/31/2025 8:31 AM EST [facility] ALT 18 <=41 U/L 05/31/2025 8:31 AM EST [facility] AST 22 <=40 U/L 05/31/2025 8:31 AM EST [facility] Alk Phos 89 36 - 123 U/L 05/31/2025 8:31 AM EST [facility] eGFR (CKD-EPIcr 2020) 61 >=60 mL/min/1.7 3 m2 05/31/2025 8:31 AM EST [facility] Comment:Estimated GFR was ca lculated using the CKD-EPIcr (2020) equation refit without race. The equation is recommended by the [employer] - [place] [employer]ph[employer] Task Force. Blood VENOUS BLOOD / Unknown Venipuncture / Unknown 05/31/2025 7:39 AM EST 05/31/2025 8:05 AM EST Rubina Gunderson MD CHEMISTRY ORDERABLES Final Result Performing Organization Address City/[facility]/ZIP Co de Phone Number [facility] [address] [place] [address] * LIPASE LEVEL (05/31/2025 7:39 AM EST) Lipase Lvl 55 13 - 60 U/L 05/31/2025 8:31 AM EST [facility] Blood VENOUS BLOOD / Unknown Venipuncture / Unknown 05/31/2025 7:39 AM EST 05/31/2025 8:05 AM EST Rubina Gunderson MD CHEMISTRY ORDERABLES Final Result Performing Organization Address [facility] Co de Phone Number [facility] [address] [place] [address] * (ABNORMAL) CBC WITH DIFF (05/31/2025 7:39 AM EST) WBC 10.8(H) 3.7 - 10.3 x10(3)/mcL 05/31/2025 8:08 AM [facility] RBC 4.40 3.90 - 5.20 x10(6)/mcL 05/31/2025 8:08 AM [facility] Hgb 14.4 11.2 - 15.7 g/dL 05/31/2025 8:08 AM [facility] Hct 41.5 34.0 - 45.0 % 05/31/2025 8:08 AM [facility] MCV 94.3 80.0 - 100.0 fL 05/31/2025 8:08 AM [facility] MCH 32.7 26.0 - 34.0 pg 05/31/2025 8:08 AM [facility] MCHC 34.7 30.7 - 35.5 g/dL 05/31/2025 8:08 AM [facility] RDW 12.8 <=14.9 % 05/31/2025 8:08 AM [facility] Platelet 291 155 - 369 x10(3)/mcL 05/31/2025 8:08 AM [facility] MPV 9.4 8.8 - 12.5 fL 05/31/2025 8:08 AM [facility] Neut Percent 63.1 % 05/31/2025 8:08 AM [facility] Comment:Neutrophils equals s egs plus bands Imm Gran% 0.3 % 05/31/2025 8:08 AM [facility] Comment:Automated count of m etamyelocytes, myelocytes and promyelocytes. Lymph Percent 22.5 % 05/31/2025 8:08 AM [facility] Eddy Percent 10.5 % 05/31/2025 8:08 AM [facility] Eos Percent 3.1 % 05/31/2025 8:08 AM [facility] Baso Percent 0.5 % 05/31/2025 8:08 AM [facility] Neut # 6.8(H) 1.6 - 6.1 x10(3)/mcL 05/31/2025 8:08 AM EST [facility] Comment:Neutrophils equals s egs plus bands IMMGRAN# 0.0 0.0 - 0.1 x10(3)/[facility] 05/31/2025 8:08 AM EST [facility] Comment:Automated count of m etamyelocytes, myelocytes and promyelocytes. An absolute IG <0.1 is reported as 0.0. Lymph # 2.4 1.2 - 3.9 x10(3)/[facility] 05/31/2025 8:08 AM EST [facility] Eddy # 1.1(H) 0.3 - 0.9 x10(3)/[facility] 05/31/2025 8:08 AM EST [facility] Eos# 0.3 0.0 - 0.5 x10(3)/[facility] 05/31/2025 8:08 AM [facility] Baso # 0.1 0.0 - 0.1 x10(3)/[facility] 05/31/2025 8:08 AM EST [facility] Blood VENOUS BLOOD / Unknown Venipuncture / Unknown 05/31/2025 7:39 AM EST 05/31/2025 8:05 AM EST us Rubina Gunderson MD HEMATOLOGY ORDERABLES Final Result [facility] [address] [id number] * HUMAN CHORIONIC GONADOTROPIN QUANTITATIVE (05/31/2025 7:39 AM EST) [facility] Hcg Quant <1 <5 mIU/mL 05/31/2025 8:48 AM EST [facility] Blood VENOUS BLOOD / Unknown Venipuncture / Unknown 05/31/2025 7:39 AM EST 05/31/2025 8:05 AM EST Narrative [facility] - 05/31/2025 8:48 AM EST Female (non-): 0-4.9 mIU/mL Female (postmenopausal): 0-8.1 mIU/mL Indeterminate values for (e.g., 5-25 mIU/mL) may be confirmed with a repeat test in 48-72 hours. Values in should double every 2-3 days for the first six weeks. Ingestion of eloy doses of biotin (>5 mg/day) taken within 8 hours of drawing blood sample can interfere with this immunoassay test. us Rubina Gunderson MD CHEMISTRY ORDERABLES Final Result [facility] [address] [facility] [place] [id number] documented in this encounter Visit Diagnoses Diagnosis Lower abdominal pain- Primary Abdominal pain, other specified site Hypokalemia Hypopotassemia documented in this encounter Administered Medications Inactive Administered Medications - up to 1 most recent administrations Medication Order MAR Action Action Date Dose Rate Site iohexoL (OMNIPAQUE-350) solution 100 mL 100 mL, Intravenous, ONCE PRN, 1 dose, Starting on 05/31/25 at 0834, Until 05/31/25 at 0848, Other, Radiology Procedure, VESICANT , CT (Contrasts) Given 05/31/2025 8:48 AM EST 100 mL morphine injection 4 mg 4 mg, Intravenous, ONCE, 1 dose, On 05/31/25 at 0845 Given 05/31/2025 9:00 AM EST 4 mg ondansetron (ZOFRAN) injection 4 mg 4 mg, Intravenous, ONCE, 1 dose, On 05/31/25 at 0845 Given 05/31/2025 9:00 AM EST 4 mg potassium chloride (KLOR-CON) tablet 40 mEq 40 mEq, Oral, ONCE, 1 dose, On 05/31/25 at 0915 Given 05/31/2025 9:54 AM EST 40 mEq sodium chloride 0.9% syringe Intravenous, ONCE PRN, 1 dose, Starting on 05/31/25 at 0834, Until 05/31/25 at 0848, Line Care, Flush peripheral lines every 12 hours, central lines every 8 hours, and after IV medication, CT (Contrasts) Given 05/31/2025 8:48 AM EST 10 mL documented in this encounter Active and Recently Administered Medications Times are shown in EST. Scheduled Medication Order 05/29/2025 05/30/2025 05/31/2025 morphine injection 4 mg (COMPLETED) 4 mg, Intravenous, ONCE, 1 dose, On 05/31/25 at 0845 0900 (Given - Provid er: Dane Hanley, ARLEY) ondansetron (ZOFRAN) injection 4 mg (COMPLETED) 4 mg, Intravenous, ONCE, 1 dose, On 05/31/25 at 0845 0900 (Given - Provid er: Dane Hanley RN) potassium chloride (KLOR-CON) tablet 40 mEq (COMPLETED) 40 mEq, Oral, ONCE, 1 dose, On 05/31/25 at 0915 0954 (Given - Provid er: Marcelle Plummer RN) PRN Medication Order 05/29/2025 05/30/2025 05/31/2025 iohexoL (OMNIPAQUE-350) solution 100 mL (COMPLETED) 100 mL, Intravenous, ONCE PRN, 1 dose, Starting on 05/31/25 at 0834, Until 05/31/25 at 0848, Other, Radiology Procedure, VESICANT , CT (Contrasts) 0848 (Given - Provid er: Ana Franklin, ) sodium chloride 0.9% syringe (COMPLETED) Intravenous, ONCE PRN, 1 dose, Starting on 05/31/25 at 0834, Until 05/31/25 at 0848, Line Care, Flush peripheral lines every 12 hours, central lines every 8 hours, and after IV medication, CT (Contrasts) 0848 (Given - Provid er: RT Gavin) documented in this encounter Additional Health Concerns Assessment Noted Time PHQ-9 Depression Total Score: 10 025 3:35 PM EDT PHQ-2 Depression Total Score: 4 04/29/20 25 3:35 PM EDT documented as of this encounter Care Teams Material Handling Equipment [employer] Relationship Specialty Start Date End Date Ryan Love MD PCP - General Family Medicine 08/14/21 documented as of this encounter
--- OUTSIDE RECORDS SUMMARY | 2025-06-08 18:28 | XMS_ITS | Encounter Summary ---
Author Organization [place] [address] Care Team Providers Care Quantitative Research Analyst Name Role Phone Ryan Love MD Primary Care Provider [phone] Reason for Visit * Reason Comments Abdominal Pain Leg Swelling Feet and ankle swell ing, abdominal cramping - taking meds but not helping Encounter Details Date Type Department Care Team ([facility] st Contact Info) Description 06/08/2025 6:28 PM EST - 06/08/2025 7:48 PM EST Emergency [facility] [address] [place] [address] Eamon Sinha MD [address] [address] Generalized abdominal pain (Primary Dx) Discharge Disposition: Home or [...] medical care, and heating? Very hard 04/29/2025 [facility] [place] [facility] - Occupational Stress [...] money to get more. Often true 04/29/2025 [facility] Utilities Answer Date Recorded In the past 12 months has th e electric, gas, oil, or water [employer] threatened to shut off services in your home? No 04/29/2025 [facility] HRSN CMS IP Transportation Answer D [...] Sign Reading Time Taken Comments Blood Pressure 117/63 06/08/2025 6:31 PM EST Pulse 73 06/08/2025 6:30 PM EST Temperature 36.6 C (97.9 F) 06/08/2025 6:30 PM EST Respiratory Rate 18 06/08/2025 6:30 PM EST Oxygen Saturation 100% 06/08/2025 6:31 PM EST Inhaled Oxygen Concentration - - Weight - [...] this encounter Discharge Instructions * Discharge Instructions* Eamon Sinha MD - 06/08/2025 7:25 PM EST Follow-up with primary care physician. Return if worsening symptoms or any other concerns. * Attachments The following attachments cannot be sent through Care Everywhere. * Abdominal pain ([place]) documented in this encounter Medications at Time of Discharge albuterol (PROVENTIL) 2.5 mg /3 mL (0.083 %) Inhl Solution for Nebulization Take 2.5 mg by nebulization as needed for Wheezing. aspirin 81 mg Oral Tablet, Chewable Take 81 mg by mouth daily. azelastine (ASTELIN) 137 mcg (0.1 %) Nasl [place], Non-Aerosol 274 mcg in each nostril 2 [...] up to 30 days. 20 Tablet 05/31/2025 ketoconazole (NIZORAL) 2 % Top Cream Apply [...] up to 30 days. 30 Tablet 05/16/2025 5 documented as of this encounter Discharge Disposition Disposition Code Departure Means Destination Comment s Home or Self Half-Way documented in this encounter ED Notes * Eamon Sinha MD - 06/08/2025 6:15 PM EST CHIEF COMPLAINT Chief Complaint Patient presents with Abdominal Pain Leg Swelling Feet and ankle swelling, abdominal cramping - taking meds but not helping HPI Juliana Olguin is a 39 y.o. female who presents with abdominal pain. I reviewed the patient's external medical records which revealed a history of diabetes mellitus, COPD, bipolar affective disorder. She was discharged from the hospital 04/2025 after she was admitted with intractable back pain andright leg weakness. She underwent MRI of the L-spine, C-spine, T-spine that were all unremarkable. S he was seen by neurology and plan for outpatient follow-up. She was seen most recently in the emergency department 05/31 (8 days ago) with lower abdominal pain. She underwent laboratory workup and CTof the abdomen pelvis that was unremarkable. She was given Phenergan and discharged home. Patient presents with her who is present at the bedside. Status post cholecystectomy and hysterectomy. Gastric bypass surgery. She states that her pain has been ongoing for the past month. Describes a 7/10 sharp pain in her lower abdomen. At times it radiates into her back. It is not brought on by food. She does report 3 episodes of diarrhea in the past 24 hours. Nonbloody. Patient denies any pain or swelling in the legs, active treatment of malignancy, recent trips or travel, recent surgeries or procedures, prior PE, hemoptysis. Patient denies any fever, cough, anorexia, nausea, vomiting or any other symptoms. REVIEW OF SYSTEMS See HPI for further details. Remainder of Review of systems is otherwise negative. PAST MEDICAL HISTORY Past Medical History[1] FAMILY HISTORY Family History[2] SOCIAL HISTORY Social History[3] SURGICAL HISTORY Surgical History[4] CURRENT MEDICATIONS Current Medications[5] ALLERGIES Allergies[6] PHYSICAL EXAM ED Triage Vitals Temp 06/08/25 1830 97.9 ??F (36.6 ??C) Pulse 06/08/25 1816 87 Resp 06/08/25 1816 18 BP 06/08/25 1831 117/63 SpO2 06/08/25 1830 100 % Height -- Weight -- refer to nursing notes for most recent vital signs Constitutional: Awake, Alert & oriented x 3, oriented to person place and time. HENT: Normocephalic, Atraumatic, Bilateral external ears normal, Nose normal. Eyes: Conjunctiva normal no discharge. Neck: Normal range of motion, Supple, No stridor. Cardiovascular: Normal heart rate, Normal rhythm. Thorax & Lungs: Normal breath sounds, No respiratory distress, No chest tenderness. Abdomen: Soft, minimal tenderness to palpation of the lower abdomen, nondistended, no rebound or guarding Skin: Warm, Dry. Back: No tenderness. Extremities: No edema, No tenderness. Neurologic: No focal deficits Psych- euthymic LABS/RADIOLOGY/PROCEDURES No orders to display No orders to display Labs Reviewed CBC WITH DIFF - Abnormal Result Value WBC 7.0 RBC 3.52 (*) Hgb 11.6 Hct 34.6 MCV 98.3 MCH 33.0 MCHC 33.5 RDW 13.0 Platelet 203 MPV 9.0 Neut Percent 65.9 Imm Gran% 0.3 Lymph Percent 22.2 [place] Percent 8.0 Eos Percent 3.3 Baso Percent 0.3 Neut # 4.6 IMMGRAN# 0.0 Lymph # 1.6 [place] # 0.6 Eos# 0.2 Baso # 0.0 COMPREHENSIVE METABOLIC PANEL - Abnormal Sodium 141 Potassium 4.7 Chloride 113 (*) Total CO2 22 Anion Gap 6 (*) Calcium 8.8 Glucose Lvl 111 (*) BUN 14 Creatinine 0.91 Albumin 3.8 Total Protein 6.3 (*) Bili Total 0.2 ALT 17 AST 20 Alk Phos 88 eGFR (CKD-EPIcr 2020) 80 LIPASE LEVEL - Abnormal Lipase Lvl 83 (*) URINALYSIS REFLEX - Abnormal UA Color Colorless UA Appear Clear UA Glucose Negative UA Ketones Negative UA Blood Negative UA pH 6.5 UA Protein Negative UA Urobilinogen Normal UA Bili Negative UA Nitrite Negative UA Leuk Est 2+ (75 Yudi/mcl) (*) UA Spec Grav 1.012 UA WBC 3 UA RBC <1 UA Squam Epi 2+ URINE CULTURE (NO STAIN) UA W/REFLEX TO CULTURE Narrative: The following orders were created for panel order UA W/REFLEX TO CULTURE. Procedure Abnormality Status --------- ------ URINALYSIS REFLEX[[id number]] Abnormal Final result EXTRA CRUZ URINE CX[[id number]] In process Please view results for these tests on the individual orders. COURSE & MEDICAL DECISION MAKING Pertinent Labs & Imaging studies reviewed. (See chart for details) Medications sodium chloride 0.9% syringe 5-10 mL (has no administration in time range) sodium chloride 0.9% IV line flush 50 mL (has no administration in time range) droPERidol (INAPSINE) injection 2.5 mg (2.5 mg Intravenous Given 06/08/25 1850) Patient was seen in the emergency department and evaluated for the chief complaint as described in history of present illness. Complete history and physical were performed. Patient's presenting symptoms, physical exam, and diagnostic evaluation are consistent with abdominal pain. On laboratory workup there is no evidence of liver dysfunction. Patient has negative Lopez sign. Mild lipase elevation but is not 3 times the normal concerning for pancreatitis. Urinalysis shows no evidence of kidney stone or pyelonephritis. Patient received droperidol. Symptoms improved. She has an appointment to follow-up with her primary care physician within the next week. She may need to see GI if her symptoms persist. FINAL IMPRESSION 1. Generalized abdominal pain This chart was completed using voice recognition [...] packs/day: 0.50 Average packs/day: 0.5 packs/day for 28.5 years (14.2 ttl pk-yrs) Types: Cigarettes Start [...] true Transportation Needs: Unmet Transportation Needs (04/29/2025) [facility] IP Transportation In the past 12 months, has lack of reliable transportation kept you from medical appointments, meetings, work or from getting things needed for daily living?: Yes Physical Activity: Inactive (04/29/2025) Exercise Vital Sign Days of Exercise per Week: 0 days Minutes of Exercise per Session: 0 min Stress: Stress Concern Present (04/29/2025) [place] [place] [facility] - Occupational Stress Questionnaire Feeling of Stress: Very much Housing Stability: Low Risk (06/06/2022) [facility] from [employer] [facility] 1.0 What is your housing situation today?: I have housing [4] Past Surgical History: Procedure Laterality Date YOANDY-EN-Y GASTRIC BYPASS 2018 [5] Current Facility-Administered Medications: sodium chloride 0.9% IV line flush 50 mL, 50 mL, Intravenous, PRN, Eamon Sinha MD sodium chloride 0.9% syringe 5-10 mL, 5-10 mL, Intravenous, PRN, Eamon Sinha MD Current Outpatient Medications: albuterol (PROVENTIL) 2.5 mg /3 mL (0.083 %) Inhl Solution for Nebulization, Take 2.5 mg by nebulization as needed for Wheezing., Disp: , Rfl: aspirin 81 mg Oral Tablet, Chewable, Take 81 mg by mouth daily., Disp: , Rfl: azelastine (ASTELIN) 137 mcg (0.1 %) Nasl [place], Non-Aerosol, 274 mcg in each nostril 2 [...] mg by mouth daily., Disp: , Rfl: dicyclomine (BENTYL) 20 mg Oral Tablet, Take 1 Tablet by mouth every 6 hours as needed for Other (abdominal cramping) for up to 30 days., Disp: 20 Tablet, Rfl: 0 ketoconazole (NIZORAL) 2 % Top Cream, Apply [...] for Nausea or Vomiting., Disp: , Rfl: promethazine (PHENERGAN) 25 mg Oral Tablet, Take 1 Tablet by mouth every 6 hours as needed for Nausea or Vomiting for up to 30 days., Disp: 12 Tablet, Rfl: 0 QUEtiapine (SEROQUEL) 100 mg Oral Tablet, Take [...] Rfl: [6] Allergies Allergen Reactions Avelox [Moxifloxacin] Eamon Sinha MD 06/08/251924 documented in this encounter Plan of Treatment Upcoming Encounters Date Type Department Care Team (Late st Contact Info) Description 07/01/2025 9:00 AM EST Appointment [facility] [address] [place] [address] Ken Portillo MD [address] [place] [address] 08/10/2025 9:15 AM EST Office Visit [facility] [address] [place] [address] Magnolia Godoy PA [address] [place] [address] documented as of this encounter Procedures Procedure Name Priority Date/Time Associated Diagnosis Comments URINALYSIS REFLEX STAT 06/08/2025 7:0 3 PM EST UA W/REFLEX TO CULTURE STAT 7:03 PM EST EXTRA CRUZ URINE CX STAT 06/08/2025 7 :03 PM EST URINE CULTURE (NO STAIN) STAT 06/08/2025 7:03 PM EST CBC WITH DIFF STAT 06/08/2025 6:52 PM EST LIPASE LEVEL STAT 06/08/2025 6:52 PM EST COMPREHENSIVE METABOLIC PANEL STAT 06/08/2025 6:52 PM EST SALINE LOCK IV STAT 06/08/2025 6:42 PM EST documented in this encounter Results * URINE CULTURE (NO STAIN) (06/08/2025 7:03 PM EST) Culture Multiple bacterial species isolated from urine consistent with urogenital commensal organisms. 06/11/2025 6:40 AM EST [facility] Urine STRUCTURE OF URINARY TRACT PROPER / Unknown 06/08/2025 7:03 PM EST 06/08/2025 7:11 PM EST Eamon Sinha MD MICROBIOLOGY - GENERAL OR DERABLES Final Result [facility] [address] [facility] , [address] [place] [id number] * EXTRA CRUZ URINE CX (06/08/2025 7:03 PM EST) Urine STRUCTURE OF URINARY TRACT PROPER / Unknown 06/08/2025 7:03 PM EST 06/08/2025 7:05 PM EST us Eamon Sinha MD MICROBIOLOGY - GENERAL OR DERABLES Final Result [facility] [address] [place] [address] * (ABNORMAL) URINALYSIS REFLEX (06/08/2025 7:03 PM EST) UA Color Colorless 06/08/2025 7:11 PM EST [facility] UA Appear Clear Clear 06/08/2025 7:11 PM EST [facility] UA Glucose Negative Negative mg/dL 06/08/2025 7:11 PM EST [facility] UA Ketones Negative Negative mg/dL 06/08/2025 7:11 PM EST [facility] UA Blood Negative Negative 06/08/2025 7:11 PM EST [facility] UA pH 6.5 5.0 - 8.0 pH 06/08/2025 7:11 PM EST [facility] UA Protein Negative Negative mg/dL 06/08/2025 7:11 PM EST [facility] UA Urobilinogen Normal <=1 mg/dL 7:11 PM EST [facility] UA Bili Negative Negative 06/08/2025 7:11 PM EST [facility] UA Nitrite Negative Negative 06/08/2025 7:11 PM EST [facility] UA Leuk Est 2+ (75 Yudi/mcl)(A) Negative 06/08/2025 7:11 PM EST [facility] UA Spec Grav 1.012 1.001 - 1.035 no units 06/08/2025 7:11 PM EST [facility] Comment:Reference range carlos d for random specimens only. UA WBC 3 0 - 4 /HPF 06/08/2025 7:11 PM EST [facility] UA RBC <1 0 - 3 /HPF 06/08/2025 7:11 PM EST [facility] UA Squam Epi 2+ /LPF 06/08/2025 7:11 PM EST [facility] Urine STRUCTURE OF URINARY TRACT PROPER / Unknown 06/08/2025 7:03 PM EST 06/08/2025 7:05 PM EST us Eamon Sinha MD URINE ORDERABLES Final Re sult Performing Organization Address [facility]/ZIP Co de Phone Number [facility] [address] [place] [address] * (ABNORMAL) LIPASE LEVEL (06/08/2025 6:52 PM EST) Lipase Lvl 83(H) 13 - 60 U/L 06/08/2025 7:17 PM EST [facility] Blood VENOUS BLOOD / Unknown Venipuncture / Unknown 06/08/2025 6:52 PM EST 06/08/2025 6:55 PM EST us Eamon Sinha MD CHEMISTRY ORDERABLES Sandie l Result Performing Organization Address [facility] Co de Phone Number [facility] [address] [place] [address] * (ABNORMAL) COMPREHENSIVE METABOLIC PANEL (06/08/2025 6:52 PM EST) Sodium 141 136 - 145 mmol/L 06/08/2025 7:17 PM EST [facility] Potassium 4.7 3.5 - 5.0 mmol/L 06/08/2025 7:17 PM EST [facility] Chloride 113(H) 98 - 107 mmol/L 06/08/2025 7:17 PM EST [facility] Total CO2 22 22 - 29 mmol/L 06/08/2025 7:17 PM EST [facility] Anion Gap 6(L) 7 - 16 mmol/L 06/08/2025 7:17 PM EST [facility] Calcium 8.8 8.6 - 10.4 mg/dL 06/08/2025 7:17 PM EST [facility] Glucose Lvl 111(H) 70 - 99 mg/dL 06/08/2025 7:17 PM EST [facility] BUN 14 6 - 20 mg/dL 06/08/2025 7:17 PM EST [facility] Creatinine 0.91 0.51 - 1.30 mg/dL 06/08/2025 7:17 PM EST [facility] Albumin 3.8 3.5 - 5.2 gm/dL 06/08/2025 7:17 PM EST [facility] Total Protein 6.3(L) 6.4 - 8.3 gm/dL 06/08/2025 7:17 PM EST [facility] Bili Total 0.2 0.2 - 1.3 mg/dL 06/08/2025 7:17 PM EST [facility] ALT 17 <=41 U/L 06/08/2025 7:17 PM EST [facility] AST 20 <=40 U/L 06/08/2025 7:17 PM EST [facility] Alk Phos 88 36 - 123 U/L 06/08/2025 7:17 PM EST [facility] eGFR (CKD-EPIcr 2020) 80 >=60 mL/min/1.7 3 m2 06/08/2025 7:17 PM EST [facility] Comment:Estimated GFR was ca lculated using the CKD-EPIcr (2020) equation refit without race. The equation is recommended by the National Kidney Foundation - [place] [employer] Nephrology Task Force. Blood VENOUS BLOOD / Unknown Venipuncture / Unknown 06/08/2025 6:52 PM EST 06/08/2025 6:55 PM EST Eamon Sinha MD CHEMISTRY ORDERABLES Sandie arun Result [facility] [address] [place] [address] * (ABNORMAL) CBC WITH DIFF (06/08/2025 6:52 PM EST) [facility] WBC 7.0 3.7 - 10.3 x10(3)/mcL 06/08/2025 7:05 PM [facility] RBC 3.52(L) 3.90 - 5.20 x10(6)/mcL 06/08/2025 7:05 PM [facility] Hgb 11.6 11.2 - 15.7 g/dL 06/08/2025 7:05 PM [facility] Hct 34.6 34.0 - 45.0 % 06/08/2025 7:05 PM [facility] MCV 98.3 80.0 - 100.0 fL 06/08/2025 7:05 PM [facility] MCH 33.0 26.0 - 34.0 pg 06/08/2025 7:05 PM [facility] MCHC 33.5 30.7 - 35.5 g/dL 06/08/2025 7:05 PM [facility] RDW 13.0 <=14.9 % 06/08/2025 7:05 PM [facility] Platelet 203 155 - 369 x10(3)/mcL 06/08/2025 7:05 PM [facility] MPV 9.0 8.8 - 12.5 fL 06/08/2025 7:05 PM [facility] Neut Percent 65.9 % 06/08/2025 7:05 PM [facility] Comment:Neutrophils equals s egs plus bands Imm Gran% 0.3 % 06/08/2025 7:05 PM [facility] Comment:Automated count of m etamyelocytes, myelocytes and promyelocytes. Lymph Percent 22.2 % 06/08/2025 7:05 PM [facility] [place] Percent 8.0 % 06/08/2025 7:05 PM [facility] Eos Percent 3.3 % 06/08/2025 7:05 PM [facility] Baso Percent 0.3 % 06/08/2025 7:05 PM [facility] Neut # 4.6 1.6 - 6.1 x10(3)/mcL 06/08/2025 7:05 PM EST [facility] Comment:Neutrophils equals s egs plus bands IMMGRAN# 0.0 0.0 - 0.1 x10(3)/[facility] 06/08/2025 7:05 PM EST [facility] Comment:Automated count of m etamyelocytes, myelocytes and promyelocytes. An absolute IG <0.1 is reported as 0.0. Lymph # 1.6 1.2 - 3.9 x10(3)/[facility] 06/08/2025 7:05 PM EST [facility] [place] # 0.6 0.3 - 0.9 x10(3)/[facility] 06/08/2025 7:05 PM EST [facility] Eos# 0.2 0.0 - 0.5 x10(3)/[facility] 06/08/2025 7:05 PM EST [facility] Baso # 0.0 0.0 - 0.1 x10(3)/[facility] 06/08/2025 7:05 PM EST [facility] Blood VENOUS BLOOD / Unknown Venipuncture / Unknown 06/08/2025 6:52 PM EST 06/08/2025 6:55 PM EST Eamon Sinha MD HEMATOLOGY ORDERABLES Fin al Result [facility] [address] [place] [id number] documented in this encounter Visit Diagnoses Diagnosis Generalized abdominal pain- Primary Abdominal pain, generalized documented in this encounter Administered Medications Inactive Administered Medications - up to 1 most recent administrations Medication Order MAR Action Action Date Dose Rate Site droPERidol (INAPSINE) injection 2.5 mg 2.5 mg, Intravenous, ONCE, 1 dose, On Sun06/08/25 at 1845 Given 06/08/2025 6:50 PM EST 2.5 mg sodium chloride 0.9% IV line flush 50 mL 50 mL, Intravenous, at 999 mL/hr, PRN, Starting on Sun06/08/25 at 1842, Until Sun06/08/25 at 2348, Line Care, Flush with 50 mL after IVPB to insure complete administration of the dose. May use the saline infusion to back flush IVPB tubing as needed., Use this order to document priming and flushing IV line after medication administration. sodium chloride 0.9% syringe 5-10 mL 5-10 mL, Intravenous, PRN, Starting on Sun06/08/25 at 1842, Until Sun06/08/25 at 2348, Line Care, Flush with 5 mL saline pre/post IVP, and 5 mL prior to IVPB or blood product administration. Protocol for PERIPHERAL IV saline lock maintenance, flush with 3-5 mL saline syringe every 8 hours., Flush peripheral lines every 12 hours, central lines every 8 hours, and after IV medication documented in this encounter Active and Recently Administered Medications Times are shown in EST. Scheduled Medication Order 06/06/2025 06/07/2025 06/08/2025 droPERidol (INAPSINE) injection 2.5 mg (COMPLETED) 2.5 mg, Intravenous, ONCE, 1 dose, On Sun06/08/25 at 1845 1850 (Given - Provid er: Dulce Mccoy RN) PRN Medication Order 06/06/2025 06/07/2025 06/08/2025 sodium chloride 0.9% IV line flush 50 mL 50 mL, Intravenous, at 999 mL/hr, PRN, Starting on Sun06/08/25 at 1842, Until Sun06/08/25 at 2348, Line Care, Flush with 50 mL after IVPB to insure complete administration of the dose. May use the saline infusion to back flush IVPB tubing as needed., Use this order to document priming and flushing IV line after medication administration. sodium chloride 0.9% syringe 5-10 mL 5-10 mL, Intravenous, PRN, Starting on Sun06/08/25 at 1842, Until Sun06/08/25 at 2348, Line Care, Flush with 5 mL saline pre/post IVP, and 5 mL prior to IVPB or blood product administration. Protocol for PERIPHERAL IV saline lock maintenance, flush with 3-5 mL saline syringe every 8 hours., Flush peripheral lines every 12 hours, central lines every 8 hours, and after IV medication documented in this encounter Orders Medications Ordered That [place] ht Not Have Been Administered Count Last Ordered Date First Ordered Date sodium chloride 0.9% IV line flush 50 mL 1 06/08/2025 sodium chloride 0.9% syringe 5-10 mL 1 05/17 IV Count Last Ordered Date First Orde red Date SALINE LOCK IV 1 06/08/2025 documented in this encounter Additional Health Concerns Assessment Noted Time PHQ-9 Depression Total Score: 10 025 3:35 PM EDT PHQ-2 Depression Total Score: 4 04/29/20 25 3:35 PM EDT documented as of this encounter Care Teams Quantitative Research Analyst Relationship Specialty Start Date End Date Ryan Love MD PCP - General Family Medicine 08/14/21 documented as of this encounter
--- OUTSIDE RECORDS SUMMARY | 2025-06-12 09:56 | XMS_ITS | Encounter Summary ---
Author Organization [place] [address] Care Team Providers Care Scratch Polisher Name Role Phone Ryan Love MD Primary Care Provider Reason for Visit * Reason Comments Illness has coughing, sneezi ng, sore throat, achy Encounter Details Date Type Department Care Team ([facility] Contact Info) Description 06/12/2025 9:56 AM EST - 06/12/2025 11:05 AM EST Emergency [facility] [address] [place] [address] Tod Preston MD [address] [place] [id number] Upper respiratory tract infection, unspecified type (Primary Dx); Bronchitis Discharge Disposition: Home or Self Care Social [...] medical care, and heating? Very hard 04/29/2025 [facility] - Occupational Stress Questionnaire Answer Date [...] money to get more. Often true 04/29/[address] [facility] Utilities Answer Date Recorded In the past 12 months has th e [place], gas, oil, or water [employer] threatened to shut off services in your home? No 04/29/[address] [facility] HRSN CMS IP Transportation Answer D [...] Sign Reading Time Taken Comments Blood Pressure 120/59 06/12/2025 10:00 AM EST Pulse 94 06/12/2025 9:50 AM EST Temperature 36.6 C (97.9 F) 06/12/2025 9:57 AM EST Respiratory Rate 18 06/12/2025 9:50 AM EST Oxygen Saturation 98% 06/12/2025 9:50 AM EST Inhaled Oxygen Concentration - - Weight 128.8 kg (284 lb) 06/12/2025 9:57 AM EST Height 180.3 cm (5' 11 ) 06/12/2025 9:57 AM EST Body Mass Index 39.61 06/12/2025 9:57 AM EST documented in this encounter Functional [...] this encounter Discharge Instructions * Discharge Instructions* Kanchan Valencia APRN - 06/12/2025 10:55 AM EST Return if you develop a fever of 101.5 or greater if that does not break with Tylenol or Motrin Return if you develop any chest pain or shortness of breath Return if your symptoms have not improved within 3-4 days You may also benefit from taking an [id number] decongestant or antihistamine and directed on the label (consult your pharmacist) Stop smoking documented in this encounter Medications at Time of Discharge albuterol (PROVENTIL) 2.5 mg /3 mL (0.083 %) Inhl Solution for Nebulization Take 2.5 mg by nebulization as needed for Wheezing. aspirin 81 mg Oral Tablet, Chewable Take 81 mg by mouth daily. azelastine (ASTELIN) 137 mcg (0.1 %) Nasl Spencer, Non-Aerosol 274 mcg in each nostril 2 [...] to 30 days. 20 Tablet 05/31/2025 5 doxycycline hyclate (VIBRA-TABS) 100 mg Oral Tablet Take 1 Tablet by mouth 2 times daily for 7 days. 14 Tablet 06/12/2025 5 ketoconazole (NIZORAL) 2 % Top Cream [...] up to 30 days. 30 Tablet 05/16/2025 predniSONE (DELTASONE) 10 mg Oral Tablet 6day taper- Day 1: 6 tabs in AM; Day 2: 5 tabs in AM; Day 3: 4 tabs in AM; Day 4: 3 tabs in AM; Day 5: 2tabs in AM; Day 6 -1 tab in AM 21 Tablet 06/12/2025 documented as of this encounter Ordered Prescriptions Prescription Sig Dispense Quantity Refills Last Filled Start Date End Date doxycycline hyclate (VIBRA-TABS) 100 mg Oral Tablet Take 1 Tablet by mouth 2 times daily for 7 days. 14 Tablet 06/12/2025 06/19/2025 predniSONE (DELTASONE) 10 mg Oral Tablet 6day taper- Day 1: 6 tabs in AM; Day 2: 5 tabs in AM; Day 3: 4 tabs in AM; Day 4: 3 tabs in AM; Day 5: 2tabs in AM; Day 6 -1 tab in AM 21 Tablet 06/12/2025 06/18/2025 documented in this encounter Discharge Disposition Disposition Code Departure Means Destination Comment s Home or Self Long-Term documented in this encounter ED Notes * Kanchan Valencia APRN - 06/12/2025 9:49 AM EST Chief Complaint Patient presents with Illness has coughing, sneezing, sore throat, achy This is a 39-year-old female presents for evaluation of flulike symptoms since yesterday. She states that she has had a cough that is occasionally productive of a clear to yellow sputum, headache, congestion, sore throat, and myalgias. She denies any fever. Denies any ill contacts. Patient is a smoker. Denies any chest pain or shortness of breath. Here today for evaluation Past medical history significant for anxiety, asthma, COPD, hypertension, borderline personality disorder, and bipolar Patient History Allergies[1] Home Medications: Prior to Admission medications Medication Sig Start Date End Date Last Dose Authorizing Provider albuterol (PROVENTIL) 2.5 mg /3 mL (0.083 %) Inhl Solution for Nebulization Take 2.5 mg by nebulization as needed for Wheezing. Provider, Historical aspirin 81 mg Oral Tablet, Chewable Take 81 mg by mouth daily. Provider, Historical azelastine (ASTELIN) 137 mcg (0.1 %) Nasl Spencer, Non-Aerosol 274 mcg in each nostril 2 [...] 10 mg by mouth daily. Provider, Historical dicyclomine (BENTYL) 20 mg Oral Tablet Take 1 Tablet by mouth every 6 hours as needed for Other (abdominal cramping) for up to 30 days. 05/31/25 06/30/25 Rubina Gunderson MD doxycycline hyclate (VIBRA-TABS) 100 mg Oral Tablet Take 1 Tablet by mouth 2 times daily for 7 days. 06/12/25 06/19/25 Kanchan Valencia APRN ketoconazole (NIZORAL) 2 % Top Cream Apply [...] by mouth 2 times daily. Provider, Historical predniSONE (DELTASONE) 10 mg Oral Tablet 6day taper- Day 1: 6 tabs in AM; Day 2: 5 tabs in AM; Day 3: 4 tabs in AM; Day 4: 3 tabs in AM; Day 5: 2tabs in AM; Day 6 -1 tab in AM 06/12/25 06/18/25 Kanchan Valencia APRN prochlorperazine (COMPAZINE) 10 mg Oral Tablet Take 10 mg by mouth every 6 hours as needed for Nausea or Vomiting. Provider, Historical promethazine (PHENERGAN) 25 mg Oral Tablet Take 1 Tablet by mouth every 6 hours as needed for Nausea or Vomiting for up to 30 days. 05/31/25 06/30/25 Rubina Gunderson MD QUEtiapine (SEROQUEL) 100 mg Oral Tablet Take [...] Systems Constitutional: Negative for chills and fever. HENT: Positive for congestion, sneezing and sore throat. Eyes: Negative. Respiratory: Positive for cough. Negative for shortness of breath. Cardiovascular: Negative for chest pain, palpitations and leg swelling. Gastrointestinal: Negative for abdominal pain, diarrhea, nausea and vomiting. Genitourinary: Negative for dysuria and frequency. Musculoskeletal: Positive for myalgias. Skin: Negative for rash. Neurological: Negative. Psychiatric/Behavioral: Negative. All other systems reviewed and are negative. Physical Exam Blood pressure 120/59, pulse 94, temperature 97.9 ??F (36.6 ??C), temperature source Oral, resp. rate 18, height 5' 11 (1.803 m), weight 284 lb (128.8 kg), last menstrual period 09/13/2011, SpO2 98%, not currently . Physical Exam Vitals and nursing note reviewed. Constitutional: General: She is not in acute distress. Appearance: Normal appearance. She is well-developed. She is obese. HENT: Head: Normocephalic and atraumatic. Nose: Congestion present. Eyes: Conjunctiva/sclera: Conjunctivae normal. Pupils: Pupils are equal, round, and reactive to light. Cardiovascular: Rate and Rhythm: Normal rate and regular rhythm. Pulses: Normal pulses. Heart sounds: No murmur heard. No friction rub. No gallop. Pulmonary: Effort: Pulmonary effort is normal. No respiratory distress. Breath sounds: Normal breath sounds. Abdominal: General: Bowel sounds are normal. There is no distension. Palpations: Abdomen is soft. Tenderness: There is no abdominal tenderness. Musculoskeletal: General: Normal range of motion. Cervical back: Normal range of motion and neck supple. Lymphadenopathy: Cervical: No cervical adenopathy. Skin: General: Skin is warm and dry. Findings: No rash. Neurological: Mental Status: She is alert and oriented to person, place, and time. Mental status is at baseline. Psychiatric: Mood and Affect: Mood normal. Procedures Radiology/EKG/Labs: Results for orders placed or performed during the hospital encounter of 06/12/25 STREP A DNA Specimen: Throat; Swab Result Value Ref Range Strep A DNA Not Detected Not Detected Narrative The [employer] Strep A assay utilizes nucleic acid purification and polymerase chain reaction (PCR)technology to detect Streptococcus pyogenes by targeting a segment of the Streptococcus pyogenes genome. [id number] A/B Specimen: Nares; Swab Result Value Ref Range CORONAVIRUS [id number] Not Detected Not Detected Influenza A DNA Not Detected Not Detected Influenza B DNA Not Detected Not Detected Narrative This test was performed on the meghann jeremias analyzer using real-time RT-PCR. XR CHEST PA AND LATERAL Narrative PA AND LATERAL CHEST X-RAY, 06/12/2025 10:37 AM CLINICAL HISTORY: -cough COMPARISON: 04/02/2025. PROCEDURE COMMENTS: Frontal and lateral views of the chest. FINDINGS: Heart and mediastinal contours within normal limits for technique. No active failure, pneumonia, or visible effusion. No visible pneumothorax. Impression No acute finding. - Note: Radiology results need to be interpreted within a comprehensive clinical context. If you have questions about the radiology report, please contact the office of the ordering clinician. ED Course: Appropriate laboratory and radiology studies reviewed This is a 39-year-old female presents for evaluation of flulike symptoms Her flu, COVID, strep, and chest x-ray are all negative. She is a smoker and at high risk for pneumonia. Will treat for bronchitis. She is discharged home with prescription for doxycycline and steroids. She is comfortable with this plan and discharged home in good condition This patient is seen for Dr. Preston Tobacco Use Cessation Counseling I spent 4minutes discussing smoking cessation including long-term health risks, symptomatology association, steps to decreasing and eliminating tobacco use and follow up with primary care to discuss pharmacologic therapy. ED Clinical Impression: 1. Upper respiratory tract infection, unspecified type 2. Bronchitis Critical Care time MDM Medical Decision Making Condition at Discharge/Transfer from Department: Improved This chart was completed using voice recognition technology and may contain unintended errors [1] Allergies Allergen Reactions Avelox [Moxifloxacin] [2] Past Medical History: Diagnosis Date Arthritis Asthma Bipolar 2 disorder (HCC) COPD (chronic obstructive pulmonary disease) (HCC) Diabetes mellitus (HCC) H/O degenerative disc disease [3] No family history on file. [4] Past Surgical History: Procedure Laterality Date YOANDY-EN-Y GASTRIC BYPASS 2017 Kanchan Valencia APRN 06/12/25 1655 Cosigned by Tod Preston MD at 06/16/2025 12:30 PM EST Associated attestation - Tod Preston MD - 06/16/2025 12:30 PM EST I have reviewed the chief complaint and history of present illness and review of systems as well aspast medical/social/family history sections for this patient. I have examined this patient, including [id number] encounter, and participated in the care of this patient. I have reviewed the pertinent clinical information including physical exam, labs, radiographic studies and the plan. This patient was seen in coordination with the PA/ENVIRONMENTAL HEALTH NURSE. This chart was completed using voice recognition technology and may contain unintended errors documented in this encounter Plan of Treatment Upcoming Encounters Date Type Department Care Team (Late st Contact Info) Description 07/01/2025 9:00 AM EST Appointment [facility] [address] [place] [address] Ken Portillo MD [address] [place] [address] 08/10/2025 9:15 AM EST Office Visit [facility] [address] [place] [address] Magnolia Godoy PA [address] [place] [address] documented as of this encounter Procedures Procedure Name Priority Date/Time Associated Diagnosis Comments XR CHEST PA AND LATERAL STAT 06/12/2025 10:37 AM EST [id number] A/B Routine 06/12/2025 10: 07 AM EST STREP A DNA STAT 06/12/2025 10:07 AM EST documented in this encounter Results * XR CHEST PA AND LATERAL (06/12/2025 10:37 AM EST) Anatomical Region Laterality Modality Chest Radiographic Savanah ging 06/12/2025 10:3 7 AM EST Impressions 06/12/2025 10:40 AM EST No acute finding. - Note: Radiology results need to be interpreted within a comprehensive clinical context. If you have questions about the radiology report, please contact the office of the ordering clinician. Narrative 06/12/2025 10:40 AM EST PA AND LATERAL CHEST X-RAY, 06/12/2025 10:37 AM CLINICAL HISTORY: -cough COMPARISON: 04/02/2025. PROCEDURE COMMENTS: Frontal and lateral views of the chest. FINDINGS: Heart and mediastinal contours within normal limits for technique. No active failure, pneumonia, or visible effusion. No visible pneumothorax. Procedure Note Girish Kent MD - 06/12/2025 PA AND LATERAL CHEST X-RAY, 06/12/2025 10:37 AM CLINICAL HISTORY: -cough COMPARISON: 04/02/2025. PROCEDURE COMMENTS: Frontal and lateral views of the chest. FINDINGS: Heart and mediastinal contours within normal limits for technique. Noactive failure, pneumonia, or visible effusion. No visible pneumothorax. IMPRESSION: No acute finding. - Note: Radiology results need to be interpreted within a comprehensiveclinical context. If you have questions about the radiology report, please contactthe office of the ordering clinician. Kanchan Valencia APRN IMG DIAGNOSTIC IMAGING ORD ERABLES Final Result * [id number] A/B (06/12/2025 10:07 AM EST) CORONAVIRUS [id number] Not Detected Not Detected 06/12/2025 10:40 AM EST [facility] Influenza A DNA Not Detected Not Detected 06/12/2025 10:40 AM EST [facility] Influenza B DNA Not Detected Not Detected 06/12/2025 10:40 AM EST [facility] Swab BOTH ANTERIOR NARES / Unknown 06/12/2025 10:07 AM EST 06/12/2025 10:17 AM EST Narrative [facility] - 06/12/2025 10:40 AM EST This test was performed on the meghann jeremias analyzer using real-time RT-PCR. Kanchan Valencia APRN MICROBIOLOGY - GENERAL ORD ERABLES Final Result [facility] [address] [place] [address] * STREP A DNA (06/12/2025 10:07 AM EST) Strep A DNA Not Detected Not Detected 06/12/2025 10:36 AM EST [facility] Comment:Not Detected results do not preclude Streptococcus pyogenes infection and should not be used for the sole basis for treatment or other patient management decisions. A result of Not Detected does not rule out the presence of Group A Streptococcus DNA in concentrations below the level of detection of the assay. Swab STRUCTURE OF ANTERIOR REGION OF NECK / Unknown 06/12/2025 10:07 AM EST 06/12/2025 10:17 AM EST Narrative [facility] - 06/12/2025 10:36 AM EST The [employer] Strep A assay utilizes nucleic acid purification and polymerase chain reaction (PCR) technology to detect Streptococcus pyogenes by targeting a segment of the Streptococcus pyogenes genome. Kanchan Valencia [employer] MICROBIOLOGY - GENERAL ORD ERABLES Final Result [facility] [address] [place] [address] documented in this encounter Visit Diagnoses Diagnosis Upper respiratory tract infection, unspecified type- Primary Bronchitis Bronchitis, not specified as acute or chronic documented in this encounter Additional Health Concerns Infection Onset Date Last Indicated Resolved Time R/O COVID-19 06/12/2025 06/12/2025 06/12/2025 10:4 0 AM EST Assessment Noted Time PHQ-9 Depression Total Score: 10 025 3:35 PM EDT PHQ-2 Depression Total Score: 4 04/29/20 25 3:35 PM EDT documented as of this encounter Care Teams Scratch Polisher Relationship Specialty Start Date End Date Ryan Love MD PCP - General Family Medicine 08/14/21 documented as of this encounter
[2025-06-17 17:25] LABS: Alanine Aminotransferase 31 U/L (12-78); Albumin Level 4.5 g/dl (3.5-5.0); Albumin/Globulin Ratio 1.5 (1.1-1.8); Alkaline Phosphatase 99 U/L (38-126); Anion Gap 10.1 mEq/L (5-15); Aspartate Amino Transferase 29 U/L (14-36); Bilirubin,Total 0.7 mg/dl (0.2-1.3); Blood Urea Nitrogen 16 mg/dl (7-17); Calcium 9.7 mg/dl (8.4-10.2); Carbon Dioxide 24 mmol/L (22.0-30.0); Chloride 100 mmol/L (98-107); Creatinine,Serum 0.80 mg/dl (0.52-1.04); Estimated Glomerular Filt Rate 79 ml/min (>60); GFR (African American) 95 ML/MIN (>60); Globulin 3.1 g/dL (1.3-3.2); Glucose 101 mg/dl (74-100); Potassium 3.1 mmoL/L (3.5-5.1); Sodium 131 mmol/L (136-145); Total Protein,Serum 7.6 g/dl (6.3-8.2)
[2025-06-17 17:51] LABS: Thyroid Stimulating Hormone 1.76 uIU/mL (0.465-4.68)
[2025-06-17 18:26] LABS: Hemoglobin A1C 5.4 % (4.0-6.0)
--- OUTSIDE RECORDS SUMMARY | 2025-06-18 08:00 | XMS_ITS | Encounter Summary ---
Author Organization [place] [address] Care Team Providers Care Software Applications Developer Name Role Phone Ryan Love MD Primary Care Provider Reason for Referral * Interventional Radiology (Routine) - Authorized Specialty Diagnoses / Procedures Referred By Contac t Referred To Contact Radiology Diagnoses Lumbar radiculopathy Procedures IR LUMBAR/SACRAL JAMESON WITH GUIDANCE Ken Portillo MD [address] [place] [address] Phone: tel: fax: Referral ID Status Reason Start Date Expiration Date V isits Requested Visits Authorized [id number] Authorized 06/18/2025 06/18/2026 1 1 Reason for Visit * Reason Comments Back Pain * Consultation (Routine) - Pending Review Specialty Diagnoses / Procedures Referred By Contac t Referred To Contact Neurosurgery Diagnoses Intractable back pain Procedures MO OFFICE/OUTPATIENT NEW MODERATE MDM 45 MINUTES Eric Gerardo MD [address] [place] [address] Phone: tel: fax: Referral ID Status Reason Start Date Expiration Date V isits Requested Visits Authorized [id number] Pending Review 05/02/2025 05/02/2026 1 1 Encounter Details Date Type Department Care Team (Late st Contact Info) Description 06/18/2025 8:00 AM EST Office Visit [facility] [address] [place] [address] Ken Portillo MD [address] [place] [address] Lumbar radiculopathy (Primary Dx); Degeneration of intervertebral disc of lumbar region with discogenic back pain; Lumbar spondylosis; Tobacco abuse; Chronic obstructive pulmonary disease, unspecified COPD type (HCC); Uncomplicated asthma, unspecified asthma severity, unspecified whether persistent; Bipolar 2 disorder (HCC); Borderline personality disorder in adult (HCC) Social History Tobacco Use Types Packs/Day Years [...] medical care, and heating? Very hard 04/29/2025 [facility] - Occupational Stress [...] get more. Often true 04/29/2025 [facility] Utilities Answer Date Recorded In the past 12 months has th e electric, gas, oil, or water company threatened to shut off services in your home? No 04/29/2025 [facility] Transportation Answer D ate Recorded [...] Sign Reading Time Taken Comments Blood Pressure - - Pulse 77 06/18/2025 7:59 AM EST Temperature - - Respiratory Rate - - Oxygen Saturation 93% 06/18/2025 7:59 AM EST Inhaled Oxygen Concentration - - Weight 129.7 kg (286 lb) 06/18/2025 7:59 AM EST Height - - Body Mass Index 39.89 06/12/2025 9:57 AM EST documented in this [...] Selwyn Harrison RN documented in this encounter Ordered Prescriptions Prescription Sig Dispense Quantity Refills Last Filled Start Date End Date pregabalin (LYRICA) 50 mg Oral CapsuleIndications: Lumbar radiculopathy Take 1 Capsule by mouth 2 times daily. 60 Capsule 06/18/2025 documented in this encounter Progress Notes * Ken Portillo MD - 06/18/2025 8:00 AM EST Images from the original note were not included. 1. Did you complete advanced imaging? Yes MRI. Date: 04/30/2025 2. Have you completed 6 weeks of physical therapy? No. 3. Have you been treated by a chiropractor? No 4. Have you completed a Home Exercise Program? No. 5. Have you completed and interventional pain management procedures in the past? yes 6. What is your highest pain level throughout the day? 10 Subjective Subjective: Patient ID: Juliana Olguin is a 40 y.o. female who presents today for Chief Complaint Patient presents with ??? Back Pain HPI: Juliana Olguin is a 40 y.o. year old female who was referred to our clinic by Eric Gerardo MD for consultation, evaluation and treatment regarding their pain. Their pain has been present for several years. No associated inciting event or trauma. Symptoms have progressively increased since symptom onset. Their symptoms have previously been evaluated by their primary care provider, a spine surgeon, and a physical therapist. Prior diagnostic studies include MRI. Prior pharmacologic treatment includes acetaminophen, NSAID's, and muscle relaxants. The patient has previously undergone physicaltherapy, physician directed home exercise, and injections, which resulted in partial, short term relief of pain. No history of prior spine surgery. Presents for eval of low back pain. States this has been ongoing for several years. States it is a deep aching stabbing pain in the midline of her back. Will worsen with prolonged standing, bending, sitting, lifting. HAS undergone PT without relief. States she underwent JAMESON in [place] without significant relief. She has undergone S1 TFESI with orthocincy which resulted in ER visit. States trish is not diabetic. She has been having ins and needles in her feet. Has taken gabapentin for overa year in the past without relief. Characterization of Primary Pain: Location of Pain: Low-back - bilateral Pain Ratin/10 on NRS Quality: sharp, shooting, stabbing, numbness, and tingling Temporal Profile: constant with intermittent exacerbations Referral Pattern: Pain radiates down the right and left leg Exacerbating Factors: increased activity, activities of daily living, prolonged standing, walking, twisting, lifting, and bending Relieving Factors: rest and medications Associated Symptoms: Patient denies any red flag symptoms such as urinary/bowel incontinence, progressive weakness in the extremities, and/or saddle anesthesia. Review of Systems Constitutional: Positive for activity change. Musculoskeletal: Positive for back pain. Neurological: Positive for dizziness and light-headedness. Negative for headaches. Hematological: Bruises/bleeds easily. Psychiatric/Behavioral: Positive for sleep disturbance. All other systems reviewed and are negative. Past Medical History[1] Surgical History[1] Family History[1] Social History Socioeconomic History ??? Marital status: Spouse name: Not on file ??? Number of children: Not on file ??? Years of education: Not on file ??? Highest education level: Not on file Occupational History ??? Not on file Tobacco Use ??? Smoking status: Every Day Current packs/day: 0.50 Average packs/day: 0.5 packs/day for 28.5 years (14.2 ttl pk-yrs) Types: Cigarettes Start date: 12/25/1996 ??? Smokeless tobacco: Never Vaping Use ??? Vaping status: Not on file Substance and Sexual Activity ??? Alcohol use: Yes Comment: occ ??? Drug use: No ??? Sexual activity: Not on file Other Topics Concern ??? Not on file Social History Narrative ??? Not on file Social Drivers of Health Financial Resource Strain: High Risk (04/29/2025) Overall Financial Resource Strain (CARDIA) ??? Difficulty of Paying Living Expenses: Very hard Food Insecurity: Food Insecurity Present (04/29/2025) Hunger Vital Sign ??? Worried About Running Out of Food in the Last Year: Often true ??? Ran Out of Food in the Last Year: Often true Transportation Needs: Unmet Transportation Needs (04/29/2025) [facility] IP Transportation ??? In the past 12 months, has lack of reliable transportation kept you from medical appointments, meetings, work or from getting things needed for daily living?: Yes Physical Activity: Inactive (04/29/2025) Exercise Vital Sign ??? Days of Exercise per Week: 0 days ??? Minutes of Exercise per Session: 0 min Stress: Stress Concern Present (04/29/2025) [facility] - Occupational Stress Questionnaire ??? Feeling of Stress: Very much Social Connections: Not on file Intimate Partner Violence: Not on file Housing Stability: Low Risk (06/06/2022) Received from [employer] Medicaid PRAPARE Survey 1.0 ??? What is your housing situation today?: I have housing Patients past medical, surgical, family and social histories were reviewed and updated. There were no changes except as noted. Current Medications[1] Objective Objective: Vitals: 06/18/25 0759 Pulse: 77 SpO2: 93% Weight: 286 lb (129.7 kg) Body mass index is 39.89 kg/m??. Physical Exam Constitutional: Appearance: Normal appearance. She is obese. HENT: Head: Normocephalic and atraumatic. Mouth/Throat: Mouth: Mucous membranes are moist. Pharynx: Oropharynx is clear. Eyes: Extraocular Movements: Extraocular movements intact. Conjunctiva/sclera: Conjunctivae normal. Pulmonary: Effort: Pulmonary effort is normal. Musculoskeletal: General: Tenderness present. Lumbar back: Tenderness present. Decreased range of motion. Positive right straight leg raise test and positive left straight leg raise test. Back: Comments: bilateral lumbar facet loading. Skin: General: Skin is warm and dry. Capillary Refill: Capillary refill takes less than 2 seconds. Neurological: General: No focal deficit present. Mental Status: She is alert and oriented to person, place, and time. Motor: Weakness present. Deep Tendon Reflexes: Reflex Scores: Tricep reflexes are 2+ on the right side and 2+ on the left side. Bicep reflexes are 2+ on the right side and 2+ on the left side. Brachioradialis reflexes are 2+ on the right side and 2+ on the left side. Patellar reflexes are 2+ on the right side and 2+ on the left side. Achilles reflexes are 2+ on the right side and 2+ on the left side. Psychiatric: Mood and Affect: Mood normal. Behavior: Behavior normal. Image Review: Results for orders placed during the hospital encounter of 04/29/25 MRI LUMBAR SPINE WO CONTRAST Narrative MRI LUMBAR SPINE WITHOUT CONTRAST, 04/29/2025 5:11 [...] Mild right neuroforaminal stenosis. Canal is patent Impression Overall mild lumbar spine degenerative changes without high-grade neuroforaminal or canal stenosis. Facet synovitis at L4-L5 is possibly degenerative. - Note: Radiology results need to be interpreted within a comprehensive clinical context. If you have questions about the radiology report, please contact the office of the ordering clinician. No results found for this or any previous visit. Results for orders placed during the hospital encounter of 04/29/25 MRI CERVICAL SPINE WO CONTRAST Narrative MR CERVICAL SPINE WITHOUT CONTRAST, 04/30/2025 5:15 PM CLINICAL HISTORY: -BLE weakness. COMPARISON: None. PROCEDURE COMMENTS: Multiplanar multiecho MR imaging of the cervical spine per protocol. FINDINGS: No malalignment or concerning marrow signal abnormality. Cord signal unremarkable. There is minor broad-based disc bulge present at C4-5 and C5-6 and C6-7 without significant central stenosis or foraminal narrowing Impression Minor discogenic changes without neural compression. No cord signal alteration. - Note: Radiology results need to be interpreted within a comprehensive clinical context. If you have questions about the radiology report, please contact the office of the ordering clinician. No results found for this or any previous visit. No results found for this or any previous visit. Results for orders placed during the hospital encounter of 02/20/25 XR [...] contact the office of the ordering clinician. Results for orders placed during the hospital encounter of 02/20/25 XR CERVICAL SPINE AP LATERAL ODONTOID AND [...] contact the office of the ordering clinician. Prescription Monitoring Program: 04/22/2021 11:00 AM AMB SPINE RISK TOOL (ORT) How often do you have mood swings? Seldom How often do you smoke a cigarette within an hour after you wake up? Often How often have any of your family members, including parents and grandparents, had a problem w/ alcohol or drugs? Never How often have any of your close friends had a problem with alcohol or drugs? Never How often have others suggested that you have a drug or alcohol problem? Never How often have you attended an AA or NA meeting? Never How often have you taken medication other than the way that it was prescribed? Never How often have you been treated for an alcohol or drug problem? Never How often have your medications been lost or stolen? Never How often have others expressed concern over your use of medications? Never How often have you felt a craving for medications? Never How often have you been asked to give a urine screen for substance abuse? Never How often have you used illegal drugs (for example, marijuana, cocaine, etc.) in the past five years? Never How often, in your lifetime, have you had legal problems or been arrested? 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 . Assessment and Plan: Diagnoses and all orders for this visit: Lumbar radiculopathy - pregabalin (LYRICA) 50 mg Oral Capsule; Take 1 Capsule by mouth 2 times daily. Dispense: 60 Capsule; Refill: 0 - IR LUMBAR/SACRAL JAMESON WITH GUIDANCE; Future Degeneration of intervertebral disc of lumbar region with discogenic back pain Lumbar spondylosis Tobacco abuse Chronic obstructive pulmonary disease, unspecified COPD type (HCC) (Chronic) Uncomplicated asthma, unspecified asthma severity, unspecified whether persistent Bipolar 2 disorder (HCC) (Chronic) Borderline personality disorder in adult (HCC) (Chronic) Plan: - Presents for evaluation of bilateral low back pain and bilateral leg pain. - Pain rating down the posterior aspect of her leg stopping around her ankles. - Has been ongoing for many years. - Has undergone physical therapy in the past without significant relief of pain. Has undergone multiple conservative medications without relief. - Start Lyrica 50 mg twice daily as needed - Has positive straight leg raise bilaterally. - Recommend LESI. - MRI of the lumbar spine shows moderate to severe disc space narrowing with type II Modic changes at L5-S1 with central disc herniation with subarticular recess stenosis. - She also has bilateral facet hypertrophy - Pending results of LESI consider LMBB/RFA. - Also has component of vertebrogenic low back pain with Modic changes on MRI, consider Intracept in the - The patient was provided with an instructional packet in order to perform physician directed homeexercise program (HEP) at least 30 minutes per day and at least 5 times per week. Back pain specific exercises that were provided to the patient includes: Sinlge knee to Chest, Pelvic tilt, Cat-Cow, Press-ups, Bridges, Belly Crunches, Sphinx Pose and Back Lifts. - We discussed that she will continue Physical Therapy for at least 4-6 weeks prior to re-evaluation. - fu after GERTRUDE Portillo MD Interventional Pain Management [facility] Spine [facility] [1] Past Medical History: Diagnosis Date ??? Arthritis ??? Asthma ??? Bipolar 2 disorder (HCC) ??? COPD (chronic obstructive pulmonary disease) ([facility]) ??? Diabetes mellitus ([facility]) ??? H/O degenerative disc disease [1] Past Surgical History: Procedure Laterality Date ??? YOANDY-EN-Y GASTRIC BYPASS 2018 [1] No family history on file.[1] Current Outpatient Medications: ??? albuterol (PROVENTIL) 2.5 mg /3 mL (0.083 %) Inhl Solution for Nebulization, Take 2.5 mg by nebulization as needed for Wheezing., Disp: , Rfl: ??? aspirin 81 mg Oral Tablet, Chewable, Take 81 mg by mouth daily., Disp: , Rfl: ??? azelastine (ASTELIN) 137 mcg (0.1 %) Nasl [place], Non-Aerosol, 274 mcg in each nostril 2 times daily. Use in each nostril as directed, Disp: , Rfl: ??? baclofen (LIORESAL) 10 mg Oral Tablet, Take 10 mg by mouth 2 times daily., Disp: , Rfl: ??? budesonide-formoteroL (SYMBICORT) 160-4.5 mcg/actuation Inhl HFA Aerosol Inhaler, Inhale 2 Puffs into the lungs 2 times daily., Disp: , Rfl: ??? bumetanide (BUMEX) 2 mg Oral Tablet, Take 2 mg by mouth daily., Disp: , Rfl: ??? cetirizine (ZYRTEC) 10 mg Oral Tablet, Take 10 mg by mouth daily., Disp: , Rfl: ??? dicyclomine (BENTYL) 20 mg Oral Tablet, Take 1 Tablet by mouth every 6 hours as needed for Other (abdominal cramping) for up to 30 days., Disp: 20 Tablet, Rfl: 0 ??? doxycycline hyclate (VIBRA-TABS) 100 mg Oral Tablet, Take 1 Tablet by mouth 2 times daily for 7days., Disp: 14 Tablet, Rfl: 0 ??? ketoconazole (NIZORAL) 2 % Top Cream, Apply topically 2 times daily as needed for Itching., Disp: , Rfl: ??? LEVOthyroxine (SYNTHROID) 112 mcg Oral Tablet, Take 112 mcg by mouth daily., Disp: , Rfl: ??? lithium (LITHOBID) 450 mg Oral Tablet Sustained Release, Take 450 mg by mouth 2 times daily., Disp: , Rfl: ??? methylphenidate ER 36 mg tablet,extended release 24 hr, Take 36 mg by mouth daily., Disp: , Rfl: ??? montelukast (SINGULAIR) 10 mg Oral Tablet, Take by mouth every evening., Disp: , Rfl: ??? naloxegoL (MOVANTIK) 25 mg Oral Tablet, Take 25 mg by mouth daily., Disp: , Rfl: ??? naproxen (NAPROSYN) 500 mg Oral Tablet, Take 1 Tablet by mouth 2 times daily as needed for Painfor up to 30 days., Disp: 30 Tablet, Rfl: 0 ??? oxybutynin (DITROPAN) 5 mg Oral Tablet, Take 5 mg by mouth 2 times daily., Disp: , Rfl: ??? predniSONE (DELTASONE) 10 mg Oral Tablet, 6day taper- Day 1: 6 tabs in AM; Day 2: 5 tabs in AM;Day 3: 4 tabs in AM; Day 4: 3 tabs in AM; Day 5: 2tabs in AM; Day 6 -1 tab in AM, Disp: 21 Tablet, Rfl: 0 ??? prochlorperazine (COMPAZINE) 10 mg Oral Tablet, Take 10 mg by mouth every 6 hours as needed forNausea or Vomiting., Disp: , Rfl: ??? promethazine (PHENERGAN) 25 mg Oral Tablet, Take 1 Tablet by mouth every 6 hours as needed for Nausea or Vomiting for up to 30 days., Disp: 12 Tablet, Rfl: 0 ??? QUEtiapine (SEROQUEL) 100 mg Oral Tablet, Take 100 mg by mouth daily at 8pm., Disp: , Rfl: ??? rosuvastatin (CRESTOR) 20 mg Oral Tablet, Take 20 mg by mouth daily., Disp: , Rfl: ??? spironolactone (ALDACTONE) 100 mg Oral Tablet, Take 100 mg by mouth daily., Disp: , Rfl: ??? vortioxetine (TRINTELLIX) 10 mg Oral tablet, Take 10 mg by mouth daily., Disp: , Rfl: ??? pregabalin (LYRICA) 50 mg Oral Capsule, Take 1 Capsule by mouth 2 times daily., Disp: 60 Capsule, Rfl: 0 documented in this encounter Miscellaneous Notes * Patient Instructions - Ivy Miller MA - 06/18/2025 8:00 AM EST Epidural Steroid Injection An epidural steroid injection is given to relieve pain in the neck, back, or legs. This procedure involves injecting a steroid and a local anesthetic (drug that causes local numbness) into the epidural space. The epidural space is the space between the outer covering of the spinal cord (the cord ofnerve tissue that extends from the brain) and the vertebra (bone of the spinal column). The epidural steroid injection helps in reducing the pain that is caused by the irritation/swelling of the nerve root. However, it does not cure the underlying problem. The injection may be given for the following conditions: ?? Changes in the disk (a soft, gel-like cushion between two vertebrae) due to wear and tear. ?? A reduction in the space within the spinal canal. ?? Slipped disk. ?? Lumbar (low back) sprain. ?? Sciatica (shooting pain that radiates down the buttocks and the back of the leg due to compression of the nerve). ?? Fracture or weakness of the vertebra. ?? Pain that develops after a surgery of the spine. ?? Pain that arises after an attack of shingles (viral infection affecting the nerves). BEFORE THE PROCEDURE The caregiver may ask about your symptoms, do a detailed exam, and advise some tests. These tests may include imaging studies. Your caregiver may review the results of your tests and discuss the procedure with you. You may be advised to stop taking blood-thinning medicines a few days before the procedure. LET YOUR CAREGIVER KNOW ABOUT: ?? Any infection that you may have. ?? Any other disease or condition. ?? Allergies. ?? High blood pressure. ?? Medicines that you are already taking, especially blood thinners. ?? Bleeding or blood problems. ?? , if applicable. PROCEDURE You may remain awake during the whole procedure. You may be asked to lie on your stomach. The site of the injection is cleansed. Then, the injection site is numbed using a local anesthetic. A hollow needle is directed through your skin into the epidural space with the help of a special x-ray. The x-ray helps to ensure that the steroid is delivered closest to the affected nerve. You may have some minimal discomfort at this time. Once the needle is in the right position, the local anesthetic and the steroid are injected into the epidural space. The needle is then removed. The skin is cleaned and a bandage is applied. The entire procedure takes only a few minutes, although repeated injections may be required. RISKS & COMPLICATIONS OF THE PROCEDURE The complications due to the needle insertion are: ?? Headache. ?? Bleeding. ?? Infection. ?? Allergic reaction. ?? Damage to the nerves. The complications due to the steroid are: ?? Weight gain. ?? Hot flushes. ?? Mood swings. ?? Lack of sleep. ?? Increase in blood sugar levels. ?? Retention of water. The response to this procedure depends on the underlying cause of the pain and its duration. AFTER THE PROCEDURE ?? You may be monitored for a short time before you go home. ?? You may feel weakness or numbness in your arm/leg, which disappears within 1- 2 hours. ?? Someone should drive you home. ?? You may be allowed to eat, drink, and take your regular medicine. ?? Your pain may improve or worsen immediately after the procedure. ?? You may feel the beneficial effect of the steroid a few days later. ?? You may have soreness at the site of the injection. ?? If you have only partial relief of the pain, the injection may be repeated once or even twice within 4-8 weeks of the initial injection. HOME CARE INSTRUCTIONS ?? Avoid the use of heat on the injection site for a day. ?? Do not have a tub bath or soak in water for the rest of that day. ?? Remove the bandage on the next day. ?? Resume your normal activities on the next day. ?? Use ice packs or mild painkillers to reduce the soreness around the injection site. SEEK MEDICAL CARE IF: ?? You develop fever (more than 100.5??F (38.1??C)). ?? You continue to have pain and soreness over the injection site even after taking medicines. SEEK IMMEDIATE MEDICAL CARE IF: ?? You have severe back pain, which is not relieved by medications. ?? You develop severe headache. ?? You develop any new numbness or weakness of your legs. ?? You lose control over your bladder/bowel movements. ?? You develop fever more than 102??F (38.9 ?? C). Document Released: 10/08/2008 Document Re-Released: 04/10/2009 ExitCare?? Patient Information ??2009 [email or web address]. documented in this encounter Plan of Treatment Upcoming Encounters Date Type Department Care Team (Late st Contact Info) Description 07/01/2025 9:00 AM EST Appointment [facility] [address] [place] [address] Ken Portillo MD [address] [place] [address] 08/10/2025 9:15 AM EST Office Visit [facility] [address] [place] [address] Magnolia Godoy PA [address] [place] [address] Scheduled Orders Name Type Priority Associated Diagnoses Orde r Schedule IR LUMBAR/SACRAL JAMESON WITH GUIDANCE Imaging Routine Lumbar radiculopathy 1 Occurrences starting 06/18/2025 until 06/18/2026 documented as of this encounter Visit Diagnoses Diagnosis Lumbar radiculopathy- Primary Thoracic or lumbosacral neuritis or radiculitis, unspecified Degeneration of intervertebral disc of lumbar region with discogenic back pain Lumbar spondylosis Lumbosacral spondylosis without myelopathy Tobacco abuse Tobacco use disorder Chronic obstructive pulmonary disease, unspecified COPD type (HCC) Uncomplicated asthma, unspecified asthma severity, unspecified whether persistent Bipolar 2 disorder (HCC) Other bipolar disorders Borderline personality disorder in adult (HCC) documented in this encounter Additional Health Concerns Assessment Noted Time PHQ-9 Depression Total Score: 10 025 3:35 PM EDT PHQ-2 Depression Total Score: 4 04/29/20 25 3:35 PM EDT documented as of this encounter Care Teams Software Applications Developer Relationship Specialty Start Date End Date Ryan Love MD PCP - General Family Medicine 08/14/21 documented as of this encounter
--- OUTSIDE RECORDS SUMMARY | 2025-06-19 08:26 | XMS_ITS | Clinical Summary ---
Author Organization [facility] Address [address] [place] [id number] Phone Care Team Providers Care Long Term Care Pharmacist Name Role Phone Louis PHILLIPS, Tann Unavailable [...]
--- OUTSIDE RECORDS SUMMARY | 2025-06-19 08:26 | XMS_ITS | Encounter Summary ---
Author Organization [facility] [place] [place] [address] Care Team Providers Care Devops Name Role Phone Ryan Love MD Primary Care Provider Encounter Details Date Type Department Care Team (Latest Contact Info) Description 04/29/2025 Travel Social History Tobacco Use Types Packs/Day [...] medical care, and heating? Very hard 04/29/2025 [facility] [place] of Occupat ional Health - Occupational Stress [...] money to get more. Often true 04/29/2025 [facility] Utilities Answer Date Recorded In the past 12 months has th e [employer], gas, oil, or water [employer] threatened to shut off services in your home? No 04/29/2025 [facility] Transportation Answer D ate Recorded [...] Assessment Author No 08/17/2021 12:27 PM Selwyn Welsh, RN * Does this person have serious [...] 08/17/2021 12:27 PM Selwyn Welsh RN * Question Answer Date of Assessment Author Little interest or pleasure in doing things 2 04/29/2025 3:35 PM EDT Hunter Gutierrez RN Feeling down, depressed, or hopeless 2 04/29/2025 3:35 PM EDT Hunter Gutierrez RN PHQ-2 Total Score 4 04/29/2025 3:35 PM EDT Hunter Gutierrez RN Trouble falling or staying asleep, or sleeping too much 2 04/29/2025 3:35 PM EDT Hunter Gutierrez RN Feeling tired or having gomez le energy 2 04/29/2025 3:35 PM EDT Hunter Gutierrez RN Poor appetite or overeating 2 04/29/2025 3: 35 PM EDT Hunter Gutierrez RN Feeling bad about yourself - or that you are a failure or have let yourself or your family down 0 04/29/2025 3:35 PM EDT Hunter Gutierrez RN Trouble concentrating on things, such as reading the newspaper or watching television 0 04/29/2025 3:35 PM DANIELET Hunter Gutierrez RN Moving or speaking so slowly that other people could have noticed. Or the opposite - being so fidgety or restless that you have been moving around a lot more than usual 0 04/29/2025 3:35 PM EDT Hunter Gutierrez RN Thoughts that you would be better off , or of hurting yourself in some way 0 04/29/2025 3:35 PM EDT Paige Gutierrez RN PHQ-9 Total Score 10 04/29/2025 3:35 PM EDT Hunter Gutierrez RN * PHQ-2 Total Score Answer Date of Assessment Author 4 04/29/2025 3:35 PM EDT Hunter Gutierrez RN documented as of this encounter Mental Status * Because of a physical, mental or emotional condition, does this person have serious difficulty concentrating, remembering or making decisions? Answer Entry Date Author No 08/17/2021 12:27 PM EST Selwyn Harrison RN documented in this encounter Plan of Treatment Upcoming Encounters Date Type Department Care Team (Late st Contact Info) Description 07/01/2025 9:00 AM EST Appointment [facility] Imaging [address] [place] [id number] Ken Portillo MD [address] [place] [address] 08/10/2025 9:15 AM EST Office Visit [facility] [address] [place] [address] Magnolia Godoy PA [address] [place] [address] documented as of this encounter Visit Diagnoses Not on filedocumented in this encounter Additional Health Concerns Assessment Noted Time PHQ-9 Depression Total Score: 10 025 3:35 PM EDT PHQ-2 Depression Total Score: 4 04/29/20 25 3:35 PM EDT documented as of this encounter Care Teams Devops Relationship Specialty Start Date End Date Ryan Love MD PCP - General Family Medicine 08/14/21 documented as of this encounter
--- OUTSIDE RECORDS SUMMARY | 2025-06-19 08:26 | XMS_ITS | Encounter Summary ---
Author Organization [place] [address] Care Team Providers Care Review Specialist Name Role Phone Ryan Love MD Primary Care Provider [phone] Reason for Visit * Reason Comments Medication Refill Encounter Details Date Type Department Care Team ([facility] Contact Info) Description 05/04/2025 Refill [facility] [address] [place] [address] [address] [place] [address] Eric Gerardo MD [address] [place] [address] Medication Refill Social History Tobacco Use Types Packs/Day Years [...] medical care, and heating? Very hard 04/29/2025 [facility] [place] of Occupat ional Health - Occupational Stress [...] money to get more. Often true 04/29/2025 [facility] Utilities Answer Date Recorded In the past 12 months has th e electric, gas, oil, or water company threatened to shut off services in your home? No 04/29/2025 [facility] HRSN CMS IP Transportation Answer D [...] Info) Description 07/01/2025 9:00 AM EST Appointment [facility] [address] [place] [address] Ken Portillo MD [address] [place] [address] 08/10/2025 9:15 AM EST Office Visit [facility] [address] [place] [address] Magnolia Godoy PA [address] [place] [address] documented as of this encounter Visit Diagnoses Not on filedocumented in this encounter Additional Health Concerns Assessment Noted Time PHQ-9 Depression Total Score: 10 025 3:35 PM EDT PHQ-2 Depression Total Score: 4 04/29/20 25 3:35 PM EDT documented as of this encounter Care Teams Review Specialist Relationship Specialty Start Date End Date Ryna Love MD PCP - General Family Medicine 08/14/21 documented as of this encounter
--- OUTSIDE RECORDS SUMMARY | 2025-06-19 08:27 | XMS_ITS | Encounter Summary ---
Author Organization [place] [address] Care Team Providers Care Cad Librarian Name Role Phone Ryan Love MD Primary Care Provider [phone] Reason for Visit * Reason Onset Date Comments Anticoagulation 06/18/2025 asa 81 mg Encounter Details Date Type Department Care Team (Late st Contact Info) Description 06/18/2025 Telephone [facility] [address] [place] [address] Ivy Miller MA Anticoagulation (asa 81 mg) Social History Tobacco Use Types Packs/Day Years [...] medical care, and heating? Very hard 04/29/2025 [facility] [place] of Occupat ional Health - Occupational Stress [...] money to get more. Often true 04/29/2025 [facility] Utilities Answer Date Recorded In the past 12 months has th e electric, gas, oil, or water company threatened to shut off services in your home? No 04/29/2025 [facility] HRSN CMS IP Transportation Answer D [...] No 08/17/2021 12:27 PM Selwyn Welsh, RN documented as of this encounter Mental Status * Because of a physical, mental or emotional condition, does this person have serious difficulty concentrating, remembering or making decisions? Answer Entry Date Author No 08/17/2021 12:27 PM EST Selwyn Harrison RN documented in this encounter Miscellaneous Notes * Telephone Encounter - Ivy Miller MA - 06/18/2025 8:58 AM EST Faxed to Daija Argueta APRN with [facility] at [phone] June 18, 2025 Dear Daija Argueta APRN Juliana Olguin [facility]. He / She will be undergoing an outpatient Spinal procedure: Epidural Steroid Injection This medication will need to be held as follows: Aspirin 81 mg- off 5 days for All Cervical procedures/Stellate Ganglion/SCS trials Please let our office know, as soon as possible, if you authorize the patient to hold the medicine as recommended above along with when to restart their next dose. Feel free to contact our office if you have any questions. Yes, this patient may hold the medication as directed above, and should restart days post procedure. No, this patient may NOT hold the medication. PhysicianDEBBIE APRN signature Date signed Thanks for your help in this matter, Please respond via fax back to [phone] documented in this encounter Plan of Treatment Upcoming Encounters Date Type Department Care Team (Late st Contact Info) Description 07/01/2025 9:00 AM EST Appointment [place] [facility] [address] [place] [address] Ken Portillo MD [address] [place] [address] 08/10/2025 9:15 AM EST [facility] [address] [place] [address] Magnolia Godoy PA [address] [place] [address] documented as of this encounter Visit Diagnoses Not on filedocumented in this encounter Additional Health Concerns Assessment Noted Time PHQ-9 Depression Total Score: 10 025 3:35 PM EDT PHQ-2 Depression Total Score: 4 04/29/20 25 3:35 PM EDT documented as of this encounter Care Teams Cad Librarian Relationship Specialty Start Date End Date Ryan Love MD PCP - General Family Medicine 08/14/21 documented as of this encounter
--- OUTSIDE RECORDS SUMMARY | 2025-06-19 08:27 | XMS_ITS | Encounter Summary ---
Author Organization [facility] [place] [address] Care Team Providers Care Button Tacker Name Role Phone Ryan Love MD Primary Care Provider [phone] Reason for Visit * Reason Onset Date Comments New Patient 05/06/2025 Encounter Details Date Type Department Care Team (Late st Contact Info) Description 05/06/[address] [address] Jonna Eason NA New Patient Social History Tobacco Use Types Packs/Day Years [...] medical care, and heating? Very hard 04/29/2025 [facility] [place] of Occupat ional Health - Occupational Stress [...] money to get more. Often true 04/29/2025 [facility] Utilities Answer Date Recorded In the past 12 months has th e [email or web address], gas, oil, or water company threatened to shut off services in your home? No 04/29/2025 [facility] HRSN CMS IP Transportation Answer D [...] of Assessment Author No 08/17/2021 12:27 PM Sewlyn Welsh RN * Is the person blind or does he/she have serious difficulty seeing even when wearing glasses? Answer Date of Assessment Author No 08/17/2021 12:27 PM Selwyn Welhs RN * Does this person have serious [...] encounter Miscellaneous Notes * Telephone Encounter - Jonna Eason NA - 06/01/2025 9:07 AM EST Patient called to schedule a New Patient appointment. Patient was notified of the following prior to scheduling. 1. We would need records from your previous pain clinic. 2. Our physicians DO NOT prescribe pain medication during your consultation and depending on your visit with us we may not be able to prescribe any medication. 3. We are focused on interventional pain management at our office. If patient states they are NOT being prescribed pain medication, patient has been made aware that our office utilizes the state reporting system for controlled medications and if information is not consistent with what the patient has informed us, their appointment will be cancelled and/or rescheduled. Has patient been seen at any other spine/pain specialists in the past two years? no If so, where are med recs coming from? N/A * Telephone Encounter - Lilli Clay MA - 05/29/2025 10:15 AM EST LVM for pt to call back and get scheduled * Telephone Encounter - Jonna Eason NA - 05/06/2025 8:24 AM EDT Attempted to schedule [facility] appt. MCM sent. Pt was last seen in 2020 and is a patient documented in this encounter Plan of Treatment Upcoming Encounters Date Type Department Care Team (Late st Contact Info) Description 07/01/2025 9:[address] [facility] [address] [place] [facility] [place] [address] Ken Portillo MD [address] [place] [address] 08/10/2025 9:15 AM EST [facility] [address] [place] [address] Magnolia Godoy PA [address] [place] [address] documented as of this encounter Visit Diagnoses Not on filedocumented in this encounter Additional Health Concerns Assessment Noted Time PHQ-9 Depression Total Score: 10 025 3:35 PM EDT PHQ-2 Depression Total Score: 4 04/29/20 25 3:35 PM EDT documented as of this encounter Care Teams Button Tacker Relationship Specialty Start Date End Date Ryan Love MD PCP - General Family Medicine 08/14/21 documented as of this encounter
--- OUTSIDE RECORDS SUMMARY | 2025-06-19 08:27 | XMS_ITS | Encounter Summary ---
Author Organization [facility] [place] [address] Care Team Providers Care Filler Operator Name Role Phone Ryan Love MD Primary Care Provider Encounter Details Date Type Department Care Team (Latest Contact Info) Description 05/16/2025 Travel Social History Tobacco Use Types Packs/Day [...] medical care, and heating? Very hard 04/29/2025 [facility] [place] of Occupat ional Health - Occupational Stress [...] money to get more. Often true 04/29/2025 [facility] Utilities Answer Date Recorded In the past 12 months has th e [employer], gas, oil, or water [email or web address] threatened to shut off services in your home? No 04/29/2025 [facility] Answer D ate [...] Date Author No 08/17/2021 12:27 PM EST See, Sta cey L, RN documented in this encounter Plan of Treatment Upcoming Encounters Date Type Department Care Team (Late st Contact Info) Description 07/01/2025 9:00 AM EST Appointment [place] [facility] [address] [place] [address] Ken Portillo MD [address] [place] [address] 08/10/2025 9:15 AM EST Office Visit [facility] [address] [facility] [address] Magnolia Godoy PA [address] [place] [address] documented as of this encounter Visit Diagnoses Not on filedocumented in this encounter Additional Health Concerns Assessment Noted Time PHQ-9 Depression Total Score: 10 025 3:35 PM EDT PHQ-2 Depression Total Score: 4 04/29/20 25 3:35 PM EDT documented as of this encounter Care Teams Filler Operator Relationship Specialty Start Date End Date Ryan Love MD PCP - General Family Medicine 08/14/21 documented as of this encounter
== END 2025-06-17 23:59 ==
LOC: LAB.DROPOF 06-19 08:15
PROVIDERS: PCP Family Medicine; Visit Provider Family Medicine
DX: F43.10 Post-traumatic stress disorder, unspecified (principal); F25.0 Schizoaffective disorder, bipolar type; R73.09 Other abnormal glucose; Z79.899 Other long term (current) drug therapy
CPT/HCPCS: 80053; 80178; 83036; 84443

== ENCOUNTER 2025-06-25 09:51 | Outpatient (CLI) | payer MEDICAID, SELFPAY | END 2025-06-25 23:59 | disposition home or self-care (01) | LOC: RT 09:52 | PROVIDERS: PCP Family Medicine; Visit Provider Nurse Practitioner | DX: R42 Dizziness and giddiness (principal) | CPT/HCPCS: 93225; 93227 ==

== ENCOUNTER 2025-06-27 10:08 | Outpatient (CLI) | payer MEDICAID, SELFPAY | END 2025-06-27 23:59 | disposition home or self-care (01) | LOC: RT 10:08 | PROVIDERS: PCP Family Medicine; Visit Provider Nurse Practitioner | DX: R00.1 Bradycardia, unspecified (principal); R42 Dizziness and giddiness; R00.2 Palpitations; R94.31 Abnormal electrocardiogram [ECG] [EKG] | CPT/HCPCS: 93270 ==